=== PATIENT | male | born 1945 | race Caucasian/White ===

== ENCOUNTER 2019-03-11 23:36 | Inpatient (IN) | payer MEDICARE, OTHER ==
[~2019-03-11] VITALS: Ht 172.7 cm; Wt 94.8 kg
[2019-03-12] MEDS ORDERED: VANCOMYCIN 1GM IVPB FOR OMNI 250 ML IV ONE (00:45)
[2019-03-12 00:58] LABS: BASO # 0.1 x10^3/uL (0.0-0.2); BASO % 1 % (0-3); EOS # 0.7 x10^3/uL (0.0-0.7); EOS % 6 % (0-3); HEMATOCRIT 43.2 % (39.0-53.0); HEMOGLOBIN 14.8 g/dL (13.0-17.5); LYMPH # 2.1 x10^3/uL (1.0-4.8); LYMPH % 19 % (24-48); MEAN CORPUSCULAR HEMOGLOBIN 30 pg (25-35); MEAN CORPUSCULAR HGB CONC 34 g/dL (31-37); MEAN CORPUSCULAR VOLUME 88 fL (79-100); MONO # 1.1 x10^3/uL (0.0-1.1); MONO % 11 % (0-9); NEUT # 6.7 x10^3/uL (1.8-7.7); NEUT % 63 % (31-73); PLATELET COUNT 238 x10^3/uL (140-400); RED CELL DISTRIBUTION WIDTH 14.1 % (11.5-14.5); WHITE BLOOD COUNT 10.7 x10^3/uL (4.0-11.0)
[2019-03-12] MEDS ORDERED: VANCOMYCIN 2 GM in IV NORMAL SALINE 500ML BAG 500 ML IV ONE (01:00)
[2019-03-12] MEDS ORDERED: MORPHINE SULFATE 4 MG/ML VIAL. IV ONE (01:00)
[2019-03-12 01:09] LABS: CALCIUM 9.2 mg/dL (8.5-10.1); CREATININE 1.2 mg/dL (0.7-1.3)
[2019-03-12 01:10] LABS: GFR 59.5; PROTHROMBIN TIME PATIENT 13.8 SEC (11.7-14.0)
--- NOTE | 2019-03-12 01:14 | RAD ---
Left lower extremity venous duplex study 03/12/2019 Clinical History: Left leg pain and redness. Technique: Using a combination of real time ultrasound imaging and color-flow and pulse Doppler imaging techniques along with graded compression and augmentation, duplex evaluation of the deep venous system of the left lower extremity was performed. Multiple images were obtained. Findings: There is no sonographic evidence of deep venous thrombosis involving the visualized deep venous structures of the left lower extremity. Impression: Negative study. Electronically signed by: Barrie Marshall MD (03/12/2019 1:11 AM) [facility]
[2019-03-12 01:15] LABS: ALBUMIN 3.3 g/dL (3.4-5.0); ALBUMIN/GLOBULIN RATIO 0.8 (1.0-1.7); TOTAL BILIRUBIN 0.7 mg/dL (0.2-1.0); TOTAL PROTEIN 7.6 g/dL (6.4-8.2)
--- NOTE | 2019-03-12 01:20 | PHYS DOC ---
Past Medical History Past Medical History: CAD, High Cholesterol, Hypertension, Hyperthyroid, [place] Additional Past Medical Histor: PTSD Past Surgical History: Appendectomy Additional Information: VAPES Alcohol Use: None Drug Use: None Social History Narrative: PT STATES HE DID SPEED FOR 50 YEARS, IS NOW SOBER Adult General Chief Complaint Chief Complaint: CELLULITIS HPI HPI Patient is a 73 year old male who presented to ER today for evaluation of left leg swelling and pain, rash for about 5 months. He had been evaluated and treated [place] the [place], had been taking antibiotics and applied antibiotic ointment to his leg but he did not get any better. Patient said the pain is getting worse so he came here for evaluation. Patient denies any fever. Patient denies any chest pain, no trouble breathing. Review of Systems Review of Systems Constitutional: Denies fever or chills [] Eyes: Denies change in visual acuity, redness, or eye pain [] HENT: Denies nasal congestion or sore throat [] Respiratory: Denies cough or shortness of breath [] Cardiovascular: No additional information not addressed in HPI [] GI: Denies abdominal pain, nausea, vomiting, bloody stools or diarrhea [] : Denies dysuria or hematuria [] Musculoskeletal: Denies back pain, left leg pain and swelling. Integument: rash on legs. Neurologic: Denies headache, focal weakness or sensory changes [] Endocrine: Denies polyuria or polydipsia [] All other systems were reviewed and found to be within normal limits, except as documented in this note. Current Medications Current Medications Current Medications Medications (Trade) Dose Ordered Sig/Marcio Start Time Stop Time Status Last Admin Dose Admin Morphine Sulfate (Morphine Sulfate) 4 mg 1X ONCE 03/12/19 01:00 03/12/19 01:01 DC 03/12/19 00:58 4 MG Vancomycin HCl (Vanco Per Pharmacy) 1 each PRN DAILY PRN 03/12/19 00:45 03/12/19 04:31 1 EACH Vancomycin HCl 2 gm/Sodium Chloride 500 ml @ 250 mls/hr 1X ONCE 03/12/19 01:00 03/12/19 02:59 DC 03/12/19 01:00 250 MLS/HR Allergies Allergies Allergies Coded Allergies Type Severity Reaction Last Updated Verified No Known Drug Allergies 03/12/19 No Physical Exam Physical Exam Constitutional: Well developed, well nourished, no acute distress, non-toxic appearance. [] HENT: Normocephalic, atraumatic, bilateral external ears normal, oropharynx moist, no oral exudates, nose normal. [] Eyes: PERRLA, EOMI, conjunctiva normal, no discharge. [] Neck: Normal range of motion, no tenderness, supple, no stridor. [] Cardiovascular:Heart rate regular rhythm, no murmur [] Lungs & Thorax: Bilateral breath sounds clear to auscultation [] Abdomen: Bowel sounds normal, soft, no tenderness, no masses, no pulsatile masses. [] Skin: Warm, dry, venous stasis appearance on both legs, worse on left leg, erythema, crusted lesions, with clear fluid oozing from the wound. Back: No tenderness, no CVA tenderness. [] Extremities: left leg is erythematous, swollen, tender to palpation. Neurologic: Alert and oriented X 3, normal motor function, normal sensory function, no focal deficits noted. [] Psychologic: Affect normal, judgement normal, mood normal. [] Current Patient Data Vital Signs Vital Signs Date Time Temp Pulse Resp B/P (MAP) Pulse Ox O2 Delivery O2 Flow Rate FiO2 03/12/19 00:58 18 03/12/19 00:20 100.2 71 174/81 (112) 93 Room Air 100.2 Lab Values Laboratory Tests Test 03/12/19 00:26 White Blood Count 10.7 x10^3/uL (4.0-11.0) Red Blood Count 4.90 x10^6/uL (4.30-5.70) Hemoglobin 14.8 g/dL (13.0-17.5) Hematocrit 43.2 % (39.0-53.0) Mean Corpuscular Volume 88 fL (79-100) Mean Corpuscular Hemoglobin 30 pg (25-35) Mean Corpuscular Hemoglobin Concent 34 g/dL (31-37) Red Cell Distribution Width 14.1 % (11.5-14.5) Platelet Count 238 x10^3/uL (140-400) Neutrophils (%) (Auto) 63 % (31-73) Lymphocytes (%) (Auto) 19 % (24-48) L Monocytes (%) (Auto) 11 % (0-9) H Eosinophils (%) (Auto) 6 % (0-3) H Basophils (%) (Auto) 1 % (0-3) Neutrophils # (Auto) 6.7 x10^3/uL (1.8-7.7) Lymphocytes # (Auto) 2.1 x10^3/uL (1.0-4.8) Monocytes # (Auto) 1.1 x10^3/uL (0.0-1.1) Eosinophils # (Auto) 0.7 x10^3/uL (0.0-0.7) Basophils # (Auto) 0.1 x10^3/uL (0.0-0.2) Prothrombin Time 13.8 SEC (11.7-14.0) Prothrombin Time INR 1.1 (0.8-1.1) PTT 27 SEC (24-38) Sodium Level 140 mmol/L (136-145) Potassium Level 3.0 mmol/L (3.5-5.1) L Chloride Level 102 mmol/L (98-107) Carbon Dioxide Level 28 mmol/L (21-32) Anion Gap 10 (6-14) Blood Urea Nitrogen 16 mg/dL (8-26) Creatinine 1.2 mg/dL (0.7-1.3) Estimated GFR (Cockcroft-Gault) 59.5 BUN/Creatinine Ratio 13 (6-20) Glucose Level 140 mg/dL (70-99) H Calcium Level 9.2 mg/dL (8.5-10.1) Total Bilirubin 0.7 mg/dL (0.2-1.0) Aspartate Amino Transferase (AST) 15 U/L (15-37) Alanine Aminotransferase (ALT) 23 U/L (16-63) Alkaline Phosphatase 160 U/L (46-116) H YG-Syk-W-Type Natriuretic Peptide 208 pg/mL (0-124) H Total Protein 7.6 g/dL (6.4-8.2) Albumin 3.3 g/dL (3.4-5.0) L Albumin/Globulin Ratio 0.8 (1.0-1.7) L Laboratory Tests 03/12/19 00:26 Laboratory Tests 03/12/19 00:26 EKG EKG [] Radiology/Procedures Radiology/Procedures [][facility] [address] [place] [address] IMAGING REPORT Signed PATIENT: PRESTON HAMILTON ACCOUNT: [id number] : 1945 LOCATION: ER AGE: 73 SEX: M EXAM STATUS: REG ER ORD. PHYSICIAN: KATIE MENDOZA DO REASON: LEFT LEG PAIN AND SWELLING PROCEDURE: VENOUS LOWER EXTREMITY LEFT Left lower extremity venous duplex study 03/12/2019 Clinical History: Left leg pain and redness. Technique: Using a combination of real time ultrasound imaging and color-flow and pulse Doppler imaging techniques along with graded compression and augmentation, duplex evaluation of the deep venous system of the left lower extremity was performed. Multiple images were obtained. Findings: There is no sonographic evidence of deep venous thrombosis involving the visualized deep venous structures of the left lower extremity. Impression: Negative study. Electronically signed by: Barrie Orlando MD (03/12/2019 1:11 AM) [facility] DICTATED and SIGNED BY: BARRIE ORLANDO MD DATE: 03/12/19 011 Course & Med Decision Making Course & Med Decision Making Pertinent Labs and Imaging studies reviewed. (See chart for details) [] Dragon Disclaimer Dragon Disclaimer This electronic medical record was generated, in whole or in part, using a voice recognition dictation system. Departure Departure Impression: Primary Impression: Cellulitis of left lower extremity Disposition: ADMITTED INPATIENT Admitting Physician: YUNIOR Condition: STABLE Referrals: NO PCP (PCP) KATIE MENDOZA DO Mar 12, 2019 01:20
[2019-03-12] MEDS ORDERED: ONDANSETRON PF 4 MG/2 ML VIAL. IV PRN (01:30)
[2019-03-12] MEDS ORDERED: POTASSIUM CHLORIDE 20 MEQ TABLET.ER. PO ONE ×2 (02:00→14:15)
[2019-03-12 02:15] VITALS: BP 183/95
[2019-03-12] MEDS ORDERED: METO50TA6 PO (03:35)
[2019-03-12] MEDS: VANCOMYCIN PER PHARMACY MC PRN ×2 (04:31→12:26)
--- NOTE | 2019-03-12 04:31 | NUR ---
Pharmacy Vancomycin Dosing Note S:Consulted to monitor and dose vancomycin started 03/12/19. O:PRESTON HAMILTON is a 73 year old M with Cellulitis . Height: 5 feet, 8 inches Weight: 94.593965 kg Carter Body Weight: 68.40 Adjusted Body Weight: 78.96 Dosing Weight: Actual Other Antibiotics: LABS: Last BUN: 16 Last Creatinine: 1.2 Creatinine Clearance: 62 mL/min Last WBC: 10.7 Last Procalcitonin: Tmax (past 24 hours): Microbiology: I/O: Drug Levels: Last level: on at Last dose given 03/12/19 at 0100 Vancomycin Dosing: Loading Dose: 2000 mg x1 Dosing Weight: Actual Target Trough: 10-20 A: Based on: WT AND CRCL P: 1. Vancomycin 1250 mg IV q12h 2. Follow up Trough level on 03/13/19 at 1230 3. Pharmacy will continue to monitor, follow and adjust therapy as needed. CHARU MONCADA RPH, 03/12/19 0431 Signed: 03/12/19 at 0432 by CHARU MONCADA RPH PHA
[2019-03-12] MEDS: MORPHINE SULFATE 4 MG/ML VIAL. IV PRN ×3 (06:50→22:21)
[2019-03-12 07:00] VITALS: BP 135/75
--- NOTE | 2019-03-12 10:45 | NUR ---
wound care patient seen per wound care consult. see wound assessment. patient has a large stasis ulcer with a moderate amount of yellow creamy drainage to the left lower leg, the wound was cleaned, measured and redressed with Aquacel Ag with a non adherent foam with Kerlix and tape. patient need lotion applied to bilateral lower leg with Xeroform gauze over the dry scaly areas. dressings applied at this time. patient assessed from head to toe an no other wounds noted at this time. wound care will continue to f/u.
[2019-03-12 11:00] VITALS: BP 151/85
[2019-03-12] MEDS: HYDROcodone/APAP 5/325MG 1 TAB TABLET PO PRN ×2 (12:06→20:21)
--- NOTE | 2019-03-12 12:13 | PDOC1 ---
History and Physical Date of Admission Date of Admission DATE: 03/12/19 TIME: 12:12 Identification/Chief Complaint Chief Complaint SEEN IN er , 73 year old male who presented to ER today for evaluation of left leg swelling and pain, rash for about 5 months. He had been evaluated and treated at the [place], had been taking antibiotics and applied antibiotic ointment to his leg but he did not get any better. Patient said the pain is getting worse so he came here for evaluation. Patient denies any fever Past Medical History Past Medical History Past Medical History Past Medical History: CAD, High Cholesterol, Hypertension, Hyperthyroid, [place] Additional Past Medical Histor: PTSD Past Surgical History: Appendectomy Additional Information: VAPES Alcohol Use: None Drug Use: None Social History Narrative: PT STATES HE DID SPEED FOR 50 YEARS, IS NOW SOBER family hx obesity Family History Family History: High Cholestrol Social History Smoke: No ALCOHOL: none Drugs: None Current Medications Current Medications Current Medications Vancomycin HCl 250 ml @ 250 mls/hr 1X ONCE IV ; Start 03/12/19 at 00:45; Stop 03/12/19 at 01:44; Status UNV Morphine Sulfate (Morphine Sulfate) 4 mg 1X ONCE IV Last administered on 03/12at 00:58; Start 03/12/19 at 01:00; Stop 03/12/19 at 01:01; Status DC Vancomycin HCl (Vanco Per Pharmacy) 1 each PRN DAILY PRN MC SEE COMMENTS Last administered on 03/12/19at 04:31; Start 03/12/19 at 00:45 Vancomycin HCl 2 gm/Sodium Chloride 500 ml @ 250 mls/hr 1X ONCE IV Last administered on 03/12/19at 01:00; Start 03/12/19 at 01:00; Stop 03/12/19 at 02:59; Status DC Ondansetron HCl (Zofran) 4 mg PRN Q8HRS PRN IV NAUSEA/VOMITING 1ST CHOICE; Start 03/12/19 at 01:30; Stop 03/13/19 at 01:29 Morphine Sulfate (Morphine Sulfate) 4 mg PRN Q6HRS PRN IV SEVERE PAIN 7-10 Last administered on 03/12/19at 06:50; Start 03/12/19 at 01:30 Potassium Chloride (Klor-Con) 40 meq 1X ONCE PO Last administered on 03/12/19at 03:06; Start 03/12/19 at 02:00; Stop 03/12/19 at 02:01; Status DC Vancomycin HCl 1.25 gm/Sodium Chloride 250 ml @ 167 mls/hr Q12H IV ; Start 03/12/19 at 13:00 Vancomycin HCl (Vancomycin Trough Level) 1 each 1X ONCE MC ; Start 03/13/19 at 12:30; Stop 03/13/19 at 12:31 Acetaminophen/ Hydrocodone Bitart (Lortab 5/325) 1 tab PRN Q4HRS PRN PO PAIN Last administered on 03/12/19at 12:06; Start 03/12/19 at 12:00 Active Scripts Active Reported Metoprolol Tartrate 50 Mg Tablet 1 Tab PO BID Allergies Allergies: Coded Allergies: No Known Drug Allergies (Unverified , 03/12/19) ROS Review of System Review of Systems Review of Systems Constitutional: Denies fever or chills [] Eyes: Denies change in visual acuity, redness, or eye pain [] HENT: Denies nasal congestion or sore throat [] Respiratory: Denies cough or shortness of breath [] Cardiovascular: No additional information not addressed in HPI [] GI: Denies abdominal pain, nausea, vomiting, bloody stools or diarrhea [] : Denies dysuria or hematuria [] Musculoskeletal: Denies back pain, left leg pain and swelling. Integument: rash on legs. Neurologic: Denies headache, focal weakness or sensory changes [] Endocrine: Denies polyuria or polydipsia [] 14 pt systems were reviewed and found to be within normal limits, except as documented . Physical Exam Physical Exam Physical Exam Physical Exam Constitutional: Well developed, well nourished, no acute distress, non-toxic appearance. [] HENT: Normocephalic, atraumatic, bilateral external ears normal, oropharynx moist, no oral exudates, nose normal. [] Eyes: PERRLA, EOMI, conjunctiva normal, no discharge. [] Neck: Normal range of motion, no tenderness, supple, no stridor. [] Cardiovascular:Heart rate regular rhythm, no murmur [] Lungs & Thorax: Bilateral breath sounds clear to auscultation [] Abdomen: Bowel sounds normal, soft, no tenderness, no masses, no pulsatile masses. [] Skin: Warm, dry, venous stasis appearance on both legs, worse on left leg, erythema, crusted lesions, with clear fluid oozing from the wound. Back: No tenderness, no CVA tenderness. [] Extremities: left leg is erythematous, swollen, tender to palpation. Neurologic: Alert and oriented X 3, normal motor function, normal sensory function, no focal deficits noted. [] Psychologic: Affect normal, judgement normal, mood normal. [] General: Alert, Oriented X3, Cooperative HEENT: EOMI, Mucous membr. moist/pink Rectal Exam: not examined PELVIC: Examination not indicated Extremities: No cyanosis Neuro: Normal speech, Cranial nerves 3-12 NL Psych/Mental Status: Mental status NL, Mood NL Vitals Vitals Vital Signs Date Time Temp Pulse Resp B/P (MAP) Pulse Ox O2 Delivery O2 Flow Rate FiO2 03/12/19 12:06 Room Air 03/12/19 11:00 99.2 106 17 151/85 (107) 92 99.2 Labs Labs Laboratory Tests Test 03/12/19 00:26 White Blood Count 10.7 x10^3/uL (4.0-11.0) Red Blood Count 4.90 x10^6/uL (4.30-5.70) Hemoglobin 14.8 g/dL (13.0-17.5) Hematocrit 43.2 % (39.0-53.0) Mean Corpuscular Volume 88 fL (79-100) Mean Corpuscular Hemoglobin 30 pg (25-35) Mean Corpuscular Hemoglobin Concent 34 g/dL (31-37) Red Cell Distribution Width 14.1 % (11.5-14.5) Platelet Count 238 x10^3/uL (140-400) Neutrophils (%) (Auto) 63 % (31-73) Lymphocytes (%) (Auto) 19 % (24-48) Monocytes (%) (Auto) 11 % (0-9) Eosinophils (%) (Auto) 6 % (0-3) Basophils (%) (Auto) 1 % (0-3) Neutrophils # (Auto) 6.7 x10^3/uL (1.8-7.7) Lymphocytes # (Auto) 2.1 x10^3/uL (1.0-4.8) Monocytes # (Auto) 1.1 x10^3/uL (0.0-1.1) Eosinophils # (Auto) 0.7 x10^3/uL (0.0-0.7) Basophils # (Auto) 0.1 x10^3/uL (0.0-0.2) Prothrombin Time 13.8 SEC (11.7-14.0) Prothromb Time International Ratio 1.1 (0.8-1.1) Activated Partial Thromboplast Time 27 SEC (24-38) Sodium Level 140 mmol/L (136-145) Potassium Level 3.0 mmol/L (3.5-5.1) Chloride Level 102 mmol/L (98-107) Carbon Dioxide Level 28 mmol/L (21-32) Anion Gap 10 (6-14) Blood Urea Nitrogen 16 mg/dL (8-26) Creatinine 1.2 mg/dL (0.7-1.3) Estimated GFR (Cockcroft-Gault) 59.5 BUN/Creatinine Ratio 13 (6-20) Glucose Level 140 mg/dL (70-99) Calcium Level 9.2 mg/dL (8.5-10.1) Total Bilirubin 0.7 mg/dL (0.2-1.0) Aspartate Amino Transf (AST/SGOT) 15 U/L (15-37) Alanine Aminotransferase (ALT/SGPT) 23 U/L (16-63) Alkaline Phosphatase 160 U/L (46-116) XA-Eqi-V-Type Natriuretic Peptide 208 pg/mL (0-124) Total Protein 7.6 g/dL (6.4-8.2) Albumin 3.3 g/dL (3.4-5.0) Albumin/Globulin Ratio 0.8 (1.0-1.7) Laboratory Tests Test 03/12/19 00:26 White Blood Count 10.7 x10^3/uL (4.0-11.0) Red Blood Count 4.90 x10^6/uL (4.30-5.70) Hemoglobin 14.8 g/dL (13.0-17.5) Hematocrit 43.2 % (39.0-53.0) Mean Corpuscular Volume 88 fL (79-100) Mean Corpuscular Hemoglobin 30 pg (25-35) Mean Corpuscular Hemoglobin Concent 34 g/dL (31-37) Red Cell Distribution Width 14.1 % (11.5-14.5) Platelet Count 238 x10^3/uL (140-400) Neutrophils (%) (Auto) 63 % (31-73) Lymphocytes (%) (Auto) 19 % (24-48) Monocytes (%) (Auto) 11 % (0-9) Eosinophils (%) (Auto) 6 % (0-3) Basophils (%) (Auto) 1 % (0-3) Neutrophils # (Auto) 6.7 x10^3/uL (1.8-7.7) Lymphocytes # (Auto) 2.1 x10^3/uL (1.0-4.8) Monocytes # (Auto) 1.1 x10^3/uL (0.0-1.1) Eosinophils # (Auto) 0.7 x10^3/uL (0.0-0.7) Basophils # (Auto) 0.1 x10^3/uL (0.0-0.2) Prothrombin Time 13.8 SEC (11.7-14.0) Prothromb Time International Ratio 1.1 (0.8-1.1) Activated Partial Thromboplast Time 27 SEC (24-38) Sodium Level 140 mmol/L (136-145) Potassium Level 3.0 mmol/L (3.5-5.1) Chloride Level 102 mmol/L (98-107) Carbon Dioxide Level 28 mmol/L (21-32) Anion Gap 10 (6-14) Blood Urea Nitrogen 16 mg/dL (8-26) Creatinine 1.2 mg/dL (0.7-1.3) Estimated GFR (Cockcroft-Gault) 59.5 BUN/Creatinine Ratio 13 (6-20) Glucose Level 140 mg/dL (70-99) Calcium Level 9.2 mg/dL (8.5-10.1) Total Bilirubin 0.7 mg/dL (0.2-1.0) Aspartate Amino Transf (AST/SGOT) 15 U/L (15-37) Alanine Aminotransferase (ALT/SGPT) 23 U/L (16-63) Alkaline Phosphatase 160 U/L (46-116) TU-Cxc-M-Type Natriuretic Peptide 208 pg/mL (0-124) Total Protein 7.6 g/dL (6.4-8.2) Albumin 3.3 g/dL (3.4-5.0) Albumin/Globulin Ratio 0.8 (1.0-1.7) Images Images Left lower extremity venous duplex study 03/12/2019 Clinical History: Left leg pain and redness. Technique: Using a combination of real time ultrasound imaging and color-flow and pulse Doppler imaging techniques along with graded compression and augmentation, duplex evaluation of the deep venous system of the left lower extremity was performed. Multiple images were obtained. Findings: There is no sonographic evidence of deep venous thrombosis involving the visualized deep venous structures of the left lower extremity. Impression: Negative study. VTE Prophylaxis Ordered VTE Prophylaxis Devices: Contraindicated VTE Pharmacological Prophylaxi: Yes Assessment/Plan Assessment/Plan Impression: Cellulitis of left lower extremity obesity hypokalemia pain at site of cellulitis hypertension plan ADMITTED /// INPATIENT emperic iv antibiotics, vanc replace k po am labs dvt prophylaxis, sq lovenox iv pain control 63 min pt exam, chart review, > 50% of time spent with exam, chart review, pt care coordination LAUREL GLASS MD Mar 12, 2019 12:13
[2019-03-12] MEDS: VANCOMYCIN 1.25 GM in IV NORMAL SALINE 250ML 250 ML IV SCH (12:59)
--- NOTE | 2019-03-12 13:24 | NUR ---
SS following for discharge planning. SS reviewed pt chart. Pt is from home and is currently on room air. PT/OT ordered. SS will await PT/OT evaluations and recommendations and will proceed accordingly with discharge planning.
[2019-03-12] MEDS: METOPROLOL TART IMMED RELEASE 50 MG TABLET. PO SCH ×2 (14:40→20:22)
[2019-03-12 15:00] VITALS: BP 161/80
[2019-03-12] MEDS: ENOXAPARIN 40 MG/0.4 ML SYRINGE. SQ SCH (17:22)
[2019-03-12] MEDS: ASCORBIC ACID 500 MG TABLET PO SCH (17:22)
[2019-03-12] MEDS: MULTIVITAMIN with MINERAL TABLET. PO SCH (17:22)
[2019-03-12 19:35] VITALS: BP 100/67
[2019-03-12] MEDS ORDERED: NICOTINE POLACRILEX 2MG GUM PACKAGE of 12. BC PRN (19:45)
[2019-03-12] MEDS ORDERED: POLYETHYLENE GLYCOL 3350 17 GM PACKET. PO PRN (19:45)
[2019-03-12] MEDS ORDERED: CALCIUM CARBONATE 500 MG TAB.CHEW PO PRN (19:45)
[2019-03-12] MEDS ORDERED: MAGNESIUM HYDROXIDE 2,400 MG/30 ML ORAL.SUSP. PO PRN (19:45)
[2019-03-12] MEDS: NICOTINE 21MG PATCH. TD PRN (20:21)
[2019-03-12] MEDS: LACTOBACILLUS RHAMNOSUS GG 1 CAPSULE. PO SCH (20:21)
[2019-03-12] MEDS: TEMAZEPAM 7.5 MG CAPSULE PO PRN (20:21)
[2019-03-12 23:35] VITALS: BP 137/76
[2019-03-13] MEDS: VANCOMYCIN 1.25 GM in IV NORMAL SALINE 250ML 250 ML IV SCH ×2 (00:19→15:02)
[2019-03-13 03:35] VITALS: BP 119/61
[2019-03-13 05:52] LABS: BASO # 0.2 x10^3/uL (0.0-0.2); BASO % 2 % (0-3); EOS # 0.7 x10^3/uL (0.0-0.7); EOS % 7 % (0-3); HEMATOCRIT 40.1 % (39.0-53.0); HEMOGLOBIN 13.8 g/dL (13.0-17.5); LYMPH # 1.7 x10^3/uL (1.0-4.8); LYMPH % 17 % (24-48); MEAN CORPUSCULAR HEMOGLOBIN 31 pg (25-35); MEAN CORPUSCULAR HGB CONC 35 g/dL (31-37); MEAN CORPUSCULAR VOLUME 89 fL (79-100); MONO % 10 % (0-9); NEUT # 6.3 x10^3/uL (1.8-7.7); NEUT % 64 % (31-73); PLATELET COUNT 226 x10^3/uL (140-400); RED BLOOD COUNT 4.53 x10^6/uL (4.30-5.70); RED CELL DISTRIBUTION WIDTH 14.5 % (11.5-14.5); WHITE BLOOD COUNT 9.9 x10^3/uL (4.0-11.0)
[2019-03-13 06:10] LABS: ALBUMIN/GLOBULIN RATIO 0.8 (1.0-1.7); CALCIUM 8.8 mg/dL (8.5-10.1); CREATININE 1.1 mg/dL (0.7-1.3); GFR 65.8; POTASSIUM 3.6 mmol/L (3.5-5.1); TOTAL BILIRUBIN 0.7 mg/dL (0.2-1.0); TOTAL PROTEIN 6.7 g/dL (6.4-8.2)
[2019-03-13 07:00] VITALS: BP 143/75
[2019-03-13] MEDS ORDERED: OXYC1TAB15 PO (07:51)
[2019-03-13] MEDS ORDERED: oxyCODONE/APAP 5/325 1 TAB TABLET PO PRN (08:00)
[2019-03-13] MEDS: oxyCODONE/APAP 5/325 1 TAB TABLET PO PRN ×2 (08:40→19:10)
[2019-03-13] MEDS: METOPROLOL TART IMMED RELEASE 50 MG TABLET. PO SCH ×2 (08:40→21:10)
[2019-03-13] MEDS: MULTIVITAMIN with MINERAL TABLET. PO SCH (08:40)
[2019-03-13] MEDS: ASCORBIC ACID 500 MG TABLET PO SCH (08:40)
[2019-03-13] MEDS: LACTOBACILLUS RHAMNOSUS GG 1 CAPSULE. PO SCH ×2 (08:40→21:10)
[2019-03-13] MEDS: POTASSIUM CHLORIDE 20 MEQ TABLET.ER. PO SCH (08:40)
[2019-03-13] MEDS: diphenhydrAMINE HCL 25 MG CAPSULE PO PRN (08:41)
--- NOTE | 2019-03-13 10:29 | PDOC ---
PROGRESS NOTES History of Present Illness History of Present Illness Clinical History: Left leg pain and redness. Technique: Using a combination of real time ultrasound imaging and color-flow and pulse Doppler imaging techniques along with graded compression and augmentation, duplex evaluation of the deep venous system of the left lower extremity was performed. Multiple images were obtained. Findings: There is no sonographic evidence of deep venous thrombosis involving the visualized deep venous structures of the left lower extremity. Impression: Negative study. VTE Prophylaxis Ordered VTE Prophylaxis Devices: Contraindicated VTE Pharmacological Prophylaxi: Yes Assessment/Plan Assessment/Plan Impression: Cellulitis of left lower extremity obesity hypokalemia pain at site of cellulitis hypertension plan ADMITTED /// INPATIENT emperic iv antibiotics, vanc replace k po am labs dvt prophylaxis, sq lovenox iv pain control ID consult 26 min pt exam, chart review, > 50% of time spent with exam, chart review, pt care coordination Vitals Vitals Vital Signs Date Time Temp Pulse Resp B/P (MAP) Pulse Ox O2 Delivery O2 Flow Rate FiO2 03/13/19 08:40 Room Air 03/13/19 08:40 85 143/75 03/13/19 07:00 99.0 18 90 99.0 Physical Exam General: Alert, Oriented X3, Cooperative, No acute distress Heart: Regular rate Lungs: Clear Abdomen: Normal bowel sounds, Soft, No tenderness Extremities: No clubbing, No cyanosis Labs LABS Laboratory Tests Test 03/13/19 04:15 White Blood Count 9.9 x10^3/uL (4.0-11.0) Red Blood Count 4.53 x10^6/uL (4.30-5.70) Hemoglobin 13.8 g/dL (13.0-17.5) Hematocrit 40.1 % (39.0-53.0) Mean Corpuscular Volume 89 fL (79-100) Mean Corpuscular Hemoglobin 31 pg (25-35) Mean Corpuscular Hemoglobin Concent 35 g/dL (31-37) Red Cell Distribution Width 14.5 % (11.5-14.5) Platelet Count 226 x10^3/uL (140-400) Neutrophils (%) (Auto) 64 % (31-73) Lymphocytes (%) (Auto) 17 % (24-48) Monocytes (%) (Auto) 10 % (0-9) Eosinophils (%) (Auto) 7 % (0-3) Basophils (%) (Auto) 2 % (0-3) Neutrophils # (Auto) 6.3 x10^3/uL (1.8-7.7) Lymphocytes # (Auto) 1.7 x10^3/uL (1.0-4.8) Monocytes # (Auto) 1.0 x10^3/uL (0.0-1.1) Eosinophils # (Auto) 0.7 x10^3/uL (0.0-0.7) Basophils # (Auto) 0.2 x10^3/uL (0.0-0.2) Sodium Level 139 mmol/L (136-145) Potassium Level 3.6 mmol/L (3.5-5.1) Chloride Level 104 mmol/L (98-107) Carbon Dioxide Level 27 mmol/L (21-32) Anion Gap 8 (6-14) Blood Urea Nitrogen 18 mg/dL (8-26) Creatinine 1.1 mg/dL (0.7-1.3) Estimated GFR (Cockcroft-Gault) 65.8 BUN/Creatinine Ratio 16 (6-20) Glucose Level 111 mg/dL (70-99) Calcium Level 8.8 mg/dL (8.5-10.1) Total Bilirubin 0.7 mg/dL (0.2-1.0) Aspartate Amino Transf (AST/SGOT) 16 U/L (15-37) Alanine Aminotransferase (ALT/SGPT) 21 U/L (16-63) Alkaline Phosphatase 137 U/L (46-116) Total Protein 6.7 g/dL (6.4-8.2) Albumin 3.0 g/dL (3.4-5.0) Albumin/Globulin Ratio 0.8 (1.0-1.7) Comment Review of Relevant I have reviewed the following items ben (where applicable) has been applied. Labs Laboratory Tests Test 03/12/19 00:26 03/13/19 04:15 White Blood Count 10.7 x10^3/uL (4.0-11.0) 9.9 x10^3/uL (4.0-11.0) Red Blood Count 4.90 x10^6/uL (4.30-5.70) 4.53 x10^6/uL (4.30-5.70) Hemoglobin 14.8 g/dL (13.0-17.5) 13.8 g/dL (13.0-17.5) Hematocrit 43.2 % (39.0-53.0) 40.1 % (39.0-53.0) Mean Corpuscular Volume 88 fL (79-100) 89 fL (79-100) Mean Corpuscular Hemoglobin 30 pg (25-35) 31 pg (25-35) Mean Corpuscular Hemoglobin Concent 34 g/dL (31-37) 35 g/dL (31-37) Red Cell Distribution Width 14.1 % (11.5-14.5) 14.5 % (11.5-14.5) Platelet Count 238 x10^3/uL (140-400) 226 x10^3/uL (140-400) Neutrophils (%) (Auto) 63 % (31-73) 64 % (31-73) Lymphocytes (%) (Auto) 19 % (24-48) 17 % (24-48) Monocytes (%) (Auto) 11 % (0-9) 10 % (0-9) Eosinophils (%) (Auto) 6 % (0-3) 7 % (0-3) Basophils (%) (Auto) 1 % (0-3) 2 % (0-3) Neutrophils # (Auto) 6.7 x10^3/uL (1.8-7.7) 6.3 x10^3/uL (1.8-7.7) Lymphocytes # (Auto) 2.1 x10^3/uL (1.0-4.8) 1.7 x10^3/uL (1.0-4.8) Monocytes # (Auto) 1.1 x10^3/uL (0.0-1.1) 1.0 x10^3/uL (0.0-1.1) Eosinophils # (Auto) 0.7 x10^3/uL (0.0-0.7) 0.7 x10^3/uL (0.0-0.7) Basophils # (Auto) 0.1 x10^3/uL (0.0-0.2) 0.2 x10^3/uL (0.0-0.2) Prothrombin Time 13.8 SEC (11.7-14.0) Prothromb Time International Ratio 1.1 (0.8-1.1) Activated Partial Thromboplast Time 27 SEC (24-38) Sodium Level 140 mmol/L (136-145) 139 mmol/L (136-145) Potassium Level 3.0 mmol/L (3.5-5.1) 3.6 mmol/L (3.5-5.1) Chloride Level 102 mmol/L (98-107) 104 mmol/L (98-107) Carbon Dioxide Level 28 mmol/L (21-32) 27 mmol/L (21-32) Anion Gap 10 (6-14) 8 (6-14) Blood Urea Nitrogen 16 mg/dL (8-26) 18 mg/dL (8-26) Creatinine 1.2 mg/dL (0.7-1.3) 1.1 mg/dL (0.7-1.3) Estimated GFR (Cockcroft-Gault) 59.5 65.8 BUN/Creatinine Ratio 13 (6-20) 16 (6-20) Glucose Level 140 mg/dL (70-99) 111 mg/dL (70-99) Calcium Level 9.2 mg/dL (8.5-10.1) 8.8 mg/dL (8.5-10.1) Total Bilirubin 0.7 mg/dL (0.2-1.0) 0.7 mg/dL (0.2-1.0) Aspartate Amino Transf (AST/SGOT) 15 U/L (15-37) 16 U/L (15-37) Alanine Aminotransferase (ALT/SGPT) 23 U/L (16-63) 21 U/L (16-63) Alkaline Phosphatase 160 U/L (46-116) 137 U/L (46-116) DA-Ezo-R-Type Natriuretic Peptide 208 pg/mL (0-124) Total Protein 7.6 g/dL (6.4-8.2) 6.7 g/dL (6.4-8.2) Albumin 3.3 g/dL (3.4-5.0) 3.0 g/dL (3.4-5.0) Albumin/Globulin Ratio 0.8 (1.0-1.7) 0.8 (1.0-1.7) Laboratory Tests Test 03/13/19 04:15 White Blood Count 9.9 x10^3/uL (4.0-11.0) Red Blood Count 4.53 x10^6/uL (4.30-5.70) Hemoglobin 13.8 g/dL (13.0-17.5) Hematocrit 40.1 % (39.0-53.0) Mean Corpuscular Volume 89 fL (79-100) Mean Corpuscular Hemoglobin 31 pg (25-35) Mean Corpuscular Hemoglobin Concent 35 g/dL (31-37) Red Cell Distribution Width 14.5 % (11.5-14.5) Platelet Count 226 x10^3/uL (140-400) Neutrophils (%) (Auto) 64 % (31-73) Lymphocytes (%) (Auto) 17 % (24-48) Monocytes (%) (Auto) 10 % (0-9) Eosinophils (%) (Auto) 7 % (0-3) Basophils (%) (Auto) 2 % (0-3) Neutrophils # (Auto) 6.3 x10^3/uL (1.8-7.7) Lymphocytes # (Auto) 1.7 x10^3/uL (1.0-4.8) Monocytes # (Auto) 1.0 x10^3/uL (0.0-1.1) Eosinophils # (Auto) 0.7 x10^3/uL (0.0-0.7) Basophils # (Auto) 0.2 x10^3/uL (0.0-0.2) Sodium Level 139 mmol/L (136-145) Potassium Level 3.6 mmol/L (3.5-5.1) Chloride Level 104 mmol/L (98-107) Carbon Dioxide Level 27 mmol/L (21-32) Anion Gap 8 (6-14) Blood Urea Nitrogen 18 mg/dL (8-26) Creatinine 1.1 mg/dL (0.7-1.3) Estimated GFR (Cockcroft-Gault) 65.8 BUN/Creatinine Ratio 16 (6-20) Glucose Level 111 mg/dL (70-99) Calcium Level 8.8 mg/dL (8.5-10.1) Total Bilirubin 0.7 mg/dL (0.2-1.0) Aspartate Amino Transf (AST/SGOT) 16 U/L (15-37) Alanine Aminotransferase (ALT/SGPT) 21 U/L (16-63) Alkaline Phosphatase 137 U/L (46-116) Total Protein 6.7 g/dL (6.4-8.2) Albumin 3.0 g/dL (3.4-5.0) Albumin/Globulin Ratio 0.8 (1.0-1.7) Medications Current Medications Vancomycin HCl 250 ml @ 250 mls/hr 1X ONCE IV ; Start 03/12/19 at 00:45; Stop 03/12/19 at 01:44; Status UNV Morphine Sulfate (Morphine Sulfate) 4 mg 1X ONCE IV Last administered on 03/12/19at 00:58; Start 03/12/19 at 01:00; Stop 03/12/19 at 01:01; Status DC Vancomycin HCl (Vanco Per Pharmacy) 1 each PRN DAILY PRN MC SEE COMMENTS Last administered on 03/12/19at 12:26; Start 03/12/19 at 00:45 Vancomycin HCl 2 gm/Sodium Chloride 500 ml @ 250 mls/hr 1X ONCE IV Last administered on 03/12/19at 01:00; Start 03/12/19 at 01:00; Stop 03/12/19 at 02:59; Status DC Ondansetron HCl (Zofran) 4 mg PRN Q8HRS PRN IV NAUSEA/VOMITING 1ST CHOICE; Start 03/12/19 at 01:30; Stop 03/13/19 at 01:29; Status DC Morphine Sulfate (Morphine Sulfate) 4 mg PRN Q6HRS PRN IV SEVERE PAIN 7-10 Last administered on 03/12/19at 22:21; Start 03/12/19 at 01:30 Potassium Chloride (Klor-Con) 40 meq 1X ONCE PO Last administered on 03/12/19at 03:06; Start 03/12/19 at 02:00; Stop 03/12/19 at 02:01; Status DC Vancomycin HCl 1.25 gm/Sodium Chloride 250 ml @ 167 mls/hr Q12H IV Last administered on 03/13/19at 00:19; Start 03/12/19 at 13:00 Vancomycin HCl (Vancomycin Trough Level) 1 each 1X ONCE MC ; Start 03/13/19 at 12:30; Stop 03/13/19 at 12:31 Acetaminophen/ Hydrocodone Bitart (Lortab 5/325) 1 tab PRN Q4HRS PRN PO PAIN MILD TO MOD Last administered on 03/12/19 20:21; Start 03/12/19 at 12:00 Lactobacillus Rhamnosus (Culturelle) 1 cap BID PO Last administered on 03/13/19 08:40; Start 03/12/19 at 21:00 Ascorbic Acid (Vitamin C) 500 mg DAILY PO Last administered on 03/13/19 08:40; Start 03/12/19 at 17:00 Multivitamins (Thera M Plus) 1 tab DAILY PO Last administered on 03/13/19 08:40; Start 03/12/19 at 17:00 Potassium Chloride (Klor-Con) 40 meq 1X ONCE PO Last administered on 03/12/19 14:41; Start 03/12/19 at 14:15; Stop 03/12/19 at 14:16; Status DC Potassium Chloride (Klor-Con) 20 meq DAILYWBKFT PO Last administered on 03/13/19 08:40; Start 03/13/19 at 08:00 Enoxaparin Sodium (Lovenox 40mg Syringe) 40 mg Q24H SQ Last administered on 03/12/19 17:22; Start 03/12/19 at 18:00 Metoprolol Tartrate (Lopressor) 50 mg BID PO Last administered on 03/13/19 08:40; Start 03/12/19 at 14:30 Temazepam (Restoril) 7.5 mg PRN QHS PRN PO INSOMNIA Last administered on 03/12/19 20:21; Start 03/12/19 at 19:45 Nicotine Polacrilex (Nicorette Gum) 1 each PRN Q1HR PRN BC SMOKING CESSATION Last administered on 03/12/19 20:34; Start 03/12/19 at 19:45 Nicotine (Nicoderm Cq 21mg) 1 patch PRN DAILY PRN TD SMOKING CESSATION Last administered on 03/12/19 20:21; Start 03/12/19 at 19:45 Calcium Carbonate/ Glycine (Tums) 500 mg PRN AFTMEALHC PRN PO INDIGESTION; Start 03/12/19 at 19:45 Magnesium Hydroxide (Milk Of Magnesia) 2,400 mg PRN DAILY PRN PO CONSTIPATION, 2ND CHOICE; Start 03/12/19 at 19:45 Polyethylene Glycol (miraLAX PACKET) 17 gm PRN DAILY PRN PO CONSTIPATION, 1ST CHOICE; Start 03/12/19 at 19:45 Oxycodone/ Acetaminophen (Percocet 5/325) 1 tab PRN Q6HRS PRN PO PAIN SEVERE; Start 03/13/19 at 08:00; Stop 03/13/19 at 08:00; Status DC Diphenhydramine HCl (Benadryl) 25 mg PRN Q12HR PRN PO ITCHING Last administered on 03/13/19at 08:41; Start 03/13/19 at 08:00 Oxycodone/ Acetaminophen (Percocet 5/325) 1 tab PRN Q4HRS PRN PO PAIN SEVERE Last administered on 03/13/19at 08:40; Start 03/13/19 at 08:00 Active Scripts Active Reported Percocet 5-325 Mg Tablet (Oxycodone/Acetaminophen) 1 Each Tablet 1 Tab PO PRN Q6HRS PRN Metoprolol Tartrate 50 Mg Tablet 1 Tab PO BID Vitals/I & O Vital Sign - Last 24 Hours 03/12/19 03/12/19 03/12/19 03/12/19 11:00 12:06 14:40 14:40 Temp 99.2 99.2 Pulse 106 101 Resp 17 B/P (MAP) 151/85 (107) 161/80 Pulse Ox 92 O2 Delivery Room Air Room Air Room Air 03/12/19 03/12/19 03/12/19 03/12/19 15:00 15:29 19:35 20:00 Temp 98.1 98.9 98.1 98.9 Pulse 101 90 Resp 17 16 B/P (MAP) 161/80 (107) 100/67 (78) Pulse Ox 91 93 O2 Delivery Room Air Room Air Room Air Room Air 03/12/19 03/12/19 03/12/19 03/12/19 20:21 20:22 21:21 22:21 Pulse 101 Resp 20 20 20 B/P (MAP) 161/80 Pulse Ox 91 91 94 O2 Delivery Room Air Room Air Room Air 03/12/19 03/13/19 03/13/19 03/13/19 23:35 03:35 07:00 08:40 Temp 99.0 99.0 99.0 99.0 99.0 99.0 Pulse 85 79 85 85 Resp 18 18 18 B/P (MAP) 137/76 (96) 119/61 (80) 143/75 (97) 143/75 Pulse Ox 91 91 90 O2 Delivery Room Air Room Air Room Air 03/13/19 08:40 O2 Delivery Room Air Intake and Output 03/12/19 03/12/19 03/13/19 14:59 22:59 06:59 Intake Total 400 ml 340 ml Output Total 300 ml Balance 100 ml 340 ml LAUREL GLASS MD Mar 13, 2019 10:29
[2019-03-13 11:00] VITALS: BP 136/83
[2019-03-13 14:04] LABS: VANC TR 15.6 mcg/mL (10.0-20.0)
[2019-03-13 15:00] VITALS: BP 131/54
[2019-03-13] MEDS: VANCOMYCIN PER PHARMACY MC PRN (15:29)
--- NOTE | 2019-03-13 15:29 | NUR ---
Pharmacy Vancomycin Dosing Note S: Consulted to monitor and dose vancomycin started 03/12/19. O: PRESTON HAMILTON is a 73 year old M with Cellulitis. LABS: Last BUN: 18 Last Creatinine: 1.1 Creatinine Clearance: 62 mL/min Last WBC: 9.9 Last Procalcitonin: Tmax (past 24 hours): 99.0 Last Trough level: 15.6 on 03/13/19 at 1330 (late - see comment below) Last dose given 03/13/19 at 1500 Vancomycin Dosing: Dosing Weight: Actual Target Trough: 10-20 A: Based on: today's trough level drawn 1 hour late so corrected trough = 18.1 P: 1. Continue Vancomycin 1250 mg IV q12h 2. Follow up Trough level on 03/13/19 at 1230 3. Pharmacy will continue to monitor, follow and adjust therapy as needed. MONTSERRAT KHAN, [facility], 03/13/19 [id number]
[2019-03-13] MEDS ORDERED: BUDE10.22 IH (16:35)
[2019-03-13] MEDS: ENOXAPARIN 40 MG/0.4 ML SYRINGE. SQ SCH (17:20)
[2019-03-13] MEDS: ALBUTEROL SULFATE 2.5 MG/3 ML NEBU. NEB PRN ×2 (17:25→21:48)
[2019-03-13 19:00] VITALS: BP 170/79
[2019-03-13] MEDS ORDERED: ALBUTEROL SULFATE 2.5 MG/3 ML NEBU. NEB SCH (20:00)
[2019-03-13] MEDS: BUDESONIDE 0.5 MG/2 ML NEBU. NEB SCH (20:00)
[2019-03-13 23:00] VITALS: BP 142/85
[2019-03-14] MEDS: oxyCODONE/APAP 5/325 1 TAB TABLET PO PRN ×4 (01:51→21:47)
[2019-03-14 03:00] VITALS: BP 138/68
[2019-03-14 05:31] LABS: BASO # 0.1 x10^3/uL (0.0-0.2); BASO % 1 % (0-3); EOS # 0.8 x10^3/uL (0.0-0.7); EOS % 7 % (0-3); HEMATOCRIT 38.8 % (39.0-53.0); HEMOGLOBIN 13.2 g/dL (13.0-17.5); LYMPH # 2.1 x10^3/uL (1.0-4.8); LYMPH % 18 % (24-48); MEAN CORPUSCULAR HEMOGLOBIN 30 pg (25-35); MEAN CORPUSCULAR HGB CONC 34 g/dL (31-37); MEAN CORPUSCULAR VOLUME 89 fL (79-100); MONO # 1.1 x10^3/uL (0.0-1.1); MONO % 10 % (0-9); NEUT # 7.4 x10^3/uL (1.8-7.7); NEUT % 64 % (31-73); PLATELET COUNT 231 x10^3/uL (140-400); RED BLOOD COUNT 4.38 x10^6/uL (4.30-5.70); RED CELL DISTRIBUTION WIDTH 14.4 % (11.5-14.5); WHITE BLOOD COUNT 11.5 x10^3/uL (4.0-11.0)
[2019-03-14 05:44] LABS: CALCIUM 8.6 mg/dL (8.5-10.1); CREATININE 1.1 mg/dL (0.7-1.3); GFR 65.8; POTASSIUM 3.8 mmol/L (3.5-5.1)
[2019-03-14 07:00] VITALS: BP 153/72
[2019-03-14] MEDS: BUDESONIDE 0.5 MG/2 ML NEBU. NEB SCH ×2 (07:54→20:19)
[2019-03-14] MEDS: METOPROLOL TART IMMED RELEASE 50 MG TABLET. PO SCH ×2 (08:30→21:38)
[2019-03-14] MEDS: VANCOMYCIN 1.25 GM in IV NORMAL SALINE 250ML 250 ML IV SCH ×2 (08:30→21:42)
[2019-03-14] MEDS: MULTIVITAMIN with MINERAL TABLET. PO SCH (08:30)
[2019-03-14] MEDS: ASCORBIC ACID 500 MG TABLET PO SCH (08:30)
[2019-03-14] MEDS: LACTOBACILLUS RHAMNOSUS GG 1 CAPSULE. PO SCH ×2 (08:30→21:37)
[2019-03-14] MEDS: NICOTINE 21MG PATCH. TD PRN (08:31)
[2019-03-14] MEDS: POTASSIUM CHLORIDE 20 MEQ TABLET.ER. PO SCH (08:31)
--- NOTE | 2019-03-14 10:57 | PDOC ---
PROGRESS NOTES History of Present Illness History of Present Illness Clinical History: Left leg pain and redness. Technique: Using a combination of real time ultrasound imaging and color-flow and pulse Doppler imaging techniques along with graded compression and augmentation, duplex evaluation of the deep venous system of the left lower extremity was performed. Multiple images were obtained. Findings: There is no sonographic evidence of deep venous thrombosis involving the visualized deep venous structures of the left lower extremity. Impression: Negative study. VTE Prophylaxis Ordered VTE Prophylaxis Devices: Contraindicated VTE Pharmacological Prophylaxi: Yes Assessment/Plan Assessment/Plan Impression: Cellulitis of left lower extremity obesity hypokalemia pain at site of cellulitis hypertension plan ADMITTED /// INPATIENT emperic iv antibiotics, vanc , add Zosyn for gram neg and anaerobic coverage replace k po am labs dvt prophylaxis, sq lovenox iv pain control ID following wound cultured 28 min pt exam, chart review, > 50% of time spent with exam, chart review, pt care coordination Vitals Vitals Vital Signs Date Time Temp Pulse Resp B/P (MAP) Pulse Ox O2 Delivery O2 Flow Rate FiO2 03/14/19 08:31 22 Room Air 03/14/19 08:30 105 153/72 03/14/19 07:00 99.8 93 99.8 Physical Exam General: Alert, Oriented X3, Cooperative, No acute distress Heart: Regular rate, Normal S1 Lungs: Clear Abdomen: Normal bowel sounds, Soft, No tenderness Extremities: No clubbing, No cyanosis Skin: Other (see wound pictures) Labs LABS Laboratory Tests Test 03/13/19 13:30 03/14/19 04:50 Vancomycin Level Trough 15.6 mcg/mL (10.0-20.0) Vancomycin Last Dose Date 03/13/19 Vancomycin Last Dose Time 0100 White Blood Count 11.5 x10^3/uL (4.0-11.0) Red Blood Count 4.38 x10^6/uL (4.30-5.70) Hemoglobin 13.2 g/dL (13.0-17.5) Hematocrit 38.8 % (39.0-53.0) Mean Corpuscular Volume 89 fL (79-100) Mean Corpuscular Hemoglobin 30 pg (25-35) Mean Corpuscular Hemoglobin Concent 34 g/dL (31-37) Red Cell Distribution Width 14.4 % (11.5-14.5) Platelet Count 231 x10^3/uL (140-400) Neutrophils (%) (Auto) 64 % (31-73) Lymphocytes (%) (Auto) 18 % (24-48) Monocytes (%) (Auto) 10 % (0-9) Eosinophils (%) (Auto) 7 % (0-3) Basophils (%) (Auto) 1 % (0-3) Neutrophils # (Auto) 7.4 x10^3/uL (1.8-7.7) Lymphocytes # (Auto) 2.1 x10^3/uL (1.0-4.8) Monocytes # (Auto) 1.1 x10^3/uL (0.0-1.1) Eosinophils # (Auto) 0.8 x10^3/uL (0.0-0.7) Basophils # (Auto) 0.1 x10^3/uL (0.0-0.2) Sodium Level 139 mmol/L (136-145) Potassium Level 3.8 mmol/L (3.5-5.1) Chloride Level 103 mmol/L (98-107) Carbon Dioxide Level 26 mmol/L (21-32) Anion Gap 10 (6-14) Blood Urea Nitrogen 15 mg/dL (8-26) Creatinine 1.1 mg/dL (0.7-1.3) Estimated GFR (Cockcroft-Gault) 65.8 Glucose Level 115 mg/dL (70-99) Calcium Level 8.6 mg/dL (8.5-10.1) Comment Review of Relevant I have reviewed the following items ben (where applicable) has been applied. Labs Laboratory Tests Test 03/13/19 04:15 03/13/19 13:30 03/14/19 04:50 White Blood Count 9.9 x10^3/uL (4.0-11.0) 11.5 x10^3/uL (4.0-11.0) Red Blood Count 4.53 x10^6/uL (4.30-5.70) 4.38 x10^6/uL (4.30-5.70) Hemoglobin 13.8 g/dL (13.0-17.5) 13.2 g/dL (13.0-17.5) Hematocrit 40.1 % (39.0-53.0) 38.8 % (39.0-53.0) Mean Corpuscular Volume 89 fL (79-100) 89 fL (79-100) Mean Corpuscular Hemoglobin 31 pg (25-35) 30 pg (25-35) Mean Corpuscular Hemoglobin Concent 35 g/dL (31-37) 34 g/dL (31-37) Red Cell Distribution Width 14.5 % (11.5-14.5) 14.4 % (11.5-14.5) Platelet Count 226 x10^3/uL (140-400) 231 x10^3/uL (140-400) Neutrophils (%) (Auto) 64 % (31-73) 64 % (31-73) Lymphocytes (%) (Auto) 17 % (24-48) 18 % (24-48) Monocytes (%) (Auto) 10 % (0-9) 10 % (0-9) Eosinophils (%) (Auto) 7 % (0-3) 7 % (0-3) Basophils (%) (Auto) 2 % (0-3) 1 % (0-3) Neutrophils # (Auto) 6.3 x10^3/uL (1.8-7.7) 7.4 x10^3/uL (1.8-7.7) Lymphocytes # (Auto) 1.7 x10^3/uL (1.0-4.8) 2.1 x10^3/uL (1.0-4.8) Monocytes # (Auto) 1.0 x10^3/uL (0.0-1.1) 1.1 x10^3/uL (0.0-1.1) Eosinophils # (Auto) 0.7 x10^3/uL (0.0-0.7) 0.8 x10^3/uL (0.0-0.7) Basophils # (Auto) 0.2 x10^3/uL (0.0-0.2) 0.1 x10^3/uL (0.0-0.2) Sodium Level 139 mmol/L (136-145) 139 mmol/L (136-145) Potassium Level 3.6 mmol/L (3.5-5.1) 3.8 mmol/L (3.5-5.1) Chloride Level 104 mmol/L (98-107) 103 mmol/L (98-107) Carbon Dioxide Level 27 mmol/L (21-32) 26 mmol/L (21-32) Anion Gap 8 (6-14) 10 (6-14) Blood Urea Nitrogen 18 mg/dL (8-26) 15 mg/dL (8-26) Creatinine 1.1 mg/dL (0.7-1.3) 1.1 mg/dL (0.7-1.3) Estimated GFR (Cockcroft-Gault) 65.8 65.8 BUN/Creatinine Ratio 16 (6-20) Glucose Level 111 mg/dL (70-99) 115 mg/dL (70-99) Calcium Level 8.8 mg/dL (8.5-10.1) 8.6 mg/dL (8.5-10.1) Total Bilirubin 0.7 mg/dL (0.2-1.0) Aspartate Amino Transf (AST/SGOT) 16 U/L (15-37) Alanine Aminotransferase (ALT/SGPT) 21 U/L (16-63) Alkaline Phosphatase 137 U/L (46-116) Total Protein 6.7 g/dL (6.4-8.2) Albumin 3.0 g/dL (3.4-5.0) Albumin/Globulin Ratio 0.8 (1.0-1.7) Vancomycin Level Trough 15.6 mcg/mL (10.0-20.0) Vancomycin Last Dose Date 03/13/19 Vancomycin Last Dose Time 99 Laboratory Tests Test 03/13/19 13:30 03/14/19 04:50 Vancomycin Level Trough 15.6 mcg/mL (10.0-20.0) Vancomycin Last Dose Date 03/13/19 Vancomycin Last Dose Time 0100 White Blood Count 11.5 x10^3/uL (4.0-11.0) Red Blood Count 4.38 x10^6/uL (4.30-5.70) Hemoglobin 13.2 g/dL (13.0-17.5) Hematocrit 38.8 % (39.0-53.0) Mean Corpuscular Volume 89 fL (79-100) Mean Corpuscular Hemoglobin 30 pg (25-35) Mean Corpuscular Hemoglobin Concent 34 g/dL (31-37) Red Cell Distribution Width 14.4 % (11.5-14.5) Platelet Count 231 x10^3/uL (140-400) Neutrophils (%) (Auto) 64 % (31-73) Lymphocytes (%) (Auto) 18 % (24-48) Monocytes (%) (Auto) 10 % (0-9) Eosinophils (%) (Auto) 7 % (0-3) Basophils (%) (Auto) 1 % (0-3) Neutrophils # (Auto) 7.4 x10^3/uL (1.8-7.7) Lymphocytes # (Auto) 2.1 x10^3/uL (1.0-4.8) Monocytes # (Auto) 1.1 x10^3/uL (0.0-1.1) Eosinophils # (Auto) 0.8 x10^3/uL (0.0-0.7) Basophils # (Auto) 0.1 x10^3/uL (0.0-0.2) Sodium Level 139 mmol/L (136-145) Potassium Level 3.8 mmol/L (3.5-5.1) Chloride Level 103 mmol/L (98-107) Carbon Dioxide Level 26 mmol/L (21-32) Anion Gap 10 (6-14) Blood Urea Nitrogen 15 mg/dL (8-26) Creatinine 1.1 mg/dL (0.7-1.3) Estimated GFR (Cockcroft-Gault) 65.8 Glucose Level 115 mg/dL (70-99) Calcium Level 8.6 mg/dL (8.5-10.1) Medications Current Medications Vancomycin HCl 250 ml @ 250 mls/hr 1X ONCE IV ; Start 03/12/19 at 00:45; Stop 03/12/19 at 01:44; Status UNV Morphine Sulfate (Morphine Sulfate) 4 mg 1X ONCE IV Last administered on at 00:58; Start 03/12/19 at 01:00; Stop 03/12/19 at 01:01; Status DC Vancomycin HCl (Vanco Per Pharmacy) 1 each PRN DAILY PRN MC SEE COMMENTS Last administered on 03/13/19at 15:29; Start 03/12/19 at 00:45 Vancomycin HCl 2 gm/Sodium Chloride 500 ml @ 250 mls/hr 1X ONCE IV Last administered on 03/12/19at 01:00; Start 03/12/19 at 01:00; Stop 03/12/19 at 02:59; Status DC Ondansetron HCl (Zofran) 4 mg PRN Q8HRS PRN IV NAUSEA/VOMITING 1ST CHOICE; Start 03/12/19 at 01:30; Stop 03/13/19 at 01:29; Status DC Morphine Sulfate (Morphine Sulfate) 4 mg PRN Q6HRS PRN IV SEVERE PAIN 7-10 Last administered on 03/12/19 22:21; Start 03/12/19 at 01:30 Potassium Chloride (Klor-Con) 40 meq 1X ONCE PO Last administered on 03/12/19 03:06; Start 03/12/19 at 02:00; Stop 03/12/19 at 02:01; Status DC Vancomycin HCl 1.25 gm/Sodium Chloride 250 ml @ 167 mls/hr Q12H IV Last administered on 03/14/19 08:30; Start 03/12/19 at 13:00 Vancomycin HCl (Vancomycin Trough Level) 1 each 1X ONCE MC Last administered on 03/13/19 13:38; Start 03/13/19 at 12:30; Stop 03/13/19 at 12:31; Status DC Acetaminophen/ Hydrocodone Bitart (Lortab 5/325) 1 tab PRN Q4HRS PRN PO PAIN MILD TO MOD Last administered on 03/12/19 20:21; Start 03/12/19 at 12:00 Lactobacillus Rhamnosus (Culturelle) 1 cap BID PO Last administered on 03/14/19 08:30; Start 03/12/19 at 21:00 Ascorbic Acid (Vitamin C) 500 mg DAILY PO Last administered on 03/14/19 08:30; Start 03/12/19 at 17:00 Multivitamins (Thera M Plus) 1 tab DAILY PO Last administered on 03/14/19 08:30; Start 03/12/19 at 17:00 Potassium Chloride (Klor-Con) 40 meq 1X ONCE PO Last administered on 03/12/19 14:41; Start 03/12/19 at 14:15; Stop 03/12/19 at 14:16; Status DC Potassium Chloride (Klor-Con) 20 meq DAILYWBKFT PO Last administered on 02/23 08:31; Start 03/13/19 at 08:00 Enoxaparin Sodium (Lovenox 40mg Syringe) 40 mg Q24H SQ Last administered on 03/13/19 17:20; Start 03/12/19 at 18:00 Metoprolol Tartrate (Lopressor) 50 mg BID PO Last administered on 03/14/19 08:30; Start 03/12/19 at 14:30 Temazepam (Restoril) 7.5 mg PRN QHS PRN PO INSOMNIA Last administered on 03/12/19 20:21; Start 03/12/19 at 19:45 Nicotine Polacrilex (Nicorette Gum) 1 each PRN Q1HR PRN BC SMOKING CESSATION Last administered on 03/12/19 20:34; Start 03/12/19 at 19:45 Nicotine (Nicoderm Cq 21mg) 1 patch PRN DAILY PRN TD SMOKING CESSATION Last administered on 03/14/19 08:31; Start 03/12/19 at 19:45 Calcium Carbonate/ Glycine (Tums) 500 mg PRN AFTMEALHC PRN PO INDIGESTION; Start 03/12/19 at 19:45 Magnesium Hydroxide (Milk Of Magnesia) 2,400 mg PRN DAILY PRN PO CONSTIPATION, 2ND CHOICE; Start 03/12/19 at 19:45 Polyethylene Glycol (miraLAX PACKET) 17 gm PRN DAILY PRN PO CONSTIPATION, 1ST CHOICE; Start 03/12/19 at 19:45 Oxycodone/ Acetaminophen (Percocet 5/325) 1 tab PRN Q6HRS PRN PO PAIN SEVERE; Start 03/13/19 at 08:00; Stop 03/13/19 at 08:00; Status DC Diphenhydramine HCl (Benadryl) 25 mg PRN Q12HR PRN PO ITCHING Last administered on 03/13/19 08:41; Start 03/13/19 at 08:00 Oxycodone/ Acetaminophen (Percocet 5/325) 1 tab PRN Q4HRS PRN PO PAIN SEVERE Last administered on 03/14/19 08:31; Start 03/13/19 at 08:00 Albuterol Sulfate (Ventolin Neb Soln) 2.5 mg PRN Q4HRS PRN NEB SHORTNESS OF BREATH Last administered on 7/20/19at 21:48; Start 03/13/19 at 16:45 Budesonide (Pulmicort) 0.5 mg RTBID NEB Last administered on 03/14/19at 07:54; Start 03/13/19 at 20:00 Albuterol Sulfate (Ventolin Neb Soln) 2.5 mg RTQID NEB ; Start 03/13/19 at 20:00; Stop 03/13/19 at 20:00; Status DC Active Scripts Active Reported Symbicort 80-4.5 Mcg Inhaler (Budesonide/Formoterol Fumarate) 10.2 Gm Hfa.aer.ad 2 Puff IH BID Percocet 5-325 Mg Tablet (Oxycodone/Acetaminophen) 1 Each Tablet 1 Tab PO PRN Q6HRS PRN Metoprolol Tartrate 50 Mg Tablet 1 Tab PO BID Vitals/I & O Vital Sign - Last 24 Hours 03/13/19 03/13/19 03/13/19 03/13/19 11:00 13:00 15:00 17:26 Temp 98.8 98.6 98.8 98.6 Pulse 84 83 Resp 16 18 B/P (MAP) 136/83 (100) 131/54 (79) Pulse Ox 90 94 96 O2 Delivery Room Air Room Air Room Air Room Air 03/13/19 03/13/19 03/13/19 03/13/19 19:00 19:10 19:35 21:10 Temp 99.5 99.5 Pulse 95 95 Resp 18 20 B/P (MAP) 170/79 (109) 170/79 Pulse Ox 94 O2 Delivery Room Air Room Air Room Air 03/13/19 03/13/19 03/14/19 03/14/19 21:52 23:00 01:51 02:51 Temp 98.6 98.6 Pulse 94 Resp 18 20 20 B/P (MAP) 142/85 (104) Pulse Ox 92 92 O2 Delivery Room Air Room Air Room Air Room Air 03/14/19 03/14/19 03/14/19 03/14/19 03:00 07:00 07:55 08:30 Temp 98.2 99.8 98.2 99.8 Pulse 45 105 105 Resp 18 22 B/P (MAP) 138/68 (91) 153/72 (99) 153/72 Pulse Ox 98 93 O2 Delivery Room Air Room Air Room Air 03/14/19 03/14/19 08:30 08:31 Resp 22 O2 Delivery Room Air Room Air Intake and Output 03/13/19 03/13/19 03/14/19 15:00 23:00 07:00 Intake Total 550 ml 360 ml Output Total 300 ml 200 ml Balance 550 ml 60 ml -200 ml LAUREL GLASS MD Mar 14, 2019 10:56
[2019-03-14 11:00] VITALS: BP_SYST 145; BP_SYST 56; BP_DIAS 72
--- NOTE | 2019-03-14 11:54 | PDOC ---
Infectious Disease Note Vital Sign Vital Signs Vital Signs Date Time Temp Pulse Resp B/P (MAP) Pulse Ox O2 Delivery O2 Flow Rate FiO2 03/14/19 08:31 22 Room Air 03/14/19 08:30 105 153/72 03/14/19 07:00 99.8 93 99.8 Labs Lab Laboratory Tests Test 03/13/19 13:30 03/14/19 04:50 Vancomycin Level Trough 15.6 mcg/mL (10.0-20.0) Vancomycin Last Dose Date 03/13/19 Vancomycin Last Dose Time 0100 White Blood Count 11.5 x10^3/uL (4.0-11.0) Red Blood Count 4.38 x10^6/uL (4.30-5.70) Hemoglobin 13.2 g/dL (13.0-17.5) Hematocrit 38.8 % (39.0-53.0) Mean Corpuscular Volume 89 fL (79-100) Mean Corpuscular Hemoglobin 30 pg (25-35) Mean Corpuscular Hemoglobin Concent 34 g/dL (31-37) Red Cell Distribution Width 14.4 % (11.5-14.5) Platelet Count 231 x10^3/uL (140-400) Neutrophils (%) (Auto) 64 % (31-73) Lymphocytes (%) (Auto) 18 % (24-48) Monocytes (%) (Auto) 10 % (0-9) Eosinophils (%) (Auto) 7 % (0-3) Basophils (%) (Auto) 1 % (0-3) Neutrophils # (Auto) 7.4 x10^3/uL (1.8-7.7) Lymphocytes # (Auto) 2.1 x10^3/uL (1.0-4.8) Monocytes # (Auto) 1.1 x10^3/uL (0.0-1.1) Eosinophils # (Auto) 0.8 x10^3/uL (0.0-0.7) Basophils # (Auto) 0.1 x10^3/uL (0.0-0.2) Sodium Level 139 mmol/L (136-145) Potassium Level 3.8 mmol/L (3.5-5.1) Chloride Level 103 mmol/L (98-107) Carbon Dioxide Level 26 mmol/L (21-32) Anion Gap 10 (6-14) Blood Urea Nitrogen 15 mg/dL (8-26) Creatinine 1.1 mg/dL (0.7-1.3) Estimated GFR (Cockcroft-Gault) 65.8 Glucose Level 115 mg/dL (70-99) Calcium Level 8.6 mg/dL (8.5-10.1) Objective Assessment Chronic ulceration with secondary infection of posterior left lower leg Leukocytosis Chills OA HTN CAD Plan Plan of Care Obtain an culture of the drainage from the wound. Continue vancomycin and add Zosyn for gram neg and anaerobic coverage BC Monitor WBC count and renal function closely Local wound care Pain management per primary D/w nursing Thank you [id number] Pt seen and examined chart reviewed case discussed agree with above A/P LYLE GAO APRN Mar 14, 2019 11:54 SIMBA BURNHAM MD Mar 14, 2019 15:17
[2019-03-14] MEDS: PIPERACILLIN/TAZOBACTAM 3.375 GM in IV NORMAL SALINE 50ML 50 ML IV SCH ×2 (12:01→17:38)
--- NOTE | 2019-03-14 12:39 | CONS ---
DATE OF CONSULTATION: 03/14/2019 Vladimir Ordoñez, nurse practitioner dictating for Dr. Regine Burnham, Infectious Disease. REFERRING PHYSICIAN: Dr. Morales. REASON FOR CONSULTATION: Leg cellulitis. HISTORY OF PRESENT ILLNESS: This patient is a 73-year-old male, who says he developed some skin breakdown from scratching himself on the posterior aspect of his left lower leg about 5 months ago. The area has failed to heal and has increased in size. He complains of persistent burning type pain, drainage and swelling. He was evaluated at the [place]. He was treated with oral antibiotics once. The patient says he did not see any improvement. He has now been admitted and is currently on vancomycin. A venous ultrasound showed no evidence of DVT. He says he has been having some chills off and on. Denies fevers or body aches. PAST MEDICAL HISTORY: Hypertension, osteoarthritis, myocardial infarction, PTSD, coronary artery disease, hyperlipidemia, hypothyroidism. PAST SURGICAL HISTORY: Coronary stent, tonsillectomy, appendectomy. SOCIAL HISTORY: The patient lives at home alone. He is an [employer] . He spent time in [place] and was exposed to Agent Goeh[place]. He vapes. FAMILY HISTORY: Obesity, hyperlipidemia. ALLERGIES: No known drug allergies. MEDICATIONS: Vancomycin. Other medications are available and have been reviewed on the [facility]. REVIEW OF SYSTEMS: Per HPI, otherwise all other review of systems are negative. PHYSICAL EXAMINATION: VITAL SIGNS: Temperature 99.8, blood pressure 153/72, heart rate 105, respiratory rate 22, pulse oximetry is 93% on room air. BMI 31. GENERAL: The patient is lying in bed, alert, no apparent distress. HEENT: Pupils equally round and reactive. Oropharynx pink and moist. Edentulous. NECK: Supple. LUNGS: Clear to auscultation. HEART: S1, S2. ABDOMEN: Obese, soft, nontender with bowel sounds present. EXTREMITIES: 1+ edema, left lower extremity with a fairly large area of ulceration, drainage on the posterior aspect. He has multiple dry scabs on both legs. SKIN: Warm to touch. NEUROLOGIC: Alert and oriented x 3. LABORATORY DATA: Today's WBC 11.5 from 9.9, hemoglobin 13.2, platelets 231,000. Electrolytes are unremarkable. Creatinine 1.1, BUN 15, glucose 150, total bilirubin 0.7, AST 16, ALT 21, albumin 3.0. Vancomycin trough 15.6. Venous Doppler ultrasound showed no evidence of DVT. IMPRESSION: 1. Chronic ulceration with secondary infection of posterior left lower leg. 2. Leukocytosis. 3. Chills. 4. Osteoarthritis. 5. Hypertension. 6. Coronary artery disease. PLAN: Obtain a culture of the drainage from the wound. Continue vancomycin and add Zosyn for gram-negative and anaerobic coverage. Monitor WBC count and renal function closely. Local wound care, pain management per primary. Also, we will obtain a set of blood cultures. Discussed with Nursing. Thank you, Dr. Morales for asking us to participate in this patient's care. Should you have further questions or concerns, please call. REGINE BURNHAM MD DR: BRETT/cornell JOB#: [id number] / [id number] CONRAD
[2019-03-14] MEDS: MORPHINE SULFATE 4 MG/ML VIAL. IV PRN (12:54)
[2019-03-14] MEDS: VANCOMYCIN PER PHARMACY MC PRN (13:56)
[2019-03-14 15:00] VITALS: BP 124/52
[2019-03-14] MEDS: ENOXAPARIN 40 MG/0.4 ML SYRINGE. SQ SCH (17:38)
[2019-03-14 19:00] VITALS: BP 137/52
[2019-03-14 23:00] VITALS: BP 146/60
[2019-03-15] MEDS: PIPERACILLIN/TAZOBACTAM 3.375 GM in IV NORMAL SALINE 50ML 50 ML IV SCH ×5 (00:01→23:41)
[2019-03-15 03:00] VITALS: BP 148/75
[2019-03-15 07:00] VITALS: BP 143/83
[2019-03-15 07:08] LABS: BASO # 0.1 x10^3/uL (0.0-0.2); BASO % 1 % (0-3); EOS # 0.9 x10^3/uL (0.0-0.7); EOS % 9 % (0-3); HEMOGLOBIN 13.3 g/dL (13.0-17.5); LYMPH # 1.4 x10^3/uL (1.0-4.8); LYMPH % 13 % (24-48); MEAN CORPUSCULAR HEMOGLOBIN 30 pg (25-35); MEAN CORPUSCULAR HGB CONC 34 g/dL (31-37); MEAN CORPUSCULAR VOLUME 88 fL (79-100); MONO % 9 % (0-9); NEUT # 6.9 x10^3/uL (1.8-7.7); NEUT % 67 % (31-73); PLATELET COUNT 241 x10^3/uL (140-400); RED BLOOD COUNT 4.42 x10^6/uL (4.30-5.70); RED CELL DISTRIBUTION WIDTH 14.2 % (11.5-14.5); WHITE BLOOD COUNT 10.3 x10^3/uL (4.0-11.0)
[2019-03-15 07:17] LABS: CALCIUM 8.4 mg/dL (8.5-10.1); CREATININE 1.1 mg/dL (0.7-1.3); GFR 65.8; POTASSIUM 3.5 mmol/L (3.5-5.1)
[2019-03-15] MEDS: BUDESONIDE 0.5 MG/2 ML NEBU. NEB SCH ×2 (07:46→20:00)
[2019-03-15] MEDS: VANCOMYCIN 1.25 GM in IV NORMAL SALINE 250ML 250 ML IV SCH ×2 (08:13→20:12)
[2019-03-15] MEDS: LACTOBACILLUS RHAMNOSUS GG 1 CAPSULE. PO SCH ×2 (08:23→20:04)
[2019-03-15] MEDS: ASCORBIC ACID 500 MG TABLET PO SCH (08:23)
[2019-03-15] MEDS: MULTIVITAMIN with MINERAL TABLET. PO SCH (08:23)
[2019-03-15] MEDS: POTASSIUM CHLORIDE 20 MEQ TABLET.ER. PO SCH (08:23)
[2019-03-15] MEDS: METOPROLOL TART IMMED RELEASE 50 MG TABLET. PO SCH ×2 (08:23→20:05)
[2019-03-15] MEDS: oxyCODONE/APAP 5/325 1 TAB TABLET PO PRN ×3 (08:25→22:31)
--- NOTE | 2019-03-15 08:28 | PDOC ---
PROGRESS NOTES Chief Complaint Chief Complaint Assessment/Plan Cellulitis of left lower extremity obesity hypokalemia hypertension History of Present Illness History of Present Illness Admitted with LLE cellulitis and ulcer on posterior leg pt says has some nausea tolerating po intake well Leg pain continues but improving slowly He is asking when his left hip can be replaced. He is amenable to rehab. Culture still pending. replace k po am labs dvt prophylaxis, sq lovenox iv pain control ID following wound cultured 28 min pt exam, chart review, > 50% of time spent with exam, chart review, pt care coordination Vitals Vitals Vital Signs Date Time Temp Pulse Resp B/P (MAP) Pulse Ox O2 Delivery O2 Flow Rate FiO2 03/15/19 07:00 98.8 84 22 143/83 (103) 98 Room Air 98.8 Physical Exam General: Alert, Oriented X3, Cooperative, No acute distress Heart: Regular rate, Normal S1 Lungs: Clear Abdomen: Normal bowel sounds, Soft, No tenderness Extremities: No clubbing, No cyanosis Skin: Other (see wound pictures) Labs LABS Laboratory Tests Test 03/15/19 06:10 White Blood Count 10.3 x10^3/uL (4.0-11.0) Red Blood Count 4.42 x10^6/uL (4.30-5.70) Hemoglobin 13.3 g/dL (13.0-17.5) Hematocrit 39.0 % (39.0-53.0) Mean Corpuscular Volume 88 fL (79-100) Mean Corpuscular Hemoglobin 30 pg (25-35) Mean Corpuscular Hemoglobin Concent 34 g/dL (31-37) Red Cell Distribution Width 14.2 % (11.5-14.5) Platelet Count 241 x10^3/uL (140-400) Neutrophils (%) (Auto) 67 % (31-73) Lymphocytes (%) (Auto) 13 % (24-48) Monocytes (%) (Auto) 9 % (0-9) Eosinophils (%) (Auto) 9 % (0-3) Basophils (%) (Auto) 1 % (0-3) Neutrophils # (Auto) 6.9 x10^3/uL (1.8-7.7) Lymphocytes # (Auto) 1.4 x10^3/uL (1.0-4.8) Monocytes # (Auto) 1.0 x10^3/uL (0.0-1.1) Eosinophils # (Auto) 0.9 x10^3/uL (0.0-0.7) Basophils # (Auto) 0.1 x10^3/uL (0.0-0.2) Sodium Level 139 mmol/L (136-145) Potassium Level 3.5 mmol/L (3.5-5.1) Chloride Level 104 mmol/L (98-107) Carbon Dioxide Level 26 mmol/L (21-32) Anion Gap 9 (6-14) Blood Urea Nitrogen 13 mg/dL (8-26) Creatinine 1.1 mg/dL (0.7-1.3) Estimated GFR (Cockcroft-Gault) 65.8 Glucose Level 116 mg/dL (70-99) Calcium Level 8.4 mg/dL (8.5-10.1) Comment Review of Relevant I have reviewed the following items ben (where applicable) has been applied. Labs Laboratory Tests Test 03/13/19 13:30 03/14/19 04:50 03/15/19 06:10 Vancomycin Level Trough 15.6 mcg/mL (10.0-20.0) Vancomycin Last Dose Date 03/13/19 Vancomycin Last Dose Time 0100 White Blood Count 11.5 x10^3/uL (4.0-11.0) 10.3 x10^3/uL (4.0-11.0) Red Blood Count 4.38 x10^6/uL (4.30-5.70) 4.42 x10^6/uL (4.30-5.70) Hemoglobin 13.2 g/dL (13.0-17.5) 13.3 g/dL (13.0-17.5) Hematocrit 38.8 % (39.0-53.0) 39.0 % (39.0-53.0) Mean Corpuscular Volume 89 fL (79-100) 88 fL (79-100) Mean Corpuscular Hemoglobin 30 pg (25-35) 30 pg (25-35) Mean Corpuscular Hemoglobin Concent 34 g/dL (31-37) 34 g/dL (31-37) Red Cell Distribution Width 14.4 % (11.5-14.5) 14.2 % (11.5-14.5) Platelet Count 231 x10^3/uL (140-400) 241 x10^3/uL (140-400) Neutrophils (%) (Auto) 64 % (31-73) 67 % (31-73) Lymphocytes (%) (Auto) 18 % (24-48) 13 % (24-48) Monocytes (%) (Auto) 10 % (0-9) 9 % (0-9) Eosinophils (%) (Auto) 7 % (0-3) 9 % (0-3) Basophils (%) (Auto) 1 % (0-3) 1 % (0-3) Neutrophils # (Auto) 7.4 x10^3/uL (1.8-7.7) 6.9 x10^3/uL (1.8-7.7) Lymphocytes # (Auto) 2.1 x10^3/uL (1.0-4.8) 1.4 x10^3/uL (1.0-4.8) Monocytes # (Auto) 1.1 x10^3/uL (0.0-1.1) 1.0 x10^3/uL (0.0-1.1) Eosinophils # (Auto) 0.8 x10^3/uL (0.0-0.7) 0.9 x10^3/uL (0.0-0.7) Basophils # (Auto) 0.1 x10^3/uL (0.0-0.2) 0.1 x10^3/uL (0.0-0.2) Sodium Level 139 mmol/L (136-145) 139 mmol/L (136-145) Potassium Level 3.8 mmol/L (3.5-5.1) 3.5 mmol/L (3.5-5.1) Chloride Level 103 mmol/L (98-107) 104 mmol/L (98-107) Carbon Dioxide Level 26 mmol/L (21-32) 26 mmol/L (21-32) Anion Gap 10 (6-14) 9 (6-14) Blood Urea Nitrogen 15 mg/dL (8-26) 13 mg/dL (8-26) Creatinine 1.1 mg/dL (0.7-1.3) 1.1 mg/dL (0.7-1.3) Estimated GFR (Cockcroft-Gault) 65.8 65.8 Glucose Level 115 mg/dL (70-99) 116 mg/dL (70-99) Calcium Level 8.6 mg/dL (8.5-10.1) 8.4 mg/dL (8.5-10.1) Laboratory Tests Test 03/15/19 06:10 White Blood Count 10.3 x10^3/uL (4.0-11.0) Red Blood Count 4.42 x10^6/uL (4.30-5.70) Hemoglobin 13.3 g/dL (13.0-17.5) Hematocrit 39.0 % (39.0-53.0) Mean Corpuscular Volume 88 fL (79-100) Mean Corpuscular Hemoglobin 30 pg (25-35) Mean Corpuscular Hemoglobin Concent 34 g/dL (31-37) Red Cell Distribution Width 14.2 % (11.5-14.5) Platelet Count 241 x10^3/uL (140-400) Neutrophils (%) (Auto) 67 % (31-73) Lymphocytes (%) (Auto) 13 % (24-48) Monocytes (%) (Auto) 9 % (0-9) Eosinophils (%) (Auto) 9 % (0-3) Basophils (%) (Auto) 1 % (0-3) Neutrophils # (Auto) 6.9 x10^3/uL (1.8-7.7) Lymphocytes # (Auto) 1.4 x10^3/uL (1.0-4.8) Monocytes # (Auto) 1.0 x10^3/uL (0.0-1.1) Eosinophils # (Auto) 0.9 x10^3/uL (0.0-0.7) Basophils # (Auto) 0.1 x10^3/uL (0.0-0.2) Sodium Level 139 mmol/L (136-145) Potassium Level 3.5 mmol/L (3.5-5.1) Chloride Level 104 mmol/L (98-107) Carbon Dioxide Level 26 mmol/L (21-32) Anion Gap 9 (6-14) Blood Urea Nitrogen 13 mg/dL (8-26) Creatinine 1.1 mg/dL (0.7-1.3) Estimated GFR (Cockcroft-Gault) 65.8 Glucose Level 116 mg/dL (70-99) Calcium Level 8.4 mg/dL (8.5-10.1) Medications Current Medications Vancomycin HCl 250 ml @ 250 mls/hr 1X ONCE IV ; Start 03/12/19 at 00:45; Stop 03/12/19 at 01:44; Status UNV Morphine Sulfate (Morphine Sulfate) 4 mg 1X ONCE IV Last administered on 03/12/19at 00:58; Start 03/12/19 at 01:00; Stop 03/12/19 at 01:01; Status DC Vancomycin HCl (Vanco Per Pharmacy) 1 each PRN DAILY PRN MC SEE COMMENTS Last administered on 03/14/19 13:56; Start 03/12/19 at 00:45 Vancomycin HCl 2 gm/Sodium Chloride 500 ml @ 250 mls/hr 1X ONCE IV Last administered on 03/12/19 01:00; Start 03/12/19 at 01:00; Stop 03/12/19 at 02:59; Status DC Ondansetron HCl (Zofran) 4 mg PRN Q8HRS PRN IV NAUSEA/VOMITING 1ST CHOICE; Start 03/12/19 at 01:30; Stop 03/13/19 at 01:29; Status DC Morphine Sulfate (Morphine Sulfate) 4 mg PRN Q6HRS PRN IV SEVERE PAIN 7-10 Last administered on 03/14/19at 12:54; Start 03/12/19 at 01:30 Potassium Chloride (Klor-Con) 40 meq 1X ONCE PO Last administered on 03/12/19at 03:06; Start 03/12/19 at 02:00; Stop 03/12/19 at 02:01; Status DC Vancomycin HCl 1.25 gm/Sodium Chloride 250 ml @ 167 mls/hr Q12H IV Last administered on 03/15/19 08:13; Start 03/12/19 at 13:00 Vancomycin HCl (Vancomycin Trough Level) 1 each 1X ONCE MC Last administered on 03/13/19at 13:38; Start 03/13/19 at 12:30; Stop 03/13/19 at 12:31; Status DC Acetaminophen/ Hydrocodone Bitart (Lortab 5/325) 1 tab PRN Q4HRS PRN PO PAIN MILD TO MOD Last administered on 03/12/19 20:21; Start 03/12/19 at 12:00 Lactobacillus Rhamnosus (Culturelle) 1 cap BID PO Last administered on 03/14/19 21:37; Start 03/12/19 at 21:00 Ascorbic Acid (Vitamin C) 500 mg DAILY PO Last administered on 03/14/19 08:30; Start 03/12/19 at 17:00 Multivitamins (Thera M Plus) 1 tab DAILY PO Last administered on 03/14/19 08:30; Start 03/12/19 at 17:00 Potassium Chloride (Klor-Con) 40 meq 1X ONCE PO Last administered on 03/12/19 14:41; Start 03/12/19 at 14:15; Stop 03/12/19 at 14:16; Status DC Potassium Chloride (Klor-Con) 20 meq [id number] PO Last administered on 03/14/19 08:31; Start 03/13/19 at 08:00 Enoxaparin Sodium (Lovenox 40mg Syringe) 40 mg Q24H SQ Last administered on 03/14/19 17:38; Start 03/12/19 at 18:00 Metoprolol Tartrate (Lopressor) 50 mg BID PO Last administered on 03/14/19 21:38; Start 03/12/19 at 14:30 Temazepam (Restoril) 7.5 mg PRN QHS PRN PO INSOMNIA Last administered on 03/12/19 20:21; Start 03/12/19 at 19:45 Nicotine Polacrilex (Nicorette Gum) 1 each PRN Q1HR PRN BC SMOKING CESSATION Last administered on 03/12/19 20:34; Start 03/12/19 at 19:45 Nicotine (Nicoderm Cq 21mg) 1 patch PRN DAILY PRN TD SMOKING CESSATION Last administered on 03/14/19 08:31; Start 03/12/19 at 19:45 Calcium Carbonate/ Glycine (Tums) 500 mg PRN AFTMEALHC PRN PO INDIGESTION; Start 03/12/19 at 19:45 Magnesium Hydroxide (Milk Of Magnesia) 2,400 mg PRN DAILY PRN PO CONSTIPATION, 2ND CHOICE; Start 03/12/19 at 19:45 Polyethylene Glycol (miraLAX PACKET) 17 gm PRN DAILY PRN PO CONSTIPATION, 1ST CHOICE; Start 03/12/19 at 19:45 Oxycodone/ Acetaminophen (Percocet 5/325) 1 tab PRN Q6HRS PRN PO PAIN SEVERE; Start 03/13/19 at 08:00; Stop 03/13/19 at 08:00; Status DC Diphenhydramine HCl (Benadryl) 25 mg PRN Q12HR PRN PO ITCHING Last administered on 03/13/19at 08:41; Start 03/13/19 at 08:00 Oxycodone/ Acetaminophen (Percocet 5/325) 1 tab PRN Q4HRS PRN PO PAIN SEVERE Last administered on 03/14/19at 21:47; Start 03/13/19 at 08:00 Albuterol Sulfate (Ventolin Neb Soln) 2.5 mg PRN Q4HRS PRN NEB SHORTNESS OF BREATH Last administered on 03/13/19at 21:48; Start 03/13/19 at 16:45 Budesonide (Pulmicort) 0.5 mg RTBID NEB Last administered on 03/14/19at 20:19; Start 03/13/19 at 20:00 Albuterol Sulfate (Ventolin Neb Soln) 2.5 mg RTQID NEB ; Start 03/13/19 at 20:00; Stop 03/13/19 at 20:00; Status DC Piperacillin Sod/ Tazobactam Sod 3.375 gm/Sodium Chloride 50 ml @ 100 mls/hr Q6HRS IV Last administered on 03/15/19at 05:59; Start 03/14/19 at 12:00 Active Scripts Active Reported Symbicort 80-4.5 Mcg Inhaler (Budesonide/Formoterol Fumarate) 10.2 Gm Hfa.aer.ad 2 Puff IH BID Percocet 5-325 Mg Tablet (Oxycodone/Acetaminophen) 1 Each Tablet 1 Tab PO PRN Q6HRS PRN Metoprolol Tartrate 50 Mg Tablet 1 Tab PO BID Vitals/I & O Vital Sign - Last 24 Hours 03/14/19 03/14/19 03/14/19 03/14/19 08:30 08:30 08:31 11:00 Temp 98.4 98.4 Pulse 105 90 Resp 22 22 B/P (MAP) 153/72 145/72 (96) Pulse Ox 95 O2 Delivery Room Air Room Air Room Air 03/14/19 03/14/19 03/14/19 03/14/19 12:54 15:00 17:38 19:00 Temp 99.2 98.5 99.2 98.5 Pulse 85 62 Resp 20 22 22 B/P (MAP) 124/52 (76) 137/52 (80) Pulse Ox 94 94 O2 Delivery Room Air Room Air Room Air Room Air 03/14/19 03/14/19 03/14/19 03/14/19 20:00 20:20 21:38 21:47 Pulse 62 Resp 20 B/P (MAP) 137/52 Pulse Ox 93 O2 Delivery Room Air Room Air Room Air 03/14/19 03/14/19 03/15/19 03/15/19 22:47 23:00 03:00 07:00 Temp 98.4 98.3 98.8 98.4 98.3 98.8 Pulse 85 84 84 Resp B/P (MAP) 146/60 (88) 148/75 (99) 143/83 (103) Pulse Ox 91 96 98 O2 Delivery Room Air Room Air Room Air Room Air Intake and Output 03/14/19 03/14/19 03/15/19 15:00 23:00 07:00 Intake Total 320 ml 120 ml Output Total 400 ml 600 ml 200 ml Balance -80 ml -480 ml -200 ml SHANI HALE MD Mar 15, 2019 08:28
[2019-03-15] MEDS ORDERED: POTASSIUM CHLORIDE 20 MEQ TABLET.ER. PO ONE (08:30)
[2019-03-15] MEDS: VANCOMYCIN PER PHARMACY MC PRN (10:25)
[2019-03-15 11:00] VITALS: BP 113/52
--- NOTE | 2019-03-15 11:04 | NUR ---
SS following up with discharge planning. PT/OT recommending longterm unit at discharge. SS met with pt to discuss longterm unit and discharge planning. Pt agreeable to longterm unit and requested referral be phoned and faxed to [facility], ; fax [phone]. paraplanner, Ana Rosa Gray, phoning and faxing referral to [facility]. SS will await acceptance decision and will proceed accordingly.
--- NOTE | 2019-03-15 11:44 | PDOC ---
Infectious Disease Note Subjective: Subjective pt says has some nausea tolerating po intake well eating lunch Leg pain continues but improving slowly ROS: ROS Negative except for above. Vital Signs: Vital Signs Vital Signs Date Time Temp Pulse Resp B/P (MAP) Pulse Ox O2 Delivery O2 Flow Rate FiO2 03/15/19 11:00 97.7 71 22 113/52 (72) 97 Room Air 97.7 Physical Exam: PHYSICAL EXAM GENERAL: Pt is aox3 , lying in bed, alert, no apparent distress. HEENT: Pupils equally round and reactive. Oropharynx pink and moist. Edentulous. NECK: Supple. LUNGS: Clear to auscultation. HEART: S1, S2. ABDOMEN: Obese, soft, nontender with bowel sounds present. EXTREMITIES: 1+ edema, left lower extremity with a fairly large area of ulceration, drainage on the posterior aspect. He has multiple dry scabs on both legs. SKIN: Warm to touch. NEUROLOGIC: Alert and oriented x 3. Medications: Inpatient Meds: Current Medications Medications (Trade) Dose Ordered Sig/Marcio Start Time Stop Time Status Last Admin Dose Admin Acetaminophen/ Hydrocodone Bitart (Lortab 5/325) 1 tab PRN Q4HRS PRN 03/12/19 12:00 03/12/19 20:21 1 TAB Albuterol Sulfate (Ventolin Neb Soln) 2.5 mg RTQID 03/13/19 20:00 03/13/19 20:00 DC Ascorbic Acid (Vitamin C) 500 mg DAILY 03/12/19 17:00 03/15/19 08:23 500 MG Budesonide (Pulmicort) 0.5 mg RTBID 03/13/19 20:00 03/14/19 20:19 0.5 MG Calcium Carbonate/ Glycine (Tums) 500 mg PRN AFTMEALHC PRN 03/12/19 19:45 Diphenhydramine HCl (Benadryl) 25 mg PRN Q12HR PRN 03/13/19 08:00 03/13/19 08:41 25 MG Enoxaparin Sodium (Lovenox 40mg Syringe) 40 mg Q24H 03/12/19 18:00 03/14/19 17:38 40 MG Lactobacillus Rhamnosus (Culturelle) 1 cap BID 03/12/19 21:00 03/15/19 08:23 1 CAP Magnesium Hydroxide (Milk Of Magnesia) 2,400 mg PRN DAILY PRN 03/12/19 19:45 Metoprolol Tartrate (Lopressor) 50 mg BID 03/12/19 14:30 03/15/19 08:23 50 MG Morphine Sulfate (Morphine Sulfate) 4 mg PRN Q6HRS PRN 03/12/19 01:30 03/14/19 12:54 4 MG Multivitamins (Thera M Plus) 1 tab DAILY 03/12/19 17:00 03/15/19 08:23 1 TAB Nicotine (Nicoderm Cq 21mg) 1 patch PRN DAILY PRN 03/12/19 19:45 03/14/19 08:31 1 PATCH Nicotine Polacrilex (Nicorette Gum) 1 each PRN Q1HR PRN 03/12/19 19:45 03/12/19 20:34 1 EACH Ondansetron HCl (Zofran) 4 mg PRN Q8HRS PRN 03/12/19 01:30 03/13/19 01:29 DC Oxycodone/ Acetaminophen (Percocet 5/325) 1 tab PRN Q4HRS PRN 03/13/19 08:00 03/15/19 08:25 1 TAB Piperacillin Sod/ Tazobactam Sod 3.375 gm/Sodium Chloride 50 ml @ 100 mls/hr Q6HRS 03/14/19 12:00 03/15/19 11:38 100 MLS/HR Polyethylene Glycol (miraLAX PACKET) 17 gm PRN DAILY PRN 03/12/19 19:45 Potassium Chloride (Klor-Con) 20 meq 1X ONCE 03/15/19 08:30 03/15/19 08:31 DC 03/15/19 08:46 20 MEQ Temazepam (Restoril) 7.5 mg PRN QHS PRN 03/12/19 19:45 03/12/19 20:21 7.5 MG Vancomycin HCl (Vanco Per Pharmacy) 1 each PRN DAILY PRN 03/12/19 00:45 03/15/19 10:25 1 EACH Vancomycin HCl (Vancomycin Trough Level) 1 each 1X ONCE 03/13/19 12:30 03/13/19 12:31 DC 03/13/19 13:38 1 EACH Vancomycin HCl 1.25 gm/Sodium Chloride 250 ml @ 167 mls/hr Q12H 03/12/19 13:00 03/15/19 08:13 167 MLS/HR Vancomycin HCl 2 gm/Sodium Chloride 500 ml @ 250 mls/hr 1X ONCE 03/12/19 01:00 03/12/19 02:59 DC 03/12/19 01:00 250 MLS/HR Labs: Lab Laboratory Tests Test 03/15/19 06:10 White Blood Count 10.3 x10^3/uL (4.0-11.0) Red Blood Count 4.42 x10^6/uL (4.30-5.70) Hemoglobin 13.3 g/dL (13.0-17.5) Hematocrit 39.0 % (39.0-53.0) Mean Corpuscular Volume 88 fL (79-100) Mean Corpuscular Hemoglobin 30 pg (25-35) Mean Corpuscular Hemoglobin Concent 34 g/dL (31-37) Red Cell Distribution Width 14.2 % (11.5-14.5) Platelet Count 241 x10^3/uL (140-400) Neutrophils (%) (Auto) 67 % (31-73) Lymphocytes (%) (Auto) 13 % (24-48) Monocytes (%) (Auto) 9 % (0-9) Eosinophils (%) (Auto) 9 % (0-3) Basophils (%) (Auto) 1 % (0-3) Neutrophils # (Auto) 6.9 x10^3/uL (1.8-7.7) Lymphocytes # (Auto) 1.4 x10^3/uL (1.0-4.8) Monocytes # (Auto) 1.0 x10^3/uL (0.0-1.1) Eosinophils # (Auto) 0.9 x10^3/uL (0.0-0.7) Basophils # (Auto) 0.1 x10^3/uL (0.0-0.2) Sodium Level 139 mmol/L (136-145) Potassium Level 3.5 mmol/L (3.5-5.1) Chloride Level 104 mmol/L (98-107) Carbon Dioxide Level 26 mmol/L (21-32) Anion Gap 9 (6-14) Blood Urea Nitrogen 13 mg/dL (8-26) Creatinine 1.1 mg/dL (0.7-1.3) Estimated GFR (Cockcroft-Gault) 65.8 Glucose Level 116 mg/dL (70-99) Calcium Level 8.4 mg/dL (8.5-10.1) Objective: Assessment: 1. Chronic ulceration with secondary infection of posterior left lower leg. 2. Leukocytosis. 3. Chills. 4. Osteoarthritis. 5. Hypertension. 6. Coronary artery disease. Plan: Plan of Care Continue vancomycin and Zosyn monitor renal functions closely f/u cults and lab values, cults pending Local wound care Pain management per primary D/w nursing SIMBA BURNHAM MD Mar 15, 2019 11:44
[2019-03-15 15:00] VITALS: BP 147/68
[2019-03-15] MEDS: ENOXAPARIN 40 MG/0.4 ML SYRINGE. SQ SCH (17:02)
[2019-03-15] MEDS: MORPHINE SULFATE 4 MG/ML VIAL. IV PRN (18:26)
[2019-03-15 19:15] VITALS: BP 137/64
[2019-03-15] MEDS: diphenhydrAMINE HCL 25 MG CAPSULE PO PRN (20:04)
[2019-03-15] MEDS: HYDROcodone/APAP 5/325MG 1 TAB TABLET PO PRN (20:04)
[2019-03-15] MEDS ORDERED: DIPHENHYDRAMINE/ZINC ACETATE 2%/0.1% TOPICAL CREAM 28GM TUBE. TP PRN (22:00)
[2019-03-15 23:43] VITALS: BP 12/58
[2019-03-16 03:35] VITALS: BP 130/68
[2019-03-16] MEDS: PIPERACILLIN/TAZOBACTAM 3.375 GM in IV NORMAL SALINE 50ML 50 ML IV SCH (05:34)
[2019-03-16 07:00] VITALS: BP 132/67
[2019-03-16] MEDS: BUDESONIDE 0.5 MG/2 ML NEBU. NEB SCH (07:33)
--- NOTE | 2019-03-16 07:56 | PDOC ---
PROGRESS NOTES Chief Complaint Chief Complaint Assessment/Plan Cellulitis of left lower extremity obesity hypokalemia hypertension History of Present Illness History of Present Illness Admitted with LLE cellulitis and ulcer on posterior leg pt says has some nausea tolerating po intake well Leg pain continues but improving slowly He is asking when his left hip can be replaced. He is amenable to rehab. Culture negative thus far. He wishes to smoke at his SNF, advised he cannot go to [facility]. He is ready for discharge, on oral antibiotics. replace k po am labs dvt prophylaxis, sq lovenox iv pain control ID following wound cultured 28 min pt exam, chart review, > 50% of time spent with exam, chart review, pt care coordination Vitals Vitals Vital Signs Date Time Temp Pulse Resp B/P (MAP) Pulse Ox O2 Delivery O2 Flow Rate FiO2 03/16/19 03:35 98.2 79 20 130/68 (88) 97 Room Air 98.2 Physical Exam Physical Exam GENERAL: Pt is aox3 , lying in bed, alert, no apparent distress. HEENT: Pupils equally round and reactive. Oropharynx pink and moist. Edentulous. NECK: Supple. LUNGS: Clear to auscultation. HEART: S1, S2. ABDOMEN: Obese, soft, nontender with bowel sounds present. EXTREMITIES: 1+ edema, left lower extremity with a fairly large area of ulceration, drainage on the posterior aspect. He has multiple dry scabs on both legs. SKIN: Warm to touch. NEUROLOGIC: Alert and oriented x 3. General: Alert, Oriented X3, Cooperative, No acute distress Heart: Regular rate, Normal S1 Lungs: Clear Abdomen: Normal bowel sounds, Soft, No tenderness Extremities: No clubbing, No cyanosis Skin: Other (see wound pictures) Comment Review of Relevant I have reviewed the following items ben (where applicable) has been applied. Labs Laboratory Tests Test 03/15/19 06:10 White Blood Count 10.3 x10^3/uL (4.0-11.0) Red Blood Count 4.42 x10^6/uL (4.30-5.70) Hemoglobin 13.3 g/dL (13.0-17.5) Hematocrit 39.0 % (39.0-53.0) Mean Corpuscular Volume 88 fL (79-100) Mean Corpuscular Hemoglobin 30 pg (25-35) Mean Corpuscular Hemoglobin Concent 34 g/dL (31-37) Red Cell Distribution Width 14.2 % (11.5-14.5) Platelet Count 241 x10^3/uL (140-400) Neutrophils (%) (Auto) 67 % (31-73) Lymphocytes (%) (Auto) 13 % (24-48) Monocytes (%) (Auto) 9 % (0-9) Eosinophils (%) (Auto) 9 % (0-3) Basophils (%) (Auto) 1 % (0-3) Neutrophils # (Auto) 6.9 x10^3/uL (1.8-7.7) Lymphocytes # (Auto) 1.4 x10^3/uL (1.0-4.8) Monocytes # (Auto) 1.0 x10^3/uL (0.0-1.1) Eosinophils # (Auto) 0.9 x10^3/uL (0.0-0.7) Basophils # (Auto) 0.1 x10^3/uL (0.0-0.2) Sodium Level 139 mmol/L (136-145) Potassium Level 3.5 mmol/L (3.5-5.1) Chloride Level 104 mmol/L (98-107) Carbon Dioxide Level 26 mmol/L (21-32) Anion Gap 9 (6-14) Blood Urea Nitrogen 13 mg/dL (8-26) Creatinine 1.1 mg/dL (0.7-1.3) Estimated GFR (Cockcroft-Gault) 65.8 Glucose Level 116 mg/dL (70-99) Calcium Level 8.4 mg/dL (8.5-10.1) Microbiology 03/14/19 Blood Culture - Preliminary, Resulted NO GROWTH AFTER 1 DAY Medications Current Medications Vancomycin HCl 250 ml @ 250 mls/hr 1X ONCE IV ; Start 03/12/19 at 00:45; Stop 03/12/19 at 01:44; Status UNV Morphine Sulfate (Morphine Sulfate) 4 mg 1X ONCE IV Last administered on 03/12/19at 00:58; Start 03/12/19 at 01:00; Stop 03/12/19 at 01:01; Status DC Vancomycin HCl (Vanco Per Pharmacy) 1 each PRN DAILY PRN MC SEE COMMENTS Last administered on 03/15/19at 10:25; Start 03/12/19 at 00:45 Vancomycin HCl 2 gm/Sodium Chloride 500 ml @ 250 mls/hr 1X ONCE IV Last administered on 03/12/19at 01:00; Start 03/12/19 at 01:00; Stop 03/12/19 at 02:59; Status DC Ondansetron HCl (Zofran) 4 mg PRN Q8HRS PRN IV NAUSEA/VOMITING 1ST CHOICE; Start 03/12/19 at 01:30; Stop 03/13/19 at 01:29; Status DC Morphine Sulfate (Morphine Sulfate) 4 mg PRN Q6HRS PRN IV SEVERE PAIN 7-10 Last administered on 03/15/19 18:26; Start 03/12/19 at 01:30 Potassium Chloride (Klor-Con) 40 meq 1X ONCE PO Last administered on 03/12/19 03:06; Start 03/12/19 at 02:00; Stop 03/12/19 at 02:01; Status DC Vancomycin HCl 1.25 gm/Sodium Chloride 250 ml @ 167 mls/hr Q12H IV Last administered on 03/15/19at 20:12; Start 03/12/19 at 13:00 Vancomycin HCl (Vancomycin Trough Level) 1 each 1X ONCE MC Last administered on 03/13/19 13:38; Start 03/13/19 at 12:30; Stop 03/13/19 at 12:31; Status DC Acetaminophen/ Hydrocodone Bitart (Lortab 5/325) 1 tab PRN Q4HRS PRN PO PAIN MILD TO MOD Last administered on 03/12/19 20:21; Start 03/12/19 at 12:00 Lactobacillus Rhamnosus (Culturelle) 1 cap BID PO Last administered on 03/15/19at 20:04; Start 03/12/19 at 21:00 Ascorbic Acid (Vitamin C) 500 mg DAILY PO Last administered on 03/15/19 08:23; Start 03/12/19 at 17:00 Multivitamins (Thera M Plus) 1 tab DAILY PO Last administered on 03/15/19at 08:23; Start 03/12/19 at 17:00 Potassium Chloride (Klor-Con) 40 meq 1X ONCE PO Last administered on 03/12/19at 14:41; Start 03/12/19 at 14:15; Stop 03/12/19 at 14:16; Status DC Potassium Chloride (Klor-Con) 20 meq DAILYWBKFT PO Last administered on 03/15/19 08:23; Start 03/13/19 at 08:00 Enoxaparin Sodium (Lovenox 40mg Syringe) 40 mg Q24H SQ Last administered on 03/15/19 17:02; Start 03/12/19 at 18:00 Metoprolol Tartrate (Lopressor) 50 mg BID PO Last administered on 03/15/19 20:05; Start 03/12/19 at 14:30 Temazepam (Restoril) 7.5 mg PRN QHS PRN PO INSOMNIA Last administered on 03/12/19 20:21; Start 03/12/19 at 19:45 Nicotine Polacrilex (Nicorette Gum) 1 each PRN Q1HR PRN BC SMOKING CESSATION Last administered on 03/12/19 20:34; Start 03/12/19 at 19:45 Nicotine (Nicoderm Cq 21mg) 1 patch PRN DAILY PRN TD SMOKING CESSATION Last administered on 03/14/19 08:31; Start 03/12/19 at 19:45 Calcium Carbonate/ Glycine (Tums) 500 mg PRN AFTMEALHC PRN PO INDIGESTION; Start 03/12/19 at 19:45 Magnesium Hydroxide (Milk Of Magnesia) 2,400 mg PRN DAILY PRN PO CONSTIPATION, 2ND CHOICE; Start 03/12/19 at 19:45 Polyethylene Glycol (miraLAX PACKET) 17 gm PRN DAILY PRN PO CONSTIPATION, 1ST CHOICE; Start 03/12/19 at 19:45 Oxycodone/ Acetaminophen (Percocet 5/325) 1 tab PRN Q6HRS PRN PO PAIN SEVERE; Start 03/13/19 at 08:00; Stop 03/13/19 at 08:00; Status DC Diphenhydramine HCl (Benadryl) 25 mg PRN Q12HR PRN PO ITCHING Last administered on 03/15/19 20:04; Start 03/13/19 at 08:00 Oxycodone/ Acetaminophen (Percocet 5/325) 1 tab PRN Q4HRS PRN PO PAIN SEVERE Last administered on 03/15/19at 22:31; Start 03/13/19 at 08:00 Albuterol Sulfate (Ventolin Neb Soln) 2.5 mg PRN Q4HRS PRN NEB SHORTNESS OF BREATH Last administered on 03/13/19at 21:48; Start 03/13/19 at 16:45 Budesonide (Pulmicort) 0.5 mg RTBID NEB Last administered on 03/14/19at 20:19; Start 03/13/19 at 20:00 Albuterol Sulfate (Ventolin Neb Soln) 2.5 mg RTQID NEB ; Start 03/13/19 at 20:00; Stop 03/13/19 at 20:00; Status DC Piperacillin Sod/ Tazobactam Sod 3.375 gm/Sodium Chloride 50 ml @ 100 mls/hr Q6HRS IV Last administered on 03/16/19at 05:34; Start 03/14/19 at 12:00 Potassium Chloride (Klor-Con) 20 meq 1X ONCE PO Last administered on 03/15/19at 08:46; Start 03/15/19 at 08:30; Stop 03/15/19 at 08:31; Status DC Zinc Acetate/ Diphenhydramine (Benadryl Topical) 1 nino PRN BID PRN TP ITCHING Last administered on 03/15/19at 22:31; Start 03/15/19 at 22:00 Active Scripts Active Reported Symbicort 80-4.5 Mcg Inhaler (Budesonide/Formoterol Fumarate) 10.2 Gm Hfa.aer.ad 2 Puff IH BID Percocet 5-325 Mg Tablet (Oxycodone/Acetaminophen) 1 Each Tablet 1 Tab PO PRN Q6HRS PRN Metoprolol Tartrate 50 Mg Tablet 1 Tab PO BID Vitals/I & O Vital Sign - Last 24 Hours 03/15/19 03/15/19 03/15/19 03/15/19 08:23 08:25 09:00 11:00 Temp 97.7 97.7 Pulse 84 71 Resp 16 22 B/P (MAP) 143/83 113/52 (72) Pulse Ox 97 O2 Delivery Room Air Room Air Room Air 03/15/19 03/15/19 03/15/19 03/15/19 15:00 17:02 18:26 18:56 Temp 98.5 98.5 Pulse 83 Resp 22 B/P (MAP) 147/68 (94) Pulse Ox 93 O2 Delivery Room Air Room Air Room Air Room Air 03/15/19 03/15/19 03/15/19 03/15/19 19:15 20:00 20:05 22:31 Temp 98.9 98.9 Pulse 88 83 Resp 22 20 B/P (MAP) 137/64 (88) 147/68 Pulse Ox 95 95 O2 Delivery Room Air Room Air Room Air 03/15/19 03/15/19 03/16/19 23:31 23:43 03:35 Temp 98.3 98.2 98.3 98.2 Pulse 83 79 Resp 20 20 20 B/P (MAP) 12/58 (43) 130/68 (88) Pulse Ox 95 95 97 O2 Delivery Room Air Room Air Room Air Intake and Output 03/15/19 03/15/19 03/16/19 14:59 22:59 06:59 Intake Total 600 ml Output Total 650 ml 700 ml 400 ml Balance -650 ml -700 ml 200 ml SHANI HALE MD Mar 16, 2019 07:56
[2019-03-16] MEDS: POTASSIUM CHLORIDE 20 MEQ TABLET.ER. PO SCH (08:00)
--- NOTE | 2019-03-16 08:00 | NUR ---
Wound Care Pt seen for wound care follow up, and consultation by Dr. Heredia. Pt has a lower extremity ulcer with associated cellulitis, partial thickness, with slough present. EDUIN obtained via Quantaflo, WNL, palpable pedal pulse. Wound redressed with Medihoney alginate to assist with cleaning of the wound bed and its antibacterial effects, covered with Xeroform gauze, ABD and kerlix, recommend changing every 3 days. Medihoney dressing left in pt room for next dressing changes. Spoke with pt re: f/u in the outpt wound clinic, pt agreeable, will have Director obtain authorization from the [place]. Fercho, Director to talk with pt.
[2019-03-16] MEDS: LACTOBACILLUS RHAMNOSUS GG 1 CAPSULE. PO SCH ×2 (08:36→21:17)
[2019-03-16] MEDS: ASCORBIC ACID 500 MG TABLET PO SCH (08:36)
[2019-03-16] MEDS: MULTIVITAMIN with MINERAL TABLET. PO SCH (08:36)
[2019-03-16] MEDS: MORPHINE SULFATE 4 MG/ML VIAL. IV PRN (08:40)
[2019-03-16] MEDS: METOPROLOL TART IMMED RELEASE 50 MG TABLET. PO SCH ×2 (08:43→21:17)
[2019-03-16] MEDS: VANCOMYCIN 1.25 GM in IV NORMAL SALINE 250ML 250 ML IV SCH (08:48)
--- NOTE | 2019-03-16 09:38 | PDOC ---
Infectious Disease Note Subjective Subjective Leg dressing changed earlier Some pain No F/C/N/V/D Vital Sign Vital Signs Vital Signs Date Time Temp Pulse Resp B/P (MAP) Pulse Ox O2 Delivery O2 Flow Rate FiO2 03/16/19 08:43 94 129/59 03/16/19 08:40 Room Air 03/16/19 07:00 98.1 22 93 98.1 Physical Exam PHYSICAL EXAM GENERAL: Lying down, awake, NAD HEENT: Oropharynx pink and moist. Edentulous. NECK: Supple. LUNGS: Clear to auscultation. HEART: S1, S2. ABDOMEN: Obese, soft, nontender with bowel sounds present. EXTREMITIES: 1+ edema, LLE bandaged SKIN: Warm to touch. NEUROLOGIC: Alert and oriented x 3. PIV Labs Micro Microbiology 03/14/19 Blood Culture - Preliminary, Resulted NO GROWTH AFTER 1 DAY Objective Assessment Chronic ulceration with secondary infection of posterior left lower leg Leukocytosis Chills OA HTN CAD Plan Plan of Care Continue vancomycin and Zosyn Trough 15.6 monitor renal functions closely f/u wound cults pending Local wound care Pain management per primary D/w nursing Attending Co-Sign The patient was seen and interviewed as well as examined at the bedside. The chart was reviewed. The case was discussed. Agree with the plan of care. change antibiotics to po augmentin ok to d/c to SNF LYLE GAO APRN Mar 16, 2019 09:38 VIVEK BURNHAM MD Mar 16, 2019 11:13
--- NOTE | 2019-03-16 09:41 | PDOC2 ---
CONSULT Date of Consult Date of Consult DATE: 03/16/19 TIME: 09:31 Reason for Consult Reason for Consult: Left calf wounds Referring Physician Referring Physician: Dr. Morales Identification/Chief Complaint Chief Complaint Left lower leg cellulitis with associated left calf wounds Source Source: Chart review, Patient History of Present Illness Reason for Visit: This is a 73-year-old patient recently admitted for skin breakdown, wounding and left lower leg cellulitis. He is currently on IV antibiotics. Patient states pain is improved. He states he is not aware of significant history of wounding or ulceration. He is aware the site being tender, itching and he may have scratched the area as well. He is alert he had an ultrasound without evidence of DVT. He is not aware of chills or fever in the past 24 hours. Past Medical History Past Medical History Past medical history pertinent for coronary artery disease, hypertension, hyperlipidemia and hypothyroidism Past Surgical History Past Surgical History Surgical history includes appendectomy, coronary stenting and tonsillectomy Family History Family History: High Cholestrol, Obesity Social History No ALCOHOL: none Drugs: None Current Medications Current Medications Current Medications Vancomycin HCl 250 ml @ 250 mls/hr 1X ONCE IV ; Start 03/12/19 at 00:45; Stop 03/12/19 at 01:44; Status UNV Morphine Sulfate (Morphine Sulfate) 4 mg 1X ONCE IV Last administered on 03/12/19at 00:58; Start 03/12/19 at 01:00; Stop 03/12/19 at 01:01; Status DC Vancomycin HCl (Vanco Per Pharmacy) 1 each PRN DAILY PRN MC SEE COMMENTS Last administered on 03/15/19at 10:25; Start 03/12/19 at 00:45 Vancomycin HCl 2 gm/Sodium Chloride 500 ml @ 250 mls/hr 1X ONCE IV Last administered on 03/12/19at 01:00; Start 03/12/19 at 01:00; Stop 03/12/19 at 02:59; Status DC Ondansetron HCl (Zofran) 4 mg PRN Q8HRS PRN IV NAUSEA/VOMITING 1ST CHOICE; Start 03/12/19 at 01:30; Stop 03/13/19 at 01:29; Status DC Morphine Sulfate (Morphine Sulfate) 4 mg PRN Q6HRS PRN IV SEVERE PAIN 7-10 Last administered on 03/16/19at 08:40; Start 03/12/19 at 01:30 Potassium Chloride (Klor-Con) 40 meq 1X ONCE PO Last administered on 03/12/19 03:06; Start 03/12/19 at 02:00; Stop 03/12/19 at 02:01; Status DC Vancomycin HCl 1.25 gm/Sodium Chloride 250 ml @ 167 mls/hr Q12H IV Last administered on 03/16/19 08:48; Start 03/12/19 at 13:00 Vancomycin HCl (Vancomycin Trough Level) 1 each 1X ONCE MC Last administered on 03/13/19 13:38; Start 03/13/19 at 12:30; Stop 03/13/19 at 12:31; Status DC Acetaminophen/ Hydrocodone Bitart (Lortab 5/325) 1 tab PRN Q4HRS PRN PO PAIN MILD TO MOD Last administered on 03/12/19 20:21; Start 03/12/19 at 12:00 Lactobacillus Rhamnosus (Culturelle) 1 cap BID PO Last administered on 08:36; Start 03/12/19 at 21:00 Ascorbic Acid (Vitamin C) 500 mg DAILY PO Last administered on 03/16/19 08:36; Start 03/12/19 at 17:00 Multivitamins (Thera M Plus) 1 tab DAILY PO Last administered on 03/16/19 08:36; Start 03/12/19 at 17:00 Potassium Chloride (Klor-Con) 40 meq 1X ONCE PO Last administered on 03/12/19 14:41; Start 03/12/19 at 14:15; Stop 03/12/19 at 14:16; Status DC Potassium Chloride (Klor-Con) 20 meq DAILYWBKFT PO Last administered on 03/15/19 08:23; Start 03/13/19 at 08:00 Enoxaparin Sodium (Lovenox 40mg Syringe) 40 mg Q24H SQ Last administered on 03/15/19 17:02; Start 03/12/19 at 18:00 Metoprolol Tartrate (Lopressor) 50 mg BID PO Last administered on 03/16/19 08:43; Start 03/12/19 at 14:30 Temazepam (Restoril) 7.5 mg PRN QHS PRN PO INSOMNIA Last administered on 7/19/19at 20:21; Start 03/12/19 at 19:45 Nicotine Polacrilex (Nicorette Gum) 1 each PRN Q1HR PRN BC SMOKING CESSATION Last administered on 03/12/19at 20:34; Start 03/12/19 at 19:45 Nicotine (Nicoderm Cq 21mg) 1 patch PRN DAILY PRN TD SMOKING CESSATION Last administered on 03/14/19at 08:31; Start 03/12/19 at 19:45 Calcium Carbonate/ Glycine (Tums) 500 mg PRN AFTMEALHC PRN PO INDIGESTION; Start 03/12/19 at 19:45 Magnesium Hydroxide (Milk Of Magnesia) 2,400 mg PRN DAILY PRN PO CONSTIPATION, 2ND CHOICE; Start 03/12/19 at 19:45 Polyethylene Glycol (miraLAX PACKET) 17 gm PRN DAILY PRN PO CONSTIPATION, 1ST CHOICE; Start 03/12/19 at 19:45 Oxycodone/ Acetaminophen (Percocet 5/325) 1 tab PRN Q6HRS PRN PO PAIN SEVERE; Start 03/13/19 at 08:00; Stop 03/13/19 at 08:00; Status DC Diphenhydramine HCl (Benadryl) 25 mg PRN Q12HR PRN PO ITCHING Last administered on 03/15/19at 20:04; Start 03/13/19 at 08:00 Oxycodone/ Acetaminophen (Percocet 5/325) 1 tab PRN Q4HRS PRN PO PAIN SEVERE Last administered on 03/15/19at 22:31; Start 03/13/19 at 08:00 Albuterol Sulfate (Ventolin Neb Soln) 2.5 mg PRN Q4HRS PRN NEB SHORTNESS OF BREATH Last administered on 03/13/19at 21:48; Start 03/13/19 at 16:45 Budesonide (Pulmicort) 0.5 mg RTBID NEB Last administered on 03/14/19at 20:19; Start 03/13/19 at 20:00 Albuterol Sulfate (Ventolin Neb Soln) 2.5 mg RTQID NEB ; Start 03/13/19 at 20:00; Stop 03/13/19 at 20:00; Status DC Piperacillin Sod/ Tazobactam Sod 3.375 gm/Sodium Chloride 50 ml @ 100 mls/hr Q 6HRS IV Last administered on 03/16/19at 05:34; Start 03/14/19 at 12:00 Potassium Chloride (Klor-Con) 20 meq 1X ONCE PO Last administered on 03/15/19at 08:46; Start 03/15/19 at 08:30; Stop 03/15/19 at 08:31; Status DC Zinc Acetate/ Diphenhydramine (Benadryl Topical) 1 nino PRN BID PRN TP ITCHING Last administered on 03/15/19at 22:31; Start 03/15/19 at 22:00 Active Scripts Active Reported Symbicort 80-4.5 Mcg Inhaler (Budesonide/Formoterol Fumarate) 10.2 Gm Hfa.aer.ad 2 Puff IH BID Percocet 5-325 Mg Tablet (Oxycodone/Acetaminophen) 1 Each Tablet 1 Tab PO PRN Q6HRS PRN Metoprolol Tartrate 50 Mg Tablet 1 Tab PO BID Allergies Allergies: Coded Allergies: No Known Drug Allergies (Unverified , 03/12/19) ROS Review of System Negative except as reported below General: YES: Fatigue PSYCHOLOGICAL ROS: YES: Other (PTSD) Cardiovascular: yes Other (he is aware of mild lower extremity edema at times) Musculoskeletal: Yes Other (he describes scattered large joint arthralgias) Physical Exam General: Alert, Oriented X3, Cooperative, No acute distress HEENT: Atraumatic, PERRLA, EOMI Lungs: Clear to auscultation, Normal air movement Heart: Regular rate, Normal S1 Abdomen: Soft, No tenderness Extremities: No clubbing, No cyanosis, No edema, Other (quanta flow is 1.15) Skin: Other (area covering roughly a 8 cm x 10 cm area of the left posterior lower leg with relatively superficial ulcerations. Moderate slough identified and easily removed.) Neuro: Normal speech, Sensation intact Psych/Mental Status: Mental status NL, Mood NL MUSCULOSKELETAL: Not examined Vitals VITALS Vital Signs Date Time Temp Pulse Resp B/P (MAP) Pulse Ox O2 Delivery O2 Flow Rate FiO2 03/16/19 08:43 94 129/59 03/16/19 08:40 Room Air 03/16/19 07:00 98.1 22 93 98.1 Labs Labs Laboratory Tests Test 7/22/19 06:10 White Blood Count 10.3 x10^3/uL (4.0-11.0) Red Blood Count 4.42 x10^6/uL (4.30-5.70) Hemoglobin 13.3 g/dL (13.0-17.5) Hematocrit 39.0 % (39.0-53.0) Mean Corpuscular Volume 88 fL (79-100) Mean Corpuscular Hemoglobin 30 pg (25-35) Mean Corpuscular Hemoglobin Concent 34 g/dL (31-37) Red Cell Distribution Width 14.2 % (11.5-14.5) Platelet Count 241 x10^3/uL (140-400) Neutrophils (%) (Auto) 67 % (31-73) Lymphocytes (%) (Auto) 13 % (24-48) Monocytes (%) (Auto) 9 % (0-9) Eosinophils (%) (Auto) 9 % (0-3) Basophils (%) (Auto) 1 % (0-3) Neutrophils # (Auto) 6.9 x10^3/uL (1.8-7.7) Lymphocytes # (Auto) 1.4 x10^3/uL (1.0-4.8) Monocytes # (Auto) 1.0 x10^3/uL (0.0-1.1) Eosinophils # (Auto) 0.9 x10^3/uL (0.0-0.7) Basophils # (Auto) 0.1 x10^3/uL (0.0-0.2) Sodium Level 139 mmol/L (136-145) Potassium Level 3.5 mmol/L (3.5-5.1) Chloride Level 104 mmol/L (98-107) Carbon Dioxide Level 26 mmol/L (21-32) Anion Gap 9 (6-14) Blood Urea Nitrogen 13 mg/dL (8-26) Creatinine 1.1 mg/dL (0.7-1.3) Estimated GFR (Cockcroft-Gault) 65.8 Glucose Level 116 mg/dL (70-99) Calcium Level 8.4 mg/dL (8.5-10.1) Assessment/Plan Assessment/Plan Left lower extremity cellulitis with associated wounding. Patient would like to follow-up in the wound care center. We will provide for this. Orders written for appropriate dressings. Quant of flow wnl. VARUN VALENTE DO Mar 16, 2019 09:41
[2019-03-16] MEDS: oxyCODONE/APAP 5/325 1 TAB TABLET PO PRN ×2 (10:48→17:46)
[2019-03-16 11:00] VITALS: BP 150/76
[2019-03-16] MEDS: AMOXICILLIN/K CLAV 875/125MG TABLET. PO SCH ×2 (11:59→21:17)
[2019-03-16] MEDS ORDERED: LACT1CAP19 PO (13:01)
[2019-03-16] MEDS ORDERED: AMOX1TAB11 PO (13:01)
[2019-03-16] MEDS ORDERED: POTA20TA4 PO (13:01)
[2019-03-16] MEDS ORDERED: TEMA7.5C2 PO (13:01)
[2019-03-16] MEDS ORDERED: OXYC1TAB15 PO (13:01)
--- NOTE | 2019-03-16 13:03 | SNU/HH DC ---
DISCHARGE ORDERS DISCHARGE INFORMATION: DISCHARGE DATE: Mar 16, 2019 FINAL DIAGNOSIS LLE cellulitis CONDITION ON DISCHARGE: Stable CODE STATUS: Code Status: Full [facility]: SNF STAY <30 DAYS: Yes POST DISCHARGE ORDERS: ACTIVITY ORDERS: Resume previous activity WEIGHT BEARING STATUS: Full weight bearing DIET AFTER DISCHARGE: Regular WOUND/INCISION CARE: Keep wound elevated, Change dressing CHECKS AFTER DISCHARGE: CHECKS AFTER DISCHARGE: Check blood press - daily TREATMENT/EQUIPMENT ORDERS: ADAPTIVE EQUIPMENT NEEDED: None Physical Therapy For: Evalulation/Treatment Occupational Therapy For: Evaluation/Treatment DISCHARGE MEDICATIONS: Home Meds Active Scripts Lactobacillus Rhamnosus Gg (CULTURELLE) 1 Each Cap.sprink, 1 CAP PO BID for Diar kit for 10 Days, #20 CAP Prov:SHANI HALE MD 03/16/19 Potassium Chloride (KLOR-CON M20) 20 Meq Tab.er.prt, 20 MEQ PO DAILYWBKFT for Hypokalemia for 30 Days, #30 TAB.SR Prov:SHANI HALE MD 03/16/19 Temazepam (RESTORIL) 7.5 Mg Capsule, 7.5 MG PO PRN QHS PRN for INSOMNIA for 15 Days, #10 CAP Prov:SHANI HALE MD 03/16/19 Amoxicillin/Potassium Clav (AMOX TR-K CLV 875-125 MG TAB) 1 Each Tablet, 1 TAB PO BID for Cellulitis for 10 Days, #20 TAB Prov:SHANI HALE MD 03/16/19 Oxycodone/Apap 5-325 (PERCOCET 5-325 MG TABLET ) 1 Each Tablet, 1 TAB PO PRN Q6HRS PRN for PAIN for 6 Days, #15 TAB 0 Refills Prov:SHANI HALE MD 03/16/19 Reported Medications Budesonide/Formoterol Fumarate (SYMBICORT 80-4.5 MCG INHALER) 10.2 Gm Hfa.aer.ad, 2 PUFF IH BID for COPD, #10.2 GM 5 Refills 03/13/19 Metoprolol Tartrate (METOPROLOL TARTRATE) 50 Mg Tablet, 1 TAB PO BID for hypertension, #60 TAB 5 Refills 03/12/19 SHANI HALE MD Mar 16, 2019 13:02
--- NOTE | 2019-03-16 13:03 | PDOC3 ---
Discharge Summary Visit Information Date of Admission: Mar 12, 2019 Date of Discharge: Mar 17, 2019 Admitting Diagnosis: LLE cellulitis Final Diagnosis LLE cellulitis Brief Hospital Course Allergies Allergies Coded Allergies Type Severity Reaction Last Updated Verified No Known Drug Allergies 03/12/19 No Vital Signs Vital Signs Date Time Temp Pulse Resp B/P (MAP) Pulse Ox O2 Delivery O2 Flow Rate FiO2 03/16/19 12:00 Room Air 03/16/19 11:00 98.3 82 22 150/76 (100) 95 98.3 Lab Results Laboratory Tests Test 03/15/19 06:10 White Blood Count 10.3 x10^3/uL (4.0-11.0) Red Blood Count 4.42 x10^6/uL (4.30-5.70) Hemoglobin 13.3 g/dL (13.0-17.5) Hematocrit 39.0 % (39.0-53.0) Mean Corpuscular Volume 88 fL (79-100) Mean Corpuscular Hemoglobin 30 pg (25-35) Mean Corpuscular Hemoglobin Concent 34 g/dL (31-37) Red Cell Distribution Width 14.2 % (11.5-14.5) Platelet Count 241 x10^3/uL (140-400) Neutrophils (%) (Auto) 67 % (31-73) Lymphocytes (%) (Auto) 13 % (24-48) Monocytes (%) (Auto) 9 % (0-9) Eosinophils (%) (Auto) 9 % (0-3) Basophils (%) (Auto) 1 % (0-3) Neutrophils # (Auto) 6.9 x10^3/uL (1.8-7.7) Lymphocytes # (Auto) 1.4 x10^3/uL (1.0-4.8) Monocytes # (Auto) 1.0 x10^3/uL (0.0-1.1) Eosinophils # (Auto) 0.9 x10^3/uL (0.0-0.7) Basophils # (Auto) 0.1 x10^3/uL (0.0-0.2) Sodium Level 139 mmol/L (136-145) Potassium Level 3.5 mmol/L (3.5-5.1) Chloride Level 104 mmol/L (98-107) Carbon Dioxide Level 26 mmol/L (21-32) Anion Gap 9 (6-14) Blood Urea Nitrogen 13 mg/dL (8-26) Creatinine 1.1 mg/dL (0.7-1.3) Estimated GFR (Cockcroft-Gault) 65.8 Glucose Level 116 mg/dL (70-99) Calcium Level 8.4 mg/dL (8.5-10.1) Brief Hospital Course Mr. Kruger is a 73 year old [employer] w/ PMHx Hypertension, osteoarthritis, myocardial infarction, PTSD, coronary artery disease, hyperlipidemia, hypothyroidism who says he developed some skin breakdown from scratching himself on the posterior aspect of his left lower leg about 5 months ago. The area has failed to heal and has increased in size. He complains of persistent burning type pain, drainage and swelling. He was evaluated at the [facility]. He was treated with oral antibiotics once. The patient says he did not see any improvement. He has now been admitted and was on vancomycin. A venous ultrasound showed no evidence of DVT. Seen by ID, able to transition to augmentin. Initially planned on d/c to SNF, however many SNF are too close to schools and as a convicted sex offender he was not able to d/c to SNF, instead home with home health and f/u in wound care clinic and at the [facility]. Cellulitis of left lower extremity obesity hypokalemia hypertension Greater than 30 minutes spent on discharge Discharge Information Condition at Discharge: Improved Follow Up: Weeks (2) Disposition/Orders: D/C to Home w/ HH Scheduled Amoxicillin/Potassium Clav (Amox Tr-K Clv 875-125 Mg Tab) 1 Each Tablet, 1 TAB PO BID for Cellulitis for 10 Days, #20 Prescribed by: SHANI HALE MD on 03/16/19 1301 Budesonide/Formoterol Fumarate (Symbicort 80-4.5 Mcg Inhaler) 10.2 Gm Hfa.aer.ad, 2 PUFF IH BID for COPD, #10.2 Ref 5 (Reported) Entered as Reported by: CHAPIS ROY RN on 03/13/191634 Last Action: Converted on 03/13/191634 by CHAPIS ROY RN Lactobacillus Rhamnosus Gg (Culturelle) 1 Each Cap.sprink, 1 CAP PO BID for Diarrhea for 10 Days, #20 Prescribed by: SHANI HALE MD on 03/16/19 1301 Metoprolol Tartrate (Metoprolol Tartrate) 50 Mg Tablet, 1 TAB PO BID for hypertension, #60 Ref 5 (Reported) Entered as Reported by: ELIZA CHENG on 03/12/19 0335 Last Taken: Unknown Dose on Unknown Date & Time Last Action: Continued on 03/12/19 1406 by LAUREL GLASS MD Potassium Chloride (Klor-Con M20) 20 Meq Tab.er.prt, 20 MEQ PO DAILYWBKFT for Hypokalemia for 30 Days, #30 Prescribed by: SHANI HALE MD on 03/16/19 1301 Scheduled PRN Oxycodone/Apap 5-325 (Percocet 5-325 Mg Tablet ) 1 Each Tablet, 1 TAB PO PRN Q6HRS PRN for PAIN for 6 Days, #15 Ref 0 Prescribed by: SHANI HALE MD on 03/16/19 1301 Temazepam (Restoril) 7.5 Mg Capsule, 7.5 MG PO PRN QHS PRN for INSOMNIA for 15 Days, #10 Prescribed by: SHANI HALE MD on 03/16/19 1301 SHANI HALE MD Mar 16, 2019 13:03
[2019-03-16 15:00] VITALS: BP 138/68
--- NOTE | 2019-03-16 17:28 | NUR ---
Report called to Lanny WOODY at [facility].
[2019-03-16] MEDS ORDERED: BUDESONIDE 0.5 MG/2 ML NEBU. NEB PRN (17:30)
[2019-03-16] MEDS: ENOXAPARIN 40 MG/0.4 ML SYRINGE. SQ SCH (17:46)
--- NOTE | 2019-03-16 17:56 | NUR ---
Lanny WOODY from [facility], called and stated could not accept this patient because they are located near a school zone. Notified education dean.
[2019-03-16 19:00] VITALS: BP 131/71
[2019-03-16] MEDS: TEMAZEPAM 7.5 MG CAPSULE PO PRN (21:17)
[2019-03-16] MEDS: diphenhydrAMINE HCL 25 MG CAPSULE PO PRN (22:21)
[2019-03-16] MEDS: HYDROcodone/APAP 5/325MG 1 TAB TABLET PO PRN (22:23)
[2019-03-16 23:00] VITALS: BP 146/60
[2019-03-17 02:48] VITALS: BP 148/76
[2019-03-17] MEDS: HYDROcodone/APAP 5/325MG 1 TAB TABLET PO PRN (05:27)
[2019-03-17 07:00] VITALS: BP 166/80
--- NOTE | 2019-03-17 07:47 | PDOC ---
PROGRESS NOTES Chief Complaint Chief Complaint Assessment/Plan Cellulitis of left lower extremity obesity hypokalemia hypertension History of Present Illness History of Present Illness Admitted with LLE cellulitis and ulcer on posterior leg Pt says has some nausea tolerating po intake well Leg pain continues but improving slowly He is asking when his left hip can be replaced. He is amenable to rehab. Culture negative thus far. He wishes to smoke at his SNF, advised he cannot go to [facility]. He is ready for discharge, on oral antibiotics. Vitals Vitals Vital Signs Date Time Temp Pulse Resp B/P (MAP) Pulse Ox O2 Delivery O2 Flow Rate FiO2 03/17/19 07:04 96 Room Air 03/17/19 05:27 22 03/17/19 02:48 98.8 79 148/76 (100) 98.8 Physical Exam Physical Exam GENERAL: Lying down, awake, NAD HEENT: Oropharynx pink and moist. Edentulous. NECK: Supple. LUNGS: Clear to auscultation. HEART: S1, S2. ABDOMEN: Obese, soft, nontender with bowel sounds present. EXTREMITIES: 1+ edema, LLE bandaged SKIN: Warm to touch. NEUROLOGIC: Alert and oriented x 3. PIV General: Alert, Oriented X3, Cooperative, No acute distress Heart: Regular rate, Normal S1 Lungs: Clear Abdomen: Soft, No tenderness Extremities: No clubbing, No cyanosis, No edema, Other (quanta flow is 1.15) Skin: Other (area covering roughly a 8 cm x 10 cm area of the left posterior lower leg with relatively superficial ulcerations. Moderate slough identified and easily removed.) Comment Review of Relevant I have reviewed the following items ben (where applicable) has been applied. Labs Microbiology 03/14/19 Blood Culture - Preliminary, Resulted NO GROWTH AFTER 2 DAYS Medications Current Medications Vancomycin HCl 250 ml @ 250 mls/hr 1X ONCE IV ; Start 03/12/19 at 00:45; Stop 03/12/19 at 01:44; Status UNV Morphine Sulfate (Morphine Sulfate) 4 mg 1X ONCE IV Last administered on 03/12/19at 00:58; Start 03/12/19 at 01:00; Stop 03/12/19 at 01:01; Status DC Vancomycin HCl (Vanco Per Pharmacy) 1 each PRN DAILY PRN MC SEE COMMENTS Last administered on 03/15/19at 10:25; Start 03/12/19 at 00:45; Stop 03/16/19 at 11:13; Status DC Vancomycin HCl 2 gm/Sodium Chloride 500 ml @ 250 mls/hr 1X ONCE IV Last administered on 03/12/19at 01:00; Start 03/12/19 at 01:00; Stop 03/12/19 at 02:59; Status DC Ondansetron HCl (Zofran) 4 mg PRN Q8HRS PRN IV NAUSEA/VOMITING 1ST CHOICE; Start 03/12/19 at 01:30; Stop 03/13/19 at 01:29; Status DC Morphine Sulfate (Morphine Sulfate) 4 mg PRN Q6HRS PRN IV SEVERE PAIN 7-10 Last administered on 03/16/19 08:40; Start 03/12/19 at 01:30 Potassium Chloride (Klor-Con) 40 meq 1X ONCE PO Last administered on 03/12/19 03:06; Start 03/12/19 at 02:00; Stop 03/12/19 at 02:01; Status DC Vancomycin HCl 1.25 gm/Sodium Chloride 250 ml @ 167 mls/hr Q12H IV Last administered on 03/16/19 08:48; Start 03/12/19 at 13:00; Stop 03/16/19 at 11:13; Status DC Vancomycin HCl (Vancomycin Trough Level) 1 each 1X ONCE MC Last administered on 03/13/19at 13:38; Start 03/13/19 at 12:30; Stop 03/13/19 at 12:31; Status DC Acetaminophen/ Hydrocodone Bitart (Lortab 5/325) 1 tab PRN Q4HRS PRN PO PAIN MILD TO MOD Last administered on 03/17/19at 05:27; Start 03/12/19 at 12:00 Lactobacillus Rhamnosus (Culturelle) 1 cap BID PO Last administered on 03/16/19at 21:17; Start 03/12/19 at 21:00 Ascorbic Acid (Vitamin C) 500 mg DAILY PO Last administered on 03/16/19 08:36; Start 03/12/19 at 17:00 Multivitamins (Thera M Plus) 1 tab DAILY PO Last administered on 03/16/19 08:36; Start 03/12/19 at 17:00 Potassium Chloride (Klor-Con) 40 meq 1X ONCE PO Last administered on 03/12/19at 14:41; Start 03/12/19 at 14:15; Stop 03/12/19 at 14:16; Status DC Potassium Chloride (Klor-Con) 20 meq DAILYWBKFT PO Last administered on 03/15/19at 08:23; Start 03/13/19 at 08:00 Enoxaparin Sodium (Lovenox 40mg Syringe) 40 mg Q24H SQ Last administered on 03/16/19at 17:46; Start 03/12/19 at 18:00 Metoprolol Tartrate (Lopressor) 50 mg BID PO Last administered on 03/16/19 21:17; Start 03/12/19 at 14:30 Temazepam (Restoril) 7.5 mg PRN QHS PRN PO INSOMNIA Last administered on 03/16/19at 21:17; Start 03/12/19 at 19:45 Nicotine Polacrilex (Nicorette Gum) 1 each PRN Q1HR PRN BC SMOKING CESSATION Last administered on 03/12/19at 20:34; Start 03/12/19 at 19:45 Nicotine (Nicoderm Cq 21mg) 1 patch PRN DAILY PRN TD SMOKING CESSATION Last administered on 03/14/19at 08:31; Start 03/12/19 at 19:45 Calcium Carbonate/ Glycine (Tums) 500 mg PRN AFTMEALHC PRN PO INDIGESTION; Start 03/12/19 at 19:45 Magnesium Hydroxide (Milk Of Magnesia) 2,400 mg PRN DAILY PRN PO CONSTIPATION, 2ND CHOICE; Start 03/12/19 at 19:45 Polyethylene Glycol (miraLAX PACKET) 17 gm PRN DAILY PRN PO CONSTIPATION, 1ST CHOICE; Start 03/12/19 at 19:45 Oxycodone/ Acetaminophen (Percocet 5/325) 1 tab PRN Q6HRS PRN PO PAIN SEVERE; Start 03/13/19 at 08:00; Stop 03/13/19 at 08:00; Status DC Diphenhydramine HCl (Benadryl) 25 mg PRN Q12HR PRN PO ITCHING Last administered on 03/16/19 22:21; Start 03/13/19 at 08:00 Oxycodone/ Acetaminophen (Percocet 5/325) 1 tab PRN Q4HRS PRN PO PAIN SEVERE Last administered on 03/16/19at 17:46; Start 03/13/19 at 08:00 Albuterol Sulfate (Ventolin Neb Soln) 2.5 mg PRN Q4HRS PRN NEB SHORTNESS OF BREATH Last administered on 03/13/19at 21:48; Start 03/13/19 at 16:45 Budesonide (Pulmicort) 0.5 mg RTBID NEB Last administered on 03/14/19at 20:19; Start 03/13/19 at 20:00; Stop 03/16/19 at 17:21; Status DC Albuterol Sulfate (Ventolin Neb Soln) 2.5 mg RTQID NEB ; Start 03/13/19 at 20:00; Stop 03/13/19 at 20:00; Status DC Piperacillin Sod/ Tazobactam Sod 3.375 gm/Sodium Chloride 50 ml @ 100 mls/hr Q6HRS IV Last administered on 03/16/19at 05:34; Start 03/14/19 at 12:00; Stop at 11:13; Status DC Potassium Chloride (Klor-Con) 20 meq 1X ONCE PO Last administered on 03/15/19at 08:46; Start 03/15/19 at 08:30; Stop 03/15/19 at 08:31; Status DC Zinc Acetate/ Diphenhydramine (Benadryl Topical) 1 nino PRN BID PRN TP ITCHING L ast administered on 03/15/19at 22:31; Start 03/15/19 at 22:00 Amoxicillin/ Clavulanate Potassium (Augmentin 875/ 125mg) 1 tab BID PO Last administered on 03/16/19at 21:17; Start 03/16/19 at 12:00 Budesonide (Pulmicort) 0.5 mg PRN BID PRN NEB SHORTNESS OF BREATH; Start 03/16/19 at 17:30 Active Scripts Active Culturelle (Lactobacillus Rhamnosus Gg) 1 Each Cap.sprink 1 Cap PO BID 10 Days Klor-Con M20 (Potassium Chloride) 20 Meq Tab.er.prt 20 Meq PO DAILYWBKFT 30 Days Restoril (Temazepam) 7.5 Mg Capsule 7.5 Mg PO PRN QHS PRN 15 Days Amox Tr-K Clv 875-125 Mg Tab (Amoxicillin/Potassium Clav) 1 Each Tablet 1 Tab PO BID 10 Days Percocet 5-325 Mg Tablet (Oxycodone/Acetaminophen) 1 Each Tablet 1 Tab PO PRN Q6HRS PRN 6 Days Reported Symbicort 80-4.5 Mcg Inhaler (Budesonide/Formoterol Fumarate) 10.2 Gm Hfa.aer.ad 2 Puff IH BID Metoprolol Tartrate 50 Mg Tablet 1 Tab PO BID Vitals/I & O Vital Sign - Last 24 Hours 03/16/19 03/16/19 03/16/19 03/16/19 08:28 08:40 08:43 09:10 Pulse 94 B/P (MAP) 129/59 O2 Delivery Room Air Room Air Room Air 03/16/19 03/16/19 03/16/19 03/16/19 10:48 11:00 15:00 17:46 Temp 98.3 98.2 98.3 98.2 Pulse 82 80 Resp B/P (MAP) 150/76 (100) 138/68 (91) Pulse Ox 95 93 O2 Delivery Room Air Room Air Room Air Room Air 03/16/19 03/16/19 03/16/19 03/16/19 18:46 19:00 20:00 21:17 Temp 98.3 98.3 Pulse 82 82 Resp 22 B/P (MAP) 131/71 (91) 131/71 Pulse Ox 94 O2 Delivery Room Air Room Air Room Air 03/16/19 03/16/19 03/16/19 03/17/19 22:23 23:00 23:23 02:48 Temp 98.0 98.8 98.0 98.8 Pulse 94 79 Resp 22 22 20 18 B/P (MAP) 146/60 (88) 148/76 (100) Pulse Ox 95 96 O2 Delivery Room Air Room Air Room Air 03/17/19 03/17/19 05:27 07:04 Resp 22 Pulse Ox 96 O2 Delivery Room Air Room Air SHANI HALE MD Mar 17, 2019 07:47
[2019-03-17] MEDS: POTASSIUM CHLORIDE 20 MEQ TABLET.ER. PO SCH ×2 (08:00→08:34)
[2019-03-17] MEDS: ASCORBIC ACID 500 MG TABLET PO SCH (08:34)
[2019-03-17] MEDS: METOPROLOL TART IMMED RELEASE 50 MG TABLET. PO SCH (08:34)
[2019-03-17] MEDS: oxyCODONE/APAP 5/325 1 TAB TABLET PO PRN (08:34)
[2019-03-17] MEDS: LACTOBACILLUS RHAMNOSUS GG 1 CAPSULE. PO SCH (08:34)
[2019-03-17] MEDS: AMOXICILLIN/K CLAV 875/125MG TABLET. PO SCH (08:34)
[2019-03-17] MEDS: MULTIVITAMIN with MINERAL TABLET. PO SCH (08:34)
--- NOTE | 2019-03-17 09:20 | PDOC ---
Infectious Disease Note Subjective Subjective Leg dressing changed earlier Some pain No F/C/N/V/D Vital Sign Vital Signs Vital Signs Date Time Temp Pulse Resp B/P (MAP) Pulse Ox O2 Delivery O2 Flow Rate FiO2 03/17/19 08:34 96 Room Air 03/17/19 08:34 96 166/80 03/17/19 07:00 97.9 18 97.9 Physical Exam PHYSICAL EXAM GENERAL: Lying down, awake, NAD HEENT: Oropharynx pink and moist. Edentulous. NECK: Supple. LUNGS: Clear to auscultation. HEART: S1, S2. ABDOMEN: Obese, soft, nontender with bowel sounds present. EXTREMITIES: 1+ edema, LLE bandaged SKIN: Warm to touch. NEUROLOGIC: Alert and oriented x 3. PIV Labs Micro Microbiology 03/14/19 Blood Culture - Preliminary, Resulted NO GROWTH AFTER 2 DAYS Objective Assessment Chronic ulceration with secondary infection of posterior left lower leg Leukocytosis Chills OA HTN CAD Plan Plan of Care augmentin monitor renal functions closely f/u wound cults pending Local wound care Pain management per primary D/w nursing VIVEK BURNHAM MD Mar 17, 2019 09:20
[2019-03-17 11:00] VITALS: BP 157/78
--- NOTE | 2019-03-17 11:03 | NUR ---
SS following up with discharge planning. SS met with pt to discuss discharge planning. Pt no longer wanting to [facility] to [facility]. Pt reported that he will discharge to home with home healthcare. Pt agreeable to [facility], ; fax [phone]. Pt's RN notified.
[2019-03-17] MEDS: ENOXAPARIN 40 MG/0.4 ML SYRINGE. SQ SCH (13:36)
--- NOTE | 2019-03-17 13:58 | SNU/HH DC ---
DISCHARGE WITH HOME HEALTH DISCHARGE INFORMATION: Discharge Date: Mar 17, 2019 Condition on Discharge: Stable CODE STATUS: Code Status: Full HOME HEALTH: Face to Face: I certify this patient is under my care and that I, or a nurse practitioner or moo cormier's political science research assistant working with me, had a face to face encounter that meets the physician face to face encounter requirements with this patient on 03/17/19. Medical Complications: HTN, Other (Cellulitis) Assisted For: Assess/Skilled Observatio, Medication Management, stumper feller For Eval/Treatment: Yes Physical Therapy For: Evalulation/Treatment Occupational Therapy For: Evaluation/Treatment Home Health Aide For: Self-care DESKTOP SPECIALIST For: Community Resources Pt Meets Homebound Status: Extreme weakness w/ amb. POST DISCHARGE ORDERS: Activity Instructions for Disc: Resume previous activity Weight Bearing Status after Di: Full weight bearing DIET AFTER DISCHARGE: Regular Wound/Incision Care: Keep wound elevated, Change dressing CHECKS AFTER DISCHARGE: Checks after discharge: Check blood press - daily TREATMENT/EQUIPMENT ORDERS: Adaptive Equipment Issued: None CERTIFICATION STATEMENT: Certification Statement: Certification Statement: Based on the above finding, I certify that this patient is confined to the home and needs intermittent snf care, physical therapy and/or speech therapy, or continues to need occupational therapy.~ This patient is under my care, and I have initiated the establishment of the plan of care.~ This patient will be followed by myself or a community physician who will periodically review the plan of care. Home Meds Active Scripts Lactobacillus Rhamnosus Gg (CULTURELLE) 1 Each Cap.sprink, 1 CAP PO BID for Diarrhea for 10 Days, #20 CAP Prov:SHANI HALE MD 03/16/19 Potassium Chloride (KLOR-CON M20) 20 Meq Tab.er.prt, 20 MEQ PO DAILYWBKFT for Hypokalemia for 30 Days, #30 TAB.SR Prov:SHANI HALE MD 03/16/19 Temazepam (RESTORIL) 7.5 Mg Capsule, 7.5 MG PO PRN QHS PRN for INSOMNIA for 15 Days, #10 CAP Prov:SHANI HALE MD 03/16/19 Amoxicillin/Potassium Clav (AMOX TR-K CLV 875-125 MG TAB) 1 Each Tablet, 1 TAB PO BID for Cellulitis for 10 Days, #20 TAB Prov:RIFFEL,CHRISTOPHER S MD 03/16/19 Oxycodone/Apap 5-325 (PERCOCET 5-325 MG TABLET ) 1 Each Tablet, 1 TAB PO PRN Q6HRS PRN for PAIN for 6 Days, #15 TAB 0 Refills Prov:SHANI HALE MD 03/16/19 Reported Medications Budesonide/Formoterol Fumarate (SYMBICORT 80-4.5 MCG INHALER) 10.2 Gm Hfa.aer.ad, 2 PUFF IH BID for COPD, #10.2 GM 5 Refills 03/13/19 Metoprolol Tartrate (METOPROLOL TARTRATE) 50 Mg Tablet, 1 TAB PO BID for hypertension, #60 TAB 5 Refills 03/12/19 SHANI HALE MD Mar 17, 2019 13:58
--- NOTE | 2019-03-17 14:30 | NUR ---
Discharge Note: LEISA HAMILTON OLDEN Discharge instructions and discharge home medications reviewed with Patient and a copy given. All questions have been answered and understanding verbalized. The following instructions and handouts were given: information about cellulitis and follow up appointments, medications. Discontinued lines and drains: no IV line present. Patient discharged to home with home health with brother, patient ambulated to discharge vehicle with rolling walker.
== END 2019-03-17 14:30 | disposition home health service (06) | DRG 872 ==
LOC: ER 23:36 → 4 NORTH 03-12 01:28
PROVIDERS: ADMIT Internal Medicine; ATTEND Internal Medicine
DX: A41.9 Sepsis, unspecified organism (principal); L03.116 Cellulitis of left lower limb; L97.229 Non-pressure chronic ulcer of left calf with unspecified severity; E87.6 Hypokalemia; I25.10 Atherosclerotic heart disease of native coronary artery without angina pectoris; I10 Essential (primary) hypertension; E78.00 Pure hypercholesterolemia, unspecified; E05.90 Thyrotoxicosis, unspecified without thyrotoxic crisis or storm; F43.10 Post-traumatic stress disorder, unspecified; E66.9 Obesity, unspecified; M19.90 Unspecified osteoarthritis, unspecified site; E78.5 Hyperlipidemia, unspecified; Z95.5 Presence of coronary angioplasty implant and graft; Z90.49 Acquired absence of other specified parts of digestive tract; I25.2 Old myocardial infarction; Z68.31 Body mass index [BMI] 31.0-31.9, adult
CPT/HCPCS: 36415; 80048; 80053; 80202; 83880; 85025; 85610; 85730; 87040; 87071; 87075; 93971; 94640; 94760; 96365; 96375; J1650; J2270; J2543; J3370; J7040; J7050; J7613; J7626; Q0163; 97110; 97116; 99285-25; J7030

== ENCOUNTER 2020-05-10 17:36 | Inpatient (IN) | payer MEDICARE ==
[~2020-05-10] VITALS: Ht 172.7 cm; Wt 76.9 kg
[~2020-05-10 17:36] MED LIST: ACET500T68 PO; AMOX1TAB11 PO; APIX5TAB PO; ASCO500T4 PO; ASPI-886 PO; BISA5TAB4 PO; BUDE10.22 IH; CIPR250T30 PO; DIGO125T3 PO; FURO-68 PO; IPRA3AMP29 NEB; LACT1CAP19 PO; METO50TA6 PO; MULT1TAB90 PO; OXYC1TAB15 PO; PANT40TA77 PO; POLY17PO28 PO; POTA20TA4 PO; TEMA7.5C2 PO; VANC500V PO
[2020-05-10] MEDS ORDERED: IV NORMAL SALINE 1000ML BAG 1,000 ML IV SCH (18:16)
--- NOTE | 2020-05-10 18:24 | PHYS DOC ---
Past Medical History Past Medical History: CAD, CHF, High Cholesterol, Hypertension, Hyperthyroid, MT Additional Past Medical Histor: PTSD Past Surgical History: Appendectomy, Tonsillectomy, Other Additional Past Surgical Histo: Exp. Lap Smoking Status: Current Every Day Smoker Additional Information: 1 PK/DAY Alcohol Use: None Drug Use: None General Adult EDM: Chief Complaint: ABDOMINAL PAIN HPI: HPI: Patient is a 74 year old male who presents with a chief complaint of 2 days of abdominal pain. Patient states the pain began Friday gradually is gotten worse. Pain is worse with palpation and movement. Patient thinks is felt may be blocked because he is having "snot" coming out of his bowels. Patient had an episode yesterday where he felt hot but did not take his temperature. Patient has any chills cough or shortness of breath. Pain is moderate in severity and worse with palpation or movement. Patient had some nausea vomiting yesterday as well. Review of Systems: Review of Systems: Constitutional: Denies measurable fever or chills. [] Eyes: Denies change in visual acuity. [] HENT: Denies nasal congestion or sore throat. [] Respiratory: Denies cough or shortness of breath. [] Cardiovascular: Denies chest pain or edema. [] GI: Complains abdominal pain nausea vomiting : Denies dysuria. [] Musculoskeletal: Denies back pain or joint pain. [] Integument: Denies rash. [] Neurologic: Denies headache, focal weakness or sensory changes. [] Endocrine: Denies polyuria or polydipsia. [] Lymphatic: Denies swollen glands. [] Psychiatric: Denies depression or anxiety. [] Heart Score: Risk Factors: Risk Factors: DM, Current or recent (<one month) smoker, HTN, HLP, family history of CAD, obesity. Risk Scores: Score 0 - 3: 2.5% MACE over next 6 weeks - Discharge Home Score 4 - 6: 20.3% MACE over next 6 weeks - Admit for Clinical Observation Score 7 - 10: 72.7% MACE over next 6 weeks - Early Invasive Strategies Current Medications: Current Medications Medications (Trade) Dose Ordered Sig/Marcio Start Time Stop Time Status Last Admin Dose Admin Morphine Sulfate (Morphine Sulfate) 2 mg PRN Q15MIN PRN 05/10/20 18:30 05/11/20 18:29 Ondansetron HCl (Zofran) 4 mg 1X ONCE 05/10/20 18:30 05/10/20 18:31 Sodium Chloride 1,000 ml @ 1,000 mls/hr Q1H 05/10/20 18:16 05/10/20 19:15 Allergies: Allergies: Allergies Coded Allergies Type Severity Reaction Last Updated Verified No Known Drug Allergies 03/12/19 No Physical Exam: PE: Constitutional: Well developed, well nourished, no acute distress, non-toxic appearance. [] HENT: Normocephalic, atraumatic, bilateral external ears normal, no trismus nose normal. [] Eyes: PERRLA, EOMI, conjunctiva normal, no discharge. [] Neck: Normal range of motion, no tenderness, supple, no stridor. [] Cardiovascular: Mildly tachycardic with a IRregular pulse peripheral pulses intact Lungs & Thorax: Bilateral breath sounds clear, no respiratory distress Abdomen: Mildly distended with diffuse tenderness without guarding or rebound no pulsatile masses, hypoactive bowel sounds Skin: Warm, dry, no erythema, no rash. [] Back: No tenderness, no CVA tenderness. [] Extremities: No tenderness, no cyanosis, no clubbing, ROM intact, no edema. [] Neurologic: Alert and oriented X 3, normal motor function, normal sensory function, no focal deficits noted. [] Psychologic: Affect normal, judgement normal, mood normal. [] Current Patient Data: Labs: Laboratory Tests Test 05/10/20 18:41 White Blood Count 14.3 x10^3/uL Red Blood Count 5.30 x10^6/uL Hemoglobin 16.4 g/dL Hematocrit 47.1 % Mean Corpuscular Volume 89 fL Mean Corpuscular Hemoglobin 31 pg Mean Corpuscular Hemoglobin Concent 35 g/dL Red Cell Distribution Width 15.9 % Platelet Count 217 x10^3/uL Neutrophils (%) (Auto) 81 % Lymphocytes (%) (Auto) 9 % Monocytes (%) (Auto) 9 % Eosinophils (%) (Auto) 1 % Basophils (%) (Auto) 1 % Neutrophils # (Auto) 11.5 x10^3/uL Lymphocytes # (Auto) 1.3 x10^3/uL Monocytes # (Auto) 1.3 x10^3/uL Eosinophils # (Auto) 0.1 x10^3/uL Basophils # (Auto) 0.1 x10^3/uL Prothrombin Time 13.4 SEC Prothromb Time International Ratio 1.1 Activated Partial Thromboplast Time 30 SEC Sodium Level 139 mmol/L Potassium Level 2.4 mmol/L Chloride Level 100 mmol/L Carbon Dioxide Level 32 mmol/L Anion Gap 7 Blood Urea Nitrogen 17 mg/dL Creatinine 1.3 mg/dL Estimated GFR (Cockcroft-Gault) 54.1 BUN/Creatinine Ratio 13 Glucose Level 123 mg/dL Lactic Acid Level 1.6 mmol/L Calcium Level 9.1 mg/dL Magnesium Level 2.1 mg/dL Total Bilirubin 1.1 mg/dL Aspartate Amino Transf (AST/SGOT) 14 U/L Alanine Aminotransferase (ALT/SGPT) 13 U/L Alkaline Phosphatase 119 U/L Total Protein 7.4 g/dL Albumin 3.6 g/dL Albumin/Globulin Ratio 0.9 Lipase 40 U/L Current Medications Medications (Trade) Dose Ordered Sig/Marcio Route PRN Reason Start Time Stop Time Status Last Admin Dose Admin Morphine Sulfate (Morphine Sulfate) 2 mg PRN Q15MIN PRN IV/SQ PAIN GREATER THAN 3/10 05/10/20 18:30 05/11/20 18:29 05/10/20 18:55 Sodium Chloride 1,000 ml @ 1,000 mls/hr Q1H IV 05/10/20 18:16 05/10/20 19:15 DC 05/10/20 18:54 Ondansetron HCl (Zofran) 4 mg 1X ONCE IVP 05/10/20 18:30 05/10/20 18:31 DC 05/10/20 18:54 Iohexol (Omnipaque 300 Mg/ml) 60 ml 1X ONCE IV 05/10/20 20:00 05/10/20 20:01 DC 05/10/20 19:46 Info (CONTRAST GIVEN -- Rx MONITORING) 1 each PRN DAILY PRN MC SEE COMMENTS 05/10/20 19:45 05/12/20 19:44 Magnesium Sulfate 50 ml @ 25 mls/hr 1X ONCE IV 05/10/20 20:00 05/10/20 21:59 Potassium Chloride/Water 100 ml @ 50 mls/hr 1X ONCE IV 05/10/20 20:00 05/10/20 21:59 Potassium Chloride (Klor-Con) 40 meq 1X ONCE PO 05/10/20 20:00 05/10/20 20:01 DC Vital Signs: Vital Signs Date Time Temp Pulse Resp B/P (MAP) Pulse Ox O2 Delivery O2 Flow Rate FiO2 05/10/20 17:48 98.5 79 20 134/83 (100) 95 Room Air 98.5 EKG: EKG: [] EKG interpreted by me multifocal atrial tachycardia with a rate of 110 normal axis PACs nonspecific ST changes Radiology/Procedures: Radiology/Procedures: [][facility] [address] [place] [address] IMAGING REPORT Signed PATIENT: PRESTON HAMILTON ACCOUNT: [id number] : 1945 LOCATION: ER AGE: 74 SEX: M EXAM STATUS: REG ER ORD. PHYSICIAN: SHELIA CHOU MD REASON: abd pain, constipation PROCEDURE: CT ABD PELV W/ IV CONTRST ONLY EXAM: CT ABDOMEN/PELVIS WITH CONTRAST. HISTORY: Abdominal pain and constipation. TECHNIQUE: Computed tomography of the abdomen and pelvis was performed after the intravenous administration of iodinated contrast. One or more of the following individualized dose reduction techniques were utilized for this examination: 1. Automated exposure control. 2. Adjustment of the mA and/or kV according to patient size. 3. Use of iterative reconstruction technique. COMPARISON: 03/30/2019. FINDINGS: Lung windows through the visualized portions of the bases reveal mild atelectasis. There is a trace left pleural effusion. There are atherosclerotic calcifications of the coronary arteries. Bone windows reveal no suspicious lesions. There is severe osteoarthritis of the left hip with volume loss of the left femoral head. The spleen is mildly enlarged at 13.8 cm. A 5 mm hypoattenuating focus in hepatic segment 6 is stable and likely reflects a benign cyst or hemangioma. The pancreas, adrenal glands, gallbladder and kidneys are unremarkable. Prominent left external iliac lymph nodes measure up to 19 x 13 mm. No clearly pathologically enlarged mesenteric or retroperitoneal nodes are seen. There is volvulus of the sigmoid colon. The volvulized portion is mildly distended. There is edema within the associated mesentery consistent with venous compression. The upstream colon is not clearly dilated. The rectum demonstrates wall thickening. The stomach and small bowel are moderately dilated with a transition point at the volvulized mesentery. The distal small bowel is decompressed. There is a small amount of ascites. There is no drainable collection. IMPRESSION: 1. Sigmoid volvulus. The volvulized mesentery also results in small bowel obstruction. 2. Wall thickening of the rectum and sigmoid colon is consistent with a component of colitis. 3. Mild splenomegaly. 4. Prominent external iliac lymph nodes are nonspecific. Correlate for lower extremity inflammation. These findings were called to Dr. Chou by Noé Lopez on 05/10/2020 at 8:56 PM. FOR INTERNAL CODING PURPOSES RESULT CODE: (C) Electronically signed by: Melisa Lopez MD (05/10/2020 8:56 PM) [facility] DICTATED and SIGNED BY: JOHN LOPEZ MD DATE: 05/10/202055 Course & Med Decision Making: Course & Med Decision Making Pertinent Labs and Imaging studies reviewed. (See chart for details) [] 71-year-old male presents with abdominal pain and nausea vomiting. CT shows a sigmoid volvulus with small bowel obstruction. An NG tube is been ordered. I discussed the case with Dr. Canales who suggested following GI and he will follow in the hospital as well as bowel decompression. Patient will be admitted by Dr. Hanna. Patient's hypokalemia has been addressed. Patient has elevated white count and given a dose of antibiotics. Dragon Disclaimer: Devang Disclaimer: This electronic medical record was generated, in whole or in part, using a voice recognition dictation system. Departure Departure Impression: Primary Impression: Sigmoid volvulus Additional Impressions: Small bowel obstruction Abdominal pain Hypokalemia Disposition: ADMITTED INPATIENT Admitting Physician: YUNIOR NORMAN) Condition: STABLE Referrals: UNKNOWN PCP NAME (PCP) Justicifation of Admission Dx: Justifications for Admission: Justification of Admission Dx: Yes (SBO, VOLVULUS, HYPOKALEMIA) SHELIA CHOU MD May 10, 2020 18:24
[2020-05-10] MEDS ORDERED: MORPHINE SULFATE 2 MG/ML VIAL. IV/SQ PRN (18:30)
[2020-05-10] MEDS ORDERED: ONDANSETRON PF 4 MG/2 ML VIAL. IVP ONE (18:30)
[2020-05-10 18:50] LABS: BASO # 0.1 x10^3/uL (0.0-0.2); BASO % 1 % (0-3); EOS # 0.1 x10^3/uL (0.0-0.7); EOS % 1 % (0-3); HEMATOCRIT 47.1 % (39.0-53.0); HEMOGLOBIN 16.4 g/dL (13.0-17.5); LYMPH # 1.3 x10^3/uL (1.0-4.8); LYMPH % 9 % (24-48); MEAN CORPUSCULAR HEMOGLOBIN 31 pg (25-35); MEAN CORPUSCULAR HGB CONC 35 g/dL (31-37); MEAN CORPUSCULAR VOLUME 89 fL (79-100); MONO # 1.3 x10^3/uL (0.0-1.1); MONO % 9 % (0-9); NEUT # 11.5 x10^3/uL (1.8-7.7); NEUT % 81 % (31-73); PLATELET COUNT 217 x10^3/uL (140-400); RED CELL DISTRIBUTION WIDTH 15.9 % (11.5-14.5); WHITE BLOOD COUNT 14.3 x10^3/uL (4.0-11.0)
[2020-05-10 19:03] LABS: PROTHROMBIN TIME PATIENT 13.4 SEC (11.7-14.0)
[2020-05-10 19:13] LABS: ALBUMIN 3.6 g/dL (3.4-5.0); ALBUMIN/GLOBULIN RATIO 0.9 (1.0-1.7); CALCIUM 9.1 mg/dL (8.5-10.1); CREATININE 1.3 mg/dL (0.7-1.3); GFR 54.1; TOTAL BILIRUBIN 1.1 mg/dL (0.2-1.0); TOTAL PROTEIN 7.4 g/dL (6.4-8.2)
[2020-05-10 19:16] LABS: POTASSIUM 2.4 mmol/L (3.5-5.1)
[2020-05-10] MEDS ORDERED: CONTRAST GIVEN. MC PRN (19:45)
[2020-05-10] MEDS ORDERED: POTASSIUM CHLORIDE 20MEQ 100 ML IV ONE (20:00)
[2020-05-10] MEDS ORDERED: MAGNESIUM SULFATE 2GM 50 ML IV ONE (20:00)
[2020-05-10] MEDS ORDERED: POTASSIUM CHLORIDE 20 MEQ TABLET.ER. PO ONE (20:00)
[2020-05-10] MEDS ORDERED: IOHEXOL 300 MG/ML 100ML VIAL. IV ONE (20:00)
--- NOTE | 2020-05-10 20:59 | RAD ---
EXAM: CT ABDOMEN/PELVIS WITH CONTRAST. HISTORY: Abdominal pain and constipation. TECHNIQUE: Computed tomography of the abdomen and pelvis was performed after the intravenous administration of iodinated contrast. One or more of the following individualized dose reduction techniques were utilized for this examination: 1. Automated exposure control. 2. Adjustment of the mA and/or kV according to patient size. 3. Use of iterative reconstruction technique. COMPARISON: 03/30/2019. FINDINGS: Lung windows through the visualized portions of the bases reveal mild atelectasis. There is a trace left pleural effusion. There are atherosclerotic calcifications of the coronary arteries. Bone windows reveal no suspicious lesions. There is severe osteoarthritis of the left hip with volume loss of the left femoral head. The spleen is mildly enlarged at 13.8 cm. A 5 mm hypoattenuating focus in hepatic segment 6 is stable and likely reflects a benign cyst or hemangioma. The pancreas, adrenal glands, gallbladder and kidneys are unremarkable. Prominent left external iliac lymph nodes measure up to 19 x 13 mm. No clearly pathologically enlarged mesenteric or retroperitoneal nodes are seen. There is volvulus of the sigmoid colon. The volvulized portion is mildly distended. There is edema within the associated mesentery consistent with venous compression. The upstream colon is not clearly dilated. The rectum demonstrates wall thickening. The stomach and small bowel are moderately dilated with a transition point at the volvulized mesentery. The distal small bowel is decompressed. There is a small amount of ascites. There is no drainable collection. IMPRESSION: 1. Sigmoid volvulus. The volvulized mesentery also results in small bowel obstruction. 2. Wall thickening of the rectum and sigmoid colon is consistent with a component of colitis. 3. Mild splenomegaly. 4. Prominent external iliac lymph nodes are nonspecific. Correlate for lower extremity inflammation. These findings were called to Dr. Jacobson by Noé Lopez on 05/10/2020 at 8:56 PM. FOR INTERNAL CODING PURPOSES RESULT CODE: (C) Electronically signed by: Melisa Lopez MD (05/10/2020 8:56 PM) [facility]
[2020-05-10] MEDS ORDERED: PIPERACILLIN/TAZOBACTAM 3.375 GM in IV NORMAL SALINE 50ML 50 ML IV ONE (21:00)
[2020-05-10] MEDS ORDERED: ONDANSETRON PF 4 MG/2 ML VIAL. IV PRN (21:00)
[2020-05-10] MEDS ORDERED: POTASSIUM CL 40MEQ D5-0.45NACL 1,000 ML IV ONE (21:30)
--- NOTE | 2020-05-10 22:46 | RAD ---
EXAM: CHEST ONE VIEW. HISTORY: Nasogastric tube placement. COMPARISON: 08/26/2019. FINDINGS: A frontal view of the chest is obtained. A nasogastric tube has its tip below the inferior margin of the view. Mild basilar predominant interstitial infiltrates are less severe than on the prior study. There is no pneumothorax or clear pleural effusion. The heart is not enlarged. IMPRESSION: 1. Mild interstitial infiltrates. Correlate for mild pulmonary edema. Electronically signed by: Melisa Lopez MD (05/10/2020 10:43 PM) [facility]
--- NOTE | 2020-05-10 22:52 | EKG ---
[facility] [address] [place] [address] Test Date: 2020-05-10 Test Time: 18:31:33 Pat Name: PRESTON HAMILTON Department: Room: Gender: M Lead Radiation Therapist: : 1945 Requested By: SHELIA CHOU Order Number: [id number] Reading MD: Measurements Intervals [place] Rate: 110 P: IA: QRS: 53 QRSD: 92 T: 24 QT: 370 QTc: 507 Interpretive Statements IRREGULAR RHYTHM, NO P-WAVE FOUND OTHERWISE NORMAL ECG RI6.02 No previous ECG available for comparison
[2020-05-10] MEDS ORDERED: HYDROmorphone 2 MG/ML VIAL IV PRN ×2 (23:00)
[2020-05-10] MEDS: IV NORMAL SALINE 1000ML BAG 1,000 ML IV SCH (23:15)
[2020-05-10 23:41] LABS: BILIRUBIN,URINE NEGATIVE (NEG); CLARITY,URINE CLEAR; COLOR,URINE YELLOW; NITRITE,URINE NEGATIVE (NEG); PROTEIN,URINE NEGATIVE (NEG-TRACE); UROBILINOGEN,URINE 0.2 mg/dL (0.2 mg/dL)
[2020-05-10 23:46] LABS: SQUAMOUS EPITHELIAL CELL,UR FEW /LPF
[2020-05-10 23:47] LABS: BACTERIA,URINE 0 /HPF (0-FEW)
[2020-05-10 23:49] LABS: WBC,URINE RARE /HPF (0-4)
[2020-05-10 23:50] LABS: HYALINE CASTS, URINE OCCASIONAL /HPF
[2020-05-11 01:01] VITALS: BP 141/69
[2020-05-11 03:28] VITALS: BP 158/75
[2020-05-11] MEDS: PIPERACILLIN/TAZOBACTAM 3.375 GM in IV NORMAL SALINE 50ML 50 ML IV SCH ×3 (05:16→17:25)
--- NOTE | 2020-05-11 05:30 | NUR ---
Walked into pt room and pt had pulled out NG tube. New [address] Parra had just placed an order for a KUB so it was changed to stat for NG tube placement.
[2020-05-11 06:19] LABS: BASO # 0.2 x10^3/uL (0.0-0.2); BASO % 1 % (0-3); EOS # 0.5 x10^3/uL (0.0-0.7); EOS % 4 % (0-3); HEMATOCRIT 43.4 % (39.0-53.0); LYMPH # 1.7 x10^3/uL (1.0-4.8); LYMPH % 14 % (24-48); MEAN CORPUSCULAR HEMOGLOBIN 31 pg (25-35); MEAN CORPUSCULAR HGB CONC 35 g/dL (31-37); MEAN CORPUSCULAR VOLUME 90 fL (79-100); MONO # 1.3 x10^3/uL (0.0-1.1); MONO % 10 % (0-9); NEUT % 71 % (31-73); PLATELET COUNT 191 x10^3/uL (140-400); RED BLOOD COUNT 4.83 x10^6/uL (4.30-5.70); RED CELL DISTRIBUTION WIDTH 15.8 % (11.5-14.5); WHITE BLOOD COUNT 12.6 x10^3/uL (4.0-11.0)
[2020-05-11 06:44] LABS: CALCIUM 8.5 mg/dL (8.5-10.1); CREATININE 1.2 mg/dL (0.7-1.3); GFR 59.3
[2020-05-11 06:47] LABS: POTASSIUM 2.4 mmol/L (3.5-5.1)
[2020-05-11 07:00] VITALS: BP 156/98
--- NOTE | 2020-05-11 07:00 | NUR ---
Notified of K+ 2.4. Will notify doctor.
[2020-05-11] MEDS: IV NORMAL SALINE 1000ML BAG 1,000 ML IV SCH (07:14)
[2020-05-11] MEDS ORDERED: POTASSIUM CL 40MEQ D5-0.45NACL 1,000 ML IV PRN (08:15)
--- NOTE | 2020-05-11 08:23 | PDOC1 ---
History and Physical Date of Admission Date of Admission DATE: 05/11/20 TIME: 08:23 Identification/Chief Complaint Chief Complaint Abdominal pain Source Source: Patient History of Present Illness History of Present Illness Patient is a 74-year-old male who presents with worsening abdominal pain for the past 2 days. He describes aching abdominal pain, 10/10 aggravated by movement. He admits to some associated subjective fevers, nausea, and vomiting x 1. He did have some relief in his symptoms with vomiting. He also admits to some associated decreased bowel movements. CT abdomen pelvis on admission showed sigmoid volvulus. He denies any bloody vomit or bloody stools. Past Medical History Cardiovascular: CAD, HTN, Hyperlipidemia Pulmonary: COPD CENTRAL NERVOUS SYSTEM: Other GI: Other Heme/Onc: No pertinent hx Hepatobiliary: No pertinent hx Psych: Anxiety, Other Musculoskeletal: Osteoarthritis Rheumatologic: No pertinent hx Infectious disease: No pertinent hx, Other Renal/: No pertinent hx Endocrine: No pertinent hx Past Surgical History Past Surgical History: Appendectomy, Tonsillectomy, Other Family History Family History: High Cholestrol, Obesity Social History Smoke: 1 pack per day ALCOHOL: none Drugs: None, Other Current Problem List Problem List Problems Medical Problems: (1) Abdominal pain Status: Acute (2) Sigmoid volvulus Status: Acute (3) Small bowel obstruction Status: Acute Current Medications Current Medications Current Medications Morphine Sulfate (Morphine Sulfate) 2 mg PRN Q15MIN PRN IV/SQ PAIN GREATER THAN 3/10 Last administered on 05/10/20at 18:55; Start 05/10/20 at 18:30; Stop 05/11/20 at 18:29 Sodium Chloride 1,000 ml @ 1,000 mls/hr Q1H IV Last administered on 05/10/20at 18:54; Start 05/10/20 at 18:16; Stop 05/10/20 at 19:15; Status DC Ondansetron HCl (Zofran) 4 mg 1X ONCE IVP Last administered on 05/10/20at 18:54; Start 05/10/20 at 18:30; Stop 05/10/20 at 18:31; Status DC Iohexol (Omnipaque 300 Mg/ml) 60 ml 1X ONCE IV Last administered on 05/10/20at 19:46; Start 05/10/20 at 20:00; Stop 05/10/20 at 20:01; Status DC Info (CONTRAST GIVEN -- Rx MONITORING) 1 each PRN DAILY PRN MC SEE COMMENTS; Start 05/10/20 at 19:45; Stop 05/12/20 at 19:44 Magnesium Sulfate 50 ml @ 25 mls/hr 1X ONCE IV Last administered on 05/10/20at 20:00; Start 05/10/20 at 20:00; Stop 05/10/20 at 21:59; Status DC Potassium Chloride/Water 100 ml @ 50 mls/hr 1X ONCE IV Last administered on 05/10/20at 21:21; Start 05/10/20 at 20:00; Stop 05/10/20 at 21:59; Status DC Potassium Chloride (Klor-Con) 40 meq 1X ONCE PO ; Start 05/10/20 at 20:00; Stop 05/10/20 at 20:01; Status DC Piperacillin Sod/ Tazobactam Sod 3.375 gm/Sodium Chloride 50 ml @ 100 mls/hr 1X ONCE IV Last administered on 05/10/20at 21:21; Start 05/10/20 at 21:00; Stop 05/10/20 at 21:29; Status DC Ondansetron HCl (Zofran) 4 mg PRN Q8HRS PRN IV NAUSEA/VOMITING; Start 05/10/20 at 21:00; Stop 05/11/20 at 20:59 Potassium Chloride/Dextrose/ Sod Cl 1,000 ml @ 125 mls/hr 1X ONCE IV Last administered on 05/10/20at 22:01; Start 05/10/20 at 21:30; Stop 05/11/20 at 05:29; Status DC Lorazepam (Ativan Inj) 1 mg 1X ONCE IVP Last administered on 05/10/20at 22:02; Start 05/10/20 at 22:00; Stop 05/10/20 at 22:01; Status DC Piperacillin Sod/ Tazobactam Sod 3.375 gm/Sodium Chloride 50 ml @ 100 mls/hr Q6HRS IV Last administered on 05/11/20at 05:16; Start 05/11/20 at 06:00 Ondansetron HCl (Zofran) 4 mg PRN Q6HRS PRN IVP NAUSEA/VOMITING; Start 05/10/20 at 23:00 Morphine Sulfate (Morphine Sulfate) 2 mg PRN Q1HR PRN IV PAIN; Start 05/10/20 at 23:00 Hydromorphone HCl (Dilaudid) 0.2 mg PRN Q1HR PRN IV PAIN; Start 05/10/20 at 23:00 Hydromorphone HCl (Dilaudid) 0.4 mg PRN Q1HR PRN IV PAIN; Start 05/10/20 at 23:00 Heparin Sodium (Porcine) (Heparin Sodium) 5,000 unit Q12HR SQ ; Start 05/11/20 at 09:00 Sodium Chloride 1,000 ml @ 100 mls/hr Q10H IV Last administered on 05/11/20at 07:14; Start 05/10/20 at 23:15 Influenza Virus Vaccine Quadrival (Fluzone Quad Syringe) 0.5 ml ONCE ONCE VAX IM ; Start 05/11/20 at 09:00; Stop 05/11/20 at 09:01 Potassium Chloride/Dextrose/ Sod Cl 1,000 ml @ 75 mls/hr [id number] PRN IV .; Start 05/11/20 at 08:15 Active Scripts Active Polyethylene Glycol 3350 17 Gm Powd.pack 17 Gm PO PRN DAILY PRN 28 Days Bisacodyl 5 Mg Tablet. 5 Mg PO PRN DAILY PRN 14 Days Acetaminophen 500 Mg Tablet 500 Mg PO PRN Q6HRS PRN 30 Days Aspirin Ec (Aspirin) 81 Mg Tablet. 81 Mg PO DAILYWBKFT 30 Days Digoxin 125 Mcg Tablet 125 Mcg PO DAILY 30 Days Eliquis (Apixaban) 5 Mg Tablet 5 Mg PO BID 30 Days Duoneb 0.5-3(2.5) Mg/3 Ml (Albuterol/Ipratropium) 3 Ml Ampul.neb 3 Ml NEB RTQID 30 Days Vitamin C (Ascorbic Acid) 500 Mg Tablet 500 Mg PO DAILY 30 Days Thera-M Tablet (Multivits,Ca,Minerals/Iron/Fa) 1 Each Tablet 1 Tab PO DAILY 30 Days Pantoprazole Sodium (Pantoprazole Sodium) 40 Mg Tablet. 40 Mg PO DAILYAC 30 Days Klor-Con M20 (Potassium Chloride) 20 Meq Tab.er.prt 20 Meq PO DAILYWBKFT 30 Days Percocet 5-325 Mg Tablet (Oxycodone/Acetaminophen) 1 Each Tablet 1 Tab PO PRN Q6HRS PRN 6 Days Reported Symbicort 80-4.5 Mcg Inhaler (Budesonide/Formoterol Fumarate) 10.2 Gm Hfa.aer.ad 2 Puff IH BID Metoprolol Tartrate 50 Mg Tablet 1 Tab PO BID Allergies Allergies: Coded Allergies: No Known Drug Allergies (Unverified , 05/11/20) ROS Review of System GENERAL: Fever. No history of weight change, weakness. SKIN: No bruising, hair changes or rashes. EYES: No blurred, double or loss of vision. NOSE AND THROAT: No history of nosebleeds, hoarseness or sore throat. HEART: Denies chest pain, denies palpitations. LUNGS: Denies cough, hemoptysis, wheezing or shortness of breath. GASTROINTESTINAL: Abdominal pain, nausea, vomiting. GENITOURINARY: Denies dysuria, frequency, urgency, hematuria. NEUROLOGIC: Denies history of numbness, tingling, tremor or weakness. PSYCHIATRIC: Denies anxiety, denies depression. ENDOCRINE: No history of heat or cold intolerance, polyuria or polydipsia. EXTREMITIES: Denies muscle weakness, joint pain, pain on walking or stiffness. Physical Exam Physical Exam General: Alert, Oriented X3, Cooperative, No acute distress HEENT: NG tube in place draining dark bilious fluid. PERRLA, EOMI Lungs: Clear to auscultation, Normal air movement Heart: RRR, no murmurs Cardiovascular: S1, S2 Abdomen: Abdomen tense, distended, decreased bowel sounds Extremities: No clubbing, No cyanosis Skin: No rashes, No significant lesion Neuro: Normal speech, Normal tone, Sensation intact Psych/Mental Status: Mental status NL, Mood NL Vitals Vitals Vital Signs Date Time Temp Pulse Resp B/P (MAP) Pulse Ox O2 Delivery O2 Flow Rate FiO2 05/11/20 03:28 98.4 105 22 158/75 (102) 94 Room Air 98.4 05/11/20 00:48 2.0 Labs Labs Laboratory Tests Test 05/10/20 18:41 05/10/20 22:14 05/10/20 23:35 05/11/20 04:45 White Blood Count 14.3 x10^3/uL (4.0-11.0) 12.6 x10^3/uL (4.0-11.0) Red Blood Count 5.30 x10^6/uL (4.30-5.70) 4.83 x10^6/uL (4.30-5.70) Hemoglobin 16.4 g/dL (13.0-17.5) 15.0 g/dL (13.0-17.5) Hematocrit 47.1 % (39.0-53.0) 43.4 % (39.0-53.0) Mean Corpuscular Volume 89 fL (79-100) 90 fL (79-100) Mean Corpuscular Hemoglobin 31 pg (25-35) 31 pg (25-35) Mean Corpuscular Hemoglobin Concent 35 g/dL (31-37) 35 g/dL (31-37) Red Cell Distribution Width 15.9 % (11.5-14.5) 15.8 % (11.5-14.5) Platelet Count 217 x10^3/uL (140-400) 191 x10^3/uL (140-400) Neutrophils (%) (Auto) 81 % (31-73) 71 % (31-73) Lymphocytes (%) (Auto) 9 % (24-48) 14 % (24-48) Monocytes (%) (Auto) 9 % (0-9) 10 % (0-9) Eosinophils (%) (Auto) 1 % (0-3) 4 % (0-3) Basophils (%) (Auto) 1 % (0-3) 1 % (0-3) Neutrophils # (Auto) 11.5 x10^3/uL (1.8-7.7) 9.0 x10^3/uL (1.8-7.7) Lymphocytes # (Auto) 1.3 x10^3/uL (1.0-4.8) 1.7 x10^3/uL (1.0-4.8) Monocytes # (Auto) 1.3 x10^3/uL (0.0-1.1) 1.3 x10^3/uL (0.0-1.1) Eosinophils # (Auto) 0.1 x10^3/uL (0.0-0.7) 0.5 x10^3/uL (0.0-0.7) Basophils # (Auto) 0.1 x10^3/uL (0.0-0.2) 0.2 x10^3/uL (0.0-0.2) Prothrombin Time 13.4 SEC (11.7-14.0) Prothromb Time International Ratio 1.1 (0.8-1.1) Activated Partial Thromboplast Time 30 SEC (24-38) Sodium Level 139 mmol/L (136-145) 142 mmol/L (136-145) Potassium Level 2.4 mmol/L (3.5-5.1) 2.4 mmol/L (3.5-5.1) Chloride Level 100 mmol/L (98-107) 103 mmol/L (98-107) Carbon Dioxide Level 32 mmol/L (21-32) 30 mmol/L (21-32) Anion Gap 7 (6-14) 9 (6-14) Blood Urea Nitrogen 17 mg/dL (8-26) 15 mg/dL (8-26) Creatinine 1.3 mg/dL (0.7-1.3) 1.2 mg/dL (0.7-1.3) Estimated GFR (Cockcroft-Gault) 54.1 59.3 BUN/Creatinine Ratio 13 (6-20) Glucose Level 123 mg/dL (70-99) 113 mg/dL (70-99) Lactic Acid Level 1.6 mmol/L (0.4-2.0) Calcium Level 9.1 mg/dL (8.5-10.1) 8.5 mg/dL (8.5-10.1) Magnesium Level 2.1 mg/dL (1.8-2.4) Total Bilirubin 1.1 mg/dL (0.2-1.0) Aspartate Amino Transf (AST/SGOT) 14 U/L (15-37) Alanine Aminotransferase (ALT/SGPT) 13 U/L (16-63) Alkaline Phosphatase 119 U/L (46-116) Total Protein 7.4 g/dL (6.4-8.2) Albumin 3.6 g/dL (3.4-5.0) Albumin/Globulin Ratio 0.9 (1.0-1.7) Lipase 40 U/L (73-393) SARS-CoV-2 Antigen (Rapid) Negative (NEGATIVE) Urine Collection Type Unknown Urine Color Yellow Urine Clarity Clear Urine pH 6.0 (<5.0-8.0) Urine Specific [place] >=1.030 (1.000-1.030) Urine Protein Negative mg/dL (NEG-TRACE) Urine Glucose (UA) Negative mg/dL (NEG) Urine Ketones (Stick) Negative mg/dL (NEG) Urine Blood Negative (NEG) Urine Nitrite Negative (NEG) Urine Bilirubin Negative (NEG) Urine Urobilinogen Dipstick 0.2 mg/dL (0.2 mg/dL) Urine Leukocyte Esterase Negative (NEG) Urine RBC 1-2 /HPF (0-2) Urine WBC Rare /HPF (0-4) Urine Squamous Epithelial Cells Few /LPF Urine Bacteria 0 /HPF (0-FEW) Urine Hyaline Casts Occasional /HPF Urine Mucus Slight /LPF Laboratory Tests Test 05/10/20 18:41 05/10/20 22:14 05/10/20 23:35 05/11/20 04:45 White Blood Count 14.3 x10^3/uL (4.0-11.0) 12.6 x10^3/uL (4.0-11.0) Red Blood Count 5.30 x10^6/uL (4.30-5.70) 4.83 x10^6/uL (4.30-5.70) Hemoglobin 16.4 g/dL (13.0-17.5) 15.0 g/dL (13.0-17.5) Hematocrit 47.1 % (39.0-53.0) 43.4 % (39.0-53.0) Mean Corpuscular Volume 89 fL (79-100) 90 fL (79-100) Mean Corpuscular Hemoglobin 31 pg (25-35) 31 pg (25-35) Mean Corpuscular Hemoglobin Concent 35 g/dL (31-37) 35 g/dL (31-37) Red Cell Distribution Width 15.9 % (11.5-14.5) 15.8 % (11.5-14.5) Platelet Count 217 x10^3/uL (140-400) 191 x10^3/uL (140-400) Neutrophils (%) (Auto) 81 % (31-73) 71 % (31-73) Lymphocytes (%) (Auto) 9 % (24-48) 14 % (24-48) Monocytes (%) (Auto) 9 % (0-9) 10 % (0-9) Eosinophils (%) (Auto) 1 % (0-3) 4 % (0-3) Basophils (%) (Auto) 1 % (0-3) 1 % (0-3) Neutrophils # (Auto) 11.5 x10^3/uL (1.8-7.7) 9.0 x10^3/uL (1.8-7.7) Lymphocytes # (Auto) 1.3 x10^3/uL (1.0-4.8) 1.7 x10^3/uL (1.0-4.8) Monocytes # (Auto) 1.3 x10^3/uL (0.0-1.1) 1.3 x10^3/uL (0.0-1.1) Eosinophils # (Auto) 0.1 x10^3/uL (0.0-0.7) 0.5 x10^3/uL (0.0-0.7) Basophils # (Auto) 0.1 x10^3/uL (0.0-0.2) 0.2 x10^3/uL (0.0-0.2) Prothrombin Time 13.4 SEC (11.7-14.0) Prothromb Time International Ratio 1.1 (0.8-1.1) Activated Partial Thromboplast Time 30 SEC (24-38) Sodium Level 139 mmol/L (136-145) 142 mmol/L (136-145) Potassium Level 2.4 mmol/L (3.5-5.1) 2.4 mmol/L (3.5-5.1) Chloride Level 100 mmol/L (98-107) 103 mmol/L (98-107) Carbon Dioxide Level 32 mmol/L (21-32) 30 mmol/L (21-32) Anion Gap 7 (6-14) 9 (6-14) Blood Urea Nitrogen 17 mg/dL (8-26) 15 mg/dL (8-26) Creatinine 1.3 mg/dL (0.7-1.3) 1.2 mg/dL (0.7-1.3) Estimated GFR (Cockcroft-Gault) 54.1 59.3 BUN/Creatinine Ratio 13 (6-20) Glucose Level 123 mg/dL (70-99) 113 mg/dL (70-99) Lactic Acid Level 1.6 mmol/L (0.4-2.0) Calcium Level 9.1 mg/dL (8.5-10.1) 8.5 mg/dL (8.5-10.1) Magnesium Level 2.1 mg/dL (1.8-2.4) Total Bilirubin 1.1 mg/dL (0.2-1.0) Aspartate Amino Transf (AST/SGOT) 14 U/L (15-37) Alanine Aminotransferase (ALT/SGPT) 13 U/L (16-63) Alkaline Phosphatase 119 U/L (46-116) Total Protein 7.4 g/dL (6.4-8.2) Albumin 3.6 g/dL (3.4-5.0) Albumin/Globulin Ratio 0.9 (1.0-1.7) Lipase 40 U/L (73-393) SARS-CoV-2 Antigen (Rapid) Negative (NEGATIVE) Urine Collection Type Unknown Urine Color Yellow Urine Clarity Clear Urine pH 6.0 (<5.0-8.0) Urine Specific [place] >=1.030 (1.000-1.030) Urine Protein Negative mg/dL (NEG-TRACE) Urine Glucose (UA) Negative mg/dL (NEG) Urine Ketones (Stick) Negative mg/dL (NEG) Urine Blood Negative (NEG) Urine Nitrite Negative (NEG) Urine Bilirubin Negative (NEG) Urine Urobilinogen Dipstick 0.2 mg/dL (0.2 mg/dL) Urine Leukocyte Esterase Negative (NEG) Urine RBC 1-2 /HPF (0-2) Urine WBC Rare /HPF (0-4) Urine Squamous Epithelial Cells Few /LPF Urine Bacteria 0 /HPF (0-FEW) Urine Hyaline Casts Occasional /HPF Urine Mucus Slight /LPF Images Images EXAM: CT ABDOMEN/PELVIS WITH CONTRAST. HISTORY: Abdominal pain and constipation. TECHNIQUE: Computed tomography of the abdomen and pelvis was performed after the intravenous administration of iodinated contrast. One or more of the following individualized dose reduction techniques were utilized for this examination: 1. Automated exposure control. 2. Adjustment of the mA and/or kV according to patient size. 3. Use of iterative reconstruction technique. COMPARISON: 03/30/2019. FINDINGS: Lung windows through the visualized portions of the bases reveal mild atelectasis. There is a trace left pleural effusion. There are atherosclerotic calcifications of the coronary arteries. Bone windows reveal no suspicious lesions. There is severe osteoarthritis of the left hip with volume loss of the left femoral head. The spleen is mildly enlarged at 13.8 cm. A 5 mm hypoattenuating focus in hepatic segment 6 is stable and likely reflects a benign cyst or hemangioma. The pancreas, adrenal glands, gallbladder and kidneys are unremarkable. Prominent left external iliac lymph nodes measure up to 19 x 13 mm. No clearly pathologically enlarged mesenteric or retroperitoneal nodes are seen. There is volvulus of the sigmoid colon. The volvulized portion is mildly distended. There is edema within the associated mesentery consistent with venous compression. The upstream colon is not clearly dilated. The rectum demonstrates wall thickening. The stomach and small bowel are moderately dilated with a transition point at the volvulized mesentery. The distal small bowel is decompressed. There is a small amount of ascites. There is no drainable collection. IMPRESSION: 1. Sigmoid volvulus. The volvulized mesentery also results in small bowel obstruction. 2. Wall thickening of the rectum and sigmoid colon is consistent with a component of colitis. 3. Mild splenomegaly. 4. Prominent external iliac lymph nodes are nonspecific. Correlate for lower extremity inflammation. VTE Prophylaxis Ordered VTE Prophylaxis Devices: No VTE Pharmacological Prophylaxi: Yes Assessment/Plan Assessment/Plan Sigmoid volvulus SBO Hypokalemia Plan: Consult GI Consult general surgery NG tube decompression Plan for flexible sigmoidoscopy today, possible sigmoid resection Serial imaging IV KCl + half-normal saline N.p.o. Pain management VTE prophylaxis Full code, patient and his brother surrogate decision maker Justifications for Admission Other Justification JOSE A BURGOS MD May 11, 2020 08:23
[2020-05-11] MEDS ORDERED: SODIUM PHOSPHATES 19/7GM 133 ML ENEMA. PR ONE (08:45)
[2020-05-11] MEDS ORDERED: FLU VACC QS 2020-21(6MOS+)/PF 0.5 ML SYRINGE. VAX IM ONE (09:00)
--- NOTE | 2020-05-11 09:08 | PDOC2 ---
KAYLI HOWARD CARD SORTER 05/11/20 0908: CONSULT Date of Consult Date of Consult DATE: 05/11/20 TIME: 08:58 Reason for Consult Reason for Consult: sigmoid volvulus Referring Physician Referring Physician: ER Identification/Chief Complaint Chief Complaint abdominal pain Source Source: Chart review, Patient History of Present Illness Reason for Visit: Worsening abdominal pain since friday. nausea, emesis and bloating. No improvement. Does have hx of xlap, appendectomy, cdiff last year asking what plan is Past Medical History Cardiovascular: CAD, HTN, Hyperlipidemia Pulmonary: COPD CENTRAL NERVOUS SYSTEM: Other GI: Other Heme/Onc: No pertinent hx Hepatobiliary: No pertinent hx Psych: Anxiety, Other Musculoskeletal: Osteoarthritis Rheumatologic: No pertinent hx Infectious disease: No pertinent hx, Other Renal/: No pertinent hx Endocrine: No pertinent hx Past Surgical History Past Surgical History: Appendectomy, Tonsillectomy, Other (xlap) Family History Family History: High Cholestrol, Obesity Social History ALCOHOL: none Drugs: Other Current Problem List Problem List Problems Medical Problems: (1) Abdominal pain Status: Acute (2) Sigmoid volvulus Status: Acute (3) Small bowel obstruction Status: Acute Current Medications Current Medications Current Medications Morphine Sulfate (Morphine Sulfate) 2 mg PRN Q15MIN PRN IV/SQ PAIN GREATER THAN 3/10 Last administered on 05/10/20at 18:55; Start 05/10/20 at 18:30; Stop at 18:29 Sodium Chloride 1,000 ml @ 1,000 mls/hr Q1H IV Last administered on 05/10/20at 18:54; Start 05/10/20 at 18:16; Stop 05/10/20 at 19:15; Status DC Ondansetron HCl (Zofran) 4 mg 1X ONCE IVP Last administered on 05/10/20at 18:54; Start 05/10/20 at 18:30; Stop 05/10/20 at 18:31; Status DC Iohexol (Omnipaque 300 Mg/ml) 60 ml 1X ONCE IV Last administered on 05/10/20at 19:46; Start 05/10/20 at 20:00; Stop 05/10/20 at 20:01; Status DC Info (CONTRAST GIVEN -- Rx MONITORING) 1 each PRN DAILY PRN MC SEE COMMENTS; Start 05/10/20 at 19:45; Stop 05/12/20 at 19:44 Magnesium Sulfate 50 ml @ 25 mls/hr 1X ONCE IV Last administered on 05/10/20at 20:00; Start 05/10/20 at 20:00; Stop 05/10/20 at 21:59; Status DC Potassium Chloride/Water 100 ml @ 50 mls/hr 1X ONCE IV Last administered on 05/10/20at 21:21; Start 05/10/20 at 20:00; Stop 05/10/20 at 21:59; Status DC Potassium Chloride (Klor-Con) 40 meq 1X ONCE PO ; Start 05/10/20 at 20:00; Stop 05/10/20 at 20:01; Status DC Piperacillin Sod/ Tazobactam Sod 3.375 gm/Sodium Chloride 50 ml @ 100 mls/hr 1X ONCE IV Last administered on 05/10/20at 21:21; Start 05/10/20 at 21:00; Stop 05/10/20 at 21:29; Status DC Ondansetron HCl (Zofran) 4 mg PRN Q8HRS PRN IV NAUSEA/VOMITING; Start 05/10/20 at 21:00; Stop 05/11/20 at 20:59 Potassium Chloride/Dextrose/ Sod Cl 1,000 ml @ 125 mls/hr 1X ONCE IV Last administered on 05/10/20at 22:01; Start 05/10/20 at 21:30; Stop 05/11/20 at 05:29; Status DC Lorazepam (Ativan Inj) 1 mg 1X ONCE IVP Last administered on 05/10/20at 22:02; Start 05/10/20 at 22:00; Stop 05/10/20 at 22:01; Status DC Piperacillin Sod/ Tazobactam Sod 3.375 gm/Sodium Chloride 50 ml @ 100 mls/hr Q6HRS IV Last administered on 05/11/20at 05:16; Start 05/11/20 at 06:00 Ondansetron HCl (Zofran) 4 mg PRN Q6HRS PRN IVP NAUSEA/VOMITING; Start 05/10/20 at 23:00 Morphine Sulfate (Morphine Sulfate) 2 mg PRN Q1HR PRN IV PAIN; Start 05/10/20 at 23:00 Hydromorphone HCl (Dilaudid) 0.2 mg PRN Q1HR PRN IV PAIN; Start 05/10/20 at 23:00 Hydromorphone HCl (Dilaudid) 0.4 mg PRN Q1HR PRN IV PAIN; Start 05/10/20 at 23:00 Heparin Sodium (Porcine) (Heparin Sodium) 5,000 unit Q12HR SQ ; Start 05/11/20 at 09:00 Sodium Chloride 1,000 ml @ 100 mls/hr Q10H IV Last administered on 05/11/20at 07:14; Start 05/10/20 at 23:15 Influenza Virus Vaccine Quadrival (Fluzone Quad Syringe) 0.5 ml ONCE ONCE VAX IM ; Start 05/11/20 at 09:00; Stop 05/11/20 at 09:01 Potassium Chloride/Dextrose/ Sod Cl 1,000 ml @ 75 mls/hr [id number] PRN IV .; Start 05/11/20 at 08:15 Sodium Monofluorophosphate (Fleet Adult) 133 ml 1X ONCE SC ; Start 05/11/20 at 08:45; Stop 05/11/20 at 08:46; Status DC Active Scripts Active Polyethylene Glycol 3350 17 Gm Powd.pack 17 Gm PO PRN DAILY PRN 28 Days Bisacodyl 5 Mg Tablet. 5 Mg PO PRN DAILY PRN 14 Days Acetaminophen 500 Mg Tablet 500 Mg PO PRN Q6HRS PRN 30 Days Aspirin Ec (Aspirin) 81 Mg Tablet. 81 Mg PO DAILYWBKFT 30 Days Digoxin 125 Mcg Tablet 125 Mcg PO DAILY 30 Days Eliquis (Apixaban) 5 Mg Tablet 5 Mg PO BID 30 Days Duoneb 0.5-3(2.5) Mg/3 Ml (Albuterol/Ipratropium) 3 Ml Ampul.neb 3 Ml NEB RTQID 30 Days Vitamin C (Ascorbic Acid) 500 Mg Tablet 500 Mg PO DAILY 30 Days Thera-M Tablet (Multivits,Ca,Minerals/Iron/Fa) 1 Each Tablet 1 Tab PO DAILY 30 Days Pantoprazole Sodium (Pantoprazole Sodium) 40 Mg Tablet. 40 Mg PO DAILYAC 30 Days Klor-Con M20 (Potassium Chloride) 20 Meq Tab.er.prt 20 Meq PO DAILYWBKFT 30 Days Percocet 5-325 Mg Tablet (Oxycodone/Acetaminophen) 1 Each Tablet 1 Tab PO PRN Q6HRS PRN 6 Days Reported Symbicort 80-4.5 Mcg Inhaler (Budesonide/Formoterol Fumarate) 10.2 Gm Hfa.aer.ad 2 Puff IH BID Metoprolol Tartrate 50 Mg Tablet 1 Tab PO BID Allergies Allergies: Coded Allergies: No Known Drug Allergies (Unverified , 05/11/20) ROS General: YES: Fatigue; No: Chills PSYCHOLOGICAL ROS: No: Anxiety, Depression Eyes: No Blurry vision, No Double vision HEENT: No: Heacaches, Sore Throat Hematological and Lymphatic: YES: Bleeding Problems; No: Blood Clots Respiratory: No: Cough, Shortness of breath Cardiovascular: No Chest Pain, No Palpitations Gastrointestinal: Yes Other (see hpi) Genitourinary: No Dysuria, No Hematuria Musculoskeletal: No Joint Pain, No Muscular Weakness Neurological: No Impaired Coord/balance, No Numbness/Tingling Skin: No Pruritus, No Rash Physical Exam General: Cooperative, No acute distress HEENT: Other (NG in place) Lungs: Clear to auscultation, Normal air movement Heart: Other (tachy) Abdomen: Other (distended, nontender, midline scar ) Extremities: No clubbing, No cyanosis Skin: No rashes, No breakdown Neuro: Normal speech, Sensation intact Psych/Mental Status: Mental status NL, Mood NL MUSCULOSKELETAL: No deformity, No swelling Vitals VITALS Vital Signs Date Time Temp Pulse Resp B/P (MAP) Pulse Ox O2 Delivery O2 Flow Rate FiO2 05/11/20 07:00 98.8 105 18 156/98 (117) 98 98.8 05/11/20 03:28 Room Air 05/11/20 00:48 2.0 Labs Labs Laboratory Tests Test 05/10/20 18:41 05/10/20 22:14 05/10/20 23:35 05/11/20 04:45 White Blood Count 14.3 x10^3/uL (4.0-11.0) 12.6 x10^3/uL (4.0-11.0) Red Blood Count 5.30 x10^6/uL (4.30-5.70) 4.83 x10^6/uL (4.30-5.70) Hemoglobin 16.4 g/dL (13.0-17.5) 15.0 g/dL (13.0-17.5) Hematocrit 47.1 % (39.0-53.0) 43.4 % (39.0-53.0) Mean Corpuscular Volume 89 fL (79-100) 90 fL (79-100) Mean Corpuscular Hemoglobin 31 pg (25-35) 31 pg (25-35) Mean Corpuscular Hemoglobin Concent 35 g/dL (31-37) 35 g/dL (31-37) Red Cell Distribution Width 15.9 % (11.5-14.5) 15.8 % (11.5-14.5) Platelet Count 217 x10^3/uL (140-400) 191 x10^3/uL (140-400) Neutrophils (%) (Auto) 81 % (31-73) 71 % (31-73) Lymphocytes (%) (Auto) 9 % (24-48) 14 % (24-48) Monocytes (%) (Auto) 9 % (0-9) 10 % (0-9) Eosinophils (%) (Auto) 1 % (0-3) 4 % (0-3) Basophils (%) (Auto) 1 % (0-3) 1 % (0-3) Neutrophils # (Auto) 11.5 x10^3/uL (1.8-7.7) 9.0 x10^3/uL (1.8-7.7) Lymphocytes # (Auto) 1.3 x10^3/uL (1.0-4.8) 1.7 x10^3/uL (1.0-4.8) Monocytes # (Auto) 1.3 x10^3/uL (0.0-1.1) 1.3 x10^3/uL (0.0-1.1) Eosinophils # (Auto) 0.1 x10^3/uL (0.0-0.7) 0.5 x10^3/uL (0.0-0.7) Basophils # (Auto) 0.1 x10^3/uL (0.0-0.2) 0.2 x10^3/uL (0.0-0.2) Prothrombin Time 13.4 SEC (11.7-14.0) Prothromb Time International Ratio 1.1 (0.8-1.1) Activated Partial Thromboplast Time 30 SEC (24-38) Sodium Level 139 mmol/L (136-145) 142 mmol/L (136-145) Potassium Level 2.4 mmol/L (3.5-5.1) 2.4 mmol/L (3.5-5.1) Chloride Level 100 mmol/L (98-107) 103 mmol/L (98-107) Carbon Dioxide Level 32 mmol/L (21-32) 30 mmol/L (21-32) Anion Gap 7 (6-14) 9 (6-14) Blood Urea Nitrogen 17 mg/dL (8-26) 15 mg/dL (8-26) Creatinine 1.3 mg/dL (0.7-1.3) 1.2 mg/dL (0.7-1.3) Estimated GFR (Cockcroft-Gault) 54.1 59.3 BUN/Creatinine Ratio 13 (6-20) Glucose Level 123 mg/dL (70-99) 113 mg/dL (70-99) Lactic Acid Level 1.6 mmol/L (0.4-2.0) Calcium Level 9.1 mg/dL (8.5-10.1) 8.5 mg/dL (8.5-10.1) Magnesium Level 2.1 mg/dL (1.8-2.4) Total Bilirubin 1.1 mg/dL (0.2-1.0) Aspartate Amino Transf (AST/SGOT) 14 U/L (15-37) Alanine Aminotransferase (ALT/SGPT) 13 U/L (16-63) Alkaline Phosphatase 119 U/L (46-116) Total Protein 7.4 g/dL (6.4-8.2) Albumin 3.6 g/dL (3.4-5.0) Albumin/Globulin Ratio 0.9 (1.0-1.7) Lipase 40 U/L (73-393) SARS-CoV-2 Antigen (Rapid) Negative (NEGATIVE) Urine Collection Type Unknown Urine Color Yellow Urine Clarity Clear Urine pH 6.0 (<5.0-8.0) Urine Specific [place] >=1.030 (1.000-1.030) Urine Protein Negative mg/dL (NEG-TRACE) Urine Glucose (UA) Negative mg/dL (NEG) Urine Ketones (Stick) Negative mg/dL (NEG) Urine Blood Negative (NEG) Urine Nitrite Negative (NEG) Urine Bilirubin Negative (NEG) Urine Urobilinogen Dipstick 0.2 mg/dL (0.2 mg/dL) Urine Leukocyte Esterase Negative (NEG) Urine RBC 1-2 /HPF (0-2) Urine WBC Rare /HPF (0-4) Urine Squamous Epithelial Cells Few /LPF Urine Bacteria 0 /HPF (0-FEW) Urine Hyaline Casts Occasional /HPF Urine Mucus Slight /LPF Laboratory Tests Test 05/10/20 18:41 05/10/20 22:14 05/10/20 23:35 05/11/20 04:45 White Blood Count 14.3 x10^3/uL (4.0-11.0) 12.6 x10^3/uL (4.0-11.0) Red Blood Count 5.30 x10^6/uL (4.30-5.70) 4.83 x10^6/uL (4.30-5.70) Hemoglobin 16.4 g/dL (13.0-17.5) 15.0 g/dL (13.0-17.5) Hematocrit 47.1 % (39.0-53.0) 43.4 % (39.0-53.0) Mean Corpuscular Volume 89 fL (79-100) 90 fL (79-100) Mean Corpuscular Hemoglobin 31 pg (25-35) 31 pg (25-35) Mean Corpuscular Hemoglobin Concent 35 g/dL (31-37) 35 g/dL (31-37) Red Cell Distribution Width 15.9 % (11.5-14.5) 15.8 % (11.5-14.5) Platelet Count 217 x10^3/uL (140-400) 191 x10^3/uL (140-400) Neutrophils (%) (Auto) 81 % (31-73) 71 % (31-73) Lymphocytes (%) (Auto) 9 % (24-48) 14 % (24-48) Monocytes (%) (Auto) 9 % (0-9) 10 % (0-9) Eosinophils (%) (Auto) 1 % (0-3) 4 % (0-3) Basophils (%) (Auto) 1 % (0-3) 1 % (0-3) Neutrophils # (Auto) 11.5 x10^3/uL (1.8-7.7) 9.0 x10^3/uL (1.8-7.7) Lymphocytes # (Auto) 1.3 x10^3/uL (1.0-4.8) 1.7 x10^3/uL (1.0-4.8) Monocytes # (Auto) 1.3 x10^3/uL (0.0-1.1) 1.3 x10^3/uL (0.0-1.1) Eosinophils # (Auto) 0.1 x10^3/uL (0.0-0.7) 0.5 x10^3/uL (0.0-0.7) Basophils # (Auto) 0.1 x10^3/uL (0.0-0.2) 0.2 x10^3/uL (0.0-0.2) Prothrombin Time 13.4 SEC (11.7-14.0) Prothromb Time International Ratio 1.1 (0.8-1.1) Activated Partial Thromboplast Time 30 SEC (24-38) Sodium Level 139 mmol/L (136-145) 142 mmol/L (136-145) Potassium Level 2.4 mmol/L (3.5-5.1) 2.4 mmol/L (3.5-5.1) Chloride Level 100 mmol/L (98-107) 103 mmol/L (98-107) Carbon Dioxide Level 32 mmol/L (21-32) 30 mmol/L (21-32) Anion Gap 7 (6-14) 9 (6-14) Blood Urea Nitrogen 17 mg/dL (8-26) 15 mg/dL (8-26) Creatinine 1.3 mg/dL (0.7-1.3) 1.2 mg/dL (0.7-1.3) Estimated GFR (Cockcroft-Gault) 54.1 59.3 BUN/Creatinine Ratio 13 (6-20) Glucose Level 123 mg/dL (70-99) 113 mg/dL (70-99) Lactic Acid Level 1.6 mmol/L (0.4-2.0) Calcium Level 9.1 mg/dL (8.5-10.1) 8.5 mg/dL (8.5-10.1) Magnesium Level 2.1 mg/dL (1.8-2.4) Total Bilirubin 1.1 mg/dL (0.2-1.0) Aspartate Amino Transf (AST/SGOT) 14 U/L (15-37) Alanine Aminotransferase (ALT/SGPT) 13 U/L (16-63) Alkaline Phosphatase 119 U/L (46-116) Total Protein 7.4 g/dL (6.4-8.2) Albumin 3.6 g/dL (3.4-5.0) Albumin/Globulin Ratio 0.9 (1.0-1.7) Lipase 40 U/L (73-393) SARS-CoV-2 Antigen (Rapid) Negative (NEGATIVE) Urine Collection Type Unknown Urine Color Yellow Urine Clarity Clear Urine pH 6.0 (<5.0-8.0) Urine Specific [place] >=1.030 (1.000-1.030) Urine Protein Negative mg/dL (NEG-TRACE) Urine Glucose (UA) Negative mg/dL (NEG) Urine Ketones (Stick) Negative mg/dL (NEG) Urine Blood Negative (NEG) Urine Nitrite Negative (NEG) Urine Bilirubin Negative (NEG) Urine Urobilinogen Dipstick 0.2 mg/dL (0.2 mg/dL) Urine Leukocyte Esterase Negative (NEG) Urine RBC 1-2 /HPF (0-2) Urine WBC Rare /HPF (0-4) Urine Squamous Epithelial Cells Few /LPF Urine Bacteria 0 /HPF (0-FEW) Urine Hyaline Casts Occasional /HPF Urine Mucus Slight /LPF Assessment/Plan Assessment/Plan sigmoid volvulus significant cardiac hx, on eliquis d/w nurse, plans for flex sig today will review with SHELIA Braga MD 05/11/20 1650: CONSULT Assessment/Plan Assessment/Plan Pt seen and examined by myself; reported to hospital with abdominal pain, CT showing volvulus; colonoscopy done, able to scope past sigmoid indicating no complete obstruction; exam: alert, NG in place with bilious output, abdomen mod distended, some tenderness with palpation; Recommend operative interven tion, suspect will require sigmoid colectomy, release of SBO. Discussed with the patient and he is agreeable. KAYLI HOWARD CARD SORTER May 11, 2020 09:08 SHELIA CASTILLO MD May 11, 2020 16:50
--- NOTE | 2020-05-11 09:18 | RAD ---
Single view abdomen INDICATION: Follow-up sigmoid volvulus. New NG tube placement. COMPARISON: Abdomen and pelvis CT with IV contrast of 05/10/2020 FINDINGS: Single view abdomen shows placement of an enteric tube just below the diaphragms. There is blurr artifact that degrades detail. No free air is identified. Bowel gas pattern is nonspecific. IMPRESSION: Enteric decompression tube projecting over the upper abdomen below the diaphragms. Electronically signed by: Catherine Thayer MD (05/11/2020 9:16 AM) [id number]
[2020-05-11] MEDS ORDERED: IV RINGERS,LACTATED 1000ML 1,000 ML IV ONE (10:00)
--- NOTE | 2020-05-11 10:32 | PDOC2 ---
GI CONSULT Date of Service: DATE: 05/11/20 TIME: 10:23 Reason For Consult: Sigmoid volvulus HPI: HPI: 74 y/o male we have seen before. Abdominal pain since Friday, not much stool ("snot"). Imaging here read as sigmoid volvulus with associated SBO. NG with abnormal output. Did have N, V before. Has had prior abdominal surgery. No typical reflux symptoms. No dysphagia. Denies PUD, GB, liver or pancreatic history. Seen by us for abnormal LFT's; attributed to right heart failure. H/o polyps at colonoscopy 4-5 years ago. Has had C.diff in the past. On Eliquis and ASA. PMH: PMH: ASHD/PCI, HTN, PAD, HLD. S/p tonsillectomy, appy, ex. lap. 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) ROS: GEN: Denies fevers, chills, sweats HEENT: Denies blurred vision, sore throat CV: Denies chest pain RESP: Denies shortness of air, cough GI: Per HPI : Denies hematuria, dysuria ENDO: Denies weight changes NEURO: Denies confusion, dizziness MSK: Denies weakness, joint pain/swelling SKIN: Denies jaundice, pruritus Vitals: Vitals: Vital Signs Date Time Temp Pulse Resp B/P (MAP) Pulse Ox O2 Delivery O2 Flow Rate FiO2 05/11/20 09:50 Nasal Cannula 2.0 05/11/20 09:49 99.5 84 20 95 99.5 05/11/20 07:00 156/98 (117) Labs: Labs: Laboratory Tests Test 05/10/20 18:41 05/10/20 22:14 05/10/20 23:35 05/11/20 04:45 White Blood Count 14.3 x10^3/uL (4.0-11.0) 12.6 x10^3/uL (4.0-11.0) Red Blood Count 5.30 x10^6/uL (4.30-5.70) 4.83 x10^6/uL (4.30-5.70) Hemoglobin 16.4 g/dL (13.0-17.5) 15.0 g/dL (13.0-17.5) Hematocrit 47.1 % (39.0-53.0) 43.4 % (39.0-53.0) Mean Corpuscular Volume 89 fL (79-100) 90 fL (79-100) Mean Corpuscular Hemoglobin 31 pg (25-35) 31 pg (25-35) Mean Corpuscular Hemoglobin Concent 35 g/dL (31-37) 35 g/dL (31-37) Red Cell Distribution Width 15.9 % (11.5-14.5) 15.8 % (11.5-14.5) Platelet Count 217 x10^3/uL (140-400) 191 x10^3/uL (140-400) Neutrophils (%) (Auto) 81 % (31-73) 71 % (31-73) Lymphocytes (%) (Auto) 9 % (24-48) 14 % (24-48) Monocytes (%) (Auto) 9 % (0-9) 10 % (0-9) Eosinophils (%) (Auto) 1 % (0-3) 4 % (0-3) Basophils (%) (Auto) 1 % (0-3) 1 % (0-3) Neutrophils # (Auto) 11.5 x10^3/uL (1.8-7.7) 9.0 x10^3/uL (1.8-7.7) Lymphocytes # (Auto) 1.3 x10^3/uL (1.0-4.8) 1.7 x10^3/uL (1.0-4.8) Monocytes # (Auto) 1.3 x10^3/uL (0.0-1.1) 1.3 x10^3/uL (0.0-1.1) Eosinophils # (Auto) 0.1 x10^3/uL (0.0-0.7) 0.5 x10^3/uL (0.0-0.7) Basophils # (Auto) 0.1 x10^3/uL (0.0-0.2) 0.2 x10^3/uL (0.0-0.2) Prothrombin Time 13.4 SEC (11.7-14.0) Prothromb Time International Ratio 1.1 (0.8-1.1) Activated Partial Thromboplast Time 30 SEC (24-38) Sodium Level 139 mmol/L (136-145) 142 mmol/L (136-145) Potassium Level 2.4 mmol/L (3.5-5.1) 2.4 mmol/L (3.5-5.1) Chloride Level 100 mmol/L (98-107) 103 mmol/L (98-107) Carbon Dioxide Level 32 mmol/L (21-32) 30 mmol/L (21-32) Anion Gap 7 (6-14) 9 (6-14) Blood Urea Nitrogen 17 mg/dL (8-26) 15 mg/dL (8-26) Creatinine 1.3 mg/dL (0.7-1.3) 1.2 mg/dL (0.7-1.3) Estimated GFR (Cockcroft-Gault) 54.1 59.3 BUN/Creatinine Ratio 13 (6-20) Glucose Level 123 mg/dL (70-99) 113 mg/dL (70-99) Lactic Acid Level 1.6 mmol/L (0.4-2.0) Calcium Level 9.1 mg/dL (8.5-10.1) 8.5 mg/dL (8.5-10.1) Magnesium Level 2.1 mg/dL (1.8-2.4) Total Bilirubin 1.1 mg/dL (0.2-1.0) Aspartate Amino Transf (AST/SGOT) 14 U/L (15-37) Alanine Aminotransferase (ALT/SGPT) 13 U/L (16-63) Alkaline Phosphatase 119 U/L (46-116) Total Protein 7.4 g/dL (6.4-8.2) Albumin 3.6 g/dL (3.4-5.0) Albumin/Globulin Ratio 0.9 (1.0-1.7) Lipase 40 U/L (73-393) SARS-CoV-2 Antigen (Rapid) Negative (NEGATIVE) Urine Collection Type Unknown Urine Color Yellow Urine Clarity Clear Urine pH 6.0 (<5.0-8.0) Urine Specific [place] >=1.030 (1.000-1.030) Urine Protein Negative mg/dL (NEG-TRACE) Urine Glucose (UA) Negative mg/dL (NEG) Urine Ketones (Stick) Negative mg/dL (NEG) Urine Blood Negative (NEG) Urine Nitrite Negative (NEG) Urine Bilirubin Negative (NEG) Urine Urobilinogen Dipstick 0.2 mg/dL (0.2 mg/dL) Urine Leukocyte Esterase Negative (NEG) Urine RBC 1-2 /HPF (0-2) Urine WBC Rare /HPF (0-4) Urine Squamous Epithelial Cells Few /LPF Urine Bacteria 0 /HPF (0-FEW) Urine Hyaline Casts Occasional /HPF Urine Mucus Slight /LPF Allergies: Coded Allergies: No Known Drug Allergies (Unverified , 05/11/20) Medications: Current Medications Medications (Trade) Dose Ordered Sig/Marcio Route PRN Reason Start Time Stop Time Status Last Admin Dose Admin Morphine Sulfate (Morphine Sulfate) 2 mg PRN Q15MIN PRN IV/SQ PAIN GREATER THAN 3/10 05/10/20 18:30 05/11/20 18:29 05/10/20 18:55 Sodium Chloride 1,000 ml @ 1,000 mls/hr Q1H IV 05/10/20 18:16 05/10/20 19:15 DC 05/10/20 18:54 Ondansetron HCl (Zofran) 4 mg 1X ONCE IVP 05/10/20 18:30 05/10/20 18:31 DC 05/10/20 18:54 Iohexol (Omnipaque 300 Mg/ml) 60 ml 1X ONCE IV 05/10/20 20:00 05/10/20 20:01 DC 05/10/20 19:46 Magnesium Sulfate 50 ml @ 25 mls/hr 1X ONCE IV 05/10/20 20:00 05/10/20 21:59 DC 05/10/20 20:00 Potassium Chloride/Water 100 ml @ 50 mls/hr 1X ONCE IV 05/10/20 20:00 05/10/20 21:59 DC 05/10/20 21:21 Piperacillin Sod/ Tazobactam Sod 3.375 gm/Sodium Chloride 50 ml @ 100 mls/hr 1X ONCE IV 05/10/20 21:00 05/10/20 21:29 DC 05/10/20 21:21 Potassium Chloride/Dextrose/ Sod Cl 1,000 ml @ 125 mls/hr 1X ONCE IV 05/10/20 21:30 05/11/20 05:29 DC 05/10/20 22:01 Lorazepam (Ativan Inj) 1 mg 1X ONCE IVP 05/10/20 22:00 05/10/20 22:01 DC 05/10/20 22:02 Piperacillin Sod/ Tazobactam Sod 3.375 gm/Sodium Chloride 50 ml @ 100 mls/hr Q6HRS IV 05/11/20 06:00 05/11/20 05:16 Sodium Chloride 1,000 ml @ 100 mls/hr Q10H IV 05/10/20 23:15 05/11/20 07:14 Potassium Chloride/Dextrose/ Sod Cl 1,000 ml @ 75 mls/hr [id number] PRN IV . 05/11/20 08:15 05/11/20 09:07 Sodium Monofluorophosphate (Fleet Adult) 133 ml 1X ONCE UT 05/11/20 08:45 05/11/20 08:46 DC 05/11/20 08:45 Ringer's Solution 1,000 ml @ 75 mls/hr 1X ONCE IV 05/11/20 10:00 05/11/20 23:19 05/11/20 09:56 Imaging: Imaging: As mentioned above. PE: GEN: NAD HEENT: Atraumatic, PERRLA LUNGS: CTAB HEART: RRR, no murmurs ABD: Obstructive BS, distended/generallized tenderness, no masses EXTREMITY: No edema SKIN: No rashes, no jaundice NEURO/PSYCH: A & O 3 A/P: A/P: IMP: Sigmoid volvulus. SBO, related? History of colon polyps. REC: Sigmoidoscopy with attempt at volvulus reduction. Continue NG Other pending. BUBBA CAMP MD May 11, 2020 10:32
[2020-05-11] MEDS ORDERED: PROPOFOL 10 MG/ML (20ML) VIAL. IV ONE (10:33)
--- NOTE | 2020-05-11 11:02 | PDOC4 ---
PROCEDURE Procedure Flexible sigmoidoscopy/decompress volvulus Ind: Sigmoid Volvulus on CT Meds: per anesthesia Findings: BONIFACIO normal. 'Scope advanced to 80-90 cm. At about 30cm, apparent "twist", mucosa normal to this level. Able to pass. Above this, colon "dusky", but appears viable to me. Able to get above this area and mucosa normal. Suctioned as much air as possible. Little stool present. No retroflex, but narrow rectum and lowermost rectum well-seen. Harvey. well. IMP: Sigmoid volvulus, decompressed, unclearly untorsed. REC: Continue NG/NPO. Serial imaging/follow clinically. Sigmoid resection? BUBBA CAMP MD May 11, 2020 11:02
[2020-05-11] MEDS: PANTOPRAZOLE IV PUSH 40 MG VIAL. IVP SCH ×2 (11:55→17:25)
[2020-05-11] MEDS: HEPARIN for SUB-Q USE 5,000 UNIT/ML VIAL. SQ SCH ×2 (12:07→19:54)
--- NOTE | 2020-05-11 13:09 | RAD ---
EXAM: Supine AP view of the abdomen DATE: 05/11/2020 11:45 AM INDICATION: Reason: check NG placement post advancement / Spl. Instructions: / History: COMPARISON: 05/11/2020 FINDINGS/ IMPRESSION: NG tube tip projects over the antrum/pyloric region of the stomach. Dilated loops of small bowel are partially profiled. Lung base opacities and left pleural effusion are also seen. Electronically signed by: Sukhwinder Woodruff MD (05/11/2020 1:06 PM) [place]
[2020-05-11 15:00] VITALS: BP 204/114
[2020-05-11] MEDS: MORPHINE SULFATE 2 MG/ML VIAL. IV PRN ×2 (15:11→20:01)
--- NOTE | 2020-05-11 17:02 | NUR ---
SW following. Spoke with RN and reviewed chart. Pt from home. Pt currently on 2l 02, IV Zosyn. Pt's RAPID COVID test came back negative. Pt to have surgery today. SW to follow for discharge planning.
[2020-05-11] MEDS: POTASSIUM CHLORIDE 10MEQ 100 ML IV SCH ×2 (17:36→18:45)
[2020-05-11 19:00] VITALS: BP 144/88
[2020-05-11 23:00] VITALS: BP 185/86
[2020-05-12] VITALS (12 sets, daily range): BP systolic 121–155; BP diastolic 64–81
[2020-05-12] MEDS: PIPERACILLIN/TAZOBACTAM 3.375 GM in IV NORMAL SALINE 50ML 50 ML IV SCH ×4 (00:42→20:51)
[2020-05-12] MEDS: POTASSIUM CHLORIDE 10MEQ 100 ML IV SCH ×8 (00:43→23:18)
[2020-05-12] MEDS: IV NORMAL SALINE 1000ML BAG 1,000 ML IV SCH ×2 (00:45→12:08)
[2020-05-12] MEDS ORDERED: LIDOCAINE 1% PF 2 ML VIAL. ID PRN ×2 (07:00→13:00)
[2020-05-12] MEDS ORDERED: PROCHLORPERAZINE 10 MG/2 ML VIAL. IV PRN ×2 (07:00→13:00)
[2020-05-12] MEDS ORDERED: IV RINGERS,LACTATED 1000ML 1,000 ML IV SCH ×2 (07:00→12:54)
[2020-05-12 07:05] LABS: BASO # 0.1 x10^3/uL (0.0-0.2); BASO % 2 % (0-3); EOS # 0.1 x10^3/uL (0.0-0.7); EOS % 2 % (0-3); HEMOGLOBIN 14.7 g/dL (13.0-17.5); LYMPH # 0.9 x10^3/uL (1.0-4.8); LYMPH % 14 % (24-48); MEAN CORPUSCULAR HEMOGLOBIN 31 pg (25-35); MEAN CORPUSCULAR HGB CONC 34 g/dL (31-37); MEAN CORPUSCULAR VOLUME 91 fL (79-100); MONO # 0.9 x10^3/uL (0.0-1.1); MONO % 13 % (0-9); NEUT # 4.7 x10^3/uL (1.8-7.7); NEUT % 69 % (31-73); PLATELET COUNT 181 x10^3/uL (140-400); RED BLOOD COUNT 4.74 x10^6/uL (4.30-5.70); RED CELL DISTRIBUTION WIDTH 15.8 % (11.5-14.5); WHITE BLOOD COUNT 6.7 x10^3/uL (4.0-11.0)
[2020-05-12 07:10] LABS: CALCIUM 8.4 mg/dL (8.5-10.1); CREATININE 1.2 mg/dL (0.7-1.3); GFR 59.3; POTASSIUM 3.1 mmol/L (3.5-5.1)
[2020-05-12] MEDS: PANTOPRAZOLE IV PUSH 40 MG VIAL. IVP SCH ×2 (07:30→17:53)
[2020-05-12] MEDS ORDERED: KETAMINE HCL IN NACL, ISO-OSM 50 MG/5 ML SYRINGE ONE (08:39)
[2020-05-12] MEDS ORDERED: fentaNYL PF VIAL 100 MCG/2 ML VIAL ONE ×2 (08:39→09:00)
[2020-05-12] MEDS ORDERED: ROCURONIUM 100 MG/10 ML VIAL. ONE (08:39)
[2020-05-12] MEDS ORDERED: DESFLURANE 61 TO 120 MINUTES IH ONE (08:40)
[2020-05-12] MEDS ORDERED: DEXAMETHASONE SOD PHOS 4 MG/ML VIAL ONE (08:40)
[2020-05-12] MEDS ORDERED: PROPOFOL 10 MG/ML (20ML) VIAL. IV ONE (08:40)
[2020-05-12] MEDS ORDERED: LIDOCAINE 2% PF 5 ML VIAL. ONE (08:41)
[2020-05-12] MEDS ORDERED: ONDANSETRON PF 4 MG/2 ML VIAL. ONE (08:41)
[2020-05-12] MEDS ORDERED: FAMOTIDINE 20 MG/2 ML VIAL ONE (08:41)
[2020-05-12] MEDS ORDERED: PHENYLEPHRINE 10 MG/ML VIAL. ONE (08:41)
[2020-05-12] MEDS: HEPARIN for SUB-Q USE 5,000 UNIT/ML VIAL. SQ SCH ×2 (09:00→20:40)
[2020-05-12] MEDS ORDERED: fentaNYL PF VIAL 100 MCG/2 ML VIAL IVP ONE (09:15)
[2020-05-12] MEDS ORDERED: SUCCINYLCHOLINE 200 MG/10 ML VIAL. ONE (09:41)
[2020-05-12] MEDS ORDERED: REMIFENTANIL 1 MG VIAL. IV ONE (10:14)
[2020-05-12] MEDS ORDERED: SUGAMMADEX SODIUM 200 MG/2 ML VIAL. IVP ONE (10:15)
[2020-05-12] MEDS ORDERED: ROPIVacaine 0.5% PF 20 ML VIAL. ONE (11:38)
--- NOTE | 2020-05-12 12:08 | PDOC4 ---
Operative Note Operative Note Operative Note: Preoperative Diagnosis: Sigmoid colon volvulus Postoperative Diagnosis: Same Procedure: Exploratory laparotomy, sigmoid colon resection Surgeon: Parker Shelter Director: George ISLAS Anesthesia: General EBL: 75 mL Specimen: Sigmoid colon stitch at distal margin to pathology Drains: Olvin drain to subcutaneous tissue Complications: None Indication: The patient is a 74-year-old male presented with abdominal pain. His evaluation is suggestive of a sigmoid colon volvulus with secondary small bowel obstruction. We recommend proceeding to the operating room for surgical treatment. The risks of surgery were discussed which include bleeding, infection, anastomotic leak, pain, visceral injury, anesthetic risk, potential need for additional surgery procedure. He understands and would like to proceed. Description: The patient was taken to the operating room and placed supine on the operating table. General anesthesia was performed. The abdomen was prepped with ChloraPrep and draped in a standard surgical manner. A vertical midline incision was made in the skin with a scalpel. Cautery dissection was carried down to the fascia and peritoneum. Both were opened for the length of the incision. There were some adhesions of omentum to the anterior abdominal wall which were freed up with cautery. The Omni retractor was used for the remainder of the case to facilitate exposure. The sigmoid colon was readily identified an d appeared long and mobile causing it to loop into the right abdomen. The sigmoid colon showed changes of reversible ischemia. Further inspection identified a fixed point causing obstruction due to an apparent adhesion to the mesentery. In this location there was also a secondary obstructive point of the loop of small bowel. We were able to lyse the adhesions without difficulty relieving the obstruction. We elected for resection of the very redundant and elongated loop of sigmoid colon. The bowel was divided proximal and distal to the involved segment with a [id number] stapling device. The mesentery of the sigmoid colon was dissected. Blood vessels were ligated with 2-0 Vicryl and divided. The LigaSure device assisted with mesenteric dissection. The sigmoid colon was then fully excised and a stitch was used to ben the distal margin. The specimen was sent to pathology. A 2 layer handsewn end to end anastomosis was then constructed. The posterior seromuscular layer was developed first with interrupted 3-0 Vicryl. The staple lines were excised the next layer constructed with 3-0 PDS. The anterior seromuscular was then completed with 3-0 Vicryl. The abdominal cavity was then irrigated with sterile saline. Hemostasis was good and no other abnormalities were identified. The fascia was reapproximated with 1 PDS. A Olvin drain was left in the subcutaneous space which exited inferiorly and was secured to the skin with 3-0 Vicryl. The subcutaneous tissue was closed with 3-0 Vicryl and skin approximated with 4-0 Monocryl. A sterile dressing was then applied. The patient tolerated the procedure well and was sent to the recovery room in stable condition. At the end of the case all counts were correct. SHELIA CASTILLO MD May 12, 2020 12:08
[2020-05-12] MEDS ORDERED: NALOXONE 0.4 MG/ML VIAL. IV PRN (12:15)
[2020-05-12] MEDS ORDERED: fentaNYL PF VIAL 100 MCG/2 ML VIAL IV PRN ×2 (13:00)
[2020-05-12] MEDS ORDERED: MORPHINE SULFATE 2 MG/ML VIAL. IV PRN (13:00)
[2020-05-12] MEDS ORDERED: ONDANSETRON PF 4 MG/2 ML VIAL. IV PRN (13:00)
[2020-05-12] MEDS ORDERED: HYDROmorphone 2 MG/ML VIAL IV PRN (13:00)
[2020-05-12] MEDS: HYDROmorphone 12mg/30ml PCA 30 ML IV PRN (13:10)
--- NOTE | 2020-05-12 13:38 | PDOC ---
G I PROGRESS NOTE Subjective Not in room; suspect still in PACU. Objective OP note reviewed; discussed with Dr. Canales. Physical Exam No PE. Review of Relevant I have reviewed the following items ben (where applicable) has been applied. Labs Laboratory Tests Test 05/10/20 18:41 05/10/20 21:30 05/10/20 22:14 05/10/20 23:35 White Blood Count 14.3 x10^3/uL (4.0-11.0) Red Blood Count 5.30 x10^6/uL (4.30-5.70) Hemoglobin 16.4 g/dL (13.0-17.5) Hematocrit 47.1 % (39.0-53.0) Mean Corpuscular Volume 89 fL (79-100) Mean Corpuscular Hemoglobin 31 pg (25-35) Mean Corpuscular Hemoglobin Concent 35 g/dL (31-37) Red Cell Distribution Width 15.9 % (11.5-14.5) Platelet Count 217 x10^3/uL (140-400) Neutrophils (%) (Auto) 81 % (31-73) Lymphocytes (%) (Auto) 9 % (24-48) Monocytes (%) (Auto) 9 % (0-9) Eosinophils (%) (Auto) 1 % (0-3) Basophils (%) (Auto) 1 % (0-3) Neutrophils # (Auto) 11.5 x10^3/uL (1.8-7.7) Lymphocytes # (Auto) 1.3 x10^3/uL (1.0-4.8) Monocytes # (Auto) 1.3 x10^3/uL (0.0-1.1) Eosinophils # (Auto) 0.1 x10^3/uL (0.0-0.7) Basophils # (Auto) 0.1 x10^3/uL (0.0-0.2) Prothrombin Time 13.4 SEC (11.7-14.0) Prothromb Time International Ratio 1.1 (0.8-1.1) Activated Partial Thromboplast Time 30 SEC (24-38) Sodium Level 139 mmol/L (136-145) Potassium Level 2.4 mmol/L (3.5-5.1) Chloride Level 100 mmol/L (98-107) Carbon Dioxide Level 32 mmol/L (21-32) Anion Gap 7 (6-14) Blood Urea Nitrogen 17 mg/dL (8-26) Creatinine 1.3 mg/dL (0.7-1.3) Estimated GFR (Cockcroft-Gault) 54.1 BUN/Creatinine Ratio 13 (6-20) Glucose Level 123 mg/dL (70-99) Lactic Acid Level 1.6 mmol/L (0.4-2.0) Calcium Level 9.1 mg/dL (8.5-10.1) Magnesium Level 2.1 mg/dL (1.8-2.4) Total Bilirubin 1.1 mg/dL (0.2-1.0) Aspartate Amino Transf (AST/SGOT) 14 U/L (15-37) Alanine Aminotransferase (ALT/SGPT) 13 U/L (16-63) Alkaline Phosphatase 119 U/L (46-116) Total Protein 7.4 g/dL (6.4-8.2) Albumin 3.6 g/dL (3.4-5.0) Albumin/Globulin Ratio 0.9 (1.0-1.7) Lipase 40 U/L (73-393) Coronavirus (PCR) Not detected (Not Detected) SARS-CoV-2 Antigen (Rapid) Negative (NEGATIVE) Urine Collection Type Unknown Urine Color Yellow Urine Clarity Clear Urine pH 6.0 (<5.0-8.0) Urine Specific [place] >=1.030 (1.000-1.030) Urine Protein Negative mg/dL (NEG-TRACE) Urine Glucose (UA) Negative mg/dL (NEG) Urine Ketones (Stick) Negative mg/dL (NEG) Urine Blood Negative (NEG) Urine Nitrite Negative (NEG) Urine Bilirubin Negative (NEG) Urine Urobilinogen Dipstick 0.2 mg/dL (0.2 mg/dL) Urine Leukocyte Esterase Negative (NEG) Urine RBC 1-2 /HPF (0-2) Urine WBC Rare /HPF (0-4) Urine Squamous Epithelial Cells Few /LPF Urine Bacteria 0 /HPF (0-FEW) Urine Hyaline Casts Occasional /HPF Urine Mucus Slight /LPF Test 05/11/20 04:45 05/11/20 20:55 05/12/20 06:30 White Blood Count 12.6 x10^3/uL (4.0-11.0) 6.7 x10^3/uL (4.0-11.0) Red Blood Count 4.83 x10^6/uL (4.30-5.70) 4.74 x10^6/uL (4.30-5.70) Hemoglobin 15.0 g/dL (13.0-17.5) 14.7 g/dL (13.0-17.5) Hematocrit 43.4 % (39.0-53.0) 43.0 % (39.0-53.0) Mean Corpuscular Volume 90 fL (79-100) 91 fL (79-100) Mean Corpuscular Hemoglobin 31 pg (25-35) 31 pg (25-35) Mean Corpuscular Hemoglobin Concent 35 g/dL (31-37) 34 g/dL (31-37) Red Cell Distribution Width 15.8 % (11.5-14.5) 15.8 % (11.5-14.5) Platelet Count 191 x10^3/uL (140-400) 181 x10^3/uL (140-400) Neutrophils (%) (Auto) 71 % (31-73) 69 % (31-73) Lymphocytes (%) (Auto) 14 % (24-48) 14 % (24-48) Monocytes (%) (Auto) 10 % (0-9) 13 % (0-9) Eosinophils (%) (Auto) 4 % (0-3) 2 % (0-3) Basophils (%) (Auto) 1 % (0-3) 2 % (0-3) Neutrophils # (Auto) 9.0 x10^3/uL (1.8-7.7) 4.7 x10^3/uL (1.8-7.7) Lymphocytes # (Auto) 1.7 x10^3/uL (1.0-4.8) 0.9 x10^3/uL (1.0-4.8) Monocytes # (Auto) 1.3 x10^3/uL (0.0-1.1) 0.9 x10^3/uL (0.0-1.1) Eosinophils # (Auto) 0.5 x10^3/uL (0.0-0.7) 0.1 x10^3/uL (0.0-0.7) Basophils # (Auto) 0.2 x10^3/uL (0.0-0.2) 0.1 x10^3/uL (0.0-0.2) Sodium Level 142 mmol/L (136-145) 142 mmol/L (136-145) 143 mmol/L (136-145) Potassium Level 2.4 mmol/L (3.5-5.1) 3.0 mmol/L (3.5-5.1) 3.1 mmol/L (3.5-5.1) Chloride Level 103 mmol/L (98-107) 105 mmol/L (98-107) 104 mmol/L (98-107) Carbon Dioxide Level 30 mmol/L (21-32) 32 mmol/L (21-32) 30 mmol/L (21-32) Anion Gap 9 (6-14) 5 (6-14) 9 (6-14) Blood Urea Nitrogen 15 mg/dL (8-26) 15 mg/dL (8-26) Creatinine 1.2 mg/dL (0.7-1.3) 1.2 mg/dL (0.7-1.3) Estimated GFR (Cockcroft-Gault) 59.3 59.3 Glucose Level 113 mg/dL (70-99) 114 mg/dL (70-99) Calcium Level 8.5 mg/dL (8.5-10.1) 8.4 mg/dL (8.5-10.1) Laboratory Tests Test 05/11/20 20:55 05/12/20 06:30 Sodium Level 142 mmol/L (136-145) 143 mmol/L (136-145) Potassium Level 3.0 mmol/L (3.5-5.1) 3.1 mmol/L (3.5-5.1) Chloride Level 105 mmol/L (98-107) 104 mmol/L (98-107) Carbon Dioxide Level 32 mmol/L (21-32) 30 mmol/L (21-32) Anion Gap 5 (6-14) 9 (6-14) White Blood Count 6.7 x10^3/uL (4.0-11.0) Red Blood Count 4.74 x10^6/uL (4.30-5.70) Hemoglobin 14.7 g/dL (13.0-17.5) Hematocrit 43.0 % (39.0-53.0) Mean Corpuscular Volume 91 fL (79-100) Mean Corpuscular Hemoglobin 31 pg (25-35) Mean Corpuscular Hemoglobin Concent 34 g/dL (31-37) Red Cell Distribution Width 15.8 % (11.5-14.5) Platelet Count 181 x10^3/uL (140-400) Neutrophils (%) (Auto) 69 % (31-73) Lymphocytes (%) (Auto) 14 % (24-48) Monocytes (%) (Auto) 13 % (0-9) Eosinophils (%) (Auto) 2 % (0-3) Basophils (%) (Auto) 2 % (0-3) Neutrophils # (Auto) 4.7 x10^3/uL (1.8-7.7) Lymphocytes # (Auto) 0.9 x10^3/uL (1.0-4.8) Monocytes # (Auto) 0.9 x10^3/uL (0.0-1.1) Eosinophils # (Auto) 0.1 x10^3/uL (0.0-0.7) Basophils # (Auto) 0.1 x10^3/uL (0.0-0.2) Blood Urea Nitrogen 15 mg/dL (8-26) Creatinine 1.2 mg/dL (0.7-1.3) Estimated GFR (Cockcroft-Gault) 59.3 Glucose Level 114 mg/dL (70-99) Calcium Level 8.4 mg/dL (8.5-10.1) Vitals/I & O Vital Sign - Last 24 Hours 05/11/20 05/11/20 05/11/20 05/11/20 15:00 15:11 15:42 19:00 Temp 99.0 99.8 99.0 99.8 Pulse 105 114 Resp 18 22 B/P (MAP) 204/114 (144) 144/88 (106) Pulse Ox 97 94 94 96 O2 Delivery Nasal Cannula Nasal Cannula Room Air O2 Flow Rate 2.0 2.0 05/11/20 05/11/20 05/11/20 05/12/20 20:00 20:01 23:00 03:00 Temp 98.7 98.6 98.7 98.6 Pulse 110 111 Resp 20 B/P (MAP) 185/86 (119) 155/81 (105) Pulse Ox 94 95 93 O2 Delivery Nasal Cannula Nasal Cannula Room Air Room Air O2 Flow Rate 2.0 2.0 05/12/20 05/12/20 05/12/20 05/12/20 07:00 08:05 09:00 09:12 Temp 98.1 98.1 98.1 98.1 Pulse 92 92 Resp 18 15 15 B/P (MAP) 140/70 (93) 138/68 Pulse Ox 97 97 O2 Delivery Nasal Cannula Nasal Cannula Nasal Cannula O2 Flow Rate 2.0 2.0 2.0 05/12/20 05/12/20 05/12/20 05/12/20 12:19 12:19 12:30 12:45 Temp 98.8 98.8 Pulse 100 100 96 Resp 18 18 18 B/P (MAP) 165/86 155/86 141/77 Pulse Ox 100 100 96 O2 Delivery Simple Mask Mask Simple Mask Simple Mask O2 Flow Rate 8 8 8 4 05/12/20 05/12/20 05/12/20 05/12/20 12:59 13:00 13:10 13:15 Temp 98.4 98.4 Pulse 92 100 Resp 18 18 18 18 B/P (MAP) 132/73 138/73 Pulse Ox 96 96 96 96 O2 Delivery Simple Mask Simple Mask Simple Mask Nasal Cannula O2 Flow Rate 4.0 4 4.0 4 05/12/20 05/12/20 13:27 13:30 Pulse 96 Resp 18 B/P (MAP) 131/68 Pulse Ox 96 O2 Delivery Nasal Cannula Simple Mask O2 Flow Rate 4 4 Intake and Output 05/11/20 05/11/20 05/12/20 15:00 23:00 07:00 Intake Total 250 ml 350 ml 0 ml Output Total 500 ml 650 ml 1400 ml Balance -250 ml -300 ml -1400 ml Problem List Problems Medical Problems: (1) Abdominal pain Status: Acute (2) Sigmoid volvulus Status: Acute (3) Small bowel obstruction Status: Acute Assessment Sigmoid volvulus; unusual variant, more of a "flop" than a twist on mesenteric/omental adhesions. Now post-resection of redundant sigmoid. Plan of Care Note Post-op care/diet per surgical service. Off the weekend. Coverage available if needed. Justicition of Admission Dx: Justifications for Admission: Justification of Admission Dx: Yes (SBO, VOLVULUS, HYPOKALEMIA) BUBBA CAMP MD May 12, 2020 13:38
--- NOTE | 2020-05-12 17:21 | NUR ---
SW following. Spoke with RN and reviewed chart. SW asked about PT/OT orders for this patient. SW following.
--- NOTE | 2020-05-12 18:02 | PDOC ---
[facility] [facility] PROGRESS NOTE Date of Service DOS: DATE: 05/12/20 TIME: 18:00 Chief Complaint Chief Complaint Sigmoid volvulus, status post exploratory laparotomy and sigmoid colon resection Consult GI Consult general surgery NG tube decompression Pain management History of Present Illness History of Present Illness Patient status post exploratory laparotomy and sigmoid colon resection, 05/12. He states his pain is well controlled. NG tube in place. Denies any fevers. Discussed with RN. Vitals/I&O Vitals/I&O: Vital Signs Date Time Temp Pulse Resp B/P (MAP) Pulse Ox O2 Delivery O2 Flow Rate FiO2 05/12/20 14:07 101.8 88 22 131/72 (91) 94 101.8 05/12/20 13:30 Simple Mask 4 I & O 05/11/20 05/11/20 05/12/20 15:00 23:00 07:00 Intake Total 250 ml 350 ml 0 ml Output Total 500 ml 650 ml 1400 ml Balance -250 ml -300 ml -1400 ml Physical Exam General: Alert, Cooperative, No acute distress Heart: Regular rate, Other (tachy) Lungs: Clear Abdomen: Other (distended, nontender, midline scar ) Extremities: No clubbing, No cyanosis Skin: No rashes, No breakdown Labs Labs: Laboratory Tests Test 05/11/20 20:55 05/12/20 06:30 Sodium Level 142 mmol/L (136-145) 143 mmol/L (136-145) Potassium Level 3.0 mmol/L (3.5-5.1) 3.1 mmol/L (3.5-5.1) Chloride Level 105 mmol/L (98-107) 104 mmol/L (98-107) Carbon Dioxide Level 32 mmol/L (21-32) 30 mmol/L (21-32) Anion Gap 5 (6-14) 9 (6-14) White Blood Count 6.7 x10^3/uL (4.0-11.0) Red Blood Count 4.74 x10^6/uL (4.30-5.70) Hemoglobin 14.7 g/dL (13.0-17.5) Hematocrit 43.0 % (39.0-53.0) Mean Corpuscular Volume 91 fL (79-100) Mean Corpuscular Hemoglobin 31 pg (25-35) Mean Corpuscular Hemoglobin Concent 34 g/dL (31-37) Red Cell Distribution Width 15.8 % (11.5-14.5) Platelet Count 181 x10^3/uL (140-400) Neutrophils (%) (Auto) 69 % (31-73) Lymphocytes (%) (Auto) 14 % (24-48) Monocytes (%) (Auto) 13 % (0-9) Eosinophils (%) (Auto) 2 % (0-3) Basophils (%) (Auto) 2 % (0-3) Neutrophils # (Auto) 4.7 x10^3/uL (1.8-7.7) Lymphocytes # (Auto) 0.9 x10^3/uL (1.0-4.8) Monocytes # (Auto) 0.9 x10^3/uL (0.0-1.1) Eosinophils # (Auto) 0.1 x10^3/uL (0.0-0.7) Basophils # (Auto) 0.1 x10^3/uL (0.0-0.2) Blood Urea Nitrogen 15 mg/dL (8-26) Creatinine 1.2 mg/dL (0.7-1.3) Estimated GFR (Cockcroft-Gault) 59.3 Glucose Level 114 mg/dL (70-99) Calcium Level 8.4 mg/dL (8.5-10.1) Review of Systems Review of Systems: Aminal pain well controlled. Denies fever, denies shortness of breath, denies chest pain Assessment and Plan Assessmemt and Plan Problems Medical Problems: (1) Abdominal pain Status: Acute (2) Sigmoid volvulus Status: Acute (3) Small bowel obstruction Status: Acute Comment Review of Relevant I have reviewed the following items ben (where applicable) has been applied. Medications: Current Medications Medications (Trade) Dose Ordered Sig/Marcio Route PRN Reason Start Time Stop Time Status Last Admin Dose Admin Ringer's Solution 1,000 ml @ 30 mls/hr Q24H IV 05/12/20 07:00 05/12/20 18:59 05/12/20 09:09 Potassium Chloride/Water 100 ml @ 100 mls/hr Q1H IV 05/11/20 23:30 05/12/20 03:29 DC 05/12/20 06:17 Potassium Chloride/Water 100 ml @ 100 mls/hr Q1H IV 05/12/20 09:00 05/12/20 13:02 DC 05/12/20 17:51 Fentanyl Citrate (Fentanyl 2ml Vial) 100 mcg 1X ONCE IVP 05/12/20 09:15 05/12/20 09:16 DC 05/12/20 09:12 Hydromorphone HCl 30 ml @ 0 mls/hr CONT PRN PRN IV PER PROTOCOL 05/12/20 12:15 05/12/20 13:10 Fentanyl Citrate (Fentanyl 2ml Vial) 50 mcg PRN Q5MIN PRN IV MODERATE TO SEVERE PAIN 05/12/20 13:00 05/13/20 12:59 05/12/20 12:59 Justifications for Admission Other Justification JOSE A BURGOS MD May 12, 2020 18:02
--- NOTE | 2020-05-12 21:00 | RAD ---
EXAM: Supine AP view of the abdomen DATE: 05/12/2020 7:52 PM INDICATION: NGT placement COMPARISON: No Prior FINDINGS/ IMPRESSION: NG tube tip terminates over the antrum/pyloric region of the stomach, stable. Bilateral lung base airspace opacities and pleural effusions are again seen. Degree of bowel dilatation has decreased compared to prior radiograph 05/11/2020 and only partially visualized given the limited [id number]. Evaluation for free intraperitoneal gas is limited on this supine exam. Electronically signed by: Sukhwinder Woodruff MD (05/12/2020 8:57 PM) [place]
[2020-05-13] MEDS: IV NORMAL SALINE 1000ML BAG 1,000 ML IV SCH ×5 (00:36→17:48)
[2020-05-13] MEDS: PIPERACILLIN/TAZOBACTAM 3.375 GM in IV NORMAL SALINE 50ML 50 ML IV SCH ×4 (00:54→17:49)
[2020-05-13 03:00] VITALS: BP 111/60
[2020-05-13 04:27] LABS: BASO % 1 % (0-3); EOS # 0.1 x10^3/uL (0.0-0.7); EOS % 1 % (0-3); HEMATOCRIT 40.1 % (39.0-53.0); HEMOGLOBIN 13.7 g/dL (13.0-17.5); LYMPH % 13 % (24-48); MEAN CORPUSCULAR HEMOGLOBIN 31 pg (25-35); MEAN CORPUSCULAR HGB CONC 34 g/dL (31-37); MEAN CORPUSCULAR VOLUME 92 fL (79-100); MONO % 12 % (0-9); NEUT # 6.2 x10^3/uL (1.8-7.7); NEUT % 75 % (31-73); PLATELET COUNT 174 x10^3/uL (140-400); RED BLOOD COUNT 4.38 x10^6/uL (4.30-5.70); RED CELL DISTRIBUTION WIDTH 15.9 % (11.5-14.5); WHITE BLOOD COUNT 8.4 x10^3/uL (4.0-11.0)
[2020-05-13 04:43] LABS: CALCIUM 8.3 mg/dL (8.5-10.1); CREATININE 1.3 mg/dL (0.7-1.3); GFR 54.1; POTASSIUM 3.9 mmol/L (3.5-5.1)
[2020-05-13 07:00] VITALS: BP 130/88
[2020-05-13] MEDS: PANTOPRAZOLE IV PUSH 40 MG VIAL. IVP SCH ×2 (07:16→17:48)
--- NOTE | 2020-05-13 09:16 | PDOC ---
[facility] [facility] PROGRESS NOTE Date of Service DOS: DATE: 05/13/20 TIME: 09:15 Chief Complaint Chief Complaint Sigmoid volvulus, status post exploratory laparotomy and sigmoid colon resection Consult GI Consult general surgery NG tube decompression Pain management Continue IV antibiotics and supportive care History of Present Illness History of Present Illness 05/12 Patient status post exploratory laparotomy and sigmoid colon resection, 05/12. He states his pain is well controlled. NG tube in place. Denies any fevers. Discussed with RN. 05/13 Patient post ex lap and sigmoid colon resection. Pain well controlled with pain pump. NG tube in place. He tolerated a popsicle today. Denies any fevers. Vitals/I&O Vitals/I&O: Vital Signs Date Time Temp Pulse Resp B/P (MAP) Pulse Ox O2 Delivery O2 Flow Rate FiO2 05/13/20 07:00 98.8 79 130/88 (102) 99 Room Air 98.8 05/13/20 03:00 20 05/12/20 20:00 2.0 I & O 05/12/20 05/12/20 05/13/20 15:00 23:00 07:00 Intake Total 650 ml 0 ml 0 ml Output Total 1680 ml 725 ml Balance -1030 ml 0 ml -725 ml Physical Exam General: Alert, Cooperative, No acute distress Heart: Regular rate, Other (tachy) Lungs: Clear Abdomen: Other (distended, nontender, midline scar ) Extremities: No clubbing, No cyanosis Skin: No rashes, No breakdown Labs Labs: Laboratory Tests Test 05/13/20 03:45 05/13/20 07:36 White Blood Count 8.4 x10^3/uL (4.0-11.0) Red Blood Count 4.38 x10^6/uL (4.30-5.70) Hemoglobin 13.7 g/dL (13.0-17.5) Hematocrit 40.1 % (39.0-53.0) Mean Corpuscular Volume 92 fL (79-100) Mean Corpuscular Hemoglobin 31 pg (25-35) Mean Corpuscular Hemoglobin Concent 34 g/dL (31-37) Red Cell Distribution Width 15.9 % (11.5-14.5) Platelet Count 174 x10^3/uL (140-400) Neutrophils (%) (Auto) 75 % (31-73) Lymphocytes (%) (Auto) 13 % (24-48) Monocytes (%) (Auto) 12 % (0-9) Eosinophils (%) (Auto) 1 % (0-3) Basophils (%) (Auto) 1 % (0-3) Neutrophils # (Auto) 6.2 x10^3/uL (1.8-7.7) Lymphocytes # (Auto) 1.0 x10^3/uL (1.0-4.8) Monocytes # (Auto) 1.0 x10^3/uL (0.0-1.1) Eosinophils # (Auto) 0.1 x10^3/uL (0.0-0.7) Basophils # (Auto) 0.0 x10^3/uL (0.0-0.2) Sodium Level 145 mmol/L (136-145) Potassium Level 3.9 mmol/L (3.5-5.1) Chloride Level 109 mmol/L (98-107) Carbon Dioxide Level 31 mmol/L (21-32) Anion Gap 5 (6-14) Blood Urea Nitrogen 21 mg/dL (8-26) Creatinine 1.3 mg/dL (0.7-1.3) Estimated GFR (Cockcroft-Gault) 54.1 Glucose Level 102 mg/dL (70-99) Calcium Level 8.3 mg/dL (8.5-10.1) Glucose (Fingerstick) 95 mg/dL (70-99) Review of Systems Review of Systems: Abdominal pain, well controlled. Denies shortness of breath, denies fever, denies chest pain. Assessment and Plan Assessmemt and Plan Problems Medical Problems: (1) Abdominal pain Status: Acute (2) Sigmoid volvulus Status: Acute (3) Small bowel obstruction Status: Acute Comment Review of Relevant I have reviewed the following items ben (where applicable) has been applied. Medications: Current Medications Medications (Trade) Dose Ordered Sig/Marcio Route PRN Reason Start Time Stop Time Status Last Admin Dose Admin Sodium Chloride 1,000 ml @ 25 mls/hr Q24H IV 05/12/20 12:08 05/13/20 00:36 Hydromorphone HCl 30 ml @ 0 mls/hr CONT PRN PRN IV PER PROTOCOL 05/12/20 12:15 05/12/20 13:10 Fentanyl Citrate (Fentanyl 2ml Vial) 50 mcg PRN Q5MIN PRN IV MODERATE TO SEVERE PAIN 05/12/20 13:00 05/13/20 08:00 DC 05/12/20 12:59 Justifications for Admission Other Justification JOSE A BURGOS MD May 13, 2020 09:16
[2020-05-13] MEDS: HEPARIN for SUB-Q USE 5,000 UNIT/ML VIAL. SQ SCH ×2 (09:28→21:40)
[2020-05-13 11:00] VITALS: BP 109/70
[2020-05-13 15:00] VITALS: BP 131/65
[2020-05-13 19:00] VITALS: BP 165/94
[2020-05-13 23:00] VITALS: BP 146/78
[2020-05-14] VITALS (7 sets, daily range): BP systolic 108–166; BP diastolic 76–94
[2020-05-14] MEDS: PIPERACILLIN/TAZOBACTAM 3.375 GM in IV NORMAL SALINE 50ML 50 ML IV SCH ×5 (00:13→23:29)
[2020-05-14] MEDS: IV NORMAL SALINE 1000ML BAG 1,000 ML IV SCH ×2 (05:49→12:07)
[2020-05-14 06:43] LABS: BASO # 0.1 x10^3/uL (0.0-0.2); BASO % 1 % (0-3); EOS # 0.7 x10^3/uL (0.0-0.7); EOS % 8 % (0-3); HEMATOCRIT 38.4 % (39.0-53.0); HEMOGLOBIN 13.2 g/dL (13.0-17.5); LYMPH # 1.1 x10^3/uL (1.0-4.8); LYMPH % 12 % (24-48); MEAN CORPUSCULAR HEMOGLOBIN 31 pg (25-35); MEAN CORPUSCULAR HGB CONC 34 g/dL (31-37); MEAN CORPUSCULAR VOLUME 92 fL (79-100); MONO # 0.8 x10^3/uL (0.0-1.1); MONO % 9 % (0-9); NEUT # 6.4 x10^3/uL (1.8-7.7); NEUT % 70 % (31-73); PLATELET COUNT 169 x10^3/uL (140-400); RED BLOOD COUNT 4.19 x10^6/uL (4.30-5.70); RED CELL DISTRIBUTION WIDTH 15.6 % (11.5-14.5); WHITE BLOOD COUNT 9.2 x10^3/uL (4.0-11.0)
[2020-05-14 06:55] LABS: CREATININE 1.2 mg/dL (0.7-1.3); GFR 59.3; POTASSIUM 3.5 mmol/L (3.5-5.1)
[2020-05-14] MEDS: PANTOPRAZOLE IV PUSH 40 MG VIAL. IVP SCH ×2 (06:55→16:00)
[2020-05-14] MEDS: POTASSIUM CL 40MEQ D5-0.45NACL 1,000 ML IV SCH ×2 (08:16→21:41)
[2020-05-14] MEDS: HEPARIN for SUB-Q USE 5,000 UNIT/ML VIAL. SQ SCH ×2 (08:25→21:13)
--- NOTE | 2020-05-14 08:41 | PDOC ---
[facility] [facility] PROGRESS NOTE Date of Service DOS: DATE: 05/14/20 TIME: 08:38 Chief Complaint Chief Complaint Sigmoid volvulus, status post exploratory laparotomy and sigmoid colon resection Consult GI Consult general surgery NG tube decompression Pain management Continue IV antibiotics and supportive care History of Present Illness History of Present Illness 05/12 Patient status post exploratory laparotomy and sigmoid colon resection, 05/12. He states his pain is well controlled. NG tube in place. Denies any fevers. Discussed with RN. 05/13 Patient post ex lap and sigmoid colon resection. Pain well controlled with pain pump. NG tube in place. He tolerated a popsicle today. Denies any fevers. 05/14 Pain remains well controlled. Tolerating popsicle and ice chips. NG tube in place, will removed today. Advance diet slowly. Vitals/I&O Vitals/I&O: Vital Signs Date Time Temp Pulse Resp B/P (MAP) Pulse Ox O2 Delivery O2 Flow Rate FiO2 05/14/20 03:00 98.8 97 18 166/88 (114) 95 Nasal Cannula 2.0 98.8 I & O 05/13/20 05/13/20 05/14/20 15:00 23:00 07:00 Intake Total 0 ml 50 ml Output Total 200 ml 250 ml 950 ml Balance -200 ml -250 ml -900 ml Physical Exam General: Alert, Cooperative, No acute distress Heart: Regular rate, Other (tachy) Lungs: Clear Abdomen: Other (distended, nontender, midline scar ) Extremities: No clubbing, No cyanosis Skin: No rashes, No breakdown Labs Labs: Laboratory Tests Test 05/13/20 11:53 05/13/20 16:40 05/13/20 20:27 05/14/20 06:35 Glucose (Fingerstick) 113 mg/dL (70-99) 86 mg/dL (70-99) 85 mg/dL (70-99) White Blood Count 9.2 x10^3/uL (4.0-11.0) Red Blood Count 4.19 x10^6/uL (4.30-5.70) Hemoglobin 13.2 g/dL (13.0-17.5) Hematocrit 38.4 % (39.0-53.0) Mean Corpuscular Volume 92 fL (79-100) Mean Corpuscular Hemoglobin 31 pg (25-35) Mean Corpuscular Hemoglobin Concent 34 g/dL (31-37) Red Cell Distribution Width 15.6 % (11.5-14.5) Platelet Count 169 x10^3/uL (140-400) Neutrophils (%) (Auto) 70 % (31-73) Lymphocytes (%) (Auto) 12 % (24-48) Monocytes (%) (Auto) 9 % (0-9) Eosinophils (%) (Auto) 8 % (0-3) Basophils (%) (Auto) 1 % (0-3) Neutrophils # (Auto) 6.4 x10^3/uL (1.8-7.7) Lymphocytes # (Auto) 1.1 x10^3/uL (1.0-4.8) Monocytes # (Auto) 0.8 x10^3/uL (0.0-1.1) Eosinophils # (Auto) 0.7 x10^3/uL (0.0-0.7) Basophils # (Auto) 0.1 x10^3/uL (0.0-0.2) Sodium Level 149 mmol/L (136-145) Potassium Level 3.5 mmol/L (3.5-5.1) Chloride Level 113 mmol/L (98-107) Carbon Dioxide Level 28 mmol/L (21-32) Anion Gap 8 (6-14) Blood Urea Nitrogen 20 mg/dL (8-26) Creatinine 1.2 mg/dL (0.7-1.3) Estimated GFR (Cockcroft-Gault) 59.3 Glucose Level 86 mg/dL (70-99) Calcium Level 8.0 mg/dL (8.5-10.1) Test 05/14/20 07:34 Glucose (Fingerstick) 84 mg/dL (70-99) Review of Systems Review of Systems: Pain controlled. Denies fever. All other systems negative. Assessment and Plan Assessmemt and Plan Problems Medical Problems: (1) Abdominal pain Status: Acute (2) Sigmoid volvulus Status: Acute (3) Small bowel obstruction Status: Acute Comment Review of Relevant I have reviewed the following items ben (where applicable) has been applied. Medications: Current Medications Medications (Trade) Dose Ordered Sig/Marcio Route PRN Reason Start Time Stop Time Status Last Admin Dose Admin Potassium Chloride/Dextrose/ Sod Cl 1,000 ml @ 75 mls/hr [id number] IV 05/14/20 08:00 05/14/20 08:16 Justifications for Admission Other Justification JOSE A BURGOS MD May 14, 2020 08:41
[2020-05-14] MEDS: HYDROmorphone 12mg/30ml PCA 30 ML IV PRN (08:45)
--- NOTE | 2020-05-14 12:08 | PDOC ---
PROGRESS NOTES Date of Service DATE: 05/14/20 TIME: 12:08 Subjective Subjective improving Objective Objective Vital Signs Date Time Temp Pulse Resp B/P (MAP) Pulse Ox O2 Delivery O2 Flow Rate FiO2 05/14/20 11:52 97.7 92 18 159/76 (103) 93 Nasal Cannula 2.0 97.7 Intake and Output 05/14/20 07:00 Intake Total 50 ml Output Total 1400 ml Balance -1350 ml Intake Oral 0 ml IV Total 50 ml Output Urine Total 1050 ml Gastric Drainage Total 350 ml Physical Exam Abdomen: Soft Assessment Assessment Problems Medical Problems: (1) Abdominal pain Status: Acute (2) Sigmoid volvulus Status: Acute (3) Small bowel obstruction Status: Acute Plan Plan of Care KEENA ARROYO, KEENA ramos, await return of bowel function Comment Review of Relevant I have reviewed the following items ben (where applicable) has been applied. Labs Laboratory Tests Test 05/13/20 03:45 05/13/20 07:36 05/13/20 11:53 05/13/20 16:40 White Blood Count 8.4 x10^3/uL (4.0-11.0) Red Blood Count 4.38 x10^6/uL (4.30-5.70) Hemoglobin 13.7 g/dL (13.0-17.5) Hematocrit 40.1 % (39.0-53.0) Mean Corpuscular Volume 92 fL (79-100) Mean Corpuscular Hemoglobin 31 pg (25-35) Mean Corpuscular Hemoglobin Concent 34 g/dL (31-37) Red Cell Distribution Width 15.9 % (11.5-14.5) Platelet Count 174 x10^3/uL (140-400) Neutrophils (%) (Auto) 75 % (31-73) Lymphocytes (%) (Auto) 13 % (24-48) Monocytes (%) (Auto) 12 % (0-9) Eosinophils (%) (Auto) 1 % (0-3) Basophils (%) (Auto) 1 % (0-3) Neutrophils # (Auto) 6.2 x10^3/uL (1.8-7.7) Lymphocytes # (Auto) 1.0 x10^3/uL (1.0-4.8) Monocytes # (Auto) 1.0 x10^3/uL (0.0-1.1) Eosinophils # (Auto) 0.1 x10^3/uL (0.0-0.7) Basophils # (Auto) 0.0 x10^3/uL (0.0-0.2) Sodium Level 145 mmol/L (136-145) Potassium Level 3.9 mmol/L (3.5-5.1) Chloride Level 109 mmol/L (98-107) Carbon Dioxide Level 31 mmol/L (21-32) Anion Gap 5 (6-14) Blood Urea Nitrogen 21 mg/dL (8-26) Creatinine 1.3 mg/dL (0.7-1.3) Estimated GFR (Cockcroft-Gault) 54.1 Glucose Level 102 mg/dL (70-99) Calcium Level 8.3 mg/dL (8.5-10.1) Glucose (Fingerstick) 95 mg/dL (70-99) 113 mg/dL (70-99) 86 mg/dL (70-99) Test 05/13/20 20:27 05/14/20 06:35 05/14/20 07:34 05/14/20 11:35 Glucose (Fingerstick) 85 mg/dL (70-99) 84 mg/dL (70-99) 109 mg/dL (70-99) White Blood Count 9.2 x10^3/uL (4.0-11.0) Red Blood Count 4.19 x10^6/uL (4.30-5.70) Hemoglobin 13.2 g/dL (13.0-17.5) Hematocrit 38.4 % (39.0-53.0) Mean Corpuscular Volume 92 fL (79-100) Mean Corpuscular Hemoglobin 31 pg (25-35) Mean Corpuscular Hemoglobin Concent 34 g/dL (31-37) Red Cell Distribution Width 15.6 % (11.5-14.5) Platelet Count 169 x10^3/uL (140-400) Neutrophils (%) (Auto) 70 % (31-73) Lymphocytes (%) (Auto) 12 % (24-48) Monocytes (%) (Auto) 9 % (0-9) Eosinophils (%) (Auto) 8 % (0-3) Basophils (%) (Auto) 1 % (0-3) Neutrophils # (Auto) 6.4 x10^3/uL (1.8-7.7) Lymphocytes # (Auto) 1.1 x10^3/uL (1.0-4.8) Monocytes # (Auto) 0.8 x10^3/uL (0.0-1.1) Eosinophils # (Auto) 0.7 x10^3/uL (0.0-0.7) Basophils # (Auto) 0.1 x10^3/uL (0.0-0.2) Sodium Level 149 mmol/L (136-145) Potassium Level 3.5 mmol/L (3.5-5.1) Chloride Level 113 mmol/L (98-107) Carbon Dioxide Level 28 mmol/L (21-32) Anion Gap 8 (6-14) Blood Urea Nitrogen 20 mg/dL (8-26) Creatinine 1.2 mg/dL (0.7-1.3) Estimated GFR (Cockcroft-Gault) 59.3 Glucose Level 86 mg/dL (70-99) Calcium Level 8.0 mg/dL (8.5-10.1) Laboratory Tests Test 05/13/20 16:40 05/13/20 20:27 05/14/20 06:35 05/14/20 07:34 Glucose (Fingerstick) 86 mg/dL (70-99) 85 mg/dL (70-99) 84 mg/dL (70-99) White Blood Count 9.2 x10^3/uL (4.0-11.0) Red Blood Count 4.19 x10^6/uL (4.30-5.70) Hemoglobin 13.2 g/dL (13.0-17.5) Hematocrit 38.4 % (39.0-53.0) Mean Corpuscular Volume 92 fL (79-100) Mean Corpuscular Hemoglobin 31 pg (25-35) Mean Corpuscular Hemoglobin Concent 34 g/dL (31-37) Red Cell Distribution Width 15.6 % (11.5-14.5) Platelet Count 169 x10^3/uL (140-400) Neutrophils (%) (Auto) 70 % (31-73) Lymphocytes (%) (Auto) 12 % (24-48) Monocytes (%) (Auto) 9 % (0-9) Eosinophils (%) (Auto) 8 % (0-3) Basophils (%) (Auto) 1 % (0-3) Neutrophils # (Auto) 6.4 x10^3/uL (1.8-7.7) Lymphocytes # (Auto) 1.1 x10^3/uL (1.0-4.8) Monocytes # (Auto) 0.8 x10^3/uL (0.0-1.1) Eosinophils # (Auto) 0.7 x10^3/uL (0.0-0.7) Basophils # (Auto) 0.1 x10^3/uL (0.0-0.2) Sodium Level 149 mmol/L (136-145) Potassium Level 3.5 mmol/L (3.5-5.1) Chloride Level 113 mmol/L (98-107) Carbon Dioxide Level 28 mmol/L (21-32) Anion Gap 8 (6-14) Blood Urea Nitrogen 20 mg/dL (8-26) Creatinine 1.2 mg/dL (0.7-1.3) Estimated GFR (Cockcroft-Gault) 59.3 Glucose Level 86 mg/dL (70-99) Calcium Level 8.0 mg/dL (8.5-10.1) Test 05/14/20 11:35 Glucose (Fingerstick) 109 mg/dL (70-99) Medications Current Medications Morphine Sulfate (Morphine Sulfate) 2 mg PRN Q15MIN PRN IV/SQ PAIN GREATER THAN 3/10 Last administered on 05/10/20at 18:55; Start 05/10/20 at 18:30; Stop 05/11/20 at 18:29; Status DC Sodium Chloride 1,000 ml @ 1,000 mls/hr Q1H IV Last administered on 05/10/20at 18:54; Start 05/10/20 at 18:16; Stop 05/10/20 at 19:15; Status DC Ondansetron HCl (Zofran) 4 mg 1X ONCE IVP Last administered on 05/10/20at 18:54; Start 05/10/20 at 18:30; Stop 05/10/20 at 18:31; Status DC Iohexol (Omnipaque 300 Mg/ml) 60 ml 1X ONCE IV Last administered on 05/10/20at 19:46; Start 05/10/20 at 20:00; Stop 05/10/20 at 20:01; Status DC Info (CONTRAST GIVEN -- Rx MONITORING) 1 each PRN DAILY PRN MC SEE COMMENTS; Start 05/10/20 at 19:45; Stop 05/12/20 at 19:44; Status DC Magnesium Sulfate 50 ml @ 25 mls/hr 1X ONCE IV Last administered on 05/10/20at 20:00; Start 05/10/20 at 20:00; Stop 05/10/20 at 21:59; Status DC Potassium Chloride/Water 100 ml @ 50 mls/hr 1X ONCE IV Last administered on 05/10/20at 21:21; Start 05/10/20 at 20:00; Stop 05/10/20 at 21:59; Status DC Potassium Chloride (Klor-Con) 40 meq 1X ONCE PO ; Start 05/10/20 at 20:00; Stop 05/10/20 at 20:01; Status DC Piperacillin Sod/ Tazobactam Sod 3.375 gm/Sodium Chloride 50 ml @ 100 mls/hr 1X ONCE IV Last administered on 05/10/20at 21:21; Start 05/10/20 at 21:00; Stop 05/10/20 at 21:29; Status DC Ondansetron HCl (Zofran) 4 mg PRN Q8HRS PRN IV NAUSEA/VOMITING; Start 05/10/20 at 21:00; Stop 05/11/20 at 16:01; Status DC Potassium Chloride/Dextrose/ Sod Cl 1,000 ml @ 125 mls/hr 1X ONCE IV Last administered on 05/10/20at 22:01; Start 05/10/20 at 21:30; Stop 05/11/20 at 05:29; Status DC Lorazepam (Ativan Inj) 1 mg 1X ONCE IVP Last administered on 05/10/20at 22:02; Start 05/10/20 at 22:00; Stop 05/10/20 at 22:01; Status DC Piperacillin Sod/ Tazobactam Sod 3.375 gm/Sodium Chloride 50 ml @ 100 mls/hr Q6HRS IV Last administered on 05/14/20at 12:05; Start 05/11/20 at 06:00 Ondansetron HCl (Zofran) 4 mg PRN Q6HRS PRN IVP NAUSEA/VOMITING; Start 05/10/20 at 23:00 Morphine Sulfate (Morphine Sulfate) 2 mg PRN Q1HR PRN IV MODERATE-SEVERE PAIN (1ST) Last administered on 05/11/20at 20:01; Start 05/10/20 at 23:00; Stop 05/13/20 at 08:00; Status DC Hydromorphone HCl (Dilaudid) 0.2 mg PRN Q1HR PRN IV MODERATE PAIN; Start 05/10/20 at 23:00; Stop 05/12/20 at 12:12; Status DC Hydromorphone HCl (Dilaudid) 0.4 mg PRN Q1HR PRN IV SEVERE PAIN; Start 05/10/20 at 23:00; Stop 05/12/20 at 12:12; Status DC Heparin Sodium (Porcine) (Heparin Sodium) 5,000 unit Q12HR SQ Last administered on 05/14/20at 08:25; Start 05/11/20 at 09:00 Sodium Chloride 1,000 ml @ 100 mls/hr Q10H IV Last administered on 05/14/20at 05:49; Start 05/10/20 at 23:15; Stop 05/14/20 at 07:47; Status DC Influenza Virus Vaccine Quadrival (Fluzone Quad Syringe) 0.5 ml ONCE ONCE VAX IM Last administered on 05/11/20at 11:58; Start 05/11/20 at 09:00; Stop 05/11/20 at 09:01; Status DC Potassium Chloride/Dextrose/ Sod Cl 1,000 ml @ 75 mls/hr [id number] PRN IV . Last administered on 05/11/20at 09:07; Start 05/11/20 at 08:15; Stop 05/14/20 at 07:46; Status DC Sodium Monofluorophosphate (Fleet Adult) 133 ml 1X ONCE PA Last administered on 05/11/20at 08:45; Start 05/11/20 at 08:45; Stop 05/11/20 at 08:46; Status DC Ringer's Solution 1,000 ml @ 75 mls/hr 1X ONCE IV Last administered on 05/11/20at 09:56; Start 05/11/20 at 10:00; Stop 05/11/20 at 23:19; Status DC Propofol (Diprivan) 200 mg STK-MED ONCE IV ; Start 05/11/20 at 10:33; Stop 05/11/20 at 10:33; Status DC Pantoprazole Sodium (PROTONIX VIAL for IV PUSH) 40 mg BIDAC IVP Last administered on 05/14/20at 06:55; Start 05/11/20 at 11:00 Ringer's Solution 1,000 ml @ 30 mls/hr Q24H IV Last administered on 05/12/20at 09:09; Start 05/12/20 at 07:00; Stop 05/12/20 at 18:59; Status DC Lidocaine HCl (Xylocaine-Mpf 1% 2ml Vial) 2 ml PRN 1X PRN ID PRIOR TO IV START; Start 05/12/20 at 07:00; Stop 05/13/20 at 06:59; Status DC Prochlorperazine Edisylate (Compazine) 5 mg PACU PRN PRN IV NAUSEA, MRX1; Start 05/12/20 at 07:00; Stop 05/13/20 at 06:59; Status DC Potassium Chloride/Water 100 ml @ 100 mls/hr Q1H IV Last administered on 05/11/20at 18:45; Start 05/11/20 at 17:15; Stop 05/11/20 at 19:14; Status DC Potassium Chloride/Water 100 ml @ 100 mls/hr Q1H IV Last administered on 05/12/20at 06:17; Start 05/11/20 at 23:30; Stop 05/12/20 at 03:29; Status DC Potassium Chloride/Water 100 ml @ 100 mls/hr Q1H IV Last administered on 05/12/20at 23:18; Start 05/12/20 at 09:00; Stop 05/12/20 at 13:02; Status DC Ketamine HCl (Ketamine) 50 mg STK-MED ONCE .ROUTE ; Start 05/12/20 at 08:39; S top 05/12/20 at 08:39; Status DC Rocuronium [place] (Zemuron) 100 mg STK-MED ONCE .ROUTE ; Start 05/12/20 at 08:39; Stop 05/12/20 at 08:39; Status DC Fentanyl Citrate (Fentanyl 2ml Vial) 100 mcg STK-MED ONCE .ROUTE ; Start 05/12/20 at 08:39; Stop 05/12/20 at 08:39; Status DC Desflurane (Suprane) 60 ml STK-MED ONCE IH ; Start 05/12/20 at 08:40; Stop 05/12/20 at 08:40; Status DC Propofol (Diprivan) 200 mg STK-MED ONCE IV ; Start 05/12/20 at 08:40; Stop 05/12/20 at 08:40; Status DC Dexamethasone Sodium Phosphate (Decadron) 4 mg STK-MED ONCE .ROUTE ; Start 05/12/20 at 08:40; Stop 05/12/20 at 08:41; Status DC Phenylephrine HCl (Layo-Synephrine Inj) 10 mg STK-MED ONCE .ROUTE ; Start 05/12/20 at 08:41; Stop 05/12/20 at 08:41; Status DC Lidocaine HCl (Lidocaine Pf 2% Vial) 5 ml STK-MED ONCE .ROUTE ; Start 05/12/20 at 08:41; Stop 05/12/20 at 08:41; Status DC Ondansetron HCl (Zofran) 4 mg STK-MED ONCE .ROUTE ; Start 05/12/20 at 08:41; Stop 05/12/20 at 08:41; Status DC Famotidine (Pepcid Vial) 20 mg STK-MED ONCE .ROUTE ; Start 05/12/20 at 08:41; Stop 05/12/20 at 08:41; Status DC Fentanyl Citrate (Fentanyl 2ml Vial) 100 mcg STK-MED ONCE .ROUTE ; Start 05/12/20 at 09:00; Stop 05/12/20 at 09:00; Status DC Fentanyl Citrate (Fentanyl 2ml Vial) 100 mcg 1X ONCE IVP Last administered on 05/12/20at 09:12; Start 05/12/20 at 09:15; Stop 05/12/20 at 09:16; Status DC Succinylcholine Chloride (Anectine) 200 mg STK-MED ONCE .ROUTE ; Start 05/12/20 at 09:41; Stop 05/12/20 at 09:42; Status DC Sugammadex Sodium (Bridion) 200 mg 1X ONCE IVP ; Start 05/12/20 at 10:15; Stop 05/12/20 at 10:16; Status DC Remifentanil HCl (Ultiva) 1 mg STK-MED ONCE IV ; Start 05/12/20 at 10:14; Stop 05/12/20 at 10:15; Status DC Ropivacaine (Naropin 0.5%) 20 ml STK-MED ONCE .ROUTE ; Start 05/12/20 at 11:38; Stop 05/12/20 at 11:38; Status DC Naloxone HCl (Narcan) 0.4 mg PRN Q2MIN PRN IV SEE INSTRUCTIONS; Start 05/12/20 at 12:15 Sodium Chloride 1,000 ml @ 25 mls/hr Q24H IV Last administered on 05/14/20at 12:07; Start 05/12/20 at 12:08 Hydromorphone HCl 30 ml @ 0 mls/hr CONT PRN PRN IV PER PROTOCOL Last administered on 05/14/20at 08:45; Start 05/12/20 at 12:15 Ondansetron HCl (Zofran) 4 mg PRN Q6HRS PRN IV NAUSEA/VOMITING; Start 05/12/20 at 13:00; Stop 05/13/20 at 08:00; Status DC Fentanyl Citrate (Fentanyl 2ml Vial) 25 mcg PRN Q5MIN PRN IV MILD PAIN 1-3; Start 05/12/20 at 13:00; Stop 05/13/20 at 08:00; Status DC Fentanyl Citrate (Fentanyl 2ml Vial) 50 mcg PRN Q5MIN PRN IV MODERATE TO SEVERE PAIN Last administered on 05/12/20at 12:59; Start 05/12/20 at 13:00; Stop 05/13/20 at 08:00; Status DC Morphine Sulfate (Morphine Sulfate) 1 mg PRN Q10MIN PRN IV SEVERE PAIN 7-10; Start 05/12/20 at 13:00; Stop 05/13/20 at 08:00; Status DC Ringer's Solution 1,000 ml @ 30 mls/hr Q24H IV ; Start 05/12/20 at 12:54; Stop 05/13/20 at 00:53; Status DC Lidocaine HCl (Xylocaine-Mpf 1% 2ml Vial) 2 ml PRN 1X PRN ID PRIOR TO IV START; Start 05/12/20 at 13:00; Stop 05/13/20 at 12:59; Status DC Hydromorphone HCl (Dilaudid) 0.5 mg PRN Q10MIN PRN IV SEV PAIN, Second choice; Start 05/12/20 at 13:00; Stop 05/13/20 at 08:00; Status DC Prochlorperazine Edisylate (Compazine) 5 mg PACU PRN PRN IV NAUSEA, MRX1; Start 05/12/20 at 13:00; Stop 05/13/20 at 08:00; Status DC Potassium Chloride/Dextrose/ Sod Cl 1,000 ml @ 75 mls/hr [id number] IV Last administered on 05/14/20at 08:16; Start 05/14/20 at 08:00 Active Scripts Active Polyethylene Glycol 3350 17 Gm Powd.pack 17 Gm PO PRN DAILY PRN 28 Days Bisacodyl 5 Mg Tablet. 5 Mg PO PRN DAILY PRN 14 Days Acetaminophen 500 Mg Tablet 500 Mg PO PRN Q6HRS PRN 30 Days Aspirin Ec (Aspirin) 81 Mg Tablet. 81 Mg PO DAILYWBKFT 30 Days Digoxin 125 Mcg Tablet 125 Mcg PO DAILY 30 Days Eliquis (Apixaban) 5 Mg Tablet 5 Mg PO BID 30 Days Duoneb 0.5-3(2.5) Mg/3 Ml (Albuterol/Ipratropium) 3 Ml Ampul.neb 3 Ml NEB RTQID 30 Days Vitamin C (Ascorbic Acid) 500 Mg Tablet 500 Mg PO DAILY 30 Days Thera-M Tablet (Multivits,Ca,Minerals/Iron/Fa) 1 Each Tablet 1 Tab PO DAILY 30 Days Pantoprazole Sodium (Pantoprazole Sodium) 40 Mg Tablet. 40 Mg PO DAILYAC 30 Days Klor-Con M20 (Potassium Chloride) 20 Meq Tab.er.prt 20 Meq PO DAILYWBKFT 30 Days Percocet 5-325 Mg Tablet (Oxycodone/Acetaminophen) 1 Each Tablet 1 Tab PO PRN Q6HRS PRN 6 Days Reported Symbicort 80-4.5 Mcg Inhaler (Budesonide/Formoterol Fumarate) 10.2 Gm Hfa.aer.ad 2 Puff IH BID Metoprolol Tartrate 50 Mg Tablet 1 Tab PO BID Vitals/I & O Vital Sign - Last 24 Hours 05/13/20 05/13/20 05/13/20 05/13/20 15:00 19:00 20:00 23:00 Temp 97.9 99.2 99.6 97.9 99.2 99.6 Pulse 90 94 98 Resp 20 18 17 B/P (MAP) 131/65 (87) 165/94 (117) 146/78 (100) Pulse Ox 97 95 98 O2 Delivery Nasal Cannula Nasal Cannula Nasal Cannula Nasal Cannula O2 Flow Rate 2.0 2.0 2.0 2.0 05/14/20 05/14/20 05/14/20 05/14/20 03:00 07:59 08:15 08:45 Temp 98.8 98.9 98.8 98.9 Pulse 97 95 Resp 18 18 B/P (MAP) 166/88 (114) 151/77 (101) Pulse Ox 95 96 O2 Delivery Nasal Cannula Room Air Nasal Cannula Nasal Cannula O2 Flow Rate 2.0 2.0 2.0 05/14/20 05/14/20 09:27 11:52 Temp 97.7 97.7 Pulse 92 Resp 18 B/P (MAP) 159/76 (103) Pulse Ox 96 93 O2 Delivery Nasal Cannula Nasal Cannula O2 Flow Rate 2.0 2.0 Intake and Output 05/13/20 05/13/20 05/14/20 15:00 23:00 07:00 Intake Total 0 ml 50 ml Output Total 200 ml 250 ml 950 ml Balance -200 ml -250 ml -900 ml Justifications for Admission Other Justification SHELIA CASTILLO MD May 14, 2020 12:08
[2020-05-15] VITALS (7 sets, daily range): BP systolic 109–145; BP diastolic 63–79
[2020-05-15] MEDS: ONDANSETRON PF 4 MG/2 ML VIAL. IVP PRN (03:07)
--- NOTE | 2020-05-15 05:00 | NUR ---
NURSING NOTE Pts heart rate has increased from low 100's to 140's-170's. Pt denies any chest pain, palpitations or feeling of heart racing. BP is 136/84 at this time. Oxygen level is 95% on 3L/NC, RR is 28-32/min. Pt denies any SOA. Pt does have moist cough, but unable to produce any sputum. Pt had a small amount of emesis around 0300, but currently denies nausea. Dr. Treviño paged.
--- NOTE | 2020-05-15 05:00 | EKG ---
[facility] [address] [place] [address] Test Date: 2020-05-15 Test Time: 04:59:32 Pat Name: PRESTON HAMILTON Department: Room: 532 1 Gender: M Correspondence Dictator: JUAN : 1945 Requested By: JOSE A BURGOS Order Number: [id number] Reading MD: Measurements Intervals [place] Rate: 128 P: VA: QRS: 34 QRSD: 86 T: 8 QT: 330 QTc: 485 Interpretive Statements IRREGULAR RHYTHM, NO P-WAVE FOUND NO SPECIFIC ECG ABNORMALITIES RI6.01 Compared to ECG 05/10/2020 18:31:33 No significant changes
[2020-05-15 05:11] LABS: BASO # 0.1 x10^3/uL (0.0-0.2); BASO % 1 % (0-3); EOS # 0.4 x10^3/uL (0.0-0.7); EOS % 5 % (0-3); HEMATOCRIT 41.3 % (39.0-53.0); LYMPH # 1.1 x10^3/uL (1.0-4.8); LYMPH % 12 % (24-48); MEAN CORPUSCULAR HEMOGLOBIN 31 pg (25-35); MEAN CORPUSCULAR HGB CONC 34 g/dL (31-37); MEAN CORPUSCULAR VOLUME 91 fL (79-100); MONO % 11 % (0-9); NEUT # 6.6 x10^3/uL (1.8-7.7); NEUT % 72 % (31-73); PLATELET COUNT 186 x10^3/uL (140-400); RED BLOOD COUNT 4.53 x10^6/uL (4.30-5.70); RED CELL DISTRIBUTION WIDTH 15.6 % (11.5-14.5); WHITE BLOOD COUNT 9.2 x10^3/uL (4.0-11.0)
[2020-05-15 05:42] LABS: CALCIUM 8.4 mg/dL (8.5-10.1); GFR 73.2; POTASSIUM 3.6 mmol/L (3.5-5.1)
[2020-05-15] MEDS ORDERED: DIGOXIN IV 500 MCG/2 ML AMPUL. IV ONE ×2 (06:00→11:30)
[2020-05-15] MEDS ORDERED: METOPROLOL TARTRATE 5 MG/5 ML VIAL. IVP ONE (06:00)
[2020-05-15] MEDS ORDERED: DIGOXIN 125 MCG TABLET. PO ONE (06:00)
[2020-05-15] MEDS ORDERED: METOPROLOL TART IMMED RELEASE 50 MG TABLET. PO ONE (06:00)
[2020-05-15] MEDS: PIPERACILLIN/TAZOBACTAM 3.375 GM in IV NORMAL SALINE 50ML 50 ML IV SCH ×4 (06:09→23:00)
--- NOTE | 2020-05-15 08:47 | PDOC ---
PROGRESS NOTES Date of Service: DATE: 05/15/20 TIME: 08:47 Chief Complaint Chief Complaint IMPRESSION Sigmoid volvulus, status post exploratory laparotomy and sigmoid colon resection Wall thickening of the rectum and sigmoid colon is consistent with a component of colitis. NPO--await bowel function now in Afib, cardiac consulted 05/15 move to cvc Consult GI Consult general surgery NG tube decompression Pain management Continue IV antibiotics and supportive care 37 MIN PT EXAM, CHART REVIEW, > 50% of time spent with exam, chart review, pt care coordination History of Present Illness History of Present Illness 05/12 Patient status post exploratory laparotomy and sigmoid colon resection, 05/12. He states his pain is well controlled. NG tube in place. Denies any fevers. Discussed with RN. 05/13 Patient post ex lap and sigmoid colon resection. Pain well controlled with pain pump. NG tube in place. He tolerated a popsicle today. Denies any fevers. 05/15 Pain remains well controlled. Tolerating popsicle and ice chips. NG tube in place, will removed today. Advance diet slowly. Vitals Vitals Vital Signs Date Time Temp Pulse Resp B/P (MAP) Pulse Ox O2 Delivery O2 Flow Rate FiO2 05/15/20 07:20 98.7 100 18 110/67 (81) 96 Nasal Cannula 3.0 98.7 Physical Exam General: Alert, Oriented X3, Cooperative, No acute distress Heart: Regular rate, Other (tachy) Lungs: Clear Abdomen: Soft Extremities: No clubbing, No cyanosis Skin: No rashes, No breakdown Labs LABS EXAM: Supine AP view of the abdomen DATE: 05/12/2020 7:52 PM INDICATION: NGT placement COMPARISON: No Prior FINDINGS/ IMPRESSION: NG tube tip terminates over the antrum/pyloric region of the stomach, stable. Bilateral lung base airspace opacities and pleural effusions are again seen. Degree of bowel dilatation has decreased compared to prior radiograph 05/11/2020 and only partially visualized given the limited [id number]. Evaluation for free intraperitoneal gas is limited on this supine exam. Electronically signed by: Sukhwinder Rosado MD (05/12/2020 8:57 PM) [facility] DI[facility]ATED and SIGNED BY: SUKHWINDER ROSADO MD DATE: 05/12/202056 EXAM: CT ABDOMEN/PELVIS WITH CONTRAST. HISTORY: Abdominal pain and constipation. TECHNIQUE: Computed tomography of the abdomen and pelvis was performed after the intravenous administration of iodinated contrast. One or more of the following individualized dose reduction techniques were utilized for this examination: 1. Automated exposure control. 2. Adjustment of the mA and/or kV according to patient size. 3. Use of iterative reconstruction technique. COMPARISON: 03/30/2019. FINDINGS: Lung windows through the visualized portions of the bases reveal mild atelectasis. There is a trace left pleural effusion. There are atherosclerotic calcifications of the coronary arteries. Bone windows reveal no suspicious lesions. There is severe osteoarthritis of the left hip with volume loss of the left femoral head. The spleen is mildly enlarged at 13.8 cm. A 5 mm hypoattenuating focus in hepatic segment 6 is stable and likely reflects a benign cyst or hemangioma. The pancreas, adrenal glands, gallbladder and kidneys are unremarkable. Prominent left external iliac lymph nodes measure up to 19 x 13 mm. No clearly pathologically enlarged mesenteric or retroperitoneal nodes are seen. There is volvulus of the sigmoid colon. The volvulized portion is mildly distended. There is edema within the associated mesentery consistent with venous compression. The upstream colon is not clearly dilated. The rectum demonstrates wall thickening. The stomach and small bowel are moderately dilated with a transition point at the volvulized mesentery. The distal small bowel is decompressed. There is a small amount of ascites. There is no drainable collection. IMPRESSION: 1. Sigmoid volvulus. The volvulized mesentery also results in small bowel obstruction. 2. Wall thickening of the rectum and sigmoid colon is consistent with a component of colitis. 3. Mild splenomegaly. 4. Prominent external iliac lymph nodes are nonspecific. Correlate for lower extremity inflammation. These findings were called to Dr. Jacobson by Noé Lopez on 05/10/2020 at 8:56 PM. FOR INTERNAL CODING PURPOSES RESULT CODE: (C) Electronically signed by: Melisa Lopez MD (05/10/2020 8:56 PM) [facility] DICTATED and SIGNED BY: JOHN LOPEZ MD DATE: 05/10/202055 Laboratory Tests Test 05/14/20 11:35 05/14/20 17:22 05/14/20 20:04 05/15/20 04:35 Glucose (Fingerstick) 109 mg/dL (70-99) 123 mg/dL (70-99) 104 mg/dL (70-99) White Blood Count 9.2 x10^3/uL (4.0-11.0) Red Blood Count 4.53 x10^6/uL (4.30-5.70) Hemoglobin 14.0 g/dL (13.0-17.5) Hematocrit 41.3 % (39.0-53.0) Mean Corpuscular Volume 91 fL (79-100) Mean Corpuscular Hemoglobin 31 pg (25-35) Mean Corpuscular Hemoglobin Concent 34 g/dL (31-37) Red Cell Distribution Width 15.6 % (11.5-14.5) Platelet Count 186 x10^3/uL (140-400) Neutrophils (%) (Auto) 72 % (31-73) Lymphocytes (%) (Auto) 12 % (24-48) Monocytes (%) (Auto) 11 % (0-9) Eosinophils (%) (Auto) 5 % (0-3) Basophils (%) (Auto) 1 % (0-3) Neutrophils # (Auto) 6.6 x10^3/uL (1.8-7.7) Lymphocytes # (Auto) 1.1 x10^3/uL (1.0-4.8) Monocytes # (Auto) 1.0 x10^3/uL (0.0-1.1) Eosinophils # (Auto) 0.4 x10^3/uL (0.0-0.7) Basophils # (Auto) 0.1 x10^3/uL (0.0-0.2) Sodium Level 146 mmol/L (136-145) Potassium Level 3.6 mmol/L (3.5-5.1) Chloride Level 110 mmol/L (98-107) Carbon Dioxide Level 29 mmol/L (21-32) Anion Gap 7 (6-14) Blood Urea Nitrogen 12 mg/dL (8-26) Creatinine 1.0 mg/dL (0.7-1.3) Estimated GFR (Cockcroft-Gault) 73.2 Glucose Level 137 mg/dL (70-99) Calcium Level 8.4 mg/dL (8.5-10.1) Test 05/15/20 08:00 Glucose (Fingerstick) 122 mg/dL (70-99) Assessment and Plan Assessmemt and Plan Problems Medical Problems: (1) Abdominal pain Status: Acute (2) Sigmoid volvulus Status: Acute (3) Small bowel obstruction Status: Acute DPOA REVIEW 17 MIN What Is a Power of Document Review Attorney? A power of securities attorney (POA) is a legal document giving one person (the agent or ksukhoci-wr-kqcv) the power to act for another person (the principal). The agent can have broad legal authority or limited authority to make legal decisions about the principal's property, finances or medical care. The power of securities attorney is frequently used in the event of a principal's illness or disability, or when the principal can't be present to sign necessary legal documents for financial transactions. A power of securities attorney can end for a number of reasons, such as when the principal dies, the principal revokes it, a court invalidates it, the principal divorces their spouse, who happens to be the agent, or the agent can no longer carry out the outlined responsibilities. Conventional POAs lapse when the creator becomes incapacitated, but a durable POA remains in force to enable the agent to manage the creators affairs, and a springing POA comes into effect only if and when the creator of the POA becomes incapacitated. A medical or healthcare POA enables an agent to make medical decisions on behalf of an incapacitated person. [employer] A power of securities attorney (POA) is a legal document giving one person, the agent or fchhignb-ap-taby the power to act for another person, the principal. The agent can have broad legal authority or limited authority to make decisions about the principal's property, finances or medical care. The power of securities attorney is often used when a principal becomes ill or disabled, or when they can't be present to sign necessary legal documents for financial transactions. Understanding Power of Document Review Attorney A power of securities attorney should be considered when planning for long-term care. There are different types of POAs that fall under either a general power of securities attorney or limited power of securities attorney. A general power of securities attorney acts on behalf of the principal in any and all matters, as allowed by the state. The agent under a general POA agreement may be authorized to take care of issues such as handling bank accounts, signing checks, selling property and assets like stocks, f A limited power of securities attorney gives the agent the power to act on behalf of the principal in specific matters or events. For example, the limited POA may explicitly state that the agent is only allowed to manage the principal's residential accounts. A limited POA may also be limited to a specific period of time (e.g., if the principal will be out of the country for, say, two years). Most [place] of securities attorney documents allow an agent to represent the principal in all property and financial matters as long as the principals mental state of mind is good. If a situation occurs where the principal becomes incapable of making decisions for him or herself, the POA agreement would automatically end. However, someone who wants the POA to remain in effect after the persons health deteriorates would need to sign a durable power of securities attorney (DPOA). What is an advance directive? An advance directive is a legal document that says how you want to be cared for if you are unable to make decisions. You can include what medical treatments you would want and who you would trust to make decisions for you. An advance directive can also include other legal documents. A living will is a list of treatment preferences. It can be used to indicate whether you would want cardiopulmonary resuscitation (CPR), tube feedings, a breathing machine, or certain medicines, like antibiotics. The durable power of securities attorney for health care document identifies the person you would want to make medical decisions for you. This person is also called a proxy. Your proxy should be familiar with your values and wishes. How do I get started? You can get advance directive documents for your state from your doctor's office or from [email or web address].org. Review the forms, and ask your doctor if you have any questions. Pick a person to be your proxy, and talk it over with that person. Comment Review of Relevant I have reviewed the following items ben (where applicable) has been applied. Labs Laboratory Tests Test 05/13/20 11:53 05/13/20 16:40 05/13/20 20:27 05/14/20 06:35 Glucose (Fingerstick) 113 mg/dL (70-99) 86 mg/dL (70-99) 85 mg/dL (70-99) White Blood Count 9.2 x10^3/uL (4.0-11.0) Red Blood Count 4.19 x10^6/uL (4.30-5.70) Hemoglobin 13.2 g/dL (13.0-17.5) Hematocrit 38.4 % (39.0-53.0) Mean Corpuscular Volume 92 fL (79-100) Mean Corpuscular Hemoglobin 31 pg (25-35) Mean Corpuscular Hemoglobin Concent 34 g/dL (31-37) Red Cell Distribution Width 15.6 % (11.5-14.5) Platelet Count 169 x10^3/uL (140-400) Neutrophils (%) (Auto) 70 % (31-73) Lymphocytes (%) (Auto) 12 % (24-48) Monocytes (%) (Auto) 9 % (0-9) Eosinophils (%) (Auto) 8 % (0-3) Basophils (%) (Auto) 1 % (0-3) Neutrophils # (Auto) 6.4 x10^3/uL (1.8-7.7) Lymphocytes # (Auto) 1.1 x10^3/uL (1.0-4.8) Monocytes # (Auto) 0.8 x10^3/uL (0.0-1.1) Eosinophils # (Auto) 0.7 x10^3/uL (0.0-0.7) Basophils # (Auto) 0.1 x10^3/uL (0.0-0.2) Sodium Level 149 mmol/L (136-145) Potassium Level 3.5 mmol/L (3.5-5.1) Chloride Level 113 mmol/L (98-107) Carbon Dioxide Level 28 mmol/L (21-32) Anion Gap 8 (6-14) Blood Urea Nitrogen 20 mg/dL (8-26) Creatinine 1.2 mg/dL (0.7-1.3) Estimated GFR (Cockcroft-Gault) 59.3 Glucose Level 86 mg/dL (70-99) Calcium Level 8.0 mg/dL (8.5-10.1) Test 05/14/20 07:34 05/14/20 11:35 05/14/20 17:22 05/14/20 20:04 Glucose (Fingerstick) 84 mg/dL (70-99) 109 mg/dL (70-99) 123 mg/dL (70-99) 104 mg/dL (70-99) Test 05/15/20 04:35 05/15/20 08:00 White Blood Count 9.2 x10^3/uL (4.0-11.0) Red Blood Count 4.53 x10^6/uL (4.30-5.70) Hemoglobin 14.0 g/dL (13.0-17.5) Hematocrit 41.3 % (39.0-53.0) Mean Corpuscular Volume 91 fL (79-100) Mean Corpuscular Hemoglobin 31 pg (25-35) Mean Corpuscular Hemoglobin Concent 34 g/dL (31-37) Red Cell Distribution Width 15.6 % (11.5-14.5) Platelet Count 186 x10^3/uL (140-400) Neutrophils (%) (Auto) 72 % (31-73) Lymphocytes (%) (Auto) 12 % (24-48) Monocytes (%) (Auto) 11 % (0-9) Eosinophils (%) (Auto) 5 % (0-3) Basophils (%) (Auto) 1 % (0-3) Neutrophils # (Auto) 6.6 x10^3/uL (1.8-7.7) Lymphocytes # (Auto) 1.1 x10^3/uL (1.0-4.8) Monocytes # (Auto) 1.0 x10^3/uL (0.0-1.1) Eosinophils # (Auto) 0.4 x10^3/uL (0.0-0.7) Basophils # (Auto) 0.1 x10^3/uL (0.0-0.2) Sodium Level 146 mmol/L (136-145) Potassium Level 3.6 mmol/L (3.5-5.1) Chloride Level 110 mmol/L (98-107) Carbon Dioxide Level 29 mmol/L (21-32) Anion Gap 7 (6-14) Blood Urea Nitrogen 12 mg/dL (8-26) Creatinine 1.0 mg/dL (0.7-1.3) Estimated GFR (Cockcroft-Gault) 73.2 Glucose Level 137 mg/dL (70-99) Calcium Level 8.4 mg/dL (8.5-10.1) Glucose (Fingerstick) 122 mg/dL (70-99) Laboratory Tests Test 05/14/20 11:35 05/14/20 17:22 05/14/20 20:04 05/15/20 04:35 Glucose (Fingerstick) 109 mg/dL (70-99) 123 mg/dL (70-99) 104 mg/dL (70-99) White Blood Count 9.2 x10^3/uL (4.0-11.0) Red Blood Count 4.53 x10^6/uL (4.30-5.70) Hemoglobin 14.0 g/dL (13.0-17.5) Hematocrit 41.3 % (39.0-53.0) Mean Corpuscular Volume 91 fL (79-100) Mean Corpuscular Hemoglobin 31 pg (25-35) Mean Corpuscular Hemoglobin Concent 34 g/dL (31-37) Red Cell Distribution Width 15.6 % (11.5-14.5) Platelet Count 186 x10^3/uL (140-400) Neutrophils (%) (Auto) 72 % (31-73) Lymphocytes (%) (Auto) 12 % (24-48) Monocytes (%) (Auto) 11 % (0-9) Eosinophils (%) (Auto) 5 % (0-3) Basophils (%) (Auto) 1 % (0-3) Neutrophils # (Auto) 6.6 x10^3/uL (1.8-7.7) Lymphocytes # (Auto) 1.1 x10^3/uL (1.0-4.8) Monocytes # (Auto) 1.0 x10^3/uL (0.0-1.1) Eosinophils # (Auto) 0.4 x10^3/uL (0.0-0.7) Basophils # (Auto) 0.1 x10^3/uL (0.0-0.2) Sodium Level 146 mmol/L (136-145) Potassium Level 3.6 mmol/L (3.5-5.1) Chloride Level 110 mmol/L (98-107) Carbon Dioxide Level 29 mmol/L (21-32) Anion Gap 7 (6-14) Blood Urea Nitrogen 12 mg/dL (8-26) Creatinine 1.0 mg/dL (0.7-1.3) Estimated GFR (Cockcroft-Gault) 73.2 Glucose Level 137 mg/dL (70-99) Calcium Level 8.4 mg/dL (8.5-10.1) Test 05/15/20 08:00 Glucose (Fingerstick) 122 mg/dL (70-99) Medications Current Medications Morphine Sulfate (Morphine Sulfate) 2 mg PRN Q15MIN PRN IV/SQ PAIN GREATER THAN 3/10 Last administered on 05/10/20at 18:55; Start 05/10/20 at 18:30; Stop 05/11/20 at 18:29; Status DC Sodium Chloride 1,000 ml @ 1,000 mls/hr Q1H IV Last administered on 05/10/20at 18:54; Start 05/10/20 at 18:16; Stop 05/10/20 at 19:15; Status DC Ondansetron HCl (Zofran) 4 mg 1X ONCE IVP Last administered on 05/10/20at 18:54; Start 05/10/20 at 18:30; Stop 05/10/20 at 18:31; Status DC Iohexol (Omnipaque 300 Mg/ml) 60 ml 1X ONCE IV Last administered on 05/10/20at 19:46; Start 05/10/20 at 20:00; Stop 05/10/20 at 20:01; Status DC Info (CONTRAST GIVEN -- Rx MONITORING) 1 each PRN DAILY PRN MC SEE COMMENTS; Start 05/10/20 at 19:45; Stop 05/12/20 at 19:44; Status DC Magnesium Sulfate 50 ml @ 25 mls/hr 1X ONCE IV Last administered on 05/10/20at 20:00; Start 05/10/20 at 20:00; Stop 05/10/20 at 21:59; Status DC Potassium Chloride/Water 100 ml @ 50 mls/hr 1X ONCE IV Last administered on 05/10/20at 21:21; Start 05/10/20 at 20:00; Stop 05/10/20 at 21:59; Status DC Potassium Chloride (Klor-Con) 40 meq 1X ONCE PO ; Start 05/10/20 at 20:00; Stop 05/10/20 at 20:01; Status DC Piperacillin Sod/ Tazobactam Sod 3.375 gm/Sodium Chloride 50 ml @ 100 mls/hr 1X ONCE IV Last administered on 05/10/20at 21:21; Start 05/10/20 at 21:00; Stop 05/10/20 at 21:29; Status DC Ondansetron HCl (Zofran) 4 mg PRN Q8HRS PRN IV NAUSEA/VOMITING; Start 05/10/20 at 21:00; Stop 05/11/20 at 16:01; Status DC Potassium Chloride/Dextrose/ Sod Cl 1,000 ml @ 125 mls/hr 1X ONCE IV Last administered on 05/10/20at 22:01; Start 05/10/20 at 21:30; Stop 05/11/20 at 05:29; Status DC Lorazepam (Ativan Inj) 1 mg 1X ONCE IVP Last administered on 05/10/20at 22:02; Start 05/10/20 at 22:00; Stop 05/10/20 at 22:01; Status DC Piperacillin Sod/ Tazobactam Sod 3.375 gm/Sodium Chloride 50 ml @ 100 mls/hr Q6HRS IV Last administered on 05/15/20at 06:09; Start 05/11/20 at 06:00 Ondansetron HCl (Zofran) 4 mg PRN Q6HRS PRN IVP NAUSEA/VOMITING Last administered on 05/15/20at 03:07; Start 05/10/20 at 23:00 Morphine Sulfate (Morphine Sulfate) 2 mg PRN Q1HR PRN IV MODERATE-SEVERE PAIN (1ST) Last administered on 05/11/20at 20:01; Start 05/10/20 at 23:00; Stop 05/13/20 at 08:00; Status DC Hydromorphone HCl (Dilaudid) 0.2 mg PRN Q1HR PRN IV MODERATE PAIN; Start 05/10/20 at 23:00; Stop 05/12/20 at 12:12; Status DC Hydromorphone HCl (Dilaudid) 0.4 mg PRN Q1HR PRN IV SEVERE PAIN; Start 05/10/20 at 23:00; Stop 05/12/20 at 12:12; Status DC Heparin Sodium (Porcine) (Heparin Sodium) 5,000 unit Q12HR SQ Last administered on 05/14/20at 21:13; Start 05/11/20 at 09:00 Sodium Chloride 1,000 ml @ 100 mls/hr Q10H IV Last administered on 05/14/20at 05:49; Start 05/10/20 at 23:15; Stop 05/14/20 at 07:47; Status DC Influenza Virus Vaccine Quadrival (Fluzone Quad Syringe) 0.5 ml ONCE ONCE VAX IM Last administered on 05/11/20at 11:58; Start 05/11/20 at 09:00; Stop 05/11/20 at 09:01; Status DC Potassium Chloride/Dextrose/ Sod Cl 1,000 ml @ 75 mls/hr [id number] PRN IV . Last administered on 05/11/20at 09:07; Start 05/11/20 at 08:15; Stop 05/14/20 at 07:46; Status DC Sodium Monofluorophosphate (Fleet Adult) 133 ml 1X ONCE OK Last administered on 05/11/20at 08:45; Start 05/11/20 at 08:45; Stop 05/11/20 at 08:46; Status DC Ringer's Solution 1,000 ml @ 75 mls/hr 1X ONCE IV Last administered on 05/11/20at 09:56; Start 05/11/20 at 10:00; Stop 05/11/20 at 23:19; Status DC Propofol (Diprivan) 200 mg STK-MED ONCE IV ; Start 05/11/20 at 10:33; Stop at 10:33; Status DC Pantoprazole Sodium (PROTONIX VIAL for IV PUSH) 40 mg BIDAC IVP Last administered on 05/14/20at 16:00; Start 05/11/20 at 11:00 Ringer's Solution 1,000 ml @ 30 mls/hr Q24H IV Last administered on 05/12/20at 09:09; Start 05/12/20 at 07:00; Stop 05/12/20 at 18:59; Status DC Lidocaine HCl (Xylocaine-Mpf 1% 2ml Vial) 2 ml PRN 1X PRN ID PRIOR TO IV START; Start 05/12/20 at 07:00; Stop 05/13/20 at 06:59; Status DC Prochlorperazine Edisylate (Compazine) 5 mg PACU PRN PRN IV NAUSEA, MRX1; Start 05/12/20 at 07:00; Stop 05/13/20 at 06:59; Status DC Potassium Chloride/Water 100 ml @ 100 mls/hr Q1H IV Last administered on 05/11/20at 18:45; Start 05/11/20 at 17:15; Stop 05/11/20 at 19:14; Status DC Potassium Chloride/Water 100 ml @ 100 mls/hr Q1H IV Last administered on 05/12/20at 06:17; Start 05/11/20 at 23:30; Stop 05/12/20 at 03:29; Status DC Potassium Chloride/Water 100 ml @ 100 mls/hr Q1H IV Last administered on 05/12/20at 23:18; Start 05/12/20 at 09:00; Stop 05/12/20 at 13:02; Status DC Ketamine HCl (Ketamine) 50 mg STK-MED ONCE .ROUTE ; Start 05/12/20 at 08:39; Stop 05/12/20 at 08:39; Status DC Rocuronium [place] (Zemuron) 100 mg STK-MED ONCE .ROUTE ; Start 05/12/20 at 08:39; Stop 05/12/20 at 08:39; Status DC Fentanyl Citrate (Fentanyl 2ml Vial) 100 mcg STK-MED ONCE .ROUTE ; Start 05/12/20 at 08:39; Stop 05/12/20 at 08:39; Status DC Desflurane (Suprane) 60 ml STK-MED ONCE IH ; Start 05/12/20 at 08:40; Stop 05/12/20 at 08:40; Status DC Propofol (Diprivan) 200 mg STK-MED ONCE IV ; Start 05/12/20 at 08:40; Stop 05/12/20 at 08:40; Status DC Dexamethasone Sodium Phosphate (Decadron) 4 mg STK-MED ONCE .ROUTE ; Start 05/12/20 at 08:40; Stop 05/12/20 at 08:41; Status DC Phenylephrine HCl (Layo-Synephrine Inj) 10 mg STK-MED ONCE .ROUTE ; Start 05/12/20 at 08:41; Stop 05/12/20 at 08:41; Status DC Lidocaine HCl (Lidocaine Pf 2% Vial) 5 ml STK-MED ONCE .ROUTE ; Start 05/12/20 at 08:41; Stop 05/12/20 at 08:41; Status DC Ondansetron HCl (Zofran) 4 mg STK-MED ONCE .ROUTE ; Start 05/12/20 at 08:41; Stop 05/12/20 at 08:41; Status DC Famotidine (Pepcid Vial) 20 mg STK-MED ONCE .ROUTE ; Start 05/12/20 at 08:41; Stop 05/12/20 at 08:41; Status DC Fentanyl Citrate (Fentanyl 2ml Vial) 100 mcg STK-MED ONCE .ROUTE ; Start 05/12/20 at 09:00; Stop 05/12/20 at 09:00; Status DC Fentanyl Citrate (Fentanyl 2ml Vial) 100 mcg 1X ONCE IVP Last administered on 05/12/20at 09:12; Start 05/12/20 at 09:15; Stop 05/12/20 at 09:16; Status DC Succinylcholine Chloride (Anectine) 200 mg STK-MED ONCE .ROUTE ; Start 05/12/20 at 09:41; Stop 05/12/20 at 09:42; Status DC Sugammadex Sodium (Bridion) 200 mg 1X ONCE IVP ; Start 05/12/20 at 10:15; Stop 05/12/20 at 10:16; Status DC Remifentanil HCl (Ultiva) 1 mg STK-MED ONCE IV ; Start 05/12/20 at 10:14; Stop 05/12/20 at 10:15; Status DC Ropivacaine (Naropin 0.5%) 20 ml STK-MED ONCE .ROUTE ; Start 05/12/20 at 11:38; Stop 05/12/20 at 11:38; Status DC Naloxone HCl (Narcan) 0.4 mg PRN Q2MIN PRN IV SEE INSTRUCTIONS; Start 05/12/20 at 12:15 Sodium Chloride 1,000 ml @ 25 mls/hr Q24H IV Last administered on 05/14/20at 12:07; Start 05/12/20 at 12:08 Hydromorphone HCl 30 ml @ 0 mls/hr CONT PRN PRN IV PER PROTOCOL Last administered on 05/14/20at 08:45; Start 05/12/20 at 12:15 Ondansetron HCl (Zofran) 4 mg PRN Q6HRS PRN IV NAUSEA/VOMITING; Start 05/12/20 at 13:00; Stop 05/13/20 at 08:00; Status DC Fentanyl Citrate (Fentanyl 2ml Vial) 25 mcg PRN Q5MIN PRN IV MILD PAIN 1-3; Start 05/12/20 at 13:00; Stop 05/13/20 at 08:00; Status DC Fentanyl Citrate (Fentanyl 2ml Vial) 50 mcg PRN Q5MIN PRN IV MODERATE TO SEVERE PAIN Last administered on 05/12/20at 12:59; Start 05/12/20 at 13:00; Stop 05/13/20 at 08:00; Status DC Morphine Sulfate (Morphine Sulfate) 1 mg PRN Q10MIN PRN IV SEVERE PAIN 7-10; Start 05/12/20 at 13:00; Stop 05/13/20 at 08:00; Status DC Ringer's Solution 1,000 ml @ 30 mls/hr Q24H IV ; Start 05/12/20 at 12:54; Stop 05/13/20 at 00:53; Status DC Lidocaine HCl (Xylocaine-Mpf 1% 2ml Vial) 2 ml PRN 1X PRN ID PRIOR TO IV START; Start 05/12/20 at 13:00; Stop 05/13/20 at 12:59; Status DC Hydromorphone HCl (Dilaudid) 0.5 mg PRN Q10MIN PRN IV SEV PAIN, Second choice; Start 05/12/20 at 13:00; Stop 05/13/20 at 08:00; Status DC Prochlorperazine Edisylate (Compazine) 5 mg PACU PRN PRN IV NAUSEA, MRX1; Start 05/12/20 at 13:00; Stop 05/13/20 at 08:00; Status DC Potassium Chloride/Dextrose/ Sod Cl 1,000 ml @ 75 mls/hr [id number] IV Last administered on 05/14/20at 21:41; Start 05/14/20 at 08:00 Digoxin (Lanoxin) 125 mcg DAILY PO ; Start 05/16/20 at 09:00 Metoprolol Tartrate (Lopressor) 50 mg BID PO ; Start 05/15/20 at 21:00 Metoprolol Tartrate (Lopressor Vial) 5 mg 1X ONCE IVP Last administered on 05/15/20at 06:07; Start 05/15/20 at 06:00; Stop 05/15/20 at 06:01; Status DC Digoxin (Lanoxin) 125 mcg 1X ONCE IV Last administered on 05/15/20at 06:27; Start 05/15/20 at 06:00; Stop 05/15/20 at 06:01; Status DC Digoxin (Lanoxin) 125 mcg 1X ONCE PO ; Start 05/15/20 at 06:00; Stop 05/15/20 at 06:01; Status DC Metoprolol Tartrate (Lopressor) 50 mg 1X ONCE PO Last administered on 05/15/20at 06:08; Start 05/15/20 at 06:00; Stop 05/15/20 at 06:01; Status DC Active Scripts Active Polyethylene Glycol 3350 17 Gm Powd.pack 17 Gm PO PRN DAILY PRN 28 Days Bisacodyl 5 Mg Tablet. 5 Mg PO PRN DAILY PRN 14 Days Acetaminophen 500 Mg Tablet 500 Mg PO PRN Q6HRS PRN 30 Days Aspirin Ec (Aspirin) 81 Mg Tablet. 81 Mg PO [id number] 30 Days Digoxin 125 Mcg Tablet 125 Mcg PO DAILY 30 Days Eliquis (Apixaban) 5 Mg Tablet 5 Mg PO BID 30 Days Duoneb 0.5-3(2.5) Mg/3 Ml (Albuterol/Ipratropium) 3 Ml Ampul.neb 3 Ml NEB RTQID 30 Days Vitamin C (Ascorbic Acid) 500 Mg Tablet 500 Mg PO DAILY 30 Days Thera-M Tablet (Multivits,Ca,Minerals/Iron/Fa) 1 Each Tablet 1 Tab PO DAILY 30 Days Pantoprazole Sodium (Pantoprazole Sodium) 40 Mg Tablet. 40 Mg PO DAILYAC 30 Days Klor-Con M20 (Potassium Chloride) 20 Meq Tab.er.prt 20 Meq PO DAILYWBKFT 30 Days Percocet 5-325 Mg Tablet (Oxycodone/Acetaminophen) 1 Each Tablet 1 Tab PO PRN Q6HRS PRN 6 Days Reported Symbicort 80-4.5 Mcg Inhaler (Budesonide/Formoterol Fumarate) 10.2 Gm Hfa.aer.ad 2 Puff IH BID Metoprolol Tartrate 50 Mg Tablet 1 Tab PO BID Vitals/I & O Vital Sign - Last 24 Hours 05/14/20 05/14/20 05/14/20 05/14/20 09:27 11:52 15:47 19:00 Temp 97.7 98.9 99.0 97.7 98.9 99.0 Pulse 92 96 110 Resp 18 18 18 B/P (MAP) 159/76 (103) 143/77 (99) 157/94 (115) Pulse Ox 96 93 92 96 O2 Delivery Nasal Cannula Nasal Cannula Nasal Cannula Nasal Cannula O2 Flow Rate 2.0 2.0 2.0 2.0 05/14/20 05/14/20 05/14/20 05/15/20 21:10 21:10 23:00 00:00 Temp 100.8 100.8 Pulse 107 Resp 25 18 30 B/P (MAP) 108/84 (92) Pulse Ox 94 O2 Delivery Nasal Cannula Nasal Cannula Nasal Cannula Nasal Cannula O2 Flow Rate 2.0 2.0 2.0 2.0 05/15/20 05/15/20 05/15/20 05/15/20 03:00 04:30 06:07 06:08 Temp 98.8 98.8 Pulse 104 135 135 Resp 18 29 B/P (MAP) 145/79 (101) 139/72 139/72 Pulse Ox 97 O2 Delivery Nasal Cannula Nasal Cannula O2 Flow Rate 2.0 2.0 05/15/20 05/15/20 05/15/20 06:27 06:38 07:20 Temp 98.7 98.7 Pulse 128 112 100 Resp 23 18 B/P (MAP) 107/62 124/76 (92) 110/67 (81) Pulse Ox 96 O2 Delivery Nasal Cannula Nasal Cannula O2 Flow Rate 3.0 3.0 Intake and Output 05/14/20 05/14/20 05/15/20 15:00 23:00 07:00 Intake Total 450 ml 1050 ml 400 ml Output Total 250 ml 960 ml 300 ml Balance 200 ml 90 ml 100 ml Justicifation of Admission Dx: Justifications for Admission: Justification of Admission Dx: Yes (SBO, VOLVULUS, HYPOKALEMIA) LAUREL GLASS MD May 15, 2020 08:47
--- NOTE | 2020-05-15 09:03 | PDOC ---
KAYLI HOWARD MEDICAL PLANNER 05/15/20 0903: SURGICAL PROGRESS NOTE DATE: 05/15/20 TIME: 09:02 Subjective had emesis overnight--had some clears ordered Vital Signs Vital Signs Date Time Temp Pulse Resp B/P (MAP) Pulse Ox O2 Delivery O2 Flow Rate FiO2 05/15/20 07:20 98.7 100 18 110/67 (81) 96 Nasal Cannula 3.0 98.7 I&O Intake and Output 05/15/20 07:00 Intake Total 1900 ml Output Total 1510 ml Balance 390 ml Intake Oral 400 ml IV Total 1500 ml Output Urine Total 1060 ml Gastric Drainage Total 250 ml Emesis 200 ml # Voids 2 General: Cooperative Abdomen: Soft, Other (dressing intact, mildly distended ) Labs Laboratory Tests Test 05/13/20 11:53 05/13/20 16:40 05/13/20 20:27 05/14/20 06:35 Glucose (Fingerstick) 113 mg/dL (70-99) 86 mg/dL (70-99) 85 mg/dL (70-99) White Blood Count 9.2 x10^3/uL (4.0-11.0) Red Blood Count 4.19 x10^6/uL (4.30-5.70) Hemoglobin 13.2 g/dL (13.0-17.5) Hematocrit 38.4 % (39.0-53.0) Mean Corpuscular Volume 92 fL (79-100) Mean Corpuscular Hemoglobin 31 pg (25-35) Mean Corpuscular Hemoglobin Concent 34 g/dL (31-37) Red Cell Distribution Width 15.6 % (11.5-14.5) Platelet Count 169 x10^3/uL (140-400) Neutrophils (%) (Auto) 70 % (31-73) Lymphocytes (%) (Auto) 12 % (24-48) Monocytes (%) (Auto) 9 % (0-9) Eosinophils (%) (Auto) 8 % (0-3) Basophils (%) (Auto) 1 % (0-3) Neutrophils # (Auto) 6.4 x10^3/uL (1.8-7.7) Lymphocytes # (Auto) 1.1 x10^3/uL (1.0-4.8) Monocytes # (Auto) 0.8 x10^3/uL (0.0-1.1) Eosinophils # (Auto) 0.7 x10^3/uL (0.0-0.7) Basophils # (Auto) 0.1 x10^3/uL (0.0-0.2) Sodium Level 149 mmol/L (136-145) Potassium Level 3.5 mmol/L (3.5-5.1) Chloride Level 113 mmol/L (98-107) Carbon Dioxide Level 28 mmol/L (21-32) Anion Gap 8 (6-14) Blood Urea Nitrogen 20 mg/dL (8-26) Creatinine 1.2 mg/dL (0.7-1.3) Estimated GFR (Cockcroft-Gault) 59.3 Glucose Level 86 mg/dL (70-99) Calcium Level 8.0 mg/dL (8.5-10.1) Test 05/14/20 07:34 05/14/20 11:35 05/14/20 17:22 05/14/20 20:04 Glucose (Fingerstick) 84 mg/dL (70-99) 109 mg/dL (70-99) 123 mg/dL (70-99) 104 mg/dL (70-99) Test 05/15/20 04:35 05/15/20 08:00 White Blood Count 9.2 x10^3/uL (4.0-11.0) Red Blood Count 4.53 x10^6/uL (4.30-5.70) Hemoglobin 14.0 g/dL (13.0-17.5) Hematocrit 41.3 % (39.0-53.0) Mean Corpuscular Volume 91 fL (79-100) Mean Corpuscular Hemoglobin 31 pg (25-35) Mean Corpuscular Hemoglobin Concent 34 g/dL (31-37) Red Cell Distribution Width 15.6 % (11.5-14.5) Platelet Count 186 x10^3/uL (140-400) Neutrophils (%) (Auto) 72 % (31-73) Lymphocytes (%) (Auto) 12 % (24-48) Monocytes (%) (Auto) 11 % (0-9) Eosinophils (%) (Auto) 5 % (0-3) Basophils (%) (Auto) 1 % (0-3) Neutrophils # (Auto) 6.6 x10^3/uL (1.8-7.7) Lymphocytes # (Auto) 1.1 x10^3/uL (1.0-4.8) Monocytes # (Auto) 1.0 x10^3/uL (0.0-1.1) Eosinophils # (Auto) 0.4 x10^3/uL (0.0-0.7) Basophils # (Auto) 0.1 x10^3/uL (0.0-0.2) Sodium Level 146 mmol/L (136-145) Potassium Level 3.6 mmol/L (3.5-5.1) Chloride Level 110 mmol/L (98-107) Carbon Dioxide Level 29 mmol/L (21-32) Anion Gap 7 (6-14) Blood Urea Nitrogen 12 mg/dL (8-26) Creatinine 1.0 mg/dL (0.7-1.3) Estimated GFR (Cockcroft-Gault) 73.2 Glucose Level 137 mg/dL (70-99) Calcium Level 8.4 mg/dL (8.5-10.1) Glucose (Fingerstick) 122 mg/dL (70-99) Laboratory Tests Test 05/14/20 11:35 05/14/20 17:22 05/14/20 20:04 05/15/20 04:35 Glucose (Fingerstick) 109 mg/dL (70-99) 123 mg/dL (70-99) 104 mg/dL (70-99) White Blood Count 9.2 x10^3/uL (4.0-11.0) Red Blood Count 4.53 x10^6/uL (4.30-5.70) Hemoglobin 14.0 g/dL (13.0-17.5) Hematocrit 41.3 % (39.0-53.0) Mean Corpuscular Volume 91 fL (79-100) Mean Corpuscular Hemoglobin 31 pg (25-35) Mean Corpuscular Hemoglobin Concent 34 g/dL (31-37) Red Cell Distribution Width 15.6 % (11.5-14.5) Platelet Count 186 x10^3/uL (140-400) Neutrophils (%) (Auto) 72 % (31-73) Lymphocytes (%) (Auto) 12 % (24-48) Monocytes (%) (Auto) 11 % (0-9) Eosinophils (%) (Auto) 5 % (0-3) Basophils (%) (Auto) 1 % (0-3) Neutrophils # (Auto) 6.6 x10^3/uL (1.8-7.7) Lymphocytes # (Auto) 1.1 x10^3/uL (1.0-4.8) Monocytes # (Auto) 1.0 x10^3/uL (0.0-1.1) Eosinophils # (Auto) 0.4 x10^3/uL (0.0-0.7) Basophils # (Auto) 0.1 x10^3/uL (0.0-0.2) Sodium Level 146 mmol/L (136-145) Potassium Level 3.6 mmol/L (3.5-5.1) Chloride Level 110 mmol/L (98-107) Carbon Dioxide Level 29 mmol/L (21-32) Anion Gap 7 (6-14) Blood Urea Nitrogen 12 mg/dL (8-26) Creatinine 1.0 mg/dL (0.7-1.3) Estimated GFR (Cockcroft-Gault) 73.2 Glucose Level 137 mg/dL (70-99) Calcium Level 8.4 mg/dL (8.5-10.1) Test 05/15/20 08:00 Glucose (Fingerstick) 122 mg/dL (70-99) Problem List Problems Medical Problems: (1) Abdominal pain Status: Acute (2) Sigmoid volvulus Status: Acute (3) Small bowel obstruction Status: Acute Assessment/Plan NPO--await bowel function now in Afib, cardiac consulted Justicifation of Admission Dx: Justifications for Admission: Justification of Admission Dx: Yes (SBO, VOLVULUS, HYPOKALEMIA) SHELIA CASTILLO MD 05/15/20 1253: SURGICAL PROGRESS NOTE Assessment/Plan Above noted; I did NOT order clear liquids on this patient. The orders show clear liquids under my name at 2:10 pm. Suspect the nurse placed this order erroneously as we did not want to start po until the return of bowel function. I discussed this with his nurse this AM and she is going to investigate what happened. KAYLI HOWARD APRN May 15, 2020 09:03 SHELIA CASTILLO MD May 15, 2020 12:53
[2020-05-15] MEDS: PANTOPRAZOLE IV PUSH 40 MG VIAL. IVP SCH ×2 (09:32→17:41)
--- NOTE | 2020-05-15 11:27 | PDOC2 ---
RAMIRO LAGUERRE GUN PERFORATOR LOADER 05/15/20 1127: CARDIAC CONSULT DATE OF CONSULT Date of Consult DATE: 05/15/20 TIME: 11:10 REASON FOR CONSULT Reason for Consult: AFIB with RVR REFERRING PHYSICIAN Referring Physician: Dr. Morales SOURCE Source: Chart review, Patient HISTORY OF PRESENT ILLNESS HISTORY OF PRESENT ILLNESS This is a 74 yo male who initially presented secondary to abdominal pain. CT noted with sigmoid volvulus. Required sigmoid colon resection. Was noted in AFIB with RVR, which prompted this consult. Patient has a history of PAD. Underwent NEUROSURGICAL NURSE of LSFA earlier this year. Was to have outpatient NEUROSURGICAL NURSE to right SFA, but was lost in followup. He denies any chest pain, palpitations, dizziness, diaphoresis, or SOA. Patient has a history of AFIB and is on Dig and metoprolol. Has not received these as he has been NPO. PAST MEDICAL HISTORY Past Medical History Cardiovascular: CAD, HTN, Hyperlipidemia, AFIB, PAD Pulmonary: COPD CENTRAL NERVOUS SYSTEM: Other (No pertinent history) GI: Other (small hiatal hernia) Heme/Onc: No pertinent hx Hepatobiliary: No pertinent hx Psych: Anxiety, Other (PTSD) Musculoskeletal: Osteoarthritis Rheumatologic: No pertinent hx Infectious disease: No pertinent hx, Other (C-diff) ENT: No pertinent hx Renal/: No pertinent hx Endocrine: No pertinent hx Dermatology: Other (venous dermatitis) PAST SURGICAL HISTORY Past Surgical History Appendectomy, Tonsillectomy, Other (PCI/stent) FAMILY HISTORY Family History: Heart Disease SOCIAL HISTORY Smoke: 1 pack per day ALCOHOL: none Drugs: None Lives: Alone CURRENT MEDICATIONS CURRENT MEDICATIONS Current Medications Medications (Trade) Dose Ordered Sig/Marcio Route PRN Reason Start Time Stop Time Status Last Admin Dose Admin Metoprolol Tartrate (Lopressor Vial) 5 mg 1X ONCE IVP 05/15/20 06:00 05/15/20 06:01 DC 05/15/20 06:07 Digoxin (Lanoxin) 125 mcg 1X ONCE IV 05/15/20 06:00 05/15/20 06:01 DC 05/15/20 06:27 Metoprolol Tartrate (Lopressor) 50 mg 1X ONCE PO 05/15/20 06:00 05/15/20 06:01 DC 05/15/20 06:08 ALLERGIES ALLERGIES: Coded Allergies: No Known Drug Allergies (Unverified , 05/11/20) ROS Review of System 14 point ROS conducted with pertinent positives noted above in hPi PHYSICAL EXAM PHYSICAL EXAM General: Alert, Oriented X3, Cooperative, No acute distress HEENT: Atraumatic, Mucous membr. moist/pink Lungs: Diminished bases Heart: Other (AFIB with RVR) Abdomen: Soft, No tenderness Extremities: No cyanosis, No edema. Ext warm to touch. 2+ left DP pulse. No opens wounds Neuro: Normal speech, Sensation intact Psych/Mental Status: Mental status NL, Mood NL MUSCULOSKELETAL: Osteoarthritic changes both hands VITALS/I&O VITALS/I&O: Vital Signs Date Time Temp Pulse Resp B/P (MAP) Pulse Ox O2 Delivery O2 Flow Rate FiO2 05/15/20 10:54 98.9 120 22 109/68 (82) 98 Nasal Cannula 3.0 98.9 I & O 05/14/20 05/14/20 05/15/20 15:00 23:00 07:00 Intake Total 450 ml 1050 ml 400 ml Output Total 250 ml 960 ml 300 ml Balance 200 ml 90 ml 100 ml LABS Lab: Laboratory Tests Test 05/14/20 11:35 05/14/20 17:22 05/14/20 20:04 05/15/20 04:35 Glucose (Fingerstick) 109 mg/dL (70-99) H 123 mg/dL (70-99) H 104 mg/dL (70-99) H White Blood Count 9.2 x10^3/uL (4.0-11.0) Red Blood Count 4.53 x10^6/uL (4.30-5.70) Hemoglobin 14.0 g/dL (13.0-17.5) Hematocrit 41.3 % (39.0-53.0) Mean Corpuscular Volume 91 fL (79-100) Mean Corpuscular Hemoglobin 31 pg (25-35) Mean Corpuscular Hemoglobin Concent 34 g/dL (31-37) Red Cell Distribution Width 15.6 % (11.5-14.5) H Platelet Count 186 x10^3/uL (140-400) Neutrophils (%) (Auto) 72 % (31-73) Lymphocytes (%) (Auto) 12 % (24-48) L Monocytes (%) (Auto) 11 % (0-9) H Eosinophils (%) (Auto) 5 % (0-3) H Basophils (%) (Auto) 1 % (0-3) Neutrophils # (Auto) 6.6 x10^3/uL (1.8-7.7) Lymphocytes # (Auto) 1.1 x10^3/uL (1.0-4.8) Monocytes # (Auto) 1.0 x10^3/uL (0.0-1.1) Eosinophils # (Auto) 0.4 x10^3/uL (0.0-0.7) Basophils # (Auto) 0.1 x10^3/uL (0.0-0.2) Sodium Level 146 mmol/L (136-145) H Potassium Level 3.6 mmol/L (3.5-5.1) Chloride Level 110 mmol/L (98-107) H Carbon Dioxide Level 29 mmol/L (21-32) Anion Gap 7 (6-14) Blood Urea Nitrogen 12 mg/dL (8-26) Creatinine 1.0 mg/dL (0.7-1.3) Estimated GFR (Cockcroft-Gault) 73.2 Glucose Level 137 mg/dL (70-99) H Calcium Level 8.4 mg/dL (8.5-10.1) L Test 05/15/20 08:00 Glucose (Fingerstick) 122 mg/dL (70-99) H Laboratory Tests 05/15/20 04:35 Laboratory Tests 05/15/20 04:35 ECHOCARDIOGRAM ECHOCARDIOGRAM <Conclusion> Technically difficult study. The left ventricle is normal size. The systolic function is moderately impaired. The Ejection Fraction is estimated at 30-35%. There is global hypokinesis of the left ventricle. There is borderline to mild concentric left ventricular hypertrophy. Doppler and Color Flow revealed no significant aortic regurgitation. There is no significant aortic valvular stenosis. Doppler and Color-flow revealed trace mitral regurgitation. Doppler and Color Flow revealed trace tricuspid regurgitation with an estimated PAP of 36 mmHg. DATE: 08/26/19 172 HEART CATH HEART CATH Conclusion 1. Severe biventricular failure. 2. Severe secondary pulmonary HTN 3. Low cardiac output. 4. Two vessel CAD (no critical lesions for intervention) 5. Severe PAD. RSFA occlusion and LSFA with 70% stenosis 6. Successful NEUROSURGICAL NURSE of the LSFA with a 5.0/40 DCB with excellent 3 vessel run-off to the foot. Recommendations Consider staged PVI of the right leg in 2 weeks depending on wound healing Start milrinone gtt and aggressive diuresis. DATE: 08/27/19 1343 ASSESSMENT/PLAN ASSESSMENT/PLAN 1. Abdominal pain. CT with sigmoid volvulus. S/p sigmoid colon resection 05/12 2. PAFIB with RVR; due to missed metoprolol, digoxin 3. 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 Appears compensated 4. CAD; recent cath with 2-vessel disease. No lesions needing intervention noted 5. PAD; s/p recent NEUROSURGICAL NURSE of the LSFA. Has FREIGHT REPRESENTATIVE of the right SFA. No critical limb ischemia Recommendations Resume Digoxin and metoprolol for rate control Will give dose of IV dig and rate is elevate Resume Eliquis for stroke prophylaxis when okay with surgical team Secondary prevention; ASA. Add statin Add ACEi if BP remains consistently adequate Outpatient f/u of PAD with consideration of NEUROSURGICAL NURSE of the right SFA FREIGHT REPRESENTATIVE Repeat echo on an outpatient basis to re-assess LV systolic function, assess nee d for AICD Postop management as per GS team. GRACY BRADSHAW MD 05/15/20 1642: CARDIAC CONSULT ASSESSMENT/PLAN ASSESSMENT/PLAN The patient was seen and interviewed as well as examined at the bedside. The chart was reviewed. The case was discussed. Agree with the plan of care. RAMIRO LAGUERRE APRN May 15, 2020 11:27 GRACY BRADSHAW MD May 15, 2020 16:42
[2020-05-15] MEDS: POTASSIUM CL 40MEQ D5-0.45NACL 1,000 ML IV SCH ×2 (11:41→23:00)
[2020-05-15] MEDS: HEPARIN for SUB-Q USE 5,000 UNIT/ML VIAL. SQ SCH ×2 (11:47→20:12)
[2020-05-15] MEDS: IV NORMAL SALINE 1000ML BAG 1,000 ML IV SCH (12:08)
--- NOTE | 2020-05-15 13:35 | PDOC ---
G I PROGRESS NOTE Subjective Got clears last night-->emesis. Hasn't vomited recently. No stool, flatus. Physical Exam Lungs clear. IRRR Abdomen distended. Hear occasional bowel sounds. Review of Relevant I have reviewed the following items ben (where applicable) has been applied. Labs Laboratory Tests Test 05/13/20 16:40 05/13/20 20:27 05/14/20 06:35 05/14/20 07:34 Glucose (Fingerstick) 86 mg/dL (70-99) 85 mg/dL (70-99) 84 mg/dL (70-99) White Blood Count 9.2 x10^3/uL (4.0-11.0) Red Blood Count 4.19 x10^6/uL (4.30-5.70) Hemoglobin 13.2 g/dL (13.0-17.5) Hematocrit 38.4 % (39.0-53.0) Mean Corpuscular Volume 92 fL (79-100) Mean Corpuscular Hemoglobin 31 pg (25-35) Mean Corpuscular Hemoglobin Concent 34 g/dL (31-37) Red Cell Distribution Width 15.6 % (11.5-14.5) Platelet Count 169 x10^3/uL (140-400) Neutrophils (%) (Auto) 70 % (31-73) Lymphocytes (%) (Auto) 12 % (24-48) Monocytes (%) (Auto) 9 % (0-9) Eosinophils (%) (Auto) 8 % (0-3) Basophils (%) (Auto) 1 % (0-3) Neutrophils # (Auto) 6.4 x10^3/uL (1.8-7.7) Lymphocytes # (Auto) 1.1 x10^3/uL (1.0-4.8) Monocytes # (Auto) 0.8 x10^3/uL (0.0-1.1) Eosinophils # (Auto) 0.7 x10^3/uL (0.0-0.7) Basophils # (Auto) 0.1 x10^3/uL (0.0-0.2) Sodium Level 149 mmol/L (136-145) Potassium Level 3.5 mmol/L (3.5-5.1) Chloride Level 113 mmol/L (98-107) Carbon Dioxide Level 28 mmol/L (21-32) Anion Gap 8 (6-14) Blood Urea Nitrogen 20 mg/dL (8-26) Creatinine 1.2 mg/dL (0.7-1.3) Estimated GFR (Cockcroft-Gault) 59.3 Glucose Level 86 mg/dL (70-99) Calcium Level 8.0 mg/dL (8.5-10.1) Test 05/14/20 11:35 05/14/20 17:22 05/14/20 20:04 05/15/20 04:35 Glucose (Fingerstick) 109 mg/dL (70-99) 123 mg/dL (70-99) 104 mg/dL (70-99) White Blood Count 9.2 x10^3/uL (4.0-11.0) Red Blood Count 4.53 x10^6/uL (4.30-5.70) Hemoglobin 14.0 g/dL (13.0-17.5) Hematocrit 41.3 % (39.0-53.0) Mean Corpuscular Volume 91 fL (79-100) Mean Corpuscular Hemoglobin 31 pg (25-35) Mean Corpuscular Hemoglobin Concent 34 g/dL (31-37) Red Cell Distribution Width 15.6 % (11.5-14.5) Platelet Count 186 x10^3/uL (140-400) Neutrophils (%) (Auto) 72 % (31-73) Lymphocytes (%) (Auto) 12 % (24-48) Monocytes (%) (Auto) 11 % (0-9) Eosinophils (%) (Auto) 5 % (0-3) Basophils (%) (Auto) 1 % (0-3) Neutrophils # (Auto) 6.6 x10^3/uL (1.8-7.7) Lymphocytes # (Auto) 1.1 x10^3/uL (1.0-4.8) Monocytes # (Auto) 1.0 x10^3/uL (0.0-1.1) Eosinophils # (Auto) 0.4 x10^3/uL (0.0-0.7) Basophils # (Auto) 0.1 x10^3/uL (0.0-0.2) Sodium Level 146 mmol/L (136-145) Potassium Level 3.6 mmol/L (3.5-5.1) Chloride Level 110 mmol/L (98-107) Carbon Dioxide Level 29 mmol/L (21-32) Anion Gap 7 (6-14) Blood Urea Nitrogen 12 mg/dL (8-26) Creatinine 1.0 mg/dL (0.7-1.3) Estimated GFR (Cockcroft-Gault) 73.2 Glucose Level 137 mg/dL (70-99) Calcium Level 8.4 mg/dL (8.5-10.1) Free Thyroxine 1.57 ng/dL (0.76-1.46) Test 05/15/20 08:00 05/15/20 11:23 Glucose (Fingerstick) 122 mg/dL (70-99) 114 mg/dL (70-99) Laboratory Tests Test 05/14/20 17:22 05/14/20 20:04 05/15/20 04:35 05/15/20 08:00 Glucose (Fingerstick) 123 mg/dL (70-99) 104 mg/dL (70-99) 122 mg/dL (70-99) White Blood Count 9.2 x10^3/uL (4.0-11.0) Red Blood Count 4.53 x10^6/uL (4.30-5.70) Hemoglobin 14.0 g/dL (13.0-17.5) Hematocrit 41.3 % (39.0-53.0) Mean Corpuscular Volume 91 fL (79-100) Mean Corpuscular Hemoglobin 31 pg (25-35) Mean Corpuscular Hemoglobin Concent 34 g/dL (31-37) Red Cell Distribution Width 15.6 % (11.5-14.5) Platelet Count 186 x10^3/uL (140-400) Neutrophils (%) (Auto) 72 % (31-73) Lymphocytes (%) (Auto) 12 % (24-48) Monocytes (%) (Auto) 11 % (0-9) Eosinophils (%) (Auto) 5 % (0-3) Basophils (%) (Auto) 1 % (0-3) Neutrophils # (Auto) 6.6 x10^3/uL (1.8-7.7) Lymphocytes # (Auto) 1.1 x10^3/uL (1.0-4.8) Monocytes # (Auto) 1.0 x10^3/uL (0.0-1.1) Eosinophils # (Auto) 0.4 x10^3/uL (0.0-0.7) Basophils # (Auto) 0.1 x10^3/uL (0.0-0.2) Sodium Level 146 mmol/L (136-145) Potassium Level 3.6 mmol/L (3.5-5.1) Chloride Level 110 mmol/L (98-107) Carbon Dioxide Level 29 mmol/L (21-32) Anion Gap 7 (6-14) Blood Urea Nitrogen 12 mg/dL (8-26) Creatinine 1.0 mg/dL (0.7-1.3) Estimated GFR (Cockcroft-Gault) 73.2 Glucose Level 137 mg/dL (70-99) Calcium Level 8.4 mg/dL (8.5-10.1) Free Thyroxine 1.57 ng/dL (0.76-1.46) Test 05/15/20 11:23 Glucose (Fingerstick) 114 mg/dL (70-99) Vitals/I & O Vital Sign - Last 24 Hours 05/14/20 05/14/20 05/14/20 05/14/20 15:47 19:00 21:10 21:10 Temp 98.9 99.0 98.9 99.0 Pulse 96 110 Resp 18 18 25 B/P (MAP) 143/77 (99) 157/94 (115) Pulse Ox 92 96 O2 Delivery Nasal Cannula Nasal Cannula Nasal Cannula Nasal Cannula O2 Flow Rate 2.0 2.0 2.0 2.0 05/14/20 05/15/20 05/15/20 05/15/20 23:00 00:00 03:00 04:30 Temp 100.8 98.8 100.8 98.8 Pulse 107 104 Resp 18 30 18 29 B/P (MAP) 108/84 (92) 145/79 (101) Pulse Ox 94 97 O2 Delivery Nasal Cannula Nasal Cannula Nasal Cannula Nasal Cannula O2 Flow Rate 2.0 2.0 2.0 2.0 05/15/20 05/15/20 05/15/20 05/15/20 06:07 06:08 06:27 06:38 Pulse 135 135 128 112 Resp 23 B/P (MAP) 139/72 139/72 107/62 124/76 (92) O2 Delivery Nasal Cannula O2 Flow Rate 3.0 05/15/20 05/15/20 05/15/20 05/15/20 07:20 08:00 08:00 10:54 Temp 98.7 98.9 98.7 98.9 Pulse 100 120 Resp 18 22 B/P (MAP) 110/67 (81) 109/68 (82) Pulse Ox 96 98 O2 Delivery Nasal Cannula Nasal Cannula Nasal Cannula Nasal Cannula O2 Flow Rate 3.0 2.0 2.0 3.0 05/15/20 11:40 Pulse 120 B/P (MAP) 109/68 Intake and Output 05/14/20 05/14/20 05/15/20 15:00 23:00 07:00 Intake Total 450 ml 1050 ml 400 ml Output Total 250 ml 960 ml 300 ml Balance 200 ml 90 ml 100 ml Problem List Problems Medical Problems: (1) Abdominal pain Status: Acute (2) Sigmoid volvulus Status: Acute (3) Small bowel obstruction Status: Acute Assessment Sigmoid volvulus, post-sigmoid resection, still with some ileus though some bowel sounds. Plan of Care Note NPO pending flatus/stool. Justicifation of Admission Dx: Justifications for Admission: Justification of Admission Dx: Yes (SBO, VOLVULUS, HYPOKALEMIA) BUBBA CAMP MD May 15, 2020 13:34
--- NOTE | 2020-05-15 16:28 | NUR ---
SW following. Spoke with RN and reviewed chart. Pt remains on IV Zosyn and is NPO. Pt increased from 2l 02 to 3l 02. Pt COVID negative. PT to evaluate. SW consulted per pt having barriers to getting around. SW awaiting PT/OT recommendations. SW did speak with pt who adamantly refused SNU or HH on discharge. Pt stated "Hell no, I don't need those things." Pt stated, "I have a home and I'm going home." Pt transferred to [facility] to follow.
[2020-05-15] MEDS: ATORVASTATIN CALCIUM 40 MG TABLET. PO SCH (20:12)
[2020-05-15] MEDS: METOPROLOL TART IMMED RELEASE 50 MG TABLET. PO SCH (20:12)
[2020-05-16 03:15] VITALS: BP 126/80
[2020-05-16] MEDS: PIPERACILLIN/TAZOBACTAM 3.375 GM in IV NORMAL SALINE 50ML 50 ML IV SCH ×4 (05:05→23:55)
[2020-05-16 05:40] LABS: BASO # 0.1 x10^3/uL (0.0-0.2); BASO % 1 % (0-3); EOS % 10 % (0-3); HEMATOCRIT 38.6 % (39.0-53.0); LYMPH # 1.5 x10^3/uL (1.0-4.8); LYMPH % 15 % (24-48); MEAN CORPUSCULAR HEMOGLOBIN 31 pg (25-35); MEAN CORPUSCULAR HGB CONC 34 g/dL (31-37); MEAN CORPUSCULAR VOLUME 92 fL (79-100); MONO # 0.7 x10^3/uL (0.0-1.1); MONO % 8 % (0-9); NEUT # 6.4 x10^3/uL (1.8-7.7); NEUT % 66 % (31-73); PLATELET COUNT 168 x10^3/uL (140-400); RED CELL DISTRIBUTION WIDTH 15.6 % (11.5-14.5); WHITE BLOOD COUNT 9.7 x10^3/uL (4.0-11.0)
[2020-05-16 05:55] LABS: ALBUMIN/GLOBULIN RATIO 0.6 (1.0-1.7); CREATININE 0.9 mg/dL (0.7-1.3); GFR 82.7; TOTAL BILIRUBIN 1.5 mg/dL (0.2-1.0); TOTAL PROTEIN 5.3 g/dL (6.4-8.2)
[2020-05-16 07:00] VITALS: BP 146/84
[2020-05-16] MEDS: PANTOPRAZOLE IV PUSH 40 MG VIAL. IVP SCH ×2 (08:27→15:48)
[2020-05-16] MEDS: ASPIRIN ENTERIC COATED 81 MG TABLET.DR. PO SCH (08:27)
[2020-05-16] MEDS: METOPROLOL TART IMMED RELEASE 50 MG TABLET. PO SCH ×2 (08:28→21:02)
[2020-05-16] MEDS: DIGOXIN 125 MCG TABLET. PO SCH (08:28)
[2020-05-16] MEDS: HEPARIN for SUB-Q USE 5,000 UNIT/ML VIAL. SQ SCH ×2 (08:33→21:05)
--- NOTE | 2020-05-16 09:23 | PDOC ---
KAYLI HOWARD LINEN CHECKER 05/16/20 0922: SURGICAL PROGRESS NOTE DATE: 05/16/20 TIME: 09:21 Subjective thought he needed to have BM maybe some flatus no emesis Vital Signs Vital Signs Date Time Temp Pulse Resp B/P (MAP) Pulse Ox O2 Delivery O2 Flow Rate FiO2 05/16/20 08:28 94 146/84 05/16/20 07:00 97.6 18 96 Nasal Cannula 3.0 97.6 I&O Intake and Output 05/16/20 07:00 Intake Total 950 ml Output Total 1300 ml Balance -350 ml Intake Oral 0 ml IV Total 950 ml Output Urine Total 1300 ml # Voids 2 General: Cooperative, No acute distress Abdomen: Soft, Other (distended, incision c/d/i) Labs Laboratory Tests Test 05/14/20 11:35 05/14/20 17:22 05/14/20 20:04 05/15/20 04:35 Glucose (Fingerstick) 109 mg/dL (70-99) 123 mg/dL (70-99) 104 mg/dL (70-99) White Blood Count 9.2 x10^3/uL (4.0-11.0) Red Blood Count 4.53 x10^6/uL (4.30-5.70) Hemoglobin 14.0 g/dL (13.0-17.5) Hematocrit 41.3 % (39.0-53.0) Mean Corpuscular Volume 91 fL (79-100) Mean Corpuscular Hemoglobin 31 pg (25-35) Mean Corpuscular Hemoglobin Concent 34 g/dL (31-37) Red Cell Distribution Width 15.6 % (11.5-14.5) Platelet Count 186 x10^3/uL (140-400) Neutrophils (%) (Auto) 72 % (31-73) Lymphocytes (%) (Auto) 12 % (24-48) Monocytes (%) (Auto) 11 % (0-9) Eosinophils (%) (Auto) 5 % (0-3) Basophils (%) (Auto) 1 % (0-3) Neutrophils # (Auto) 6.6 x10^3/uL (1.8-7.7) Lymphocytes # (Auto) 1.1 x10^3/uL (1.0-4.8) Monocytes # (Auto) 1.0 x10^3/uL (0.0-1.1) Eosinophils # (Auto) 0.4 x10^3/uL (0.0-0.7) Basophils # (Auto) 0.1 x10^3/uL (0.0-0.2) Sodium Level 146 mmol/L (136-145) Potassium Level 3.6 mmol/L (3.5-5.1) Chloride Level 110 mmol/L (98-107) Carbon Dioxide Level 29 mmol/L (21-32) Anion Gap 7 (6-14) Blood Urea Nitrogen 12 mg/dL (8-26) Creatinine 1.0 mg/dL (0.7-1.3) Estimated GFR (Cockcroft-Gault) 73.2 Glucose Level 137 mg/dL (70-99) Calcium Level 8.4 mg/dL (8.5-10.1) Free Thyroxine 1.57 ng/dL (0.76-1.46) Test 05/15/20 08:00 05/15/20 11:23 05/15/20 16:29 05/15/20 20:37 Glucose (Fingerstick) 122 mg/dL (70-99) 114 mg/dL (70-99) 105 mg/dL (70-99) 101 mg/dL (70-99) Test 05/16/20 04:50 05/16/20 07:35 White Blood Count 9.7 x10^3/uL (4.0-11.0) Red Blood Count 4.20 x10^6/uL (4.30-5.70) Hemoglobin 13.0 g/dL (13.0-17.5) Hematocrit 38.6 % (39.0-53.0) Mean Corpuscular Volume 92 fL (79-100) Mean Corpuscular Hemoglobin 31 pg (25-35) Mean Corpuscular Hemoglobin Concent 34 g/dL (31-37) Red Cell Distribution Width 15.6 % (11.5-14.5) Platelet Count 168 x10^3/uL (140-400) Neutrophils (%) (Auto) 66 % (31-73) Lymphocytes (%) (Auto) 15 % (24-48) Monocytes (%) (Auto) 8 % (0-9) Eosinophils (%) (Auto) 10 % (0-3) Basophils (%) (Auto) 1 % (0-3) Neutrophils # (Auto) 6.4 x10^3/uL (1.8-7.7) Lymphocytes # (Auto) 1.5 x10^3/uL (1.0-4.8) Monocytes # (Auto) 0.7 x10^3/uL (0.0-1.1) Eosinophils # (Auto) 1.0 x10^3/uL (0.0-0.7) Basophils # (Auto) 0.1 x10^3/uL (0.0-0.2) Sodium Level 144 mmol/L (136-145) Potassium Level 4.0 mmol/L (3.5-5.1) Chloride Level 112 mmol/L (98-107) Carbon Dioxide Level 26 mmol/L (21-32) Anion Gap 6 (6-14) Blood Urea Nitrogen 11 mg/dL (8-26) Creatinine 0.9 mg/dL (0.7-1.3) Estimated GFR (Cockcroft-Gault) 82.7 BUN/Creatinine Ratio 12 (6-20) Glucose Level 100 mg/dL (70-99) Calcium Level 8.0 mg/dL (8.5-10.1) Total Bilirubin 1.5 mg/dL (0.2-1.0) Aspartate Amino Transf (AST/SGOT) 31 U/L (15-37) Alanine Aminotransferase (ALT/SGPT) 11 U/L (16-63) Alkaline Phosphatase 78 U/L (46-116) Total Protein 5.3 g/dL (6.4-8.2) Albumin 2.0 g/dL (3.4-5.0) Albumin/Globulin Ratio 0.6 (1.0-1.7) Glucose (Fingerstick) 110 mg/dL (70-99) Laboratory Tests Test 05/15/20 11:23 05/15/20 16:29 05/15/20 20:37 05/16/20 04:50 Glucose (Fingerstick) 114 mg/dL (70-99) 105 mg/dL (70-99) 101 mg/dL (70-99) White Blood Count 9.7 x10^3/uL (4.0-11.0) Red Blood Count 4.20 x10^6/uL (4.30-5.70) Hemoglobin 13.0 g/dL (13.0-17.5) Hematocrit 38.6 % (39.0-53.0) Mean Corpuscular Volume 92 fL (79-100) Mean Corpuscular Hemoglobin 31 pg (25-35) Mean Corpuscular Hemoglobin Concent 34 g/dL (31-37) Red Cell Distribution Width 15.6 % (11.5-14.5) Platelet Count 168 x10^3/uL (140-400) Neutrophils (%) (Auto) 66 % (31-73) Lymphocytes (%) (Auto) 15 % (24-48) Monocytes (%) (Auto) 8 % (0-9) Eosinophils (%) (Auto) 10 % (0-3) Basophils (%) (Auto) 1 % (0-3) Neutrophils # (Auto) 6.4 x10^3/uL (1.8-7.7) Lymphocytes # (Auto) 1.5 x10^3/uL (1.0-4.8) Monocytes # (Auto) 0.7 x10^3/uL (0.0-1.1) Eosinophils # (Auto) 1.0 x10^3/uL (0.0-0.7) Basophils # (Auto) 0.1 x10^3/uL (0.0-0.2) Sodium Level 144 mmol/L (136-145) Potassium Level 4.0 mmol/L (3.5-5.1) Chloride Level 112 mmol/L (98-107) Carbon Dioxide Level 26 mmol/L (21-32) Anion Gap 6 (6-14) Blood Urea Nitrogen 11 mg/dL (8-26) Creatinine 0.9 mg/dL (0.7-1.3) Estimated GFR (Cockcroft-Gault) 82.7 BUN/Creatinine Ratio 12 (6-20) Glucose Level 100 mg/dL (70-99) Calcium Level 8.0 mg/dL (8.5-10.1) Total Bilirubin 1.5 mg/dL (0.2-1.0) Aspartate Amino Transf (AST/SGOT) 31 U/L (15-37) Alanine Aminotransferase (ALT/SGPT) 11 U/L (16-63) Alkaline Phosphatase 78 U/L (46-116) Total Protein 5.3 g/dL (6.4-8.2) Albumin 2.0 g/dL (3.4-5.0) Albumin/Globulin Ratio 0.6 (1.0-1.7) Test 05/16/20 07:35 Glucose (Fingerstick) 110 mg/dL (70-99) Problem List Problems Medical Problems: (1) Abdominal pain Status: Acute (2) Sigmoid volvulus Status: Acute (3) Small bowel obstruction Status: Acute Assessment/Plan burping and distended abdomen--will continue NPO until improved bowel function Justicifation of Admission Dx: Justifications for Admission: Justification of Admission Dx: Yes (SBO, VOLVULUS, HYPOKALEMIA) SHELIA CASTILLO MD 05/17/20 1139: SURGICAL PROGRESS NOTE Assessment/Plan Agree with above KAYLI HOWARD APRN May 16, 2020 09:22 SHELIA CASTILLO MD May 17, 2020 11:39
--- NOTE | 2020-05-16 09:35 | PDOC ---
RAMIRO LAGUERRE MANAGER GRANT 05/16/20 0935: CARDIO Progress Notes Date and Time Date of Service 05/16/20 Time of Evaluation 0920 Subjective Subjective: No Chest Pain, No shortness of breath Vitals Vitals Vital Signs Date Time Temp Pulse Resp B/P (MAP) Pulse Ox O2 Delivery O2 Flow Rate FiO2 05/16/20 08:28 94 146/84 05/16/20 07:00 97.6 18 96 Nasal Cannula 3.0 97.6 Weight Weight [ ] Input and Output Intake and Output Intake and Output 05/16/20 07:00 Intake Total 950 ml Output Total 1300 ml Balance -350 ml Intake Oral 0 ml IV Total 950 ml Output Urine Total 1300 ml # Voids 2 Laboratory Labs Laboratory Tests Test 05/15/20 11:23 05/15/20 16:29 05/15/20 20:37 05/16/20 04:50 Glucose (Fingerstick) 114 mg/dL (70-99) 105 mg/dL (70-99) 101 mg/dL (70-99) White Blood Count 9.7 x10^3/uL (4.0-11.0) Red Blood Count 4.20 x10^6/uL (4.30-5.70) Hemoglobin 13.0 g/dL (13.0-17.5) Hematocrit 38.6 % (39.0-53.0) Mean Corpuscular Volume 92 fL (79-100) Mean Corpuscular Hemoglobin 31 pg (25-35) Mean Corpuscular Hemoglobin Concent 34 g/dL (31-37) Red Cell Distribution Width 15.6 % (11.5-14.5) Platelet Count 168 x10^3/uL (140-400) Neutrophils (%) (Auto) 66 % (31-73) Lymphocytes (%) (Auto) 15 % (24-48) Monocytes (%) (Auto) 8 % (0-9) Eosinophils (%) (Auto) 10 % (0-3) Basophils (%) (Auto) 1 % (0-3) Neutrophils # (Auto) 6.4 x10^3/uL (1.8-7.7) Lymphocytes # (Auto) 1.5 x10^3/uL (1.0-4.8) Monocytes # (Auto) 0.7 x10^3/uL (0.0-1.1) Eosinophils # (Auto) 1.0 x10^3/uL (0.0-0.7) Basophils # (Auto) 0.1 x10^3/uL (0.0-0.2) Sodium Level 144 mmol/L (136-145) Potassium Level 4.0 mmol/L (3.5-5.1) Chloride Level 112 mmol/L (98-107) Carbon Dioxide Level 26 mmol/L (21-32) Anion Gap 6 (6-14) Blood Urea Nitrogen 11 mg/dL (8-26) Creatinine 0.9 mg/dL (0.7-1.3) Estimated GFR (Cockcroft-Gault) 82.7 BUN/Creatinine Ratio 12 (6-20) Glucose Level 100 mg/dL (70-99) Calcium Level 8.0 mg/dL (8.5-10.1) Total Bilirubin 1.5 mg/dL (0.2-1.0) Aspartate Amino Transf (AST/SGOT) 31 U/L (15-37) Alanine Aminotransferase (ALT/SGPT) 11 U/L (16-63) Alkaline Phosphatase 78 U/L (46-116) Total Protein 5.3 g/dL (6.4-8.2) Albumin 2.0 g/dL (3.4-5.0) Albumin/Globulin Ratio 0.6 (1.0-1.7) Test 05/16/20 07:35 Glucose (Fingerstick) 110 mg/dL (70-99) Physical Exam HEENT: Neck Supple W Full Motion Chest: Symmetric LUNGS: Clear to Auscultation, Other (diminished bases ) Heart: irregularly irregular (AFIB-rate controlled ) Abdomen: Other (post-op drsg c/d/i ) Extremities: No Edema, Other (now wounds. Extremities warm to touch) Neurology: alert, oriented, follow commands Assessment Assessment 1. Abdominal pain. CT with sigmoid volvulus. S/p sigmoid colon resection 05/12 2. PAFIB with RVR; remains in AFIB. rate now controlled with resumption of Digoxin and metoprolol 3. 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 Appears compensated 4. CAD; recent cath with 2-vessel disease. No lesions needing intervention noted 5. PAD; s/p recent INSERTING PRESS OPERATOR of the LSFA. Has RIVET TESTER of the right SFA. No critical limb ischemia Recommendations Continue Digoxin and metoprolol for rate control Resume Eliquis for stroke prophylaxis when okay with surgical team Secondary prevention; ASA, statin, BB therapy Add lose dose ACEi and convert metoprolol to long-acting for HF optimization Outpatient f/u of PAD with consideration of INSERTING PRESS OPERATOR of the right SFA RIVET TESTER Repeat echo on an outpatient basis to re-assess LV systolic function, assess need for AICD Supportive care Follow up in our office with Dr. Olmos as scheduled. Justicifation of Admission Dx: Justifications for Admission: Justification of Admission Dx: Yes (SBO, VOLVULUS, HYPOKALEMIA) GRACY OLMOS MD 05/16/20 1209: CARDIO Progress Notes Plan Plan The patient was seen and interviewed as well as examined at the bedside. The chart was reviewed. The case was discussed. Agree with the plan of care. RAMIRO LAGUERRE APRN May 16, 2020 09:35 GRACY OLMOS MD May 16, 2020 12:09
[2020-05-16 10:55] VITALS: BP 122/84
--- NOTE | 2020-05-16 11:56 | PDOC ---
G I PROGRESS NOTE Subjective Thought he might have a stool earlier, but didn't. Physical Exam Lungs clear. RRR Abdomen soft. Review of Relevant I have reviewed the following items ben (where applicable) has been applied. Labs Laboratory Tests Test 05/14/20 17:22 05/14/20 20:04 05/15/20 04:35 05/15/20 08:00 Glucose (Fingerstick) 123 mg/dL (70-99) 104 mg/dL (70-99) 122 mg/dL (70-99) White Blood Count 9.2 x10^3/uL (4.0-11.0) Red Blood Count 4.53 x10^6/uL (4.30-5.70) Hemoglobin 14.0 g/dL (13.0-17.5) Hematocrit 41.3 % (39.0-53.0) Mean Corpuscular Volume 91 fL (79-100) Mean Corpuscular Hemoglobin 31 pg (25-35) Mean Corpuscular Hemoglobin Concent 34 g/dL (31-37) Red Cell Distribution Width 15.6 % (11.5-14.5) Platelet Count 186 x10^3/uL (140-400) Neutrophils (%) (Auto) 72 % (31-73) Lymphocytes (%) (Auto) 12 % (24-48) Monocytes (%) (Auto) 11 % (0-9) Eosinophils (%) (Auto) 5 % (0-3) Basophils (%) (Auto) 1 % (0-3) Neutrophils # (Auto) 6.6 x10^3/uL (1.8-7.7) Lymphocytes # (Auto) 1.1 x10^3/uL (1.0-4.8) Monocytes # (Auto) 1.0 x10^3/uL (0.0-1.1) Eosinophils # (Auto) 0.4 x10^3/uL (0.0-0.7) Basophils # (Auto) 0.1 x10^3/uL (0.0-0.2) Sodium Level 146 mmol/L (136-145) Potassium Level 3.6 mmol/L (3.5-5.1) Chloride Level 110 mmol/L (98-107) Carbon Dioxide Level 29 mmol/L (21-32) Anion Gap 7 (6-14) Blood Urea Nitrogen 12 mg/dL (8-26) Creatinine 1.0 mg/dL (0.7-1.3) Estimated GFR (Cockcroft-Gault) 73.2 Glucose Level 137 mg/dL (70-99) Calcium Level 8.4 mg/dL (8.5-10.1) Free Thyroxine 1.57 ng/dL (0.76-1.46) Test 05/15/20 11:23 05/15/20 16:29 05/15/20 20:37 05/16/20 04:50 Glucose (Fingerstick) 114 mg/dL (70-99) 105 mg/dL (70-99) 101 mg/dL (70-99) White Blood Count 9.7 x10^3/uL (4.0-11.0) Red Blood Count 4.20 x10^6/uL (4.30-5.70) Hemoglobin 13.0 g/dL (13.0-17.5) Hematocrit 38.6 % (39.0-53.0) Mean Corpuscular Volume 92 fL (79-100) Mean Corpuscular Hemoglobin 31 pg (25-35) Mean Corpuscular Hemoglobin Concent 34 g/dL (31-37) Red Cell Distribution Width 15.6 % (11.5-14.5) Platelet Count 168 x10^3/uL (140-400) Neutrophils (%) (Auto) 66 % (31-73) Lymphocytes (%) (Auto) 15 % (24-48) Monocytes (%) (Auto) 8 % (0-9) Eosinophils (%) (Auto) 10 % (0-3) Basophils (%) (Auto) 1 % (0-3) Neutrophils # (Auto) 6.4 x10^3/uL (1.8-7.7) Lymphocytes # (Auto) 1.5 x10^3/uL (1.0-4.8) Monocytes # (Auto) 0.7 x10^3/uL (0.0-1.1) Eosinophils # (Auto) 1.0 x10^3/uL (0.0-0.7) Basophils # (Auto) 0.1 x10^3/uL (0.0-0.2) Sodium Level 144 mmol/L (136-145) Potassium Level 4.0 mmol/L (3.5-5.1) Chloride Level 112 mmol/L (98-107) Carbon Dioxide Level 26 mmol/L (21-32) Anion Gap 6 (6-14) Blood Urea Nitrogen 11 mg/dL (8-26) Creatinine 0.9 mg/dL (0.7-1.3) Estimated GFR (Cockcroft-Gault) 82.7 BUN/Creatinine Ratio 12 (6-20) Glucose Level 100 mg/dL (70-99) Calcium Level 8.0 mg/dL (8.5-10.1) Total Bilirubin 1.5 mg/dL (0.2-1.0) Aspartate Amino Transf (AST/SGOT) 31 U/L (15-37) Alanine Aminotransferase (ALT/SGPT) 11 U/L (16-63) Alkaline Phosphatase 78 U/L (46-116) Total Protein 5.3 g/dL (6.4-8.2) Albumin 2.0 g/dL (3.4-5.0) Albumin/Globulin Ratio 0.6 (1.0-1.7) Test 05/16/20 07:35 05/16/20 11:18 Glucose (Fingerstick) 110 mg/dL (70-99) 111 mg/dL (70-99) Laboratory Tests Test 05/15/20 16:29 05/15/20 20:37 05/16/20 04:50 05/16/20 07:35 Glucose (Fingerstick) 105 mg/dL (70-99) 101 mg/dL (70-99) 110 mg/dL (70-99) White Blood Count 9.7 x10^3/uL (4.0-11.0) Red Blood Count 4.20 x10^6/uL (4.30-5.70) Hemoglobin 13.0 g/dL (13.0-17.5) Hematocrit 38.6 % (39.0-53.0) Mean Corpuscular Volume 92 fL (79-100) Mean Corpuscular Hemoglobin 31 pg (25-35) Mean Corpuscular Hemoglobin Concent 34 g/dL (31-37) Red Cell Distribution Width 15.6 % (11.5-14.5) Platelet Count 168 x10^3/uL (140-400) Neutrophils (%) (Auto) 66 % (31-73) Lymphocytes (%) (Auto) 15 % (24-48) Monocytes (%) (Auto) 8 % (0-9) Eosinophils (%) (Auto) 10 % (0-3) Basophils (%) (Auto) 1 % (0-3) Neutrophils # (Auto) 6.4 x10^3/uL (1.8-7.7) Lymphocytes # (Auto) 1.5 x10^3/uL (1.0-4.8) Monocytes # (Auto) 0.7 x10^3/uL (0.0-1.1) Eosinophils # (Auto) 1.0 x10^3/uL (0.0-0.7) Basophils # (Auto) 0.1 x10^3/uL (0.0-0.2) Sodium Level 144 mmol/L (136-145) Potassium Level 4.0 mmol/L (3.5-5.1) Chloride Level 112 mmol/L (98-107) Carbon Dioxide Level 26 mmol/L (21-32) Anion Gap 6 (6-14) Blood Urea Nitrogen 11 mg/dL (8-26) Creatinine 0.9 mg/dL (0.7-1.3) Estimated GFR (Cockcroft-Gault) 82.7 BUN/Creatinine Ratio 12 (6-20) Glucose Level 100 mg/dL (70-99) Calcium Level 8.0 mg/dL (8.5-10.1) Total Bilirubin 1.5 mg/dL (0.2-1.0) Aspartate Amino Transf (AST/SGOT) 31 U/L (15-37) Alanine Aminotransferase (ALT/SGPT) 11 U/L (16-63) Alkaline Phosphatase 78 U/L (46-116) Total Protein 5.3 g/dL (6.4-8.2) Albumin 2.0 g/dL (3.4-5.0) Albumin/Globulin Ratio 0.6 (1.0-1.7) Test 05/16/20 11:18 Glucose (Fingerstick) 111 mg/dL (70-99) Vitals/I & O Vital Sign - Last 24 Hours 05/15/20 05/15/20 05/15/20 05/15/20 15:04 19:00 19:53 20:12 Temp 97.6 98.1 97.6 98.1 Pulse 90 81 81 Resp 20 18 B/P (MAP) 133/72 (92) 135/64 (87) 135/64 Pulse Ox 97 93 O2 Delivery Nasal Cannula Nasal Cannula Nasal Cannula O2 Flow Rate 3.0 3.0 2.0 05/15/20 05/16/20 05/16/20 05/16/20 23:28 03:15 07:00 08:00 Temp 98.0 98.0 97.6 98.0 98.0 97.6 Pulse 81 79 94 Resp 19 18 18 B/P (MAP) 118/63 (81) 126/80 (95) 146/84 (104) Pulse Ox 95 96 96 O2 Delivery Nasal Cannula Nasal Cannula Nasal Cannula Nasal Cannula O2 Flow Rate 3.0 3.0 3.0 3.0 05/16/20 05/16/20 05/16/20 08:28 08:28 10:55 Temp 98.6 98.6 Pulse 94 94 86 Resp 18 B/P (MAP) 146/84 146/84 122/84 (97) Pulse Ox 95 O2 Delivery Nasal Cannula O2 Flow Rate 3.0 Intake and Output 05/15/20 05/15/20 05/16/20 15:00 23:00 07:00 Intake Total 0 ml 0 ml 950 ml Output Total 600 ml 700 ml Balance 0 ml -600 ml 250 ml Problem List Problems Medical Problems: (1) Abdominal pain Status: Acute (2) Sigmoid volvulus Status: Acute (3) Small bowel obstruction Status: Acute Assessment Ileus persists. Plan of Care Note CPM Await return of bowel function. Justicifation of Admission Dx: Justifications for Admission: Justification of Admission Dx: Yes (SBO, VOLVULUS, HYPOKALEMIA) BUBBA CAMP MD May 16, 2020 11:56
[2020-05-16] MEDS: LISINOPRIL 5 MG TABLET. PO SCH (12:23)
[2020-05-16] MEDS: IV NORMAL SALINE 1000ML BAG 1,000 ML IV SCH (12:24)
--- NOTE | 2020-05-16 12:56 | NUR ---
SS following up with discharge planning. SS reviewed pt chart and discussed with pt RN. Pt is from home and is currently requiring oxygen. COVID19 negative. PT/OT recommended [facility]. Pt adamantly declining [facility] unit and home healthcare. Pt reported that he has help at home. SS will continue to follow for discharge planning.
[2020-05-16 14:55] VITALS: BP 141/72
--- NOTE | 2020-05-16 14:57 | PDOC ---
PROGRESS NOTES Date of Service: DATE: 05/16/20 TIME: 14:56 Chief Complaint Chief Complaint IMPRESSION Sigmoid volvulus, status post exploratory laparotomy and sigmoid colon resection Wall thickening of the rectum and sigmoid colon is consistent with a component of colitis. NPO--await bowel function now in Afib, cardiac consulted 05/15 move to c Follow GI and general plastic surgery manager recommendations Remain n.p.o. as per sales consultant insurance Maintenance fluids Pain management Continue IV antibiotics and supportive care 37 MIN PT EXAM, CHART REVIEW, > 50% of time spent with exam, chart review, pt care coordination History of Present Illness History of Present Illness 05/12 Patient status post exploratory laparotomy and sigmoid colon resection, 05/12. He states his pain is well controlled. NG tube in place. Denies any fevers. Discussed with RN. 05/13 Patient post ex lap and sigmoid colon resection. Pain well controlled with pain pump. NG tube in place. He tolerated a popsicle today. Denies any fevers. 05/15 Pain remains well controlled. Tolerating popsicle and ice chips. NG tube in place, will removed today. Advance diet slowly. 05/16 No acute events reported overnight, case discussed with nursing staff patient in no acute distress no complaints during my visit. N.p.o. as per attending Vitals Vitals Vital Signs Date Time Temp Pulse Resp B/P (MAP) Pulse Ox O2 Delivery O2 Flow Rate FiO2 05/16/20 12:23 86 122/84 05/16/20 10:55 98.6 18 95 Nasal Cannula 3.0 98.6 Physical Exam General: Cooperative, No acute distress Heart: Regular rate, Other (tachy) Lungs: Clear Abdomen: Soft, Other (distended, incision c/d/i) Extremities: No clubbing, No cyanosis Skin: No rashes, No breakdown Labs LABS Laboratory Tests Test 05/15/20 16:29 05/15/20 20:37 05/16/20 04:50 05/16/20 07:35 Glucose (Fingerstick) 105 mg/dL (70-99) 101 mg/dL (70-99) 110 mg/dL (70-99) White Blood Count 9.7 x10^3/uL (4.0-11.0) Red Blood Count 4.20 x10^6/uL (4.30-5.70) Hemoglobin 13.0 g/dL (13.0-17.5) Hematocrit 38.6 % (39.0-53.0) Mean Corpuscular Volume 92 fL (79-100) Mean Corpuscular Hemoglobin 31 pg (25-35) Mean Corpuscular Hemoglobin Concent 34 g/dL (31-37) Red Cell Distribution Width 15.6 % (11.5-14.5) Platelet Count 168 x10^3/uL (140-400) Neutrophils (%) (Auto) 66 % (31-73) Lymphocytes (%) (Auto) 15 % (24-48) Monocytes (%) (Auto) 8 % (0-9) Eosinophils (%) (Auto) 10 % (0-3) Basophils (%) (Auto) 1 % (0-3) Neutrophils # (Auto) 6.4 x10^3/uL (1.8-7.7) Lymphocytes # (Auto) 1.5 x10^3/uL (1.0-4.8) Monocytes # (Auto) 0.7 x10^3/uL (0.0-1.1) Eosinophils # (Auto) 1.0 x10^3/uL (0.0-0.7) Basophils # (Auto) 0.1 x10^3/uL (0.0-0.2) Sodium Level 144 mmol/L (136-145) Potassium Level 4.0 mmol/L (3.5-5.1) Chloride Level 112 mmol/L (98-107) Carbon Dioxide Level 26 mmol/L (21-32) Anion Gap 6 (6-14) Blood Urea Nitrogen 11 mg/dL (8-26) Creatinine 0.9 mg/dL (0.7-1.3) Estimated GFR (Cockcroft-Gault) 82.7 BUN/Creatinine Ratio 12 (6-20) Glucose Level 100 mg/dL (70-99) Calcium Level 8.0 mg/dL (8.5-10.1) Total Bilirubin 1.5 mg/dL (0.2-1.0) Aspartate Amino Transf (AST/SGOT) 31 U/L (15-37) Alanine Aminotransferase (ALT/SGPT) 11 U/L (16-63) Alkaline Phosphatase 78 U/L (46-116) Total Protein 5.3 g/dL (6.4-8.2) Albumin 2.0 g/dL (3.4-5.0) Albumin/Globulin Ratio 0.6 (1.0-1.7) Test 05/16/20 11:18 Glucose (Fingerstick) 111 mg/dL (70-99) Assessment and Plan Assessmemt and Plan Problems Medical Problems: (1) Abdominal pain Status: Acute (2) Sigmoid volvulus Status: Acute (3) Small bowel obstruction Status: Acute Comment Review of Relevant I have reviewed the following items ben (where applicable) has been applied. Labs Laboratory Tests Test 05/14/20 17:22 05/14/20 20:04 05/15/20 04:35 05/15/20 08:00 Glucose (Fingerstick) 123 mg/dL (70-99) 104 mg/dL (70-99) 122 mg/dL (70-99) White Blood Count 9.2 x10^3/uL (4.0-11.0) Red Blood Count 4.53 x10^6/uL (4.30-5.70) Hemoglobin 14.0 g/dL (13.0-17.5) Hematocrit 41.3 % (39.0-53.0) Mean Corpuscular Volume 91 fL (79-100) Mean Corpuscular Hemoglobin 31 pg (25-35) Mean Corpuscular Hemoglobin Concent 34 g/dL (31-37) Red Cell Distribution Width 15.6 % (11.5-14.5) Platelet Count 186 x10^3/uL (140-400) Neutrophils (%) (Auto) 72 % (31-73) Lymphocytes (%) (Auto) 12 % (24-48) Monocytes (%) (Auto) 11 % (0-9) Eosinophils (%) (Auto) 5 % (0-3) Basophils (%) (Auto) 1 % (0-3) Neutrophils # (Auto) 6.6 x10^3/uL (1.8-7.7) Lymphocytes # (Auto) 1.1 x10^3/uL (1.0-4.8) Monocytes # (Auto) 1.0 x10^3/uL (0.0-1.1) Eosinophils # (Auto) 0.4 x10^3/uL (0.0-0.7) Basophils # (Auto) 0.1 x10^3/uL (0.0-0.2) Sodium Level 146 mmol/L (136-145) Potassium Level 3.6 mmol/L (3.5-5.1) Chloride Level 110 mmol/L (98-107) Carbon Dioxide Level 29 mmol/L (21-32) Anion Gap 7 (6-14) Blood Urea Nitrogen 12 mg/dL (8-26) Creatinine 1.0 mg/dL (0.7-1.3) Estimated GFR (Cockcroft-Gault) 73.2 Glucose Level 137 mg/dL (70-99) Calcium Level 8.4 mg/dL (8.5-10.1) Free Thyroxine 1.57 ng/dL (0.76-1.46) Test 05/15/20 11:23 05/15/20 16:29 05/15/20 20:37 05/16/20 04:50 Glucose (Fingerstick) 114 mg/dL (70-99) 105 mg/dL (70-99) 101 mg/dL (70-99) White Blood Count 9.7 x10^3/uL (4.0-11.0) Red Blood Count 4.20 x10^6/uL (4.30-5.70) Hemoglobin 13.0 g/dL (13.0-17.5) Hematocrit 38.6 % (39.0-53.0) Mean Corpuscular Volume 92 fL (79-100) Mean Corpuscular Hemoglobin 31 pg (25-35) Mean Corpuscular Hemoglobin Concent 34 g/dL (31-37) Red Cell Distribution Width 15.6 % (11.5-14.5) Platelet Count 168 x10^3/uL (140-400) Neutrophils (%) (Auto) 66 % (31-73) Lymphocytes (%) (Auto) 15 % (24-48) Monocytes (%) (Auto) 8 % (0-9) Eosinophils (%) (Auto) 10 % (0-3) Basophils (%) (Auto) 1 % (0-3) Neutrophils # (Auto) 6.4 x10^3/uL (1.8-7.7) Lymphocytes # (Auto) 1.5 x10^3/uL (1.0-4.8) Monocytes # (Auto) 0.7 x10^3/uL (0.0-1.1) Eosinophils # (Auto) 1.0 x10^3/uL (0.0-0.7) Basophils # (Auto) 0.1 x10^3/uL (0.0-0.2) Sodium Level 144 mmol/L (136-145) Potassium Level 4.0 mmol/L (3.5-5.1) Chloride Level 112 mmol/L (98-107) Carbon Dioxide Level 26 mmol/L (21-32) Anion Gap 6 (6-14) Blood Urea Nitrogen 11 mg/dL (8-26) Creatinine 0.9 mg/dL (0.7-1.3) Estimated GFR (Cockcroft-Gault) 82.7 BUN/Creatinine Ratio 12 (6-20) Glucose Level 100 mg/dL (70-99) Calcium Level 8.0 mg/dL (8.5-10.1) Total Bilirubin 1.5 mg/dL (0.2-1.0) Aspartate Amino Transf (AST/SGOT) 31 U/L (15-37) Alanine Aminotransferase (ALT/SGPT) 11 U/L (16-63) Alkaline Phosphatase 78 U/L (46-116) Total Protein 5.3 g/dL (6.4-8.2) Albumin 2.0 g/dL (3.4-5.0) Albumin/Globulin Ratio 0.6 (1.0-1.7) Test 05/16/20 07:35 05/16/20 11:18 Glucose (Fingerstick) 110 mg/dL (70-99) 111 mg/dL (70-99) Laboratory Tests Test 05/15/20 16:29 05/15/20 20:37 05/16/20 04:50 05/16/20 07:35 Glucose (Fingerstick) 105 mg/dL (70-99) 101 mg/dL (70-99) 110 mg/dL (70-99) White Blood Count 9.7 x10^3/uL (4.0-11.0) Red Blood Count 4.20 x10^6/uL (4.30-5.70) Hemoglobin 13.0 g/dL (13.0-17.5) Hematocrit 38.6 % (39.0-53.0) Mean Corpuscular Volume 92 fL (79-100) Mean Corpuscular Hemoglobin 31 pg (25-35) Mean Corpuscular Hemoglobin Concent 34 g/dL (31-37) Red Cell Distribution Width 15.6 % (11.5-14.5) Platelet Count 168 x10^3/uL (140-400) Neutrophils (%) (Auto) 66 % (31-73) Lymphocytes (%) (Auto) 15 % (24-48) Monocytes (%) (Auto) 8 % (0-9) Eosinophils (%) (Auto) 10 % (0-3) Basophils (%) (Auto) 1 % (0-3) Neutrophils # (Auto) 6.4 x10^3/uL (1.8-7.7) Lymphocytes # (Auto) 1.5 x10^3/uL (1.0-4.8) Monocytes # (Auto) 0.7 x10^3/uL (0.0-1.1) Eosinophils # (Auto) 1.0 x10^3/uL (0.0-0.7) Basophils # (Auto) 0.1 x10^3/uL (0.0-0.2) Sodium Level 144 mmol/L (136-145) Potassium Level 4.0 mmol/L (3.5-5.1) Chloride Level 112 mmol/L (98-107) Carbon Dioxide Level 26 mmol/L (21-32) Anion Gap 6 (6-14) Blood Urea Nitrogen 11 mg/dL (8-26) Creatinine 0.9 mg/dL (0.7-1.3) Estimated GFR (Cockcroft-Gault) 82.7 BUN/Creatinine Ratio 12 (6-20) Glucose Level 100 mg/dL (70-99) Calcium Level 8.0 mg/dL (8.5-10.1) Total Bilirubin 1.5 mg/dL (0.2-1.0) Aspartate Amino Transf (AST/SGOT) 31 U/L (15-37) Alanine Aminotransferase (ALT/SGPT) 11 U/L (16-63) Alkaline Phosphatase 78 U/L (46-116) Total Protein 5.3 g/dL (6.4-8.2) Albumin 2.0 g/dL (3.4-5.0) Albumin/Globulin Ratio 0.6 (1.0-1.7) Test 9/22/20 11:18 Glucose (Fingerstick) 111 mg/dL (70-99) Medications Current Medications Morphine Sulfate (Morphine Sulfate) 2 mg PRN Q15MIN PRN IV/SQ PAIN GREATER THAN 3/10 Last administered on 05/10/20at 18:55; Start 05/10/20 at 18:30; Stop 05/11/20 at 18:29; Status DC Sodium Chloride 1,000 ml @ 1,000 mls/hr Q1H IV Last administered on 05/10/20at 18:54; Start 05/10/20 at 18:16; Stop 05/10/20 at 19:15; Status DC Ondansetron HCl (Zofran) 4 mg 1X ONCE IVP Last administered on 05/10/20at 18:54; Start 05/10/20 at 18:30; Stop 05/10/20 at 18:31; Status DC Iohexol (Omnipaque 300 Mg/ml) 60 ml 1X ONCE IV Last administered on 05/10/20at 19:46; Start 05/10/20 at 20:00; Stop 05/10/20 at 20:01; Status DC Info (CONTRAST GIVEN -- Rx MONITORING) 1 each PRN DAILY PRN MC SEE COMMENTS; Start 05/10/20 at 19:45; Stop 05/12/20 at 19:44; Status DC Magnesium Sulfate 50 ml @ 25 mls/hr 1X ONCE IV Last administered on 05/10/20at 20:00; Start 05/10/20 at 20:00; Stop 05/10/20 at 21:59; Status DC Potassium Chloride/Water 100 ml @ 50 mls/hr 1X ONCE IV Last administered on at 21:21; Start 05/10/20 at 20:00; Stop 05/10/20 at 21:59; Status DC Potassium Chloride (Klor-Con) 40 meq 1X ONCE PO ; Start 05/10/20 at 20:00; Stop 05/10/20 at 20:01; Status DC Piperacillin Sod/ Tazobactam Sod 3.375 gm/Sodium Chloride 50 ml @ 100 mls/hr 1X ONCE IV Last administered on 05/10/20at 21:21; Start 05/10/20 at 21:00; Stop 05/10/20 at 21:29; Status DC Ondansetron HCl (Zofran) 4 mg PRN Q8HRS PRN IV NAUSEA/VOMITING; Start 05/10/20 at 21:00; Stop 05/11/20 at 16:01; Status DC Potassium Chloride/Dextrose/ Sod Cl 1,000 ml @ 125 mls/hr 1X ONCE IV Last administered on 05/10/20at 22:01; Start 05/10/20 at 21:30; Stop 05/11/20 at 05:29; Status DC Lorazepam (Ativan Inj) 1 mg 1X ONCE IVP Last administered on 05/10/20at 22:02; Start 05/10/20 at 22:00; Stop 05/10/20 at 22:01; Status DC Piperacillin Sod/ Tazobactam Sod 3.375 gm/Sodium Chloride 50 ml @ 100 mls/hr Q6HRS IV Last administered on 05/16/20at 12:23; Start 05/11/20 at 06:00 Ondansetron HCl (Zofran) 4 mg PRN Q6HRS PRN IVP NAUSEA/VOMITING Last administered on 05/15/20at 03:07; Start 05/10/20 at 23:00 Morphine Sulfate (Morphine Sulfate) 2 mg PRN Q1HR PRN IV MODERATE-SEVERE PAIN (1ST) Last administered on 05/11/20at 20:01; Start 05/10/20 at 23:00; Stop 05/13/20 at 08:00; Status DC Hydromorphone HCl (Dilaudid) 0.2 mg PRN Q1HR PRN IV MODERATE PAIN; Start 05/10/20 at 23:00; Stop 05/12/20 at 12:12; Status DC Hydromorphone HCl (Dilaudid) 0.4 mg PRN Q1HR PRN IV SEVERE PAIN; Start 05/10/20 at 23:00; Stop 05/12/20 at 12:12; Status DC Heparin Sodium (Porcine) (Heparin Sodium) 5,000 unit Q12HR SQ Last administered on 05/16/20at 08:33; Start 05/11/20 at 09:00 Sodium Chloride 1,000 ml @ 100 mls/hr Q10H IV Last administered on 05/14/20at 05:49; Start 05/10/20 at 23:15; Stop 05/14/20 at 07:47; Status DC Influenza Virus Vaccine Quadrival (Fluzone Quad Syringe) 0.5 ml ONCE ONCE VAX IM Last administered on 05/11/20at 11:58; Start 05/11/20 at 09:00; Stop 05/11/20 at 09:01; Status DC Potassium Chloride/Dextrose/ Sod Cl 1,000 ml @ 75 mls/hr [id number] PRN IV . Last administered on 05/11/20at 09:07; Start 05/11/20 at 08:15; Stop 05/14/20 at 07:46; Status DC Sodium Monofluorophosphate (Fleet Adult) 133 ml 1X ONCE [place] Last administered on 05/11/20at 08:45; Start 05/11/20 at 08:45; Stop 05/11/20 at 08:46; Status DC Ringer's Solution 1,000 ml @ 75 mls/hr 1X ONCE IV Last administered on 05/11/20at 09:56; Start 05/11/20 at 10:00; Stop 05/11/20 at 23:19; Status DC Propofol (Diprivan) 200 mg STK-MED ONCE IV ; Start 05/11/20 at 10:33; Stop 05/11/20 at 10:33; Status DC Pantoprazole Sodium (PROTONIX VIAL for IV PUSH) 40 mg BIDAC IVP Last administered on 05/16/20at 08:27; Start 05/11/20 at 11:00 Ringer's Solution 1,000 ml @ 30 mls/hr Q24H IV Last administered on 05/12/20at 09:09; Start 05/12/20 at 07:00; Stop 05/12/20 at 18:59; Status DC Lidocaine HCl (Xylocaine-Mpf 1% 2ml Vial) 2 ml PRN 1X PRN ID PRIOR TO IV START; Start 05/12/20 at 07:00; Stop 05/13/20 at 06:59; Status DC Prochlorperazine Edisylate (Compazine) 5 mg PACU PRN PRN IV NAUSEA, MRX1; Start 05/12/20 at 07:00; Stop 05/13/20 at 06:59; Status DC Potassium Chloride/Water 100 ml @ 100 mls/hr Q1H IV Last administered on 9 /17/20at 18:45; Start 05/11/20 at 17:15; Stop 05/11/20 at 19:14; Status DC Potassium Chloride/Water 100 ml @ 100 mls/hr Q1H IV Last administered on 05/12/20at 06:17; Start 05/11/20 at 23:30; Stop 05/12/20 at 03:29; Status DC Potassium Chloride/Water 100 ml @ 100 mls/hr Q1H IV Last administered on 05/12/20at 23:18; Start 05/12/20 at 09:00; Stop 05/12/20 at 13:02; Status DC Ketamine HCl (Ketamine) 50 mg STK-MED ONCE .ROUTE ; Start 05/12/20 at 08:39; Stop 05/12/20 at 08:39; Status DC Rocuronium [place] (Zemuron) 100 mg STK-MED ONCE .ROUTE ; Start 05/12/20 at 08:39; Stop 05/12/20 at 08:39; Status DC Fentanyl Citrate (Fentanyl 2ml Vial) 100 mcg STK-MED ONCE .ROUTE ; Start 05/12/20 at 08:39; Stop 05/12/20 at 08:39; Status DC Desflurane (Suprane) 60 ml STK-MED ONCE IH ; Start 05/12/20 at 08:40; Stop 05/12/20 at 08:40; Status DC Propofol (Diprivan) 200 mg STK-MED ONCE IV ; Start 05/12/20 at 08:40; Stop 05/12/20 at 08:40; Status DC Dexamethasone Sodium Phosphate (Decadron) 4 mg STK-MED ONCE .ROUTE ; Start at 08:40; Stop 05/12/20 at 08:41; Status DC Phenylephrine HCl (Layo-Synephrine Inj) 10 mg STK-MED ONCE .ROUTE ; Start at 08:41; Stop 05/12/20 at 08:41; Status DC Lidocaine HCl (Lidocaine Pf 2% Vial) 5 ml STK-MED ONCE .ROUTE ; Start 05/12/20 at 08:41; Stop 05/12/20 at 08:41; Status DC Ondansetron HCl (Zofran) 4 mg STK-MED ONCE .ROUTE ; Start 05/12/20 at 08:41; Stop 05/12/20 at 08:41; Status DC Famotidine (Pepcid Vial) 20 mg STK-MED ONCE .ROUTE ; Start 05/12/20 at 08:41; Stop 05/12/20 at 08:41; Status DC Fentanyl Citrate (Fentanyl 2ml Vial) 100 mcg STK-MED ONCE .ROUTE ; Start 05/12/20 at 09:00; Stop 05/12/20 at 09:00; Status DC Fentanyl Citrate (Fentanyl 2ml Vial) 100 mcg 1X ONCE IVP Last administered on 05/12/20at 09:12; Start 05/12/20 at 09:15; Stop 05/12/20 at 09:16; Status DC Succinylcholine Chloride (Anectine) 200 mg STK-MED ONCE .ROUTE ; Start 05/12/20 at 09:41; Stop 05/12/20 at 09:42; Status DC Sugammadex Sodium (Bridion) 200 mg 1X ONCE IVP ; Start 05/12/20 at 10:15; Stop 05/12/20 at 10:16; Status DC Remifentanil HCl (Ultiva) 1 mg STK-MED ONCE IV ; Start 05/12/20 at 10:14; Stop 05/12/20 at 10:15; Status DC Ropivacaine (Naropin 0.5%) 20 ml STK-MED ONCE .ROUTE ; Start 05/12/20 at 11:38; Stop 05/12/20 at 11:38; Status DC Naloxone HCl (Narcan) 0.4 mg PRN Q2MIN PRN IV SEE INSTRUCTIONS; Start 05/12/20 at 12:15 Sodium Chloride 1,000 ml @ 25 mls/hr Q24H IV Last administered on 05/16/20at 12:24; Start 05/12/20 at 12:08 Hydromorphone HCl 30 ml @ 0 mls/hr CONT PRN PRN IV PER PROTOCOL Last administered on 05/14/20at 08:45; Start 05/12/20 at 12:15 Ondansetron HCl (Zofran) 4 mg PRN Q6HRS PRN IV NAUSEA/VOMITING; Start 05/12/20 at 13:00; Stop 05/13/20 at 08:00; Status DC Fentanyl Citrate (Fentanyl 2ml Vial) 25 mcg PRN Q5MIN PRN IV MILD PAIN 1-3; Start 05/12/20 at 13:00; Stop 05/13/20 at 08:00; Status DC Fentanyl Citrate (Fentanyl 2ml Vial) 50 mcg PRN Q5MIN PRN IV MODERATE TO SEVERE PAIN Last administered on 05/12/20at 12:59; Start 05/12/20 at 13:00; Stop 05/13/20 at 08:00; Status DC Morphine Sulfate (Morphine Sulfate) 1 mg PRN Q10MIN PRN IV SEVERE PAIN 7-10; Start 05/12/20 at 13:00; Stop 05/13/20 at 08:00; Status DC Ringer's Solution 1,000 ml @ 30 mls/hr Q24H IV ; Start 05/12/20 at 12:54; Stop 05/13/20 at 00:53; Status DC Lidocaine HCl (Xylocaine-Mpf 1% 2ml Vial) 2 ml PRN 1X PRN ID PRIOR TO IV START; Start 05/12/20 at 13:00; Stop 05/13/20 at 12:59; Status DC Hydromorphone HCl (Dilaudid) 0.5 mg PRN Q10MIN PRN IV SEV PAIN, Second choice; Start 05/12/20 at 13:00; Stop 05/13/20 at 08:00; Status DC Prochlorperazine Edisylate (Compazine) 5 mg PACU PRN PRN IV NAUSEA, MRX1; Start 05/12/20 at 13:00; Stop 05/13/20 at 08:00; Status DC Potassium Chloride/Dextrose/ Sod Cl 1,000 ml @ 75 mls/hr [id number] IV Last administered on 05/15/20at 23:00; Start 05/14/20 at 08:00 Digoxin (Lanoxin) 125 mcg DAILY PO Last administered on 05/16/20at 08:28; Start 05/16/20 at 09:00 Metoprolol Tartrate (Lopressor) 50 mg BID PO Last administered on 05/16/20at 08:28; Start 05/15/20 at 21:00; Stop 05/16/20 at 22:00 Metoprolol Tartrate (Lopressor Vial) 5 mg 1X ONCE IVP Last administered on 05/15/20at 06:07; Start 05/15/20 at 06:00; Stop 05/15/20 at 06:01; Status DC Digoxin (Lanoxin) 125 mcg 1X ONCE IV Last administered on 05/15/20at 06:27; Start 05/15/20 at 06:00; Stop 05/15/20 at 06:01; Status DC Digoxin (Lanoxin) 125 mcg 1X ONCE PO ; Start 05/15/20 at 06:00; Stop 05/15/20 at 06:01; Status DC Metoprolol Tartrate (Lopressor) 50 mg 1X ONCE PO Last administered on 05/15/20at 06:08; Start 05/15/20 at 06:00; Stop 05/15/20 at 06:01; Status DC Digoxin (Lanoxin) 250 mcg 1X ONCE IV Last administered on 05/15/20at 11:40; Start 05/15/20 at 11:30; Stop 05/15/20 at 11:31; Status DC Aspirin (Ecotrin) 81 mg DAILYWBKFT PO Last administered on 05/16/20at 08:27; Start 05/16/20 at 08:00 Atorvastatin Calcium (Lipitor) 40 mg QHS PO Last administered on 05/15/20at 20:12; Start 05/15/20 at 21:00 Metoprolol Succinate (Toprol Xl) 100 mg DAILY PO ; Start 05/17/20 at 09:00 Lisinopril (Prinivil) 5 mg DAILY PO Last administered on 05/16/20at 12:23; Start 05/16/20 at 09:30 Active Scripts Active Polyethylene Glycol 3350 17 Gm Powd.pack 17 Gm PO PRN DAILY PRN 28 Days Bisacodyl 5 Mg Tablet. 5 Mg PO PRN DAILY PRN 14 Days Acetaminophen 500 Mg Tablet 500 Mg PO PRN Q6HRS PRN 30 Days Aspirin Ec (Aspirin) 81 Mg Tablet. 81 Mg PO DAILYWBKFT 30 Days Digoxin 125 Mcg Tablet 125 Mcg PO DAILY 30 Days Eliquis (Apixaban) 5 Mg Tablet 5 Mg PO BID 30 Days Duoneb 0.5-3(2.5) Mg/3 Ml (Albuterol/Ipratropium) 3 Ml Ampul.neb 3 Ml NEB RTQID 30 Days Vitamin C (Ascorbic Acid) 500 Mg Tablet 500 Mg PO DAILY 30 Days Thera-M Tablet (Multivits,Ca,Minerals/Iron/Fa) 1 Each Tablet 1 Tab PO DAILY 30 Days Pantoprazole Sodium (Pantoprazole Sodium) 40 Mg Tablet.dr 40 Mg PO DAILYAC 30 Days Klor-Con M20 (Potassium Chloride) 20 Meq Tab.er.prt 20 Meq PO DAILYWBKFT 30 Days Percocet 5-325 Mg Tablet (Oxycodone/Acetaminophen) 1 Each Tablet 1 Tab PO PRN Q6HRS PRN 6 Days Reported Symbicort 80-4.5 Mcg Inhaler (Budesonide/Formoterol Fumarate) 10.2 Gm Hfa.aer.ad 2 Puff IH BID Metoprolol Tartrate 50 Mg Tablet 1 Tab PO BID Vitals/I & O Vital Sign - Last 24 Hours 05/15/20 05/15/20 05/15/20 05/15/20 15:04 19:00 19:53 20:12 Temp 97.6 98.1 97.6 98.1 Pulse 90 81 81 Resp 20 18 B/P (MAP) 133/72 (92) 135/64 (87) 135/64 Pulse Ox 97 93 O2 Delivery Nasal Cannula Nasal Cannula Nasal Cannula O2 Flow Rate 3.0 3.0 2.0 05/15/20 05/16/20 05/16/20 05/16/20 23:28 03:15 07:00 08:00 Temp 98.0 98.0 97.6 98.0 98.0 97.6 Pulse 81 79 94 Resp 19 18 18 B/P (MAP) 118/63 (81) 126/80 (95) 146/84 (104) Pulse Ox 95 96 96 O2 Delivery Nasal Cannula Nasal Cannula Nasal Cannula Nasal Cannula O2 Flow Rate 3.0 3.0 3.0 3.0 05/16/20 05/16/20 05/16/20 05/16/20 08:28 08:28 10:55 12:23 Temp 98.6 98.6 Pulse 94 94 86 86 Resp 18 B/P (MAP) 146/84 146/84 122/84 (97) 122/84 Pulse Ox 95 O2 Delivery Nasal Cannula O2 Flow Rate 3.0 Intake and Output 05/15/20 05/15/20 05/16/20 15:00 23:00 07:00 Intake Total 0 ml 0 ml 950 ml Output Total 600 ml 700 ml Balance 0 ml -600 ml 250 ml Nutrition Consultation Dietary Evaluation: Recommendations by RD: Dietary education by RD, Increase Calorie Intake, Protein supplementation Comments: REC advance diet as able within next 24 - 48 hrs, goal diet cardiac w/strawberry Ensure at lunch per pt request REC Ensure clear (apple) w/lunch once pt advanced to clear liquids If unable to advance diet within 24 - 48 hrs, recommend consideration of PPN for short-term nutrition support needs Expected Outcomes/Goals: diet advancement Malnutrition Findings: Food and Nutrition Intake (Sev: <50% est energy req 5days Weight Status: Appropriate Justicifation of Admission Dx: Justifications for Admission: Justification of Admission Dx: Yes (SBO, VOLVULUS, HYPOKALEMIA) ASHLYE GARDNER MD May 16, 2020 14:57
[2020-05-16] MEDS: POTASSIUM CL 40MEQ D5-0.45NACL 1,000 ML IV SCH (15:48)
--- NOTE | 2020-05-16 19:07 | PATHOLOGY ---
[facility] Accession Number: [id number] . 01 Material submitted: . sigmoid colon - SIGMOID COLON HISTORY OF VOLVULUS STITCH AT DISTAL MARGIN . 01 Clinical history: . SIGMOID COLON RESECTION SIGMOID VOLVULUS, SBO, HYPO . 02 Diagnosis: Segment of colon and attached mesocolon, sigmoid colon resection: - Serosal fibrosis and adhesions, with clinical volvulus. - Congestion of colon with focal recent hemorrhage and mild acute inflammation of mesocolon consistent with ischemia. - Mesocolic lymph nodes showing congestion and focal reactive changes. (JPM:sylvie; 05/16/2020) [facility] 05/16/2020 1613 Local . 02 Comment: Salt Cutter sections of the sigmoid colon show congestion with serosal fibrosis and adhesions. The mucosa and fibromuscular wall appear viable. There is focal recent hemorrhage and mild acute inflammation within the attached mesocolon consistent with ischemic change. There are no polyps. There is no evidence of malignancy. (JPM:sylvie; 05/16/2020) . 02 Electronically signed: . Benitez Cuba MD, Pathologist NPI- [id number] . 01 Gross description: . The specimen is received in formalin, labeled "Julián Kruger, sigmoid colon, stitch at distal margin". Received is an oriented segment of colon measuring 21.8 cm in length and ranges in diameter from 2.5 to 5.1 cm. Both margins are stapled closed and a suture is present at one margin to designating this as the distal aspect. The serosal surface is dusky pink-ramirez in appearance. The attached pericolic fat measures up to 5.5 cm in thickness. The specimen is opened along the antimesenteric line to reveal dusky ramirez-brown mucosa with moderate architectural folds. No distinct nodules or lesions are noted grossly. Sectioning through the attached pericolic fat reveals four readily identifiable lymph nodes ranging in size from 0.2 to 0.4 cm in maximum dimensions. The specimen is submitted representatively as follows: . A1 proximal margin A2 distal margin A3-A4 escrow representative cross-sections of mucosa A5 intact lymph nodes. (CAA; 05/15/2020) QA/[facility] 05/15/2020 1145 Local . 02 Pathologist provided ICD-10: K56.2, K92.2, K52.9 . 02 CPT . 868857 Specimen Comment: A courtesy copy of this report has been sent to [phone], [phone] Specimen Comment: [id number] Specimen Comment: Report sent to / DR BURGOS Performed at: 01 [facility] [address] [address], [place] [id number] MD Martínez Rodriguez MD Phone: [phone] Performed at: 02 [facility] [address] [place], [place] [id number] MD Benitez Cuba MD Phone: [phone]
[2020-05-16 19:19] VITALS: BP 154/76
--- NOTE | 2020-05-16 19:40 | NUR ---
Assessment completed vss poc explained pt denied pain but c/o not being able to eat will resume are and continue to monitor pt.call light in reach.
[2020-05-16] MEDS: ATORVASTATIN CALCIUM 40 MG TABLET. PO SCH (21:01)
--- NOTE | 2020-05-16 21:30 | NUR ---
Pt refractory bricklayer pump malfunctioning reading attach cord and not allowing pt to receive medication, new refractory bricklayer pump hooked up will monitor pt.
[2020-05-16 22:41] VITALS: BP 157/82
[2020-05-17] VITALS (7 sets, daily range): BP systolic 135–153; BP diastolic 74–91
[2020-05-17] MEDS: POTASSIUM CL 40MEQ D5-0.45NACL 1,000 ML IV SCH ×2 (03:35→21:19)
[2020-05-17] MEDS: PIPERACILLIN/TAZOBACTAM 3.375 GM in IV NORMAL SALINE 50ML 50 ML IV SCH ×4 (05:33→23:28)
[2020-05-17] MEDS: PANTOPRAZOLE IV PUSH 40 MG VIAL. IVP SCH ×2 (05:33→17:36)
[2020-05-17] MEDS: ASPIRIN ENTERIC COATED 81 MG TABLET.DR. PO SCH (08:30)
[2020-05-17] MEDS: METOPROLOL SUCC 24HR ER 100 MG TAB.ER.24H. PO SCH (08:33)
[2020-05-17] MEDS: LISINOPRIL 5 MG TABLET. PO SCH (08:33)
[2020-05-17] MEDS: DIGOXIN 125 MCG TABLET. PO SCH (08:34)
[2020-05-17] MEDS: HEPARIN for SUB-Q USE 5,000 UNIT/ML VIAL. SQ SCH (08:39)
--- NOTE | 2020-05-17 10:00 | PDOC ---
Date of Service: DATE: 05/17/20 TIME: 09:56 Subjective: Subjective: "A little" stool, has pain. Objective: Objective: Stools charted. Vital Signs: Vital Signs Date Time Temp Pulse Resp B/P (MAP) Pulse Ox O2 Delivery O2 Flow Rate FiO2 05/17/20 08:39 91 144/91 (108) 05/17/20 07:21 97.5 22 96 Room Air 97.5 05/17/20 02:38 2.0 Labs: Laboratory Tests Test 05/16/20 11:18 Glucose (Fingerstick) 111 mg/dL Material submitted: . sigmoid colon - SIGMOID COLON HISTORY OF VOLVULUS STITCH AT DISTAL MARGIN Clinical history: . SIGMOID COLON RESECTION Diagnosis: Segment of colon and attached mesocolon, sigmoid colon resection: - Serosal fibrosis and adhesions, with clinical volvulus. - Congestion of colon with focal recent hemorrhage and mild acute inflammation of mesocolon consistent with ischemia. - Mesocolic lymph nodes showing congestion and focal reactive changes. Comment: Public Policy Coordinator sections of the sigmoid colon show congestion with serosal fibrosis and adhesions. The mucosa and fibromuscular wall appear viable. There is focal recent hemorrhage and mild acute inflammation within the attached mesocolon consistent with ischemic change. There are no polyps. There is no evidence of malignancy. 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 Continue per surgery. Justicifation of Admission Dx: Justifications for Admission: Justification of Admission Dx: Yes (SBO, VOLVULUS, HYPOKALEMIA) SABINA LOOMIS May 17, 2020 10:00
--- NOTE | 2020-05-17 10:38 | PDOC ---
KAYLI HOWARD DUST COLLECTOR OPERATOR 05/17/20 1038: SURGICAL PROGRESS NOTE DATE: 05/17/20 TIME: 10:36 Subjective + stool no n/v wants soda Vital Signs Vital Signs Date Time Temp Pulse Resp B/P (MAP) Pulse Ox O2 Delivery O2 Flow Rate FiO2 05/17/20 10:21 97.7 84 22 139/76 (97) 97 Room Air 97.7 05/17/20 02:38 2.0 I&O Intake and Output 05/17/20 07:00 Intake Total 0 ml Output Total 1300 ml Balance -1300 ml Intake Oral 0 ml Output Urine Total 1300 ml # Voids 1 # Bowel Movements 2 General: Alert, Oriented X3, Cooperative Abdomen: Soft, Other (dressing dry) Labs Laboratory Tests Test 05/15/20 11:23 05/15/20 16:29 05/15/20 20:37 05/16/20 04:50 Glucose (Fingerstick) 114 mg/dL (70-99) 105 mg/dL (70-99) 101 mg/dL (70-99) White Blood Count 9.7 x10^3/uL (4.0-11.0) Red Blood Count 4.20 x10^6/uL (4.30-5.70) Hemoglobin 13.0 g/dL (13.0-17.5) Hematocrit 38.6 % (39.0-53.0) Mean Corpuscular Volume 92 fL (79-100) Mean Corpuscular Hemoglobin 31 pg (25-35) Mean Corpuscular Hemoglobin Concent 34 g/dL (31-37) Red Cell Distribution Width 15.6 % (11.5-14.5) Platelet Count 168 x10^3/uL (140-400) Neutrophils (%) (Auto) 66 % (31-73) Lymphocytes (%) (Auto) 15 % (24-48) Monocytes (%) (Auto) 8 % (0-9) Eosinophils (%) (Auto) 10 % (0-3) Basophils (%) (Auto) 1 % (0-3) Neutrophils # (Auto) 6.4 x10^3/uL (1.8-7.7) Lymphocytes # (Auto) 1.5 x10^3/uL (1.0-4.8) Monocytes # (Auto) 0.7 x10^3/uL (0.0-1.1) Eosinophils # (Auto) 1.0 x10^3/uL (0.0-0.7) Basophils # (Auto) 0.1 x10^3/uL (0.0-0.2) Sodium Level 144 mmol/L (136-145) Potassium Level 4.0 mmol/L (3.5-5.1) Chloride Level 112 mmol/L (98-107) Carbon Dioxide Level 26 mmol/L (21-32) Anion Gap 6 (6-14) Blood Urea Nitrogen 11 mg/dL (8-26) Creatinine 0.9 mg/dL (0.7-1.3) Estimated GFR (Cockcroft-Gault) 82.7 BUN/Creatinine Ratio 12 (6-20) Glucose Level 100 mg/dL (70-99) Calcium Level 8.0 mg/dL (8.5-10.1) Total Bilirubin 1.5 mg/dL (0.2-1.0) Aspartate Amino Transf (AST/SGOT) 31 U/L (15-37) Alanine Aminotransferase (ALT/SGPT) 11 U/L (16-63) Alkaline Phosphatase 78 U/L (46-116) Total Protein 5.3 g/dL (6.4-8.2) Albumin 2.0 g/dL (3.4-5.0) Albumin/Globulin Ratio 0.6 (1.0-1.7) Test 05/16/20 07:35 05/16/20 11:18 Glucose (Fingerstick) 110 mg/dL (70-99) 111 mg/dL (70-99) Laboratory Tests Test 05/16/20 11:18 Glucose (Fingerstick) 111 mg/dL (70-99) Problem List Problems Medical Problems: (1) Abdominal pain Status: Acute (2) Sigmoid volvulus Status: Acute (3) Small bowel obstruction Status: Acute Assessment/Plan bowel function returning will start clears ok to resume eliquis Justicifation of Admission Dx: Justifications for Admission: Justification of Admission Dx: Yes (SBO, VOLVULUS, HYPOKALEMIA) SHELIA CASTILLO MD 05/17/20 1139: SURGICAL PROGRESS NOTE Assessment/Plan Agree with above KAYLI HOWARD APRN May 17, 2020 10:38 SHELIA CASTILLO MD May 17, 2020 11:39
--- NOTE | 2020-05-17 11:08 | NUR ---
SS following up with discharge planning. SS reviewed pt chart and discussed with pt RN. Pt is currently on room air. COVID19 negative. 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 Pt declining snf unit and home healthcare at this time. SS will continue to follow for discharge planning.
[2020-05-17] MEDS: IV NORMAL SALINE 1000ML BAG 1,000 ML IV SCH (12:08)
--- NOTE | 2020-05-17 12:16 | PDOC ---
PROGRESS NOTES Date of Service: DATE: 05/17/20 TIME: 12:15 Chief Complaint Chief Complaint IMPRESSION Sigmoid volvulus, status post exploratory laparotomy and sigmoid colon resection Wall thickening of the rectum and sigmoid colon is consistent with a component of colitis. NPO--await bowel function now in Afib, cardiac consulted 05/15 move to c Follow GI and general oracle identity management consultant recommendations Remain n.p.o. as per case consultant Maintenance fluids Pain management Continue IV antibiotics and supportive care History of Present Illness History of Present Illness 05/12 Patient status post exploratory laparotomy and sigmoid colon resection, 05/12. He states his pain is well controlled. NG tube in place. Denies any fevers. Discussed with RN. 05/13 Patient post ex lap and sigmoid colon resection. Pain well controlled with pain pump. NG tube in place. He tolerated a popsicle today. Denies any fevers. 05/15 Pain remains well controlled. Tolerating popsicle and ice chips. NG tube in place, will removed today. Advance diet slowly. 05/16 No acute events reported overnight, case discussed with nursing staff patient in no acute distress no complaints during my visit. N.p.o. as per attending 05/17 Patient laying in bed in no acute distress. No acute events reported overnight, the patient had 2 bowel movements as per nursing staff. We are waiting for assembler surgical garment to start diet, patient is wanting to have liquids and is feeling hungry. He is passing gases as well reassurance has been provided Vitals Vitals Vital Signs Date Time Temp Pulse Resp B/P (MAP) Pulse Ox O2 Delivery O2 Flow Rate FiO2 05/17/20 10:21 97.7 84 22 139/76 (97) 97 Room Air 97.7 05/17/20 02:38 2.0 Physical Exam General: Alert, Oriented X3, Cooperative Heart: Regular rate, Other (tachy) Lungs: Clear Abdomen: Soft, Other (dressing dry) Extremities: No clubbing, No cyanosis Skin: No rashes, No breakdown Assessment and Plan Assessmemt and Plan Problems Medical Problems: (1) Abdominal pain Status: Acute (2) Sigmoid volvulus Status: Acute (3) Small bowel obstruction Status: Acute Comment Review of Relevant I have reviewed the following items ben (where applicable) has been applied. Labs Laboratory Tests Test 05/15/20 16:29 9/21/20 20:37 05/16/20 04:50 05/16/20 07:35 Glucose (Fingerstick) 105 mg/dL (70-99) 101 mg/dL (70-99) 110 mg/dL (70-99) White Blood Count 9.7 x10^3/uL (4.0-11.0) Red Blood Count 4.20 x10^6/uL (4.30-5.70) Hemoglobin 13.0 g/dL (13.0-17.5) Hematocrit 38.6 % (39.0-53.0) Mean Corpuscular Volume 92 fL (79-100) Mean Corpuscular Hemoglobin 31 pg (25-35) Mean Corpuscular Hemoglobin Concent 34 g/dL (31-37) Red Cell Distribution Width 15.6 % (11.5-14.5) Platelet Count 168 x10^3/uL (140-400) Neutrophils (%) (Auto) 66 % (31-73) Lymphocytes (%) (Auto) 15 % (24-48) Monocytes (%) (Auto) 8 % (0-9) Eosinophils (%) (Auto) 10 % (0-3) Basophils (%) (Auto) 1 % (0-3) Neutrophils # (Auto) 6.4 x10^3/uL (1.8-7.7) Lymphocytes # (Auto) 1.5 x10^3/uL (1.0-4.8) Monocytes # (Auto) 0.7 x10^3/uL (0.0-1.1) Eosinophils # (Auto) 1.0 x10^3/uL (0.0-0.7) Basophils # (Auto) 0.1 x10^3/uL (0.0-0.2) Sodium Level 144 mmol/L (136-145) Potassium Level 4.0 mmol/L (3.5-5.1) Chloride Level 112 mmol/L (98-107) Carbon Dioxide Level 26 mmol/L (21-32) Anion Gap 6 (6-14) Blood Urea Nitrogen 11 mg/dL (8-26) Creatinine 0.9 mg/dL (0.7-1.3) Estimated GFR (Cockcroft-Gault) 82.7 BUN/Creatinine Ratio 12 (6-20) Glucose Level 100 mg/dL (70-99) Calcium Level 8.0 mg/dL (8.5-10.1) Total Bilirubin 1.5 mg/dL (0.2-1.0) Aspartate Amino Transf (AST/SGOT) 31 U/L (15-37) Alanine Aminotransferase (ALT/SGPT) 11 U/L (16-63) Alkaline Phosphatase 78 U/L (46-116) Total Protein 5.3 g/dL (6.4-8.2) Albumin 2.0 g/dL (3.4-5.0) Albumin/Globulin Ratio 0.6 (1.0-1.7) Test 05/16/20 11:18 Glucose (Fingerstick) 111 mg/dL (70-99) Medications Current Medications Morphine Sulfate (Morphine Sulfate) 2 mg PRN Q15MIN PRN IV/SQ PAIN GREATER THAN 3/10 Last administered on 05/10/20at 18:55; Start 05/10/20 at 18:30; Stop 05/11/20 at 18:29; Status DC Sodium Chloride 1,000 ml @ 1,000 mls/hr Q1H IV Last administered on 05/10/20at 18:54; Start 05/10/20 at 18:16; Stop 05/10/20 at 19:15; Status DC Ondansetron HCl (Zofran) 4 mg 1X ONCE IVP Last administered on 05/10/20at 18:54; Start 05/10/20 at 18:30; Stop 05/10/20 at 18:31; Status DC Iohexol (Omnipaque 300 Mg/ml) 60 ml 1X ONCE IV Last administered on 05/10/20at 19:46; Start 05/10/20 at 20:00; Stop 05/10/20 at 20:01; Status DC Info (CONTRAST GIVEN -- Rx MONITORING) 1 each PRN DAILY PRN MC SEE COMMENTS; Start 05/10/20 at 19:45; Stop 05/12/20 at 19:44; Status DC Magnesium Sulfate 50 ml @ 25 mls/hr 1X ONCE IV Last administered on 05/10/20at 20:00; Start 05/10/20 at 20:00; Stop 05/10/20 at 21:59; Status DC Potassium Chloride/Water 100 ml @ 50 mls/hr 1X ONCE IV Last administered on 9/16/20at 21:21; Start 05/10/20 at 20:00; Stop 05/10/20 at 21:59; Status DC Potassium Chloride (Klor-Con) 40 meq 1X ONCE PO ; Start 05/10/20 at 20:00; Stop 05/10/20 at 20:01; Status DC Piperacillin Sod/ Tazobactam Sod 3.375 gm/Sodium Chloride 50 ml @ 100 mls/hr 1X ONCE IV Last administered on 05/10/20at 21:21; Start 05/10/20 at 21:00; Stop 05/10/20 at 21:29; Status DC Ondansetron HCl (Zofran) 4 mg PRN Q8HRS PRN IV NAUSEA/VOMITING; Start 05/10/20 at 21:00; Stop 05/11/20 at 16:01; Status DC Potassium Chloride/Dextrose/ Sod Cl 1,000 ml @ 125 mls/hr 1X ONCE IV Last administered on 05/10/20at 22:01; Start 05/10/20 at 21:30; Stop 05/11/20 at 05:29; Status DC Lorazepam (Ativan Inj) 1 mg 1X ONCE IVP Last administered on 05/10/20at 22:02; Start 05/10/20 at 22:00; Stop 05/10/20 at 22:01; Status DC Piperacillin Sod/ Tazobactam Sod 3.375 gm/Sodium Chloride 50 ml @ 100 mls/hr Q6 HRS IV Last administered on 05/17/20at 05:33; Start 05/11/20 at 06:00 Ondansetron HCl (Zofran) 4 mg PRN Q6HRS PRN IVP NAUSEA/VOMITING Last administered on 05/15/20at 03:07; Start 05/10/20 at 23:00 Morphine Sulfate (Morphine Sulfate) 2 mg PRN Q1HR PRN IV MODERATE-SEVERE PAIN (1ST) Last administered on 05/11/20at 20:01; Start 05/10/20 at 23:00; Stop 05/13/20 at 08:00; Status DC Hydromorphone HCl (Dilaudid) 0.2 mg PRN Q1HR PRN IV MODERATE PAIN; Start 05/10/20 at 23:00; Stop 05/12/20 at 12:12; Status DC Hydromorphone HCl (Dilaudid) 0.4 mg PRN Q1HR PRN IV SEVERE PAIN; Start 05/10/20 at 23:00; Stop 05/12/20 at 12:12; Status DC Heparin Sodium (Porcine) (Heparin Sodium) 5,000 unit Q12HR SQ Last administered on 05/17/20at 08:39; Start 05/11/20 at 09:00 Sodium Chloride 1,000 ml @ 100 mls/hr Q10H IV Last administered on 05/14/20at 05:49; Start 05/10/20 at 23:15; Stop 05/14/20 at 07:47; Status DC Influenza Virus Vaccine Quadrival (Fluzone Quad Syringe) 0.5 ml ONCE ONCE VAX IM Last administered on 05/11/20at 11:58; Start 05/11/20 at 09:00; Stop 05/11/20 at 09:01; Status DC Potassium Chloride/Dextrose/ Sod Cl 1,000 ml @ 75 mls/hr [id number] PRN IV . Last administered on 05/11/20at 09:07; Start 05/11/20 at 08:15; Stop 05/14/20 at 07:46; Status DC Sodium Monofluorophosphate (Fleet Adult) 133 ml 1X ONCE MN Last administered on 05/11/20at 08:45; Start 05/11/20 at 08:45; Stop 05/11/20 at 08:46; Status DC Ringer's Solution 1,000 ml @ 75 mls/hr 1X ONCE IV Last administered on 05/11/20at 09:56; Start 05/11/20 at 10:00; Stop 05/11/20 at 23:19; Status DC Propofol (Diprivan) 200 mg STK-MED ONCE IV ; Start 05/11/20 at 10:33; Stop 05/11/20 at 10:33; Status DC Pantoprazole Sodium (PROTONIX VIAL for IV PUSH) 40 mg BIDAC IVP Last administered on 05/17/20at 05:33; Start 05/11/20 at 11:00 Ringer's Solution 1,000 ml @ 30 mls/hr Q24H IV Last administered on 05/12/20at 09:09; Start 05/12/20 at 07:00; Stop 05/12/20 at 18:59; Status DC Lidocaine HCl (Xylocaine-Mpf 1% 2ml Vial) 2 ml PRN 1X PRN ID PRIOR TO IV START; Start 05/12/20 at 07:00; Stop 05/13/20 at 06:59; Status DC Prochlorperazine Edisylate (Compazine) 5 mg PACU PRN PRN IV NAUSEA, MRX1; St art 05/12/20 at 07:00; Stop 05/13/20 at 06:59; Status DC Potassium Chloride/Water 100 ml @ 100 mls/hr Q1H IV Last administered on 05/11/20at 18:45; Start 05/11/20 at 17:15; Stop 05/11/20 at 19:14; Status DC Potassium Chloride/Water 100 ml @ 100 mls/hr Q1H IV Last administered on 05/12/20at 06:17; Start 05/11/20 at 23:30; Stop 05/12/20 at 03:29; Status DC Potassium Chloride/Water 100 ml @ 100 mls/hr Q1H IV Last administered on 05/12/20at 23:18; Start 05/12/20 at 09:00; Stop 05/12/20 at 13:02; Status DC Ketamine HCl (Ketamine) 50 mg STK-MED ONCE .ROUTE ; Start 05/12/20 at 08:39; Stop 05/12/20 at 08:39; Status DC Rocuronium [place] (Zemuron) 100 mg STK-MED ONCE .ROUTE ; Start 05/12/20 at 08:39; Stop 05/12/20 at 08:39; Status DC Fentanyl Citrate (Fentanyl 2ml Vial) 100 mcg STK-MED ONCE .ROUTE ; Start 05/12/20 at 08:39; Stop 05/12/20 at 08:39; Status DC Desflurane (Suprane) 60 ml STK-MED ONCE IH ; Start 05/12/20 at 08:40; Stop 05/12/20 at 08:40; Status DC Propofol (Diprivan) 200 mg STK-MED ONCE IV ; Start 05/12/20 at 08:40; Stop 05/12/20 at 08:40; Status DC Dexamethasone Sodium Phosphate (Decadron) 4 mg STK-MED ONCE .ROUTE ; Start 05/12/20 at 08:40; Stop 05/12/20 at 08:41; Status DC Phenylephrine HCl (Layo-Synephrine Inj) 10 mg STK-MED ONCE .ROUTE ; Start 05/12/20 at 08:41; Stop 05/12/20 at 08:41; Status DC Lidocaine HCl (Lidocaine Pf 2% Vial) 5 ml STK-MED ONCE .ROUTE ; Start 05/12/20 at 08:41; Stop 05/12/20 at 08:41; Status DC Ondansetron HCl (Zofran) 4 mg STK-MED ONCE .ROUTE ; Start 05/12/20 at 08:41; Stop 05/12/20 at 08:41; Status DC Famotidine (Pepcid Vial) 20 mg STK-MED ONCE .ROUTE ; Start 05/12/20 at 08:41; Stop 05/12/20 at 08:41; Status DC Fentanyl Citrate (Fentanyl 2ml Vial) 100 mcg STK-MED ONCE .ROUTE ; Start 05/12/20 at 09:00; Stop 05/12/20 at 09:00; Status DC Fentanyl Citrate (Fentanyl 2ml Vial) 100 mcg 1X ONCE IVP Last administered on 05/12/20at 09:12; Start 05/12/20 at 09:15; Stop 05/12/20 at 09:16; Status DC Succinylcholine Chloride (Anectine) 200 mg STK-MED ONCE .ROUTE ; Start 05/12/20 at 09:41; Stop 05/12/20 at 09:42; Status DC Sugammadex Sodium (Bridion) 200 mg 1X ONCE IVP ; Start 05/12/20 at 10:15; Stop 05/12/20 at 10:16; Status DC Remifentanil HCl (Ultiva) 1 mg STK-MED ONCE IV ; Start 05/12/20 at 10:14; Stop 05/12/20 at 10:15; Status DC Ropivacaine (Naropin 0.5%) 20 ml STK-MED ONCE .ROUTE ; Start 05/12/20 at 11:38; Stop 05/12/20 at 11:38; Status DC Naloxone HCl (Narcan) 0.4 mg PRN Q2MIN PRN IV SEE INSTRUCTIONS; Start 05/12/20 at 12:15 Sodium Chloride 1,000 ml @ 25 mls/hr Q24H IV Last administered on 05/16/20at 12:24; Start 05/12/20 at 12:08 Hydromorphone HCl 30 ml @ 0 mls/hr CONT PRN PRN IV PER PROTOCOL Last administered on 05/14/20at 08:45; Start 05/12/20 at 12:15 Ondansetron HCl (Zofran) 4 mg PRN Q6HRS PRN IV NAUSEA/VOMITING; Start 05/12/20 at 13:00; Stop 05/13/20 at 08:00; Status DC Fentanyl Citrate (Fentanyl 2ml Vial) 25 mcg PRN Q5MIN PRN IV MILD PAIN 1-3; Start 05/12/20 at 13:00; Stop 05/13/20 at 08:00; Status DC Fentanyl Citrate (Fentanyl 2ml Vial) 50 mcg PRN Q5MIN PRN IV MODERATE TO SEVERE PAIN Last administered on 05/12/20at 12:59; Start 05/12/20 at 13:00; Stop 05/13/20 at 08:00; Status DC Morphine Sulfate (Morphine Sulfate) 1 mg PRN Q10MIN PRN IV SEVERE PAIN 7-10; Start 05/12/20 at 13:00; Stop 05/13/20 at 08:00; Status DC Ringer's Solution 1,000 ml @ 30 mls/hr Q24H IV ; Start 05/12/20 at 12:54; Stop 05/13/20 at 00:53; Status DC Lidocaine HCl (Xylocaine-Mpf 1% 2ml Vial) 2 ml PRN 1X PRN ID PRIOR TO IV START; Start 05/12/20 at 13:00; Stop 05/13/20 at 12:59; Status DC Hydromorphone HCl (Dilaudid) 0.5 mg PRN Q10MIN PRN IV SEV PAIN, Second choice; Start 05/12/20 at 13:00; Stop 05/13/20 at 08:00; Status DC Prochlorperazine Edisylate (Compazine) 5 mg PACU PRN PRN IV NAUSEA, MRX1; Start 05/12/20 at 13:00; Stop 05/13/20 at 08:00; Status DC Potassium Chloride/Dextrose/ Sod Cl 1,000 ml @ 75 mls/hr [id number] IV Last administered on 05/17/20at 03:35; Start 05/14/20 at 08:00 Digoxin (Lanoxin) 125 mcg DAILY PO Last administered on 05/17/20at 08:34; Start 05/16/20 at 09:00 Metoprolol Tartrate (Lopressor) 50 mg BID PO Last administered on 05/16/20at 21:02; Start 05/15/20 at 21:00; Stop 05/16/20 at 22:00; Status DC Metoprolol Tartrate (Lopressor Vial) 5 mg 1X ONCE IVP Last administered on 05/15/20at 06:07; Start 05/15/20 at 06:00; Stop 05/15/20 at 06:01; Status DC Digoxin (Lanoxin) 125 mcg 1X ONCE IV Last administered on 05/15/20at 06:27; Start 05/15/20 at 06:00; Stop 05/15/20 at 06:01; Status DC Digoxin (Lanoxin) 125 mcg 1X ONCE PO ; Start 05/15/20 at 06:00; Stop 05/15/20 a t 06:01; Status DC Metoprolol Tartrate (Lopressor) 50 mg 1X ONCE PO Last administered on 05/15/20at 06:08; Start 05/15/20 at 06:00; Stop 05/15/20 at 06:01; Status DC Digoxin (Lanoxin) 250 mcg 1X ONCE IV Last administered on 05/15/20at 11:40; Start 05/15/20 at 11:30; Stop 05/15/20 at 11:31; Status DC Aspirin (Ecotrin) 81 mg [id number] PO Last administered on 05/17/20at 08:30; Start 05/16/20 at 08:00 Atorvastatin Calcium (Lipitor) 40 mg QHS PO Last administered on 05/16/20at 21:01; Start 05/15/20 at 21:00 Metoprolol Succinate (Toprol Xl) 100 mg DAILY PO Last administered on 05/17/20at 08:33; Start 05/17/20 at 09:00 Lisinopril (Prinivil) 5 mg DAILY PO Last administered on 05/17/20at 08:33; Start 05/16/20 at 09:30 Active Scripts Active Polyethylene Glycol 3350 17 Gm Powd.pack 17 Gm PO PRN DAILY PRN 28 Days Bisacodyl 5 Mg Tablet.dr 5 Mg PO PRN DAILY PRN 14 Days Acetaminophen 500 Mg Tablet 500 Mg PO PRN Q6HRS PRN 30 Days Aspirin Ec (Aspirin) 81 Mg Tablet. 81 Mg PO DAILYWBKFT 30 Days Digoxin 125 Mcg Tablet 125 Mcg PO DAILY 30 Days Eliquis (Apixaban) 5 Mg Tablet 5 Mg PO BID 30 Days Duoneb 0.5-3(2.5) Mg/3 Ml (Albuterol/Ipratropium) 3 Ml Ampul.neb 3 Ml NEB RTQID 30 Days Vitamin C (Ascorbic Acid) 500 Mg Tablet 500 Mg PO DAILY 30 Days Thera-M Tablet (Multivits,Ca,Minerals/Iron/Fa) 1 Each Tablet 1 Tab PO DAILY 30 Days Pantoprazole Sodium (Pantoprazole Sodium) 40 Mg Tablet. 40 Mg PO DAILYAC 30 Days Klor-Con M20 (Potassium Chloride) 20 Meq Tab.er.prt 20 Meq PO DAILYWBKFT 30 Days Percocet 5-325 Mg Tablet (Oxycodone/Acetaminophen) 1 Each Tablet 1 Tab PO PRN Q6HRS PRN 6 Days Reported Symbicort 80-4.5 Mcg Inhaler (Budesonide/Formoterol Fumarate) 10.2 Gm Hfa.aer.ad 2 Puff IH BID Metoprolol Tartrate 50 Mg Tablet 1 Tab PO BID Vitals/I & O Vital Sign - Last 24 Hours 05/16/20 05/16/20 05/16/20 05/16/20 12:23 14:55 19:19 19:40 Temp 98.8 99.6 98.8 99.6 Pulse 86 103 88 Resp B/P (MAP) 122/84 141/72 (95) 154/76 (102) Pulse Ox 92 96 O2 Delivery Room Air Nasal Cannula Room Air O2 Flow Rate 1.0 05/16/20 05/16/20 05/17/20 05/17/20 21:02 22:41 02:38 07:21 Temp 98.9 98.1 97.5 98.9 98.1 97.5 Pulse 101 90 96 88 Resp 22 B/P (MAP) 154/76 157/82 (107) 153/80 (104) 136/83 (100) Pulse Ox 94 93 96 O2 Delivery Room Air Nasal Cannula Room Air O2 Flow Rate 2.0 9/2305/17/20 05/17/20 05/17/20 08:00 08:33 08:33 08:34 Pulse 91 91 91 B/P (MAP) 144/91 144/91 144/91 O2 Delivery Room Air 05/17/20 05/17/20 08:39 10:21 Temp 97.7 97.7 Pulse 91 84 Resp 22 B/P (MAP) 144/91 (108) 139/76 (97) Pulse Ox 97 O2 Delivery Room Air Intake and Output 05/16/20 05/16/20 05/17/20 15:00 23:00 07:00 Intake Total 0 ml Output Total 400 ml 600 ml 300 ml Balance -400 ml -600 ml -300 ml Nutrition Consultation Dietary Evaluation: Recommendations by RD: Dietary education by RD, Increase Calorie Intake, Protein supplementation Comments: REC advance diet as able within next 24 - 48 hrs, goal diet cardiac w/strawberry Ensure at lunch per pt request REC Ensure clear (apple) w/lunch once pt advanced to clear liquids If unable to advance diet within 24 - 48 hrs, recommend consideration of PPN for short-term nutrition support needs Expected Outcomes/Goals: diet advancement Malnutrition Findings: Food and Nutrition Intake (Sev: <50% est energy req 5days Weight Status: Appropriate Justicifation of Admission Dx: Justifications for Admission: Justification of Admission Dx: Yes (SBO, VOLVULUS, HYPOKALEMIA) ASHLEY GARDNER MD May 17, 2020 12:16
[2020-05-17] MEDS: HYDROmorphone 12mg/30ml PCA 30 ML IV PRN (13:13)
--- NOTE | 2020-05-17 14:11 | PDOC ---
RAMIRO LAGUERRE BUCKET WASH OPERATOR 05/17/20 1411: CARDIO Progress Notes Date and Time Date of Service 05/17/20 Time of Evaluation 1210 Subjective Subjective: No Chest Pain, No shortness of breath Vitals Vitals Vital Signs Date Time Temp Pulse Resp B/P (MAP) Pulse Ox O2 Delivery O2 Flow Rate FiO2 05/17/20 13:13 97 Room Air 2.0 05/17/20 10:21 97.7 84 22 139/76 (97) 97.7 Weight Weight [ ] Input and Output Intake and Output Intake and Output 05/17/20 07:00 Intake Total 0 ml Output Total 1300 ml Balance -1300 ml Intake Oral 0 ml Output Urine Total 1300 ml # Voids 1 # Bowel Movements 2 Physical Exam HEENT: Neck Supple W Full Motion Chest: Symmetric LUNGS: Clear to Auscultation, Other (diminished bases ) Heart: irregularly irregular (AFIB-rate controlled ) Abdomen: Other (post-op drsg c/d/i ) Extremities: No Edema, Other (now wounds. Extremities warm to touch) Neurology: alert, oriented, follow commands Assessment Assessment 1. Abdominal pain. CT with sigmoid volvulus. S/p sigmoid colon resection 05/12 2. PAFIB with RVR; remains in AFIB. rate now controlled with resumption of Digoxin and metoprolol 3. 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 Appears compensated 4. CAD; recent cath with 2-vessel disease. No lesions needing intervention noted 5. PAD; s/p recent MACHINE PACKAGER of the LSFA. Has OUTER DIAMETER TECHNICIAN of the right SFA. 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 Olmos as scheduled. Justicifation of Admission Dx: Justifications for Admission: Justification of Admission Dx: Yes (SBO, VOLVULUS, HYPOKALEMIA) GRACY OLMOS MD 05/17/20 1500: CARDIO Progress Notes Plan Plan The patient was seen and interviewed as well as examined at the bedside. The chart was reviewed. The case was discussed. Agree with the plan of care. RAMIRO LAGUERRE APRN May 17, 2020 14:11 GRACY OLMOS MD May 17, 2020 15:00
[2020-05-17] MEDS: ANTI-COAG MONITOR BY PHARMACY. MC PRN (14:53)
[2020-05-17] MEDS ORDERED: ONDANSETRON PF 4 MG/2 ML VIAL. IVP PRN (16:45)
[2020-05-17] MEDS: ONDANSETRON PF 4 MG/2 ML VIAL. IVP PRN (17:36)
--- NOTE | 2020-05-17 18:50 | NUR ---
Pt notes to have a copious amount of vomit at this time. He was advanced to a clear liquid diet, however he has since been refusing eating or drinking anything for the rest of the day. Pt stated this has happened post surgery prior to this episode. PRN zofran given. Pt resting in bed with eyes closed. Will continue to monitor.
--- NOTE | 2020-05-17 20:00 | NUR ---
Pt in bed assessment completed vss poc explained pt with some pain and was reeducated on use of the mamma logist, call light in reach will resume care and continue to monitor pt.
[2020-05-17] MEDS: APIXABAN 5 MG TABLET. PO SCH (21:18)
[2020-05-17] MEDS: ATORVASTATIN CALCIUM 40 MG TABLET. PO SCH (21:18)
[2020-05-18] VITALS (7 sets, daily range): BP systolic 102–148; BP diastolic 40–84
[2020-05-18] MEDS: PIPERACILLIN/TAZOBACTAM 3.375 GM in IV NORMAL SALINE 50ML 50 ML IV SCH ×4 (05:37→23:37)
[2020-05-18] MEDS: PANTOPRAZOLE IV PUSH 40 MG VIAL. IVP SCH ×2 (05:38→17:25)
[2020-05-18] MEDS: APIXABAN 5 MG TABLET. PO SCH ×2 (09:12→20:40)
[2020-05-18] MEDS: METOPROLOL SUCC 24HR ER 100 MG TAB.ER.24H. PO SCH (09:12)
[2020-05-18] MEDS: ASPIRIN ENTERIC COATED 81 MG TABLET.DR. PO SCH (09:12)
[2020-05-18] MEDS: DIGOXIN 125 MCG TABLET. PO SCH (09:13)
[2020-05-18] MEDS: LISINOPRIL 5 MG TABLET. PO SCH (09:13)
[2020-05-18 09:27] LABS: CALCIUM 8.3 mg/dL (8.5-10.1); CREATININE 1.2 mg/dL (0.7-1.3); GFR 59.3; POTASSIUM 4.2 mmol/L (3.5-5.1)
--- NOTE | 2020-05-18 09:41 | PDOC ---
SURGICAL PROGRESS NOTE DATE: 05/18/20 TIME: 09:40 Subjective emesis x 1 yesterday--now tolerating clears having stools Vital Signs Vital Signs Date Time Temp Pulse Resp B/P (MAP) Pulse Ox O2 Delivery O2 Flow Rate FiO2 05/18/20 09:13 78 148/77 05/18/20 06:10 97.9 18 94 Nasal Cannula 4.0 97.9 I&O Intake and Output 05/18/20 07:00 Intake Total 480 ml Output Total 1200 ml Balance -720 ml Intake Oral 480 ml Output Urine Total 1100 ml Emesis 100 ml # Voids 1 # Bowel Movements 1 General: Cooperative, No acute distress Abdomen: Soft, Other (ND, incision c/d/i) Labs Laboratory Tests Test 05/16/20 11:18 05/18/20 09:10 Glucose (Fingerstick) 111 mg/dL (70-99) Sodium Level 143 mmol/L (136-145) Potassium Level 4.2 mmol/L (3.5-5.1) Chloride Level 109 mmol/L (98-107) Carbon Dioxide Level 28 mmol/L (21-32) Anion Gap 6 (6-14) Blood Urea Nitrogen 12 mg/dL (8-26) Creatinine 1.2 mg/dL (0.7-1.3) Estimated GFR (Cockcroft-Gault) 59.3 Glucose Level 107 mg/dL (70-99) Calcium Level 8.3 mg/dL (8.5-10.1) Laboratory Tests Test 05/18/20 09:10 Sodium Level 143 mmol/L (136-145) Potassium Level 4.2 mmol/L (3.5-5.1) Chloride Level 109 mmol/L (98-107) Carbon Dioxide Level 28 mmol/L (21-32) Anion Gap 6 (6-14) Blood Urea Nitrogen 12 mg/dL (8-26) Creatinine 1.2 mg/dL (0.7-1.3) Estimated GFR (Cockcroft-Gault) 59.3 Glucose Level 107 mg/dL (70-99) Calcium Level 8.3 mg/dL (8.5-10.1) Problem List Problems Medical Problems: (1) Abdominal pain Status: Acute (2) Sigmoid volvulus Status: Acute (3) Small bowel obstruction Status: Acute Assessment/Plan clears can advance to fulls for dinner if no further emesis 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
--- NOTE | 2020-05-18 09:58 | PDOC ---
Date of Service: DATE: 05/18/20 TIME: 09:55 Subjective: Subjective: "I'm tired of pooping my pants!" Either not hungry or doesn't want to eat because of stooling issue - has had some sips of clears. Denies nausea. Currently without abd pain. Objective: Vital Signs: Vital Signs Date Time Temp Pulse Resp B/P (MAP) Pulse Ox O2 Delivery O2 Flow Rate FiO2 05/18/20 09:13 78 148/77 05/18/20 06:10 97.9 18 94 Nasal Cannula 4.0 97.9 Labs: Laboratory Tests Test 05/18/20 09:10 Sodium Level 143 mmol/L Potassium Level 4.2 mmol/L Chloride Level 109 mmol/L Carbon Dioxide Level 28 mmol/L Anion Gap 6 Blood Urea Nitrogen 12 mg/dL Creatinine 1.2 mg/dL Estimated GFR (Cockcroft-Gault) 59.3 Glucose Level 107 mg/dL Calcium Level 8.3 mg/dL PE: GEN: NAD LUNGS: diminished anteriorly, NC HEART: RRR ABD: soft NEURO/PSYCH: A & O 3, grumpy A/P: Sigmoid volvulus s/p sigmoid resection A Fib, CAD, PVD -- Stooling and taking some liquids. Continue per surgery. Justicifation of Admission Dx: Justifications for Admission: Justification of Admission Dx: Yes (SBO, VOLVULUS, HYPOKALEMIA) SABINA LOOMIS May 18, 2020 09:58
[2020-05-18] MEDS: ANTI-COAG MONITOR BY PHARMACY. MC PRN (10:15)
--- NOTE | 2020-05-18 10:56 | NUR ---
SS following up with discharge planning. SS reviewed pt chart and discussed with pt RN. Pt is currently on room air. COVID19 negative. SS met with pt and rediscussed discharge planning. Pt continuing to decline fdc unit and home healthcare reporting that he "bear not need it." Per RN, FREIGHT BREAKER being discontinued. Pt on clear liquid diet. SS will continue to follow for discharge planning.
--- NOTE | 2020-05-18 14:02 | PDOC ---
PROGRESS NOTES Date of Service: DATE: 05/18/20 TIME: 13:57 Chief Complaint Chief Complaint IMPRESSION Sigmoid volvulus, status post exploratory laparotomy and sigmoid colon resection Wall thickening of the rectum and sigmoid colon is consistent with a component of colitis. Clear liquid diet PAFIB with RVR; remains in AFIB. 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 Appears compensated CAD; recent cath with 2-vessel disease. No lesions needing intervention noted PAD; s/p recent MANAGER MSW of the LSFA. Has CORPORATE SAFETY DIRECTOR of the right SFA. No critical limb ischemia Recommendations from cardiology as follows: Continue Digoxin and metoprolol for rate control Resume Eliquis for stroke prophylaxis; okay per surgical team Secondary prevention; ASA, statin, BB therapy HF optimization with BB, ACEi Outpatient f/u of PAD with consideration of MANAGER MSW of the right SFA CORPORATE SAFETY DIRECTOR Repeat echo on an outpatient basis to re-assess LV systolic function, assess need for AICD Supportive care Follow up in our office with Dr. Olmos as scheduled. Follow GI and general media consultant outside sales recommendations Diet as per media consultant Maintenance fluids Pain management Continue IV antibiotics and supportive care History of Present Illness History of Present Illness 05/12 Patient status post exploratory laparotomy and sigmoid colon resection, 05/12. He states his pain is well controlled. NG tube in place. Denies any fevers. Discussed with RN. 05/13 Patient post ex lap and sigmoid colon resection. Pain well controlled with pain pump. NG tube in place. He tolerated a popsicle today. Denies any fevers. 05/15 Pain remains well controlled. Tolerating popsicle and ice chips. NG tube in place, will removed today. Advance diet slowly. 05/16 No acute events reported overnight, case discussed with nursing staff patient in no acute distress no complaints during my visit. N.p.o. as per attending 05/17 Patient laying in bed in no acute distress. No acute events reported overnight, the patient had 2 bowel movements as per nursing staff. We are waiting for corporate consultant to start diet, patient is wanting to have liquids and is feeling hungry. He is passing gases as well reassurance has been provided 05/18 No acute events reported overnight, case discussed with nursing staff patient in no acute distress no complaints during my visit unable to advance diet does not feel like eating but has been able to tolerate liquids Vitals Vitals Vital Signs Date Time Temp Pulse Resp B/P (MAP) Pulse Ox O2 Delivery O2 Flow Rate FiO2 05/18/20 11:00 98.4 76 16 143/84 (103) 96 Nasal Cannula 2.0 98.4 Physical Exam General: Cooperative, No acute distress Heart: Regular rate, Other (tachy) Lungs: Clear Abdomen: Soft, Other (ND, incision c/d/i) Extremities: No clubbing, No cyanosis Skin: No rashes, No breakdown Labs LABS Laboratory Tests Test 05/18/20 09:10 Sodium Level 143 mmol/L (136-145) Potassium Level 4.2 mmol/L (3.5-5.1) Chloride Level 109 mmol/L (98-107) Carbon Dioxide Level 28 mmol/L (21-32) Anion Gap 6 (6-14) Blood Urea Nitrogen 12 mg/dL (8-26) Creatinine 1.2 mg/dL (0.7-1.3) Estimated GFR (Cockcroft-Gault) 59.3 Glucose Level 107 mg/dL (70-99) Calcium Level 8.3 mg/dL (8.5-10.1) Assessment and Plan Assessmemt and Plan Problems Medical Problems: (1) Abdominal pain Status: Acute (2) Sigmoid volvulus Status: Acute (3) Small bowel obstruction Status: Acute Comment Review of Relevant I have reviewed the following items ben (where applicable) has been applied. Labs Laboratory Tests Test 05/18/20 09:10 Sodium Level 143 mmol/L (136-145) Potassium Level 4.2 mmol/L (3.5-5.1) Chloride Level 109 mmol/L (98-107) Carbon Dioxide Level 28 mmol/L (21-32) Anion Gap 6 (6-14) Blood Urea Nitrogen 12 mg/dL (8-26) Creatinine 1.2 mg/dL (0.7-1.3) Estimated GFR (Cockcroft-Gault) 59.3 Glucose Level 107 mg/dL (70-99) Calcium Level 8.3 mg/dL (8.5-10.1) Laboratory Tests Test 05/18/20 09:10 Sodium Level 143 mmol/L (136-145) Potassium Level 4.2 mmol/L (3.5-5.1) Chloride Level 109 mmol/L (98-107) Carbon Dioxide Level 28 mmol/L (21-32) Anion Gap 6 (6-14) Blood Urea Nitrogen 12 mg/dL (8-26) Creatinine 1.2 mg/dL (0.7-1.3) Estimated GFR (Cockcroft-Gault) 59.3 Glucose Level 107 mg/dL (70-99) Calcium Level 8.3 mg/dL (8.5-10.1) Medications Current Medications Morphine Sulfate (Morphine Sulfate) 2 mg PRN Q15MIN PRN IV/SQ PAIN GREATER THAN 3/10 Last administered on 05/10/20at 18:55; Start 05/10/20 at 18:30; Stop 05/11/20 at 18:29; Status DC Sodium Chloride 1,000 ml @ 1,000 mls/hr Q1H IV Last administered on 05/10/20at 18:54; Start 05/10/20 at 18:16; Stop 05/10/20 at 19:15; Status DC Ondansetron HCl (Zofran) 4 mg 1X ONCE IVP Last administered on 05/10/20at 18:54; Start 05/10/20 at 18:30; Stop 05/10/20 at 18:31; Status DC Iohexol (Omnipaque 300 Mg/ml) 60 ml 1X ONCE IV Last administered on 05/10/20at 19:46; Start 05/10/20 at 20:00; Stop 05/10/20 at 20:01; Status DC Info (CONTRAST GIVEN -- Rx MONITORING) 1 each PRN DAILY PRN MC SEE COMMENTS; Start 05/10/20 at 19:45; Stop 05/12/20 at 19:44; Status DC Magnesium Sulfate 50 ml @ 25 mls/hr 1X ONCE IV Last administered on 05/10/20at 20:00; Start 05/10/20 at 20:00; Stop 05/10/20 at 21:59; Status DC Potassium Chloride/Water 100 ml @ 50 mls/hr 1X ONCE IV Last administered on 05/10/20at 21:21; Start 05/10/20 at 20:00; Stop 05/10/20 at 21:59; Status DC Potassium Chloride (Klor-Con) 40 meq 1X ONCE PO ; Start 05/10/20 at 20:00; Stop 05/10/20 at 20:01; Status DC Piperacillin Sod/ Tazobactam Sod 3.375 gm/Sodium Chloride 50 ml @ 100 mls/hr 1X ONCE IV Last administered on 05/10/20at 21:21; Start 05/10/20 at 21:00; Stop 05/10/20 at 21:29; Status DC Ondansetron HCl (Zofran) 4 mg PRN Q8HRS PRN IV NAUSEA/VOMITING; Start 05/10/20 at 21:00; Stop 05/11/20 at 16:01; Status DC Potassium Chloride/Dextrose/ Sod Cl 1,000 ml @ 125 mls/hr 1X ONCE IV Last administered on 05/10/20at 22:01; Start 05/10/20 at 21:30; Stop 05/11/20 at 05:29; Status DC Lorazepam (Ativan Inj) 1 mg 1X ONCE IVP Last administered on 05/10/20at 22:02; Start 05/10/20 at 22:00; Stop 05/10/20 at 22:01; Status DC Piperacillin Sod/ Tazobactam Sod 3.375 gm/Sodium Chloride 50 ml @ 100 mls/hr Q6HRS IV Last administered on 05/18/20at 12:20; Start 05/11/20 at 06:00 Ondansetron HCl (Zofran) 4 mg PRN Q6HRS PRN IVP NAUSEA/VOMITING Last administered on 05/17/20at 17:36; Start 05/10/20 at 23:00 Morphine Sulfate (Morphine Sulfate) 2 mg PRN Q1HR PRN IV MODERATE-SEVERE PAIN (1ST) Last administered on 05/11/20at 20:01; Start 05/10/20 at 23:00; Stop 05/13/20 at 08:00; Status DC Hydromorphone HCl (Dilaudid) 0.2 mg PRN Q1HR PRN IV MODERATE PAIN; Start 05/10/20 at 23:00; Stop 05/12/20 at 12:12; Status DC Hydromorphone HCl (Dilaudid) 0.4 mg PRN Q1HR PRN IV SEVERE PAIN; Start 05/10/20 at 23:00; Stop 05/12/20 at 12:12; Status DC Heparin Sodium (Porcine) (Heparin Sodium) 5,000 unit Q12HR SQ Last administered on 05/17/20at 08:39; Start 05/11/20 at 09:00; Stop 05/17/20 at 14:11; Status DC Sodium Chloride 1,000 ml @ 100 mls/hr Q10H IV Last administered on 05/14/20at 05:49; Start 05/10/20 at 23:15; Stop 05/14/20 at 07:47; Status DC Influenza Virus Vaccine Quadrival (Fluzone Quad Syringe) 0.5 ml ONCE ONCE VAX IM Last administered on 05/11/20at 11:58; Start 05/11/20 at 09:00; Stop 05/11/20 at 09:01; Status DC Potassium Chloride/Dextrose/ Sod Cl 1,000 ml @ 75 mls/hr [id number] PRN IV . Last administered on 05/11/20at 09:07; Start 05/11/20 at 08:15; Stop 05/14/20 at 07:46; Status DC Sodium Monofluorophosphate (Fleet Adult) 133 ml 1X ONCE TX Last administered on 05/11/20at 08:45; Start 05/11/20 at 08:45; Stop 05/11/20 at 08:46; Status DC Ringer's Solution 1,000 ml @ 75 mls/hr 1X ONCE IV Last administered on 05/11/20at 09:56; Start 05/11/20 at 10:00; Stop 05/11/20 at 23:19; Status DC Propofol (Diprivan) 200 mg STK-MED ONCE IV ; Start 05/11/20 at 10:33; Stop 05/11/20 at 10:33; Status DC Pantoprazole Sodium (PROTONIX VIAL for IV PUSH) 40 mg BIDAC IVP Last administered on 05/18/20at 05:38; Start 05/11/20 at 11:00 Ringer's Solution 1,000 ml @ 30 mls/hr Q24H IV Last administered on 05/12/20at 09:09; Start 05/12/20 at 07:00; Stop 05/12/20 at 18:59; Status DC Lidocaine HCl (Xylocaine-Mpf 1% 2ml Vial) 2 ml PRN 1X PRN ID PRIOR TO IV START; Start 05/12/20 at 07:00; Stop 05/13/20 at 06:59; Status DC Prochlorperazine Edisylate (Compazine) 5 mg PACU PRN PRN IV NAUSEA, MRX1; Start 05/12/20 at 07:00; Stop 05/13/20 at 06:59; Status DC Potassium Chloride/Water 100 ml @ 100 mls/hr Q1H IV Last administered on 05/11/20at 18:45; Start 05/11/20 at 17:15; Stop 05/11/20 at 19:14; Status DC Potassium Chloride/Water 100 ml @ 100 mls/hr Q1H IV Last administered on 05/12/20at 06:17; Start 05/11/20 at 23:30; Stop 05/12/20 at 03:29; Status DC Potassium Chloride/Water 100 ml @ 100 mls/hr Q1H IV Last administered on 05/12/20at 23:18; Start 05/12/20 at 09:00; Stop 05/12/20 at 13:02; Status DC Ketamine HCl (Ketamine) 50 mg STK-MED ONCE .ROUTE ; Start 05/12/20 at 08:39; Stop 05/12/20 at 08:39; Status DC Rocuronium Joes (Zemuron) 100 mg STK-MED ONCE .ROUTE ; Start 05/12/20 at 08:39; Stop 05/12/20 at 08:39; Status DC Fentanyl Citrate (Fentanyl 2ml Vial) 100 mcg STK-MED ONCE .ROUTE ; Start 05/12/20 at 08:39; Stop 05/12/20 at 08:39; Status DC Desflurane (Suprane) 60 ml STK-MED ONCE IH ; Start 05/12/20 at 08:40; Stop 05/12/20 at 08:40; Status DC Propofol (Diprivan) 200 mg STK-MED ONCE IV ; Start 05/12/20 at 08:40; Stop 05/12/20 at 08:40; Status DC Dexamethasone Sodium Phosphate (Decadron) 4 mg STK-MED ONCE .ROUTE ; Start 05/12/20 at 08:40; Stop 05/12/20 at 08:41; Status DC Phenylephrine HCl (Layo-Synephrine Inj) 10 mg STK-MED ONCE .ROUTE ; Start 05/12/20 at 08:41; Stop 05/12/20 at 08:41; Status DC Lidocaine HCl (Lidocaine Pf 2% Vial) 5 ml STK-MED ONCE .ROUTE ; Start 05/12/20 at 08:41; Stop 05/12/20 at 08:41; Status DC Ondansetron HCl (Zofran) 4 mg STK-MED ONCE .ROUTE ; Start 05/12/20 at 08:41; Stop 05/12/20 at 08:41; Status DC Famotidine (Pepcid Vial) 20 mg STK-MED ONCE .ROUTE ; Start 05/12/20 at 08:41; Stop 05/12/20 at 08:41; Status DC Fentanyl Citrate (Fentanyl 2ml Vial) 100 mcg STK-MED ONCE .ROUTE ; Start 05/12/20 at 09:00; Stop 05/12/20 at 09:00; Status DC Fentanyl Citrate (Fentanyl 2ml Vial) 100 mcg 1X ONCE IVP Last administered on 05/12/20at 09:12; Start 05/12/20 at 09:15; Stop 05/12/20 at 09:16; Status DC Succinylcholine Chloride (Anectine) 200 mg STK-MED ONCE .ROUTE ; Start 05/12/20 at 09:41; Stop 05/12/20 at 09:42; Status DC Sugammadex Sodium (Bridion) 200 mg 1X ONCE IVP ; Start 05/12/20 at 10:15; Stop 05/12/20 at 10:16; Status DC Remifentanil HCl (Ultiva) 1 mg STK-MED ONCE IV ; Start 05/12/20 at 10:14; Stop 05/12/20 at 10:15; Status DC Ropivacaine (Naropin 0.5%) 20 ml STK-MED ONCE .ROUTE ; Start 05/12/20 at 11:38; Stop 05/12/20 at 11:38; Status DC Naloxone HCl (Narcan) 0.4 mg PRN Q2MIN PRN IV SEE INSTRUCTIONS; Start 05/12/20 at 12:15 Sodium Chloride 1,000 ml @ 25 mls/hr Q24H IV Last administered on 05/16/20at 12:24; Start 05/12/20 at 12:08; Stop 05/18/20 at 12:11; Status DC Hydromorphone HCl 30 ml @ 0 mls/hr CONT PRN PRN IV PER PROTOCOL Last administered on 05/17/20at 13:13; Start 05/12/20 at 12:15; Stop 05/18/20 at 09:40; Status DC Ondansetron HCl (Zofran) 4 mg PRN Q6HRS PRN IV NAUSEA/VOMITING; Start 05/12/20 at 13:00; Stop 05/13/20 at 08:00; Status DC Fentanyl Citrate (Fentanyl 2ml Vial) 25 mcg PRN Q5MIN PRN IV MILD PAIN 1-3; Start 05/12/20 at 13:00; Stop 05/13/20 at 08:00; Status DC Fentanyl Citrate (Fentanyl 2ml Vial) 50 mcg PRN Q5MIN PRN IV MODERATE TO SEVERE PAIN Last administered on 05/12/20at 12:59; Start 05/12/20 at 13:00; Stop 05/13/20 at 08:00; Status DC Morphine Sulfate (Morphine Sulfate) 1 mg PRN Q10MIN PRN IV SEVERE PAIN 7-10; Start 05/12/20 at 13:00; Stop 05/13/20 at 08:00; Status DC Ringer's Solution 1,000 ml @ 30 mls/hr Q24H IV ; Start 05/12/20 at 12:54; Stop 05/13/20 at 00:53; Status DC Lidocaine HCl (Xylocaine-Mpf 1% 2ml Vial) 2 ml PRN 1X PRN ID PRIOR TO IV START; Start 05/12/20 at 13:00; Stop 05/13/20 at 12:59; Status DC Hydromorphone HCl (Dilaudid) 0.5 mg PRN Q10MIN PRN IV SEV PAIN, Second choice; Start 05/12/20 at 13:00; Stop 05/13/20 at 08:00; Status DC Prochlorperazine Edisylate (Compazine) 5 mg PACU PRN PRN IV NAUSEA, MRX1; Start 05/12/20 at 13:00; Stop 05/13/20 at 08:00; Status DC Potassium Chloride/Dextrose/ Sod Cl 1,000 ml @ 75 mls/hr [id number] IV Last administered on 05/17/20at 21:19; Start 05/14/20 at 08:00 Digoxin (Lanoxin) 125 mcg DAILY PO Last administered on 05/18/20at 09:13; Start 05/16/20 at 09:00 Metoprolol Tartrate (Lopressor) 50 mg BID PO Last administered on 05/16/20at 21:02; Start 05/15/20 at 21:00; Stop 05/16/20 at 22:00; Status DC Metoprolol Tartrate (Lopressor Vial) 5 mg 1X ONCE IVP Last administered on 05/15/20at 06:07; Start 05/15/20 at 06:00; Stop 05/15/20 at 06:01; Status DC Digoxin (Lanoxin) 125 mcg 1X ONCE IV Last administered on 05/15/20at 06:27; Start 05/15/20 at 06:00; Stop 05/15/20 at 06:01; Status DC Digoxin (Lanoxin) 125 mcg 1X ONCE PO ; Start 05/15/20 at 06:00; Stop 05/15/20 at 06:01; Status DC Metoprolol Tartrate (Lopressor) 50 mg 1X ONCE PO Last administered on 05/15/20at 06:08; Start 05/15/20 at 06:00; Stop 05/15/20 at 06:01; Status DC Digoxin (Lanoxin) 250 mcg 1X ONCE IV Last administered on 05/15/20at 11:40; Start 05/15/20 at 11:30; Stop 05/15/20 at 11:31; Status DC Aspirin (Ecotrin) 81 mg DAILYWBKFT PO Last administered on 05/18/20at 09:12; Start 05/16/20 at 08:00 Atorvastatin Calcium (Lipitor) 40 mg QHS PO Last administered on 05/17/20at 21:18; Start 05/15/20 at 21:00 Metoprolol Succinate (Toprol Xl) 100 mg DAILY PO Last administered on 05/18/20at 09:12; Start 05/17/20 at 09:00 Lisinopril (Prinivil) 5 mg DAILY PO Last administered on 05/18/20at 09:13; Start 05/16/20 at 09:30 Apixaban (Eliquis) 5 mg BID PO Last administered on 05/18/20at 09:12; Start 05/17/20 at 21:00 Info (Anti-Coagulation Monitoring By Pharmacy) 1 each PRN DAILY PRN MC SEE COMMENTS Last administered on 9/24/20at 10:15; Start 05/17/20 at 15:00 Ondansetron HCl (Zofran) 4 mg PRN Q6HRS PRN IVP NAUSEA/VOMITING; Start 05/17/20 at 16:45; Stop 05/18/20 at 10:12; Status DC Acetaminophen/ Hydrocodone Bitart (Lortab 5/325) 1 tab PRN Q4HRS PRN PO PAIN; Start 05/18/20 at 09:45 Active Scripts Active Polyethylene Glycol 3350 17 Gm Powd.pack 17 Gm PO PRN DAILY PRN 28 Days Bisacodyl 5 Mg Tablet. 5 Mg PO PRN DAILY PRN 14 Days Acetaminophen 500 Mg Tablet 500 Mg PO PRN Q6HRS PRN 30 Days Aspirin Ec (Aspirin) 81 Mg Tablet. 81 Mg PO DAILYWBKFT 30 Days Digoxin 125 Mcg Tablet 125 Mcg PO DAILY 30 Days Eliquis (Apixaban) 5 Mg Tablet 5 Mg PO BID 30 Days Duoneb 0.5-3(2.5) Mg/3 Ml (Albuterol/Ipratropium) 3 Ml Ampul.neb 3 Ml NEB RTQID 30 Days Vitamin C (Ascorbic Acid) 500 Mg Tablet 500 Mg PO DAILY 30 Days Thera-M Tablet (Multivits,Ca,Minerals/Iron/Fa) 1 Each Tablet 1 Tab PO DAILY 30 Days Pantoprazole Sodium (Pantoprazole Sodium) 40 Mg Tablet. 40 Mg PO DAILYAC 30 Days Klor-Con M20 (Potassium Chloride) 20 Meq Tab.er.prt 20 Meq PO DAILYWBKFT 30 Days Percocet 5-325 Mg Tablet (Oxycodone/Acetaminophen) 1 Each Tablet 1 Tab PO PRN Q6HRS PRN 6 Days Reported Symbicort 80-4.5 Mcg Inhaler (Budesonide/Formoterol Fumarate) 10.2 Gm Hfa.aer.ad 2 Puff IH BID Metoprolol Tartrate 50 Mg Tablet 1 Tab PO BID Vitals/I & O Vital Sign - Last 24 Hours 05/17/20 05/17/20 05/17/20 05/17/20 14:11 14:22 19:37 20:00 Temp 97.5 97.9 97.5 97.9 Pulse 96 95 Resp 22 20 B/P (MAP) 143/74 (97) 150/82 (104) Pulse Ox 99 99 95 O2 Delivery Room Air Room Air Room Air Room Air O2 Flow Rate 2.0 05/17/20 05/18/20 05/18/20 05/18/20 22:57 02:16 06:10 08:00 Temp 98.4 98.1 97.9 98.4 98.1 97.9 Pulse 91 76 68 Resp 18 18 18 B/P (MAP) 135/84 (101) 122/56 (78) 132/67 (88) Pulse Ox 95 93 94 O2 Delivery Room Air Room Air Nasal Cannula Nasal Cannula O2 Flow Rate 4.0 2.0 05/18/20 05/18/20 05/18/20 05/18/20 09:11 09:12 09:13 09:13 Pulse 78 78 78 78 B/P (MAP) 148/77 (100) 148/77 148/77 148/77 05/18/20 11:00 Temp 98.4 98.4 Pulse 76 Resp 16 B/P (MAP) 143/84 (103) Pulse Ox 96 O2 Delivery Nasal Cannula O2 Flow Rate 2.0 Intake and Output 05/17/20 05/17/20 05/18/20 15:00 23:00 07:00 Intake Total 480 ml 0 ml Output Total 400 ml 400 ml 400 ml Balance 80 ml -400 ml -400 ml Nutrition Consultation Dietary Evaluation: Recommendations by RD: Dietary education by RD, Increase Calorie Intake, Protein supplementation Comments: REC advance diet as able within next 24 - 48 hrs, goal diet cardiac w/strawberry Ensure at lunch per pt request REC Ensure clear (apple) w/lunch once pt advanced to clear liquids If unable to advance diet within 24 - 48 hrs, recommend consideration of PPN for short-term nutrition support needs Expected Outcomes/Goals: diet advancement Malnutrition Findings: Food and Nutrition Intake (Sev: <50% est energy req 5days Weight Status: Appropriate Justicifation of Admission Dx: Justifications for Admission: Justification of Admission Dx: Yes (SBO, VOLVULUS, HYPOKALEMIA) ASHLEY GARDNER MD May 18, 2020 14:01
--- NOTE | 2020-05-18 16:30 | NUR ---
Have reviewed and agree with documentation completed by policy intern and have made changes as needed
[2020-05-18] MEDS: POTASSIUM CL 40MEQ D5-0.45NACL 1,000 ML IV SCH (17:25)
--- NOTE | 2020-05-18 19:40 | NUR ---
Pt up in chair assessment completed vss poc explained pt denied pain but c/o iv site ,iv site without redness, and flush ok will resume care and continue to monitor pt. Call light in reach chair alarm set.
[2020-05-18] MEDS: ATORVASTATIN CALCIUM 40 MG TABLET. PO SCH (20:40)
[2020-05-18] MEDS: HYDROcodone/APAP 5/325MG 1 TAB TABLET PO PRN (20:41)
[2020-05-19 03:03] VITALS: BP 141/81
[2020-05-19] MEDS: PIPERACILLIN/TAZOBACTAM 3.375 GM in IV NORMAL SALINE 50ML 50 ML IV SCH ×4 (06:12→23:49)
[2020-05-19] MEDS: PANTOPRAZOLE IV PUSH 40 MG VIAL. IVP SCH ×2 (06:12→17:29)
[2020-05-19] MEDS: HYDROcodone/APAP 5/325MG 1 TAB TABLET PO PRN ×3 (06:12→21:29)
[2020-05-19 07:00] VITALS: BP 147/75
[2020-05-19] MEDS: METOPROLOL SUCC 24HR ER 100 MG TAB.ER.24H. PO SCH (08:31)
[2020-05-19] MEDS: APIXABAN 5 MG TABLET. PO SCH ×2 (08:31→20:45)
[2020-05-19] MEDS: ASPIRIN ENTERIC COATED 81 MG TABLET.DR. PO SCH (08:32)
[2020-05-19] MEDS: DIGOXIN 125 MCG TABLET. PO SCH (08:32)
[2020-05-19] MEDS: LISINOPRIL 5 MG TABLET. PO SCH (08:32)
[2020-05-19 10:00] VITALS: BP 132/72
--- NOTE | 2020-05-19 10:55 | PDOC ---
KAYLI HOWARD GENERAL HOUSE WORKER 05/19/20 1054: SURGICAL PROGRESS NOTE DATE: 05/19/20 TIME: 10:53 Subjective still having stools no n/v--did have Full liquids for breakfast--but was a little hard on stomach Vital Signs Vital Signs Date Time Temp Pulse Resp B/P (MAP) Pulse Ox O2 Delivery O2 Flow Rate FiO2 05/19/20 08:32 67 147/75 05/19/20 07:47 Nasal Cannula 2.0 05/19/20 07:12 18 05/19/20 07:00 97.7 95 97.7 I&O Intake and Output 05/19/20 07:00 Intake Total 700 ml Output Total 1300 ml Balance -600 ml Intake Oral 700 ml Output Urine Total 1300 ml # Bowel Movements 5 General: Alert, Cooperative Abdomen: Soft, Other (mildly distended, incision c/d/i, no erythema ) Labs Laboratory Tests Test 05/18/20 09:10 Sodium Level 143 mmol/L (136-145) Potassium Level 4.2 mmol/L (3.5-5.1) Chloride Level 109 mmol/L (98-107) Carbon Dioxide Level 28 mmol/L (21-32) Anion Gap 6 (6-14) Blood Urea Nitrogen 12 mg/dL (8-26) Creatinine 1.2 mg/dL (0.7-1.3) Estimated GFR (Cockcroft-Gault) 59.3 Glucose Level 107 mg/dL (70-99) Calcium Level 8.3 mg/dL (8.5-10.1) Problem List Problems Medical Problems: (1) Abdominal pain Status: Acute (2) Sigmoid volvulus Status: Acute (3) Small bowel obstruction Status: Acute Assessment/Plan await improved bowel function--slow on diet Justicifation of Admission Dx: Justifications for Admission: Justification of Admission Dx: Yes (SBO, VOLVULUS, HYPOKALEMIA) SHELIA CASTILLO MD 05/19/20 1129: SURGICAL PROGRESS NOTE Assessment/Plan Agree with above KAYLI HOWARD APRN May 19, 2020 10:54 SHELIA CASTILLO MD May 19, 2020 11:29
--- NOTE | 2020-05-19 12:04 | PDOC ---
Date of Service: DATE: 05/19/20 TIME: 12:02 Subjective: Subjective: Hears water running in his abdomen. No pain. Doesn't think has stooled today. Objective: Objective: Other notes say stooling - back down to clears from full liquids. Vital Signs: Vital Signs Date Time Temp Pulse Resp B/P (MAP) Pulse Ox O2 Delivery O2 Flow Rate FiO2 05/19/20 10:00 97.6 66 20 132/72 (92) 98 Nasal Cannula 2.0 97.6 PE: GEN: NAD LUNGS: diminished anteriorly HEART: RRR ABD: soft, quiet BS NEURO/PSYCH: A & O 3, flat A/P: Sigmoid volvulus s/p sigmoid resection -- Continue per surgery. Justicifation of Admission Dx: Justifications for Admission: Justification of Admission Dx: Yes (SBO, VOLVULUS, HYPOKALEMIA) SABINA LOOMIS May 19, 2020 12:04
[2020-05-19] MEDS: POTASSIUM CL 40MEQ D5-0.45NACL 1,000 ML IV SCH ×3 (12:05→23:49)
--- NOTE | 2020-05-19 12:32 | NUR ---
SS following up with discharge planning. SS reviewed pt chart and discussed with pt RN. Pt is currently requiring oxygen. Pt on IV Zosyn. Clear liquid diet. Pt continuing to declined assisted unit and home healthcare. SS will continue to follow for discharge planning.
--- NOTE | 2020-05-19 13:43 | PDOC ---
PROGRESS NOTES Date of Service: DATE: 05/19/20 TIME: 13:40 Chief Complaint Chief Complaint IMPRESSION Sigmoid volvulus, status post exploratory laparotomy and sigmoid colon resection Wall thickening of the rectum and sigmoid colon is consistent with a component of colitis. Clear liquid diet PAFIB with RVR; remains in AFIB. 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 Appears compensated CAD; recent cath with 2-vessel disease. 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 Has TELEPHONE QUOTATION CLERK of the right SFA. No critical limb ischemia Recommendations from cardiology as follows: Continue Digoxin and metoprolol for rate control Resume Eliquis for stroke prophylaxis; okay per surgical team Secondary prevention; ASA, statin, BB therapy HF optimization with BB, ACEi Outpatient f/u of PAD with consideration of MINERALOGY TEACHER of the right SFA TELEPHONE QUOTATION CLERK Repeat echo on an outpatient basis to re-assess LV systolic function, assess need for AICD Supportive care Follow up in our office with Dr. Olmos as scheduled. Follow GI and general human resources consultant recommendations, awaiting for better bowel function from the surgical consultation standpoint of view. Hopefully discharge soon Diet as per human resources consultant Maintenance fluids Pain management Continue IV antibiotics and supportive care History of Present Illness History of Present Illness 05/12 Patient status post exploratory laparotomy and sigmoid colon resection, 05/12. He states his pain is well controlled. NG tube in place. Denies any fevers. Discussed with RN. 05/13 Patient post ex lap and sigmoid colon resection. Pain well controlled with pain pump. NG tube in place. He tolerated a popsicle today. Denies any fevers. 05/15 Pain remains well controlled. Tolerating popsicle and ice chips. NG tube in place, will removed today. Advance diet slowly. 05/16 No acute events reported overnight, case discussed with nursing staff patient in no acute distress no complaints during my visit. N.p.o. as per attending 05/17 Patient laying in bed in no acute distress. No acute events reported overnight, the patient had 2 bowel movements as per nursing staff. We are waiting for regional vice president surgical sales to start diet, patient is wanting to have liquids and is feeling hungry. He is passing gases as well reassurance has been provided 05/18 No acute events reported overnight, case discussed with nursing staff patient in no acute distress no complaints during my visit unable to advance diet does not feel like eating but has been able to tolerate liquids 05/19 Patient has been tolerating liquids but he relates that it hard time today he feels like he is getting quite full very quickly. No acute events reported overnight reassurance has been provided Vitals Vitals Vital Signs Date Time Temp Pulse Resp B/P (MAP) Pulse Ox O2 Delivery O2 Flow Rate FiO2 05/19/20 10:00 97.6 66 20 132/72 (92) 98 Nasal Cannula 2.0 97.6 Physical Exam General: Alert, Cooperative Heart: Regular rate, Other (tachy) Lungs: Clear Abdomen: Soft, Other (mildly distended, incision c/d/i, no erythema ) Extremities: No clubbing, No cyanosis Skin: No rashes, No breakdown Assessment and Plan Assessmemt and Plan Problems Medical Problems: (1) Abdominal pain Status: Acute (2) Sigmoid volvulus Status: Acute (3) Small bowel obstruction Status: Acute Comment Review of Relevant I have reviewed the following items ben (where applicable) has been applied. Labs Laboratory Tests Test 05/18/20 09:10 Sodium Level 143 mmol/L (136-145) Potassium Level 4.2 mmol/L (3.5-5.1) Chloride Level 109 mmol/L (98-107) Carbon Dioxide Level 28 mmol/L (21-32) Anion Gap 6 (6-14) Blood Urea Nitrogen 12 mg/dL (8-26) Creatinine 1.2 mg/dL (0.7-1.3) Estimated GFR (Cockcroft-Gault) 59.3 Glucose Level 107 mg/dL (70-99) Calcium Level 8.3 mg/dL (8.5-10.1) Medications Current Medications Morphine Sulfate (Morphine Sulfate) 2 mg PRN Q15MIN PRN IV/SQ PAIN GREATER THAN 3/10 Last administered on 05/10/20at 18:55; Start 05/10/20 at 18:30; Stop 05/11/20 at 18:29; Status DC Sodium Chloride 1,000 ml @ 1,000 mls/hr Q1H IV Last administered on 05/10/20at 18:54; Start 05/10/20 at 18:16; Stop 05/10/20 at 19:15; Status DC Ondansetron HCl (Zofran) 4 mg 1X ONCE IVP Last administered on 05/10/20at 18:54; Start 05/10/20 at 18:30; Stop 05/10/20 at 18:31; Status DC Iohexol (Omnipaque 300 Mg/ml) 60 ml 1X ONCE IV Last administered on 05/10/20at 19:46; Start 05/10/20 at 20:00; Stop 05/10/20 at 20:01; Status DC Info (CONTRAST GIVEN -- Rx MONITORING) 1 each PRN DAILY PRN MC SEE COMMENTS; Start 05/10/20 at 19:45; Stop 05/12/20 at 19:44; Status DC Magnesium Sulfate 50 ml @ 25 mls/hr 1X ONCE IV Last administered on 05/10/20at 20:00; Start 05/10/20 at 20:00; Stop 05/10/20 at 21:59; Status DC Potassium Chloride/Water 100 ml @ 50 mls/hr 1X ONCE IV Last administered on 05/10/20at 21:21; Start 05/10/20 at 20:00; Stop 05/10/20 at 21:59; Status DC Potassium Chloride (Klor-Con) 40 meq 1X ONCE PO ; Start 05/10/20 at 20:00; Stop 05/10/20 at 20:01; Status DC Piperacillin Sod/ Tazobactam Sod 3.375 gm/Sodium Chloride 50 ml @ 100 mls/hr 1X ONCE IV Last administered on 05/10/20at 21:21; Start 05/10/20 at 21:00; Stop 05/10/20 at 21:29; Status DC Ondansetron HCl (Zofran) 4 mg PRN Q8HRS PRN IV NAUSEA/VOMITING; Start 05/10/20 at 21:00; Stop 05/11/20 at 16:01; Status DC Potassium Chloride/Dextrose/ Sod Cl 1,000 ml @ 125 mls/hr 1X ONCE IV Last administered on 05/10/20at 22:01; Start 05/10/20 at 21:30; Stop 05/11/20 at 05:29; Status DC Lorazepam (Ativan Inj) 1 mg 1X ONCE IVP Last administered on 05/10/20at 22:02; Start 05/10/20 at 22:00; Stop 05/10/20 at 22:01; Status DC Piperacillin Sod/ Tazobactam Sod 3.375 gm/Sodium Chloride 50 ml @ 100 mls/hr Q6HRS IV Last administered on 05/19/20at 12:05; Start 05/11/20 at 06:00 Ondansetron HCl (Zofran) 4 mg PRN Q6HRS PRN IVP NAUSEA/VOMITING Last administered on 05/17/20at 17:36; Start 05/10/20 at 23:00 Morphine Sulfate (Morphine Sulfate) 2 mg PRN Q1HR PRN IV MODERATE-SEVERE PAIN (1ST) Last administered on 05/11/20at 20:01; Start 05/10/20 at 23:00; Stop 05/13/20 at 08:00; Status DC Hydromorphone HCl (Dilaudid) 0.2 mg PRN Q1HR PRN IV MODERATE PAIN; Start 05/10/20 at 23:00; Stop 05/12/20 at 12:12; Status DC Hydromorphone HCl (Dilaudid) 0.4 mg PRN Q1HR PRN IV SEVERE PAIN; Start 05/10/20 at 23:00; Stop 05/12/20 at 12:12; Status DC Heparin Sodium (Porcine) (Heparin Sodium) 5,000 unit Q12HR SQ Last administered on 05/17/20at 08:39; Start 05/11/20 at 09:00; Stop 05/17/20 at 14:11; Status DC Sodium Chloride 1,000 ml @ 100 mls/hr Q10H IV Last administered on 05/14/20at 05:49; Start 05/10/20 at 23:15; Stop 05/14/20 at 07:47; Status DC Influenza Virus Vaccine Quadrival (Fluzone Quad Syringe) 0.5 ml ONCE ONCE VAX IM Last administered on 05/11/20at 11:58; Start 05/11/20 at 09:00; Stop 05/11/20 at 09:01; Status DC Potassium Chloride/Dextrose/ Sod Cl 1,000 ml @ 75 mls/hr [id number] PRN IV . Last administered on 05/11/20at 09:07; Start 05/11/20 at 08:15; Stop 05/14/20 at 07:46; Status DC Sodium Monofluorophosphate (Fleet Adult) 133 ml 1X ONCE OK Last administered on 05/11/20at 08:45; Start 05/11/20 at 08:45; Stop 05/11/20 at 08:46; Status DC Ringer's Solution 1,000 ml @ 75 mls/hr 1X ONCE IV Last administered on 05/11/20at 09:56; Start 05/11/20 at 10:00; Stop 05/11/20 at 23:19; Status DC Propofol (Diprivan) 200 mg STK-MED ONCE IV ; Start 05/11/20 at 10:33; Stop 05/11/20 at 10:33; Status DC Pantoprazole Sodium (PROTONIX VIAL for IV PUSH) 40 mg BIDAC IVP Last administered on 05/19/20at 06:12; Start 05/11/20 at 11:00 Ringer's Solution 1,000 ml @ 30 mls/hr Q24H IV Last administered on 05/12/20at 09:09; Start 05/12/20 at 07:00; Stop 05/12/20 at 18:59; Status DC Lidocaine HCl (Xylocaine-Mpf 1% 2ml Vial) 2 ml PRN 1X PRN ID PRIOR TO IV START; Start 05/12/20 at 07:00; Stop 05/13/20 at 06:59; Status DC Prochlorperazine Edisylate (Compazine) 5 mg PACU PRN PRN IV NAUSEA, MRX1; Start 05/12/20 at 07:00; Stop 05/13/20 at 06:59; Status DC Potassium Chloride/Water 100 ml @ 100 mls/hr Q1H IV Last administered on 05/11/20at 18:45; Start 05/11/20 at 17:15; Stop 05/11/20 at 19:14; Status DC Potassium Chloride/Water 100 ml @ 100 mls/hr Q1H IV Last administered on 05/12/20at 06:17; Start 05/11/20 at 23:30; Stop 05/12/20 at 03:29; Status DC Potassium Chloride/Water 100 ml @ 100 mls/hr Q1H IV Last administered on 05/12/20at 23:18; Start 05/12/20 at 09:00; Stop 05/12/20 at 13:02; Status DC Ketamine HCl (Ketamine) 50 mg STK-MED ONCE .ROUTE ; Start 05/12/20 at 08:39; Stop 05/12/20 at 08:39; Status DC Rocuronium [place] (Zemuron) 100 mg STK-MED ONCE .ROUTE ; Start 05/12/20 at 08:39; Stop 05/12/20 at 08:39; Status DC Fentanyl Citrate (Fentanyl 2ml Vial) 100 mcg STK-MED ONCE .ROUTE ; Start 05/12/20 at 08:39; Stop 05/12/20 at 08:39; Status DC Desflurane (Suprane) 60 ml STK-MED ONCE IH ; Start 05/12/20 at 08:40; Stop 05/12/20 at 08:40; Status DC Propofol (Diprivan) 200 mg STK-MED ONCE IV ; Start 05/12/20 at 08:40; Stop 05/12/20 at 08:40; Status DC Dexamethasone Sodium Phosphate (Decadron) 4 mg STK-MED ONCE .ROUTE ; Start 05/12/20 at 08:40; Stop 05/12/20 at 08:41; Status DC Phenylephrine HCl (Layo-Synephrine Inj) 10 mg STK-MED ONCE .ROUTE ; Start 05/12/20 at 08:41; Stop 05/12/20 at 08:41; Status DC Lidocaine HCl (Lidocaine Pf 2% Vial) 5 ml STK-MED ONCE .ROUTE ; Start 05/12/20 at 08:41; Stop 05/12/20 at 08:41; Status DC Ondansetron HCl (Zofran) 4 mg STK-MED ONCE .ROUTE ; Start 05/12/20 at 08:41; Stop 05/12/20 at 08:41; Status DC Famotidine (Pepcid Vial) 20 mg STK-MED ONCE .ROUTE ; Start 05/12/20 at 08:41; Stop 05/12/20 at 08:41; Status DC Fentanyl Citrate (Fentanyl 2ml Vial) 100 mcg STK-MED ONCE .ROUTE ; Start 05/12/20 at 09:00; Stop 05/12/20 at 09:00; Status DC Fentanyl Citrate (Fentanyl 2ml Vial) 100 mcg 1X ONCE IVP Last administered on 05/12/20at 09:12; Start 05/12/20 at 09:15; Stop 05/12/20 at 09:16; Status DC Succinylcholine Chloride (Anectine) 200 mg STK-MED ONCE .ROUTE ; Start 05/12/20 at 09:41; Stop 05/12/20 at 09:42; Status DC Sugammadex Sodium (Bridion) 200 mg 1X ONCE IVP ; Start 05/12/20 at 10:15; Stop 05/12/20 at 10:16; Status DC Remifentanil HCl (Ultiva) 1 mg STK-MED ONCE IV ; Start 05/12/20 at 10:14; Stop 05/12/20 at 10:15; Status DC Ropivacaine (Naropin 0.5%) 20 ml STK-MED ONCE .ROUTE ; Start 05/12/20 at 11:38; Stop 05/12/20 at 11:38; Status DC Naloxone HCl (Narcan) 0.4 mg PRN Q2MIN PRN IV SEE INSTRUCTIONS; Start 05/12/20 at 12:15 Sodium Chloride 1,000 ml @ 25 mls/hr Q24H IV Last administered on 05/16/20at 12:24; Start 05/12/20 at 12:08; Stop 05/18/20 at 12:11; Status DC Hydromorphone HCl 30 ml @ 0 mls/hr CONT PRN PRN IV PER PROTOCOL Last administered on 05/17/20at 13:13; Start 05/12/20 at 12:15; Stop 05/18/20 at 09:40; Status DC Ondansetron HCl (Zofran) 4 mg PRN Q6HRS PRN IV NAUSEA/VOMITING; Start 05/12/20 at 13:00; Stop 05/13/20 at 08:00; Status DC Fentanyl Citrate (Fentanyl 2ml Vial) 25 mcg PRN Q5MIN PRN IV MILD PAIN 1-3; Start 05/12/20 at 13:00; Stop 05/13/20 at 08:00; Status DC Fentanyl Citrate (Fentanyl 2ml Vial) 50 mcg PRN Q5MIN PRN IV MODERATE TO SEVERE PAIN Last administered on 05/12/20at 12:59; Start 05/12/20 at 13:00; Stop 05/13/20 at 08:00; Status DC Morphine Sulfate (Morphine Sulfate) 1 mg PRN Q10MIN PRN IV SEVERE PAIN 7-10; Start 05/12/20 at 13:00; Stop 05/13/20 at 08:00; Status DC Ringer's Solution 1,000 ml @ 30 mls/hr Q24H IV ; Start 05/12/20 at 12:54; Stop 05/13/20 at 00:53; Status DC Lidocaine HCl (Xylocaine-Mpf 1% 2ml Vial) 2 ml PRN 1X PRN ID PRIOR TO IV START; Start 05/12/20 at 13:00; Stop 05/13/20 at 12:59; Status DC Hydromorphone HCl (Dilaudid) 0.5 mg PRN Q10MIN PRN IV SEV PAIN, Second choice; Start 05/12/20 at 13:00; Stop 05/13/20 at 08:00; Status DC Prochlorperazine Edisylate (Compazine) 5 mg PACU PRN PRN IV NAUSEA, MRX1; Start 05/12/20 at 13:00; Stop 05/13/20 at 08:00; Status DC Potassium Chloride/Dextrose/ Sod Cl 1,000 ml @ 75 mls/hr [id number] IV Last administered on 05/19/20at 12:10; Start 05/14/20 at 08:00 Digoxin (Lanoxin) 125 mcg DAILY PO Last administered on 05/19/20at 08:32; Start 05/16/20 at 09:00 Metoprolol Tartrate (Lopressor) 50 mg BID PO Last administered on 05/16/20at 21:02; Start 05/15/20 at 21:00; Stop 05/16/20 at 22:00; Status DC Metoprolol Tartrate (Lopressor Vial) 5 mg 1X ONCE IVP Last administered on 05/15/20at 06:07; Start 05/15/20 at 06:00; Stop 05/15/20 at 06:01; Status DC Digoxin (Lanoxin) 125 mcg 1X ONCE IV Last administered on 05/15/20at 06:27; Start 05/15/20 at 06:00; Stop 05/15/20 at 06:01; Status DC Digoxin (Lanoxin) 125 mcg 1X ONCE PO ; Start 05/15/20 at 06:00; Stop 05/15/20 at 06:01; Status DC Metoprolol Tartrate (Lopressor) 50 mg 1X ONCE PO Last administered on 05/15/20at 06:08; Start 05/15/20 at 06:00; Stop 05/15/20 at 06:01; Status DC Digoxin (Lanoxin) 250 mcg 1X ONCE IV Last administered on 05/15/20at 11:40; Start 05/15/20 at 11:30; Stop 05/15/20 at 11:31; Status DC Aspirin (Ecotrin) 81 mg [id number] PO Last administered on 05/19/20 08:32; Start 05/16/20 at 08:00 Atorvastatin Calcium (Lipitor) 40 mg QHS PO Last administered on 05/18/20at 20:40; Start 05/15/20 at 21:00 Metoprolol Succinate (Toprol Xl) 100 mg DAILY PO Last administered on 05/19/20 08:31; Start 05/17/20 at 09:00 Lisinopril (Prinivil) 5 mg DAILY PO Last administered on 05/19/20 08:32; Start 05/16/20 at 09:30 Apixaban (Eliquis) 5 mg BID PO Last administered on 05/19/20at 08:31; Start 05/17/20 at 21:00 Info (Anti-Coagulation Monitoring By Pharmacy) 1 each PRN DAILY PRN MC SEE COMMENTS Last administered on 05/18/20at 10:15; Start 05/17/20 at 15:00 Ondansetron HCl (Zofran) 4 mg PRN Q6HRS PRN IVP NAUSEA/VOMITING; Start 05/17/20 at 16:45; Stop 05/18/20 at 10:12; Status DC Acetaminophen/ Hydrocodone Bitart (Lortab 5/325) 1 tab PRN Q4HRS PRN PO PAIN Last administered on 05/19/20at 06:12; Start 05/18/20 at 09:45 Active Scripts Active Polyethylene Glycol 3350 17 Gm Powd.pack 17 Gm PO PRN DAILY PRN 28 Days Bisacodyl 5 Mg Tablet. 5 Mg PO PRN DAILY PRN 14 Days Acetaminophen 500 Mg Tablet 500 Mg PO PRN Q6HRS PRN 30 Days Aspirin Ec (Aspirin) 81 Mg Tablet. 81 Mg PO DAILYWBKFT 30 Days Digoxin 125 Mcg Tablet 125 Mcg PO DAILY 30 Days Eliquis (Apixaban) 5 Mg Tablet 5 Mg PO BID 30 Days Duoneb 0.5-3(2.5) Mg/3 Ml (Albuterol/Ipratropium) 3 Ml Ampul.neb 3 Ml NEB RTQID 30 Days Vitamin C (Ascorbic Acid) 500 Mg Tablet 500 Mg PO DAILY 30 Days Thera-M Tablet (Multivits,Ca,Minerals/Iron/Fa) 1 Each Tablet 1 Tab PO DAILY 30 Days Pantoprazole Sodium (Pantoprazole Sodium) 40 Mg Tablet.dr 40 Mg PO DAILYAC 30 Days Klor-Con M20 (Potassium Chloride) 20 Meq Tab.er.prt 20 Meq PO DAILYWBKFT 30 Days Percocet 5-325 Mg Tablet (Oxycodone/Acetaminophen) 1 Each Tablet 1 Tab PO PRN Q6HRS PRN 6 Days Reported Symbicort 80-4.5 Mcg Inhaler (Budesonide/Formoterol Fumarate) 10.2 Gm Hfa.aer.ad 2 Puff IH BID Metoprolol Tartrate 50 Mg Tablet 1 Tab PO BID Vitals/I & O Vital Sign - Last 24 Hours 05/18/20 05/18/20 05/18/20 05/18/20 15:00 19:23 19:33 20:41 Temp 97.9 97.7 97.9 97.7 Pulse 69 Resp 14 20 18 B/P (MAP) 141/76 (97) 102/40 (60) Pulse Ox 97 98 96 O2 Delivery Room Air Nasal Cannula Nasal Cannula Nasal Cannula O2 Flow Rate 2.0 2.0 2.0 05/18/20 05/18/20 05/19/20 05/19/20 21:41 22:11 03:03 06:12 Temp 98.1 97.6 98.1 97.6 Pulse 67 90 Resp 18 18 18 18 B/P (MAP) 127/69 (88) 141/81 (101) Pulse Ox 95 95 97 97 O2 Delivery Nasal Cannula Nasal Cannula Nasal Cannula Nasal Cannula O2 Flow Rate 2.0 2.0 2.0 05/19/20 05/19/20 05/19/20 05/19/20 07:00 07:12 07:47 08:31 Temp 97.7 97.7 Pulse 66 67 Resp 20 18 B/P (MAP) 147/75 (99) 147/75 Pulse Ox 95 O2 Delivery Room Air Nasal Cannula Nasal Cannula O2 Flow Rate 2.0 2.0 2.0 05/19/20 05/19/20 05/19/20 08:32 08:32 10:00 Temp 97.6 97.6 Pulse 67 67 66 Resp 20 B/P (MAP) 147/75 147/75 132/72 (92) Pulse Ox 98 O2 Delivery Nasal Cannula O2 Flow Rate 2.0 Intake and Output 05/18/20 05/18/20 05/19/20 15:00 23:00 07:00 Intake Total 100 ml 500 ml 100 ml Output Total 300 ml 400 ml 600 ml Balance -200 ml 100 ml -500 ml Nutrition Consultation Dietary Evaluation: Recommendations by RD: Dietary education by RD, Increase Calorie Intake, Protein supplementation Comments: REC advance diet as able within next 24 - 48 hrs, goal diet cardiac w/strawberry Ensure at lunch per pt request REC Ensure clear (apple) w/lunch once pt advanced to clear liquids and tolerating diet If unable to advance diet within 24 - 48 hrs, recommend consideration of PPN for short-term nutrition support needs Expected Outcomes/Goals: diet advancement - not met, goal ongoing Malnutrition Findings: Food and Nutrition Intake (Sev: <50% est energy req 5days Weight Status: Appropriate Justicifation of Admission Dx: Justifications for Admission: Justification of Admission Dx: Yes (SBO, VOLVULUS, HYPOKALEMIA) ASHLEY GARDNER MD May 19, 2020 13:43
[2020-05-19 15:00] VITALS: BP 138/69
[2020-05-19 19:00] VITALS: BP 151/77
[2020-05-19] MEDS: ATORVASTATIN CALCIUM 40 MG TABLET. PO SCH (20:45)
--- NOTE | 2020-05-19 21:34 | NUR ---
EDUCATION Pt education done about pressure ulcer prevention and the importance of changing body position every 2 hours to preserve skin integrity. Pt is refusing at this time to do turns, he states he is refusing for the remainder of this shift. He has been in the same position since the start of my shift. Per day shift RN he was refusing for their shift as well. We will continue to assess pt willingness to change position. He verbalized understanding and is alert and oriented x4.
[2020-05-19 22:45] VITALS: BP 133/65
[2020-05-20 02:50] VITALS: BP 156/69
[2020-05-20 04:43] LABS: BASO # 0.1 x10^3/uL (0.0-0.2); BASO % 1 % (0-3); EOS # 0.7 x10^3/uL (0.0-0.7); EOS % 7 % (0-3); HEMATOCRIT 35.9 % (39.0-53.0); HEMOGLOBIN 12.2 g/dL (13.0-17.5); LYMPH # 2.3 x10^3/uL (1.0-4.8); LYMPH % 24 % (24-48); MEAN CORPUSCULAR HEMOGLOBIN 31 pg (25-35); MEAN CORPUSCULAR HGB CONC 34 g/dL (31-37); MEAN CORPUSCULAR VOLUME 90 fL (79-100); MONO # 0.7 x10^3/uL (0.0-1.1); MONO % 7 % (0-9); NEUT # 5.8 x10^3/uL (1.8-7.7); NEUT % 61 % (31-73); PLATELET COUNT 172 x10^3/uL (140-400); RED BLOOD COUNT 3.97 x10^6/uL (4.30-5.70); WHITE BLOOD COUNT 9.5 x10^3/uL (4.0-11.0)
[2020-05-20 04:57] LABS: CALCIUM 7.9 mg/dL (8.5-10.1); GFR 73.2; POTASSIUM 3.7 mmol/L (3.5-5.1)
[2020-05-20] MEDS: PIPERACILLIN/TAZOBACTAM 3.375 GM in IV NORMAL SALINE 50ML 50 ML IV SCH ×3 (05:49→17:52)
[2020-05-20 07:00] VITALS: BP 159/80
--- NOTE | 2020-05-20 08:50 | NUR ---
Pt refusing to allow staff to turn in bed. Pt also refusing to offload heels. Pt states he will be going home and that staff should stop asking if he would like to go to rehab or have home health. Pt stated that "[facility] tried to send me to a home and I told them I would call 911 and tell them they were kidnapping me". Pt states he will go home when it's time to DC. Pt educated on the importance of turning and offloading pressure to prevent skin breakdown. Pt verbalized understanding. Pt stated that the patient could turn himself if needed. Will continue to monitor.
[2020-05-20] MEDS: DIGOXIN 125 MCG TABLET. PO SCH (08:55)
[2020-05-20] MEDS: ASPIRIN ENTERIC COATED 81 MG TABLET.DR. PO SCH (08:55)
[2020-05-20] MEDS: LISINOPRIL 5 MG TABLET. PO SCH (08:55)
[2020-05-20] MEDS: APIXABAN 5 MG TABLET. PO SCH ×2 (08:55→21:27)
[2020-05-20] MEDS: HYDROcodone/APAP 5/325MG 1 TAB TABLET PO PRN ×2 (08:56→17:51)
[2020-05-20] MEDS: METOPROLOL SUCC 24HR ER 100 MG TAB.ER.24H. PO SCH (08:56)
[2020-05-20] MEDS: PANTOPRAZOLE IV PUSH 40 MG VIAL. IVP SCH ×2 (08:56→17:51)
--- NOTE | 2020-05-20 09:08 | PDOC ---
SURGICAL PROGRESS NOTE DATE: 05/20/20 TIME: 09:07 Subjective Patient doing quite well denies any nausea minimal pain passing stool tolerating clear liquids Vital Signs Vital Signs Date Time Temp Pulse Resp B/P (MAP) Pulse Ox O2 Delivery O2 Flow Rate FiO2 05/20/20 08:56 96 Nasal Cannula 2.0 05/20/20 08:56 65 156/69 05/20/20 07:00 97.7 20 97.7 I&O Intake and Output 05/20/20 07:00 Intake Total 1240 ml Output Total 1250 ml Balance -10 ml Intake Oral 1240 ml Output Urine Total 1250 ml # Bowel Movements 1 PATIENT HAS A PRATHER: No General: Alert, Oriented X3, Cooperative, mild distress Abdomen: Normal bowel sounds, Soft, Other (Mild incisional tenderness wound clean dry and intact) Labs Laboratory Tests Test 05/18/20 09:10 05/20/20 04:30 Sodium Level 143 mmol/L (136-145) 140 mmol/L (136-145) Potassium Level 4.2 mmol/L (3.5-5.1) 3.7 mmol/L (3.5-5.1) Chloride Level 109 mmol/L (98-107) 106 mmol/L (98-107) Carbon Dioxide Level 28 mmol/L (21-32) 28 mmol/L (21-32) Anion Gap 6 (6-14) 6 (6-14) Blood Urea Nitrogen 12 mg/dL (8-26) 7 mg/dL (8-26) Creatinine 1.2 mg/dL (0.7-1.3) 1.0 mg/dL (0.7-1.3) Estimated GFR (Cockcroft-Gault) 59.3 73.2 Glucose Level 107 mg/dL (70-99) 95 mg/dL (70-99) Calcium Level 8.3 mg/dL (8.5-10.1) 7.9 mg/dL (8.5-10.1) White Blood Count 9.5 x10^3/uL (4.0-11.0) Red Blood Count 3.97 x10^6/uL (4.30-5.70) Hemoglobin 12.2 g/dL (13.0-17.5) Hematocrit 35.9 % (39.0-53.0) Mean Corpuscular Volume 90 fL (79-100) Mean Corpuscular Hemoglobin 31 pg (25-35) Mean Corpuscular Hemoglobin Concent 34 g/dL (31-37) Red Cell Distribution Width 15.0 % (11.5-14.5) Platelet Count 172 x10^3/uL (140-400) Neutrophils (%) (Auto) 61 % (31-73) Lymphocytes (%) (Auto) 24 % (24-48) Monocytes (%) (Auto) 7 % (0-9) Eosinophils (%) (Auto) 7 % (0-3) Basophils (%) (Auto) 1 % (0-3) Neutrophils # (Auto) 5.8 x10^3/uL (1.8-7.7) Lymphocytes # (Auto) 2.3 x10^3/uL (1.0-4.8) Monocytes # (Auto) 0.7 x10^3/uL (0.0-1.1) Eosinophils # (Auto) 0.7 x10^3/uL (0.0-0.7) Basophils # (Auto) 0.1 x10^3/uL (0.0-0.2) Laboratory Tests Test 05/20/20 04:30 White Blood Count 9.5 x10^3/uL (4.0-11.0) Red Blood Count 3.97 x10^6/uL (4.30-5.70) Hemoglobin 12.2 g/dL (13.0-17.5) Hematocrit 35.9 % (39.0-53.0) Mean Corpuscular Volume 90 fL (79-100) Mean Corpuscular Hemoglobin 31 pg (25-35) Mean Corpuscular Hemoglobin Concent 34 g/dL (31-37) Red Cell Distribution Width 15.0 % (11.5-14.5) Platelet Count 172 x10^3/uL (140-400) Neutrophils (%) (Auto) 61 % (31-73) Lymphocytes (%) (Auto) 24 % (24-48) Monocytes (%) (Auto) 7 % (0-9) Eosinophils (%) (Auto) 7 % (0-3) Basophils (%) (Auto) 1 % (0-3) Neutrophils # (Auto) 5.8 x10^3/uL (1.8-7.7) Lymphocytes # (Auto) 2.3 x10^3/uL (1.0-4.8) Monocytes # (Auto) 0.7 x10^3/uL (0.0-1.1) Eosinophils # (Auto) 0.7 x10^3/uL (0.0-0.7) Basophils # (Auto) 0.1 x10^3/uL (0.0-0.2) Sodium Level 140 mmol/L (136-145) Potassium Level 3.7 mmol/L (3.5-5.1) Chloride Level 106 mmol/L (98-107) Carbon Dioxide Level 28 mmol/L (21-32) Anion Gap 6 (6-14) Blood Urea Nitrogen 7 mg/dL (8-26) Creatinine 1.0 mg/dL (0.7-1.3) Estimated GFR (Cockcroft-Gault) 73.2 Glucose Level 95 mg/dL (70-99) Calcium Level 7.9 mg/dL (8.5-10.1) Problem List Problems Medical Problems: (1) Abdominal pain Status: Acute (2) Sigmoid volvulus Status: Acute (3) Small bowel obstruction Status: Acute Assessment/Plan Status post sigmoid colon resection tolerating diet passing stool advance diet to regular Justicifation of Admission Dx: Justifications for Admission: Justification of Admission Dx: Yes (SBO, VOLVULUS, HYPOKALEMIA) LAUREL CLEMONS MD May 20, 2020 09:08
[2020-05-20] MEDS: POTASSIUM CL 40MEQ D5-0.45NACL 1,000 ML IV SCH ×2 (10:40→19:48)
[2020-05-20 11:00] VITALS: BP 123/59
--- NOTE | 2020-05-20 14:25 | PDOC ---
PROGRESS NOTES Date of Service: DATE: 05/20/20 TIME: 14:24 Chief Complaint Chief Complaint IMPRESSION Sigmoid volvulus, status post exploratory laparotomy and sigmoid colon resection Wall thickening of the rectum and sigmoid colon is consistent with a component of colitis. Clear liquid diet PAFIB with RVR; remains in AFIB. 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 Appears compensated CAD; recent cath with 2-vessel disease. No lesions needing intervention noted PAD; s/p recent REINFORCEMENT MAKER of the LSFA. Has BAR STEWARD of the right SFA. No critical limb ischemia Recommendations from cardiology as follows: Continue Digoxin and metoprolol for rate control Resume Eliquis for stroke prophylaxis; okay per surgical team Secondary prevention; ASA, statin, BB therapy HF optimization with BB, ACEi Outpatient f/u of PAD with consideration of REINFORCEMENT MAKER of the right SFA BAR STEWARD Repeat echo on an outpatient basis to re-assess LV systolic function, assess need for AICD Supportive care Follow up in our office with Dr. Olmos as scheduled. Follow GI and general dairy feed sales consultant recommendations, awaiting for better bowel function from the surgical consultation standpoint of view. Hopefully discharge soon Diet as per customer service consultant Maintenance fluids Pain management Continue IV antibiotics and supportive care History of Present Illness History of Present Illness 05/12 Patient status post exploratory laparotomy and sigmoid colon resection, 05/12. He states his pain is well controlled. NG tube in place. Denies any fevers. Discussed with RN. 05/13 Patient post ex lap and sigmoid colon resection. Pain well controlled with pain pump. NG tube in place. He tolerated a popsicle today. Denies any fevers. 05/15 Pain remains well controlled. Tolerating popsicle and ice chips. NG tube in place, will removed today. Advance diet slowly. 05/16 No acute events reported overnight, case discussed with nursing staff patient in no acute distress no complaints during my visit. N.p.o. as per attending 05/17 Patient laying in bed in no acute distress. No acute events reported overnight, the patient had 2 bowel movements as per nursing staff. We are waiting for surgical resident to start diet, patient is wanting to have liquids and is feeling hungry. He is passing gases as well reassurance has been provided 05/18 No acute events reported overnight, case discussed with nursing staff patient in no acute distress no complaints during my visit unable to advance diet does not feel like eating but has been able to tolerate liquids 05/19 Patient has been tolerating liquids but he relates that it hard time today he feels like he is getting quite full very quickly. No acute events reported overnight reassurance has been provided 05/20 Patient now on a full diet. He seems to be tolerating quite well and seems like his bowel function has returned almost to normal. We will continue to follow recommendations from our surgical resident hopefully discharge within the next 48 hours Vitals Vitals Vital Signs Date Time Temp Pulse Resp B/P (MAP) Pulse Ox O2 Delivery O2 Flow Rate FiO2 05/20/20 11:00 97.5 60 20 123/59 (80) 99 Nasal Cannula 2.0 97.5 Physical Exam General: Alert, Oriented X3, Cooperative, mild distress Heart: Regular rate, Other (tachy) Lungs: Clear Abdomen: Normal bowel sounds, Soft, Other (Mild incisional tenderness wound clean dry and intact) Extremities: No clubbing, No cyanosis Skin: No rashes, No breakdown Labs LABS Laboratory Tests Test 05/20/20 04:30 White Blood Count 9.5 x10^3/uL (4.0-11.0) Red Blood Count 3.97 x10^6/uL (4.30-5.70) Hemoglobin 12.2 g/dL (13.0-17.5) Hematocrit 35.9 % (39.0-53.0) Mean Corpuscular Volume 90 fL (79-100) Mean Corpuscular Hemoglobin 31 pg (25-35) Mean Corpuscular Hemoglobin Concent 34 g/dL (31-37) Red Cell Distribution Width 15.0 % (11.5-14.5) Platelet Count 172 x10^3/uL (140-400) Neutrophils (%) (Auto) 61 % (31-73) Lymphocytes (%) (Auto) 24 % (24-48) Monocytes (%) (Auto) 7 % (0-9) Eosinophils (%) (Auto) 7 % (0-3) Basophils (%) (Auto) 1 % (0-3) Neutrophils # (Auto) 5.8 x10^3/uL (1.8-7.7) Lymphocytes # (Auto) 2.3 x10^3/uL (1.0-4.8) Monocytes # (Auto) 0.7 x10^3/uL (0.0-1.1) Eosinophils # (Auto) 0.7 x10^3/uL (0.0-0.7) Basophils # (Auto) 0.1 x10^3/uL (0.0-0.2) Sodium Level 140 mmol/L (136-145) Potassium Level 3.7 mmol/L (3.5-5.1) Chloride Level 106 mmol/L (98-107) Carbon Dioxide Level 28 mmol/L (21-32) Anion Gap 6 (6-14) Blood Urea Nitrogen 7 mg/dL (8-26) Creatinine 1.0 mg/dL (0.7-1.3) Estimated GFR (Cockcroft-Gault) 73.2 Glucose Level 95 mg/dL (70-99) Calcium Level 7.9 mg/dL (8.5-10.1) Assessment and Plan Assessmemt and Plan Problems Medical Problems: (1) Abdominal pain Status: Acute (2) Sigmoid volvulus Status: Acute (3) Small bowel obstruction Status: Acute Comment Review of Relevant I have reviewed the following items ben (where applicable) has been applied. Labs Laboratory Tests Test 05/20/20 04:30 White Blood Count 9.5 x10^3/uL (4.0-11.0) Red Blood Count 3.97 x10^6/uL (4.30-5.70) Hemoglobin 12.2 g/dL (13.0-17.5) Hematocrit 35.9 % (39.0-53.0) Mean Corpuscular Volume 90 fL (79-100) Mean Corpuscular Hemoglobin 31 pg (25-35) Mean Corpuscular Hemoglobin Concent 34 g/dL (31-37) Red Cell Distribution Width 15.0 % (11.5-14.5) Platelet Count 172 x10^3/uL (140-400) Neutrophils (%) (Auto) 61 % (31-73) Lymphocytes (%) (Auto) 24 % (24-48) Monocytes (%) (Auto) 7 % (0-9) Eosinophils (%) (Auto) 7 % (0-3) Basophils (%) (Auto) 1 % (0-3) Neutrophils # (Auto) 5.8 x10^3/uL (1.8-7.7) Lymphocytes # (Auto) 2.3 x10^3/uL (1.0-4.8) Monocytes # (Auto) 0.7 x10^3/uL (0.0-1.1) Eosinophils # (Auto) 0.7 x10^3/uL (0.0-0.7) Basophils # (Auto) 0.1 x10^3/uL (0.0-0.2) Sodium Level 140 mmol/L (136-145) Potassium Level 3.7 mmol/L (3.5-5.1) Chloride Level 106 mmol/L (98-107) Carbon Dioxide Level 28 mmol/L (21-32) Anion Gap 6 (6-14) Blood Urea Nitrogen 7 mg/dL (8-26) Creatinine 1.0 mg/dL (0.7-1.3) Estimated GFR (Cockcroft-Gault) 73.2 Glucose Level 95 mg/dL (70-99) Calcium Level 7.9 mg/dL (8.5-10.1) Laboratory Tests Test 05/20/20 04:30 White Blood Count 9.5 x10^3/uL (4.0-11.0) Red Blood Count 3.97 x10^6/uL (4.30-5.70) Hemoglobin 12.2 g/dL (13.0-17.5) Hematocrit 35.9 % (39.0-53.0) Mean Corpuscular Volume 90 fL (79-100) Mean Corpuscular Hemoglobin 31 pg (25-35) Mean Corpuscular Hemoglobin Concent 34 g/dL (31-37) Red Cell Distribution Width 15.0 % (11.5-14.5) Platelet Count 172 x10^3/uL (140-400) Neutrophils (%) (Auto) 61 % (31-73) Lymphocytes (%) (Auto) 24 % (24-48) Monocytes (%) (Auto) 7 % (0-9) Eosinophils (%) (Auto) 7 % (0-3) Basophils (%) (Auto) 1 % (0-3) Neutrophils # (Auto) 5.8 x10^3/uL (1.8-7.7) Lymphocytes # (Auto) 2.3 x10^3/uL (1.0-4.8) Monocytes # (Auto) 0.7 x10^3/uL (0.0-1.1) Eosinophils # (Auto) 0.7 x10^3/uL (0.0-0.7) Basophils # (Auto) 0.1 x10^3/uL (0.0-0.2) Sodium Level 140 mmol/L (136-145) Potassium Level 3.7 mmol/L (3.5-5.1) Chloride Level 106 mmol/L (98-107) Carbon Dioxide Level 28 mmol/L (21-32) Anion Gap 6 (6-14) Blood Urea Nitrogen 7 mg/dL (8-26) Creatinine 1.0 mg/dL (0.7-1.3) Estimated GFR (Cockcroft-Gault) 73.2 Glucose Level 95 mg/dL (70-99) Calcium Level 7.9 mg/dL (8.5-10.1) Medications Current Medications Morphine Sulfate (Morphine Sulfate) 2 mg PRN Q15MIN PRN IV/SQ PAIN GREATER THAN 3/10 Last administered on 05/10/20at 18:55; Start 05/10/20 at 18:30; Stop 05/11/20 at 18:29; Status DC Sodium Chloride 1,000 ml @ 1,000 mls/hr Q1H IV Last administered on 05/10/20at 18:54; Start 05/10/20 at 18:16; Stop 05/10/20 at 19:15; Status DC Ondansetron HCl (Zofran) 4 mg 1X ONCE IVP Last administered on 05/10/20at 18:54; Start 05/10/20 at 18:30; Stop 05/10/20 at 18:31; Status DC Iohexol (Omnipaque 300 Mg/ml) 60 ml 1X ONCE IV Last administered on 05/10/20at 19:46; Start 05/10/20 at 20:00; Stop 05/10/20 at 20:01; Status DC Info (CONTRAST GIVEN -- Rx MONITORING) 1 each PRN DAILY PRN MC SEE COMMENTS; Start 05/10/20 at 19:45; Stop 05/12/20 at 19:44; Status DC Magnesium Sulfate 50 ml @ 25 mls/hr 1X ONCE IV Last administered on 05/10/20at 20:00; Start 05/10/20 at 20:00; Stop 05/10/20 at 21:59; Status DC Potassium Chloride/Water 100 ml @ 50 mls/hr 1X ONCE IV Last administered on 05/10/20at 21:21; Start 05/10/20 at 20:00; Stop 05/10/20 at 21:59; Status DC Potassium Chloride (Klor-Con) 40 meq 1X ONCE PO ; Start 05/10/20 at 20:00; Stop 05/10/20 at 20:01; Status DC Piperacillin Sod/ Tazobactam Sod 3.375 gm/Sodium Chloride 50 ml @ 100 mls/hr 1X ONCE IV Last administered on 05/10/20at 21:21; Start 05/10/20 at 21:00; Stop 05/10/20 at 21:29; Status DC Ondansetron HCl (Zofran) 4 mg PRN Q8HRS PRN IV NAUSEA/VOMITING; Start 05/10/20 at 21:00; Stop 05/11/20 at 16:01; Status DC Potassium Chloride/Dextrose/ Sod Cl 1,000 ml @ 125 mls/hr 1X ONCE IV Last administered on 05/10/20at 22:01; Start 05/10/20 at 21:30; Stop 05/11/20 at 05:29; Status DC Lorazepam (Ativan Inj) 1 mg 1X ONCE IVP Last administered on 05/10/20at 22:02; Start 05/10/20 at 22:00; Stop 05/10/20 at 22:01; Status DC Piperacillin Sod/ Tazobactam Sod 3.375 gm/Sodium Chloride 50 ml @ 100 mls/hr Q6HRS IV Last administered on 05/20/20at 13:04; Start 05/11/20 at 06:00 Ondansetron HCl (Zofran) 4 mg PRN Q6HRS PRN IVP NAUSEA/VOMITING Last administered on 05/17/20at 17:36; Start 05/10/20 at 23:00 Morphine Sulfate (Morphine Sulfate) 2 mg PRN Q1HR PRN IV MODERATE-SEVERE PAIN (1ST) Last administered on 05/11/20at 20:01; Start 05/10/20 at 23:00; Stop 05/13/20 at 08:00; Status DC Hydromorphone HCl (Dilaudid) 0.2 mg PRN Q1HR PRN IV MODERATE PAIN; Start 05/10/20 at 23:00; Stop 05/12/20 at 12:12; Status DC Hydromorphone HCl (Dilaudid) 0.4 mg PRN Q1HR PRN IV SEVERE PAIN; Start 05/10/20 at 23:00; Stop 05/12/20 at 12:12; Status DC Heparin Sodium (Porcine) (Heparin Sodium) 5,000 unit Q12HR SQ Last administered on 05/17/20at 08:39; Start 05/11/20 at 09:00; Stop 05/17/20 at 14:11; Status DC Sodium Chloride 1,000 ml @ 100 mls/hr Q10H IV Last administered on 05/14/20at 05:49; Start 05/10/20 at 23:15; Stop 05/14/20 at 07:47; Status DC Influenza Virus Vaccine Quadrival (Fluzone Quad [id number] Syringe) 0.5 ml ONCE ONCE VAX IM Last administered on 05/11/20at 11:58; Start 05/11/20 at 09:00; Stop 05/11/20 at 09:01; Status DC Potassium Chloride/Dextrose/ Sod Cl 1,000 ml @ 75 mls/hr [id number] PRN IV . Last administered on 05/11/20at 09:07; Start 05/11/20 at 08:15; Stop 05/14/20 at 07:46; Status DC Sodium Monofluorophosphate (Fleet Adult) 133 ml 1X ONCE UT Last administered on 05/11/20at 08:45; Start 05/11/20 at 08:45; Stop 05/11/20 at 08:46; Status DC Ringer's Solution 1,000 ml @ 75 mls/hr 1X ONCE IV Last administered on 05/11/20at 09:56; Start 05/11/20 at 10:00; Stop 05/11/20 at 23:19; Status DC Propofol (Diprivan) 200 mg STK-MED ONCE IV ; Start 05/11/20 at 10:33; Stop 05/11/20 at 10:33; Status DC Pantoprazole Sodium (PROTONIX VIAL for IV PUSH) 40 mg BIDAC IVP Last administered on 05/20/20at 08:56; Start 05/11/20 at 11:00 Ringer's Solution 1,000 ml @ 30 mls/hr Q24H IV Last administered on 05/12/20at 09:09; Start 05/12/20 at 07:00; Stop 05/12/20 at 18:59; Status DC Lidocaine HCl (Xylocaine-Mpf 1% 2ml Vial) 2 ml PRN 1X PRN ID PRIOR TO IV START; Start 05/12/20 at 07:00; Stop 05/13/20 at 06:59; Status DC Prochlorperazine Edisylate (Compazine) 5 mg PACU PRN PRN IV NAUSEA, MRX1; Start 05/12/20 at 07:00; Stop 05/13/20 at 06:59; Status DC Potassium Chloride/Water 100 ml @ 100 mls/hr Q1H IV Last administered on 05/11/20at 18:45; Start 05/11/20 at 17:15; Stop 05/11/20 at 19:14; Status DC Potassium Chloride/Water 100 ml @ 100 mls/hr Q1H IV Last administered on 05/12/20at 06:17; Start 05/11/20 at 23:30; Stop 05/12/20 at 03:29; Status DC Potassium Chloride/Water 100 ml @ 100 mls/hr Q1H IV Last administered on 05/12/20at 23:18; Start 05/12/20 at 09:00; Stop 05/12/20 at 13:02; Status DC Ketamine HCl (Ketamine) 50 mg STK-MED ONCE .ROUTE ; Start 05/12/20 at 08:39; Stop 05/12/20 at 08:39; Status DC Rocuronium [place] (Zemuron) 100 mg STK-MED ONCE .ROUTE ; Start 05/12/20 at 08:39; Stop 05/12/20 at 08:39; Status DC Fentanyl Citrate (Fentanyl 2ml Vial) 100 mcg STK-MED ONCE .ROUTE ; Start 05/12/20 at 08:39; Stop 05/12/20 at 08:39; Status DC Desflurane (Suprane) 60 ml STK-MED ONCE IH ; Start 05/12/20 at 08:40; Stop 05/12/20 at 08:40; Status DC Propofol (Diprivan) 200 mg STK-MED ONCE IV ; Start 05/12/20 at 08:40; Stop 05/12/20 at 08:40; Status DC Dexamethasone Sodium Phosphate (Decadron) 4 mg STK-MED ONCE .ROUTE ; Start 05/12/20 at 08:40; Stop 05/12/20 at 08:41; Status DC Phenylephrine HCl (Layo-Synephrine Inj) 10 mg STK-MED ONCE .ROUTE ; Start 05/12/20 at 08:41; Stop 05/12/20 at 08:41; Status DC Lidocaine HCl (Lidocaine Pf 2% Vial) 5 ml STK-MED ONCE .ROUTE ; Start 05/12/20 at 08:41; Stop 05/12/20 at 08:41; Status DC Ondansetron HCl (Zofran) 4 mg STK-MED ONCE .ROUTE ; Start 05/12/20 at 08:41; Stop 05/12/20 at 08:41; Status DC Famotidine (Pepcid Vial) 20 mg STK-MED ONCE .ROUTE ; Start 05/12/20 at 08:41; Stop 05/12/20 at 08:41; Status DC Fentanyl Citrate (Fentanyl 2ml Vial) 100 mcg STK-MED ONCE .ROUTE ; Start 05/12/20 at 09:00; Stop 05/12/20 at 09:00; Status DC Fentanyl Citrate (Fentanyl 2ml Vial) 100 mcg 1X ONCE IVP Last administered on 05/12/20at 09:12; Start 05/12/20 at 09:15; Stop 05/12/20 at 09:16; Status DC Succinylcholine Chloride (Anectine) 200 mg STK-MED ONCE .ROUTE ; Start 05/12/20 at 09:41; Stop 05/12/20 at 09:42; Status DC Sugammadex Sodium (Bridion) 200 mg 1X ONCE IVP ; Start 05/12/20 at 10:15; Stop 05/12/20 at 10:16; Status DC Remifentanil HCl (Ultiva) 1 mg STK-MED ONCE IV ; Start 05/12/20 at 10:14; Stop 05/12/20 at 10:15; Status DC Ropivacaine (Naropin 0.5%) 20 ml STK-MED ONCE .ROUTE ; Start 05/12/20 at 11:38; Stop 05/12/20 at 11:38; Status DC Naloxone HCl (Narcan) 0.4 mg PRN Q2MIN PRN IV SEE INSTRUCTIONS; Start 05/12/20 at 12:15 Sodium Chloride 1,000 ml @ 25 mls/hr Q24H IV Last administered on 05/16/20at 12:24; Start 05/12/20 at 12:08; Stop 05/18/20 at 12:11; Status DC Hydromorphone HCl 30 ml @ 0 mls/hr CONT PRN PRN IV PER PROTOCOL Last administered on 05/17/20at 13:13; Start 05/12/20 at 12:15; Stop 05/18/20 at 09:40; Status DC Ondansetron HCl (Zofran) 4 mg PRN Q6HRS PRN IV NAUSEA/VOMITING; Start 05/12/20 at 13:00; Stop 05/13/20 at 08:00; Status DC Fentanyl Citrate (Fentanyl 2ml Vial) 25 mcg PRN Q5MIN PRN IV MILD PAIN 1-3; S tart 05/12/20 at 13:00; Stop 05/13/20 at 08:00; Status DC Fentanyl Citrate (Fentanyl 2ml Vial) 50 mcg PRN Q5MIN PRN IV MODERATE TO SEVERE PAIN Last administered on 05/12/20at 12:59; Start 05/12/20 at 13:00; Stop 05/13/20 at 08:00; Status DC Morphine Sulfate (Morphine Sulfate) 1 mg PRN Q10MIN PRN IV SEVERE PAIN 7-10; Start 05/12/20 at 13:00; Stop 05/13/20 at 08:00; Status DC Ringer's Solution 1,000 ml @ 30 mls/hr Q24H IV ; Start 05/12/20 at 12:54; Stop 05/13/20 at 00:53; Status DC Lidocaine HCl (Xylocaine-Mpf 1% 2ml Vial) 2 ml PRN 1X PRN ID PRIOR TO IV START; Start 05/12/20 at 13:00; Stop 05/13/20 at 12:59; Status DC Hydromorphone HCl (Dilaudid) 0.5 mg PRN Q10MIN PRN IV SEV PAIN, Second choice; Start 05/12/20 at 13:00; Stop 05/13/20 at 08:00; Status DC Prochlorperazine Edisylate (Compazine) 5 mg PACU PRN PRN IV NAUSEA, MRX1; Start 05/12/20 at 13:00; Stop 05/13/20 at 08:00; Status DC Potassium Chloride/Dextrose/ Sod Cl 1,000 ml @ 75 mls/hr [id number] IV Last administered on 05/19/20at 23:49; Start 05/14/20 at 08:00 Digoxin (Lanoxin) 125 mcg DAILY PO Last administered on 05/20/20at 08:55; Start 05/16/20 at 09:00 Metoprolol Tartrate (Lopressor) 50 mg BID PO Last administered on 05/16/20at 21:02; Start 05/15/20 at 21:00; Stop 05/16/20 at 22:00; Status DC Metoprolol Tartrate (Lopressor Vial) 5 mg 1X ONCE IVP Last administered on 05/15/20at 06:07; Start 05/15/20 at 06:00; Stop 05/15/20 at 06:01; Status DC Digoxin (Lanoxin) 125 mcg 1X ONCE IV Last administered on 05/15/20at 06:27; Start 05/15/20 at 06:00; Stop 05/15/20 at 06:01; Status DC Digoxin (Lanoxin) 125 mcg 1X ONCE PO ; Start 05/15/20 at 06:00; Stop 05/15/20 at 06:01; Status DC Metoprolol Tartrate (Lopressor) 50 mg 1X ONCE PO Last administered on 05/15/20at 06:08; Start 05/15/20 at 06:00; Stop 05/15/20 at 06:01; Status DC Digoxin (Lanoxin) 250 mcg 1X ONCE IV Last administered on 05/15/20at 11:40; Start 05/15/20 at 11:30; Stop 05/15/20 at 11:31; Status DC Aspirin (Ecotrin) 81 mg DAILYWBKFT PO Last administered on 05/20/20at 08:55; Start 05/16/20 at 08:00 Atorvastatin Calcium (Lipitor) 40 mg QHS PO Last administered on 05/19/20at 20:45; Start 05/15/20 at 21:00 Metoprolol Succinate (Toprol Xl) 100 mg DAILY PO Last administered on 05/20/20at 08:56; Start 05/17/20 at 09:00 Lisinopril (Prinivil) 5 mg DAILY PO Last administered on 05/20/20at 08:55; Start 05/16/20 at 09:30 Apixaban (Eliquis) 5 mg BID PO Last administered on 05/20/20at 08:55; Start 05/17/20 at 21:00 Info (Anti-Coagulation Monitoring By Pharmacy) 1 each PRN DAILY PRN MC SEE COMMENTS Last administered on 05/18/20at 10:15; Start 05/17/20 at 15:00 Ondansetron HCl (Zofran) 4 mg PRN Q6HRS PRN IVP NAUSEA/VOMITING; Start 05/17/20 at 16:45; Stop 05/18/20 at 10:12; Status DC Acetaminophen/ Hydrocodone Bitart (Lortab 5/325) 1 tab PRN Q4HRS PRN PO PAIN Last administered on 05/20/20at 08:56; Start 05/18/20 at 09:45 Lactobacillus Rhamnosus (Culturelle) 1 cap BID PO ; Start 05/20/20 at 21:00 Active Scripts Active Polyethylene Glycol 3350 17 Gm Powd.pack 17 Gm PO PRN DAILY PRN 28 Days Bisacodyl 5 Mg Tablet. 5 Mg PO PRN DAILY PRN 14 Days Acetaminophen 500 Mg Tablet 500 Mg PO PRN Q6HRS PRN 30 Days Aspirin Ec (Aspirin) 81 Mg Tablet. 81 Mg PO DAILYWBKFT 30 Days Digoxin 125 Mcg Tablet 125 Mcg PO DAILY 30 Days Eliquis (Apixaban) 5 Mg Tablet 5 Mg PO BID 30 Days Duoneb 0.5-3(2.5) Mg/3 Ml (Albuterol/Ipratropium) 3 Ml Ampul.neb 3 Ml NEB RTQID 30 Days Vitamin C (Ascorbic Acid) 500 Mg Tablet 500 Mg PO DAILY 30 Days Thera-M Tablet (Multivits,Ca,Minerals/Iron/Fa) 1 Each Tablet 1 Tab PO DAILY 30 Days Pantoprazole Sodium (Pantoprazole Sodium) 40 Mg Tablet. 40 Mg PO DAILYAC 30 Days Klor-Con M20 (Potassium Chloride) 20 Meq Tab.er.prt 20 Meq PO DAILYWBKFT 30 Days Percocet 5-325 Mg Tablet (Oxycodone/Acetaminophen) 1 Each Tablet 1 Tab PO PRN Q6HRS PRN 6 Days Reported Symbicort 80-4.5 Mcg Inhaler (Budesonide/Formoterol Fumarate) 10.2 Gm Hfa.aer.ad 2 Puff IH BID Metoprolol Tartrate 50 Mg Tablet 1 Tab PO BID Vitals/I & O Vital Sign - Last 24 Hours 05/19/20 05/19/20 05/19/20 05/19/20 15:00 17:36 18:36 19:00 Temp 98.0 98.1 98.0 98.1 Pulse 64 71 Resp 20 18 18 23 B/P (MAP) 138/69 (92) 151/77 (101) Pulse Ox 99 97 O2 Delivery Nasal Cannula Nasal Cannula Nasal Cannula Nasal Cannula O2 Flow Rate 2.0 2.0 2.0 2.0 05/19/20 05/19/20 05/19/20 05/19/20 19:45 21:29 22:29 22:45 Temp 98.0 98.0 Pulse 63 Resp 20 18 22 B/P (MAP) 133/65 (87) Pulse Ox 97 O2 Delivery Nasal Cannula Nasal Cannula Nasal Cannula Nasal Cannula O2 Flow Rate 2.0 2.0 2.0 2.0 05/20/20 05/20/20 05/20/20 05/20/20 02:50 07:00 08:00 08:55 Temp 97.5 97.7 97.5 97.7 Pulse 65 64 65 Resp 21 20 B/P (MAP) 156/69 (98) 159/80 (106) 156/69 Pulse Ox 96 98 O2 Delivery Nasal Cannula Nasal Cannula Nasal Cannula O2 Flow Rate 2.0 2.0 2.0 05/20/20 05/20/20 05/20/20 05/20/20 08:55 08:56 08:56 10:40 Pulse 65 65 B/P (MAP) 156/69 156/69 Pulse Ox 96 96 O2 Delivery Nasal Cannula Nasal Cannula O2 Flow Rate 2.0 2.0 05/20/20 11:00 Temp 97.5 97.5 Pulse 60 Resp 20 B/P (MAP) 123/59 (80) Pulse Ox 99 O2 Delivery Nasal Cannula O2 Flow Rate 2.0 Intake and Output 05/19/20 05/19/20 05/20/20 15:00 23:00 07:00 Intake Total 240 ml 200 ml 800 ml Output Total 400 ml 700 ml 150 ml Balance -160 ml -500 ml 650 ml Nutrition Consultation Dietary Evaluation: Recommendations by RD: Dietary education by RD, Increase Calorie Intake, Protein supplementation Comments: REC advance diet as able within next 24 - 48 hrs, goal diet cardiac w/strawberry Ensure at lunch per pt request REC Ensure clear (apple) w/lunch once pt advanced to clear liquids and tolerating diet If unable to advance diet within 24 - 48 hrs, recommend consideration of PPN for short-term nutrition support needs Expected Outcomes/Goals: diet advancement - not met, goal ongoing Malnutrition Findings: Food and Nutrition Intake (Sev: <50% est energy req 5days Weight Status: Appropriate Justicifation of Admission Dx: Justifications for Admission: Justification of Admission Dx: Yes (SBO, VOLVULUS, HYPOKALEMIA) ASHLEY GARDNER MD May 20, 2020 14:25
[2020-05-20 15:00] VITALS: BP 146/69
[2020-05-20 19:05] VITALS: BP 118/67
[2020-05-20] MEDS: ATORVASTATIN CALCIUM 40 MG TABLET. PO SCH (21:27)
[2020-05-20] MEDS: LACTOBACILLUS RHAMNOSUS GG 1 CAPSULE. PO SCH (21:27)
[2020-05-20 23:15] VITALS: BP 156/67
[2020-05-21] MEDS: PIPERACILLIN/TAZOBACTAM 3.375 GM in IV NORMAL SALINE 50ML 50 ML IV SCH ×4 (00:02→18:22)
[2020-05-21 03:45] VITALS: BP 145/66
[2020-05-21] MEDS: HYDROcodone/APAP 5/325MG 1 TAB TABLET PO PRN ×3 (05:33→22:00)
[2020-05-21 07:00] VITALS: BP 136/63
[2020-05-21] MEDS: APIXABAN 5 MG TABLET. PO SCH ×2 (08:47→22:00)
[2020-05-21] MEDS: ASPIRIN ENTERIC COATED 81 MG TABLET.DR. PO SCH (08:47)
[2020-05-21] MEDS: LACTOBACILLUS RHAMNOSUS GG 1 CAPSULE. PO SCH ×2 (08:47→22:00)
[2020-05-21] MEDS: LISINOPRIL 5 MG TABLET. PO SCH (08:47)
[2020-05-21] MEDS: PANTOPRAZOLE IV PUSH 40 MG VIAL. IVP SCH (08:49)
[2020-05-21] MEDS: METOPROLOL SUCC 24HR ER 100 MG TAB.ER.24H. PO SCH (09:00)
[2020-05-21] MEDS: DIGOXIN 125 MCG TABLET. PO SCH (09:00)
--- NOTE | 2020-05-21 09:07 | PDOC ---
SURGICAL PROGRESS NOTE DATE: 05/21/20 TIME: 09:06 Subjective Patient doing quite well having bowel movements tolerating regular diet Vital Signs Vital Signs Date Time Temp Pulse Resp B/P (MAP) Pulse Ox O2 Delivery O2 Flow Rate FiO2 05/21/20 08:47 58 145/66 05/21/20 06:33 Room Air 05/21/20 03:45 97.7 20 98 2.0 97.7 I&O Intake and Output 05/21/20 07:00 Intake Total 1910 ml Output Total 1050 ml Balance 860 ml Intake Oral 910 ml IV Total 1000 ml Output Urine Total 1050 ml # Voids 1 # Bowel Movements 1 PATIENT HAS A PRATHER: No General: Alert, Oriented X3, Cooperative, mild distress Abdomen: Normal bowel sounds, Soft, Other (Wounds clean dry and intact mild incisional tenderness) Labs Laboratory Tests Test 05/20/20 04:30 White Blood Count 9.5 x10^3/uL (4.0-11.0) Red Blood Count 3.97 x10^6/uL (4.30-5.70) Hemoglobin 12.2 g/dL (13.0-17.5) Hematocrit 35.9 % (39.0-53.0) Mean Corpuscular Volume 90 fL (79-100) Mean Corpuscular Hemoglobin 31 pg (25-35) Mean Corpuscular Hemoglobin Concent 34 g/dL (31-37) Red Cell Distribution Width 15.0 % (11.5-14.5) Platelet Count 172 x10^3/uL (140-400) Neutrophils (%) (Auto) 61 % (31-73) Lymphocytes (%) (Auto) 24 % (24-48) Monocytes (%) (Auto) 7 % (0-9) Eosinophils (%) (Auto) 7 % (0-3) Basophils (%) (Auto) 1 % (0-3) Neutrophils # (Auto) 5.8 x10^3/uL (1.8-7.7) Lymphocytes # (Auto) 2.3 x10^3/uL (1.0-4.8) Monocytes # (Auto) 0.7 x10^3/uL (0.0-1.1) Eosinophils # (Auto) 0.7 x10^3/uL (0.0-0.7) Basophils # (Auto) 0.1 x10^3/uL (0.0-0.2) Sodium Level 140 mmol/L (136-145) Potassium Level 3.7 mmol/L (3.5-5.1) Chloride Level 106 mmol/L (98-107) Carbon Dioxide Level 28 mmol/L (21-32) Anion Gap 6 (6-14) Blood Urea Nitrogen 7 mg/dL (8-26) Creatinine 1.0 mg/dL (0.7-1.3) Estimated GFR (Cockcroft-Gault) 73.2 Glucose Level 95 mg/dL (70-99) Calcium Level 7.9 mg/dL (8.5-10.1) Problem List Problems Medical Problems: (1) Abdominal pain Status: Acute (2) Sigmoid volvulus Status: Acute (3) Small bowel obstruction Status: Acute Assessment/Plan Status post colon resection surgically stable Justicifation of Admission Dx: Justifications for Admission: Justification of Admission Dx: Yes (SBO, VOLVULUS, HYPOKALEMIA) LAUREL CLEMONS MD May 21, 2020 09:07
[2020-05-21 11:00] VITALS: BP 142/58
--- NOTE | 2020-05-21 11:11 | PDOC ---
PROGRESS NOTES Date of Service: DATE: 05/21/20 TIME: 11:10 Chief Complaint Chief Complaint IMPRESSION Sigmoid volvulus, status post exploratory laparotomy and sigmoid colon resection Wall thickening of the rectum and sigmoid colon is consistent with a component of colitis. Ileus resolved PAFIB with RVR; remains in AFIB. 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 Appears compensated CAD; recent cath with 2-vessel disease. No lesions needing intervention noted PAD; s/p recent DIPPER AND BAKER of the LSFA. Has STATUS CONTROLLER of the right SFA. No critical limb ischemia Recommendations from cardiology as follows: Continue Digoxin and metoprolol for rate control Resume Eliquis for stroke prophylaxis; okay per surgical team Secondary prevention; ASA, statin, BB therapy HF optimization with BB, ACEi Outpatient f/u of PAD with consideration of DIPPER AND BAKER of the right SFA STATUS CONTROLLER Repeat echo on an outpatient basis to re-assess LV systolic function, assess need for AICD Supportive care Follow up in our office with Dr. Olmos as scheduled. Follow GI and general dairy nutrition consultant recommendations, awaiting for better bowel function from the surgical consultation standpoint of view. Hopefully discharge soon Diet as per bi consultant Maintenance fluids will be discontinued in light of his good oral intake Pain management Continue IV antibiotics and supportive care History of Present Illness History of Present Illness 05/12 Patient status post exploratory laparotomy and sigmoid colon resection, 05/12. He states his pain is well controlled. NG tube in place. Denies any fevers. Discussed with RN. 05/13 Patient post ex lap and sigmoid colon resection. Pain well controlled with pain pump. NG tube in place. He tolerated a popsicle today. Denies any fevers. 05/15 Pain remains well controlled. Tolerating popsicle and ice chips. NG tube in place, will removed today. Advance diet slowly. 05/16 No acute events reported overnight, case discussed with nursing staff patient in no acute distress no complaints during my visit. N.p.o. as per attending 05/17 Patient laying in bed in no acute distress. No acute events reported overnight, the patient had 2 bowel movements as per nursing staff. We are waiting for assistant professor surgical technology to start diet, patient is wanting to have liquids and is feeling hungry. He is passing gases as well reassurance has been provided 05/18 No acute events reported overnight, case discussed with nursing staff patient in no acute distress no complaints during my visit unable to advance diet does not feel like eating but has been able to tolerate liquids 05/19 Patient has been tolerating liquids but he relates that it hard time today he feels like he is getting quite full very quickly. No acute events reported overnight reassurance has been provided 05/20 Patient now on a full diet. He seems to be tolerating quite well and seems like his bowel function has returned almost to normal. We will continue to follow recommendations from our assistant professor surgical technology hopefully discharge within the next 48 hours 05/21 Patient tolerating diet well. As per assistant professor surgical technology will observe 1 more day and if he continues to do well he may be discharged in the a.m. No complaints during my visit in no acute events reported overnight Vitals Vitals Vital Signs Date Time Temp Pulse Resp B/P (MAP) Pulse Ox O2 Delivery O2 Flow Rate FiO2 05/21/20 08:47 58 145/66 05/21/20 07:00 97.9 20 96 Nasal Cannula 2.0 97.9 Physical Exam General: Alert, Oriented X3, Cooperative, mild distress Heart: Regular rate, Other (tachy) Lungs: Clear Abdomen: Normal bowel sounds, Soft, Other (Wounds clean dry and intact mild incisional tenderness) Extremities: No clubbing, No cyanosis Skin: No rashes, No breakdown Assessment and Plan Assessmemt and Plan Problems Medical Problems: (1) Abdominal pain Status: Acute (2) Sigmoid volvulus Status: Acute (3) Small bowel obstruction Status: Acute Comment Review of Relevant I have reviewed the following items ben (where applicable) has been applied. Labs Laboratory Tests Test 05/20/20 04:30 White Blood Count 9.5 x10^3/uL (4.0-11.0) Red Blood Count 3.97 x10^6/uL (4.30-5.70) Hemoglobin 12.2 g/dL (13.0-17.5) Hematocrit 35.9 % (39.0-53.0) Mean Corpuscular Volume 90 fL (79-100) Mean Corpuscular Hemoglobin 31 pg (25-35) Mean Corpuscular Hemoglobin Concent 34 g/dL (31-37) Red Cell Distribution Width 15.0 % (11.5-14.5) Platelet Count 172 x10^3/uL (140-400) Neutrophils (%) (Auto) 61 % (31-73) Lymphocytes (%) (Auto) 24 % (24-48) Monocytes (%) (Auto) 7 % (0-9) Eosinophils (%) (Auto) 7 % (0-3) Basophils (%) (Auto) 1 % (0-3) Neutrophils # (Auto) 5.8 x10^3/uL (1.8-7.7) Lymphocytes # (Auto) 2.3 x10^3/uL (1.0-4.8) Monocytes # (Auto) 0.7 x10^3/uL (0.0-1.1) Eosinophils # (Auto) 0.7 x10^3/uL (0.0-0.7) Basophils # (Auto) 0.1 x10^3/uL (0.0-0.2) Sodium Level 140 mmol/L (136-145) Potassium Level 3.7 mmol/L (3.5-5.1) Chloride Level 106 mmol/L (98-107) Carbon Dioxide Level 28 mmol/L (21-32) Anion Gap 6 (6-14) Blood Urea Nitrogen 7 mg/dL (8-26) Creatinine 1.0 mg/dL (0.7-1.3) Estimated GFR (Cockcroft-Gault) 73.2 Glucose Level 95 mg/dL (70-99) Calcium Level 7.9 mg/dL (8.5-10.1) Medications Current Medications Morphine Sulfate (Morphine Sulfate) 2 mg PRN Q15MIN PRN IV/SQ PAIN GREATER THAN 3/10 Last administered on 05/10/20at 18:55; Start 05/10/20 at 18:30; Stop 05/11/20 at 18:29; Status DC Sodium Chloride 1,000 ml @ 1,000 mls/hr Q1H IV Last administered on 05/10/20at 18:54; Start 05/10/20 at 18:16; Stop 05/10/20 at 19:15; Status DC Ondansetron HCl (Zofran) 4 mg 1X ONCE IVP Last administered on 05/10/20at 18:54; Start 05/10/20 at 18:30; Stop 05/10/20 at 18:31; Status DC Iohexol (Omnipaque 300 Mg/ml) 60 ml 1X ONCE IV Last administered on 05/10/20at 19:46; Start 05/10/20 at 20:00; Stop 05/10/20 at 20:01; Status DC Info (CONTRAST GIVEN -- Rx MONITORING) 1 each PRN DAILY PRN MC SEE COMMENTS; Start 05/10/20 at 19:45; Stop 05/12/20 at 19:44; Status DC Magnesium Sulfate 50 ml @ 25 mls/hr 1X ONCE IV Last administered on 05/10/20at 20:00; Start 05/10/20 at 20:00; Stop 05/10/20 at 21:59; Status DC Potassium Chloride/Water 100 ml @ 50 mls/hr 1X ONCE IV Last administered on 05/10/20at 21:21; Start 05/10/20 at 20:00; Stop 05/10/20 at 21:59; Status DC Potassium Chloride (Klor-Con) 40 meq 1X ONCE PO ; Start 05/10/20 at 20:00; Stop 05/10/20 at 20:01; Status DC Piperacillin Sod/ Tazobactam Sod 3.375 gm/Sodium Chloride 50 ml @ 100 mls/hr 1X ONCE IV Last administered on 05/10/20at 21:21; Start 05/10/20 at 21:00; Stop 05/10/20 at 21:29; Status DC Ondansetron HCl (Zofran) 4 mg PRN Q8HRS PRN IV NAUSEA/VOMITING; Start 05/10/20 at 21:00; Stop 05/11/20 at 16:01; Status DC Potassium Chloride/Dextrose/ Sod Cl 1,000 ml @ 125 mls/hr 1X ONCE IV Last administered on 05/10/20at 22:01; Start 05/10/20 at 21:30; Stop 05/11/20 at 05:29; Status DC Lorazepam (Ativan Inj) 1 mg 1X ONCE IVP Last administered on 05/10/20at 22:02; Start 05/10/20 at 22:00; Stop 05/10/20 at 22:01; Status DC Piperacillin Sod/ Tazobactam Sod 3.375 gm/Sodium Chloride 50 ml @ 100 mls/hr Q6HRS IV Last administered on 05/21/20at 05:33; Start 05/11/20 at 06:00 Ondansetron HCl (Zofran) 4 mg PRN Q6HRS PRN IVP NAUSEA/VOMITING Last administered on 05/17/20at 17:36; Start 05/10/20 at 23:00 Morphine Sulfate (Morphine Sulfate) 2 mg PRN Q1HR PRN IV MODERATE-SEVERE PAIN (1ST) Last administered on 05/11/20at 20:01; Start 05/10/20 at 23:00; Stop 05/13/20 at 08:00; Status DC Hydromorphone HCl (Dilaudid) 0.2 mg PRN Q1HR PRN IV MODERATE PAIN; Start 05/10/20 at 23:00; Stop 05/12/20 at 12:12; Status DC Hydromorphone HCl (Dilaudid) 0.4 mg PRN Q1HR PRN IV SEVERE PAIN; Start 05/10/20 at 23:00; Stop 05/12/20 at 12:12; Status DC Heparin Sodium (Porcine) (Heparin Sodium) 5,000 unit Q12HR SQ Last administered on 05/17/20at 08:39; Start 05/11/20 at 09:00; Stop 05/17/20 at 14:11; Status DC Sodium Chloride 1,000 ml @ 100 mls/hr Q10H IV Last administered on 05/14/20at 05:49; Start 05/10/20 at 23:15; Stop 05/14/20 at 07:47; Status DC Influenza Virus Vaccine Quadrival (Fluzone Quad 3566-6559 Syringe) 0.5 ml ONCE ONCE VAX IM Last administered on 05/11/20at 11:58; Start 05/11/20 at 09:00; Stop 05/11/20 at 09:01; Status DC Potassium Chloride/Dextrose/ Sod Cl 1,000 ml @ 75 mls/hr [id number] PRN IV . Last administered on 05/11/20at 09:07; Start 05/11/20 at 08:15; Stop 05/14/20 at 07:46; Status DC Sodium Monofluorophosphate (Fleet Adult) 133 ml 1X ONCE WV Last administered on 05/11/20at 08:45; Start 05/11/20 at 08:45; Stop 05/11/20 at 08:46; Status DC Ringer's Solution 1,000 ml @ 75 mls/hr 1X ONCE IV Last administered on 05/11/20at 09:56; Start 05/11/20 at 10:00; Stop 05/11/20 at 23:19; Status DC Propofol (Diprivan) 200 mg STK-MED ONCE IV ; Start 05/11/20 at 10:33; Stop 05/11/20 at 10:33; Status DC Pantoprazole Sodium (PROTONIX VIAL for IV PUSH) 40 mg BIDAC IVP Last administered on 05/21/20at 08:49; Start 05/11/20 at 11:00 Ringer's Solution 1,000 ml @ 30 mls/hr Q24H IV Last administered on 05/12/20at 09:09; Start 05/12/20 at 07:00; Stop 05/12/20 at 18:59; Status DC Lidocaine HCl (Xylocaine-Mpf 1% 2ml Vial) 2 ml PRN 1X PRN ID PRIOR TO IV START; Start 05/12/20 at 07:00; Stop 05/13/20 at 06:59; Status DC Prochlorperazine Edisylate (Compazine) 5 mg PACU PRN PRN IV NAUSEA, MRX1; Start 05/12/20 at 07:00; Stop 05/13/20 at 06:59; Status DC Potassium Chloride/Water 100 ml @ 100 mls/hr Q1H IV Last administered on 05/11/20at 18:45; Start 05/11/20 at 17:15; Stop 05/11/20 at 19:14; Status DC Potassium Chloride/Water 100 ml @ 100 mls/hr Q1H IV Last administered on 05/12/20at 06:17; Start 05/11/20 at 23:30; Stop 05/12/20 at 03:29; Status DC Potassium Chloride/Water 100 ml @ 100 mls/hr Q1H IV Last administered on 05/12/20at 23:18; Start 05/12/20 at 09:00; Stop 05/12/20 at 13:02; Status DC Ketamine HCl (Ketamine) 50 mg STK-MED ONCE .ROUTE ; Start 05/12/20 at 08:39; Stop 05/12/20 at 08:39; Status DC Rocuronium Hamilton (Zemuron) 100 mg STK-MED ONCE .ROUTE ; Start 05/12/20 at 08:39; Stop 05/12/20 at 08:39; Status DC Fentanyl Citrate (Fentanyl 2ml Vial) 100 mcg STK-MED ONCE .ROUTE ; Start 05/12/20 at 08:39; Stop 05/12/20 at 08:39; Status DC Desflurane (Suprane) 60 ml STK-MED ONCE IH ; Start 05/12/20 at 08:40; Stop 05/12/20 at 08:40; Status DC Propofol (Diprivan) 200 mg STK-MED ONCE IV ; Start 05/12/20 at 08:40; Stop 05/12/20 at 08:40; Status DC Dexamethasone Sodium Phosphate (Decadron) 4 mg STK-MED ONCE .ROUTE ; Start 05/12/20 at 08:40; Stop 05/12/20 at 08:41; Status DC Phenylephrine HCl (Layo-Synephrine Inj) 10 mg STK-MED ONCE .ROUTE ; Start 05/12/20 at 08:41; Stop 05/12/20 at 08:41; Status DC Lidocaine HCl (Lidocaine Pf 2% Vial) 5 ml STK-MED ONCE .ROUTE ; Start 05/12/20 at 08:41; Stop 05/12/20 at 08:41; Status DC Ondansetron HCl (Zofran) 4 mg STK-MED ONCE .ROUTE ; Start 05/12/20 at 08:41; Stop 05/12/20 at 08:41; Status DC Famotidine (Pepcid Vial) 20 mg STK-MED ONCE .ROUTE ; Start 05/12/20 at 08:41; Stop 05/12/20 at 08:41; Status DC Fentanyl Citrate (Fentanyl 2ml Vial) 100 mcg STK-MED ONCE .ROUTE ; Start 05/12/20 at 09:00; Stop 05/12/20 at 09:00; Status DC Fentanyl Citrate (Fentanyl 2ml Vial) 100 mcg 1X ONCE IVP Last administered on 05/12/20at 09:12; Start 05/12/20 at 09:15; Stop 05/12/20 at 09:16; Status DC Succinylcholine Chloride (Anectine) 200 mg STK-MED ONCE .ROUTE ; Start 05/12/20 at 09:41; Stop 05/12/20 at 09:42; Status DC Sugammadex Sodium (Bridion) 200 mg 1X ONCE IVP ; Start 05/12/20 at 10:15; Stop 05/12/20 at 10:16; Status DC Remifentanil HCl (Ultiva) 1 mg STK-MED ONCE IV ; Start 05/12/20 at 10:14; Stop 05/12/20 at 10:15; Status DC Ropivacaine (Naropin 0.5%) 20 ml STK-MED ONCE .ROUTE ; Start 05/12/20 at 11:38; Stop 05/12/20 at 11:38; Status DC Naloxone HCl (Narcan) 0.4 mg PRN Q2MIN PRN IV SEE INSTRUCTIONS; Start 05/12/20 at 12:15 Sodium Chloride 1,000 ml @ 25 mls/hr Q24H IV Last administered on 05/16/20at 12:24; Start 05/12/20 at 12:08; Stop 05/18/20 at 12:11; Status DC Hydromorphone HCl 30 ml @ 0 mls/hr CONT PRN PRN IV PER PROTOCOL Last administered on 05/17/20at 13:13; Start 05/12/20 at 12:15; Stop 05/18/20 at 09:40; Status DC Ondansetron HCl (Zofran) 4 mg PRN Q6HRS PRN IV NAUSEA/VOMITING; Start 05/12/20 at 13:00; Stop 05/13/20 at 08:00; Status DC Fentanyl Citrate (Fentanyl 2ml Vial) 25 mcg PRN Q5MIN PRN IV MILD PAIN 1-3; Start 05/12/20 at 13:00; Stop 05/13/20 at 08:00; Status DC Fentanyl Citrate (Fentanyl 2ml Vial) 50 mcg PRN Q5MIN PRN IV MODERATE TO SEVERE PAIN Last administered on 05/12/20at 12:59; Start 05/12/20 at 13:00; Stop 05/13/20 at 08:00; Status DC Morphine Sulfate (Morphine Sulfate) 1 mg PRN Q10MIN PRN IV SEVERE PAIN 7-10; Start 05/12/20 at 13:00; Stop 05/13/20 at 08:00; Status DC Ringer's Solution 1,000 ml @ 30 mls/hr Q24H IV ; Start 05/12/20 at 12:54; Stop 05/13/20 at 00:53; Status DC Lidocaine HCl (Xylocaine-Mpf 1% 2ml Vial) 2 ml PRN 1X PRN ID PRIOR TO IV START; Start 05/12/20 at 13:00; Stop 05/13/20 at 12:59; Status DC Hydromorphone HCl (Dilaudid) 0.5 mg PRN Q10MIN PRN IV SEV PAIN, Second choice; Start 05/12/20 at 13:00; Stop 05/13/20 at 08:00; Status DC Prochlorperazine Edisylate (Compazine) 5 mg PACU PRN PRN IV NAUSEA, MRX1; Start 05/12/20 at 13:00; Stop 05/13/20 at 08:00; Status DC Potassium Chloride/Dextrose/ Sod Cl 1,000 ml @ 75 mls/hr [id number] IV Last administered on 05/20/20at 19:48; Start 05/14/20 at 08:00 Digoxin (Lanoxin) 125 mcg DAILY PO Last administered on 05/20/20at 08:55; Start 05/16/20 at 09:00 Metoprolol Tartrate (Lopressor) 50 mg BID PO Last administered on 05/16/20at 21:02; Start 05/15/20 at 21:00; Stop 05/16/20 at 22:00; Status DC Metoprolol Tartrate (Lopressor Vial) 5 mg 1X ONCE IVP Last administered on 05/15/20at 06:07; Start 05/15/20 at 06:00; Stop 05/15/20 at 06:01; Status DC Digoxin (Lanoxin) 125 mcg 1X ONCE IV Last administered on 05/15/20at 06:27; Start 05/15/20 at 06:00; Stop 05/15/20 at 06:01; Status DC Digoxin (Lanoxin) 125 mcg 1X ONCE PO ; Start 05/15/20 at 06:00; Stop 05/15/20 at 06:01; Status DC Metoprolol Tartrate (Lopressor) 50 mg 1X ONCE PO Last administered on 05/15/20at 06:08; Start 05/15/20 at 06:00; Stop 05/15/20 at 06:01; Status DC Digoxin (Lanoxin) 250 mcg 1X ONCE IV Last administered on 05/15/20at 11:40; Start 05/15/20 at 11:30; Stop 05/15/20 at 11:31; Status DC Aspirin (Ecotrin) 81 mg DAILYWBKFT PO Last administered on 05/21/20at 08:47; Start 05/16/20 at 08:00 Atorvastatin Calcium (Lipitor) 40 mg QHS PO Last administered on 05/20/20at 21:27; Start 05/15/20 at 21:00 Metoprolol Succinate (Toprol Xl) 100 mg DAILY PO Last administered on 05/20/20at 08:56; Start 05/17/20 at 09:00 Lisinopril (Prinivil) 5 mg DAILY PO Last administered on 05/21/20 08:47; Start 05/16/20 at 09:30 Apixaban (Eliquis) 5 mg BID PO Last administered on 05/21/20at 08:47; Start 05/17/20 at 21:00 Info (Anti-Coagulation Monitoring By Pharmacy) 1 each PRN DAILY PRN MC SEE COMMENTS Last administered on 05/18/20at 10:15; Start 05/17/20 at 15:00 Ondansetron HCl (Zofran) 4 mg PRN Q6HRS PRN IVP NAUSEA/VOMITING; Start 05/17/20 at 16:45; Stop 05/18/20 at 10:12; Status DC Acetaminophen/ Hydrocodone Bitart (Lortab 5/325) 1 tab PRN Q4HRS PRN PO PAIN Last administered on 05/21/20at 05:33; Start 05/18/20 at 09:45 Lactobacillus Rhamnosus (Culturelle) 1 cap BID PO Last administered on 05/21/20at 08:47; Start 05/20/20 at 21:00 Active Scripts Active Polyethylene Glycol 3350 17 Gm Powd.pack 17 Gm PO PRN DAILY PRN 28 Days Bisacodyl 5 Mg Tablet. 5 Mg PO PRN DAILY PRN 14 Days Acetaminophen 500 Mg Tablet 500 Mg PO PRN Q6HRS PRN 30 Days Aspirin Ec (Aspirin) 81 Mg Tablet.dr 81 Mg PO DAILYWBKFT 30 Days Digoxin 125 Mcg Tablet 125 Mcg PO DAILY 30 Days Eliquis (Apixaban) 5 Mg Tablet 5 Mg PO BID 30 Days Duoneb 0.5-3(2.5) Mg/3 Ml (Albuterol/Ipratropium) 3 Ml Ampul.neb 3 Ml NEB RTQID 30 Days Vitamin C (Ascorbic Acid) 500 Mg Tablet 500 Mg PO DAILY 30 Days Thera-M Tablet (Multivits,Ca,Minerals/Iron/Fa) 1 Each Tablet 1 Tab PO DAILY 30 Days Pantoprazole Sodium (Pantoprazole Sodium) 40 Mg Tablet.dr 40 Mg PO DAILYAC 30 Days Klor-Con M20 (Potassium Chloride) 20 Meq Tab.er.prt 20 Meq PO DAILYWBKFT 30 Days Percocet 5-325 Mg Tablet (Oxycodone/Acetaminophen) 1 Each Tablet 1 Tab PO PRN Q6HRS PRN 6 Days Reported Symbicort 80-4.5 Mcg Inhaler (Budesonide/Formoterol Fumarate) 10.2 Gm Hfa.aer.ad 2 Puff IH BID Metoprolol Tartrate 50 Mg Tablet 1 Tab PO BID Vitals/I & O Vital Sign - Last 24 Hours 05/20/20 05/20/20 05/20/20 05/20/20 15:00 17:51 19:00 19:05 Temp 98.1 97.9 98.1 97.9 Pulse 61 62 Resp 20 21 B/P (MAP) 146/69 (94) 118/67 (84) Pulse Ox 98 98 99 O2 Delivery Nasal Cannula Nasal Cannula Nasal Cannula Nasal Cannula O2 Flow Rate 2.0 2.0 2.0 05/20/20 05/20/20 05/21/20 05/21/20 20:00 23:15 03:00 03:45 Temp 97.9 97.7 97.9 97.7 Pulse 61 58 Resp 22 20 B/P (MAP) 156/67 (96) 145/66 (92) Pulse Ox 97 98 O2 Delivery Nasal Cannula Nasal Cannula Nasal Cannula Nasal Cannula O2 Flow Rate 2.0 2.0 2.0 05/21/20 05/21/20 05/21/20 06:33 07:00 08:47 Temp 97.9 97.9 Pulse 60 58 Resp 20 B/P (MAP) 136/63 (87) 145/66 Pulse Ox 96 O2 Delivery Room Air Nasal Cannula O2 Flow Rate 2.0 Intake and Output 05/20/20 05/20/20 05/21/20 15:00 23:00 07:00 Intake Total 550 ml 1360 ml Output Total 700 ml 350 ml Balance 550 ml -700 ml 1010 ml Nutrition Consultation Dietary Evaluation: Recommendations by RD: Dietary education by RD, Increase Calorie Intake, Protein supplementation Comments: REC advance diet as able within next 24 - 48 hrs, goal diet cardiac w/strawberry Ensure at lunch per pt request REC Ensure clear (apple) w/lunch once pt advanced to clear liquids and tolerating diet If unable to advance diet within 24 - 48 hrs, recommend consideration of PPN for short-term nutrition support needs Expected Outcomes/Goals: diet advancement - not met, goal ongoing Malnutrition Findings: Food and Nutrition Intake (Sev: <50% est energy req 5days Weight Status: Appropriate Justicifation of Admission Dx: Justifications for Admission: Justification of Admission Dx: Yes (SBO, VOLVULUS, HYPOKALEMIA) ASHLEY GARDNER MD May 21, 2020 11:11
[2020-05-21 15:00] VITALS: BP 153/76
[2020-05-21] MEDS: PANTOPRAZOLE 40 MG TABLET.DR. PO SCH (18:21)
[2020-05-21 19:00] VITALS: BP 147/69
[2020-05-21] MEDS: ATORVASTATIN CALCIUM 40 MG TABLET. PO SCH (22:00)
[2020-05-21 23:00] VITALS: BP 145/62
[2020-05-22 03:05] VITALS: BP 150/67
[2020-05-22] MEDS: PIPERACILLIN/TAZOBACTAM 3.375 GM in IV NORMAL SALINE 50ML 50 ML IV SCH ×5 (06:40→23:06)
[2020-05-22 07:00] VITALS: BP 141/74
[2020-05-22] MEDS: DIGOXIN 125 MCG TABLET. PO SCH (09:17)
[2020-05-22] MEDS: PANTOPRAZOLE 40 MG TABLET.DR. PO SCH ×2 (09:18→17:16)
[2020-05-22] MEDS: METOPROLOL SUCC 24HR ER 100 MG TAB.ER.24H. PO SCH (09:18)
[2020-05-22] MEDS: APIXABAN 5 MG TABLET. PO SCH ×2 (09:18→20:45)
[2020-05-22] MEDS: LISINOPRIL 5 MG TABLET. PO SCH (09:18)
[2020-05-22] MEDS: ASPIRIN ENTERIC COATED 81 MG TABLET.DR. PO SCH (09:18)
[2020-05-22] MEDS: LACTOBACILLUS RHAMNOSUS GG 1 CAPSULE. PO SCH ×2 (09:18→20:45)
[2020-05-22] MEDS: HYDROcodone/APAP 5/325MG 1 TAB TABLET PO PRN ×3 (09:19→22:33)
--- NOTE | 2020-05-22 09:41 | PDOC ---
KAYLI HOWARD APRN 05/22/20 0941: SURGICAL PROGRESS NOTE DATE: 05/22/20 TIME: 09:40 Subjective tolerating diet having stools no n/v Vital Signs Vital Signs Date Time Temp Pulse Resp B/P (MAP) Pulse Ox O2 Delivery O2 Flow Rate FiO2 05/22/20 09:19 3.0 05/22/20 09:18 68 141/74 05/22/20 07:31 Nasal Cannula 05/22/20 07:00 97.6 22 95 97.6 I&O Intake and Output 05/22/20 07:00 Intake Total 1240 ml Output Total 905 ml Balance 335 ml Intake Oral 1240 ml Output Urine Total 905 ml # Voids 2 General: Alert, Oriented X3, Cooperative Abdomen: Soft, Other (ND, lisha drain in place) Problem List Problems Medical Problems: (1) Abdominal pain Status: Acute (2) Sigmoid volvulus Status: Acute (3) Small bowel obstruction Status: Acute Assessment/Plan stable surgically remove lisha drain Justicifation of Admission Dx: Justifications for Admission: Justification of Admission Dx: Yes (SBO, VOLVULUS, HYPOKALEMIA) SHELIA CASTILLO MD 05/22/20 1158: SURGICAL PROGRESS NOTE Assessment/Plan Agree with above KAYLI HOWARD APRN May 22, 2020 09:41 SHELIA CASTILLO MD May 22, 2020 11:58
[2020-05-22 10:36] VITALS: BP 131/54
--- NOTE | 2020-05-22 10:57 | PDOC ---
CARDIOLOGY PROGRESS NOTE SUBJECTIVE: No new CV issues. Maintaining SR Denies any chest pain. No dyspnea. OBJECTIVE: Vital Signs/I&O: Vital Signs Date Time Temp Pulse Resp B/P (MAP) Pulse Ox O2 Delivery O2 Flow Rate FiO2 05/22/20 10:36 98.1 63 22 131/54 (79) 100 Nasal Cannula 3.0 98.1 l I & O 05/21/20 05/21/20 05/22/20 15:00 23:00 07:00 Intake Total 580 ml 260 ml 400 ml Output Total 505 ml 400 ml Balance 580 ml -245 ml 0 ml Objective: a/o x 3. NAD Abd now soft regular rhythm, no murmurs Diminished pedal pulses CURRENT MEDICATIONS: Current Medications Medications (Trade) Dose Ordered Sig/Marcio Route PRN Reason Start Time Stop Time Status Last Admin Dose Admin Pantoprazole Sodium (Protonix) 40 mg BIDAC PO 05/21/20 16:30 05/22/20 09:18 DIAGNOSTIC TESTING: labs reviewed ASSESSMENT: 1. 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 postoperative afib in the setting of sigmoid volvulus, now in SR. 3. HTN 4. 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 At this time, continue Toprol XL, Lisinopril for his CMP 2. Continue asa, statin for PAD and CAD hx 3. Continue eliquis for anticoagulation given recent afib. 4. Will plan for repeat echo and LE doppler on an outpt basis after resolution of acute issues and then decide about medical titration and further PAD intervention. 5. Stop Digoxin for now. Thanks. Ok to DC from CV standpoint. Justicifation of Admission Dx: Justifications for Admission: Justification of Admission Dx: Yes (SBO, VOLVULUS, HYPOKALEMIA) GRACY BRADSHAW MD May 22, 2020 10:57
--- NOTE | 2020-05-22 11:00 | NUR ---
Wound Care Wound Type/Assessment: R heel resolving DTI, intact, dry, deflated blood blister, no fluctuance noted. Coccyx is a scabbed area that appears to have been an abrasion or result of friction or sheering, no open area noted. Treatment Recommendations/Plan: Foam dressing to heels, Calazime cream to coccyx Education provided: to RN re: POC Offloading surface/device: wedge and pillows, Heelmedix boots to feet to float heels. Recommended Referrals/Tests: n/a Discharge Recommendations for dressings: see treatment plan above.
[2020-05-22] MEDS: ANTI-COAG MONITOR BY PHARMACY. MC PRN (11:03)
--- NOTE | 2020-05-22 12:14 | NUR ---
SS following up with discharge planning. SS reviewed pt chart and discussed with pt RN. Pt is currently requiring oxygen and is on IV Zosyn. COVId19 negative. SS met with pt to discuss discharge planning. Pt continues to decline fpc unit and home healthcare. SS discussed possible hospice services with pt and pt declined. Pt reported that he "has a power chair and walker at home and if he needs something he has money and will pay for it." Pt reported that he "does not want anyone in his home." Pt agreeable to six minute walk and oxygen if needed. Physician and pt's RN notified. SS will continue to follow for discharge planning.
[2020-05-22 14:39] VITALS: BP 145/64
--- NOTE | 2020-05-22 15:49 | NUR ---
Have reviewed and agree with documentation by internship coordinator; have made changes as needed
--- NOTE | 2020-05-22 16:55 | PDOC ---
[facility] PROGRESS NOTE Date of Service DOS: DATE: 05/22/20 TIME: 16:53 Chief Complaint Chief Complaint IMPRESSION Sigmoid volvulus, status post exploratory laparotomy and sigmoid colon resection Wall thickening of the rectum and sigmoid colon is consistent with a component of colitis. Ileus resolved PAFIB with RVR; remains in AFIB. 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 Appears compensated CAD; recent cath with 2-vessel disease. No lesions needing intervention noted PAD; s/p recent DRUM TESTER of the LSFA. Has SUPERVISOR GELATIN PLANT of the right SFA. No critical limb ischemia Recommendations from cardiology as follows: Continue Digoxin and metoprolol for rate control Resume Eliquis for stroke prophylaxis; okay per surgical team Secondary prevention; ASA, statin, BB therapy HF optimization with BB, ACEi Outpatient f/u of PAD with consideration of DRUM TESTER of the right SFA SUPERVIS[employer] Repeat echo on an outpatient basis to re-assess LV systolic function, assess need for AICD Supportive care Follow up in our office with Dr. Olmos as scheduled. Follow GI and general management consultant recommendations, awaiting for better b owel function from the surgical consultation standpoint of view. Hopefully discharge soon Diet as per commercial sales consultant Maintenance fluids will be discontinued in light of his good oral intake Pain management Continue IV antibiotics and supportive care History of Present Illness History of Present Illness 05/12 Patient status post exploratory laparotomy and sigmoid colon resection, 05/12. He states his pain is well controlled. NG tube in place. Denies any fevers. Discussed with RN. 05/13 Patient post ex lap and sigmoid colon resection. Pain well controlled with pain pump. NG tube in place. He tolerated a popsicle today. Denies any fevers. 05/15 Pain remains well controlled. Tolerating popsicle and ice chips. NG tube in place, will removed today. Advance diet slowly. 05/16 No acute events reported overnight, case discussed with nursing staff patient in no acute distress no complaints during my visit. N.p.o. as per attending 05/17 Patient laying in bed in no acute distress. No acute events reported overnight, the patient had 2 bowel movements as per nursing staff. We are waiting for surgical supply assistant to start diet, patient is wanting to have liquids and is feeling hungry. He is passing gases as well reassurance has been provided 05/18 No acute events reported overnight, case discussed with nursing staff patient in no acute distress no complaints during my visit unable to advance diet does not feel like eating but has been able to tolerate liquids 05/19 Patient has been tolerating liquids but he relates that it hard time today he feels like he is getting quite full very quickly. No acute events reported overnight reassurance has been provided 05/20 Patient now on a full diet. He seems to be tolerating quite well and seems like his bowel function has returned almost to normal. We will continue to follow recommendations from our surgical supply assistant hopefully discharge within the next 48 hours 05/21 Patient tolerating diet well. As per surgical supply assistant will observe 1 more day and if he continues to do well he may be discharged in the a.m. No complaints during my visit in no acute events reported overnight 05/22 Patient evaluated bedside. He denies nausea or vomiting. He is having bowel movements. Patient is refusing nursing. He is currently breathing well on room air. Patient continues to improve may discharge home tomorrow. Vitals/I&O Vitals/I&O: Vital Signs Date Time Temp Pulse Resp B/P (MAP) Pulse Ox O2 Delivery O2 Flow Rate FiO2 05/22/20 14:39 97.6 69 22 145/64 (91) 96 Nasal Cannula 3.0 97.6 I & O 05/21/20 05/21/20 05/22/20 15:00 23:00 07:00 Intake Total 580 ml 260 ml 400 ml Output Total 505 ml 400 ml Balance 580 ml -245 ml 0 ml Physical Exam General: Alert, Oriented X3, Cooperative Heart: Regular rate, Other (tachy) Lungs: Clear Abdomen: Soft, Other (ND, lisha drain in place) Extremities: No clubbing, No cyanosis Skin: No rashes, No breakdown Review of Systems Review of Systems: Denies abdominal pain, denies nausea, denies vomiting, denies fever. Assessment and Plan Assessmemt and Plan Problems Medical Problems: (1) Abdominal pain Status: Acute (2) Sigmoid volvulus Status: Acute (3) Small bowel obstruction Status: Acute Comment Review of Relevant I have reviewed the following items ben (where applicable) has been applied. Justifications for Admission Other Justification JOSE A BURGOS MD May 22, 2020 16:55
[2020-05-22] MEDS: MULTIVITAMIN with MINERAL TABLET. PO SCH (17:16)
[2020-05-22] MEDS: ASCORBIC ACID 500 MG TABLET PO SCH (17:16)
[2020-05-22 19:31] VITALS: BP 146/70
[2020-05-22] MEDS: ATORVASTATIN CALCIUM 40 MG TABLET. PO SCH (20:45)
[2020-05-22 23:14] VITALS: BP 136/54
[2020-05-23 02:56] VITALS: BP 140/69
[2020-05-23] MEDS: PIPERACILLIN/TAZOBACTAM 3.375 GM in IV NORMAL SALINE 50ML 50 ML IV SCH ×2 (06:15→12:00)
[2020-05-23 07:00] VITALS: BP 127/57
[2020-05-23] MEDS: PANTOPRAZOLE 40 MG TABLET.DR. PO SCH (07:34)
[2020-05-23] MEDS: ASPIRIN ENTERIC COATED 81 MG TABLET.DR. PO SCH (08:51)
[2020-05-23] MEDS: METOPROLOL SUCC 24HR ER 100 MG TAB.ER.24H. PO SCH (09:00)
--- NOTE | 2020-05-23 09:11 | PDOC ---
Date of Service: DATE: 05/23/20 TIME: 09:09 Subjective: Subjective: Says eating and stooling, waiting for discharge. Objective: Vital Signs: Vital Signs Date Time Temp Pulse Resp B/P (MAP) Pulse Ox O2 Delivery O2 Flow Rate FiO2 05/23/20 07:41 Nasal Cannula 3.0 05/23/20 02:56 98.5 56 18 140/69 (92) 97 98.5 PE: GEN: NAD LUNGS: diminished, NC 3L HEART: RRR ABD: non-tender NEURO/PSYCH: A & O 3, flat A/P: Sigmoid volvulus s/p sigmoid resection -- Stable GI-gray. Discharge plans unclear. Justicifation of Admission Dx: Justifications for Admission: Justification of Admission Dx: Yes (SBO, VOLVULUS, HYPOKALEMIA) SABINA LOOMIS May 23, 2020 09:11
--- NOTE | 2020-05-23 09:39 | PDOC ---
SURGICAL PROGRESS NOTE DATE: 05/23/20 TIME: 09:38 Subjective doing well tolerating diet having stools Vital Signs Vital Signs Date Time Temp Pulse Resp B/P (MAP) Pulse Ox O2 Delivery O2 Flow Rate FiO2 05/23/20 07:41 Nasal Cannula 3.0 05/23/20 07:00 97.8 59 20 127/57 (80) 97 97.8 I&O Intake and Output 05/23/20 07:00 Intake Total 2100 ml Output Total 1275 ml Balance 825 ml Intake Oral 2100 ml Output Urine Total 1275 ml # Voids 2 # Bowel Movements 3 General: Alert, Oriented X3, Cooperative Abdomen: Soft, Other (incision c/d/i) Problem List Problems Medical Problems: (1) Abdominal pain Status: Acute (2) Sigmoid volvulus Status: Acute (3) Small bowel obstruction Status: Acute Assessment/Plan stable surgically Justicifation of Admission Dx: Justifications for Admission: Justification of Admission Dx: Yes (SBO, VOLVULUS, HYPOKALEMIA) KAYLI HOWARD APRN May 23, 2020 09:39
[2020-05-23] MEDS: LISINOPRIL 5 MG TABLET. PO SCH (09:43)
[2020-05-23] MEDS: MULTIVITAMIN with MINERAL TABLET. PO SCH (09:43)
[2020-05-23] MEDS: ASCORBIC ACID 500 MG TABLET PO SCH (09:43)
[2020-05-23] MEDS: APIXABAN 5 MG TABLET. PO SCH (09:43)
[2020-05-23] MEDS: LACTOBACILLUS RHAMNOSUS GG 1 CAPSULE. PO SCH (09:43)
--- NOTE | 2020-05-23 10:56 | NUR ---
VER[facility] following. Chart reviewed, discussed with RN. Per Masha (SS) note and RN, pt is declining all services upon discharge. Pt does not need oxygen as sats were fine when oxygen was removed by Art (RT). VERNON notified Dr. Hanna - he will discharge pt home with self care. Pt is a high risk readmission due to declining recommended services at discharge.
[2020-05-23 11:00] VITALS: BP 142/66
--- NOTE | 2020-05-23 11:15 | PDOC ---
[facility] PROGRESS NOTE Date of Service DOS: DATE: 05/23/20 TIME: 11:13 Chief Complaint Chief Complaint IMPRESSION Sigmoid volvulus, status post exploratory laparotomy and sigmoid colon resection Wall thickening of the rectum and sigmoid colon is consistent with a component of colitis. Ileus resolved PAFIB with RVR; remains in AFIB. 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 Appears compensated CAD; recent cath with 2-vessel disease. No lesions needing intervention noted PAD; s/p recent NEMATOLOGIST of the LSFA. Has MOLDING FITTER of the right SFA. No critical limb ischemia Recommendations from cardiology as follows: Continue Digoxin and metoprolol for rate control Resume Eliquis for stroke prophylaxis; okay per surgical team Secondary prevention; ASA, statin, BB therapy HF optimization with BB, ACEi Outpatient f/u of PAD with consideration of NEMATOLOGIST of the right SFA MOLDING FITTER Repeat echo on an outpatient basis to re-assess LV systolic function, assess need for AICD Supportive care Follow up in our office with Dr. Olmos as scheduled. Follow GI and general search engine optimization consultant recommendations, awaiting for better b owel function from the surgical consultation standpoint of view. Hopefully discharge soon Diet as per engagement quality consultant Maintenance fluids will be discontinued in light of his good oral intake Pain management Continue IV antibiotics and supportive care History of Present Illness History of Present Illness 05/12 Patient status post exploratory laparotomy and sigmoid colon resection, 05/12. He states his pain is well controlled. NG tube in place. Denies any fevers. Discussed with RN. 05/13 Patient post ex lap and sigmoid colon resection. Pain well controlled with pain pump. NG tube in place. He tolerated a popsicle today. Denies any fevers. 05/15 Pain remains well controlled. Tolerating popsicle and ice chips. NG tube in place, will removed today. Advance diet slowly. 05/16 No acute events reported overnight, case discussed with nursing staff patient in no acute distress no complaints during my visit. N.p.o. as per attending 05/17 Patient laying in bed in no acute distress. No acute events reported overnight, the patient had 2 bowel movements as per nursing staff. We are waiting for surgical manager to start diet, patient is wanting to have liquids and is feeling hungry. He is passing gases as well reassurance has been provided 05/18 No acute events reported overnight, case discussed with nursing staff patient in no acute distress no complaints during my visit unable to advance diet does not feel like eating but has been able to tolerate liquids 05/19 Patient has been tolerating liquids but he relates that it hard time today he feels like he is getting quite full very quickly. No acute events reported overnight reassurance has been provided 05/20 Patient now on a full diet. He seems to be tolerating quite well and seems like his bowel function has returned almost to normal. We will continue to follow recommendations from our surgical manager hopefully discharge within the next 48 hours 05/21 Patient tolerating diet well. As per surgical manager will observe 1 more day and if he continues to do well he may be discharged in the a.m. No complaints during my visit in no acute events reported overnight 05/22 Patient evaluated bedside. He denies nausea or vomiting. He is having bowel movements. Patient is refusing nursing. He is currently breathing well on room air. Patient continues to improve may discharge home tomorrow. 05/23 Patient evaluated bedside. He denies any shortness of breath, nausea, vomiting. He is still having bowel movements. He is refusing home health or skilled rehab. He was evaluated with 6-minute walk and does not have oxygen requirement. Discharged home with self-care today. Vitals/I&O Vitals/I&O: Vital Signs Date Time Temp Pulse Resp B/P (MAP) Pulse Ox O2 Delivery O2 Flow Rate FiO2 05/23/20 10:32 96 05/23/20 09:43 59 127/57 05/23/20 07:41 Nasal Cannula 3.0 05/23/20 07:00 97.8 20 97.8 I & O 05/22/20 05/22/20 05/23/20 15:00 23:00 07:00 Intake Total 580 ml 1220 ml 300 ml Output Total 625 ml 225 ml 425 ml Balance -45 ml 995 ml -125 ml Physical Exam General: Alert, Oriented X3, Cooperative Heart: Regular rate, Other (tachy) Lungs: Clear Abdomen: Soft, Other (incision c/d/i) Extremities: No clubbing, No cyanosis Skin: No rashes, No breakdown Review of Systems Review of Systems: Denies abdominal pain, denies fever, denies chest pain, denies shortness of breath. Assessment and Plan Assessmemt and Plan Problems Medical Problems: (1) Abdominal pain Status: Acute (2) Sigmoid volvulus Status: Acute (3) Small bowel obstruction Status: Acute Comment Review of Relevant I have reviewed the following items ben (where applicable) has been applied. Medications: Current Medications Medications (Trade) Dose Ordered Sig/Marcio Route PRN Reason Start Time Stop Time Status Last Admin Dose Admin Ascorbic Acid (Vitamin C) 500 mg DAILY PO 05/22/20 15:30 05/23/20 09:43 Multivitamins (Thera M Plus) 1 tab DAILY PO 05/22/20 15:30 05/23/20 09:43 Justifications for Admission Other Justification JOSE A BURGOS MD May 23, 2020 11:15
--- NOTE | 2020-05-23 12:31 | PDOC3 ---
Discharge Summary Visit Information Date of Admission: May 11, 2020 Date of Discharge: May 23, 2020 Final Diagnosis Problems Medical Problems: (1) Abdominal pain Status: Acute (2) Sigmoid volvulus Status: Acute (3) Small bowel obstruction Status: Acute Brief Hospital Course Allergies Allergies Coded Allergies Type Severity Reaction Last Updated Verified No Known Drug Allergies 05/11/20 No Vital Signs Vital Signs Date Time Temp Pulse Resp B/P (MAP) Pulse Ox O2 Delivery O2 Flow Rate FiO2 05/23/20 10:32 96 05/23/20 09:43 59 127/57 05/23/20 07:41 Nasal Cannula 3.0 05/23/20 07:00 97.8 20 97.8 Brief Hospital Course Mr. Kruger is a 74 old male who presented with sigmoid volvulus. Consultations were placed to general surgery and gastroenterology. He was treated with NG tube decompression. Patient had exploratory laparotomy and sigmoid colon resection on 05/12/2020. The duration of his hospital course was spent advancing his diet slowly and prophylactic IV antibiotics. Patient was recommended [facility] facility for rehab, or at the very least home health, but patient refused these modalities. He was tolerating his diet and having bowel movements without issue. He was stable for discharge home with self-care. Discharge Information Condition at Discharge: Improved Disposition/Orders: D/C to Home Scheduled Apixaban (Eliquis) 5 Mg Tablet, 5 MG PO BID for pvd for 30 Days, #60 Prescribed by: LAUREL GLASS MD on 08/31/19 1052 Last Action: Reviewed on 05/15/20 1209 by EROS DOLL Ascorbic Acid (Vitamin C) 500 Mg Tablet, 500 MG PO DAILY for supplement for 30 Days, #30 Prescribed by: LAUREL GLASS MD on 04/06/19 1627 Aspirin (Aspirin Ec) 81 Mg [facility]t.dr, [facility], #30 Prescribed by: LAUREL GLASS MD on 08/31/19 1052 Last Action: Continued on 05/15/20 1551 by RAMIRO LAGUERRE APRN Budesonide/Formoterol Fumarate (Symbicort 80-4.5 Mcg Inhaler) 10.2 Gm Hfa.aer. ad, 2 PUFF IH BID for COPD, #10.2 Ref 5 (Reported) Entered as Reported by: CHAPIS ROY RN on 03/13/19 1635 Digoxin (Digoxin) 125 Mcg Tablet, 125 MCG PO DAILY for heart for 30 Days, #30 Prescribed by: LAUREL GLASS MD on 08/31/19 1052 Last Action: Continued on 05/15/20 0545 by JANNIE PRINGLE Ipratropium/Albuterol Sulfate (Duoneb 0.5-3(2.5) Mg/3 Ml) 3 Ml Ampul.neb, 3 ML NEB RTQID for copd for 30 Days, #120 Prescribed by: LAUREL GLASS MD on 08/31/19 1052 Metoprolol Tartrate (Metoprolol Tartrate) 50 Mg Tablet, 1 TAB PO BID for hypertension, #60 Ref 5 (Reported) Entered as Reported by: ELIZA CHENG on 03/12/19 0335 Last Action: Continued on 05/15/20 0545 by JANNIE PRINGLE Multivits,Ca,Minerals/Iron/Fa (Thera-M Tablet) 1 Each Tablet, 1 TAB PO DAILY for supplement for 30 Days, #30 Prescribed by: LAUREL GLASS MD on 04/06/19 1627 Pantoprazole Sodium (Pantoprazole Sodium ) 40 Mg Tablet.dr, 40 MG PO DAILYAC for gi supplement for 30 Days, #30 Prescribed by: LAUREL GLASS MD on 04/06/19 1627 Potassium Chloride (Klor-Con M20) 20 Meq Tab.er.prt, 20 MEQ PO DAILYWBKFT for Hypokalemia for 30 Days, #30 Prescribed by: SHANI HALE MD on 03/16/19 1301 Scheduled PRN Acetaminophen (Acetaminophen) 500 Mg Tablet, 500 MG PO PRN Q6HRS PRN for MILD PAIN / TEMP for 30 Days, #60 Prescribed by: LAUREL GLASS MD on 08/31/19 1052 Bisacodyl (Bisacodyl) 5 Mg Tablet.dr, 5 MG PO PRN DAILY PRN for CONSTIPATION for 14 Days, #30 Prescribed by: LAUREL GLASS MD on 08/31/19 1052 Oxycodone/Apap 5-325 (Percocet 5-325 Mg Tablet ) 1 Each Tablet, 1 TAB PO PRN Q6HRS PRN for PAIN for 6 Days, #15 Ref 0 Prescribed by: SHANI HALE MD on 03/16/19 1301 Polyethylene Glycol 3350 (Polyethylene Glycol 3350) 17 Gm Powd.pack, 17 GM PO PRN DAILY PRN for constipation for 28 Days, #30 Prescribed by: LAUREL GLASS MD on 08/31/19 1052 Justicifation of Admission Dx: Justifications for Admission: Justification of Admission Dx: Yes (SBO, VOLVULUS, HYPOKALEMIA) JOSE A BURGOS MD May 23, 2020 12:31
--- NOTE | 2020-05-23 13:40 | NUR ---
Pt left unit by wheelchair via private vehicle with brother. Pt's IV removed without complication. Discharge paperwork and follow-up discussed with pt. Pt verbalizes understanding without further questions.
== END 2020-05-23 13:42 | disposition home or self-care (01) | DRG 329 ==
LOC: ER 17:36 → ED HOLD 20:51 → 5 NORTH 05-11 00:43 → 2 NORTH 05-15 10:44
PROVIDERS: ADMIT Family Medicine; ATTEND Family Medicine
PROC: 0D9N8ZZ Drainage of Sigmoid Colon, Via Natural or Artificial Opening Endoscopic (ICD-10-PCS; 2020-05-11)
PROC: 0D9670Z Drainage of Stomach with Drainage Device, Via Natural or Artificial Opening (ICD-10-PCS; 2020-05-11)
PROC: 0DJ60ZZ Inspection of Stomach, Open Approach (ICD-10-PCS; 2020-05-12)
PROC: 0DBN0ZZ Excision of Sigmoid Colon, Open Approach (ICD-10-PCS; principal; 2020-05-12 09:30)
DX: K56.2 Volvulus (principal); I50.23 Acute on chronic systolic (congestive) heart failure; I42.9 Cardiomyopathy, unspecified; F41.9 Anxiety disorder, unspecified; I25.10 Atherosclerotic heart disease of native coronary artery without angina pectoris; E78.00 Pure hypercholesterolemia, unspecified; I11.0 Hypertensive heart disease with heart failure; E05.90 Thyrotoxicosis, unspecified without thyrotoxic crisis or storm; F43.10 Post-traumatic stress disorder, unspecified; M16.12 Unilateral primary osteoarthritis, left hip; R16.1 Splenomegaly, not elsewhere classified; K52.9 Noninfective gastroenteritis and colitis, unspecified; E78.5 Hyperlipidemia, unspecified; J44.9 Chronic obstructive pulmonary disease, unspecified; I73.9 Peripheral vascular disease, unspecified; F17.210 Nicotine dependence, cigarettes, uncomplicated; D18.00 Hemangioma unspecified site; I25.5 Ischemic cardiomyopathy; E87.6 Hypokalemia; I50.82 Biventricular heart failure; I48.0 Paroxysmal atrial fibrillation; K66.0 Peritoneal adhesions (postprocedural) (postinfection); Z20.828 Contact with and (suspected) exposure to other viral communicable diseases; K56.7 Ileus, unspecified; Z79.01 Long term (current) use of anticoagulants; Z79.51 Long term (current) use of inhaled steroids; Z79.899 Other long term (current) drug therapy
CPT/HCPCS: 36415; 45330; 71045; 74018; 74177; 80048; 80051; 80053; 81001; 82962; 83605; 83690; 83735; 84439; 85025; 85610; 85730; 87426; 88307; 90471; 90686; 93005; 99285; A7015; C9113; J0330; J1100; J1160; J1170; J1644; J2060; J2270; J2370; J2405; J2543; J2704; J2795; J3010; J3475; J3480; J3490; J7030; J7120; Q9967; 97530-GP; G0378; U0003-CS

== ENCOUNTER 2020-08-09 19:42 | Inpatient (IN) | payer MEDICARE ==
[~2020-08-09] VITALS: Ht 172.7 cm; Wt 75.8 kg
--- NOTE | 2020-08-09 19:56 | PHYS DOC ---
Past Medical History Past Medical History: CAD, CHF, High Cholesterol, Hypertension, Hyperthyroid, MD Additional Past Medical Histor: PTSD Past Surgical History: Appendectomy, Tonsillectomy, Other Additional Past Surgical Histo: Exp. Lap Smoking Status: Current Every Day Smoker Alcohol Use: None Drug Use: None General Adult EDM: Chief Complaint: DYSPNEA/RESPIRATOY DISTRESS HPI: HPI: 75-year-old male with history of HTN, AF on eliquis, COPD, who p/w SOA over last 3-4 days. Had a brief transient episode of CP yesterday which resolved within minutes. No current CP. Reports baseline chronic cough as well. Ran out of lasix about a week ago. No fever, chills, abd pain, N/V/D. No aggravating or alleviating factors. Review of Systems: Review of Systems: Gen: No fever, chills. Eyes: No blurred vision, diplopia. ENT: No nasal congestion, sore throat. CV: No CP, palpitations. Resp. Reports SOB, cough. GI: No abd pain, N/V. : No dysuria, hematuria. Neuro: No CHANDLER, dizziness, weakness. MSK: No myalgia, arthralgia, back pain. Skin: No acute rash or lesion. Heart Score: Risk Factors: Risk Factors: DM, Current or recent (<one month) smoker, HTN, HLP, family history of CAD, obesity. Risk Scores: Score 0 - 3: 2.5% MACE over next 6 weeks - Discharge Home Score 4 - 6: 20.3% MACE over next 6 weeks - Admit for Clinical Observation Score 7 - 10: 72.7% MACE over next 6 weeks - Early Invasive Strategies Allergies: Allergies: Allergies Coded Allergies Type Severity Reaction Last Updated Verified No Known Drug Allergies 05/11/20 No Physical Exam: PE: Gen: NAD. Well nourished. Head: NC/AT. Eyes: No scleral icterus. No conjunctival injection. ENT: MMM. Posterior OP clear. Neck: Supple. NT. No JVD. CV: Tachycardic and regular at about 140.. Peripheral pulses intact. Resp: Faint rhonchi. No significant increased work of breathing. Abd: Soft. NT. ND. MSK: No peripheral cyanosis. Trace pedal edema. Bilateral lower extremity stasis dermatitis. Neuro: A&Ox3. Strength & sensation grossly intact throughout. Skin. Warm. Dry. No acute rash. Psych: Appropriate mood & affect. EKG: EKG: EKG at 1947. Suspected atrial flutter with RVR. Heart rate 149. Otherwise normal intervals. Nonspecific STT changes. No STEMI. Interpreted by me. Radiology/Procedures: Radiology/Procedures: XR ABDOMEN COMP ACUTE INDICATION: Reason: SOA, constipation / Spl. Instructions: / History: . COMPARISON STUDY: None. FINDINGS: Lungs: Normal lung volume. Prominent interstitial markings. Pleura: No pleural effusion or pneumothorax. Heart and Mediastinum: Cardiomegaly. Tortuosity of the thoracic aorta. Abdomen: No free air.. Nonobstructive bowel gas pattern. Moderate colonic stool. IMPRESSION: 1. Prominent interstitial markings, which may reflect interstitial edema. 2. Nonobstructive bowel gas pattern. Moderate colonic stool. Electronically signed by: Leonid Sepulveda MD (08/09/2020 9:53 PM) [facility] Course & Med Decision Making: Course & Med Decision Making Pertinent Labs and Imaging studies reviewed. (See chart for details) In summary, 75-year-old male with history of hypertension, atrial fibrillation, COPD who presents with a few days of dyspnea with transient chest pain yesterday, now resolved. Regular tachycardia upon presentation, otherwise stable hemodynamics. EKG shows what appears to be 2:1 atrial flutter with a rate of about 149. He received diltiazem 20 mg IV bolus with improvement, now around [id number], now on a diltiazem drip. Lab work thus far is notable for hypokalemia 2.6, normal magnesium. Trace elevated troponin with elevated BNP. Otherwise remains well-appearing and nontoxic. Given URI symptoms, COVID-19 swab obtained and pending. Will require admission. Dragon Disclaimer: [employer] Disclaimer: This electronic medical record was generated, in whole or in part, using a voice recognition dictation system. Departure Departure Impression: Primary Impression: Atrial fibrillation with rapid ventricular response Additional Impressions: Hypokalemia Elevated troponin Disposition: ADMITTED INPT THIS HOSP Admitting Physician: YUNIOR Condition: STABLE Referrals: UNKNOWN PCP NAME (PCP) VINNY LYON DO Aug 09, 2020 19:56
[2020-08-09] MEDS ORDERED: dilTIAZem IV PUSH 25 MG/5 ML VIAL IVP ONE (20:00)
[2020-08-09] MEDS ORDERED: IV NORMAL SALINE 500ML BAG 500 ML IV ONE (20:00)
[2020-08-09 20:32] LABS: BASO # 0.2 x10^3/uL (0.0-0.2); BASO % 3 % (0-3); EOS # 0.2 x10^3/uL (0.0-0.7); EOS % 2 % (0-3); HEMATOCRIT 37.6 % (39.0-53.0); HEMOGLOBIN 12.6 g/dL (13.0-17.5); LYMPH # 2.2 x10^3/uL (1.0-4.8); LYMPH % 23 % (24-48); MEAN CORPUSCULAR HEMOGLOBIN 29 pg (25-35); MEAN CORPUSCULAR HGB CONC 34 g/dL (31-37); MEAN CORPUSCULAR VOLUME 88 fL (79-100); MONO # 0.9 x10^3/uL (0.0-1.1); MONO % 9 % (0-9); NEUT % 63 % (31-73); PLATELET COUNT 199 x10^3/uL (140-400); RED BLOOD COUNT 4.29 x10^6/uL (4.30-5.70); RED CELL DISTRIBUTION WIDTH 15.6 % (11.5-14.5); WHITE BLOOD COUNT 9.5 x10^3/uL (4.0-11.0)
[2020-08-09 20:54] LABS: ALBUMIN 3.4 g/dL (3.4-5.0); ALBUMIN/GLOBULIN RATIO 0.9 (1.0-1.7); CREATININE 1.6 mg/dL (0.7-1.3); GFR 42.5; MAGNESIUM 2.3 mg/dL (1.8-2.4); TOTAL BILIRUBIN 2.9 mg/dL (0.2-1.0); TOTAL PROTEIN 7.2 g/dL (6.4-8.2)
[2020-08-09 20:59] LABS: POTASSIUM 2.6 mmol/L (3.5-5.1)
[2020-08-09] MEDS ORDERED: DILTIAZEM HCL 125 MG in IV NORMAL SALINE 100ML 100 ML IV PRN (21:00)
[2020-08-09] MEDS ORDERED: POTASSIUM CHLORIDE 20MEQ 100 ML IV ONE (21:30)
[2020-08-09] MEDS ORDERED: POTASSIUM CHLORIDE 20 MEQ TABLET.ER. PO ONE (21:30)
--- NOTE | 2020-08-09 21:55 | RAD ---
XR ABDOMEN COMP ACUTE INDICATION: Reason: SOA, constipation / Spl. Instructions: / History: . COMPARISON STUDY: None. FINDINGS: Lungs: Normal lung volume. Prominent interstitial markings. Pleura: No pleural effusion or pneumothorax. Heart and Mediastinum: Cardiomegaly. Tortuosity of the thoracic aorta. Abdomen: No free air.. Nonobstructive bowel gas pattern. Moderate colonic stool. IMPRESSION: 1. Prominent interstitial markings, which may reflect interstitial edema. 2. Nonobstructive bowel gas pattern. Moderate colonic stool. Electronically signed by: Leonid Sepulveda MD (08/09/2020 9:53 PM) [facility]IVE[facility]atan
[2020-08-09] MEDS: POTASSIUM CHLORIDE 10MEQ 100 ML IV SCH (22:09)
[2020-08-09] MEDS ORDERED: ACETAMINOPHEN 325 MG TABLET. PO PRN (22:15)
[2020-08-09] MEDS ORDERED: ONDANSETRON PF 4 MG/2 ML VIAL. IV PRN (22:15)
[2020-08-09 23:48] VITALS: BP 131/70
[2020-08-10] VITALS (14 sets, daily range): BP systolic 91–137; BP diastolic 48–91
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
[2020-08-10] MEDS: POTASSIUM CHLORIDE 10MEQ 100 ML IV SCH ×5 (00:43→15:24)
[2020-08-10] MEDS ORDERED: MORPHINE SULFATE 4 MG/ML VIAL. IV PRN (04:00)
--- NOTE | 2020-08-10 08:37 | PDOC1 ---
History and Physical Date of Service: DOS: DATE: 08/10/20 TIME: 08:32 Chief Complaint: Chief Complain: SOB History of Present Illness: HPI: 75-year-old male with history of HTN, AF on eliquis, COPD, who p/w SOA over last 3-4 days. Had a brief transient episode of CP yesterday which resolved within minutes. No current CP. Reports baseline chronic cough as well. Ran out of lasix about a week ago. No fever, chills, abd pain, N/V/D. No aggravating or alleviating factors. Past Medical/Surgical History: PMH/PSH: Past Medical History: CAD, CHF, High Cholesterol, Hypertension, Hyperthyroid, DE, PTSD Past Surgical History: Appendectomy, Tonsillectomy, Exp. Lap Allergies: Allergies: Coded Allergies: No Known Drug Allergies (Unverified , 05/11/20) Social History: Social History: Smoking Status: Current Every Day Smoker Alcohol Use: None Drug Use: None Current Medications: Current Medications Current Medications Diltiazem HCl (Cardizem Iv Push) 20 mg 1X ONCE IVP Last administered on 08/09/20at 20:26; Start 08/09/20 at 20:00; Stop 08/09/20 at 20:03; Status DC Sodium Chloride 500 ml @ 500 mls/hr 1X ONCE IV Last administered on 08/09/20at 20:19; Start 08/09/20 at 20:00; Stop 08/09/20 at 20:59; Status DC Diltiazem HCl 125 mg/Sodium Chloride 125 ml @ 5 mls/hr CONT PRN IV SEE I/O RECORD Last administered on 08/09/20at 21:06; Start 08/09/20 at 21:00 Potassium Chloride (Klor-Con) 40 meq 1X ONCE PO ; Start 08/09/20 at 21:30; Stop 08/09/20 at 21:31; Status DC Potassium Chloride/Water 100 ml @ 50 mls/hr 1X ONCE IV ; Start 08/09/20 at 21:30; Stop 08/09/20 at 23:29; Status UNV Potassium Chloride/Water 100 ml @ 100 mls/hr Q1H IV Last administered on 08/10/20at 00:43; Start 08/09/20 at 22:00; Stop 08/09/20 at 23:59; Status DC Ondansetron HCl (Zofran) 4 mg PRN Q8HRS PRN IV NAUSEA/VOMITING 1ST CHOICE; Start 08/09/20 at 22:15; Stop 08/10/20 at 22:14 Acetaminophen (Tylenol) 650 mg PRN Q4HRS PRN PO FEVER > 100.3'F; Start 08/09/20 at 22:15; Stop 08/10/20 at 22:14 Active Scripts Active Polyethylene Glycol 3350 17 Gm Powd.pack 17 Gm PO PRN DAILY PRN 28 Days Bisacodyl 5 Mg Tablet. 5 Mg PO PRN DAILY PRN 14 Days Acetaminophen 500 Mg Tablet 500 Mg PO PRN Q6HRS PRN 30 Days Aspirin Ec (Aspirin) 81 Mg Tablet. 81 Mg PO DAILYWBKFT 30 Days Digoxin 125 Mcg Tablet 125 Mcg PO DAILY 30 Days Eliquis (Apixaban) 5 Mg Tablet 5 Mg PO BID 30 Days Duoneb 0.5-3(2.5) Mg/3 Ml (Albuterol/Ipratropium) 3 Ml Ampul.neb 3 Ml NEB RTQID 30 Days Vitamin C (Ascorbic Acid) 500 Mg Tablet 500 Mg PO DAILY 30 Days Thera-M Tablet (Multivits,Ca,Minerals/Iron/Fa) 1 Each Tablet 1 Tab PO DAILY 30 Days Pantoprazole Sodium (Pantoprazole Sodium) 40 Mg Tablet. 40 Mg PO DAILYAC 30 Days Klor-Con M20 (Potassium Chloride) 20 Meq Tab.er.prt 20 Meq PO DAILYWBKFT 30 Days Percocet 5-325 Mg Tablet (Oxycodone/Acetaminophen) 1 Each Tablet 1 Tab PO PRN Q6HRS PRN 6 Days Reported Symbicort 80-4.5 Mcg Inhaler (Budesonide/Formoterol Fumarate) 10.2 Gm Hfa.aer.ad 2 Puff IH BID Metoprolol Tartrate 50 Mg Tablet 1 Tab PO BID ROS: Review of Systems Review of System REVIEW OF SYSTEMS: GENERAL: Denies weakness SKIN: No bruising, hair changes or rashes. EYES: No blurred, double or loss of vision. NOSE AND THROAT: No history of nosebleeds, hoarseness or sore throat. HEART: No history of palpitations, chest pain or shortness of breath on exertion. LUNGS: Denies cough, hemoptysis, wheezing or shortness of breath. GASTROINTESTINAL: Denies changes in appetite, nausea, vomiting, diarrhea or constipation. GENITOURINARY: No history of frequency, urgency, hesitancy or nocturia. NEUROLOGIC: Denies history of numbness, tingling, or tremor. PSYCHIATRIC: No history of panic, anxiety or depression. ENDOCRINE: No history of heat or cold intolerance, polyuria or polydipsia. EXTREMITIES: Denies joint pain, pain on walking or stiffness. Physical Exam: Vital Signs: Vital Signs Date Time Temp Pulse Resp B/P (MAP) Pulse Ox O2 Delivery O2 Flow Rate FiO2 08/10/20 03:43 150 115/91 (99) 08/10/20 02:01 97.6 20 100 Nasal Cannula 2.0 97.6 Physcial Exam: GEN: No apparent distress. Alert and oriented HEENT: Normal cephalic, atraumatic, external auditory canals are patent EYES: Extraocular muscles are intact, pupil are equally round and reactive to light and accommodation MUSCULOSKELETAL: Well developed , well nourished, good range of motion ENDOCRINE: No thyromegaly was palpated LYMPHATICS: No cervical chain or axillary nodes were noted HEMATOPOIETIC: No bruising NECK: Supple, no JVD, no thyromegaly was noted LUNGS: Clear to auscultation in all lung lorenzo without rhonchi or wheezing HEART: RRR, S!, S2 present. Peripheral pulses intact, no obvious murmurs noted ABDOMEN: Soft, nontender. Positive bowel sounds, no organomegaly, normal bowel sounds EXTREMITIES: Without clubbing, cyanosis, or edema. Pedal pulses intact. Negative Homans sign NEUROLOGIC: Normal speech and tone. A&O x 3, moves all extremities, no obvious focal deficits PSYCHIATRIC: Normal affect, normal mood. Stable SKIN: No ulcerations or rashes, good skin turgor, no jaundice VASCULAR: Good capillary refill, neurovascular bundle appears to be intact Labs: Labs: Laboratory Tests Test 08/09/20 20:15 08/10/20 02:40 White Blood Count 9.5 x10^3/uL (4.0-11.0) Red Blood Count 4.29 x10^6/uL (4.30-5.70) Hemoglobin 12.6 g/dL (13.0-17.5) Hematocrit 37.6 % (39.0-53.0) Mean Corpuscular Volume 88 fL (79-100) Mean Corpuscular Hemoglobin 29 pg (25-35) Mean Corpuscular Hemoglobin Concent 34 g/dL (31-37) Red Cell Distribution Width 15.6 % (11.5-14.5) Platelet Count 199 x10^3/uL (140-400) Neutrophils (%) (Auto) 63 % (31-73) Lymphocytes (%) (Auto) 23 % (24-48) Monocytes (%) (Auto) 9 % (0-9) Eosinophils (%) (Auto) 2 % (0-3) Basophils (%) (Auto) 3 % (0-3) Neutrophils # (Auto) 6.0 x10^3/uL (1.8-7.7) Lymphocytes # (Auto) 2.2 x10^3/uL (1.0-4.8) Monocytes # (Auto) 0.9 x10^3/uL (0.0-1.1) Eosinophils # (Auto) 0.2 x10^3/uL (0.0-0.7) Basophils # (Auto) 0.2 x10^3/uL (0.0-0.2) Sodium Level 140 mmol/L (136-145) Potassium Level 2.6 mmol/L (3.5-5.1) Chloride Level 101 mmol/L (98-107) Carbon Dioxide Level 28 mmol/L (21-32) Anion Gap 11 (6-14) Blood Urea Nitrogen 21 mg/dL (8-26) Creatinine 1.6 mg/dL (0.7-1.3) Estimated GFR (Cockcroft-Gault) 42.5 BUN/Creatinine Ratio 13 (6-20) Glucose Level 122 mg/dL (70-99) Calcium Level 9.0 mg/dL (8.5-10.1) Magnesium Level 2.3 mg/dL (1.8-2.4) Total Bilirubin 2.9 mg/dL (0.2-1.0) Aspartate Amino Transf (AST/SGOT) 157 U/L (15-37) Alanine Aminotransferase (ALT/SGPT) 166 U/L (16-63) Alkaline Phosphatase 336 U/L (46-116) Troponin I Quantitative 0.067 ng/mL (0.000-0.055) 0.064 ng/mL (0.000-0.055) VY-Ezi-D-Type Natriuretic Peptide 6883 pg/mL (0-124) Total Protein 7.2 g/dL (6.4-8.2) Albumin 3.4 g/dL (3.4-5.0) Albumin/Globulin Ratio 0.9 (1.0-1.7) Laboratory Tests Test 08/09/20 20:15 08/10/20 02:40 White Blood Count 9.5 x10^3/uL (4.0-11.0) Red Blood Count 4.29 x10^6/uL (4.30-5.70) Hemoglobin 12.6 g/dL (13.0-17.5) Hematocrit 37.6 % (39.0-53.0) Mean Corpuscular Volume 88 fL (79-100) Mean Corpuscular Hemoglobin 29 pg (25-35) Mean Corpuscular Hemoglobin Concent 34 g/dL (31-37) Red Cell Distribution Width 15.6 % (11.5-14.5) Platelet Count 199 x10^3/uL (140-400) Neutrophils (%) (Auto) 63 % (31-73) Lymphocytes (%) (Auto) 23 % (24-48) Monocytes (%) (Auto) 9 % (0-9) Eosinophils (%) (Auto) 2 % (0-3) Basophils (%) (Auto) 3 % (0-3) Neutrophils # (Auto) 6.0 x10^3/uL (1.8-7.7) Lymphocytes # (Auto) 2.2 x10^3/uL (1.0-4.8) Monocytes # (Auto) 0.9 x10^3/uL (0.0-1.1) Eosinophils # (Auto) 0.2 x10^3/uL (0.0-0.7) Basophils # (Auto) 0.2 x10^3/uL (0.0-0.2) Sodium Level 140 mmol/L (136-145) Potassium Level 2.6 mmol/L (3.5-5.1) Chloride Level 101 mmol/L (98-107) Carbon Dioxide Level 28 mmol/L (21-32) Anion Gap 11 (6-14) Blood Urea Nitrogen 21 mg/dL (8-26) Creatinine 1.6 mg/dL (0.7-1.3) Estimated GFR (Cockcroft-Gault) 42.5 BUN/Creatinine Ratio 13 (6-20) Glucose Level 122 mg/dL (70-99) Calcium Level 9.0 mg/dL (8.5-10.1) Magnesium Level 2.3 mg/dL (1.8-2.4) Total Bilirubin 2.9 mg/dL (0.2-1.0) Aspartate Amino Transf (AST/SGOT) 157 U/L (15-37) Alanine Aminotransferase (ALT/SGPT) 166 U/L (16-63) Alkaline Phosphatase 336 U/L (46-116) Troponin I Quantitative 0.067 ng/mL (0.000-0.055) 0.064 ng/mL (0.000-0.055) SF-Pwy-Y-Type Natriuretic Peptide 6883 pg/mL (0-124) Total Protein 7.2 g/dL (6.4-8.2) Albumin 3.4 g/dL (3.4-5.0) Albumin/Globulin Ratio 0.9 (1.0-1.7) Images: Images KUB IMPRESSION: 1. Prominent interstitial markings, which may reflect interstitial edema. 2. Nonobstructive bowel gas pattern. Moderate colonic stool. Assessment/Plan Assessment/Plan Acute hypoxic respiratory distress due to acute on chronic systolic CHF, LVEF of 30 to 35% Paroxysmal AFIB with RVR Troponinemia likely due to demand ischemia Cardiomyopathy; LVEF 30-35%. CAD; recent cath with 2-vessel disease PAD JOE due to vasomotor nephropathy Hypokalemia Hyperthyroidism, undiagnosed Admit to medicine for further management Cardiology consult Daily diuresis Strict I's and O's Electrolyte replacement IV as needed We will start 10 mg methimazole today. Continue telemetry monitoring Eliquis for DVT prophylaxis Protonix GI prophylaxis Cardiac diet Full code Discussed with RN and SW Disposition inpatient management as above Surrogate decision maker is the Justifications for Admission Other Justification IVET WINN MD Aug 10, 2020 08:37
[2020-08-10] MEDS ORDERED: SENNOSIDES 8.6 MG TABLET PO PRN (08:45)
[2020-08-10] MEDS ORDERED: DOCUSATE SODIUM 100 MG CAPSULE. PO PRN (08:45)
[2020-08-10] MEDS ORDERED: POLYETHYLENE GLYCOL 3350 17 GM PACKET. PO PRN (08:45)
[2020-08-10] MEDS ORDERED: ACETAMINOPHEN 325 MG TABLET. PO PRN (08:45)
[2020-08-10] MEDS ORDERED: DEXTROSE 50% 25 GM / 50ML DISP.SYRIN. IV PRN (08:45)
[2020-08-10] MEDS ORDERED: ONDANSETRON PF 4 MG/2 ML VIAL. IVP PRN (08:45)
[2020-08-10] MEDS: ASPIRIN ENTERIC COATED 81 MG TABLET.DR. PO SCH (09:11)
[2020-08-10] MEDS: ASCORBIC ACID 500 MG TABLET PO SCH (09:11)
[2020-08-10] MEDS: METOPROLOL TART IMMED RELEASE 50 MG TABLET. PO SCH ×2 (09:11→21:19)
[2020-08-10 09:26] LABS: CALCIUM 8.6 mg/dL (8.5-10.1); CREATININE 1.5 mg/dL (0.7-1.3); GFR 45.7; MAGNESIUM 2.2 mg/dL (1.8-2.4)
[2020-08-10] MEDS: DIGOXIN 125 MCG TABLET. PO SCH (09:39)
[2020-08-10] MEDS: APIXABAN 5 MG TABLET. PO SCH ×2 (09:39→21:19)
[2020-08-10 09:41] LABS: BASO # 0.2 x10^3/uL (0.0-0.2); BASO % 2 % (0-3); EOS # 0.1 x10^3/uL (0.0-0.7); EOS % 1 % (0-3); HEMATOCRIT 36.8 % (39.0-53.0); HEMOGLOBIN 12.2 g/dL (13.0-17.5); LYMPH # 2.1 x10^3/uL (1.0-4.8); LYMPH % 19 % (24-48); MEAN CORPUSCULAR HEMOGLOBIN 29 pg (25-35); MEAN CORPUSCULAR HGB CONC 33 g/dL (31-37); MEAN CORPUSCULAR VOLUME 87 fL (79-100); MONO # 1.1 x10^3/uL (0.0-1.1); MONO % 10 % (0-9); NEUT # 7.5 x10^3/uL (1.8-7.7); NEUT % 68 % (31-73); PLATELET COUNT 186 x10^3/uL (140-400); RED BLOOD COUNT 4.22 x10^6/uL (4.30-5.70); RED CELL DISTRIBUTION WIDTH 15.7 % (11.5-14.5)
[2020-08-10 09:42] LABS: CHOLESTEROL/HDL RATIO 8.8; POTASSIUM 2.6 mmol/L (3.5-5.1)
[2020-08-10] MEDS ORDERED: POTASSIUM CHLORIDE 10MEQ 100 ML IV SCH (09:45)
[2020-08-10] MEDS ORDERED: ELECTROLYTE (NON-ICU) PROTOCOL. MC PRN (10:00)
--- NOTE | 2020-08-10 10:28 | PDOC2 ---
CARDIAC CONSULT DATE OF CONSULT Date of Consult DATE: 08/10/20 TIME: 10:12 REASON FOR CONSULT Reason for Consult: AFIB with RVR REFERRING PHYSICIAN Referring Physician: Dr. Peterson SOURCE Source: Chart review, Patient HISTORY OF PRESENT ILLNESS HISTORY OF PRESENT ILLNESS This is a 75 yo male who presented secondary to shortness of breath. Has been increasingly short of breath over the last 4-5 days. Denies any chest pain, palpitations, dizziness, or nausea/vomiting. Has been out of Lasix for the last 4 days. Reports compliance with Digoxin and metoprolol. Noted in AFIB with RVR, which prompted this consult. Unfortunately, has failed to follow up in our outpatient clinic. PAST MEDICAL HISTORY Past Medical History Cardiovascular: CAD, HTN, Hyperlipidemia, AFIB, PAD Pulmonary: COPD CENTRAL NERVOUS SYSTEM: Other (No pertinent history) GI: Other (small hiatal hernia) Heme/Onc: No pertinent hx Hepatobiliary: No pertinent hx Psych: Anxiety, Other (PTSD) Musculoskeletal: Osteoarthritis Rheumatologic: No pertinent hx Infectious disease: No pertinent hx, Other (C-diff) ENT: No pertinent hx Renal/: No pertinent hx Endocrine: No pertinent hx Dermatology: Other (venous dermatitis) PAST SURGICAL HISTORY Past Surgical History Appendectomy, Tonsillectomy, Other (PCI/stent) FAMILY HISTORY Family History: Heart Disease SOCIAL HISTORY Social History Smoke: 1 pack per day ALCOHOL: none Drugs: None Lives: Alone CURRENT MEDICATIONS CURRENT MEDICATIONS Current Medications Medications (Trade) Dose Ordered Sig/Marcio Route PRN Reason Start Time Stop Time Status Last Admin Dose Admin Diltiazem HCl (Cardizem Iv Push) 20 mg 1X ONCE IVP 08/09/20 20:00 08/09/20 20:03 DC 08/09/20 20:26 Sodium Chloride 500 ml @ 500 mls/hr 1X ONCE IV 08/09/20 20:00 08/09/20 20:59 DC 08/09/20 20:19 Diltiazem HCl 125 mg/Sodium Chloride 125 ml @ 5 mls/hr CONT PRN IV SEE I/O RECORD 08/09/20 21:00 08/09/20 21:06 Potassium Chloride/Water 100 ml @ 100 mls/hr Q1H IV 08/09/20 22:00 08/09/20 23:59 DC 08/10/20 00:43 Apixaban (Eliquis) 5 mg BID PO 08/10/20 09:00 08/10/20 09:39 Ascorbic Acid (Vitamin C) 500 mg DAILY PO 08/10/20 09:00 08/10/20 09:11 Aspirin (Ecotrin) 81 mg DAILYWBKFT PO 08/10/20 09:00 08/10/20 09:11 Digoxin (Lanoxin) 125 mcg DAILY PO 08/10/20 09:00 08/10/20 09:39 Metoprolol Tartrate (Lopressor) 50 mg BID PO 08/10/20 09:00 08/10/20 09:11 ALLERGIES ALLERGIES: Coded Allergies: No Known Drug Allergies (Unverified , 05/11/20) ROS Review of System 14 point ROS conducted with pertinent positives noted above in HPI PHYSICAL EXAM PHYSICAL EXAM General: Alert, Oriented X3, Cooperative, No acute distress HEENT: Atraumatic, Mucous membr. moist/pink Lungs: crackles Heart: Other (AFIB with RVR) Abdomen: Soft, No tenderness Extremities: No cyanosis, No edema. Ext warm to touch. 2+ left DP pulse. No opens wounds Neuro: Normal speech, Sensation intact Psych/Mental Status: Mental status NL, Mood NL MUSCULOSKELETAL: Osteoarthritic changes both hands VITALS/I&O VITALS/I&O: Vital Signs Date Time Temp Pulse Resp B/P (MAP) Pulse Ox O2 Delivery O2 Flow Rate FiO2 08/10/20 09:39 129 111/79 08/10/20 07:00 97.4 20 93 Nasal Cannula 2.0 97.4 I & O 08/09/20 08/09/20 08/10/20 15:00 23:00 07:00 Intake Total 500 ml 1035 ml Output Total 500 ml Balance 500 ml 535 ml LABS Lab: Laboratory Tests Test 08/09/20 20:15 08/10/20 02:40 08/10/20 07:40 White Blood Count 9.5 x10^3/uL (4.0-11.0) 11.0 x10^3/uL (4.0-11.0) Red Blood Count 4.29 x10^6/uL (4.30-5.70) L 4.22 x10^6/uL (4.30-5.70) L Hemoglobin 12.6 g/dL (13.0-17.5) L 12.2 g/dL (13.0-17.5) L Hematocrit 37.6 % (39.0-53.0) L 36.8 % (39.0-53.0) L Mean Corpuscular Volume 88 fL (79-100) 87 fL (79-100) Mean Corpuscular Hemoglobin 29 pg (25-35) 29 pg (25-35) Mean Corpuscular Hemoglobin Concent 34 g/dL (31-37) 33 g/dL (31-37) Red Cell Distribution Width 15.6 % (11.5-14.5) H 15.7 % (11.5-14.5) H Platelet Count 199 x10^3/uL (140-400) 186 x10^3/uL (140-400) Neutrophils (%) (Auto) 63 % (31-73) 68 % (31-73) Lymphocytes (%) (Auto) 23 % (24-48) L 19 % (24-48) L Monocytes (%) (Auto) 9 % (0-9) 10 % (0-9) H Eosinophils (%) (Auto) 2 % (0-3) 1 % (0-3) Basophils (%) (Auto) 3 % (0-3) 2 % (0-3) Neutrophils # (Auto) 6.0 x10^3/uL (1.8-7.7) 7.5 x10^3/uL (1.8-7.7) Lymphocytes # (Auto) 2.2 x10^3/uL (1.0-4.8) 2.1 x10^3/uL (1.0-4.8) Monocytes # (Auto) 0.9 x10^3/uL (0.0-1.1) 1.1 x10^3/uL (0.0-1.1) Eosinophils # (Auto) 0.2 x10^3/uL (0.0-0.7) 0.1 x10^3/uL (0.0-0.7) Basophils # (Auto) 0.2 x10^3/uL (0.0-0.2) 0.2 x10^3/uL (0.0-0.2) Sodium Level 140 mmol/L (136-145) 141 mmol/L (136-145) Potassium Level 2.6 mmol/L (3.5-5.1) *L 2.6 mmol/L (3.5-5.1) *L Chloride Level 101 mmol/L (98-107) 102 mmol/L (98-107) Carbon Dioxide Level 28 mmol/L (21-32) 27 mmol/L (21-32) Anion Gap 11 (6-14) 12 (6-14) Blood Urea Nitrogen 21 mg/dL (8-26) 19 mg/dL (8-26) Creatinine 1.6 mg/dL (0.7-1.3) H 1.5 mg/dL (0.7-1.3) H Estimated GFR (Cockcroft-Gault) 42.5 45.7 BUN/Creatinine Ratio 13 (6-20) Glucose Level 122 mg/dL (70-99) H 133 mg/dL (70-99) H Calcium Level 9.0 mg/dL (8.5-10.1) 8.6 mg/dL (8.5-10.1) Magnesium Level 2.3 mg/dL (1.8-2.4) 2.2 mg/dL (1.8-2.4) Total Bilirubin 2.9 mg/dL (0.2-1.0) H Aspartate Amino Transferase (AST) 157 U/L (15-37) H Alanine Aminotransferase (ALT) 166 U/L (16-63) H Alkaline Phosphatase 336 U/L (46-116) H Troponin I Quantitative 0.067 ng/mL (0.000-0.055) 0.064 ng/mL (0.000-0.055) 0.067 ng/mL (0.000-0.055) ZP-[id number]-P-Type Natriuretic Peptide 6883 pg/mL (0-124) H Total Protein 7.2 g/dL (6.4-8.2) Albumin 3.4 g/dL (3.4-5.0) Albumin/Globulin Ratio 0.9 (1.0-1.7) L Triglycerides Level 72 mg/dL (0-150) Cholesterol Level 114 mg/dL (0-200) LDL Cholesterol, Calculated 87 mg/dL (0-100) VLDL Cholesterol, Calculated 14 mg/dL (0-40) Non-HDL Cholesterol Calculated 101 mg/dL (0-129) HDL Cholesterol 13 mg/dL (40-60) L Cholesterol/HDL Ratio 8.8 Thyroid Stimulating Hormone (TSH) 0.010 uIU/mL (0.358-3.74) L Laboratory Tests 08/09/20 20:15 08/10/20 07:40 Laboratory Tests 08/09/20 20:15 08/10/20 07:40 ECHOCARDIOGRAM ECHOCARDIOGRAM <Conclusion> Technically difficult study. The left ventricle is normal size. The systolic function is moderately impaired. The Ejection Fraction is estimated at 30-35%. There is global hypokinesis of the left ventricle. There is borderline to mild concentric left ventricular hypertrophy. Doppler and Color Flow revealed no significant aortic regurgitation. There is no significant aortic valvular stenosis. Doppler and Color-flow revealed trace mitral regurgitation. Doppler and Color Flow revealed trace tricuspid regurgitation with an estimated PAP of 36 mmHg. DATE: 08/26/19 1727 HEART CATH HEART CATH Conclusion 1. Severe biventricular failure. 2. Severe secondary pulmonary HTN 3. Low cardiac output. 4. Two vessel CAD (no critical lesions for intervention) 5. Severe PAD. RSFA occlusion and LSFA with 70% stenosis 6. Successful CHIEF GAUGER of the LSFA with a 5.0/40 DCB with excellent 3 vessel run-off to the foot. Recommendations Consider staged PVI of the right leg in 2 weeks depending on wound healing Start milrinone gtt and aggressive diuresis. DATE: 08/27/19 1343 ASSESSMENT/PLAN ASSESSMENT/PLAN 1. Acute respiratory failure secondary to a/c CHF 2. Acute on chronic systolic CHF; ran out of lasix 3. PAFIB with RVR; On Cardizem gtt. Rate better controlled 4. Mild troponin elevation; peak 0.067 5. Cardiomyopathy; LVEF 30-35%. 6. CAD; recent cath with 2-vessel disease. No lesions needing intervention noted 7. PAD; s/p recent CHIEF GAUGER of the LSFA. Has DIRECTOR QUALITY ASSURANCE of the right SFA. No critical limb ischemia. Has failed outpatient clinic followup 8. JOE 9. Hypokalemia; replaced 10. Transaminitis 11. Hyperthyroidism Recommendations Diuresis with monitoring of labs Given additional potassium. Recheck K this afternoon Resume Digoxin and metoprolol for rate control. Titrate off Cardizem as able Convert metoprolol to succinate Check Dig level Resume Eliquis for stroke prophylaxis Secondary prevention; ASA. add statin Will hold off on ACEi with JOE for now Echo to assess LV systolic function Outpatient f/u of PAD with consideration of CHIEF GAUGER of the right SFA DIRECTOR QUALITY ASSURANCE. Discussed importance of compliance and followup. Supportive care RAMIRO LAGUERRE APRN Aug 10, 2020 10:28
[2020-08-10] MEDS: PANTOPRAZOLE 40 MG TABLET.DR. PO SCH (11:54)
[2020-08-10] MEDS ORDERED: FURO20TA3 PO (12:05)
[2020-08-10] MEDS ORDERED: SPIR25TA5 PO (12:05)
[2020-08-10] MEDS ORDERED: FUROSEMIDE 40 MG/4 ML VIAL. IVP ONE (12:15)
[2020-08-10] MEDS ORDERED: POTASSIUM BICARB 20 MEQ EFFERVESCENT TABLET. PO ONE (12:30)
[2020-08-10] MEDS: methIMAzole 10 MG TABLET PO SCH (15:24)
[2020-08-10] MEDS ORDERED: ANTI-COAG MONITOR BY PHARMACY. MC PRN (17:15)
[2020-08-10 17:33] LABS: DIG < 0.2 ng/mL (0.9-2.0)
[2020-08-10] MEDS ORDERED: ATORVASTATIN CALCIUM 40 MG TABLET. PO SCH (21:00)
[2020-08-11] VITALS (8 sets, daily range): BP systolic 78–115; BP diastolic 41–55
[2020-08-11 08:05] LABS: BASO % 0 % (0-3); EOS % 0 % (0-3); HEMATOCRIT 39.4 % (39.0-53.0); HEMOGLOBIN 12.5 g/dL (13.0-17.5); LYMPH # 1.9 x10^3/uL (1.0-4.8); LYMPH % 9 % (24-48); MEAN CORPUSCULAR HEMOGLOBIN 29 pg (25-35); MEAN CORPUSCULAR HGB CONC 32 g/dL (31-37); MEAN CORPUSCULAR VOLUME 91 fL (79-100); MONO % 5 % (0-9); NEUT # 17.2 x10^3/uL (1.8-7.7); NEUT % 86 % (31-73); PLATELET COUNT 175 x10^3/uL (140-400); RED BLOOD COUNT 4.34 x10^6/uL (4.30-5.70); RED CELL DISTRIBUTION WIDTH 15.8 % (11.5-14.5); WHITE BLOOD COUNT 20.1 x10^3/uL (4.0-11.0)
[2020-08-11] MEDS: ASPIRIN ENTERIC COATED 81 MG TABLET.DR. PO SCH (08:29)
[2020-08-11] MEDS: APIXABAN 5 MG TABLET. PO SCH (08:29)
[2020-08-11] MEDS: methIMAzole 10 MG TABLET PO SCH (08:29)
[2020-08-11] MEDS: PANTOPRAZOLE 40 MG TABLET.DR. PO SCH (08:30)
[2020-08-11] MEDS: DIGOXIN 125 MCG TABLET. PO SCH (08:30)
[2020-08-11] MEDS: ASCORBIC ACID 500 MG TABLET PO SCH (08:30)
[2020-08-11] MEDS ORDERED: PERFLUTREN PROTEIN-A MICROSPHR 0.22 MG/ML 3 ML VIAL. IV ONE ×2 (08:30→09:00)
[2020-08-11 08:58] LABS: CALCIUM 8.5 mg/dL (8.5-10.1); CREATININE 3.1 mg/dL (0.7-1.3); GFR 19.8; MAGNESIUM 2.4 mg/dL (1.8-2.4); PHOSPHORUS 7.1 mg/dL (2.6-4.7)
[2020-08-11] MEDS ORDERED: SPIRONOLACTONE 25 MG TABLET PO SCH (09:00)
[2020-08-11] MEDS ORDERED: METOPROLOL SUCC 24HR ER 100 MG TAB.ER.24H. PO SCH (09:00)
[2020-08-11 09:38] LABS: % BANDS 12 % (0-9); % LYMPHS 7 % (24-48); % METAS 1 % (0-0); % MONOS 3 % (0-10); % SEGS 77 % (35-66)
[2020-08-11 09:39] LABS: ANISOCYTOSIS SLIGHT; PLT ESTIMATE ADEQUATE (ADEQUATE)
--- NOTE | 2020-08-11 10:33 | PDOC ---
PROGRESS NOTES Date of Service: DATE: 08/11/20 TIME: 10:33 Chief Complaint Chief Complaint Images: Images KUB IMPRESSION: 1. Prominent interstitial markings, which may reflect interstitial edema. 2. Nonobstructive bowel gas pattern. Moderate colonic stool. impression Assessment/Plan Acute hypoxic respiratory distress due to acute on chronic systolic CHF, LVEF of 30 to 35% Paroxysmal AFIB with RVR Troponinemia likely due to demand ischemia Cardiomyopathy; LVEF 30-35%. CAD; recent cath with 2-vessel disease PAD JOE due to vasomotor nephropathy Hypokalemia Hyperthyroidism, undiagnosed plan Admit to medicine cvc bed Cardiology consult Daily diuresis Strict I's and O's Electrolyte replacement IV as needed We will start 10 mg methimazole Continue cvc bed Eliquis for DVT prophylaxis Protonix GI prophylaxis Cardiac diet Full code Discussed with RN and SW Disposition inpatient management as above Surrogate decision maker is the stop digoxin and aldactone for now. Restart toprol but will decrease dosing. Stop cardizem. Justifications for Admission Justifications for Admission Other Justification History of Present Illness History of Present Illness History of Present Illness: HPI: 75-year-old male with history of HTN, AF on eliquis, COPD, who p/w SOA over last 3-4 days. Had a brief transient episode of CP yesterday which resolved within minutes. No current CP. Reports baseline chronic cough as well. Ran out of lasix about a week ago. No fever, chills, abd pain, N/V/D. No aggravating or alleviating factors. Past Medical/Surgical History: PMH/PSH: Past Medical History: CAD, CHF, High Cholesterol, Hypertension, Hyperthyroid, [place], PTSD Past Surgical History: Appendectomy, Tonsillectomy, Exp. Lap Allergies: Allergies: Coded Allergies: No Known Drug Allergies (Unverified , 05/11/20) Social History: Social History: Smoking Status: Current Every Day Smoker Alcohol Use: None Drug Use: None Vitals Vitals Vital Signs Date Time Temp Pulse Resp B/P (MAP) Pulse Ox O2 Delivery O2 Flow Rate FiO2 08/11/20 08:30 84 95/55 08/11/20 07:00 97.7 25 97 Nasal Cannula 2.0 97.7 Physical Exam Physical Exam Physcial Exam: GEN: No apparent distress. Alert and oriented, mildly confused HEENT: Normal cephalic, atraumatic, external auditory canals are patent EYES: Extraocular muscles are intact, pupil are equally round and reactive to light and accommodation MUSCULOSKELETAL: Well developed , well nourished, good range of motion ENDOCRINE: No thyromegaly was palpated LYMPHATICS: No cervical chain or axillary nodes were noted HEMATOPOIETIC: No bruising NECK: Supple, no JVD, no thyromegaly was noted LUNGS: Clear to auscultation in all lung lorenzo without rhonchi or wheezing HEART: RRR, S!, S2 present. Peripheral pulses intact, no obvious murmurs noted ABDOMEN: Soft, nontender. Positive bowel sounds, no organomegaly, normal bowel sounds EXTREMITIES: Without clubbing, cyanosis, or edema. Pedal pulses intact. Negative Homans sign NEUROLOGIC: Normal speech and tone. A&O x 3, moves all extremities, no obvious focal deficits PSYCHIATRIC: Normal affect, normal mood. Stable SKIN: No ulcerations or rashes, good skin turgor, no jaundice VASCULAR: Good capillary refill, neurovascular bundle appears to be intact General: Alert, Oriented X3, Cooperative Lungs: Clear Abdomen: Normal bowel sounds, Soft Extremities: No clubbing, No cyanosis Skin: No rashes Labs LABS DPOA REVIEW 17 MIN to patient portal What Is a Power of Ribbon Winder? A power of employment attorney (POA) is a legal document giving one person (the agent or [id number]) the power to act for another person (the principal). The agent can have broad legal authority or limited authority to make legal decisions about the principal's property, finances or medical care. The power of employment attorney is frequently used in the event of a principal's illness or disability, or when the principal can't be present to sign necessary legal documents for financial transactions. A power of employment attorney can end for a number of reasons, such as when the principal dies, the principal revokes it, a court invalidates it, the principal divorces their spouse, who happens to be the agent, or the agent can no longer carry out the outlined responsibilities. Conventional POAs lapse when the creator becomes incapacitated, but a durable POA remains in force to enable the agent to manage the creators affairs, and a springing POA comes into effect only if and when the creator of the POA becomes incapacitated. A medical or healthcare POA enables an agent to make medical decisions on behalf of an incapacitated person. [employer] Takeaways A power of employment attorney (POA) is a legal document giving one person, the agent or [id number] the power to act for another person, the principal. The agent can have broad legal authority or limited authority to make decisions about the principal's property, finances or medical care. The power of employment attorney is often used when a principal becomes ill or disabled, or when they can't be present to sign necessary legal documents for financial transactions. Understanding Power of Ribbon Winder A power of employment attorney should be considered when planning for long-term care. There are different types of POAs that fall under either a general power of employment attorney or limited power of employment attorney. A general power of employment attorney acts on behalf of the principal in any and all matters, as allowed by the state. The agent under a general POA agreement may be authorized to take care of issues such as handling bank accounts, signing checks, selling property and assets like stocks, f A limited power of employment attorney gives the agent the power to act on behalf of the principal in specific matters or events. For example, the limited POA may explicitly state that the agent is only allowed to manage the principal's snf accounts. A limited POA may also be limited to a specific period of time (e.g., if the principal will be out of the country for, say, two years). Most eldridge of employment attorney documents allow an agent to represent the principal in all property and financial matters as long as the principals mental state of mind is good. If a situation occurs where the principal becomes incapable of making decisions for him or herself, the POA agreement would automatically end. However, someone who wants the POA to remain in effect after the persons health deteriorates would need to sign a durable power of employment attorney (DPOA). What is an advance directive? An advance directive is a legal document that says how you want to be cared for if you are unable to make decisions. You can include what medical treatments you would want and who you would trust to make decisions for you. An advance directive can also include other legal documents. A living will is a list of treatment preferences. It can be used to indicate whether you would want cardiopulmonary resuscitation (CPR), tube feedings, a breathing machine, or certain medicines, like antibiotics. The durable power of employment attorney for health care document identifies the person you would want to make medical decisions for you. This person is also called a proxy. Your proxy should be familiar with your values and wishes. How do I get started? You can get advance directive documents for your state from your doctor's office or from [email or web address].org. Review the forms, and ask your doctor if you have any questions. Pick a person to be your proxy, and talk it over with that person. XR ABDOMEN COMP ACUTE INDICATION: Reason: SOA, constipation / Spl. Instructions: / History: . COMPARISON STUDY: None. FINDINGS: Lungs: Normal lung volume. Prominent interstitial markings. Pleura: No pleural effusion or pneumothorax. Heart and Mediastinum: Cardiomegaly. Tortuosity of the thoracic aorta. Abdomen: No free air.. Nonobstructive bowel gas pattern. Moderate colonic stool. IMPRESSION: 1. Prominent interstitial markings, which may reflect interstitial edema. 2. Nonobstructive bowel gas pattern. Moderate colonic stool. Electronically signed by: Malaika Sepulveda MD (08/09/2020 9:53 PM) [facility] DICTATED and SIGNED BY: MALAIKA SEPULVEDA MD Laboratory Tests Test 08/10/20 12:30 08/10/20 17:00 08/11/20 07:15 Troponin I Quantitative 0.068 ng/mL (0.000-0.055) Potassium Level 3.5 mmol/L (3.5-5.1) 4.0 mmol/L (3.5-5.1) Digoxin Level < 0.2 ng/mL (0.9-2.0) Digoxin Last Dose Date Unk Digoxin Last Dose Time Unk White Blood Count 20.1 x10^3/uL (4.0-11.0) Red Blood Count 4.34 x10^6/uL (4.30-5.70) Hemoglobin 12.5 g/dL (13.0-17.5) Hematocrit 39.4 % (39.0-53.0) Mean Corpuscular Volume 91 fL (79-100) Mean Corpuscular Hemoglobin 29 pg (25-35) Mean Corpuscular Hemoglobin Concent 32 g/dL (31-37) Red Cell Distribution Width 15.8 % (11.5-14.5) Platelet Count 175 x10^3/uL (140-400) Neutrophils (%) (Auto) 86 % (31-73) Lymphocytes (%) (Auto) 9 % (24-48) Monocytes (%) (Auto) 5 % (0-9) Eosinophils (%) (Auto) 0 % (0-3) Basophils (%) (Auto) 0 % (0-3) Neutrophils # (Auto) 17.2 x10^3/uL (1.8-7.7) Lymphocytes # (Auto) 1.9 x10^3/uL (1.0-4.8) Monocytes # (Auto) 1.0 x10^3/uL (0.0-1.1) Eosinophils # (Auto) 0.0 x10^3/uL (0.0-0.7) Basophils # (Auto) 0.0 x10^3/uL (0.0-0.2) Segmented Neutrophils % 77 % (35-66) Band Neutrophils % 12 % (0-9) Lymphocytes % 7 % (24-48) Monocytes % 3 % (0-10) Metamyelocytes % 1 % (0-0) Platelet Estimate Adequate (ADEQUATE) Anisocytosis Slight Sodium Level 137 mmol/L (136-145) Chloride Level 97 mmol/L (98-107) Carbon Dioxide Level 19 mmol/L (21-32) Anion Gap 21 (6-14) Blood Urea Nitrogen 37 mg/dL (8-26) Creatinine 3.1 mg/dL (0.7-1.3) Estimated GFR (Cockcroft-Gault) 19.8 Glucose Level 144 mg/dL (70-99) Calcium Level 8.5 mg/dL (8.5-10.1) Phosphorus Level 7.1 mg/dL (2.6-4.7) Magnesium Level 2.4 mg/dL (1.8-2.4) Assessment and Plan Assessmemt and Plan Problems Medical Problems: (1) Atrial fibrillation with rapid ventricular response Status: Acute (2) Elevated troponin Status: Acute PAFIB/flutter with RVR; Rate better controlled Mild troponin elevation; peak 0.067, demand mediated Cardiomyopathy; LVEF 30-35%. Comment Review of Relevant I have reviewed the following items ben (where applicable) has been applied. Labs Laboratory Tests Test 08/09/20 20:15 08/09/20 20:45 08/10/20 02:40 08/10/20 07:40 White Blood Count 9.5 x10^3/uL (4.0-11.0) 11.0 x10^3/uL (4.0-11.0) Red Blood Count 4.29 x10^6/uL (4.30-5.70) 4.22 x10^6/uL (4.30-5.70) Hemoglobin 12.6 g/dL (13.0-17.5) 12.2 g/dL (13.0-17.5) Hematocrit 37.6 % (39.0-53.0) 36.8 % (39.0-53.0) Mean Corpuscular Volume 88 fL (79-100) 87 fL (79-100) Mean Corpuscular Hemoglobin 29 pg (25-35) 29 pg (25-35) Mean Corpuscular Hemoglobin Concent 34 g/dL (31-37) 33 g/dL (31-37) Red Cell Distribution Width 15.6 % (11.5-14.5) 15.7 % (11.5-14.5) Platelet Count 199 x10^3/uL (140-400) 186 x10^3/uL (140-400) Neutrophils (%) (Auto) 63 % (31-73) 68 % (31-73) Lymphocytes (%) (Auto) 23 % (24-48) 19 % (24-48) Monocytes (%) (Auto) 9 % (0-9) 10 % (0-9) Eosinophils (%) (Auto) 2 % (0-3) 1 % (0-3) Basophils (%) (Auto) 3 % (0-3) 2 % (0-3) Neutrophils # (Auto) 6.0 x10^3/uL (1.8-7.7) 7.5 x10^3/uL (1.8-7.7) Lymphocytes # (Auto) 2.2 x10^3/uL (1.0-4.8) 2.1 x10^3/uL (1.0-4.8) Monocytes # (Auto) 0.9 x10^3/uL (0.0-1.1) 1.1 x10^3/uL (0.0-1.1) Eosinophils # (Auto) 0.2 x10^3/uL (0.0-0.7) 0.1 x10^3/uL (0.0-0.7) Basophils # (Auto) 0.2 x10^3/uL (0.0-0.2) 0.2 x10^3/uL (0.0-0.2) Sodium Level 140 mmol/L (136-145) 141 mmol/L (136-145) Potassium Level 2.6 mmol/L (3.5-5.1) 2.6 mmol/L (3.5-5.1) Chloride Level 101 mmol/L (98-107) 102 mmol/L (98-107) Carbon Dioxide Level 28 mmol/L (21-32) 27 mmol/L (21-32) Anion Gap 11 (6-14) 12 (6-14) Blood Urea Nitrogen 21 mg/dL (8-26) 19 mg/dL (8-26) Creatinine 1.6 mg/dL (0.7-1.3) 1.5 mg/dL (0.7-1.3) Estimated GFR (Cockcroft-Gault) 42.5 45.7 BUN/Creatinine Ratio 13 (6-20) Glucose Level 122 mg/dL (70-99) 133 mg/dL (70-99) Calcium Level 9.0 mg/dL (8.5-10.1) 8.6 mg/dL (8.5-10.1) Magnesium Level 2.3 mg/dL (1.8-2.4) 2.2 mg/dL (1.8-2.4) Total Bilirubin 2.9 mg/dL (0.2-1.0) Aspartate Amino Transf (AST/SGOT) 157 U/L (15-37) Alanine Aminotransferase (ALT/SGPT) 166 U/L (16-63) Alkaline Phosphatase 336 U/L (46-116) Troponin I Quantitative 0.067 ng/mL (0.000-0.055) 0.064 ng/mL (0.000-0.055) 0.067 ng/mL (0.000-0.055) IR-Ces-W-Type Natriuretic Peptide 6883 pg/mL (0-124) Total Protein 7.2 g/dL (6.4-8.2) Albumin 3.4 g/dL (3.4-5.0) Albumin/Globulin Ratio 0.9 (1.0-1.7) Coronavirus (PCR) Not detected (Not Detected) Triglycerides Level 72 mg/dL (0-150) Cholesterol Level 114 mg/dL (0-200) LDL Cholesterol, Calculated 87 mg/dL (0-100) VLDL Cholesterol, Calculated 14 mg/dL (0-40) Non-HDL Cholesterol Calculated 101 mg/dL (0-129) HDL Cholesterol 13 mg/dL (40-60) Cholesterol/HDL Ratio 8.8 Thyroid Stimulating Hormone (TSH) 0.010 uIU/mL (0.358-3.74) Free Thyroxine 1.57 ng/dL (0.76-1.46) Test 08/10/20 12:30 08/10/20 17:00 08/11/20 07:15 Troponin I Quantitative 0.068 ng/mL (0.000-0.055) Potassium Level 3.5 mmol/L (3.5-5.1) 4.0 mmol/L (3.5-5.1) Digoxin Level < 0.2 ng/mL (0.9-2.0) Digoxin Last Dose Date Unk Digoxin Last Dose Time Unk White Blood Count 20.1 x10^3/uL (4.0-11.0) Red Blood Count 4.34 x10^6/uL (4.30-5.70) Hemoglobin 12.5 g/dL (13.0-17.5) Hematocrit 39.4 % (39.0-53.0) Mean Corpuscular Volume 91 fL (79-100) Mean Corpuscular Hemoglobin 29 pg (25-35) Mean Corpuscular Hemoglobin Concent 32 g/dL (31-37) Red Cell Distribution Width 15.8 % (11.5-14.5) Platelet Count 175 x10^3/uL (140-400) Neutrophils (%) (Auto) 86 % (31-73) Lymphocytes (%) (Auto) 9 % (24-48) Monocytes (%) (Auto) 5 % (0-9) Eosinophils (%) (Auto) 0 % (0-3) Basophils (%) (Auto) 0 % (0-3) Neutrophils # (Auto) 17.2 x10^3/uL (1.8-7.7) Lymphocytes # (Auto) 1.9 x10^3/uL (1.0-4.8) Monocytes # (Auto) 1.0 x10^3/uL (0.0-1.1) Eosinophils # (Auto) 0.0 x10^3/uL (0.0-0.7) Basophils # (Auto) 0.0 x10^3/uL (0.0-0.2) Segmented Neutrophils % 77 % (35-66) Band Neutrophils % 12 % (0-9) Lymphocytes % 7 % (24-48) Monocytes % 3 % (0-10) Metamyelocytes % 1 % (0-0) Platelet Estimate Adequate (ADEQUATE) Anisocytosis Slight Sodium Level 137 mmol/L (136-145) Chloride Level 97 mmol/L (98-107) Carbon Dioxide Level 19 mmol/L (21-32) Anion Gap 21 (6-14) Blood Urea Nitrogen 37 mg/dL (8-26) Creatinine 3.1 mg/dL (0.7-1.3) Estimated GFR (Cockcroft-Gault) 19.8 Glucose Level 144 mg/dL (70-99) Calcium Level 8.5 mg/dL (8.5-10.1) Phosphorus Level 7.1 mg/dL (2.6-4.7) Magnesium Level 2.4 mg/dL (1.8-2.4) Laboratory Tests Test 08/10/20 12:30 08/10/20 17:00 08/11/20 07:15 Troponin I Quantitative 0.068 ng/mL (0.000-0.055) Potassium Level 3.5 mmol/L (3.5-5.1) 4.0 mmol/L (3.5-5.1) Digoxin Level < 0.2 ng/mL (0.9-2.0) Digoxin Last Dose Date Unk Digoxin Last Dose Time Unk White Blood Count 20.1 x10^3/uL (4.0-11.0) Red Blood Count 4.34 x10^6/uL (4.30-5.70) Hemoglobin 12.5 g/dL (13.0-17.5) Hematocrit 39.4 % (39.0-53.0) Mean Corpuscular Volume 91 fL (79-100) Mean Corpuscular Hemoglobin 29 pg (25-35) Mean Corpuscular Hemoglobin Concent 32 g/dL (31-37) Red Cell Distribution Width 15.8 % (11.5-14.5) Platelet Count 175 x10^3/uL (140-400) Neutrophils (%) (Auto) 86 % (31-73) Lymphocytes (%) (Auto) 9 % (24-48) Monocytes (%) (Auto) 5 % (0-9) Eosinophils (%) (Auto) 0 % (0-3) Basophils (%) (Auto) 0 % (0-3) Neutrophils # (Auto) 17.2 x10^3/uL (1.8-7.7) Lymphocytes # (Auto) 1.9 x10^3/uL (1.0-4.8) Monocytes # (Auto) 1.0 x10^3/uL (0.0-1.1) Eosinophils # (Auto) 0.0 x10^3/uL (0.0-0.7) Basophils # (Auto) 0.0 x10^3/uL (0.0-0.2) Segmented Neutrophils % 77 % (35-66) Band Neutrophils % 12 % (0-9) Lymphocytes % 7 % (24-48) Monocytes % 3 % (0-10) Metamyelocytes % 1 % (0-0) Platelet Estimate Adequate (ADEQUATE) Anisocytosis Slight Sodium Level 137 mmol/L (136-145) Chloride Level 97 mmol/L (98-107) Carbon Dioxide Level 19 mmol/L (21-32) Anion Gap 21 (6-14) Blood Urea Nitrogen 37 mg/dL (8-26) Creatinine 3.1 mg/dL (0.7-1.3) Estimated GFR (Cockcroft-Gault) 19.8 Glucose Level 144 mg/dL (70-99) Calcium Level 8.5 mg/dL (8.5-10.1) Phosphorus Level 7.1 mg/dL (2.6-4.7) Magnesium Level 2.4 mg/dL (1.8-2.4) Medications Current Medications Diltiazem HCl (Cardizem Iv Push) 20 mg 1X ONCE IVP Last administered on 08/09/20at 20:26; Start 08/09/20 at 20:00; Stop 08/09/20 at 20:03; Status DC Sodium Chloride 500 ml @ 500 mls/hr 1X ONCE IV Last administered on 08/09/20at 20:19; Start 08/09/20 at 20:00; Stop 08/09/20 at 20:59; Status DC Diltiazem HCl 125 mg/Sodium Chloride 125 ml @ 5 mls/hr CONT PRN IV SEE I/O RECORD Last administered on 08/09/20at 21:06; Start 08/09/20 at 21:00 Potassium Chloride (Klor-Con) 40 meq 1X ONCE PO ; Start 08/09/20 at 21:30; Stop 08/09/20 at 21:31; Status DC Potassium Chloride/Water 100 ml @ 50 mls/hr 1X ONCE IV ; Start 08/09/20 at 21:30; Stop 08/09/20 at 23:29; Status UNV Potassium Chloride/Water 100 ml @ 100 mls/hr Q1H IV Last administered on 08/10/20at 00:43; Start 08/09/20 at 22:00; Stop 08/09/20 at 23:59; Status DC Ondansetron HCl (Zofran) 4 mg PRN Q8HRS PRN IV NAUSEA/VOMITING 1ST CHOICE; Start 08/09/20 at 22:15; Stop 08/10/20 at 22:14; Status Cancel Acetaminophen (Tylenol) 650 mg PRN Q4HRS PRN PO FEVER > 100.3'F; Start 08/09/20 at 22:15; Stop 08/10/20 at 22:14; Status DC Sennosides (Senna) 17.2 mg PRN BID PRN PO CONSTIPATION; Start 08/10/20 at 08:45 Docusate Sodium (Colace) 100 mg PRN DAILY PRN PO HARD STOOLS; Start 08/10/20 at 08:45 Ondansetron HCl (Zofran) 4 mg PRN Q6HRS PRN IVP NAUSEA/VOMITING; Start 08/10/20 at 08:45 Dextrose (Dextrose 50%-Water Syringe) 12.5 gm PRN Q15MIN PRN IV SEE COMMENTS; Start 08/10/20 at 08:45 Acetaminophen (Tylenol) 650 mg PRN Q4HRS PRN PO TEMP OVER 100.4F OR MILD PAIN; Start 08/10/20 at 08:45 Morphine Sulfate (Morphine Sulfate) 2 mg PRN Q2HR PRN IV SEVERE PAIN 7-10; Start 08/10/20 at 04:00; Stop 08/11/20 at 03:59; Status DC Apixaban (Eliquis) 5 mg BID PO Last administered on 08/11/20at 08:29; Start 08/10/20 at 09:00 Ascorbic Acid (Vitamin C) 500 mg DAILY PO Last administered on 08/11/20at 08:30; Start 08/10/20 at 09:00 Aspirin (Ecotrin) 81 mg DAILYWBKFT PO Last administered on 08/11/20at 08:29; Start 08/10/20 at 09:00 Digoxin (Lanoxin) 125 mcg DAILY PO Last administered on 08/11/20at 08:30; Start 08/10/20 at 09:00 Metoprolol Tartrate (Lopressor) 50 mg BID PO Last administered on 08/10/20at 21:19; Start 08/10/20 at 09:00; Stop 08/10/20 at 22:00; Status DC Pantoprazole Sodium (Protonix) 40 mg DAILYAC PO Last administered on 08/11/20at 08:30; Start 08/10/20 at 11:30 Polyethylene Glycol (miraLAX PACKET) 17 gm PRN DAILY PRN PO constipation; Start 08/10/20 at 08:45 Potassium Chloride/Water 100 ml @ 100 mls/hr Q1H IV ; Start 08/10/20 at 09:45; Stop 08/10/20 at 13:44; Status UNV Info (Non-Icu Electrolyte Protocol) 1 ea CONT PRN PRN MC SEE COMMENTS; Start 08/10/20 at 10:00 Potassium Chloride/Water 100 ml @ 100 mls/hr Q1HR IV Last administered on 08/10/20at 15:24; Start 08/10/20 at 11:00; Stop 08/10/20 at 14:59; Status DC Atorvastatin Calcium (Lipitor) 40 mg QHS PO Last administered on 08/10/20at 21:19; Start 08/10/20 at 21:00 Furosemide (Lasix) 40 mg 1X ONCE IVP Last administered on 08/10/20at 12:39; Start 08/10/20 at 12:15; Stop 08/10/20 at 12:16; Status DC Spironolactone (Aldactone) 25 mg DAILY PO Last administered on 08/11/20at 08:30; Start 08/11/20 at 09:00 Potassium Bicarbonate (Potassium Effervescent Tablet) 40 meq 1X ONCE PO Last administered on 08/10/20at 12:39; Start 08/10/20 at 12:30; Stop 08/10/20 at 12:31; Status DC Methimazole (Tapazole) 10 mg DAILY PO Last administered on 08/11/20at 08:29; Start 08/10/20 at 14:30 Metoprolol Succinate (Toprol Xl) 100 mg DAILY PO ; Start 08/11/20 at 09:00 Info (Anti-Coagulation Monitoring By Pharmacy) 1 each PRN DAILY PRN MC SEE COMMENTS; Start 08/10/20 at 17:15 Perflutren Protein Type A Microsphe (Optison) 0.66 mg 1X ONCE IV Last administered on 08/11/20at 08:57; Start 08/11/20 at 08:30; Stop 08/11/20 at 08:31; Status DC Perflutren Protein Type A Microsphe (Optison) 0.66 mg 1X ONCE IV ; Start 08/11/20 at 09:00; Stop 08/11/20 at 09:01; Status UNV Active Scripts Active Polyethylene Glycol 3350 17 Gm Powd.pack 17 Gm PO PRN DAILY PRN 28 Days Bisacodyl 5 Mg Tablet. 5 Mg PO PRN DAILY PRN 14 Days Acetaminophen 500 Mg Tablet 500 Mg PO PRN Q6HRS PRN 30 Days Aspirin Ec (Aspirin) 81 Mg Tablet. 81 Mg PO DAILYWBKFT 30 Days Digoxin 125 Mcg Tablet 125 Mcg PO DAILY 30 Days Eliquis (Apixaban) 5 Mg Tablet 5 Mg PO BID 30 Days Duoneb 0.5-3(2.5) Mg/3 Ml (Albuterol/Ipratropium) 3 Ml Ampul.neb 3 Ml NEB RTQID 30 Days Vitamin C (Ascorbic Acid) 500 Mg Tablet 500 Mg PO DAILY 30 Days Thera-M Tablet (Multivits,Ca,Minerals/Iron/Fa) 1 Each Tablet 1 Tab PO DAILY 30 Days Pantoprazole Sodium (Pantoprazole Sodium) 40 Mg Tablet.dr 40 Mg PO DAILYAC 30 Days Klor-Con M20 (Potassium Chloride) 20 Meq Tab.er.prt 20 Meq PO DAILYWBKFT 30 Days Percocet 5-325 Mg Tablet (Oxycodone/Acetaminophen) 1 Each Tablet 1 Tab PO PRN Q6HRS PRN 6 Days Reported Spironolactone 25 Mg Tablet 1 Tab PO DAILY Furosemide 20 Mg Tablet 1 Tab PO DAILY Symbicort 80-4.5 Mcg Inhaler (Budesonide/Formoterol Fumarate) 10.2 Gm Hfa.aer.ad 2 Puff IH BID Metoprolol Tartrate 50 Mg Tablet 1 Tab PO BID Vitals/I & O Vital Sign - Last 24 Hours 08/10/20 08/10/20 08/10/20 08/10/20 11:19 12:20 15:04 19:32 Temp 97.6 97.6 97.6 97.6 97.6 97.6 Pulse 107 70 89 87 Resp 22 26 26 B/P (MAP) 137/60 (85) 114/64 (81) 92/57 (69) 101/63 (76) Pulse Ox 94 92 100 O2 Delivery Nasal Cannula Nasal Cannula Nasal Cannula O2 Flow Rate 2.0 2.0 2.0 08/10/20 08/10/20 08/10/20 08/11/20 20:00 21:19 23:00 02:24 Temp 97.6 97.7 97.6 97.7 Pulse 87 83 84 Resp 42 38 B/P (MAP) 101/63 91/48 (62) 95/55 (68) Pulse Ox 95 97 O2 Delivery Nasal Cannula Nasal Cannula Nasal Cannula O2 Flow Rate 2.0 2.0 2.0 08/11/20 08/11/20 08/11/20 07:00 08:29 08:30 Temp 97.7 97.7 Pulse 63 84 84 Resp 25 B/P (MAP) 81/45 (57) 95/55 95/55 Pulse Ox 97 O2 Delivery Nasal Cannula O2 Flow Rate 2.0 Intake and Output 08/10/20 08/10/20 08/11/20 15:00 23:00 07:00 Intake Total 600 ml 240 ml 100 ml Balance 600 ml 240 ml 100 ml Justicifation of Admission Dx: Justifications for Admission: Justification of Admission Dx: Yes LAUREL GLASS MD Aug 11, 2020 10:33
[2020-08-11] MEDS ORDERED: IV NORMAL SALINE 1000ML BAG 1,000 ML IV ONE (12:15)
--- NOTE | 2020-08-11 12:16 | PDOC ---
EARLINE MADISON DRILLING FOREMAN 08/11/20 1216: CARDIO Progress Notes Date and Time Date of Service 08/11/2020 Time of Evaluation 1040 Subjective Subjective: No Chest Pain, No shortness of breath, No Palpitations Vitals Vitals Vital Signs Date Time Temp Pulse Resp B/P (MAP) Pulse Ox O2 Delivery O2 Flow Rate FiO2 08/11/20 11:00 97.9 71 25 86/53 (64) 94 Nasal Cannula 2.0 97.9 Weight Weight [ ] Input and Output Intake and Output Intake and Output 08/11/20 07:00 Intake Total 940 ml Balance 940 ml Intake Oral 940 ml # Voids 2 Laboratory Labs Laboratory Tests Test 08/10/20 12:30 08/10/20 17:00 08/11/20 07:15 Troponin I Quantitative 0.068 ng/mL (0.000-0.055) Potassium Level 3.5 mmol/L (3.5-5.1) 4.0 mmol/L (3.5-5.1) Digoxin Level < 0.2 ng/mL (0.9-2.0) Digoxin Last Dose Date Unk Digoxin Last Dose Time Unk White Blood Count 20.1 x10^3/uL (4.0-11.0) Red Blood Count 4.34 x10^6/uL (4.30-5.70) Hemoglobin 12.5 g/dL (13.0-17.5) Hematocrit 39.4 % (39.0-53.0) Mean Corpuscular Volume 91 fL (79-100) Mean Corpuscular Hemoglobin 29 pg (25-35) Mean Corpuscular Hemoglobin Concent 32 g/dL (31-37) Red Cell Distribution Width 15.8 % (11.5-14.5) Platelet Count 175 x10^3/uL (140-400) Neutrophils (%) (Auto) 86 % (31-73) Lymphocytes (%) (Auto) 9 % (24-48) Monocytes (%) (Auto) 5 % (0-9) Eosinophils (%) (Auto) 0 % (0-3) Basophils (%) (Auto) 0 % (0-3) Neutrophils # (Auto) 17.2 x10^3/uL (1.8-7.7) Lymphocytes # (Auto) 1.9 x10^3/uL (1.0-4.8) Monocytes # (Auto) 1.0 x10^3/uL (0.0-1.1) Eosinophils # (Auto) 0.0 x10^3/uL (0.0-0.7) Basophils # (Auto) 0.0 x10^3/uL (0.0-0.2) Segmented Neutrophils % 77 % (35-66) Band Neutrophils % 12 % (0-9) Lymphocytes % 7 % (24-48) Monocytes % 3 % (0-10) Metamyelocytes % 1 % (0-0) Platelet Estimate Adequate (ADEQUATE) Anisocytosis Slight Sodium Level 137 mmol/L (136-145) Chloride Level 97 mmol/L (98-107) Carbon Dioxide Level 19 mmol/L (21-32) Anion Gap 21 (6-14) Blood Urea Nitrogen 37 mg/dL (8-26) Creatinine 3.1 mg/dL (0.7-1.3) Estimated GFR (Cockcroft-Gault) 19.8 Glucose Level 144 mg/dL (70-99) Calcium Level 8.5 mg/dL (8.5-10.1) Phosphorus Level 7.1 mg/dL (2.6-4.7) Magnesium Level 2.4 mg/dL (1.8-2.4) Physical Exam HEENT: Neck Supple W Full Motion Chest: Symmetric LUNGS: Other (diminished) Heart: irregularly irregular (atrial flutter rate controlled) Extremities: No Calf Tenderness, Other (trace LE edema. warm to touch) Neurology: alert, oriented, follow commands Assessment Assessment 1. Acute respiratory failure secondary to a/c CHF Covid neg 2. Acute on chronic systolic CHF; ran out of lasix at home. appears compensated 3. PAFIB/flutter with RVR; Rate better controlled 4. Mild troponin elevation; peak 0.067, demand mediated 5. Cardiomyopathy; LVEF 30-35%. 6. CAD; recent cath with 2-vessel disease. No lesions needing intervention noted 7. PAD; s/p recent INSULATION WORKER APPRENTICE of the LSFA. Has DISPLAY FABRICATOR of the right SFA. No critical limb ischemia. Has failed outpatient clinic follow up 8. Severe JOE from 1.5 to 3.1. received lasix yesterday 9. Hypokalemia; replaced 10. Transaminitis possibly from congestive hepatopathy: will repeat LFTs 11. Hyperthyroidism: TSH and T4 are not on goal . On methimazole 12. Poor treatment compliance Recommendations 1. TTE today 2. Stop digoxin and aldactone for now. Restart toprol but will decrease dosing. Stop cardizem. Hold any lasix for now reeval tomorrow 3. IVF x 0.5L at slow rate. Will start on Milrinone. Monitor LFTs and will hold statin for now. 4. Stop apixaban for now given his very low CrCl. Continue ASA 5. Outpatient f/u of PAD with consideration of INSULATION WORKER APPRENTICE of the right SFA DISPLAY FABRICATOR. Discussed importance of compliance and followup. 6. Consult nephrology possible nephritis which can be induced by tapazole but may also cause acute hepatitis. Repeat LFTs. May need to hold tapazole. Check UA.and will do liver and renal sono Justicifation of Admission Dx: Justifications for Admission: Justification of Admission Dx: Yes GRACY BRADSHAW MD 08/12/20 1027: CARDIO Progress Notes Plan Plan Late entry for 08/11/2020 Pt. seen and examined. Agree with above ARCGIS DEVELOPER note. Supportive care. EARLINE MADISON APRN Aug 11, 2020 12:16 GRACY BRADSHAW MD Aug 12, 2020 10:27
[2020-08-11 12:47] LABS: ALBUMIN 3.1 g/dL (3.4-5.0); DIRECT BILIRUBIN 3.2 mg/dL (0.0-0.2); TOTAL BILIRUBIN 5.4 mg/dL (0.2-1.0); TOTAL PROTEIN 5.8 g/dL (6.4-8.2)
[2020-08-11] MEDS: METOPROLOL SUCC 24HR ER 100 MG TAB.ER.24H. PO SCH (13:00)
--- NOTE | 2020-08-11 14:55 | CARD ---
MR#: [id number] Date of Study: 08/11/2020 Ordering Physician: RAMIRO LAGUERRE, Referring Physician: RAMIRO LAGUERRE, Tech: Jessica Montemayor [facility] APPROVED REPORT EXAM: Two-dimensional and M-mode echocardiogram with Doppler and color Doppler. Other Information Quality : Technically LimitedHR: 63bpm Rhythm : Atrial FibrillationAtrial FlutterTechnically limited study due to body habitus/SOA INDICATION Congestive Heart Failure Echo Enhancing Agent Indication: Endocardial border delineation Agent/Amount Used: Optison 2mL RISK FACTORS Hypertension Hyperlipidemia 2D DIMENSIONS RVDd4.8 (2.9-3.5cm)Left Atrium(2D)5.4 (1.6-4.0cm) IVSd1.3 (0.7-1.1cm)Aortic Root(2D)3.4 (2.0-3.7cm) LVDd4.8 (3.9-5.9cm)LVOT Diameter2.1 (1.8-2.4cm) PWd1.2 (0.7-1.1cm)LVDs4.3 (2.5-4.0cm) FS (%) 10.2 %SV24.1 ml Aortic Valve AoV Peak Marshall.81.4cm/sAoV VTI17.6cm AO Peak GR.2.7mmHgLVOT Peak Marshall.63.2cm/s AO Mean GR.1mmHgAVA (VMAX)2.79cm2 Mitral Valve MV E Nkidgjwl939.9cm/sMV E Peak Gr.64mmHg MV DECEL [id number] A Idlwzfew96.6cm/s E/A Ratio4.9 Pulmonary Valve PV Peak Ogymayqa89.5cm/s Tricuspid Valve TR P. Jimbjzvz765zn/sTR Peak Gr.19mmHg LEFT VENTRICLE The left ventricle is normal size. There is borderline to mild concentric left ventricular hypertroph y. The ejection fraction is moderately impaired. Estimated ejection fraction is estimated at 30%. Th ere is global hypokinesis of the left ventricle. Transmitral Doppler flow pattern is Grade III-revers ible restrictive diastolic dysfunction. RIGHT VENTRICLE The right ventricle is mildly dilated. There is normal right ventricular wall thickness. Systolic fun ction is borderline reduced. ATRIA The left atrium is mild to moderately dilated. The right atrium is mild to moderately dilated. The in teratrial septum is intact with no evidence for an atrial septal defect or patent foramen ovale as no luis on 2-D or Doppler imaging. AORTIC VALVE The aortic valve is normal in structure and function. Doppler and Color Flow revealed no significant aortic regurgitation. There is no significant aortic valvular stenosis. MITRAL VALVE The mitral valve is normal in structure and function. There is no evidence of mitral valve prolapse. There is no mitral valve stenosis. Doppler and Color-flow revealed moderately severe mitral regurgita tion. TRICUSPID VALVE The tricuspid valve is normal in structure and function. Doppler and Color Flow revealed mild to mode rate tricuspid regurgitation. Estimated PAP 33 mmHg. PULMONIC VALVE The pulmonary valve is normal in structure and function. Doppler and Color Flow revealed trace pulmon ic valvular regurgitation. GREAT VESSELS The aortic root is normal in size. The ascending aorta is normal in size. The pulmonary artery is nor mal. The IVC is dilated and collapses <50% with inspiration. PERICARDIAL EFFUSION There is no evidence of significant pericardial effusion. Critical Notification Critical Value: No <Conclusion> The left ventricle is normal size. The ejection fraction is moderately impaired. Estimated ejection fraction is estimated at 30%. There is global hypokinesis of the left ventricle. There is borderline to mild concentric left ventricular hypertrophy. Doppler and Color Flow revealed no significant aortic regurgitation. There is no significant aortic valvular stenosis. Doppler and Color-flow revealed moderately severe mitral regurgitation. Doppler and Color Flow revealed mild to moderate tricuspid regurgitation. Estimated PAP 33 mmHg. Signed by : Rancho Fowler MD Electronically Approved : 08/11/2020 14:54:36
[2020-08-11] MEDS: MILRINONE 20MG/100ML PREMIX 100 ML IV PRN (16:05)
--- NOTE | 2020-08-11 20:02 | RAD ---
EXAM: Abdomen sonogram; renal sonogram. HISTORY: Renal insufficiency. Abnormal liver function laboratory values. TECHNIQUE: Sonographic imaging of the abdomen and kidneys and bladder was performed. COMPARISON: None. FINDINGS: The liver is normal in size. There is hepatic steatosis. No focal hepatic lesion is seen. T he gallbladder is absent. The common bile duct is normal in caliber. The inferior vena cava is patent . There is a right pleural effusion. There is a small amount of ascites. The kidneys are not well seen due to respiratory motion. The kidneys appear normal in size. No solid or cystic renal lesion is seen. There is no hydronephrosis. The urinary bladder is unremarkable. The ureteral jets are both seen. IMPRESSION: 1. Limited exam due to respiratory motion. 2. Sonographically unremarkable kidneys. 3. Hepatic steatosis. 4. Right pleural effusion and small abdominal ascites. Electronically signed by: Gretchen Smith MD (08/11/2020 8:00 PM) [facility]
--- NOTE | 2020-08-11 22:45 | RAD ---
Study: CR XR CHEST 1V Indication: Effusion. Comparison: 08/09/2020 Findings: The cardiomediastinal silhouette is again seen to be enlarged. More pronounced plethoric central vasc ulature, generalized increased lung markings and increasing bilateral pleural effusions. No pneumotho rax. Impression: Constellation of findings suggesting worsening volume overload/congestive heart failure, as above. Electronically signed by: CAROLYN SEGURA MD (08/11/2020 10:42 PM) [facility]
[2020-08-11 23:17] LABS: BILIRUBIN,URINE SMALL (NEG); CLARITY,URINE CLEAR; NITRITE,URINE NEGATIVE (NEG); PH,URINE 5.5 (<5.0-8.0); PROTEIN,URINE 100 mg/dL (NEG-TRACE)
[2020-08-11 23:24] LABS: COLOR,URINE AMBER; HYALINE CASTS, URINE MODERATE /HPF
[2020-08-11 23:25] LABS: BACTERIA,URINE 0 /HPF (0-FEW); RBC,URINE OCC /HPF (0-2); WBC,URINE 0 /HPF (0-4)
[2020-08-12 03:00] VITALS: BP 100/52
[2020-08-12 07:00] VITALS: BP 110/55
[2020-08-12 08:07] LABS: ALBUMIN 2.8 g/dL (3.4-5.0); CREATININE 2.3 mg/dL (0.7-1.3); GFR 27.9; TOTAL BILIRUBIN 4.2 mg/dL (0.2-1.0); TOTAL PROTEIN 5.5 g/dL (6.4-8.2)
--- NOTE | 2020-08-12 09:31 | RAD ---
EXAM: XR CHEST 1V 08/12/2020 7:11 AM CLINICAL INDICATION: CHF COMPARISON: Chest radiograph 05/10/2020 TECHNIQUE: AP upright view the chest FINDINGS: The cardiomediastinal silhouette is stable. Small bilateral pleural effusions and mild bib asilar opacities are unchanged. No pneumothorax. There is degenerative joint disease at the glenohume ral and acromioclavicular joints. IMPRESSION: Unchanged small pleural effusions and bibasilar opacities. Electronically signed by: Airam Hoffman MD (08/12/2020 9:29 AM) [id number]
[2020-08-12] MEDS: METOPROLOL SUCC 24HR ER 100 MG TAB.ER.24H. PO SCH (09:55)
[2020-08-12] MEDS: ASPIRIN ENTERIC COATED 81 MG TABLET.DR. PO SCH (09:55)
[2020-08-12] MEDS: ASCORBIC ACID 500 MG TABLET PO SCH (09:56)
[2020-08-12] MEDS: PANTOPRAZOLE 40 MG TABLET.DR. PO SCH (09:56)
[2020-08-12 11:00] VITALS: BP 93/55
--- NOTE | 2020-08-12 11:35 | PDOC ---
[employer] PROGRESS NOTE Date of Service DOS: DATE: 08/12/20 TIME: 11:30 Chief Complaint Chief Complaint Assessment/Plan Acute hypoxic respiratory distress due to acute on chronic systolic CHF, LVEF of 30 to 35% Paroxysmal AFIB with RVR Troponinemia likely due to demand ischemia Cardiomyopathy; LVEF 30-35%. CAD; recent cath with 2-vessel disease PAD JOE due to vasomotor nephropathy versus medication related Transaminitis due to CHF versus medication induced Hypokalemia Hyperthyroidism, undiagnosed plan Admit to medicine cvc bed Appreciate cardiology recommendationswe will discontinue milrinone drip and hold off statins at this time due to elevated liver enzymes Daily diuresis Strict I's and O's Electrolyte replacement IV as needed Continue cvc bed Eliquis for DVT prophylaxis Protonix GI prophylaxis Cardiac diet Full code Discussed with RN and SW Disposition inpatient management as above Surrogate decision maker is the stop digoxin and aldactone for now. Restart toprol but will decrease dosing. Stop cardizem. Justifications for Admission Justifications for Admission Other Justification History of Present Illness History of Present Illness 08/12/2020 No acute events overnight. Milrinone drip was started yesterday. Pending nephrology evaluation for elevated creatinine and decreased creatinine clearance. Patient's chart, labs, images were reviewed and discussed with RN History of Present Illness: HPI: 75-year-old male with history of HTN, AF on eliquis, COPD, who p/w SOA over last 3-4 days. Had a brief transient episode of CP yesterday which resolved within minutes. No current CP. Reports baseline chronic cough as well. Ran out of lasix about a week ago. No fever, chills, abd pain, N/V/D. No aggravating or alleviating factors. Past Medical/Surgical History: PMH/PSH: Past Medical History: CAD, CHF, High Cholesterol, Hypertension, Hyperthyroid, [place], PTSD Past Surgical History: Appendectomy, Tonsillectomy, Exp. Lap Allergies: Allergies: Coded Allergies: No Known Drug Allergies (Unverified , 05/11/20) Social History: Social History: Smoking Status: Current Every Day Smoker Alcohol Use: None Drug Use: None Vitals/I&O Vitals/I&O: Vital Signs Date Time Temp Pulse Resp B/P (MAP) Pulse Ox O2 Delivery O2 Flow Rate FiO2 08/12/20 09:55 101 110/55 08/12/20 07:00 96.8 22 92 Nasal Cannula 2.0 96.8 I & O 08/11/20 08/11/20 08/12/20 15:00 23:00 07:00 Intake Total 250 ml 250 ml 1084.8 ml Output Total 1100 ml Balance 250 ml 250 ml -15.2 ml Physical Exam Physical Exam: Physcial Exam: GEN: No apparent distress. Alert and oriented, mildly confused HEENT: Normal cephalic, atraumatic, external auditory canals are patent EYES: Extraocular muscles are intact, pupil are equally round and reactive to light and accommodation MUSCULOSKELETAL: Well developed , well nourished, good range of motion ENDOCRINE: No thyromegaly was palpated LYMPHATICS: No cervical chain or axillary nodes were noted HEMATOPOIETIC: No bruising NECK: Supple, no JVD, no thyromegaly was noted LUNGS: Clear to auscultation in all lung lorenzo without rhonchi or wheezing HEART: RRR, S!, S2 present. Peripheral pulses intact, no obvious murmurs noted ABDOMEN: Soft, nontender. Positive bowel sounds, no organomegaly, normal bowel sounds EXTREMITIES: Without clubbing, cyanosis, or edema. Pedal pulses intact. Negative Homans sign NEUROLOGIC: Normal speech and tone. A&O x 3, moves all extremities, no obvious focal deficits PSYCHIATRIC: Normal affect, normal mood. Stable SKIN: No ulcerations or rashes, good skin turgor, no jaundice VASCULAR: Good capillary refill, neurovascular bundle appears to be intact General: Alert, Oriented X3, Cooperative Lungs: Clear Abdomen: Normal bowel sounds, Soft Extremities: No clubbing, No cyanosis Skin: No rashes Labs Labs: Laboratory Tests Test 08/11/20 21:15 08/12/20 07:20 Urine Collection Type U cath Urine Color Hina Urine Clarity Clear Urine pH 5.5 (<5.0-8.0) Urine Specific [place] 1.015 (1.000-1.030) Urine Protein 100 mg/dL (NEG-TRACE) Urine Glucose (UA) Negative mg/dL (NEG) Urine Ketones (Stick) Trace mg/dL (NEG) Urine Blood Moderate (NEG) Urine Nitrite Negative (NEG) Urine Bilirubin Small (NEG) Urine Urobilinogen Dipstick 2.0 mg/dL (0.2 mg/dL) Urine Leukocyte Esterase Negative (NEG) Urine RBC Occ /HPF (0-2) Urine WBC 0 /HPF (0-4) Urine Renal Epithelial Cells Few /LPF Urine Bacteria 0 /HPF (0-FEW) Urine Hyaline Casts Moderate /HPF Urine Mucus Mod /LPF Sodium Level 137 mmol/L (136-145) Potassium Level 3.0 mmol/L (3.5-5.1) Chloride Level 101 mmol/L (98-107) Carbon Dioxide Level 25 mmol/L (21-32) Anion Gap 11 (6-14) Blood Urea Nitrogen 49 mg/dL (8-26) Creatinine 2.3 mg/dL (0.7-1.3) Estimated GFR (Cockcroft-Gault) 27.9 BUN/Creatinine Ratio 21 (6-20) Glucose Level 101 mg/dL (70-99) Calcium Level 8.0 mg/dL (8.5-10.1) Total Bilirubin 4.2 mg/dL (0.2-1.0) Aspartate Amino Transf (AST/SGOT) 3575 U/L (15-37) Alanine Aminotransferase (ALT/SGPT) 1988 U/L (16-63) Alkaline Phosphatase 267 U/L (46-116) Total Protein 5.5 g/dL (6.4-8.2) Albumin 2.8 g/dL (3.4-5.0) Albumin/Globulin Ratio 1.0 (1.0-1.7) Assessment and Plan Assessmemt and Plan Problems Medical Problems: (1) Atrial fibrillation with rapid ventricular response Status: Acute (2) Elevated troponin Status: Acute Comment Review of Relevant I have reviewed the following items ben (where applicable) has been applied. Medications: Current Medications Medications (Trade) Dose Ordered Sig/Marcio Route PRN Reason Start Time Stop Time Status Last Admin Dose Admin Sodium Chloride 1,000 ml @ 75 mls/hr 1X ONCE IV 08/11/20 12:15 08/12/20 01:34 DC 08/11/20 12:15 Milrinone Lactate/ Dextrose 100 ml @ 2.925 mls/ hr CONT PRN IV SEE I/O RECORD 08/11/20 12:15 08/11/20 16:05 Metoprolol Succinate (Toprol Xl) 50 mg DAILY PO 08/11/20 13:00 08/12/20 09:55 Justifications for Admission Other Justification Afib RVR IVET WINN MD Aug 12, 2020 11:35
--- NOTE | 2020-08-12 14:11 | CONS ---
DATE OF CONSULTATION: REQUESTING PHYSICIAN: Hospitalist. REASON FOR CONSULTATION: Renal failure. HISTORY OF PRESENT ILLNESS: This is a 75-year-old gentleman with history of hypertension, congestive cardiomyopathy and COPD. The patient's baseline left ventricular ejection fraction is stated to be 30 to 35%. He also has history of paroxysmal atrial fibrillation with rapid ventricular response. At this time, he is admitted and has worsening renal function and in this setting, Nephrology evaluation is requested. Review of laboratories reveals on 08/09/2020; GFR 42.5, which declined by 08/11/2020 to 19.8 and now is at 27.9. No difficulty with urination, nephrolithiasis, or gross hematuria. PAST MEDICAL HISTORY: Hypertension, coronary artery disease, congestive cardiomyopathy with left ventricular ejection fraction of 30-35%, COPD, hyperlipidemia, hypothyroidism, posttraumatic stress disorder, exploratory laparotomy, appendectomy, tonsillectomy. ALLERGIES: None. MEDICATIONS: Reviewed per medication list. FAMILY HISTORY: Noncontributory. SOCIAL HISTORY: The patient resides with assistance. He is an everyday smoker prior to admission. REVIEW OF SYSTEMS: No headache, sinus problem, nasal drainage, epistaxis, change in vision or hearing. No difficulty swallowing. No fever, chills, cough, sputum production, or hemoptysis.. No chest pain. No shortness of breath at this time. No abdominal pain. No nausea, vomiting, diarrhea. No seizures or malignancies. PHYSICAL EXAMINATION: GENERAL APPEARANCE: The patient is awake. HEENT: Sallow complexion, otherwise clear. NECK: No increased JVD. No thyromegaly, mass or adenopathy. LUNGS: Decreased breath sound at bases. CARDIAC: Without S3 or rub. ABDOMEN: Soft, nontender, no bruits. EXTREMITIES: Without edema. NEUROPSYCHIATRIC: Follows appropriately. LABORATORY DATA: As above. IMPRESSION: 1. Chronic kidney disease stage 3 with acute exacerbation due to cardiorenal syndrome. 2. Congestive cardiomyopathy -- decompensated on presentation. RECOMMENDATIONS: 1. Continue fluid balance per cardiopulmonary demands. 2. Follow fluid and electrolyte balance with you. Ultrasound of the abdomen has been obtained and reads "kidneys appear normal in size." as well "there is no hydronephrosis and ""urinary bladder is unremarkable." BUBBA ELY MD DR: SHANNON/cornell JOB#: [id number] / [id number]
[2020-08-12] MEDS: MILRINONE 20MG/100ML PREMIX 100 ML IV PRN (14:22)
--- NOTE | 2020-08-12 14:31 | PDOC ---
CARDIOLOGY PROGRESS NOTE SUBJECTIVE: No new events. OBJECTIVE: Vital Signs/I&O: Vital Signs Date Time Temp Pulse Resp B/P (MAP) Pulse Ox O2 Delivery O2 Flow Rate FiO2 08/12/20 11:00 97.2 95 20 93/55 (68) 90 Nasal Cannula 3.0 97.2 I & O 08/11/20 08/11/20 08/12/20 14:55 22:55 06:55 Intake Total 250 ml 250 ml 1084.8 ml Output Total 1100 ml Balance 250 ml 250 ml -15.2 ml Objective: No new changes. Normal heart tones. No edema. DIAGNOSTIC TESTING: labs reviewed. Labs: Laboratory Tests 08/12/20 07:20 Laboratory Tests Test 08/11/20 21:15 08/12/20 07:20 Urine Collection Type U cath Urine Color Hina Urine Clarity Clear Urine pH 5.5 (<5.0-8.0) Urine Specific [place] 1.015 (1.000-1.030) Urine Protein 100 mg/dL (NEG-TRACE) Urine Glucose (UA) Negative mg/dL (NEG) Urine Ketones (Stick) Trace mg/dL (NEG) Urine Blood Moderate (NEG) Urine Nitrite Negative (NEG) Urine Bilirubin Small (NEG) Urine Urobilinogen Dipstick 2.0 mg/dL (0.2 mg/dL) Urine Leukocyte Esterase Negative (NEG) Urine RBC Occ /HPF (0-2) Urine WBC 0 /HPF (0-4) Urine Renal Epithelial Cells Few /LPF Urine Bacteria 0 /HPF (0-FEW) Urine Hyaline Casts Moderate /HPF Urine Mucus Mod /LPF Sodium Level 137 mmol/L (136-145) Potassium Level 3.0 mmol/L (3.5-5.1) L Chloride Level 101 mmol/L (98-107) Carbon Dioxide Level 25 mmol/L (21-32) Anion Gap 11 (6-14) Blood Urea Nitrogen 49 mg/dL (8-26) H Creatinine 2.3 mg/dL (0.7-1.3) H Estimated GFR (Cockcroft-Gault) 27.9 BUN/Creatinine Ratio 21 (6-20) H Glucose Level 101 mg/dL (70-99) H Calcium Level 8.0 mg/dL (8.5-10.1) L Total Bilirubin 4.2 mg/dL (0.2-1.0) H Aspartate Amino Transf (AST/SGOT) 3575 U/L (15-37) H Alkaline Phosphatase 267 U/L (46-116) H Total Protein 5.5 g/dL (6.4-8.2) L Albumin 2.8 g/dL (3.4-5.0) L Albumin/Globulin Ratio 1.0 (1.0-1.7) ASSESSMENT: 1. Acute respiratory failure secondary to a/c CHF Covid neg 2. Acute on chronic systolic CHF; ran out of lasix at home. appears compensated 3. PAFIB/flutter with RVR; Rate better controlled 4. Mild troponin elevation; peak 0.067, demand mediated 5. Cardiomyopathy; LVEF 30-35%. 6. CAD; recent cath with 2-vessel disease. No lesions needing intervention noted 7. PAD; s/p recent HISTORICAL MANUSCRIPTS CURATOR of the LSFA. Has PATIENT PARTNER of the right SFA. No critical limb ischemia. Has failed outpatient clinic follow up 8. Severe JOE from 1.5 to 3.1. received lasix yesterday 9. Hypokalemia; replaced 10. Transaminitis possibly from congestive hepatopathy: will repeat LFTs 11. Hyperthyroidism: TSH and T4 are not on goal . On methimazole 12. Poor treatment compliance PLAN: 1. Plan for a RHC on friday and evaluate for cardiogenic shock state. 2. consider GI consult. Defer to primary. Justicifation of Admission Dx: Justifications for Admission: Justification of Admission Dx: Yes GRACY BRADSHAW MD Aug 12, 2020 14:31
[2020-08-12 15:00] VITALS: BP 99/52
[2020-08-12] MEDS ORDERED: POTASSIUM CHLORIDE 20 MEQ TABLET.ER. PO ONE (15:00)
[2020-08-12] MEDS ORDERED: POTASSIUM BICARB 20 MEQ EFFERVESCENT TABLET. PO SCH (15:00)
[2020-08-12 19:15] VITALS: BP 118/61
[2020-08-12 23:37] VITALS: BP 111/54
[2020-08-13] VITALS (9 sets, daily range): BP systolic 97–136; BP diastolic 47–78
[2020-08-13 07:15] LABS: BASO # 0.1 x10^3/uL (0.0-0.2); BASO % 1 % (0-3); EOS # 0.2 x10^3/uL (0.0-0.7); EOS % 2 % (0-3); HEMATOCRIT 34.9 % (39.0-53.0); HEMOGLOBIN 11.7 g/dL (13.0-17.5); LYMPH # 1.8 x10^3/uL (1.0-4.8); LYMPH % 15 % (24-48); MEAN CORPUSCULAR HEMOGLOBIN 29 pg (25-35); MEAN CORPUSCULAR HGB CONC 34 g/dL (31-37); MEAN CORPUSCULAR VOLUME 87 fL (79-100); MONO # 0.9 x10^3/uL (0.0-1.1); MONO % 8 % (0-9); NEUT # 9.4 x10^3/uL (1.8-7.7); NEUT % 75 % (31-73); PLATELET COUNT 144 x10^3/uL (140-400); RED BLOOD COUNT 4.03 x10^6/uL (4.30-5.70); RED CELL DISTRIBUTION WIDTH 16.3 % (11.5-14.5); WHITE BLOOD COUNT 12.5 x10^3/uL (4.0-11.0)
[2020-08-13 07:27] LABS: CALCIUM 7.8 mg/dL (8.5-10.1); CREATININE 1.7 mg/dL (0.7-1.3); GFR 39.6; MAGNESIUM 2.1 mg/dL (1.8-2.4); PHOSPHORUS 1.8 mg/dL (2.6-4.7); POTASSIUM 3.2 mmol/L (3.5-5.1)
[2020-08-13] MEDS ORDERED: POTASSIUM BICARB 20 MEQ EFFERVESCENT TABLET. PO ONE (08:30)
[2020-08-13] MEDS: METOPROLOL SUCC 24HR ER 100 MG TAB.ER.24H. PO SCH (08:36)
[2020-08-13] MEDS: ASPIRIN ENTERIC COATED 81 MG TABLET.DR. PO SCH (08:36)
[2020-08-13] MEDS: PANTOPRAZOLE 40 MG TABLET.DR. PO SCH (08:36)
[2020-08-13] MEDS: ASCORBIC ACID 500 MG TABLET PO SCH (08:37)
[2020-08-13 08:56] LABS: ALBUMIN 2.6 g/dL (3.4-5.0); TOTAL BILIRUBIN 3.5 mg/dL (0.2-1.0); TOTAL PROTEIN 5.4 g/dL (6.4-8.2)
--- NOTE | 2020-08-13 11:47 | PDOC ---
[employer] PROGRESS NOTE Date of Service DOS: DATE: 08/13/20 TIME: 11:45 Chief Complaint Chief Complaint Assessment/Plan Acute hypoxic respiratory distress due to acute on chronic systolic CHF, LVEF of 30 to 35% Paroxysmal AFIB with RVR Troponinemia likely due to demand ischemia Cardiomyopathy; LVEF 30-35%. CAD; recent cath with 2-vessel disease PAD JOE due to cardiorenal syndrome Transaminitis due to CHF exacerbation leading to shock liver Hypokalemia Hyperthyroidism, undiagnosed plan Continue CBC telemetry management Appreciate cardiology recommendationspending right heart cath possibly tomorrow. Strict I's and O's Electrolyte replacement IV as needed Continue cvc bed Eliquis for DVT prophylaxis Protonix GI prophylaxis Cardiac diet Full code Discussed with RN and SW Disposition inpatient management as above Surrogate decision maker is the stop digoxin and aldactone for now. Restart toprol but will decrease dosing. Stop cardizem. History of Present Illness History of Present Illness 08/13/2020 No acute events tonight. Patient is -1.5 L output. No complaints voiced at this time. Patient's chart, labs, images were reviewed and discussed with RN. Downtrending liver enzymes and creatinine. 08/12/2020 No acute events overnight. Milrinone drip was started yesterday. Pending nephrology evaluation for elevated creatinine and decreased creatinine clearance. Patient's chart, labs, images were reviewed and discussed with RN History of Present Illness: HPI: 75-year-old male with history of HTN, AF on eliquis, COPD, who p/w SOA over last 3-4 days. Had a brief transient episode of CP yesterday which resolved within minutes. No current CP. Reports baseline chronic cough as well. Ran out of lasix about a week ago. No fever, chills, abd pain, N/V/D. No aggravating or alleviating factors. Past Medical/Surgical History: PMH/PSH: Past Medical History: CAD, CHF, High Cholesterol, Hypertension, Hyperthyroid, M I, PTSD Past Surgical History: Appendectomy, Tonsillectomy, Exp. Lap Allergies: Allergies: Coded Allergies: No Known Drug Allergies (Unverified , 05/11/20) Social History: Social History: Smoking Status: Current Every Day Smoker Alcohol Use: None Drug Use: None Vitals/I&O Vitals/I&O: Vital Signs Date Time Temp Pulse Resp B/P (MAP) Pulse Ox O2 Delivery O2 Flow Rate FiO2 08/13/20 11:00 97.7 107 22 131/66 (87) 96 Nasal Cannula 3.0 97.7 I & O 08/12/20 08/12/20 08/13/20 15:00 23:00 07:00 Intake Total 220 ml 300 ml 420 ml Output Total 1300 ml 1200 ml Balance 220 ml -1000 ml -780 ml Physical Exam Physical Exam: Physcial Exam: GEN: No apparent distress. Alert and oriented, mildly confused HEENT: Normal cephalic, atraumatic, external auditory canals are patent EYES: Extraocular muscles are intact, pupil are equally round and reactive to light and accommodation MUSCULOSKELETAL: Well developed , well nourished, good range of motion ENDOCRINE: No thyromegaly was palpated LYMPHATICS: No cervical chain or axillary nodes were noted HEMATOPOIETIC: No bruising NECK: Supple, no JVD, no thyromegaly was noted LUNGS: Clear to auscultation in all lung lorenzo without rhonchi or wheezing HEART: RRR, S!, S2 present. Peripheral pulses intact, no obvious murmurs noted ABDOMEN: Soft, nontender. Positive bowel sounds, no organomegaly, normal bowel sounds EXTREMITIES: Without clubbing, cyanosis, or edema. Pedal pulses intact. Negative Homans sign NEUROLOGIC: Normal speech and tone. A&O x 3, moves all extremities, no obvious focal deficits PSYCHIATRIC: Normal affect, normal mood. Stable SKIN: No ulcerations or rashes, good skin turgor, no jaundice VASCULAR: Good capillary refill, neurovascular bundle appears to be intact General: Alert, Oriented X3, Cooperative Lungs: Clear Abdomen: Normal bowel sounds, Soft Extremities: No clubbing, No cyanosis Skin: No rashes Labs Labs: Laboratory Tests Test 08/13/20 07:00 White Blood Count 12.5 x10^3/uL (4.0-11.0) Red Blood Count 4.03 x10^6/uL (4.30-5.70) Hemoglobin 11.7 g/dL (13.0-17.5) Hematocrit 34.9 % (39.0-53.0) Mean Corpuscular Volume 87 fL (79-100) Mean Corpuscular Hemoglobin 29 pg (25-35) Mean Corpuscular Hemoglobin Concent 34 g/dL (31-37) Red Cell Distribution Width 16.3 % (11.5-14.5) Platelet Count 144 x10^3/uL (140-400) Neutrophils (%) (Auto) 75 % (31-73) Lymphocytes (%) (Auto) 15 % (24-48) Monocytes (%) (Auto) 8 % (0-9) Eosinophils (%) (Auto) 2 % (0-3) Basophils (%) (Auto) 1 % (0-3) Neutrophils # (Auto) 9.4 x10^3/uL (1.8-7.7) Lymphocytes # (Auto) 1.8 x10^3/uL (1.0-4.8) Monocytes # (Auto) 0.9 x10^3/uL (0.0-1.1) Eosinophils # (Auto) 0.2 x10^3/uL (0.0-0.7) Basophils # (Auto) 0.1 x10^3/uL (0.0-0.2) Sodium Level 140 mmol/L (136-145) Potassium Level 3.2 mmol/L (3.5-5.1) Chloride Level 105 mmol/L (98-107) Carbon Dioxide Level 28 mmol/L (21-32) Anion Gap 7 (6-14) Blood Urea Nitrogen 33 mg/dL (8-26) Creatinine 1.7 mg/dL (0.7-1.3) Estimated GFR (Cockcroft-Gault) 39.6 Glucose Level 99 mg/dL (70-99) Calcium Level 7.8 mg/dL (8.5-10.1) Phosphorus Level 1.8 mg/dL (2.6-4.7) Magnesium Level 2.1 mg/dL (1.8-2.4) Total Bilirubin 3.5 mg/dL (0.2-1.0) Direct Bilirubin 2.0 mg/dL (0.0-0.2) Aspartate Amino Transf (AST/SGOT) 1323 U/L (15-37) Alanine Aminotransferase (ALT/SGPT) 1265 U/L (16-63) Alkaline Phosphatase 263 U/L (46-116) Total Protein 5.4 g/dL (6.4-8.2) Albumin 2.6 g/dL (3.4-5.0) Assessment and Plan Assessmemt and Plan Problems Medical Problems: (1) Atrial fibrillation with rapid ventricular response Status: Acute (2) Elevated troponin Status: Acute Comment Review of Relevant I have reviewed the following items ben (where applicable) has been applied. Medications: Current Medications Medications (Trade) Dose Ordered Sig/Marcio Route PRN Reason Start Time Stop Time Status Last Admin Dose Admin Potassium Chloride (Klor-Con) 60 meq 1X ONCE PO 08/12/20 15:00 08/12/20 15:01 DC 08/12/20 14:44 Potassium Bicarbonate (Potassium Effervescent Tablet) 40 meq 1X ONCE PO 08/13/20 08:30 08/13/20 08:31 DC 08/13/20 08:36 Justifications for Admission Other Justification Afib RVR IVET WINN MD Aug 13, 2020 11:47
--- NOTE | 2020-08-13 12:43 | PDOC ---
PROGRESS NOTES Date of Service DATE: 08/13/20 TIME: 12:39 Subjective Subjective SEEN IN FOLLOW UP OF ARF AND CARDIOMYOPATHY Objective Objective Vital Signs Date Time Temp Pulse Resp B/P (MAP) Pulse Ox O2 Delivery O2 Flow Rate FiO2 08/13/20 11:00 97.7 107 22 131/66 (87) 96 Nasal Cannula 3.0 97.7 Intake and Output 08/13/20 07:00 Intake Total 940 ml Output Total 2500 ml Balance -1560 ml Intake Oral 940 ml Output Urine Total 2500 ml Physical Exam Abdomen: Normal bowel sounds, Soft, No tenderness, No hepatosplenomegaly, No masses Heart: Regular rate, Normal S1, Normal S2, No murmurs, Gallops Extremities: No clubbing, No cyanosis, No edema, Normal pulses, No tenderness/swelling General: Alert Lungs: Clear to auscultation, Normal air movement Diagnosis RENAL FAILURE: Acute, Other (CARDIO-RENAL SYNDROME AND ? CKD) Assessment Assessment Problems Medical Problems: (1) Atrial fibrillation with rapid ventricular response Status: Acute (2) Elevated troponin Status: Acute Plan Plan of Care CONT FLUID BALANCE PER CARDIOPULMONARY DEMANDS. RENAL FUNCTION IS IMPROVING. CONT TO TREND LAB Comment Review of Relevant I have reviewed the following items ben (where applicable) has been applied. Labs Laboratory Tests Test 08/11/20 21:15 08/12/20 07:20 08/13/20 07:00 Urine Collection Type U cath Urine Color Hina Urine Clarity Clear Urine pH 5.5 (<5.0-8.0) Urine Specific Concan 1.015 (1.000-1.030) Urine Protein 100 mg/dL (NEG-TRACE) Urine Glucose (UA) Negative mg/dL (NEG) Urine Ketones (Stick) Trace mg/dL (NEG) Urine Blood Moderate (NEG) Urine Nitrite Negative (NEG) Urine Bilirubin Small (NEG) Urine Urobilinogen Dipstick 2.0 mg/dL (0.2 mg/dL) Urine Leukocyte Esterase Negative (NEG) Urine RBC Occ /HPF (0-2) Urine WBC 0 /HPF (0-4) Urine Renal Epithelial Cells Few /LPF Urine Bacteria 0 /HPF (0-FEW) Urine Hyaline Casts Moderate /HPF Urine Mucus Mod /LPF Sodium Level 137 mmol/L (136-145) 140 mmol/L (136-145) Potassium Level 3.0 mmol/L (3.5-5.1) 3.2 mmol/L (3.5-5.1) Chloride Level 101 mmol/L (98-107) 105 mmol/L (98-107) Carbon Dioxide Level 25 mmol/L (21-32) 28 mmol/L (21-32) Anion Gap 11 (6-14) 7 (6-14) Blood Urea Nitrogen 49 mg/dL (8-26) 33 mg/dL (8-26) Creatinine 2.3 mg/dL (0.7-1.3) 1.7 mg/dL (0.7-1.3) Estimated GFR (Cockcroft-Gault) 27.9 39.6 BUN/Creatinine Ratio 21 (6-20) Glucose Level 101 mg/dL (70-99) 99 mg/dL (70-99) Calcium Level 8.0 mg/dL (8.5-10.1) 7.8 mg/dL (8.5-10.1) Total Bilirubin 4.2 mg/dL (0.2-1.0) 3.5 mg/dL (0.2-1.0) Aspartate Amino Transf (AST/SGOT) 3575 U/L (15-37) 1323 U/L (15-37) Alanine Aminotransferase (ALT/SGPT) 1988 U/L (16-63) 1265 U/L (16-63) Alkaline Phosphatase 267 U/L (46-116) 263 U/L (46-116) Total Protein 5.5 g/dL (6.4-8.2) 5.4 g/dL (6.4-8.2) Albumin 2.8 g/dL (3.4-5.0) 2.6 g/dL (3.4-5.0) Albumin/Globulin Ratio 1.0 (1.0-1.7) White Blood Count 12.5 x10^3/uL (4.0-11.0) Red Blood Count 4.03 x10^6/uL (4.30-5.70) Hemoglobin 11.7 g/dL (13.0-17.5) Hematocrit 34.9 % (39.0-53.0) Mean Corpuscular Volume 87 fL (79-100) Mean Corpuscular Hemoglobin 29 pg (25-35) Mean Corpuscular Hemoglobin Concent 34 g/dL (31-37) Red Cell Distribution Width 16.3 % (11.5-14.5) Platelet Count 144 x10^3/uL (140-400) Neutrophils (%) (Auto) 75 % (31-73) Lymphocytes (%) (Auto) 15 % (24-48) Monocytes (%) (Auto) 8 % (0-9) Eosinophils (%) (Auto) 2 % (0-3) Basophils (%) (Auto) 1 % (0-3) Neutrophils # (Auto) 9.4 x10^3/uL (1.8-7.7) Lymphocytes # (Auto) 1.8 x10^3/uL (1.0-4.8) Monocytes # (Auto) 0.9 x10^3/uL (0.0-1.1) Eosinophils # (Auto) 0.2 x10^3/uL (0.0-0.7) Basophils # (Auto) 0.1 x10^3/uL (0.0-0.2) Phosphorus Level 1.8 mg/dL (2.6-4.7) Magnesium Level 2.1 mg/dL (1.8-2.4) Direct Bilirubin 2.0 mg/dL (0.0-0.2) Laboratory Tests Test 08/13/20 07:00 White Blood Count 12.5 x10^3/uL (4.0-11.0) Red Blood Count 4.03 x10^6/uL (4.30-5.70) Hemoglobin 11.7 g/dL (13.0-17.5) Hematocrit 34.9 % (39.0-53.0) Mean Corpuscular Volume 87 fL (79-100) Mean Corpuscular Hemoglobin 29 pg (25-35) Mean Corpuscular Hemoglobin Concent 34 g/dL (31-37) Red Cell Distribution Width 16.3 % (11.5-14.5) Platelet Count 144 x10^3/uL (140-400) Neutrophils (%) (Auto) 75 % (31-73) Lymphocytes (%) (Auto) 15 % (24-48) Monocytes (%) (Auto) 8 % (0-9) Eosinophils (%) (Auto) 2 % (0-3) Basophils (%) (Auto) 1 % (0-3) Neutrophils # (Auto) 9.4 x10^3/uL (1.8-7.7) Lymphocytes # (Auto) 1.8 x10^3/uL (1.0-4.8) Monocytes # (Auto) 0.9 x10^3/uL (0.0-1.1) Eosinophils # (Auto) 0.2 x10^3/uL (0.0-0.7) Basophils # (Auto) 0.1 x10^3/uL (0.0-0.2) Sodium Level 140 mmol/L (136-145) Potassium Level 3.2 mmol/L (3.5-5.1) Chloride Level 105 mmol/L (98-107) Carbon Dioxide Level 28 mmol/L (21-32) Anion Gap 7 (6-14) Blood Urea Nitrogen 33 mg/dL (8-26) Creatinine 1.7 mg/dL (0.7-1.3) Estimated GFR (Cockcroft-Gault) 39.6 Glucose Level 99 mg/dL (70-99) Calcium Level 7.8 mg/dL (8.5-10.1) Phosphorus Level 1.8 mg/dL (2.6-4.7) Magnesium Level 2.1 mg/dL (1.8-2.4) Total Bilirubin 3.5 mg/dL (0.2-1.0) Direct Bilirubin 2.0 mg/dL (0.0-0.2) Aspartate Amino Transf (AST/SGOT) 1323 U/L (15-37) Alanine Aminotransferase (ALT/SGPT) 1265 U/L (16-63) Alkaline Phosphatase 263 U/L (46-116) Total Protein 5.4 g/dL (6.4-8.2) Albumin 2.6 g/dL (3.4-5.0) Medications Current Medications Diltiazem HCl (Cardizem Iv Push) 20 mg 1X ONCE IVP Last administered on 08/09/20at 20:26; Start 08/09/20 at 20:00; Stop 08/09/20 at 20:03; Status DC Sodium Chloride 500 ml @ 500 mls/hr 1X ONCE IV Last administered on 08/09/20at 20:19; Start 08/09/20 at 20:00; Stop 08/09/20 at 20:59; Status DC Diltiazem HCl 125 mg/Sodium Chloride 125 ml @ 5 mls/hr CONT PRN IV SEE I/O RECORD Last administered on 08/09/20at 21:06; Start 08/09/20 at 21:00; Stop 08/11/20 at 12:04; Status DC Potassium Chloride (Klor-Con) 40 meq 1X ONCE PO ; Start 08/09/20 at 21:30; Stop 08/09/20 at 21:31; Status DC Potassium Chloride/Water 100 ml @ 50 mls/hr 1X ONCE IV ; Start 08/09/20 at 21:30; Stop 08/09/20 at 23:29; Status UNV Potassium Chloride/Water 100 ml @ 100 mls/hr Q1H IV Last administered on 08/10/20at 00:43; Start 08/09/20 at 22:00; Stop 08/09/20 at 23:59; Status DC Ondansetron HCl (Zofran) 4 mg PRN Q8HRS PRN IV NAUSEA/VOMITING 1ST CHOICE; Start 08/09/20 at 22:15; Stop 08/10/20 at 22:14; Status Cancel Acetaminophen (Tylenol) 650 mg PRN Q4HRS PRN PO FEVER > 100.3'F; Start 08/09/20 at 22:15; Stop 08/10/20 at 22:14; Status DC Sennosides (Senna) 17.2 mg PRN BID PRN PO CONSTIPATION; Start 08/10/20 at 08:45 Docusate Sodium (Colace) 100 mg PRN DAILY PRN PO HARD STOOLS; Start 08/10/20 at 08:45 Ondansetron HCl (Zofran) 4 mg PRN Q6HRS PRN IVP NAUSEA/VOMITING; Start 08/10/20 at 08:45 Dextrose (Dextrose 50%-Water Syringe) 12.5 gm PRN Q15MIN PRN IV SEE COMMENTS; Start 08/10/20 at 08:45 Acetaminophen (Tylenol) 650 mg PRN Q4HRS PRN PO TEMP OVER 100.4F OR MILD PAIN; Start 08/10/20 at 08:45 Morphine Sulfate (Morphine Sulfate) 2 mg PRN Q2HR PRN IV SEVERE PAIN 7-10; Start 08/10/20 at 04:00; Stop 08/11/20 at 03:59; Status DC Apixaban (Eliquis) 5 mg BID PO Last administered on 08/11/20at 08:29; Start 08/10/20 at 09:00; Stop 08/11/20 at 12:04; Status DC Ascorbic Acid (Vitamin C) 500 mg DAILY PO Last administered on 08/13/20at 08:37; Start 08/10/20 at 09:00 Aspirin (Ecotrin) 81 mg DAILYWBKFT PO Last administered on 08/13/20at 08:36; Start 08/10/20 at 09:00 Digoxin (Lanoxin) 125 mcg DAILY PO Last administered on 08/11/20at 08:30; Start 08/10/20 at 09:00; Stop 08/11/20 at 12:04; Status DC Metoprolol Tartrate (Lopressor) 50 mg BID PO Last administered on 08/10/20at 21:19; Start 08/10/20 at 09:00; Stop 08/10/20 at 22:00; Status DC Pantoprazole Sodium (Protonix) 40 mg DAILYAC PO Last administered on 08/13/20at 08:36; Start 08/10/20 at 11:30 Polyethylene Glycol (miraLAX PACKET) 17 gm PRN DAILY PRN PO constipation; Start 08/10/20 at 08:45 Potassium Chloride/Water 100 ml @ 100 mls/hr Q1H IV ; Start 08/10/20 at 09:45; Stop 08/10/20 at 13:44; Status UNV Info (Non-Icu Electrolyte Protocol) 1 ea CONT PRN PRN MC SEE COMMENTS; Start 08/10/20 at 10:00 Potassium Chloride/Water 100 ml @ 100 mls/hr Q1HR IV Last administered on 08/10/20at 15:24; Start 08/10/20 at 11:00; Stop 08/10/20 at 14:59; Status DC Atorvastatin Calcium (Lipitor) 40 mg QHS PO Last administered on 08/10/20at 21:19; Start 08/10/20 at 21:00; Stop 08/11/20 at 15:55; Status DC Furosemide (Lasix) 40 mg 1X ONCE IVP Last administered on 08/10/20at 12:39; Start 08/10/20 at 12:15; Stop 08/10/20 at 12:16; Status DC Spironolactone (Aldactone) 25 mg DAILY PO Last administered on 08/11/20at 08:30; Start 08/11/20 at 09:00; Stop 08/11/20 at 12:04; Status DC Potassium Bicarbonate (Potassium Effervescent Tablet) 40 meq 1X ONCE PO Last administered on 08/10/20at 12:39; Start 08/10/20 at 12:30; Stop 08/10/20 at 12:31; Status DC Methimazole (Tapazole) 10 mg DAILY PO Last administered on 08/11/20at 08:29; Start 08/10/20 at 14:30; Stop 08/11/20 at 16:49; Status DC Metoprolol Succinate (Toprol Xl) 100 mg DAILY PO ; Start 08/11/20 at 09:00; Stop 08/11/20 at 12:13; Status DC Info (Anti-Coagulation Monitoring By Pharmacy) 1 each PRN DAILY PRN MC SEE COMMENTS Last administered on 08/11/20at 12:51; Start 08/10/20 at 17:15; Stop 08/11/20 at 12:52; Status DC Perflutren Protein Type A Microsphe (Optison) 0.66 mg 1X ONCE IV Last administered on 08/11/20at 08:57; Start 08/11/20 at 08:30; Stop 08/11/20 at 08:31; Status DC Perflutren Protein Type A Microsphe (Optison) 0.66 mg 1X ONCE IV ; Start 08/11/20 at 09:00; Stop 08/11/20 at 09:01; Status UNV Sodium Chloride 1,000 ml @ 75 mls/hr 1X ONCE IV Last administered on 08/11/20at 12:15; Start 08/11/20 at 12:15; Stop 08/12/20 at 01:34; Status DC Milrinone Lactate/ Dextrose 100 ml @ 2.925 mls/ hr CONT PRN IV SEE I/O RECORD Last administered on 08/12/20at 14:22; Start 08/11/20 at 12:15 Metoprolol Succinate (Toprol Xl) 50 mg DAILY PO Last administered on 08/13/20at 08:36; Start 08/11/20 at 13:00 Potassium Bicarbonate (Potassium Effervescent Tablet) 40 meq Q4H PO ; Start 08/12/20 at 15:00; Stop 08/12/20 at 14:29; Status DC Potassium Chloride (Klor-Con) 60 meq 1X ONCE PO Last administered on 08/12/20at 14:44; Start 08/12/20 at 15:00; Stop 08/12/20 at 15:01; Status DC Potassium Bicarbonate (Potassium Effervescent Tablet) 40 meq 1X ONCE PO Last administered on 08/13/20at 08:36; Start 08/13/20 at 08:30; Stop 08/13/20 at 08:31; Status DC Active Scripts Active Polyethylene Glycol 3350 17 Gm Powd.pack 17 Gm PO PRN DAILY PRN 28 Days Bisacodyl 5 Mg Tablet. 5 Mg PO PRN DAILY PRN 14 Days Acetaminophen 500 Mg Tablet 500 Mg PO PRN Q6HRS PRN 30 Days Aspirin Ec (Aspirin) 81 Mg Tablet. 81 Mg PO DAILYWBKFT 30 Days Digoxin 125 Mcg Tablet 125 Mcg PO DAILY 30 Days Eliquis (Apixaban) 5 Mg Tablet 5 Mg PO BID 30 Days Duoneb 0.5-3(2.5) Mg/3 Ml (Albuterol/Ipratropium) 3 Ml Ampul.neb 3 Ml NEB RTQID 30 Days Vitamin C (Ascorbic Acid) 500 Mg Tablet 500 Mg PO DAILY 30 Days Thera-M Tablet (Multivits,Ca,Minerals/Iron/Fa) 1 Each Tablet 1 Tab PO DAILY 30 Days Pantoprazole Sodium (Pantoprazole Sodium) 40 Mg Tablet. 40 Mg PO DAILYAC 30 Days Klor-Con M20 (Potassium Chloride) 20 Meq Tab.er.prt 20 Meq PO DAILYWBKFT 30 Days Percocet 5-325 Mg Tablet (Oxycodone/Acetaminophen) 1 Each Tablet 1 Tab PO PRN Q6HRS PRN 6 Days Reported Spironolactone 25 Mg Tablet 1 Tab PO DAILY Furosemide 20 Mg Tablet 1 Tab PO DAILY Symbicort 80-4.5 Mcg Inhaler (Budesonide/Formoterol Fumarate) 10.2 Gm Hfa.aer.ad 2 Puff IH BID Metoprolol Tartrate 50 Mg Tablet 1 Tab PO BID Vitals/I & O Vital Sign - Last 24 Hours 08/12/20 08/12/20 08/12/20 08/12/20 15:00 19:15 20:15 23:37 Temp 97.9 98.3 98.0 97.9 98.3 98.0 Pulse 109 95 87 Resp 20 B/P (MAP) 99/52 (68) 118/61 (80) 111/54 (73) Pulse Ox 94 100 94 O2 Delivery Nasal Cannula Nasal Cannula Nasal Cannula Nasal Cannula O2 Flow Rate 3.0 3.0 2.0 3.0 08/13/20 08/13/20 08/13/20 08/13/20 03:40 07:00 08:00 08:36 Temp 98.1 97.6 98.1 97.6 Pulse 111 86 86 Resp 20 B/P (MAP) 111/47 (68) 102/48 (66) 102/48 Pulse Ox 92 92 O2 Delivery Nasal Cannula Nasal Cannula Nasal Cannula O2 Flow Rate 3.0 3.0 3.0 08/13/20 11:00 Temp 97.7 97.7 Pulse 107 Resp 22 B/P (MAP) 131/66 (87) Pulse Ox 96 O2 Delivery Nasal Cannula O2 Flow Rate 3.0 l Intake and Output 08/12/20 08/12/20 08/13/20 15:00 23:00 07:00 Intake Total 220 ml 300 ml 420 ml Output Total 1300 ml 1200 ml Balance 220 ml -1000 ml -780 ml Justifications for Admission Other Justification Afib RVR BUBBA ELY MD Aug 13, 2020 12:43
--- NOTE | 2020-08-13 13:40 | PDOC ---
CARDIOLOGY PROGRESS NOTE SUBJECTIVE: Patient has persistent dyspnea. No significant changes otherwise OBJECTIVE: Vital Signs/I&O: Vital Signs Date Time Temp Pulse Resp B/P (MAP) Pulse Ox O2 Delivery O2 Flow Rate FiO2 08/13/20 11:00 97.7 107 22 131/66 (87) 96 Nasal Cannula 3.0 97.7 I & O 08/12/20 08/12/20 08/13/20 15:00 23:00 07:00 Intake Total 220 ml 300 ml 420 ml Output Total 1300 ml 1200 ml Balance 220 ml -1000 ml -780 ml Objective: No significant lower extremity edema Irregular heart tones Tachypneic CURRENT MEDICATIONS: Current Medications Medications (Trade) Dose Ordered Sig/Marcio Route PRN Reason Start Time Stop Time Status Last Admin Dose Admin Potassium Chloride (Klor-Con) 60 meq 1X ONCE PO 08/12/20 15:00 08/12/20 15:01 DC 08/12/20 14:44 Potassium Bicarbonate (Potassium Effervescent Tablet) 40 meq 1X ONCE PO 08/13/20 08:30 08/13/20 08:31 DC 08/13/20 08:36 DIAGNOSTIC TESTING: Labs reviewed, decreasing LFTs Labs: Laboratory Tests 08/13/20 07:00 Laboratory Tests Test 08/13/20 07:00 White Blood Count 12.5 x10^3/uL (4.0-11.0) H Red Blood Count 4.03 x10^6/uL (4.30-5.70) L Hemoglobin 11.7 g/dL (13.0-17.5) L Hematocrit 34.9 % (39.0-53.0) L Mean Corpuscular Volume 87 fL (79-100) Mean Corpuscular Hemoglobin 29 pg (25-35) Mean Corpuscular Hemoglobin Concent 34 g/dL (31-37) Red Cell Distribution Width 16.3 % (11.5-14.5) H Platelet Count 144 x10^3/uL (140-400) Neutrophils (%) (Auto) 75 % (31-73) H Lymphocytes (%) (Auto) 15 % (24-48) L Monocytes (%) (Auto) 8 % (0-9) Eosinophils (%) (Auto) 2 % (0-3) Basophils (%) (Auto) 1 % (0-3) Neutrophils # (Auto) 9.4 x10^3/uL (1.8-7.7) H Lymphocytes # (Auto) 1.8 x10^3/uL (1.0-4.8) Monocytes # (Auto) 0.9 x10^3/uL (0.0-1.1) Eosinophils # (Auto) 0.2 x10^3/uL (0.0-0.7) Basophils # (Auto) 0.1 x10^3/uL (0.0-0.2) Sodium Level 140 mmol/L (136-145) Potassium Level 3.2 mmol/L (3.5-5.1) L Chloride Level 105 mmol/L (98-107) Carbon Dioxide Level 28 mmol/L (21-32) Anion Gap 7 (6-14) Blood Urea Nitrogen 33 mg/dL (8-26) H Creatinine 1.7 mg/dL (0.7-1.3) H Estimated GFR (Cockcroft-Gault) 39.6 Glucose Level 99 mg/dL (70-99) Calcium Level 7.8 mg/dL (8.5-10.1) L Phosphorus Level 1.8 mg/dL (2.6-4.7) L Total Bilirubin 3.5 mg/dL (0.2-1.0) H Direct Bilirubin 2.0 mg/dL (0.0-0.2) H Aspartate Amino Transf (AST/SGOT) 1323 U/L (15-37) H Alkaline Phosphatase 263 U/L (46-116) H Total Protein 5.4 g/dL (6.4-8.2) L Albumin 2.6 g/dL (3.4-5.0) L ASSESSMENT: 1. Acute on chronic systolic and diastolic heart failure Chronic atrial fibrillation Cardiac shock with shock liver and renal failure PLAN: 1. Plan for a right heart catheterization tomorrow to evaluate the etiology of his volume status and recent multiorgan failure. Depending on renal function could consider cardiac catheterization at the same time. Supportive care for now. Justicifation of Admission Dx: Justifications for Admission: Justification of Admission Dx: Yes GRACY BRADSHAW MD Aug 13, 2020 13:40
--- NOTE | 2020-08-13 15:00 | NUR ---
Patient transferred to room 206. Report given to BONG He.
[2020-08-14] VITALS (13 sets, daily range): BP systolic 100–153; BP diastolic 59–77
[2020-08-14] MEDS: MILRINONE 20MG/100ML PREMIX 100 ML IV PRN (02:55)
[2020-08-14] MEDS: PANTOPRAZOLE 40 MG TABLET.DR. PO SCH (07:30)
[2020-08-14 07:31] LABS: ALBUMIN 2.7 g/dL (3.4-5.0); ALBUMIN/GLOBULIN RATIO 0.8 (1.0-1.7); CREATININE 1.4 mg/dL (0.7-1.3); GFR 49.5; POTASSIUM 3.7 mmol/L (3.5-5.1); TOTAL BILIRUBIN 3.2 mg/dL (0.2-1.0)
--- NOTE | 2020-08-14 07:42 | PDOC ---
[facility] PROGRESS NOTE Date of Service DOS: DATE: 08/14/20 TIME: 07:41 Chief Complaint Chief Complaint A/P: Acute hypoxic respiratory distress due to acute on chronic systolic CHF, LVEF of 30 to 35% Paroxysmal AFIB with RVR Troponin elevation - type II NSTEMI likely due to demand ischemia Cardiomyopathy; LVEF 30-35%. 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 Strict I's and O's Electrolyte replacement IV as needed Continue cvc bed Eliquis for DVT prophylaxis Protonix GI prophylaxis Cardiac diet Full code Discussed with RN and SW Disposition inpatient management as above Surrogate decision maker is the stop digoxin and aldactone for now. Restart toprol but will decrease dosing. Stop cardizem. History of Present Illness History of Present Illness Mr Kruger is a 75 yo M with history of HTN, AF on eliquis, COPD, who p/w SOA over 3-4 days prior to hospitalization. Had a brief transient episode of CP yesterday which resolved within minutes. No current CP. Reports baseline chronic cough as well. Ran out of lasix about a week ago. No fever, chills, abd pain, N/V/D. No aggravating or alleviating factors. 08/12: No acute events overnight. Milrinone drip was started yesterday. Pending nephrology evaluation for elevated creatinine and decreased creatinine clearance. Patient's chart, labs, images were reviewed and discussed with RN 08/13: No acute events tonight. Patient is -1.5 L output. No complaints voiced at this time. Patient's chart, labs, images were reviewed and discussed with RN. Downtrending liver enzymes and creatinine. Afebrile. CR down to 1.4. No chest pain. A little short of breath. To cardiac cath today. Vitals/I&O Vitals/I&O: Vital Signs Date Time Temp Pulse Resp B/P (MAP) Pulse Ox O2 Delivery O2 Flow Rate FiO2 08/14/20 03:44 98.1 124 126/69 (88) 98 Nasal Cannula 3.0 98.1 08/13/20 23:20 22 I & O 08/13/20 08/13/20 08/14/20 15:00 23:00 07:00 Intake Total 900 ml 60 ml 120 ml Output Total 1000 ml 250 ml Balance -100 ml -190 ml 120 ml Physical Exam Physical Exam: Physcial Exam: GEN: No apparent distress. Alert and oriented, mildly confused HEENT: Normal cephalic, atraumatic, external auditory canals are patent EYES: Extraocular muscles are intact, pupil are equally round and reactive to light and accommodation MUSCULOSKELETAL: Well developed , well nourished, good range of motion ENDOCRINE: No thyromegaly was palpated LYMPHATICS: No cervical chain or axillary nodes were noted HEMATOPOIETIC: No bruising NECK: Supple, no JVD, no thyromegaly was noted LUNGS: Clear to auscultation in all lung lorenzo without rhonchi or wheezing HEART: RRR, S!, S2 present. Peripheral pulses intact, no obvious murmurs noted ABDOMEN: Soft, nontender. Positive bowel sounds, no organomegaly, normal bowel sounds EXTREMITIES: Without clubbing, cyanosis, or edema. Pedal pulses intact. Negative Homans sign NEUROLOGIC: Normal speech and tone. A&O x 3, moves all extremities, no obvious focal deficits PSYCHIATRIC: Normal affect, normal mood. Stable SKIN: No ulcerations or rashes, good skin turgor, no jaundice VASCULAR: Good capillary refill, neurovascular bundle appears to be intact General: Alert Heart: Regular rate, Normal S1, Normal S2, No murmurs, Gallops Lungs: Clear Abdomen: Normal bowel sounds, Soft, No tenderness, No hepatosplenomegaly, No masses Extremities: No clubbing, No cyanosis, No edema, Normal pulses, No tenderness/swelling Skin: No rashes Labs Labs: Laboratory Tests Test 08/14/20 06:59 Sodium Level 142 mmol/L (136-145) Potassium Level 3.7 mmol/L (3.5-5.1) Chloride Level 107 mmol/L (98-107) Carbon Dioxide Level 28 mmol/L (21-32) Anion Gap 7 (6-14) Blood Urea Nitrogen 21 mg/dL (8-26) Creatinine 1.4 mg/dL (0.7-1.3) Estimated GFR (Cockcroft-Gault) 49.5 BUN/Creatinine Ratio 15 (6-20) Glucose Level 110 mg/dL (70-99) Calcium Level 8.0 mg/dL (8.5-10.1) Total Bilirubin 3.2 mg/dL (0.2-1.0) Aspartate Amino Transf (AST/SGOT) 594 U/L (15-37) Alanine Aminotransferase (ALT/SGPT) 878 U/L (16-63) Alkaline Phosphatase 268 U/L (46-116) Total Protein 6.0 g/dL (6.4-8.2) Albumin 2.7 g/dL (3.4-5.0) Albumin/Globulin Ratio 0.8 (1.0-1.7) Assessment and Plan Assessmemt and Plan Problems Medical Problems: (1) Atrial fibrillation with rapid ventricular response Status: Acute (2) Elevated troponin Status: Acute Comment Review of Relevant I have reviewed the following items ben (where applicable) has been applied. Medications: Current Medications Medications (Trade) Dose Ordered Sig/Marcio Route PRN Reason Start Time Stop Time Status Last Admin Dose Admin Potassium Bicarbonate (Potassium Effervescent Tablet) 40 meq 1X ONCE PO 08/13/20 08:30 08/13/20 08:31 DC 08/13/20 08:36 Justifications for Admission Other Justification Afib RVR SHANI HALE MD Aug 14, 2020 07:42
[2020-08-14] MEDS: ASPIRIN ENTERIC COATED 81 MG TABLET.DR. PO SCH (08:25)
[2020-08-14] MEDS: METOPROLOL SUCC 24HR ER 100 MG TAB.ER.24H. PO SCH (08:26)
[2020-08-14] MEDS: ASCORBIC ACID 500 MG TABLET PO SCH (09:00)
[2020-08-14] MEDS ORDERED: DIGOXIN IV 500 MCG/2 ML AMPUL. IV ONE (09:00)
[2020-08-14] MEDS ORDERED: LIDOCAINE 1% Multi-Dose 20 ML VIAL. ONE (09:29)
[2020-08-14] MEDS ORDERED: IODIXANOL 320 MG/ML 100 ML VIAL. ONE (09:30)
[2020-08-14] MEDS ORDERED: fentaNYL PF VIAL 100 MCG/2 ML VIAL ONE (10:21)
[2020-08-14] MEDS ORDERED: VERAPAMIL 5 MG/2 ML VIAL. ONE (10:22)
[2020-08-14] MEDS ORDERED: HEPARIN for IV BOLUS 10,000 UNIT/10 ML VIAL. ONE (10:22)
[2020-08-14] MEDS ORDERED: MIDAZOLAM HCL/PF 2 MG/2 ML VIAL. ONE (10:22)
[2020-08-14] MEDS ORDERED: NITROGLYCERIN 200 MCG/2 ML SYRINGE FOR CATH/VASC LAB. ONE (10:22)
[2020-08-14] MEDS ORDERED: HEPARIN for IV BOLUS 10,000 UNIT/10 ML VIAL. IART ONE (11:00)
[2020-08-14] MEDS ORDERED: LIDOCAINE 1% Multi-Dose 20 ML VIAL. INJ ONE (11:00)
[2020-08-14] MEDS ORDERED: NITROGLYCERIN 200 MCG/2 ML SYRINGE FOR CATH/VASC LAB. IART ONE (11:00)
[2020-08-14] MEDS ORDERED: fentaNYL PF VIAL 100 MCG/2 ML VIAL IV ONE (11:00)
[2020-08-14] MEDS ORDERED: VERAPAMIL 5 MG/2 ML VIAL. IART ONE (11:00)
[2020-08-14] MEDS ORDERED: MIDAZOLAM HCL/PF 2 MG/2 ML VIAL. IV ONE (11:00)
[2020-08-14] MEDS ORDERED: IODIXANOL 320 MG/ML 100 ML VIAL. IV ONE (11:15)
--- NOTE | 2020-08-14 13:38 | PDOC ---
Renal-Progress Notes Subjective Notes Notes NO NEW COMPLAINTS History of Present Illness Hx of present illness STABLE Vitals Vitals Vital Signs Date Time Temp Pulse Resp B/P (MAP) Pulse Ox O2 Delivery O2 Flow Rate FiO2 08/14/20 11:16 74 18 97 Nasal Cannula 3.0 08/14/20 08:27 107/48 08/14/20 07:00 98.7 98.7 Weight Weight [ ] I.O. Intake and Output Intake and Output 08/14/20 07:00 Intake Total 1180 ml Output Total 2025 ml Balance -845 ml Intake Oral 1180 ml Output Urine Total 2025 ml Labs Labs Laboratory Tests Test 08/14/20 06:59 Sodium Level 142 mmol/L (136-145) Potassium Level 3.7 mmol/L (3.5-5.1) Chloride Level 107 mmol/L (98-107) Carbon Dioxide Level 28 mmol/L (21-32) Anion Gap 7 (6-14) Blood Urea Nitrogen 21 mg/dL (8-26) Creatinine 1.4 mg/dL (0.7-1.3) Estimated GFR (Cockcroft-Gault) 49.5 BUN/Creatinine Ratio 15 (6-20) Glucose Level 110 mg/dL (70-99) Calcium Level 8.0 mg/dL (8.5-10.1) Total Bilirubin 3.2 mg/dL (0.2-1.0) Aspartate Amino Transf (AST/SGOT) 594 U/L (15-37) Alanine Aminotransferase (ALT/SGPT) 878 U/L (16-63) Alkaline Phosphatase 268 U/L (46-116) Total Protein 6.0 g/dL (6.4-8.2) Albumin 2.7 g/dL (3.4-5.0) Albumin/Globulin Ratio 0.8 (1.0-1.7) Review of Systems Constitutional: yes: weakness, alert Ears/Nose/Throat: Yes: no symptom reported Eyes: Yes: no symptom reported Pulmonary: Yes dyspnea Cardiovascular: Yes no symptom reported Gastrointestional: Yes: no symptom reported Genitourinary: Yes: no symptom reported Musculoskeletal: Yes: no symptom reported Skin: Yes no symptom reported Psychiatric/Neurological: Yes: no symptom reported Physical Exam General Appearance: no apparent distress Skin: warm Respiratory: decreased breath sounds Heart: S1S2 Abdomen: soft, bowel sounds present Neurology: alert, oriented Assessment Assessment IMP JOE-RESOLVING WITH CR DWON TO 1.4 HYPOKAELMIA-RESOLVED CM WITH EF OF 30-35% CHRONIC AND ACUTE S CHF P AFIB WITH RVR HEPATIC CONGESTION NON COMPLIANCE PLAN INOTROPES LASIX NEEDS CONTINUED NEG FLUID BALANCE CORRECT K NEEDED CHECK MAG STEVE GONSALVES MD Aug 14, 2020 13:38
--- NOTE | 2020-08-14 14:22 | CARD ---
MR#: [id number] Date of Study: 08/14/2020 Ordering Physician: GRACY OLMOS, Referring Physician: GRACY OLMOS, Tech: Erinn Larson APPROVED REPORT Technologist: Erinn Larson Nurse: Dorothy Coughlin R.N. Procedure(s) performed: fl time: 2.7 min dose: 26 gycm2 contrast: 18 ml moderate sedation: 43 mins LHC, RHC, Coronary angiography HISTORY The patient is a 75 year-old male with a history of : coronary artery disease, tobacco history() , hy pertension, dyslipidemia. INDICATION The indication(s) include : dyspnea, valvular heart disease. CSHA Clinical Frailty Scale CS Clinical Frailty Scale: Severely Frail Heart Failure Heart Failure: Yes If Yes, Newly Diagnosed: No If Yes, HF Type: Diastolic Systolic If Yes, NYHA Class: Class III PROCEDURE NARRATIVE Clinical information: 75-year-old male who presented to the hospital in the setting of dyspnea with known cardiomyopathy an d an elevated troponin. Due to persistent dyspnea and renal failure and dyspnea resistant to diureti cs a plan was made to evaluate his filling pressures and rule out any occult coronary disease after n ormalization of his creatinine. Procedure details: Under 1% lidocaine local anesthesia a 5 Congolese sheath was placed in the right internal jugular vein a nd a 6 Congolese sheath was placed in the right radial artery. Diagnostic angiography was performed wit h a 6 Congolese TIG catheter and a 5 Congolese PA catheter. Pressures and saturations were obtained. At c ase completion the right radial sheath was removed and hemostasis was achieved with a [place] radial b and and the right IJ sheath was removed and hemostasis achieved with manual compression. Findings: RA: 12 mmHg RV 38/19/10 PA 36/20/25 Wedge 15 mmHg LVEDP 10 mmHg No gradient on LV to aortic pullback. Isael cardiac output 5.7 L/min off of any inotropic support Cardiac index 2.7 L/min. Coronary angiography: Left main is a large-caliber vessel without any significant obstructive disease LAD is a moderate caliber calcified vessel with mild diffuse disease of up to 30% Left circumflex is a moderate to large caliber dominant vessel with a patent proximal stent RCA is a small caliber nondominant vessel without any significant disease Conclusion 1. Normal left-sided filling pressures 2. Mild pulmonary hypertension 3. Cor pulmonale 4. Mild to moderate nonobstructive coronary disease with a patent left circumflex stent Recommendations 1. Aggressive medical therapy. No further diuresis necessary. Signed by : Gracy Olmos, Electronically Approved : 08/14/2020 14:22:19
--- NOTE | 2020-08-14 19:30 | NUR ---
Assessment completed vss poc explained pt denied pain at time of assessment. Tr band in place all air is out will continue to monitor pt. call light in reach bed alarm is set.
[2020-08-15 03:00] VITALS: BP 142/84
[2020-08-15] MEDS: PANTOPRAZOLE 40 MG TABLET.DR. PO SCH (06:22)
--- NOTE | 2020-08-15 07:15 | PDOC ---
[facility] PROGRESS NOTE Date of Service DOS: DATE: 08/15/20 TIME: 07:15 Chief Complaint Chief Complaint A/P: Acute hypoxic respiratory distress due to acute on chronic systolic CHF, LVEF of 30 to 35% Paroxysmal AFIB with RVR Troponin elevation - type II NSTEMI likely due to demand ischemia Cardiomyopathy; LVEF 30-35%. 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 Strict I's and O's Electrolyte replacement IV as needed Continue cvc bed Eliquis for DVT prophylaxis Protonix GI prophylaxis Cardiac diet Full code Discussed with RN and SW Disposition inpatient management as above Surrogate decision maker is the stop digoxin and aldactone for now. Restart toprol but will decrease dosing. Stop cardizem. History of Present Illness History of Present Illness Mr Kruger is a 75 yo M PMHx HTN, AF on eliquis, COPD, who p/w SOA over 3-4 days prior to hospitalization. Had a brief transient episode of CP yesterday which resolved within minutes. No current CP. Reports baseline chronic cough as well. Ran out of lasix about a week ago. No fever, chills, abd pain, N/V/D. No aggravating or alleviating factors. Consults: Nephrology, Cardiology 08/12: No acute events overnight. Milrinone drip was started yesterday. Pending nephrology evaluation for elevated creatinine and decreased creatinine clearance. Patient's chart, labs, images were reviewed and discussed with RN 08/13: No acute events tonight. Patient is -1.5 L output. No complaints voiced at this time. Patient's chart, labs, images were reviewed and discussed with RN. Downtrending liver enzymes and creatinine. 08/14: Afebrile. Cr down to 1.4. No chest pain. A little short of breath. To cardiac cath with RA: 12 mmHg, RV 38/19/10, PA 36/20/25, Wedge 15 mmHg, LVEDP 10 mmHg, No gradient on LV to aortic pullback. Coronary angiography: Left main is a large-caliber vessel without any significant obstructive disease, LAD is a moderate caliber calcified vessel with mild diffuse disease of up to 30%, Left circumflex is a moderate to large caliber dominant vessel with a patent proximal stent, and RCA is a small caliber nondominant vessel without any significant disease Afebrile. No O2 needs on 6 minute walk. Cr. 1. Feeling less short of breath. He notes he goes to [facility], sees a Dr. James. Wishes for home health on discharge. Right and left heart cath overall findings: 1. Normal left-sided filling pressures 2. Mild pulmonary hypertension 3. Cor pulmonale 4. Mild to moderate nonobstructive coronary disease with a patent left circumflex stent Vitals/I&O Vitals/I&O: Vital Signs Date Time Temp Pulse Resp B/P (MAP) Pulse Ox O2 Delivery O2 Flow Rate FiO2 08/15/20 03:00 98.7 105 18 142/84 (103) 97 Room Air 98.7 08/14/20 22:33 3.0 I & O 08/14/20 08/14/20 08/15/20 15:00 23:00 07:00 Intake Total 0 ml 628 ml 580 ml Output Total 800 ml 250 ml Balance 0 ml -172 ml 330 ml Physical Exam Physical Exam: Physcial Exam: GEN: No apparent distress. Alert and oriented, mildly confused HEENT: Normal cephalic, atraumatic, external auditory canals are patent EYES: Extraocular muscles are intact, pupil are equally round and reactive to light and accommodation MUSCULOSKELETAL: Well developed , well nourished, good range of motion ENDOCRINE: No thyromegaly was palpated LYMPHATICS: No cervical chain or axillary nodes were noted HEMATOPOIETIC: No bruising NECK: Supple, no JVD, no thyromegaly was noted LUNGS: Clear to auscultation in all lung lorenzo without rhonchi or wheezing HEART: RRR, S!, S2 present. Peripheral pulses intact, no obvious murmurs noted ABDOMEN: Soft, nontender. Positive bowel sounds, no organomegaly, normal bowel sounds EXTREMITIES: Without clubbing, cyanosis, or edema. Pedal pulses intact. Negative Homans sign NEUROLOGIC: Normal speech and tone. A&O x 3, moves all extremities, no obvious focal deficits PSYCHIATRIC: Normal affect, normal mood. Stable SKIN: No ulcerations or rashes, good skin turgor, no jaundice VASCULAR: Good capillary refill, neurovascular bundle appears to be intact General: Alert Heart: Regular rate, Normal S1, Normal S2, No murmurs, Gallops Lungs: Clear Abdomen: Normal bowel sounds, Soft, No tenderness, No hepatosplenomegaly, No masses Extremities: No clubbing, No cyanosis, No edema, Normal pulses, No tenderness/swelling Skin: No rashes Assessment and Plan Assessmemt and Plan Problems Medical Problems: (1) Atrial fibrillation with rapid ventricular response Status: Acute (2) Elevated troponin Status: Acute Comment Review of Relevant I have reviewed the following items ben (where applicable) has been applied. Medications: Current Medications Medications (Trade) Dose Ordered Sig/Marcio Route PRN Reason Start Time Stop Time Status Last Admin Dose Admin Digoxin (Lanoxin) 250 mcg 1X ONCE IV 08/14/20 09:00 08/14/20 09:01 DC 08/14/20 08:27 Nitroglycerin (Nitroglycerin) 200 mcg 1X ONCE IART 08/14/20 11:00 08/14/20 11:05 DC 08/14/20 11:00 Verapamil HCl (Verapamil) 2.5 mg 1X ONCE IART 08/14/20 11:00 08/14/20 11:05 DC 08/14/20 11:00 Heparin Sodium (Porcine) (Heparin Sodium) 2,500 unit 1X ONCE IART 08/14/20 11:00 08/14/20 11:05 DC 08/14/20 11:00 Heparin Sodium/ Sodium Chloride (HEPARIN for ARTERIAL LINE FLUSH) 1,000 unit 1X ONCE IART 08/14/20 11:00 08/14/20 11:06 DC 08/14/20 11:00 Midazolam HCl (Versed) 0.5 mg 1X ONCE IV 08/14/20 11:00 08/14/20 11:06 DC 08/14/20 10:33 Fentanyl Citrate (Fentanyl 2ml Vial) 25 mcg 1X ONCE IV 08/14/20 11:00 08/14/20 11:10 DC 08/14/20 10:33 Lidocaine HCl (Lidocaine 1% 20ml Vial) 20 ml 1X ONCE INJ 08/14/20 11:00 08/14/20 11:06 DC 08/14/20 11:00 Iodixanol (Visipaque 320) 18 ml 1X ONCE IV 08/14/20 11:15 08/14/20 11:16 DC 08/14/20 11:08 Justifications for Admission Other Justification Afib RVR SHANI HALE MD Aug 15, 2020 07:15
[2020-08-15 07:26] VITALS: BP 150/80
[2020-08-15] MEDS: ASPIRIN ENTERIC COATED 81 MG TABLET.DR. PO SCH (08:41)
[2020-08-15] MEDS: ASCORBIC ACID 500 MG TABLET PO SCH (08:41)
[2020-08-15] MEDS: METOPROLOL SUCC 24HR ER 100 MG TAB.ER.24H. PO SCH (08:44)
[2020-08-15] MEDS ORDERED: FUROSEMIDE 40 MG TABLET. PO SCH (09:00)
[2020-08-15 09:08] LABS: BASO # 0.1 x10^3/uL (0.0-0.2); BASO % 1 % (0-3); EOS # 0.2 x10^3/uL (0.0-0.7); EOS % 2 % (0-3); HEMATOCRIT 39.5 % (39.0-53.0); HEMOGLOBIN 12.8 g/dL (13.0-17.5); LYMPH # 2.2 x10^3/uL (1.0-4.8); LYMPH % 20 % (24-48); MEAN CORPUSCULAR HEMOGLOBIN 29 pg (25-35); MEAN CORPUSCULAR HGB CONC 33 g/dL (31-37); MEAN CORPUSCULAR VOLUME 88 fL (79-100); MONO # 1.1 x10^3/uL (0.0-1.1); MONO % 10 % (0-9); NEUT # 7.4 x10^3/uL (1.8-7.7); NEUT % 67 % (31-73); PLATELET COUNT 142 x10^3/uL (140-400); RED BLOOD COUNT 4.48 x10^6/uL (4.30-5.70); RED CELL DISTRIBUTION WIDTH 16.5 % (11.5-14.5); WHITE BLOOD COUNT 11.1 x10^3/uL (4.0-11.0)
[2020-08-15 09:24] LABS: ALBUMIN 2.8 g/dL (3.4-5.0); ALBUMIN/GLOBULIN RATIO 0.8 (1.0-1.7); CALCIUM 8.1 mg/dL (8.5-10.1); CREATININE 1.1 mg/dL (0.7-1.3); GFR 65.4; POTASSIUM 3.7 mmol/L (3.5-5.1); TOTAL BILIRUBIN 3.1 mg/dL (0.2-1.0); TOTAL PROTEIN 6.3 g/dL (6.4-8.2)
[2020-08-15 09:32] LABS: PROTHROMBIN TIME PATIENT 17.2 SEC (11.7-14.0)
[2020-08-15 09:48] LABS: PHOSPHORUS 2.3 mg/dL (2.6-4.7)
[2020-08-15 10:39] VITALS: BP 150/79
[2020-08-15] MEDS ORDERED: LOSARTAN POTASSIUM 25 MG TABLET. PO SCH (11:00)
[2020-08-15] MEDS ORDERED: LISINOPRIL 5 MG TABLET. PO SCH (12:00)
--- NOTE | 2020-08-15 12:09 | PDOC3 ---
Discharge Summary Visit Information Date of Admission: Aug 09, 2020 Date of Discharge: Aug 15, 2020 Admitting Diagnosis: Afib with RVR Final Diagnosis Problems Medical Problems: (1) Atrial fibrillation with rapid ventricular response Status: Acute (2) Elevated troponin Status: Acute Brief Hospital Course Allergies Allergies Coded Allergies Type Severity Reaction Last Updated Verified No Known Drug Allergies 05/11/20 No Vital Signs Vital Signs Date Time Temp Pulse Resp B/P (MAP) Pulse Ox O2 Delivery O2 Flow Rate FiO2 08/15/20 10:39 98.0 117 22 150/79 (102) 95 Nasal Cannula 2.0 98.0 Lab Results Laboratory Tests Test 08/14/20 06:59 08/15/20 06:05 08/15/20 09:00 Sodium Level 142 mmol/L (136-145) 142 mmol/L (136-145) Potassium Level 3.7 mmol/L (3.5-5.1) 3.7 mmol/L (3.5-5.1) Chloride Level 107 mmol/L (98-107) 104 mmol/L (98-107) Carbon Dioxide Level 28 mmol/L (21-32) 27 mmol/L (21-32) Anion Gap 7 (6-14) 11 (6-14) Blood Urea Nitrogen 21 mg/dL (8-26) 18 mg/dL (8-26) Creatinine 1.4 mg/dL (0.7-1.3) 1.1 mg/dL (0.7-1.3) Estimated GFR (Cockcroft-Gault) 49.5 65.4 BUN/Creatinine Ratio 15 (6-20) 16 (6-20) Glucose Level 110 mg/dL (70-99) 83 mg/dL (70-99) Calcium Level 8.0 mg/dL (8.5-10.1) 8.1 mg/dL (8.5-10.1) Total Bilirubin 3.2 mg/dL (0.2-1.0) 3.1 mg/dL (0.2-1.0) Aspartate Amino Transf (AST/SGOT) 594 U/L (15-37) 281 U/L (15-37) Alanine Aminotransferase (ALT/SGPT) 878 U/L (16-63) 668 U/L (16-63) Alkaline Phosphatase 268 U/L (46-116) 274 U/L (46-116) Total Protein 6.0 g/dL (6.4-8.2) 6.3 g/dL (6.4-8.2) Albumin 2.7 g/dL (3.4-5.0) 2.8 g/dL (3.4-5.0) Albumin/Globulin Ratio 0.8 (1.0-1.7) 0.8 (1.0-1.7) White Blood Count 11.1 x10^3/uL (4.0-11.0) Red Blood Count 4.48 x10^6/uL (4.30-5.70) Hemoglobin 12.8 g/dL (13.0-17.5) Hematocrit 39.5 % (39.0-53.0) Mean Corpuscular Volume 88 fL (79-100) Mean Corpuscular Hemoglobin 29 pg (25-35) Mean Corpuscular Hemoglobin Concent 33 g/dL (31-37) Red Cell Distribution Width 16.5 % (11.5-14.5) Platelet Count 142 x10^3/uL (140-400) Neutrophils (%) (Auto) 67 % (31-73) Lymphocytes (%) (Auto) 20 % (24-48) Monocytes (%) (Auto) 10 % (0-9) Eosinophils (%) (Auto) 2 % (0-3) Basophils (%) (Auto) 1 % (0-3) Neutrophils # (Auto) 7.4 x10^3/uL (1.8-7.7) Lymphocytes # (Auto) 2.2 x10^3/uL (1.0-4.8) Monocytes # (Auto) 1.1 x10^3/uL (0.0-1.1) Eosinophils # (Auto) 0.2 x10^3/uL (0.0-0.7) Basophils # (Auto) 0.1 x10^3/uL (0.0-0.2) Phosphorus Level 2.3 mg/dL (2.6-4.7) Magnesium Level 2.0 mg/dL (1.8-2.4) Prothrombin Time 17.2 SEC (11.7-14.0) Prothromb Time International Ratio 1.4 (0.8-1.1) Laboratory Tests Test 08/15/20 06:05 08/15/20 09:00 White Blood Count 11.1 x10^3/uL (4.0-11.0) Red Blood Count 4.48 x10^6/uL (4.30-5.70) Hemoglobin 12.8 g/dL (13.0-17.5) Hematocrit 39.5 % (39.0-53.0) Mean Corpuscular Volume 88 fL (79-100) Mean Corpuscular Hemoglobin 29 pg (25-35) Mean Corpuscular Hemoglobin Concent 33 g/dL (31-37) Red Cell Distribution Width 16.5 % (11.5-14.5) Platelet Count 142 x10^3/uL (140-400) Neutrophils (%) (Auto) 67 % (31-73) Lymphocytes (%) (Auto) 20 % (24-48) Monocytes (%) (Auto) 10 % (0-9) Eosinophils (%) (Auto) 2 % (0-3) Basophils (%) (Auto) 1 % (0-3) Neutrophils # (Auto) 7.4 x10^3/uL (1.8-7.7) Lymphocytes # (Auto) 2.2 x10^3/uL (1.0-4.8) Monocytes # (Auto) 1.1 x10^3/uL (0.0-1.1) Eosinophils # (Auto) 0.2 x10^3/uL (0.0-0.7) Basophils # (Auto) 0.1 x10^3/uL (0.0-0.2) Sodium Level 142 mmol/L (136-145) Potassium Level 3.7 mmol/L (3.5-5.1) Chloride Level 104 mmol/L (98-107) Carbon Dioxide Level 27 mmol/L (21-32) Anion Gap 11 (6-14) Blood Urea Nitrogen 18 mg/dL (8-26) Creatinine 1.1 mg/dL (0.7-1.3) Estimated GFR (Cockcroft-Gault) 65.4 BUN/Creatinine Ratio 16 (6-20) Glucose Level 83 mg/dL (70-99) Calcium Level 8.1 mg/dL (8.5-10.1) Phosphorus Level 2.3 mg/dL (2.6-4.7) Magnesium Level 2.0 mg/dL (1.8-2.4) Total Bilirubin 3.1 mg/dL (0.2-1.0) Aspartate Amino Transf (AST/SGOT) 281 U/L (15-37) Alanine Aminotransferase (ALT/SGPT) 668 U/L (16-63) Alkaline Phosphatase 274 U/L (46-116) Total Protein 6.3 g/dL (6.4-8.2) Albumin 2.8 g/dL (3.4-5.0) Albumin/Globulin Ratio 0.8 (1.0-1.7) Prothrombin Time 17.2 SEC (11.7-14.0) Prothromb Time International Ratio 1.4 (0.8-1.1) Brief Hospital Course Mr Kruger is a 75 yo M PMHx HTN, AF on eliquis, COPD, who p/w SOA over 3-4 days prior to hospitalization. Had a brief transient episode of CP which resolved within minutes. No current CP. Reports baseline chronic cough as well. Ran out of lasix about a week prior to admit. No fever, chills, abd pain, N/V/D. No aggravating or alleviating factors. He was noted with a TSH of 1.010 and free T4 1.47 and was in atrial flutter 2:1 with rapid ventricular response initially requiring diltiazem bolus and infusion and digoxin.. Consults: Nephrology, Cardiology 08/12: No acute events overnight. Milrinone drip was started yesterday. Pending nephrology evaluation for elevated creatinine and decreased creatinine clearance. Patient's chart, labs, images were reviewed and discussed with RN 08/13: No acute events tonight. Patient is -1.5 L output. No complaints voiced at this time. Patient's chart, labs, images were reviewed and discussed with RN. Downtrending liver enzymes and creatinine. 08/14: Afebrile. Cr down to 1.4. No chest pain. A little short of breath. To cardiac cath with RA: 12 mmHg, RV 38/19/10, PA 36/20/25, Wedge 15 mmHg, LVEDP 10 mmHg, No gradient on LV to aortic pullback. Coronary angiography: Left main is a large-caliber vessel without any significant obstructive disease, LAD is a moderate caliber calcified vessel with mild diffuse disease of up to 30%, Left circumflex is a moderate to large caliber dominant vessel with a patent proximal stent, and RCA is a small caliber nondominant vessel without any significant disease Afebrile. No O2 needs on 6 minute walk. Cr. 1. Feeling less short of breath. He notes he goes to [facility], sees a Dr. James. Wishes for home health on discharge. Notes he has had hyperthyroidism for "years". Does not wish for endocrinology referral or to continue methimazole. He has follow-up with [facility] and will follow up with cardiology outpatient. Started on low-dose lisinopril.his creatinine is improved. Problem list: Acute hypoxic respiratory distress due to acute on chronic systolic CHF, LVEF of 30 to 35% Paroxysmal AFIB with RVR Troponin elevation - type II NSTEMI likely due to demand ischemia Cardiomyopathy; LVEF 30-35%. CAD; recent cath with 2-vessel disease PAD JOE due to vasomotor nephropathy - cardiorenal syndrome Transaminitis due to CHF exacerbation leading to shock liver as well as hyperthyroidism was started on methimazole he does not want further dosing for this. Hypokalemia Hyperthyroidism plan Strict I's and O's Electrolyte replacement IV as needed Continue cvc bed Eliquis for DVT prophylaxis Protonix GI prophylaxis Cardiac diet Full code Heart cath: 1. Normal left-sided filling pressures 2. Mild pulmonary hypertension 3. Cor pulmonale 4. Mild to moderate nonobstructive coronary disease with a patent left circumflex stent Surrogate decision maker is the Stop digoxin and aldactone for now. Restart toprol but will decrease dosing. Stop cardizem. Greater than 30 minutes spent on d/c home with home health. Discharge Information Condition at Discharge: Improved Follow Up: Weeks (1) Disposition/Orders: D/C to Home w/ HH Scheduled Apixaban (Eliquis) 5 Mg Tablet, 5 MG PO BID for Atrial fibrillation for 30 Days, #60 Ref 3 Prescribed by: SHANI HALE MD on 08/15/20 1215 Ascorbic Acid (Vitamin C) 500 Mg Tablet, 500 MG PO DAILY for supplement for 30 Days, #30 Prescribed by: LAUREL GLASS MD on 04/06/19 1627 Last Action: Continued on 08/10/20 0843 by IVET WINN MD Aspirin (Aspirin Ec) 81 Mg Tablet.dr, 81 MG PO DAILYWBKFT for heart health for 30 Days, #30 Prescribed by: LAUREL GLASS MD on 08/31/19 1052 Last Action: Continued on 08/10/20842 by IVET WINN MD Budesonide/Formoterol Fumarate (Symbicort 80-4.5 Mcg Inhaler) 10.2 Gm Hfa.aer.ad, 2 PUFF IH BID for COPD, #10.2 Ref 5 (Reported) Entered as Reported by: CHAPIS ROY RN on 03/13/19 1635 Ipratropium/Albuterol Sulfate (Duoneb 0.5-3(2.5) Mg/3 Ml) 3 Ml Ampul.neb, 3 ML NEB RTQID for copd for 30 Days, #120 Prescribed by: LAUREL GLASS MD on 08/31/19 1052 Last Action: HELD on 08/10/20842 by IVET WINN MD Lisinopril (Lisinopril) 5 Mg Tablet, 5 MG PO DAILY for CHF for 30 Days, #30 Ref 2 Prescribed by: SHANI HALE MD on 08/15/20 1215 Metoprolol Succinate (Metoprolol Succinate ( Xl )) 100 Mg Tab.er.24h, 50 MG PO DAILY for CHF/AFIB for 90 Days, #45 Ref 3 Prescribed by: SHANI HALE MD on 08/15/20 1215 Multivits,Ca,Minerals/Iron/Fa (Thera-M Tablet) 1 Each Tablet, 1 TAB PO DAILY for supplement for 30 Days, #30 Prescribed by: LAUREL GLASS MD on 04/06/19 1627 Pantoprazole Sodium (Pantoprazole Sodium ) 40 Mg Tablet.dr, 40 MG PO DAILYAC for gi supplement for 30 Days, #30 Prescribed by: SHANI HALE MD on 08/15/20 1215 Potassium Chloride (Klor-Con M20) 20 Meq Tab.er.prt, 20 MEQ PO DAILYWBKFT for Hypokalemia for 30 Days, #30 Prescribed by: SHANI HALE MD on 03/16/19 1301 Scheduled PRN Acetaminophen (Acetaminophen) 500 Mg Tablet, 500 MG PO PRN Q6HRS PRN for MILD PAIN / TEMP for 30 Days, #60 Prescribed by: LAUREL GLASS MD on 08/31/19 1052 Bisacodyl (Bisacodyl) 5 Mg Tablet.dr, 5 MG PO PRN DAILY PRN for CONSTIPATION for 14 Days, #30 Prescribed by: LAUREL GLASS MD on 08/31/19 1052 Furosemide (Furosemide) 20 Mg Tablet, 1 TAB PO PRN DAILY PRN for Swelling/weight gain for 30 Days, #30 Ref 1 For weight gain > 1 Kg. Dry weight 75.8 KG Prescribed by: SHANI HALE MD on 08/15/20 1217 Oxycodone/Apap 5-325 (Percocet 5-325 Mg Tablet ) 1 Each Tablet, 1 TAB PO PRN Q6HRS PRN for PAIN for 6 Days, #15 Ref 0 Prescribed by: SHANI HALE MD on 03/16/19 1301 Polyethylene Glycol 3350 (Polyethylene Glycol 3350) 17 Gm Powd.pack, 17 GM PO PRN DAILY PRN for constipation for 28 Days, #30 Prescribed by: LAUREL GLASS MD on 08/31/19 1052 Last Action: Continued on 08/10/20 0843 by IVET WINN MD Discontinued Medications Digoxin (Digoxin) 125 Mcg Tablet, 125 MCG PO DAILY for heart for 30 Days, #30 Prescribed by: LAUREL GLASS MD on 08/31/19 1052 Last Action: Continued on 08/10/20 0843 by IVET WINN MD Metoprolol Tartrate (Metoprolol Tartrate) 50 Mg Tablet, 1 TAB PO BID for hypertension, #60 Ref 5 (Reported) Entered as Reported by: ELIZA CHENG on 03/12/19 0335 Last Action: Continued on 08/10/20 0843 by IVET WINN MD Spironolactone (Spironolactone) 25 Mg Tablet, 1 TAB PO DAILY for , #90 Ref 1 (Reported) Entered as Reported by: DARVIN WOLF RN on 08/10/201204 Last Action: New Order on 08/10/201204 by DARVIN WOLF RN Justicifation of Admission Dx: Justifications for Admission: Justification of Admission Dx: Yes SHANI HALE MD Aug 15, 2020:08
[2020-08-15] MEDS ORDERED: APIX5TAB PO (12:15)
[2020-08-15] MEDS ORDERED: PANT40TA77 PO (12:15)
[2020-08-15] MEDS ORDERED: METO-247 PO (12:15)
[2020-08-15] MEDS ORDERED: LISI-338 PO (12:15)
[2020-08-15] MEDS ORDERED: FURO20TA3 PO (12:17)
--- NOTE | 2020-08-15 12:21 | SNU/HH DC ---
DISCHARGE WITH HOME HEALTH DISCHARGE INFORMATION: Discharge Date: Aug 15, 2020 Final Diagnosis: Problems Medical Problems: (1) Atrial fibrillation with rapid ventricular response Status: Acute (2) Elevated troponin Status: Acute Condition on Discharge: Stable CODE STATUS: Code Status: Full HOME HEALTH: Face to Face: I certify this patient is under my care and that I, or a nurse practitioner or physician's water quality assistant working with me, had a face to face encounter that meets the physician face to face encounter requirements with this patient on 08/15/2020. Medical Complications: CHF RN For Eval/Treatment: Yes Physical Therapy For: Evalulation/Treatment Occupational Therapy For: Evaluation/Treatment Home Health Aide For: Self-care Pt Meets Homebound Status: Extreme weakness w/ amb., Limited distance walking POST DISCHARGE ORDERS: Activity Instructions for Disc: Resume previous activity, Activity as tolerated Weight Bearing Status after Di: Full weight bearing, As tolerated Bathing Instructions: Shower-keep dressing dry DIET AFTER DISCHARGE: Cardiac Wound/Incision Care: Change dressing, Reinforce dressing PRN CHECKS AFTER DISCHARGE: Checks after discharge: Check blood press - daily, Weigh Yourself Daily (Dry weight 75.8kg) FOLLOW-UP: PCP to follow Home Health: Dr. James - [facility] [place] Follow up with: Dr. Asim Olmos - 30 days TREATMENT/EQUIPMENT ORDERS: Adaptive Equipment Issued: None CERTIFICATION STATEMENT: Certification Statement: Certification Statement: Based on the above finding, I certify that this patient is confined to the home and needs intermittent senior care care, physical therapy and/or speech therapy, or continues to need occupational therapy.~ This patient is under my care, and I have initiated the establishment of the plan of care.~ This patient will be followed by myself or a community physician who will periodically review the plan of care. Home Meds Active Scripts Furosemide (FUROSEMIDE) 20 Mg Tablet, 1 TAB PO PRN DAILY PRN for Swelling/weight gain for 30 Days, #30 TAB 1 Refill For weight gain > 1 Kg. Dry weight 75.8 KG Prov:SHANI HALE MD 08/15/20 Lisinopril (LISINOPRIL) 5 Mg Tablet, 5 MG PO DAILY for CHF for 30 Days, #30 TAB 2 Refills Prov:SHANI HALE MD 08/15/20 Metoprolol Succinate (METOPROLOL SUCCINATE ( XL )) 100 Mg Tab.er.24h, 50 MG PO DAILY for CHF/AFIB for 90 Days, #45 TAB.SR 3 Refills Prov:SHANI HALE MD 08/15/20 Apixaban (ELIQUIS) 5 Mg Tablet, 5 MG PO BID for Atrial fibrillation for 30 Days, #60 TAB 3 Refills Prov:SHANI HALE MD 08/15/20 Pantoprazole Sodium (PANTOPRAZOLE SODIUM ) 40 Mg Tablet., 40 MG PO DAILYAC for gi supplement for 30 Days, #30 TAB.SR Prov:SHANI HALE MD 08/15/20 Polyethylene Glycol 3350 (POLYETHYLENE GLYCOL 3350) 17 Gm Powd.pack, 17 GM PO PRN DAILY PRN for constipation for 28 Days, #30 PKT Prov:LAUREL GLASS MD 08/31/19 Bisacodyl (BISACODYL) 5 Mg Tablet., 5 MG PO PRN DAILY PRN for CONSTIPATION for 14 Days, #30 TAB.SR Prov:LAUREL GLASS MD 08/31/19 Acetaminophen (ACETAMINOPHEN) 500 Mg Tablet, 500 MG PO PRN Q6HRS PRN for MILD PAIN / TEMP for 30 Days, #60 TAB Prov:LAUREL GLASS MD 08/31/19 Aspirin (ASPIRIN EC) 81 Mg Tablet., 81 MG PO DAILYWBKFT for heart health for 30 Days, #30 TAB.SR Prov:LAUREL GLASS MD 08/31/19 Ipratropium/Albuterol Sulfate (DUONEB 0.5-3(2.5) MG/3 ML) 3 Ml Ampul.neb, 3 ML NEB RTQID for copd for 30 Days, #120 EACH Prov:LAUREL GLASS MD 08/31/19 Ascorbic Acid (VITAMIN C) 500 Mg Tablet, 500 MG PO DAILY for supplement for 30 Days, #30 TAB Prov:LAUREL GLASS MD 04/06/19 Multivits,Ca,Minerals/Iron/Fa (THERA-M TABLET) 1 Each Tablet, 1 TAB PO DAILY for supplement for 30 Days, #30 TAB Prov:LAUREL GLASS MD 04/06/19 Potassium Chloride (KLOR-CON M20) 20 Meq Tab.er.prt, 20 MEQ PO DAILYWBKFT for Hypokalemia for 30 Days, #30 TAB.SR Prov:SHANI HALE MD 03/16/19 Oxycodone/Apap 5-325 (PERCOCET 5-325 MG TABLET ) 1 Each Tablet, 1 TAB PO PRN Q6HRS PRN for PAIN for 6 Days, #15 TAB 0 Refills Prov:SHANI HALE MD 03/16/19 Reported Medications Budesonide/Formoterol Fumarate (SYMBICORT 80-4.5 MCG INHALER) 10.2 Gm Hfa.aer.ad, 2 PUFF IH BID for COPD, #10.2 GM 5 Refills 03/13/19 Discontinued Reported Medications Spironolactone (SPIRONOLACTONE) 25 Mg Tablet, 1 TAB PO DAILY for , #90 TAB 1 Refill 08/10/20 Metoprolol Tartrate (METOPROLOL TARTRATE) 50 Mg Tablet, 1 TAB PO BID for hypertension, #60 TAB 5 Refills 03/12/19 Discontinued Scripts Digoxin (DIGOXIN) 125 Mcg Tablet, 125 MCG PO DAILY for heart for 30 Days, #30 TAB Prov:LAUREL GLASS MD 08/31/19 SHANI HALE MD Aug 15, 2020 12:21
--- NOTE | 2020-08-15 12:42 | PDOC ---
Renal-Progress Notes Subjective Notes Notes NO NEW COMPLAINTS History of Present Illness Hx of present illness STABLE Vitals Vitals Vital Signs Date Time Temp Pulse Resp B/P (MAP) Pulse Ox O2 Delivery O2 Flow Rate FiO2 08/15/20 12:01 115 08/15/20 10:39 98.0 22 150/79 (102) 95 Nasal Cannula 2.0 98.0 Weight Weight [ ] I.O. Intake and Output Intake and Output 08/15/20 07:00 Intake Total 1208 ml Output Total 1050 ml Balance 158 ml Intake Oral 1208 ml Output Urine Total 1050 ml # Voids 2 Labs Labs Laboratory Tests Test 08/15/20 06:05 08/15/20 09:00 White Blood Count 11.1 x10^3/uL (4.0-11.0) Red Blood Count 4.48 x10^6/uL (4.30-5.70) Hemoglobin 12.8 g/dL (13.0-17.5) Hematocrit 39.5 % (39.0-53.0) Mean Corpuscular Volume 88 fL (79-100) Mean Corpuscular Hemoglobin 29 pg (25-35) Mean Corpuscular Hemoglobin Concent 33 g/dL (31-37) Red Cell Distribution Width 16.5 % (11.5-14.5) Platelet Count 142 x10^3/uL (140-400) Neutrophils (%) (Auto) 67 % (31-73) Lymphocytes (%) (Auto) 20 % (24-48) Monocytes (%) (Auto) 10 % (0-9) Eosinophils (%) (Auto) 2 % (0-3) Basophils (%) (Auto) 1 % (0-3) Neutrophils # (Auto) 7.4 x10^3/uL (1.8-7.7) Lymphocytes # (Auto) 2.2 x10^3/uL (1.0-4.8) Monocytes # (Auto) 1.1 x10^3/uL (0.0-1.1) Eosinophils # (Auto) 0.2 x10^3/uL (0.0-0.7) Basophils # (Auto) 0.1 x10^3/uL (0.0-0.2) Sodium Level 142 mmol/L (136-145) Potassium Level 3.7 mmol/L (3.5-5.1) Chloride Level 104 mmol/L (98-107) Carbon Dioxide Level 27 mmol/L (21-32) Anion Gap 11 (6-14) Blood Urea Nitrogen 18 mg/dL (8-26) Creatinine 1.1 mg/dL (0.7-1.3) Estimated GFR (Cockcroft-Gault) 65.4 BUN/Creatinine Ratio 16 (6-20) Glucose Level 83 mg/dL (70-99) Calcium Level 8.1 mg/dL (8.5-10.1) Phosphorus Level 2.3 mg/dL (2.6-4.7) Magnesium Level 2.0 mg/dL (1.8-2.4) Total Bilirubin 3.1 mg/dL (0.2-1.0) Aspartate Amino Transf (AST/SGOT) 281 U/L (15-37) Alanine Aminotransferase (ALT/SGPT) 668 U/L (16-63) Alkaline Phosphatase 274 U/L (46-116) Total Protein 6.3 g/dL (6.4-8.2) Albumin 2.8 g/dL (3.4-5.0) Albumin/Globulin Ratio 0.8 (1.0-1.7) Prothrombin Time 17.2 SEC (11.7-14.0) Prothromb Time International Ratio 1.4 (0.8-1.1) Review of Systems Constitutional: yes: weakness, alert Ears/Nose/Throat: Yes: no symptom reported Eyes: Yes: no symptom reported Pulmonary: Yes dyspnea Cardiovascular: Yes no symptom reported Gastrointestional: Yes: no symptom reported Genitourinary: Yes: no symptom reported Musculoskeletal: Yes: no symptom reported Skin: Yes no symptom reported Psychiatric/Neurological: Yes: no symptom reported Physical Exam General Appearance: no apparent distress Skin: warm Respiratory: decreased breath sounds Heart: S1S2 Abdomen: soft, bowel sounds present Neurology: alert, oriented Assessment Assessment IMP JOE-RESOLVED HYPOKAELMIA-RESOLVED LOW PO4 CM WITH EF OF 30-35% CHRONIC AND ACUTE S CHF P AFIB WITH RVR HEPATIC CONGESTION-IMPROVING LFT'S NON COMPLIANCE PLAN INOTROPES LASIX NEEDS CONTINUED NEG FLUID BALANCE CORRECT K NEEDED REPLACE STEVE HAMILTON MD Aug 15, 2020 12:42
[2020-08-15] MEDS ORDERED: POTASSIUM PHOS,M-BASIC-D-BASIC 10 MMOL in IV NORMAL SALINE 100ML 100 ML IV SCH (13:00)
--- NOTE | 2020-08-15 13:28 | PDOC ---
EARLINE MADISON [employer] 08/15/20 1328: CARDIO Progress Notes Date and Time Date of Service 08/15/2020 Time of Evaluation 1050 Subjective Subjective: No Chest Pain, No shortness of breath, No Palpitations Vitals Vitals Vital Signs Date Time Temp Pulse Resp B/P (MAP) Pulse Ox O2 Delivery O2 Flow Rate FiO2 08/15/20 12:01 115 08/15/20 10:39 98.0 22 150/79 (102) 95 Nasal Cannula 2.0 98.0 Weight Weight [ ] Input and Output Intake and Output Intake and Output 08/15/20 07:00 Intake Total 1208 ml Output Total 1050 ml Balance 158 ml Intake Oral 1208 ml Output Urine Total 1050 ml # Voids 2 Laboratory Labs Laboratory Tests Test 08/15/20 06:05 08/15/20 09:00 White Blood Count 11.1 x10^3/uL (4.0-11.0) Red Blood Count 4.48 x10^6/uL (4.30-5.70) Hemoglobin 12.8 g/dL (13.0-17.5) Hematocrit 39.5 % (39.0-53.0) Mean Corpuscular Volume 88 fL (79-100) Mean Corpuscular Hemoglobin 29 pg (25-35) Mean Corpuscular Hemoglobin Concent 33 g/dL (31-37) Red Cell Distribution Width 16.5 % (11.5-14.5) Platelet Count 142 x10^3/uL (140-400) Neutrophils (%) (Auto) 67 % (31-73) Lymphocytes (%) (Auto) 20 % (24-48) Monocytes (%) (Auto) 10 % (0-9) Eosinophils (%) (Auto) 2 % (0-3) Basophils (%) (Auto) 1 % (0-3) Neutrophils # (Auto) 7.4 x10^3/uL (1.8-7.7) Lymphocytes # (Auto) 2.2 x10^3/uL (1.0-4.8) Monocytes # (Auto) 1.1 x10^3/uL (0.0-1.1) Eosinophils # (Auto) 0.2 x10^3/uL (0.0-0.7) Basophils # (Auto) 0.1 x10^3/uL (0.0-0.2) Sodium Level 142 mmol/L (136-145) Potassium Level 3.7 mmol/L (3.5-5.1) Chloride Level 104 mmol/L (98-107) Carbon Dioxide Level 27 mmol/L (21-32) Anion Gap 11 (6-14) Blood Urea Nitrogen 18 mg/dL (8-26) Creatinine 1.1 mg/dL (0.7-1.3) Estimated GFR (Cockcroft-Gault) 65.4 BUN/Creatinine Ratio 16 (6-20) Glucose Level 83 mg/dL (70-99) Calcium Level 8.1 mg/dL (8.5-10.1) Phosphorus Level 2.3 mg/dL (2.6-4.7) Magnesium Level 2.0 mg/dL (1.8-2.4) Total Bilirubin 3.1 mg/dL (0.2-1.0) Aspartate Amino Transf (AST/SGOT) 281 U/L (15-37) Alanine Aminotransferase (ALT/SGPT) 668 U/L (16-63) Alkaline Phosphatase 274 U/L (46-116) Total Protein 6.3 g/dL (6.4-8.2) Albumin 2.8 g/dL (3.4-5.0) Albumin/Globulin Ratio 0.8 (1.0-1.7) Prothrombin Time 17.2 SEC (11.7-14.0) Prothromb Time International Ratio 1.4 (0.8-1.1) Review of Systems Constitutional: yes: weakness, alert Ears/Nose/Throat: Yes: no symptom reported Eyes: Yes: no symptom reported Pulmonary: Yes dyspnea Cardiovascular: Yes no symptom reported Gastrointestional: Yes: no symptom reported Genitourinary: Yes: no symptom reported Musculoskeletal: Yes: no symptom reported Skin: Yes no symptom reported Psychiatric/Neurological: Yes: no symptom reported Physical Exam HEENT: Neck Supple W Full Motion Chest: Symmetric LUNGS: Other (diminished) Heart: irregularly irregular (atrial flutter rate controlled) Extremities: No Calf Tenderness, Other (trace LE edema. warm to touch) Neurology: alert, oriented, follow commands Assessment Assessment 1. Acute respiratory failure secondary to a/c CHF Covid neg 2. Acute on chronic systolic CHF; ran out of lasix at home. appears euvolemic. Normal left-sided filling pressures per RHC 3. PAFIB/flutter with RVR; Rate better controlled 4. Mild troponin elevation; peak 0.067, demand mediated 5. Cardiomyopathy; LVEF 30% 6. CAD; POD#1 LHC revealed no intervenable lesions. LCx stent is patent 7. PAD; s/p recent CRYOLITE RECOVERY OPERATOR of the LSFA. Has WIRE COINER of the right SFA. No critical limb ischemia. Has failed outpatient clinic follow up 8. Severe JOE from 1.5 to 3.1 possibly from cardiorenal syndrome. Cr now back to baseline. 9. Hypokalemia; replaced 10. Severe Transaminitis possibly from congestive hepatopathy but could not rule out adverse effect from tapazole including nephritis. hepatic steatosis per sono 11. Hyperthyroidism: TSH and T4 are not on goal . was on methimazole 12. Poor treatment compliance 13. Mild Coagulopathy: INR at 1.4 Recommendations 1. May resume digoxin for rate control and resume aldactone/ACEi when clear with nephrology. Continue toprol. PO lasix. 2. Will defer to PCP in regards to hyperthyroidism coverage. 3. Continue ASA. eliquis is on hold due to unclear etiology for severe transaminitis with last dose on 08/11. Hold statin for now with elevated LFTs. Recommend CMP next week. 4. Outpatient f/u of PAD with consideration of CRYOLITE RECOVERY OPERATOR of the right SFA WIRE COINER. Discussed importance of compliance and followup. 6. Follow up in Sep 08 at 1115 AM. Recommend home health therapy as pt refuses to go to SNU 6. Discuss compliance. Will Consider outpt AICD pending treatment compliance. . Justicifation of Admission Dx: Justifications for Admission: Justification of Admission Dx: Yes GRACY BRADSHAW MD 08/15/20 2030: CARDIO Progress Notes Plan Plan Patient seen and examined. Agree with above nurse practitioner note. He is doing well and appears to be euvolemic. Case discussed with primary hospitalist. EARLINE MADISON APRN Aug 15, 2020 13:28 GRACY BRADSHAW MD Aug 15, 2020 20:30
--- NOTE | 2020-08-15 14:56 | NUR ---
discharge: Teaching verbal and written. Reviewed medication, follow-up, cardiac cath post-op, Atrial fibrillation, cardiac diet, ect. Patient verbalized understanding. All belongings with patient. [facility] set up, RN in room prior to discharge. Patient assisted off of unit via wheelchair accompanied by THEO
== END 2020-08-15 15:08 | disposition home health service (06) | DRG 280 ==
LOC: ER 19:42 → 2 SOUTH 21:50 → 2 NORTH 08-13 16:00
PROVIDERS: ADMIT Family Medicine; ATTEND Family Medicine
PROC: 4A023N8 Measurement of Cardiac Sampling and Pressure, Bilateral, Percutaneous Approach (ICD-10-PCS; principal; 2020-08-14)
PROC: B2111ZZ Fluoroscopy of Multiple Coronary Arteries using Low Osmolar Contrast (ICD-10-PCS; 2020-08-14)
DX: I13.0 Hypertensive heart and chronic kidney disease with heart failure and stage 1 through stage 4 chronic kidney disease, or unspecified chronic kidney disease (principal); I21.A1 Myocardial infarction type 2; I50.43 Acute on chronic combined systolic (congestive) and diastolic (congestive) heart failure; J96.01 Acute respiratory failure with hypoxia; N17.0 Acute kidney failure with tubular necrosis; K72.00 Acute and subacute hepatic failure without coma; R57.8 Other shock; I48.92 Unspecified atrial flutter; D68.9 Coagulation defect, unspecified; R18.8 Other ascites; I42.0 Dilated cardiomyopathy; E78.00 Pure hypercholesterolemia, unspecified; I48.0 Paroxysmal atrial fibrillation; F17.210 Nicotine dependence, cigarettes, uncomplicated; E87.6 Hypokalemia; E78.5 Hyperlipidemia, unspecified; K76.0 Fatty (change of) liver, not elsewhere classified; K76.1 Chronic passive congestion of liver; N18.30 Chronic kidney disease, stage 3 unspecified; F41.9 Anxiety disorder, unspecified; K44.9 Diaphragmatic hernia without obstruction or gangrene; L30.8 Other specified dermatitis; M19.90 Unspecified osteoarthritis, unspecified site; E05.90 Thyrotoxicosis, unspecified without thyrotoxic crisis or storm; I73.9 Peripheral vascular disease, unspecified; I25.10 Atherosclerotic heart disease of native coronary artery without angina pectoris; F43.10 Post-traumatic stress disorder, unspecified; I27.20 Pulmonary hypertension, unspecified; I27.81 Cor pulmonale (chronic); J44.9 Chronic obstructive pulmonary disease, unspecified; R05 Cough; Z20.828 Contact with and (suspected) exposure to other viral communicable diseases; Z90.49 Acquired absence of other specified parts of digestive tract; Z91.19 Patient's noncompliance with other medical treatment and regimen; Z82.49 Family history of ischemic heart disease and other diseases of the circulatory system; Z95.5 Presence of coronary angioplasty implant and graft
CPT/HCPCS: 36415; 71045; 74022; 76705; 76770; 76937; 80048; 80053; 80061; 80076; 80162; 81001; 83735; 83880; 84100; 84132; 84439; 84443; 84484; 85007; 85025; 85610; 93005; 93306; 93460; 99152; 99153; C1769; C1773; C1892; J1160; J1644; J1940; J2250; J2260; J3010; J3480; J3490; J7030; J7040; Q9956; Q9967; U0003; G0378

== ENCOUNTER 2020-08-28 12:57 | Inpatient (IN) | payer MEDICARE ==
[~2020-08-28] VITALS: Ht 172.7 cm; Wt 70.1 kg
[~2020-08-28 12:57] MED LIST changes: +FURO20TA3 PO; +LISI-517 PO; +METO-247 PO; -MULT1TAB90 PO; +MULT1TAB92 PO; -POLY17PO28 PO; +POLY17PO52 PO; +SPIR25TA5 PO
[2020-08-28 13:45] LABS: BASO % 2 % (0-3); EOS % 2 % (0-3); HEMATOCRIT 37.8 % (39.0-53.0); HEMOGLOBIN 12.5 g/dL (13.0-17.5); LYMPH % 23 % (24-48); MEAN CORPUSCULAR HEMOGLOBIN 29 pg (25-35); MEAN CORPUSCULAR HGB CONC 33 g/dL (31-37); MEAN CORPUSCULAR VOLUME 89 fL (79-100); MONO # 0.9 x10^3/uL (0.0-1.1); MONO % 11 % (0-9); NEUT # 5.4 x10^3/uL (1.8-7.7); NEUT % 62 % (31-73); PLATELET COUNT 122 x10^3/uL (140-400); RED BLOOD COUNT 4.27 x10^6/uL (4.30-5.70); WHITE BLOOD COUNT 8.7 x10^3/uL (4.0-11.0)
[2020-08-28] MEDS ORDERED: DIGOXIN IV 500 MCG/2 ML AMPUL. IV ONE (13:45)
[2020-08-28 13:46] LABS: BASO # 0.2 x10^3/uL (0.0-0.2); EOS # 0.2 x10^3/uL (0.0-0.7)
--- NOTE | 2020-08-28 13:55 | RAD ---
EXAM: Chest, single view. HISTORY: Shortness of air. COMPARISON: 08/12/2020 FINDINGS: A frontal view of the chest is obtained. There is stable diffuse interstitial infiltrate wi th small pleural effusions. There is a stable cardiac silhouette. There is no pneumothorax. IMPRESSION: Diffuse interstitial infiltrate and small pleural effusions. Electronically signed by: Gretchen Smith MD (08/28/2020 1:53 PM) [id number]
[2020-08-28 14:41] LABS: CALCIUM 8.4 mg/dL (8.5-10.1); CREATININE 1.3 mg/dL (0.7-1.3); POTASSIUM 3.5 mmol/L (3.5-5.1)
[2020-08-28 14:47] LABS: ALBUMIN 2.7 g/dL (3.4-5.0); ALBUMIN/GLOBULIN RATIO 0.7 (1.0-1.7); TOTAL BILIRUBIN 1.5 mg/dL (0.2-1.0); TOTAL PROTEIN 6.6 g/dL (6.4-8.2)
[2020-08-28] MEDS ORDERED: IV NORMAL SALINE 500ML BAG 500 ML IV ONE (15:45)
--- NOTE | 2020-08-28 15:58 | PHYS DOC ---
Past Medical History Past Medical History: Asthma, CAD, CHF, COPD, High Cholesterol, Hypertension Additional Past Medical Histor: PTSD Past Surgical History: Other Additional Past Surgical Histo: colon surgery x 3 weeks ago, cardiac stent Smoking Status: Current Every Day Smoker Additional Information: 0.5/PPD Alcohol Use: None Drug Use: None General Adult EDM: Chief Complaint: SHORTNESS OF BREATH HPI: HPI: Patient is a 75 year old male who was brought here by EMS due to trouble breathing for the last 4 days. Patient has a history of COPD, CHF, atrial fibrillation. Patient was admitted here on August 09 for atrial fibrillation and CHF. Patient had echocardiogram done and it showed EF of 30%.. Patient had cardiac catheterization done on August 15, 2020 and there was no intervention done. Patient had not taken any of his medications since he was discharged from the hospital because he could not get them. Patient was tested negative for COVID-19 infection while he was in the hospital. Patient said he had not been eating or drinking much Review of Systems: Review of Systems: Constitutional: Denies fever or chills. [] Eyes: Denies change in visual acuity. [] HENT: Denies nasal congestion or sore throat. [] Respiratory: Positive for cough or shortness of breath. [] Cardiovascular: Denies chest pain , positive for edema. [] GI: Denies abdominal pain, nausea, vomiting, bloody stools or diarrhea. [] : Denies dysuria. [] Musculoskeletal: Denies back pain or joint pain. [] Integument: Denies rash. [] Neurologic: Denies headache, focal weakness or sensory changes. [] Endocrine: Denies polyuria or polydipsia. [] Lymphatic: Denies swollen glands. [] Psychiatric: Denies depression or anxiety. [] Heart Score: Risk Factors: Risk Factors: DM, Current or recent (<one month) smoker, HTN, HLP, family history of CAD, obesity. Risk Scores: Score 0 - 3: 2.5% MACE over next 6 weeks - Discharge Home Score 4 - 6: 20.3% MACE over next 6 weeks - Admit for Clinical Observation Score 7 - 10: 72.7% MACE over next 6 weeks - Early Invasive Strategies Current Medications: Current Medications Medications (Trade) Dose Ordered Sig/Marcio Start Time Stop Time Status Last Admin Dose Admin Digoxin (Lanoxin) 500 mcg 1X ONCE 08/28/20 13:45 08/28/20 13:46 DC 08/28/20 13:45 500 MCG Diltiazem HCl (Cardizem Iv Push) 20 mg 1X ONCE 08/28/20 13:45 08/28/20 13:46 DC 08/28/20 14:18 20 MG Diltiazem HCl 125 mg/Sodium Chloride 125 ml @ 5 mls/hr 1X ONCE 08/28/20 15:45 08/29/20 16:44 Sodium Chloride 500 ml @ 500 mls/hr 1X ONCE 08/28/20 15:45 08/28/20 16:44 08/28/20 15:48 500 MLS/HR Allergies: Allergies: Allergies Coded Allergies Type Severity Reaction Last Updated Verified No Known Drug Allergies 05/11/20 No Physical Exam: PE: Constitutional: Well developed, well nourished, no acute distress, non-toxic appearance. [] HENT: Normocephalic, atraumatic, bilateral external ears normal, oropharynx moist, no oral exudates, nose normal. [] Eyes: PERRLA, EOMI, conjunctiva normal, no discharge. [] Neck: Normal range of motion, no tenderness, supple, no stridor. [] Cardiovascular: tachycardia, no murmur , pedal edema. Lungs & Thorax: Decrease air movement in all lung lorenzo. Abdomen: Bowel sounds normal, soft, no tenderness, no masses, no pulsatile masses. [] Skin: Warm, dry, no erythema, no rash. [] Back: No tenderness, no CVA tenderness. [] Extremities: No tenderness, no cyanosis, no clubbing, ROM intact, 2 plus edema. [] Neurologic: Alert and oriented X 3, normal motor function, normal sensory function, no focal deficits noted. [] Psychologic: Affect normal, judgement normal, mood normal. [] Current Patient Data: Labs: Laboratory Tests Test 08/28/20 13:30 08/28/20 14:22 White Blood Count 8.7 x10^3/uL (4.0-11.0) Red Blood Count 4.27 x10^6/uL (4.30-5.70) L Hemoglobin 12.5 g/dL (13.0-17.5) L Hematocrit 37.8 % (39.0-53.0) L Mean Corpuscular Volume 89 fL (79-100) Mean Corpuscular Hemoglobin 29 pg (25-35) Mean Corpuscular Hemoglobin Concent 33 g/dL (31-37) Red Cell Distribution Width 19.0 % (11.5-14.5) H Platelet Count 122 x10^3/uL (140-400) L Neutrophils (%) (Auto) 62 % (31-73) Lymphocytes (%) (Auto) 23 % (24-48) L Monocytes (%) (Auto) 11 % (0-9) H Eosinophils (%) (Auto) 2 % (0-3) Basophils (%) (Auto) 2 % (0-3) Neutrophils # (Auto) 5.4 x10^3/uL (1.8-7.7) Lymphocytes # (Auto) 2.0 x10^3/uL (1.0-4.8) Monocytes # (Auto) 0.9 x10^3/uL (0.0-1.1) Eosinophils # (Auto) 0.2 x10^3/uL (0.0-0.7) Basophils # (Auto) 0.2 x10^3/uL (0.0-0.2) Sodium Level 140 mmol/L (136-145) Potassium Level 3.5 mmol/L (3.5-5.1) Chloride Level 105 mmol/L (98-107) Carbon Dioxide Level 26 mmol/L (21-32) Anion Gap 9 (6-14) Blood Urea Nitrogen 12 mg/dL (8-26) Creatinine 1.3 mg/dL (0.7-1.3) Estimated GFR (Cockcroft-Gault) 54.0 BUN/Creatinine Ratio 9 (6-20) Glucose Level 105 mg/dL (70-99) H Calcium Level 8.4 mg/dL (8.5-10.1) L Magnesium Level 2.0 mg/dL (1.8-2.4) Total Bilirubin 1.5 mg/dL (0.2-1.0) H Aspartate Amino Transferase (AST) 20 U/L (15-37) Alanine Aminotransferase (ALT) 42 U/L (16-63) Alkaline Phosphatase 197 U/L (46-116) H Troponin I Quantitative 0.116 ng/mL (0.000-0.055) RI-Art-J-Type Natriuretic Peptide 57842 pg/mL (0-124) H Total Protein 6.6 g/dL (6.4-8.2) Albumin 2.7 g/dL (3.4-5.0) L Albumin/Globulin Ratio 0.7 (1.0-1.7) L Laboratory Tests 08/28/20 13:30 Laboratory Tests 08/28/20 14:22 Vital Signs: Vital Signs Date Time Temp Pulse Resp B/P (MAP) Pulse Ox O2 Delivery O2 Flow Rate FiO2 08/28/20 14:18 146 103/76 08/28/20 13:00 98.3 28 100 Room Air 98.3 EKG: EKG: EKG was done at 1320, heart rate 146 beats per minute atrial flutter Radiology/Procedures: Radiology/Procedures: [][facility] [address] [place] [address] IMAGING REPORT Signed PATIENT: PRESTON HAMILTON ACCOUNT: [id number] : 1945 LOCATION: ER AGE: 75 SEX: M EXAM STATUS: REG ER ORD. PHYSICIAN: KATIE MENDOZA DO REASON: soa PROCEDURE: CHEST AP ONLY EXAM: Chest, single view. HISTORY: Shortness of air. COMPARISON: 08/12/2020 FINDINGS: A frontal view of the chest is obtained. There is stable diffuse interstitial infiltrate with small pleural effusions. There is a stable cardiac silhouette. There is no pneumothorax. IMPRESSION: Diffuse interstitial infiltrate and small pleural effusions. Electronically signed by: Gretchen Bonilla MD (08/28/2020 1:53 PM) [id number] DICTATED and SIGNED BY: GRETCHEN BONILLA MD DATE: 08/28/20 [id number] 0 Course & Med Decision Making: Course & Med Decision Making Pertinent Labs and Imaging studies reviewed. (See chart for details) Patient was given 20 mg of Cardizem IV bolus and 500 fox per digoxin IV. After 1 hour he was still in atrial flutter and tachycardic. Patient was given 5 mg of Lopressor IV and his heart rate slowed down to 69 beats per minutes. Cardizem drip was not started. REPEAT EKG SHOWN HEART RATE OF 70 BPM, ATRIAL FLUTTER. Patient is a 75-year-old male who presented to ER due to trouble breathing, he was found to be in atrial flutter with RVR, patient did not respond to Cardizem or digoxin. He was responsive to IV Lopressor. His BNP is elevated. Patient recent echo show EF of 30%, patient be admitted to hospital for CHF exacerbation, COPD and atrial flutter. Dragon Disclaimer: Dragon Disclaimer: This electronic medical record was generated, in whole or in part, using a voice recognition dictation system. Departure Departure Impression: Primary Impression: CHF (congestive heart failure) Additional Impressions: COPD (chronic obstructive pulmonary disease) Atrial flutter Person under investigation for COVID-19 Disposition: 09 ADMITTED INPT THIS HOSP Admitting Physician: YUNIOR (DR. BURGOS) Condition: STABLE Referrals: UNKNOWN PCP NAME (PCP) KATIE MENDOZA DO Aug 28, 2020 15:58
[2020-08-28] MEDS ORDERED: METOPROLOL IV PUSH 5 MG/5 ML VIAL. IVP ONE ×2 (16:00→19:15)
[2020-08-28] MEDS ORDERED: ZOLPIDEM 5 MG TABLET. PO PRN (16:30)
[2020-08-28] MEDS ORDERED: MORPHINE SULFATE 2 MG/ML VIAL. IV PRN (16:30)
[2020-08-28] MEDS ORDERED: MAG HYDROX/ALUMINUM HYD/SIMETH 30 ML ORAL.SUSP PO PRN (16:30)
[2020-08-28] MEDS ORDERED: ONDANSETRON PF 4 MG/2 ML VIAL. IVP PRN (16:30)
[2020-08-28] MEDS ORDERED: ACETAMINOPHEN 325 MG TABLET. PO PRN (16:30)
[2020-08-28] MEDS ORDERED: BISACODYL 10 MG SUPP.RECT. PR PRN (16:30)
[2020-08-28] MEDS ORDERED: CALCIUM CARBONATE 500 MG TAB.CHEW PO PRN (16:30)
[2020-08-28] MEDS ORDERED: MAGNESIUM HYDROXIDE 2,400 MG/30 ML ORAL.SUSP. PO PRN (16:30)
[2020-08-28] MEDS ORDERED: POLYETHYLENE GLYCOL 3350 17 GM PACKET. PO PRN (16:45)
[2020-08-28] MEDS ORDERED: BISACODYL 5 MG TABLET.DR. PO PRN (16:45)
[2020-08-28] MEDS ORDERED: FUROSEMIDE 20 MG TABLET PO PRN (16:45)
--- NOTE | 2020-08-28 17:11 | PDOC1 ---
History and Physical Date of Admission Date of Admission DATE: 08/28/20 TIME: 16:54 Identification/Chief Complaint Chief Complaint Shortness of breath Source Source: Chart review, Patient History of Present Illness History of Present Illness Patient 76-year-old male past medical history Maryana wong, who presents to the ED with complaints of shortness of breath for the past 3 days. He was recently admitted on 08/10/2024 ARodney wong with RVR and CHF exacerbations. Echocardiogram obtained at that time showed EF of 30%. Patient was taken to [facility] which showed nonobstructive coronary artery disease with patent left circumflex stent. Since that discharge he has not taken his medications because he states he was not able to get them. Patient was at home alone and gets around with the aid of electric wheelchair. States from his previous admission he was set up with home health, but they did not come to his home to assist him in obtaining his home medications. In the ER he received Cardizem bolus and digoxin without much improvement in his heart rate. Will admit patient for further medical management with cardiology consult. Past Medical History Cardiovascular: CAD, HTN, Hyperlipidemia Pulmonary: COPD CENTRAL NERVOUS SYSTEM: Other GI: Other Heme/Onc: No pertinent hx Hepatobiliary: No pertinent hx Psych: Anxiety, Other Rheumatologic: No pertinent hx Infectious disease: No pertinent hx, Other Renal/: No pertinent hx Endocrine: No pertinent hx Past Surgical History Past Surgical History: Appendectomy, Tonsillectomy, Other Family History Family History: Heart Disease Social History Smoke: <1 pack per day ALCOHOL: none Drugs: None Current Problem List Problem List Problems Medical Problems: (1) Atrial flutter Status: Acute (2) CHF (congestive heart failure) Status: Acute (3) COPD (chronic obstructive pulmonary disease) Status: Acute Current Medications Current Medications Current Medications Diltiazem HCl (Cardizem Iv Push) 20 mg 1X ONCE IVP Last administered on 08/28/20at 14:18; Start 08/28/20 at 13:45; Stop 08/28/20 at 13:46; Status DC Digoxin (Lanoxin) 500 mcg 1X ONCE IV Last administered on 08/28/20at 13:45; Start 08/28/20 at 13:45; Stop 08/28/20 at 13:46; Status DC Sodium Chloride 500 ml @ 500 mls/hr 1X ONCE IV Last administered on 08/28/20at 15:48; Start 08/28/20 at 15:45; Stop 08/28/20 at 16:09; Status DC Diltiazem HCl 125 mg/Sodium Chloride 125 ml @ 5 mls/hr 1X ONCE IV ; Start 08/28/20 at 15:45; Stop 08/28/20 at 16:00; Status DC Metoprolol Tartrate (Lopressor Vial) 5 mg 1X ONCE IVP Last administered on 08/28/20at 16:22; Start 08/28/20 at 16:00; Stop 08/28/20 at 16:02; Status DC Ondansetron HCl (Zofran) 4 mg PRN Q6HRS PRN IVP NAUSEA/VOMITING; Start 08/28/20 at 16:30 Al Hydroxide/Mg Hydroxide (Mylanta Plus Xs) 30 ml PRN Q3HRS PRN PO HEARTBURN / GAS; Start 08/28/20 at 16:30 Calcium Carbonate/ Glycine (Tums) 500 mg PRN Q3HRS PRN PO UPSET STOMACH; Start 08/28/20 at 16:30 Zolpidem Tartrate (Ambien) 5 mg PRN QHS PRN PO INSOMNIA, MAY REPEAT IN 1HR; Start 08/28/20 at 16:30 Morphine Sulfate (Morphine Sulfate) 2 mg PRN Q1HR PRN IV PAIN-SEE COMMENTS; Start 08/28/20 at 16:30 Acetaminophen (Tylenol) 650 mg PRN Q6HRS PRN PO Headaches, Temp > 101.5F; Start 08/28/20 at 16:30 Magnesium Hydroxide (Milk Of Magnesia) 2,400 mg PRN Q12HR PRN PO CONSTIPATION; Start 08/28/20 at 16:30 Bisacodyl (Dulcolax Supp) 10 mg PRN DAILY PRN TN CONSTIPATION; Start 08/28/20 at 16:30 Apixaban (Eliquis) 5 mg BID PO ; Start 08/28/20 at 21:00 Aspirin (Ecotrin) 81 mg DAILYWBKFT PO ; Start 08/29/20 at 08:00 Bisacodyl (Dulcolax Tab) 5 mg PRN DAILY PRN PO CONSTIPATION; Start 08/28/20 at 16:45 Furosemide (Lasix) 20 mg PRN DAILY PRN PO Swelling/weight gain; Start 08/28/20 at 16:45 Albuterol/ Ipratropium (Duoneb) 3 ml RTQID NEB ; Start 08/28/20 at 17:00 Lisinopril (Prinivil) 5 mg DAILY PO ; Start 08/29/20 at 09:00 Metoprolol Succinate (Toprol Xl) 50 mg DAILY PO ; Start 08/29/20 at 09:00 Oxycodone/ Acetaminophen (Percocet 5/325) 1 tab PRN Q6HRS PRN PO MODERATE TO SEVERE PAIN; Start 08/28/20 at 16:45 Polyethylene Glycol (miraLAX PACKET) 17 gm PRN DAILY PRN PO constipation; Start 08/28/20 at 16:45; Status UNV Potassium Chloride (Klor-Con) 20 meq DAILYWBKFT PO ; Start 08/29/20 at 08:00; Status UNV Active Scripts Active Furosemide 20 Mg Tablet 1 Tab PO PRN DAILY PRN 30 Days For weight gain > 1 Kg. Dry weight 75.8 KG Lisinopril 5 Mg Tablet 5 Mg PO DAILY 30 Days Metoprolol Succinate ( Xl ) (Metoprolol Succinate) 100 Mg Tab.er.24h 50 Mg PO DAILY 90 Days Eliquis (Apixaban) 5 Mg Tablet 5 Mg PO BID 30 Days Pantoprazole Sodium (Pantoprazole Sodium) 40 Mg Tablet.dr 40 Mg PO DAILYAC 30 Days Polyethylene Glycol 3350 17 Gm Powd.pack 17 Gm PO PRN DAILY PRN 28 Days Bisacodyl 5 Mg Tablet. 5 Mg PO PRN DAILY PRN 14 Days Acetaminophen 500 Mg Tablet 500 Mg PO PRN Q6HRS PRN 30 Days Aspirin Ec (Aspirin) 81 Mg Tablet.dr 81 Mg PO DAILYWBKFT 30 Days Duoneb 0.5-3(2.5) Mg/3 Ml (Albuterol/Ipratropium) 3 Ml Ampul.neb 3 Ml NEB RTQID 30 Days Vitamin C (Ascorbic Acid) 500 Mg Tablet 500 Mg PO DAILY 30 Days Thera-M Tablet (Multivits,Ca,Minerals/Iron/Fa) 1 Each Tablet 1 Tab PO DAILY 30 Days Klor-Con M20 (Potassium Chloride) 20 Meq Tab.er.prt 20 Meq PO DAILYWBKFT 30 Days Percocet 5-325 Mg Tablet (Oxycodone/Acetaminophen) 1 Each Tablet 1 Tab PO PRN Q6HRS PRN 6 Days Reported Symbicort 80-4.5 Mcg Inhaler (Budesonide/Formoterol Fumarate) 10.2 Gm Hfa.aer.ad 2 Puff IH BID Allergies Allergies: Coded Allergies: No Known Drug Allergies (Unverified , 05/11/20) ROS Review of System GENERAL: No history of weight change, weakness or fevers. SKIN: No bruising, hair changes or rashes. EYES: No blurred, double or loss of vision. NOSE AND THROAT: No history of nosebleeds, hoarseness or sore throat. HEART: Denies chest pain, denies palpitations. LUNGS: Shortness of breath. Denies cough, hemoptysis, wheezing. GASTROINTESTINAL: Denies nausea, vomiting, abdominal pain. GENITOURINARY: Denies dysuria, frequency, urgency, hematuria. NEUROLOGIC: Denies history of numbness, tingling, tremor or weakness. PSYCHIATRIC: Denies anxiety, denies depression. ENDOCRINE: No history of heat or cold intolerance, polyuria or polydipsia. EXTREMITIES: Denies muscle weakness, joint pain, pain on walking or stiffness. Physical Exam Physical Exam General: Alert, Oriented X3, Cooperative, No acute distress HEENT: PERRLA, EOMI, no palpable thyroid mass Lungs: Bibasilar crackles, Normal air movement Heart: Tachycardic, irregularly irregular rhythm Cardiovascular: S1, S2 Abdomen: Normal bowel sounds, Soft, No tenderness Extremities: 2+ bilateral lower extremity edema, chronic trophic changes to lower extremities. No clubbing, No cyanosis Skin: No rashes, No significant lesion Neuro: Normal speech, Normal tone, Sensation intact Psych/Mental Status: Mental status NL, Mood NL Vitals Vitals Vital Signs Date Time Temp Pulse Resp B/P (MAP) Pulse Ox O2 Delivery O2 Flow Rate FiO2 08/28/20 16:22 142 119/79 08/28/20 13:00 98.3 28 100 Room Air 98.3 Labs Labs Laboratory Tests Test 08/28/20 13:30 08/28/20 14:22 White Blood Count 8.7 x10^3/uL (4.0-11.0) Red Blood Count 4.27 x10^6/uL (4.30-5.70) Hemoglobin 12.5 g/dL (13.0-17.5) Hematocrit 37.8 % (39.0-53.0) Mean Corpuscular Volume 89 fL (79-100) Mean Corpuscular Hemoglobin 29 pg (25-35) Mean Corpuscular Hemoglobin Concent 33 g/dL (31-37) Red Cell Distribution Width 19.0 % (11.5-14.5) Platelet Count 122 x10^3/uL (140-400) Neutrophils (%) (Auto) 62 % (31-73) Lymphocytes (%) (Auto) 23 % (24-48) Monocytes (%) (Auto) 11 % (0-9) Eosinophils (%) (Auto) 2 % (0-3) Basophils (%) (Auto) 2 % (0-3) Neutrophils # (Auto) 5.4 x10^3/uL (1.8-7.7) Lymphocytes # (Auto) 2.0 x10^3/uL (1.0-4.8) Monocytes # (Auto) 0.9 x10^3/uL (0.0-1.1) Eosinophils # (Auto) 0.2 x10^3/uL (0.0-0.7) Basophils # (Auto) 0.2 x10^3/uL (0.0-0.2) Sodium Level 140 mmol/L (136-145) Potassium Level 3.5 mmol/L (3.5-5.1) Chloride Level 105 mmol/L (98-107) Carbon Dioxide Level 26 mmol/L (21-32) Anion Gap 9 (6-14) Blood Urea Nitrogen 12 mg/dL (8-26) Creatinine 1.3 mg/dL (0.7-1.3) Estimated GFR (Cockcroft-Gault) 54.0 BUN/Creatinine Ratio 9 (6-20) Glucose Level 105 mg/dL (70-99) Calcium Level 8.4 mg/dL (8.5-10.1) Magnesium Level 2.0 mg/dL (1.8-2.4) Total Bilirubin 1.5 mg/dL (0.2-1.0) Aspartate Amino Transf (AST/SGOT) 20 U/L (15-37) Alanine Aminotransferase (ALT/SGPT) 42 U/L (16-63) Alkaline Phosphatase 197 U/L (46-116) Troponin I Quantitative 0.116 ng/mL (0.000-0.055) ZK-Alw-N-Type Natriuretic Peptide 42033 pg/mL (0-124) Total Protein 6.6 g/dL (6.4-8.2) Albumin 2.7 g/dL (3.4-5.0) Albumin/Globulin Ratio 0.7 (1.0-1.7) Laboratory Tests Test 08/28/20 13:30 08/28/20 14:22 White Blood Count 8.7 x10^3/uL (4.0-11.0) Red Blood Count 4.27 x10^6/uL (4.30-5.70) Hemoglobin 12.5 g/dL (13.0-17.5) Hematocrit 37.8 % (39.0-53.0) Mean Corpuscular Volume 89 fL (79-100) Mean Corpuscular Hemoglobin 29 pg (25-35) Mean Corpuscular Hemoglobin Concent 33 g/dL (31-37) Red Cell Distribution Width 19.0 % (11.5-14.5) Platelet Count 122 x10^3/uL (140-400) Neutrophils (%) (Auto) 62 % (31-73) Lymphocytes (%) (Auto) 23 % (24-48) Monocytes (%) (Auto) 11 % (0-9) Eosinophils (%) (Auto) 2 % (0-3) Basophils (%) (Auto) 2 % (0-3) Neutrophils # (Auto) 5.4 x10^3/uL (1.8-7.7) Lymphocytes # (Auto) 2.0 x10^3/uL (1.0-4.8) Monocytes # (Auto) 0.9 x10^3/uL (0.0-1.1) Eosinophils # (Auto) 0.2 x10^3/uL (0.0-0.7) Basophils # (Auto) 0.2 x10^3/uL (0.0-0.2) Sodium Level 140 mmol/L (136-145) Potassium Level 3.5 mmol/L (3.5-5.1) Chloride Level 105 mmol/L (98-107) Carbon Dioxide Level 26 mmol/L (21-32) Anion Gap 9 (6-14) Blood Urea Nitrogen 12 mg/dL (8-26) Creatinine 1.3 mg/dL (0.7-1.3) Estimated GFR (Cockcroft-Gault) 54.0 BUN/Creatinine Ratio 9 (6-20) Glucose Level 105 mg/dL (70-99) Calcium Level 8.4 mg/dL (8.5-10.1) Magnesium Level 2.0 mg/dL (1.8-2.4) Total Bilirubin 1.5 mg/dL (0.2-1.0) Aspartate Amino Transf (AST/SGOT) 20 U/L (15-37) Alanine Aminotransferase (ALT/SGPT) 42 U/L (16-63) Alkaline Phosphatase 197 U/L (46-116) Troponin I Quantitative 0.116 ng/mL (0.000-0.055) GL-Jhy-O-Type Natriuretic Peptide 34096 pg/mL (0-124) Total Protein 6.6 g/dL (6.4-8.2) Albumin 2.7 g/dL (3.4-5.0) Albumin/Globulin Ratio 0.7 (1.0-1.7) Images Images EXAM: Chest, single view. HISTORY: Shortness of air. COMPARISON: 08/12/2020 FINDINGS: A frontal view of the chest is obtained. There is stable diffuse int erstitial infiltrate with small pleural effusions. There is a stable cardiac silhouette. There is no pneumothorax. IMPRESSION: Diffuse interstitial infiltrate and small pleural effusions. VTE Prophylaxis Ordered VTE Prophylaxis Devices: No VTE Pharmacological Prophylaxi: Yes Assessment/Plan Assessment/Plan A. fib with RVR Acute systolic CHF Elevated troponins Elevated BNP Severe malnutrition PUI Plan: Will admit patient with cardiology consult. Still in A. fib with RVR; continue diltiazem infusion and follow cardiology recommendations O2 and Lasix as needed TSH (08/10/2020) 0.010; he will need to follow-up with endocrinology as outpatient. Will obtain free T3, free T4, and thyroid receptor antibodies COVID-19 pending FEN - Cardiac diet PPX - Eliquis FULL CODE Dispo - inpatient for above Justifications for Admission Other Justification Afib RVR JOSE A BURGOS MD Aug 28, 2020 17:11
[2020-08-28 17:49] LABS: FREE T4 1.83 ng/dL (0.76-1.46)
[2020-08-28] MEDS ORDERED: NICOTINE 14MG PATCH. TD PRN (18:15)
[2020-08-28] MEDS ORDERED: NICOTINE 21MG PATCH. TD PRN (18:30)
[2020-08-28] MEDS ORDERED: METOPROLOL TART IMMED RELEASE 50 MG TABLET. PO ONE (19:15)
[2020-08-28] MEDS ORDERED: AMIODARONE 300 MG in IV DEXTROSE 5% 100ML 100 ML IV ONE (19:30)
[2020-08-28] MEDS ORDERED: AMIODARONE 450 MG in IV DEXTROSE 5% 250 ML IV ONE (20:30)
[2020-08-28] MEDS: APIXABAN 5 MG TABLET. PO SCH (20:33)
[2020-08-28] MEDS: oxyCODONE/APAP 5/325 1 TAB TABLET PO PRN (20:39)
[2020-08-28 21:00] VITALS: BP 83/68
[2020-08-28 22:00] VITALS: BP 100/65
[2020-08-28 23:00] VITALS: BP 109/65
[2020-08-28 23:05] VITALS: BP 109/65
[2020-08-29] VITALS (13 sets, daily range): BP systolic 82–115; BP diastolic 55–81
--- NOTE | 2020-08-29 02:19 | NUR ---
Patient arrived to unit accompanied be ED RN at approx 1950. Patient states that he was short of breath and so he had EMS bring him here. he was only wearing a robe at the time of admission and had a cellphone, cellphone customer assistance representative, and wallet. Patient states that he has not been taking his medications because he cannot drive and doesn't have mail order pharmacy set up at this time, Patient also states "You guys have a pharmacy here", explained to patient that he needs to speak with SW to help him figure out his medications- told him that we could have SW come speak with him to get mail in pharmacy possibly set up. Pt agrees to speak with SW- SW consulted. Patient also states that he has HH set up to come see him after last admission but no one ever showed up. Patient has some bruising on the left upper arm and states that is from "getting on and off the toilet, it is too low". Patient has wounds on legs and states "don't get them people to come see me because i wont pay them"-referring to wound care nurses. Patient currently smokes half a pack of cigarettes per day. Orientated patient to unit, call light in reach. will continue to monitor.
[2020-08-29] MEDS ORDERED: FUROSEMIDE 40 MG/4 ML VIAL. IVP ONE (03:30)
--- NOTE | 2020-08-29 04:32 | NUR ---
notified Dr. Hanna of D-Dimer 2.25 and low BP-unable to give lasix at this time, will continue to monitor and give lasix when BP is higher.
[2020-08-29] MEDS ORDERED: AMIODARONE 450 MG in IV DEXTROSE 5% 250 ML IV ONE (06:00)
[2020-08-29] MEDS: IPRATRPIUM/ALBUTEROL 0.5/2.5MG 3 ML NEBU. NEB SCH ×4 (06:34→18:45)
[2020-08-29] MEDS: POTASSIUM CHLORIDE 20 MEQ TABLET.ER. PO SCH ×2 (08:00→08:43)
[2020-08-29] MEDS: ANTI-COAG MONITOR BY PHARMACY. MC PRN (08:16)
[2020-08-29] MEDS: ASPIRIN ENTERIC COATED 81 MG TABLET.DR. PO SCH (08:41)
[2020-08-29] MEDS: APIXABAN 5 MG TABLET. PO SCH (08:42)
[2020-08-29] MEDS: LISINOPRIL 5 MG TABLET. PO SCH ×2 (08:42→09:00)
[2020-08-29] MEDS: METOPROLOL SUCC 24HR ER 100 MG TAB.ER.24H. PO SCH (08:43)
--- NOTE | 2020-08-29 10:21 | PDOC2 ---
EARLINE MADISON AUXILIARY PLANT OPERATOR 08/29/20 1021: CARDIAC CONSULT DATE OF CONSULT Date of Consult DATE: 08/29/20 TIME: 10:11 REASON FOR CONSULT Reason for Consult: AFIB, CHF REFERRING PHYSICIAN Referring Physician: Parth SOURCE Source: Chart review, Patient HISTORY OF PRESENT ILLNESS HISTORY OF PRESENT ILLNESS This is a 75 yo male admitted for complains of shortness of breath. Reports that he went home after being discharge and did not fill his prescriptions. He was discharge on 08/15. He was encouraged to go to SNU but refused. Presently he has venti mask on and SOA is better. Denies any chest pain or palpitations. His HR is in the 110-120s on AFIB. PAST MEDICAL HISTORY Past Medical History Cardiovascular: CAD, HTN, Hyperlipidemia, AFIB, PAD, CHF, cardiomyopathy, cor pulmonale Pulmonary: COPD CENTRAL NERVOUS SYSTEM: Other (No pertinent history) GI: Other (small hiatal hernia) Heme/Onc: No pertinent hx Hepatobiliary: No pertinent hx Psych: Anxiety, Other (PTSD) Musculoskeletal: Osteoarthritis Rheumatologic: No pertinent hx Infectious disease: No pertinent hx, Other (C-diff) ENT: No pertinent hx Renal/: No pertinent hx Endocrine: No pertinent hx Dermatology: Other (venous dermatitis) PAST SURGICAL HISTORY Past Surgical History Appendectomy, Tonsillectomy, Other (PCI/stent), [facility] FAMILY HISTORY Family History: Heart Disease SOCIAL HISTORY Smoke: <1 pack per day ALCOHOL: none Drugs: None Lives: Alone CURRENT MEDICATIONS CURRENT MEDICATIONS Current Medications Medications (Trade) Dose Ordered Sig/Marcio Route PRN Reason Start Time Stop Time Status Last Admin Dose Admin Diltiazem HCl (Cardizem Iv Push) 20 mg 1X ONCE IVP 08/28/20 13:45 08/28/20 13:46 DC 08/28/20 14:18 Digoxin (Lanoxin) 500 mcg 1X ONCE IV 08/28/20 13:45 08/28/20 13:46 DC 08/28/20 13:45 Sodium Chloride 500 ml @ 500 mls/hr 1X ONCE IV 08/28/20 15:45 08/28/20 16:09 DC 08/28/20 15:48 Metoprolol Tartrate (Lopressor Vial) 5 mg 1X ONCE IVP 08/28/20 16:00 08/28/20 16:02 DC 08/28/20 16:22 Ondansetron HCl (Zofran) 4 mg PRN Q6HRS PRN IVP NAUSEA/VOMITING 08/28/20 16:30 08/29/20 01:04 Morphine Sulfate (Morphine Sulfate) 2 mg PRN Q1HR PRN IV PAIN-SEE COMMENTS 08/28/20 16:30 08/28/20 21:46 Apixaban (Eliquis) 5 mg BID PO 08/28/20 21:00 08/29/20 08:42 Aspirin (Ecotrin) 81 mg DAILYWBKFT PO 08/29/20 08:00 08/29/20 08:41 Metoprolol Succinate (Toprol Xl) 50 mg DAILY PO 08/29/20 09:00 08/29/20 08:43 Oxycodone/ Acetaminophen (Percocet 5/325) 1 tab PRN Q6HRS PRN PO MODERATE TO SEVERE PAIN 08/28/20 16:45 08/28/20 20:39 Nicotine (Nicoderm Cq 21mg) 1 patch PRN DAILY PRN TD SMOKING CESSATION 08/28/20 18:30 08/29/20 00:18 Metoprolol Tartrate (Lopressor Vial) 5 mg 1X ONCE IVP 08/28/20 19:15 08/28/20 19:16 DC 08/28/20 19:29 Metoprolol Tartrate (Lopressor) 50 mg 1X ONCE PO 08/28/20 19:15 08/28/20 19:16 DC 08/28/20 20:38 Amiodarone HCl 300 mg/Dextrose 106 ml @ 618 mls/hr 1X ONCE IV 08/28/20 19:30 08/28/20 19:40 DC 08/28/20 20:40 Amiodarone HCl 450 mg/Dextrose 259 ml @ 0 mls/hr 1X ONCE IV 08/28/20 20:30 08/28/20 20:31 DC 08/28/20 20:40 Lorazepam (Ativan) 1 mg PRN Q6HRS PRN PO ANXIETY / AGITATION 08/28/20 22:15 08/29/20 01:41 Furosemide (Lasix) 40 mg 1X ONCE IVP 08/29/20 03:30 08/29/20 03:31 DC 08/29/20 05:58 Amiodarone HCl 450 mg/Dextrose 259 ml @ 16.7 mls/hr 1X ONCE IV 08/29/20 06:00 08/29/20 21:30 08/29/20 05:46 Info (Anti-Coagulation Monitoring By Pharmacy) 1 each PRN DAILY PRN MC SEE COMMENTS 08/29/20 08:15 08/29/20 08:16 ALLERGIES ALLERGIES: Coded Allergies: No Known Drug Allergies (Unverified , 05/11/20) ROS Review of System 14 point ROS evaluated with pertinent positives noted per HPI PHYSICAL EXAM General: Alert, Oriented X3, Cooperative, mild distress HEENT: Atraumatic, Mucous membr. moist/pink Lungs: Other (diminished basilar crackles) Heart: Other (AFIB) Abdomen: Soft, No tenderness Extremities: No cyanosis, Other (1+ bilateral LE pitting edema) Skin: No significant lesion Neuro: Normal speech, Sensation intact Psych/Mental Status: Mental status NL, Other (flat affect) MUSCULOSKELETAL: Osteoarthritic changes both hands VITALS/I&O VITALS/I&O: Vital Signs Date Time Temp Pulse Resp B/P (MAP) Pulse Ox O2 Delivery O2 Flow Rate FiO2 08/29/20 08:43 120 08/29/20 07:19 105/73 (84) 08/29/20 07:00 97.6 32 95 Venturi Mask 5.0 97.6 I & O 08/28/20 08/28/20 08/29/20 15:00 23:00 07:00 Intake Total 100 ml 365 ml Output Total 150 ml Balance 100 ml 215 ml LABS Lab: Laboratory Tests Test 08/28/20 13:30 08/28/20 14:22 08/29/20 03:20 White Blood Count 8.7 x10^3/uL (4.0-11.0) Red Blood Count 4.27 x10^6/uL (4.30-5.70) L Hemoglobin 12.5 g/dL (13.0-17.5) L Hematocrit 37.8 % (39.0-53.0) L Mean Corpuscular Volume 89 fL (79-100) Mean Corpuscular Hemoglobin 29 pg (25-35) Mean Corpuscular Hemoglobin Concent 33 g/dL (31-37) Red Cell Distribution Width 19.0 % (11.5-14.5) H Platelet Count 122 x10^3/uL (140-400) L Neutrophils (%) (Auto) 62 % (31-73) Lymphocytes (%) (Auto) 23 % (24-48) L Monocytes (%) (Auto) 11 % (0-9) H Eosinophils (%) (Auto) 2 % (0-3) Basophils (%) (Auto) 2 % (0-3) Neutrophils # (Auto) 5.4 x10^3/uL (1.8-7.7) Lymphocytes # (Auto) 2.0 x10^3/uL (1.0-4.8) Monocytes # (Auto) 0.9 x10^3/uL (0.0-1.1) Eosinophils # (Auto) 0.2 x10^3/uL (0.0-0.7) Basophils # (Auto) 0.2 x10^3/uL (0.0-0.2) Sodium Level 140 mmol/L (136-145) Potassium Level 3.5 mmol/L (3.5-5.1) Chloride Level 105 mmol/L (98-107) Carbon Dioxide Level 26 mmol/L (21-32) Anion Gap 9 (6-14) Blood Urea Nitrogen 12 mg/dL (8-26) Creatinine 1.3 mg/dL (0.7-1.3) Estimated GFR (Cockcroft-Gault) 54.0 BUN/Creatinine Ratio 9 (6-20) Glucose Level 105 mg/dL (70-99) H Calcium Level 8.4 mg/dL (8.5-10.1) L Magnesium Level 2.0 mg/dL (1.8-2.4) Total Bilirubin 1.5 mg/dL (0.2-1.0) H Aspartate Amino Transferase (AST) 20 U/L (15-37) Alanine Aminotransferase (ALT) 42 U/L (16-63) Alkaline Phosphatase 197 U/L (46-116) H Troponin I Quantitative 0.116 ng/mL (0.000-0.055) RJ-Rpt-V-Type Natriuretic Peptide 72177 pg/mL (0-124) H Total Protein 6.6 g/dL (6.4-8.2) Albumin 2.7 g/dL (3.4-5.0) L Albumin/Globulin Ratio 0.7 (1.0-1.7) L Free Thyroxine 1.83 ng/dL (0.76-1.46) H Free Triiodothyronine (T3) pg/mL 2.56 pg/mL (2.18-3.98) D-Dimer (Susan) 2.25 ug/mlFEU (0.00-0.50) H Laboratory Tests 08/28/20 13:30 Laboratory Tests 08/28/20 14:22 ASSESSMENT/PLAN ASSESSMENT/PLAN 1. Acute respiratory failure secondary to a/c CHF: mainly due to noncompliance 2. Acute on chronic systolic CHF 3. PAFIB/flutter with RVR; rate in the 110s 4. Mild troponin elevation; peak 0.1, demand mediated 5. Cardiomyopathy; LVEF 30% 6. CAD; Recent LHC revealed no intervenable lesions. LCx stent is patent 7. PAD; s/p recent MOTORSPORTS TECHNICIAN of the LSFA. Has FACILITY EXAMINER of the right SFA. No critical limb ischemia. Has failed outpatient clinic follow up 8. JOE with hyperkalemia 9. Poor treatment compliance: did not want to go to SNU on last admission and failed to fill his Rx 10. Prior severe Transaminitis and severe JOE possibly from prior tapazole w hich has been discontinued 11. Hyperthyroidism: TSH and T4 are not on goal . was on methimazole hs not seen endrocrine specialist 12. Coagulopathy Recommendations 1. Hold aldactone/ACEi. Continue BB for rate control. Repeat K later this PM. Lasix therapy. Digoxin PRN DC amiodarone drip 2. Will defer to PCP in regards to hyperthyroidism coverage. 3. Continue ASA. Eliquis for stroke prevention and may hold as INR is at 1.9 and will recheck tomorrow. 4. Outpatient f/u of PAD with consideration of MOTORSPORTS TECHNICIAN of the right SFA FACILITY EXAMINER. Discussed importance of compliance and follow up. 5. He has a follow up in Sep 08 at 1115 AM 6. Again discussed compliance. Will Consider outpt AICD pending treatment compliance. . GRACY BRADSHAW MD 08/30/20 1326: CARDIAC CONSULT ASSESSMENT/PLAN ASSESSMENT/PLAN Late entry for 08/29/2019 Pt. seen and examined. Agree with above CORK TIPPER note. Poor assisted prognosis, he probably needs placement. Supportive care. Thanks EARLINE MADISON AUXILIARY PLANT OPERATOR Aug 29, 2020 10:21 GRACY BRADSHAW MD Aug 30, 2020 13:26
[2020-08-29 11:27] LABS: CALCIUM 8.4 mg/dL (8.5-10.1); CREATININE 2.1 mg/dL (0.7-1.3)
[2020-08-29 11:33] LABS: ALBUMIN 2.7 g/dL (3.4-5.0); ALBUMIN/GLOBULIN RATIO 0.7 (1.0-1.7); PROTHROMBIN TIME PATIENT 21.4 SEC (11.7-14.0); TOTAL BILIRUBIN 3.3 mg/dL (0.2-1.0); TOTAL PROTEIN 6.8 g/dL (6.4-8.2)
[2020-08-29 11:45] LABS: POTASSIUM 5.5 mmol/L (3.5-5.1)
--- NOTE | 2020-08-29 11:49 | EKG ---
[facility] [address] [place] [address] Test Date: 2020-08-28 Test Time: 13:20:48 Pat Name: PRESTON HAMILTON Department: Room: 252 1 Gender: M Undergraduate Advisor: : [id number] Requested By: KATIE MENDOZA Order Number: [id number] Reading MD: Iván Bustillos Measurements Intervals [place] Rate: 146 P: NE: QRS: 75 QRSD: 94 T: 59 QT: 322 QTc: 503 Interpretive Statements ATRIAL FLUTTER WITH 2:[address] & T ABNORMALITY, CONSIDER INFERIOR ISCHEMIA OR LEFT VENTRICULAR STRAIN ABNORMAL ECG Electronically Signed On 08-29-2020 13:36:16 MARKETING TECHNOLOGIST by Iván Bustillos
--- NOTE | 2020-08-29 12:57 | EKG ---
[facility] [address] [place] [address] Test Date: 2020-08-28 Test Time: 16:44:23 Pat Name: PRESTON HAMILTON Department: Room: 252 Gender: M Caustics Loader: : 1945 Requested By: KATIE MENDOZA Order Number: [id number] Reading MD: Iván Bustillos Measurements Intervals [place] Rate: 70 P: 90 MA: 200 QRS: 73 QRSD: 96 T: 112 QT: 460 QTc: 500 Interpretive Statements ATRIAL FLUTTER NON SPECIFIC ST/T CHANGES PROLONGED QT Electronically Signed On 08-29-2020 13:38:08 PATIENT CARE PROVIDER by Iván Bustillos
--- NOTE | 2020-08-29 14:40 | NUR ---
SS following for discharge planning. SS reviewed pt chart and discussed with pt RN. Pt is from home and is currently on venturi mask at five liters. Pt on IV Lasix. COVID19 test pending. Per RN, non-compliant with medications at home. SS will continue to follow for discharge planning.
--- NOTE | 2020-08-29 15:43 | PDOC ---
[facility] PROGRESS NOTE Date of Service DOS: DATE: 08/29/20 TIME: 15:41 Chief Complaint Chief Complaint Assessment/Plan A. fib with RVR Acute systolic CHF Elevated troponins Elevated BNP Severe malnutrition PUI Plan: Will admit patient with cardiology consult. Still in A. fib with RVR; continue diltiazem infusion and follow cardiology recommendations O2 and Lasix as needed TSH (08/10/2020) 0.010; he will need to follow-up with endocrinology as outpatient. Will obtain free T3, free T4, and thyroid receptor antibodies COVID-19 pending FEN - Cardiac diet PPX - Eliquis FULL CODE Dispo - inpatient for above History of Present Illness History of Present Illness Patient 76-year-old male past medical history A. fib, who presents to the ED with complaints of shortness of breath for the past 3 days. He was recently admitted on 08/10/2024 A. fib with RVR and CHF exacerbations. Echocardiogram obtained at that time showed EF of 30%. Patient was taken to [facility] which showed nonobstructive coronary artery disease with patent left circumflex stent. Since that discharge he has not taken his medications because he states he was not able to get them. Patient was at home alone and gets around with the aid of electric wheelchair. States from his previous admission he was set up with home health, but they did not come to his home to assist him in obtaining his home medications. In the ER he received Cardizem bolus and digoxin without much improvement in his heart rate. Will admit patient for further medical management with cardiology consult. 08/29: Patient seen and evaluated. He is off amiodarone drip, currently in rate controlled A. fib. Continue monitor patient on POV controlled medications. He denies any chest pain or shortness of breath currently. Will follow cardiology recommendations. Discussed with RN. Vitals/I&O Vitals/I&O: Vital Signs Date Time Temp Pulse Resp B/P (MAP) Pulse Ox O2 Delivery O2 Flow Rate FiO2 08/29/20 15:21 96.3 120 28 109/77 (88) 100 Venturi Mask 6.0 96.3 I & O 08/28/20 08/28/20 08/29/20 15:00 23:00 07:00 Intake Total 100 ml 365 ml Output Total 150 ml Balance 100 ml 215 ml Physical Exam General: Alert Heart: Other (Irregularly irregular) Lungs: Clear Abdomen: Soft Extremities: No clubbing, No cyanosis Skin: No rashes, No breakdown Labs Labs: Laboratory Tests Test 08/29/20 03:20 08/29/20 10:51 D-Dimer (Susan) 2.25 ug/mlFEU (0.00-0.50) Prothrombin Time 21.4 SEC (11.7-14.0) Prothromb Time International Ratio 1.9 (0.8-1.1) Sodium Level 133 mmol/L (136-145) Potassium Level 5.5 mmol/L (3.5-5.1) Chloride Level 96 mmol/L (98-107) Carbon Dioxide Level 15 mmol/L (21-32) Anion Gap 22 (6-14) Blood Urea Nitrogen 19 mg/dL (8-26) Creatinine 2.1 mg/dL (0.7-1.3) Estimated GFR (Cockcroft-Gault) 31.0 BUN/Creatinine Ratio 9 (6-20) Glucose Level 246 mg/dL (70-99) Calcium Level 8.4 mg/dL (8.5-10.1) Magnesium Level 2.2 mg/dL (1.8-2.4) Total Bilirubin 3.3 mg/dL (0.2-1.0) Aspartate Amino Transf (AST/SGOT) 45 U/L (15-37) Alanine Aminotransferase (ALT/SGPT) 42 U/L (16-63) Alkaline Phosphatase 206 U/L (46-116) Total Protein 6.8 g/dL (6.4-8.2) Albumin 2.7 g/dL (3.4-5.0) Albumin/Globulin Ratio 0.7 (1.0-1.7) Assessment and Plan Assessmemt and Plan Problems Medical Problems: (1) Atrial flutter Status: Acute (2) CHF (congestive heart failure) Status: Acute (3) COPD (chronic obstructive pulmonary disease) Status: Acute Comment Review of Relevant I have reviewed the following items ben (where applicable) has been applied. Medications: Current Medications Medications (Trade) Dose Ordered Sig/Marcio Route PRN Reason Start Time Stop Time Status Last Admin Dose Admin Sodium Chloride 500 ml @ 500 mls/hr 1X ONCE IV 08/28/20 15:45 08/28/20 16:09 DC 08/28/20 15:48 Metoprolol Tartrate (Lopressor Vial) 5 mg 1X ONCE IVP 08/28/20 16:00 08/28/20 16:02 DC 08/28/20 16:22 Ondansetron HCl (Zofran) 4 mg PRN Q6HRS PRN IVP NAUSEA/VOMITING 08/28/20 16:30 08/29/20 01:04 Morphine Sulfate (Morphine Sulfate) 2 mg PRN Q1HR PRN IV PAIN-SEE COMMENTS 08/28/20 16:30 08/28/20 21:46 Apixaban (Eliquis) 5 mg BID PO 08/28/20 21:00 08/29/20 08:42 Aspirin (Ecotrin) 81 mg DAILYWBKFT PO 08/29/20 08:00 08/29/20 08:41 Metoprolol Succinate (Toprol Xl) 50 mg DAILY PO 08/29/20 09:00 08/29/20 08:43 Oxycodone/ Acetaminophen (Percocet 5/325) 1 tab PRN Q6HRS PRN PO MODERATE TO SEVERE PAIN 08/28/20 16:45 08/28/20 20:39 Nicotine (Nicoderm Cq 21mg) 1 patch PRN DAILY PRN TD SMOKING CESSATION 08/28/20 18:30 08/29/20 00:18 Metoprolol Tartrate (Lopressor Vial) 5 mg 1X ONCE IVP 08/28/20 19:15 08/28/20 19:16 DC 08/28/20 19:29 Metoprolol Tartrate (Lopressor) 50 mg 1X ONCE PO 08/28/20 19:15 08/28/20 19:16 DC 08/28/20 20:38 Amiodarone HCl 300 mg/Dextrose 106 ml @ 618 mls/hr 1X ONCE IV 08/28/20 19:30 08/28/20 19:40 DC 08/28/20 20:40 Amiodarone HCl 450 mg/Dextrose 259 ml @ 0 mls/hr 1X ONCE IV 08/28/20 20:30 08/28/20 20:31 DC 08/28/20 20:40 Lorazepam (Ativan) 1 mg PRN Q6HRS PRN PO ANXIETY / AGITATION 08/28/20 22:15 08/29/20 01:41 Furosemide (Lasix) 40 mg 1X ONCE IVP 08/29/20 03:30 08/29/20 03:31 DC 08/29/20 05:58 Amiodarone HCl 450 mg/Dextrose 259 ml @ 16.7 mls/hr 1X ONCE IV 08/29/20 06:00 08/29/20 10:45 DC 08/29/20 05:46 Info (Anti-Coagulation Monitoring By Pharmacy) 1 each PRN DAILY PRN MC SEE COMMENTS 08/29/20 08:15 08/29/20 08:16 Justifications for Admission Other Justification Afib RVR JOSE A BURGOS MD Aug 29, 2020 15:43
--- NOTE | 2020-08-29 15:50 | NUR ---
Wound Care Pt seen for wound care consult re: bilateral lower leg and knee wounds. Bilateral knees are scabbed over at this time, and BLE have patches of scaling skin but no open areas appreciated. Legs were lotioned and left SHANNEN. Pt would benefit from Ammonium lactate lotion to help with scaly patches, if PCP agrees. No other wounds noted on full skin inspection.
[2020-08-29] MEDS: FUROSEMIDE 40 MG/4 ML VIAL. IVP SCH (17:16)
--- NOTE | 2020-08-29 18:10 | NUR ---
Breathing treatments held pending PUI status.
[2020-08-29] MEDS: oxyCODONE/APAP 5/325 1 TAB TABLET PO PRN (19:49)
[2020-08-30 03:10] VITALS: BP 101/53
[2020-08-30 07:00] VITALS: BP 94/62
[2020-08-30] MEDS: IPRATRPIUM/ALBUTEROL 0.5/2.5MG 3 ML NEBU. NEB SCH ×4 (07:42→19:27)
[2020-08-30] MEDS ORDERED: DIGOXIN IV 500 MCG/2 ML AMPUL. IV ONE (08:00)
[2020-08-30] MEDS: POTASSIUM CHLORIDE 20 MEQ TABLET.ER. PO SCH (08:00)
[2020-08-30] MEDS: FUROSEMIDE 40 MG/4 ML VIAL. IVP SCH (08:35)
[2020-08-30] MEDS: ASPIRIN ENTERIC COATED 81 MG TABLET.DR. PO SCH (08:38)
[2020-08-30] MEDS: METOPROLOL SUCC 24HR ER 100 MG TAB.ER.24H. PO SCH (08:39)
[2020-08-30] MEDS: oxyCODONE/APAP 5/325 1 TAB TABLET PO PRN (08:39)
[2020-08-30 08:46] LABS: PROTHROMBIN TIME PATIENT 26.6 SEC (11.7-14.0)
[2020-08-30 09:03] LABS: CALCIUM 7.7 mg/dL (8.5-10.1); CREATININE 1.4 mg/dL (0.7-1.3); GFR 49.5; MAGNESIUM 1.9 mg/dL (1.8-2.4); POTASSIUM 4.1 mmol/L (3.5-5.1)
--- NOTE | 2020-08-30 10:31 | PDOC ---
[facility] PROGRESS NOTE Date of Service DOS: DATE: 08/30/20 TIME: 10:07 Chief Complaint Chief Complaint Assessment/Plan A. fib with RVR Acute systolic CHF Elevated troponins Elevated BNP Severe malnutrition PUI Plan: Will admit patient with cardiology consult. Still in A. fib with RVR; continue diltiazem infusion and follow cardiology recommendations O2 and Lasix as needed TSH (08/10/2020) 0.010; he will need to follow-up with endocrinology as outpatient. Will obtain free T3, free T4, and thyroid receptor antibodies COVID-19 pending FEN - Cardiac diet PPX - Eliquis FULL CODE Dispo - inpatient for above History of Present Illness History of Present Illness Patient 76-year-old male past medical history A. fib, who presents to the ED with complaints of shortness of breath for the past 3 days. He was recently admitted on 08/10/2024 A. fib with RVR and CHF exacerbations. Echocardiogram obtained at that time showed EF of 30%. Patient was taken to [facility] which showed nonobstructive coronary artery disease with patent left circumflex stent. Since that discharge he has not taken his medications because he states he was not able to get them. Patient was at home alone and gets around with the aid of electric wheelchair. States from his previous admission he was set up with home health, but they did not come to his home to assist him in obtaining his home medications. In the ER he received Cardizem bolus and digoxin without much improvement in his heart rate. Will admit patient for further medical management with cardiology consult. 08/29: Patient seen and evaluated. He is off amiodarone drip, currently in rate controlled A. fib. Continue monitor patient on POV controlled medications. He denies any chest pain or shortness of breath currently. Will follow cardiology recommendations. Discussed with RN. 08/30: Patient seen and evaluated. TSI <0.10, low suspicion for Graves disease, no palpable thyroid nodule. Will obtain thyroid ultrasound to evaluate. Possible subacute thyroiditis. He is agreeable to acute rehab, and will try to work with PT today. After further discussion patient with like to be DNR. Discussed with RN. Vitals/I&O Vitals/I&O: Vital Signs Date Time Temp Pulse Resp B/P (MAP) Pulse Ox O2 Delivery O2 Flow Rate FiO2 08/30/20 08:40 131 94/62 1/6/21 07:42 96 Nasal Cannula 2.0 08/30/20 07:00 97.6 18 97.6 I & O 08/29/20 08/29/20 08/30/20 14:55 22:55 06:55 Intake Total 120 ml 120 ml 480 ml Output Total 200 ml 2000 ml Balance 120 ml -80 ml -1520 ml Physical Exam General: Alert, Oriented X3, Cooperative, mild distress Heart: Other (AFIB) Lungs: Clear Abdomen: Soft, No tenderness Extremities: No cyanosis, Other (1+ bilateral LE pitting edema) Skin: No significant lesion Labs Labs: Laboratory Tests Test 08/29/20 10:51 08/29/20 18:10 08/30/20 07:11 Prothrombin Time 21.4 SEC (11.7-14.0) 26.6 SEC (11.7-14.0) Prothromb Time International Ratio 1.9 (0.8-1.1) 2.5 (0.8-1.1) Sodium Level 133 mmol/L (136-145) 140 mmol/L (136-145) Potassium Level 5.5 mmol/L (3.5-5.1) 5.0 mmol/L (3.5-5.1) 4.1 mmol/L (3.5-5.1) Chloride Level 96 mmol/L (98-107) 104 mmol/L (98-107) Carbon Dioxide Level 15 mmol/L (21-32) 28 mmol/L (21-32) Anion Gap 22 (6-14) 8 (6-14) Blood Urea Nitrogen 19 mg/dL (8-26) 27 mg/dL (8-26) Creatinine 2.1 mg/dL (0.7-1.3) 1.4 mg/dL (0.7-1.3) Estimated GFR (Cockcroft-Gault) 31.0 49.5 BUN/Creatinine Ratio 9 (6-20) Glucose Level 246 mg/dL (70-99) 96 mg/dL (70-99) Calcium Level 8.4 mg/dL (8.5-10.1) 7.7 mg/dL (8.5-10.1) Magnesium Level 2.2 mg/dL (1.8-2.4) 1.9 mg/dL (1.8-2.4) Total Bilirubin 3.3 mg/dL (0.2-1.0) Aspartate Amino Transf (AST/SGOT) 45 U/L (15-37) Alanine Aminotransferase (ALT/SGPT) 42 U/L (16-63) Alkaline Phosphatase 206 U/L (46-116) Total Protein 6.8 g/dL (6.4-8.2) Albumin 2.7 g/dL (3.4-5.0) Albumin/Globulin Ratio 0.7 (1.0-1.7) Assessment and Plan Assessmemt and Plan Problems Medical Problems: (1) Atrial flutter Status: Acute (2) CHF (congestive heart failure) Status: Acute (3) COPD (chronic obstructive pulmonary disease) Status: Acute Comment Review of Relevant I have reviewed the following items ben (where applicable) has been applied. Medications: Current Medications Medications (Trade) Dose Ordered Sig/Marcio Route PRN Reason Start Time Stop Time Status Last Admin Dose Admin Furosemide (Lasix) 40 mg DAILY IVP 08/29/20 11:00 08/30/20 08:35 Digoxin (Lanoxin) 250 mcg 1X ONCE IV 08/30/20 08:00 08/30/20 08:01 DC 08/30/20 08:40 Justifications for Admission Other Justification Afib RVR JOSE A BURGOS MD Aug 30, 2020 10:31
[2020-08-30 11:00] VITALS: BP 114/57
--- NOTE | 2020-08-30 11:29 | PDOC ---
EARLINE MADISON STRIKER OFF 08/30/20 1129: CARDIO Progress Notes Date and Time Date of Service 08/30/2020 Time of Evaluation 1110 Subjective Subjective: No Chest Pain, No shortness of breath, No Palpitations Vitals Vitals Vital Signs Date Time Temp Pulse Resp B/P (MAP) Pulse Ox O2 Delivery O2 Flow Rate FiO2 08/30/20 11:04 89 Room Air 08/30/20 08:40 131 94/62 08/30/20 08:00 2.0 08/30/20 07:00 97.6 18 97.6 Weight Weight [ ] Input and Output Intake and Output Intake and Output 08/30/20 07:00 Intake Total 720 ml Output Total 2200 ml Balance -1480 ml Intake Oral 720 ml Output Urine Total 2200 ml Laboratory Labs Laboratory Tests Test 08/29/20 18:10 08/30/20 07:11 Potassium Level 5.0 mmol/L (3.5-5.1) 4.1 mmol/L (3.5-5.1) Prothrombin Time 26.6 SEC (11.7-14.0) Prothromb Time International Ratio 2.5 (0.8-1.1) Sodium Level 140 mmol/L (136-145) Chloride Level 104 mmol/L (98-107) Carbon Dioxide Level 28 mmol/L (21-32) Anion Gap 8 (6-14) Blood Urea Nitrogen 27 mg/dL (8-26) Creatinine 1.4 mg/dL (0.7-1.3) Estimated GFR (Cockcroft-Gault) 49.5 Glucose Level 96 mg/dL (70-99) Calcium Level 7.7 mg/dL (8.5-10.1) Magnesium Level 1.9 mg/dL (1.8-2.4) Physical Exam HEENT: Neck Supple W Full Motion Chest: Symmetric LUNGS: Other (diminished bases) Heart: RRR (SR) Abdomen: Soft N/T Extremities: No Calf Tenderness, Other (1+ bilateral LE pitting edema) Neurology: alert, oriented, follow commands Assessment Assessment 1. Acute respiratory failure secondary to a/c CHF: mainly due to noncompliance 2. Acute on chronic systolic CHF: better compensated 3. PAFIB/flutter with RVR; rate better with digoxin 4. Mild troponin elevation; peak 0.1, demand mediated 5. Cardiomyopathy; LVEF 30% 6. CAD; Recent LHC revealed no intervenable lesions. LCx stent is patent 7. PAD; s/p recent FIELD CROP HARVEST CONTRACTOR of the LSFA. Has ALUMINUM SHEET CUTTER of the right SFA. No critical limb ischemia. Has failed outpatient clinic follow up 8. JOE with hyperkalemia: improved 9. Poor treatment compliance: did not want to go to SNU on last admission and failed to fill his Rx 10. Prior severe Transaminitis and severe JOE possibly from prior tapazole which has been discontinued 11. Hyperthyroidism: TSH and T4 are not on goal . was on methimazole hs not seen endrocrine specialist 12. Coagulopathy: INR 2.5 13. NSVT Recommendations 1. Continue BB for rate control add daily low dose digoxin. Lasix therapy. Replace Mg 2. Will defer to PCP in regards to hyperthyroidism coverage. 3. Continue ASA. May hold eliquis as INR remains elevated 4. Outpatient f/u of PAD with consideration of FIELD CROP HARVEST CONTRACTOR of the right SFA ALUMINUM SHEET CUTTER. Discussed importance of compliance and follow up. 5. Recommend rehab/SNU and pt has agreed to this. 6. Again discussed compliance. Will Consider outpt AICD pending treatment compliance. . Justicifation of Admission Dx: Justifications for Admission: Justification of Admission Dx: Yes GRACY BRADSHAW MD 08/31/20 1114: CARDIO Progress Notes Plan Plan Late entry for 08/30/2020 patient seen and examined. Agree with above nurse practitioner note. Could consider cardioversion if he remains tachycardic. Supportive care for now and patient has agreed to go to rehabilitation. EARLINE MADISON APRN Aug 30, 2020 11:29 GRACY BRADSHAW MD Aug 31, 2020 11:14
[2020-08-30] MEDS ORDERED: MAGNESIUM SULFATE 2GM 50 ML IV ONE (12:30)
--- NOTE | 2020-08-30 13:17 | RAD ---
EXAM: Thyroid sonogram. HISTORY: Hyperthyroidism. TECHNIQUE: Sonographic imaging of the thyroid was performed. COMPARISON: None. FINDINGS: The right thyroid lobe measures 4.9 x 1.8 x 2.4 cm. Left thyroid lobe measures 4.3 x 2.1 x 2.0 cm. The thyroid isthmus measures 4.8 mm. No solid or cystic thyroid lesion is seen. There is norm al parenchymal blood flow. IMPRESSION: Unremarkable thyroid sonogram. Electronically signed by: Gretchen Smith MD (08/30/2020 1:14 PM) [id number]
[2020-08-30 14:59] VITALS: BP 110/56
--- NOTE | 2020-08-30 15:35 | NUR ---
SS following up with discharge planning. SS reviewed pt chart and discussed with pt RN. Pt is currently on room air. COVID19 negative. Physician met with pt and pt agreeable to work with PT/OT. PT/OT ordered. SS met with pt and discussed discharge planning and [facility]. Pt agreeable to referrals to [facility] units with no preference of company. SS currently awaiting PT/OT evaluations. SS will continue to follow for discharge planning.
[2020-08-30 19:44] VITALS: BP 103/52
[2020-08-30] MEDS: METOPROLOL IV PUSH 5 MG/5 ML VIAL. IVP PRN (20:08)
[2020-08-30 22:45] VITALS: BP 101/59
[2020-08-31 02:16] VITALS: BP 119/66
[2020-08-31 07:00] VITALS: BP 124/63
[2020-08-31] MEDS: ASPIRIN ENTERIC COATED 81 MG TABLET.DR. PO SCH (08:29)
[2020-08-31] MEDS: POTASSIUM CHLORIDE 20 MEQ TABLET.ER. PO SCH (08:29)
[2020-08-31] MEDS: METOPROLOL SUCC 24HR ER 100 MG TAB.ER.24H. PO SCH (08:30)
[2020-08-31] MEDS: oxyCODONE/APAP 5/325 1 TAB TABLET PO PRN (08:33)
[2020-08-31] MEDS ORDERED: FUROSEMIDE 40 MG/4 ML VIAL. IVP SCH (09:00)
[2020-08-31] MEDS ORDERED: FUROSEMIDE 40 MG TABLET. PO SCH (09:00)
[2020-08-31] MEDS: IPRATRPIUM/ALBUTEROL 0.5/2.5MG 3 ML NEBU. NEB SCH ×4 (09:53→19:43)
--- NOTE | 2020-08-31 10:29 | PDOC ---
[facility] PROGRESS NOTE Date of Service DOS: DATE: 08/31/20 TIME: 10:16 Chief Complaint Chief Complaint Assessment/Plan A. fib with RVR Acute systolic CHF Elevated troponins Elevated BNP Severe malnutrition PUI Plan: Will admit patient with cardiology consult. Still in A. fib with RVR; continue diltiazem infusion and follow cardiology recommendations O2 and Lasix as needed TSH (08/10/2020) 0.010; he will need to follow-up with endocrinology as outpatient. Will obtain free T3, free T4, and thyroid receptor antibodies COVID-19 pending FEN - Cardiac diet PPX - Eliquis FULL CODE Dispo - inpatient for above History of Present Illness History of Present Illness Patient 76-year-old male past medical history A. fib, who presents to the ED with complaints of shortness of breath for the past 3 days. He was recently admitted on 08/10/2024 A. fib with RVR and CHF exacerbations. Echocardiogram obtained at that time showed EF of 30%. Patient was taken to [facility] which showed nonobstructive coronary artery disease with patent left circumflex stent. Since that discharge he has not taken his medications because he states he was not able to get them. Patient was at home alone and gets around with the aid of electric wheelchair. States from his previous admission he was set up with home health, but they did not come to his home to assist him in obtaining his home medications. In the ER he received Cardizem bolus and digoxin without much improvement in his heart rate. Will admit patient for further medical management with cardiology consult. 08/29: Patient seen and evaluated. He is off amiodarone drip, currently in rate controlled A. fib. Continue monitor patient on POV controlled medications. He denies any chest pain or shortness of breath currently. Will follow cardiology recommendations. Discussed with RN. 08/30: Patient seen and evaluated. TSI <0.10, low suspicion for Graves disease, no palpable thyroid nodule. Will obtain thyroid ultrasound to evaluate. Possible subacute thyroiditis. He is agreeable to acute rehab, and will try to work with PT today. After further discussion patient with like to be DNR. Discussed with RN. 08/31: Patient seen and evaluated. Denies chest pain or burning sensation or shortness of breath. Unremarkable thyroid sonogram yesterday, TSI negative. Low suspicion for Graves' or toxic adenoma. Thyroid uptake scan will help in work- up. Suspect thyroiditis or medication (amiodarone) induced. Patient concerned that he would not be accepted to acute rehab because he is a sexual offender. He is willing to go to rehab, so I recommended to patient that he continue to work with physical therapy so referral can be placed. Creatinine improving discussed with RN. Vitals/I&O Vitals/I&O: Vital Signs Date Time Temp Pulse Resp B/P (MAP) Pulse Ox O2 Delivery O2 Flow Rate FiO2 08/31/20 09:53 Room Air 08/31/20 08:30 140 08/31/20 07:00 97.7 18 124/63 (83) 92 2.0 97.7 I & O 08/30/20 08/30/20 08/31/20 15:00 23:00 07:00 Intake Total 550 ml 510 ml 340 ml Output Total 2000 ml 850 ml Balance 550 ml -1490 ml -510 ml Physical Exam General: Alert, Oriented X3, Cooperative, No acute distress Heart: Other (AFIB) Lungs: Clear Abdomen: Soft, No tenderness Extremities: No cyanosis, Other (1+ bilateral LE pitting edema) Skin: No significant lesion Assessment and Plan Assessmemt and Plan Problems Medical Problems: (1) Atrial flutter Status: Acute (2) CHF (congestive heart failure) Status: Acute (3) COPD (chronic obstructive pulmonary disease) Status: Acute Comment Review of Relevant I have reviewed the following items ben (where applicable) has been applied. Medications: Current Medications Medications (Trade) Dose Ordered Sig/Marcio Route PRN Reason Start Time Stop Time Status Last Admin Dose Admin Magnesium Sulfate 50 ml @ 25 mls/hr 1X ONCE IV 08/30/20 12:30 08/30/20 14:29 DC 08/30/20 12:42 Furosemide (Lasix) 40 mg DAILY IVP 08/31/20 09:00 08/31/20 08:30 Justifications for Admission Other Justification Afib RVR JOSE A BURGOS MD Aug 31, 2020 10:29
[2020-08-31 11:00] VITALS: BP 113/56
[2020-08-31] MEDS ORDERED: 0.9 % SODIUM CHLORIDE 10 ML DISP.SYRIN. IV PRN (12:00)
[2020-08-31] MEDS: DIGOXIN 125 MCG TABLET. PO SCH (12:29)
[2020-08-31 12:30] LABS: BASO # 0.1 x10^3/uL (0.0-0.2); BASO % 1 % (0-3); EOS # 0.4 x10^3/uL (0.0-0.7); EOS % 5 % (0-3); HEMATOCRIT 36.4 % (39.0-53.0); HEMOGLOBIN 11.8 g/dL (13.0-17.5); LYMPH # 1.1 x10^3/uL (1.0-4.8); LYMPH % 13 % (24-48); MEAN CORPUSCULAR HEMOGLOBIN 29 pg (25-35); MEAN CORPUSCULAR HGB CONC 32 g/dL (31-37); MEAN CORPUSCULAR VOLUME 88 fL (79-100); MONO # 0.7 x10^3/uL (0.0-1.1); MONO % 8 % (0-9); NEUT # 5.7 x10^3/uL (1.8-7.7); NEUT % 72 % (31-73); PLATELET COUNT 209 x10^3/uL (140-400); RED BLOOD COUNT 4.15 x10^6/uL (4.30-5.70); RED CELL DISTRIBUTION WIDTH 19.6 % (11.5-14.5); WHITE BLOOD COUNT 7.9 x10^3/uL (4.0-11.0)
[2020-08-31 12:44] LABS: CALCIUM 7.9 mg/dL (8.5-10.1); CREATININE 1.3 mg/dL (0.7-1.3); POTASSIUM 3.6 mmol/L (3.5-5.1)
[2020-08-31] MEDS: ANTI-COAG MONITOR BY PHARMACY. MC PRN ×2 (12:52→13:40)
--- NOTE | 2020-08-31 14:42 | PDOC ---
EARLINE MADISON [employer]OSP[employer] ASSEMBLER 08/31/20 1442: CARDIO Progress Notes Date and Time Date of Service 08/31/2020 Time of Evaluation 1050 Subjective Subjective: No Chest Pain, No shortness of breath, No Palpitations Vitals Vitals Vital Signs Date Time Temp Pulse Resp B/P (MAP) Pulse Ox O2 Delivery O2 Flow Rate FiO2 08/31/20 12:29 142 08/31/20 11:00 98.6 16 113/56 (75) 91 Room Air 98.6 08/31/20 08:00 2.0 Weight Weight [ ] Input and Output Intake and Output Intake and Output 08/31/20 07:00 Intake Total 1400 ml Output Total 2850 ml Balance -1450 ml Intake Oral 1400 ml Output Urine Total 2850 ml Laboratory Labs Laboratory Tests Test 08/31/20 12:15 White Blood Count 7.9 x10^3/uL (4.0-11.0) Red Blood Count 4.15 x10^6/uL (4.30-5.70) Hemoglobin 11.8 g/dL (13.0-17.5) Hematocrit 36.4 % (39.0-53.0) Mean Corpuscular Volume 88 fL (79-100) Mean Corpuscular Hemoglobin 29 pg (25-35) Mean Corpuscular Hemoglobin Concent 32 g/dL (31-37) Red Cell Distribution Width 19.6 % (11.5-14.5) Platelet Count 209 x10^3/uL (140-400) Neutrophils (%) (Auto) 72 % (31-73) Lymphocytes (%) (Auto) 13 % (24-48) Monocytes (%) (Auto) 8 % (0-9) Eosinophils (%) (Auto) 5 % (0-3) Basophils (%) (Auto) 1 % (0-3) Neutrophils # (Auto) 5.7 x10^3/uL (1.8-7.7) Lymphocytes # (Auto) 1.1 x10^3/uL (1.0-4.8) Monocytes # (Auto) 0.7 x10^3/uL (0.0-1.1) Eosinophils # (Auto) 0.4 x10^3/uL (0.0-0.7) Basophils # (Auto) 0.1 x10^3/uL (0.0-0.2) Sodium Level 140 mmol/L (136-145) Potassium Level 3.6 mmol/L (3.5-5.1) Chloride Level 103 mmol/L (98-107) Carbon Dioxide Level 32 mmol/L (21-32) Anion Gap 5 (6-14) Blood Urea Nitrogen 19 mg/dL (8-26) Creatinine 1.3 mg/dL (0.7-1.3) Estimated GFR (Cockcroft-Gault) 54.0 Glucose Level 122 mg/dL (70-99) Calcium Level 7.9 mg/dL (8.5-10.1) Physical Exam HEENT: Neck Supple W Full Motion Chest: Symmetric LUNGS: Other (diminished bases) Heart: RRR (SR) Abdomen: Soft N/T Extremities: No Calf Tenderness, Other (trace LE edema) Neurology: alert, oriented, follow commands Assessment Assessment 1. Acute respiratory failure secondary to a/c CHF: mainly due to noncompliance. much better 2. Acute on chronic systolic CHF: compensated 3. PAFIB/flutter with RVR; rate better with digoxin 4. Mild troponin elevation; peak 0.1, demand mediated 5. Cardiomyopathy; LVEF 30% 6. CAD; Recent LHC revealed no intervenable lesions. LCx stent is patent 7. PAD; s/p recent PIPE FINISHING SUPERVISOR of the LSFA. Has [employer] INSTRUCTOR of the right SFA. No critical limb ischemia. Has failed outpatient clinic follow up 8. JOE with hyperkalemia: much improved 9. Poor treatment compliance: did not want to go to SNU on last admission and failed to fill his Rx 10. Prior severe Transaminitis and severe JOE possibly from prior tapazole which has been discontinued 11. Hyperthyroidism: US unremarkable. possibly amio induced vs recent viral thyroiditis 12. Coagulopathy: INR 2.5 13. NSVT Recommendations 1. Continue BB for rate control add daily low dose digoxin. Plan for AFUA/CVN tomorrow. Discussed with pt. risks and benefits and agreeable to proceed 2. Will defer to PCP in regards to hyperthyroidism coverage. 3. Continue ASA. May hold eliquis as INR remains elevated. Recheck INR today 4. Outpatient f/u of PAD with consideration of PIPE FINISHING SUPERVISOR of the right SFA [employer]SMANSHIP INSTRUCTOR. Discussed importance of compliance and follow up. 5. Recommend rehab/SNU and pt has agreed to this. 6. Again discussed compliance. Will Consider outpt AICD pending treatment compliance. . 7. Continue lasix therapy change to PO. Justicifation of Admission Dx: Justifications for Admission: Justification of Admission Dx: Yes GRACY BRADSHAW MD 09/01/20 0654: CARDIO Progress Notes Plan Plan Late entry for 08/31/20 Pt. seen and examined. Agree with above inventory control assistant note. Needs cvn. discussed r/b/a and he wishes to proceed. [facility] [employer] Aug 31, 2020 14:42 GRACY BRADSHAW MD Sep 01, 2020 06:54
--- NOTE | 2020-08-31 14:44 | NUR ---
SS following up with discharge planning. SS reviewed pt chart and discussed with pt RN. Pt is currently on room air. COVID19 negative. Pt declined PT yesterday but participated today. PT/OT recommended senior care unit. Pt agreeable to senior care unit with no preference of company. SS phoned and faxed referral to [facility], ; fax [phone]. Pt having cardioversion tomorrow. SS will continue to follow for discharge planning.
[2020-08-31 15:00] VITALS: BP 106/64
[2020-08-31 15:02] LABS: PROTHROMBIN TIME PATIENT 17.4 SEC (11.7-14.0)
[2020-08-31 19:59] VITALS: BP 114/66
--- NOTE | 2020-08-31 20:58 | CONS ---
DATE OF CONSULTATION: 08/31/2020 ATTENDING PHYSICIAN: Dr. Hanna. REASON FOR CONSULTATION: The patient was seen at the request of Dr. Hanna for rehab evaluation. HISTORY OF PRESENT ILLNESS: This is a 75-year-old male. He was admitted on 08/28/2020 with shortness of breath in a patient with known chronic atrial fibrillation. He had shortness of breath for about 3 days prior to hospitalization. He was recently admitted on 08/10/2020 for atrial fibrillation with RVR and CHF exacerbation. Echocardiogram at that time revealed ejection fraction of 30%. The patient had nonobstructive coronary artery disease and patent left circumflex stent. The patient apparently could not take his medication as he could not afford them. He was home alone, gets around using an electric wheelchair. The patient apparently did not have any home health followup. PAST MEDICAL HISTORY: The patient also with known hypertension, hyperlipidemia, chronic obstructive pulmonary disease, anxiety, degenerative joint disease, status post appendectomy and tonsillectomy. FAMILY HISTORY: Heart disease. SOCIAL HISTORY: He smokes less than 1 pack of cigarettes per day. ALLERGIES: He is not known allergic to any medications. He does not have any stairs to manage at home. The patient admits his brother comes and helps him. Basically, he is by himself. He was told that he needs left total hip surgery secondary to osteoarthritis, but nobody wants to do it. The patient admits some lower back pain and stiffness of his knees and shoulders. PHYSICAL EXAMINATION: The patient on physical examination today revealed an elderly male. He is alert, oriented to time, place, person and circumstance and using oxygen by nasal mask. He moves all 4 extremities voluntarily. He had crepitus on range of motion of his both shoulders with significant weakness of rotator cuff muscles, especially on the left side. He had flexion contractures of both knees and left hip. He had no active or passive range of motion at left hip joint. The patient had limitation of right hip joint, rotational movements. Deep tendon reflexes are absent at both knees and ankles and he had equal perception of touch and pinprick sensation bilaterally. I have not tested his transfer or ambulation skills at this time. He had skin abrasion over both knees dorsal aspect. ASSESSMENT: Elderly male with painful degenerative joint disease of left hip with flexion contracture of left hip and both knees and degenerative joint disease of both knees and right hip and both shoulders with bilateral rotator cuff lesions, clinical evidence of peripheral neuropathy, chronic obstructive pulmonary disease, still smokes, coronary artery disease, atrial fibrillation with poor cardiac ejection fraction, history of congestive heart failure, hypertension and hyperlipidemia. RECOMMENDATIONS: I am not sure if anybody is going to operate on his left hip at present time with his flexion contracture of his knees and bilateral rotator cuff lesions. Recommendations to try diclofenac cream to his knees and hips and shoulders. Home with home health followup when medically stable. Dr. Hanna appreciate asking me to participate in the care of this interesting patient. I will be glad to follow him with you as needed for his rehabilitation. WOO DELUNA MD DR: GERA/cornell JOB#: [id number] / [id number] CONRAD
[2020-08-31] MEDS ORDERED: APIXABAN 5 MG TABLET. PO SCH (21:00)
[2020-08-31] MEDS: APIXABAN 5 MG TABLET. PO SCH (21:21)
[2020-08-31 22:12] VITALS: BP 112/62
[2020-09-01] VITALS (8 sets, daily range): BP systolic 111–138; BP diastolic 62–96
--- NOTE | 2020-09-01 01:45 | NUR ---
Patient's heart rate in the 140's. Paged Dr. Olmos's service. Call returned from Dr. Munoz, order to given PRN Metoprolol as per prior PRN order.
[2020-09-01] MEDS: METOPROLOL IV PUSH 5 MG/5 ML VIAL. IVP PRN (01:49)
[2020-09-01] MEDS ORDERED: IV RINGERS,LACTATED 1000ML 1,000 ML IV SCH (07:00)
[2020-09-01] MEDS ORDERED: HYDROmorphone 2 MG/ML VIAL IV PRN (07:00)
[2020-09-01] MEDS ORDERED: PROCHLORPERAZINE 10 MG/2 ML VIAL. IV PRN (07:00)
[2020-09-01] MEDS ORDERED: fentaNYL PF VIAL 100 MCG/2 ML VIAL IV PRN ×2 (07:00)
[2020-09-01] MEDS ORDERED: MORPHINE SULFATE 2 MG/ML VIAL. IV PRN (07:00)
[2020-09-01] MEDS ORDERED: ONDANSETRON PF 4 MG/2 ML VIAL. IV PRN (07:00)
[2020-09-01] MEDS: IPRATRPIUM/ALBUTEROL 0.5/2.5MG 3 ML NEBU. NEB SCH ×4 (07:42→20:00)
[2020-09-01 08:01] LABS: BASO # 0.2 x10^3/uL (0.0-0.2); BASO % 2 % (0-3); EOS # 0.4 x10^3/uL (0.0-0.7); EOS % 5 % (0-3); HEMATOCRIT 38.5 % (39.0-53.0); HEMOGLOBIN 12.6 g/dL (13.0-17.5); LYMPH # 1.6 x10^3/uL (1.0-4.8); LYMPH % 20 % (24-48); MEAN CORPUSCULAR HEMOGLOBIN 29 pg (25-35); MEAN CORPUSCULAR HGB CONC 33 g/dL (31-37); MEAN CORPUSCULAR VOLUME 88 fL (79-100); MONO # 0.9 x10^3/uL (0.0-1.1); MONO % 11 % (0-9); NEUT # 5.1 x10^3/uL (1.8-7.7); NEUT % 62 % (31-73); PLATELET COUNT 207 x10^3/uL (140-400); RED BLOOD COUNT 4.37 x10^6/uL (4.30-5.70); RED CELL DISTRIBUTION WIDTH 20.3 % (11.5-14.5); WHITE BLOOD COUNT 8.2 x10^3/uL (4.0-11.0)
[2020-09-01 08:14] LABS: CALCIUM 8.3 mg/dL (8.5-10.1); CREATININE 1.1 mg/dL (0.7-1.3); GFR 65.4; POTASSIUM 4.6 mmol/L (3.5-5.1)
[2020-09-01] MEDS ORDERED: BENZOCAINE ONE 20% MUCOSAL SPRAY. (08:58)
[2020-09-01] MEDS ORDERED: LIDOCAINE 2% VISCOUS 15 ML SOLUTION. ONE (08:58)
[2020-09-01] MEDS ORDERED: LIDOCAINE 2% TOPICAL JELLY 30GM TUBE. TP ONE ×2 (08:58→09:15)
[2020-09-01] MEDS ORDERED: LIDOCAINE 2% VISCOUS 15 ML SOLUTION. SWSW ONE (09:15)
[2020-09-01] MEDS ORDERED: BENZOCAINE ONE 20% MUCOSAL SPRAY. MM (09:15)
--- NOTE | 2020-09-01 10:14 | PDOC ---
[facility] [facility] PROGRESS NOTE Date of Service DOS: DATE: 09/01/20 TIME: 10:11 Chief Complaint Chief Complaint Assessment/Plan A. fib with RVR Acute systolic CHF Elevated troponins Elevated BNP Severe malnutrition PUI Plan: Will admit patient with cardiology consult. Still in A. fib with RVR; continue diltiazem infusion and follow cardiology recommendations O2 and Lasix as needed TSH (08/10/2020) 0.010; he will need to follow-up with endocrinology as outpatient. Will obtain free T3, free T4, and thyroid receptor antibodies COVID-19 pending FEN - Cardiac diet PPX - Eliquis FULL CODE Dispo - inpatient for above History of Present Illness History of Present Illness Patient 76-year-old male past medical history A. fib, who presents to the ED with complaints of shortness of breath for the past 3 days. He was recently admitted on 08/10/2024 A. fib with RVR and CHF exacerbations. Echocardiogram obtained at that time showed EF of 30%. Patient was taken to [facility] which showed nonobstructive coronary artery disease with patent left circumflex stent. Since that discharge he has not taken his medications because he states he was not able to get them. Patient was at home alone and gets around with the aid of electric wheelchair. States from his previous admission he was set up with home health, but they did not come to his home to assist him in obtaining his home medications. In the ER he received Cardizem bolus and digoxin without much improvement in his heart rate. Will admit patient for further medical management with cardiology consult. 08/29: Patient seen and evaluated. He is off amiodarone drip, currently in rate controlled A. fib. Continue monitor patient on POV controlled medications. He denies any chest pain or shortness of breath currently. Will follow cardiology recommendations. Discussed with RN. 08/30: Patient seen and evaluated. TSI <0.10, low suspicion for Graves disease, no palpable thyroid nodule. Will obtain thyroid ultrasound to evaluate. Possible subacute thyroiditis. He is agreeable to acute rehab, and will try to work with PT today. After further discussion patient with like to be DNR. Discussed with RN. 08/31: Patient seen and evaluated. Denies chest pain or burning sensation or shortness of breath. Unremarkable thyroid sonogram yesterday, TSI negative. Low suspicion for Graves' or toxic adenoma. Thyroid uptake scan will help in work- up. Suspect thyroiditis or medication (amiodarone) induced. Patient concerned that he would not be accepted to acute rehab because he is a sexual offender. He is willing to go to rehab, so I recommended to patient that he continue to work with physical therapy so referral can be placed. Creatinine improving discussed with RN. 09/01: Patient seen and evaluated. Afebrile today, breathing on 2 L nasal cannula. S/p cardioversion this morning. He is participating with physical therapy who is recommending skilled. Patient reports some significant pain in his hips due to severe degenerative joint disease. Discussed with Dr. Morocho, physical therapy is causing patient some degree of pain due to his bad joint disease. I feel patient would benefit more from home with home health than acute rehab. He denies any chest pain or nausea. Discussed with RN and social sciences instructor. Vitals/I&O Vitals/I&O: Vital Signs Date Time Temp Pulse Resp B/P (MAP) Pulse Ox O2 Delivery O2 Flow Rate FiO2 09/01/20 08:00 Venturi Mask 6.0 09/01/20 07:43 98 09/01/20 07:00 99.0 86 18 130/67 (88) 99.0 I & O 08/31/20 08/31/20 09/01/20 15:00 23:00 07:00 Intake Total 180 ml 300 ml 0 ml Output Total 1000 ml 1350 ml Balance -820 ml 300 ml -1350 ml Physical Exam General: Alert, Oriented X3, Cooperative, No acute distress Heart: Other (AFIB) Lungs: Clear Abdomen: Soft, No tenderness Extremities: No cyanosis, Other (1+ bilateral LE pitting edema) Skin: No significant lesion Labs Labs: Laboratory Tests Test 08/31/20 12:15 09/01/20 07:22 White Blood Count 7.9 x10^3/uL (4.0-11.0) 8.2 x10^3/uL (4.0-11.0) Red Blood Count 4.15 x10^6/uL (4.30-5.70) 4.37 x10^6/uL (4.30-5.70) Hemoglobin 11.8 g/dL (13.0-17.5) 12.6 g/dL (13.0-17.5) Hematocrit 36.4 % (39.0-53.0) 38.5 % (39.0-53.0) Mean Corpuscular Volume 88 fL (79-100) 88 fL (79-100) Mean Corpuscular Hemoglobin 29 pg (25-35) 29 pg (25-35) Mean Corpuscular Hemoglobin Concent 32 g/dL (31-37) 33 g/dL (31-37) Red Cell Distribution Width 19.6 % (11.5-14.5) 20.3 % (11.5-14.5) Platelet Count 209 x10^3/uL (140-400) 207 x10^3/uL (140-400) Neutrophils (%) (Auto) 72 % (31-73) 62 % (31-73) Lymphocytes (%) (Auto) 13 % (24-48) 20 % (24-48) Monocytes (%) (Auto) 8 % (0-9) 11 % (0-9) Eosinophils (%) (Auto) 5 % (0-3) 5 % (0-3) Basophils (%) (Auto) 1 % (0-3) 2 % (0-3) Neutrophils # (Auto) 5.7 x10^3/uL (1.8-7.7) 5.1 x10^3/uL (1.8-7.7) Lymphocytes # (Auto) 1.1 x10^3/uL (1.0-4.8) 1.6 x10^3/uL (1.0-4.8) Monocytes # (Auto) 0.7 x10^3/uL (0.0-1.1) 0.9 x10^3/uL (0.0-1.1) Eosinophils # (Auto) 0.4 x10^3/uL (0.0-0.7) 0.4 x10^3/uL (0.0-0.7) Basophils # (Auto) 0.1 x10^3/uL (0.0-0.2) 0.2 x10^3/uL (0.0-0.2) Prothrombin Time 17.4 SEC (11.7-14.0) Prothromb Time International Ratio 1.5 (0.8-1.1) Sodium Level 140 mmol/L (136-145) 141 mmol/L (136-145) Potassium Level 3.6 mmol/L (3.5-5.1) 4.6 mmol/L (3.5-5.1) Chloride Level 103 mmol/L (98-107) 104 mmol/L (98-107) Carbon Dioxide Level 32 mmol/L (21-32) 32 mmol/L (21-32) Anion Gap 5 (6-14) 5 (6-14) Blood Urea Nitrogen 19 mg/dL (8-26) 16 mg/dL (8-26) Creatinine 1.3 mg/dL (0.7-1.3) 1.1 mg/dL (0.7-1.3) Estimated GFR (Cockcroft-Gault) 54.0 65.4 Glucose Level 122 mg/dL (70-99) 99 mg/dL (70-99) Calcium Level 7.9 mg/dL (8.5-10.1) 8.3 mg/dL (8.5-10.1) Assessment and Plan Assessmemt and Plan Problems Medical Problems: (1) Atrial flutter Status: Acute (2) CHF (congestive heart failure) Status: Acute (3) COPD (chronic obstructive pulmonary disease) Status: Acute Comment Review of Relevant I have reviewed the following items ben (where applicable) has been applied. Medications: Current Medications Medications (Trade) Dose Ordered Sig/Marcio Route PRN Reason Start Time Stop Time Status Last Admin Dose Admin Digoxin (Lanoxin) 125 mcg DAILY PO 08/31/20 12:30 08/31/20 12:29 Apixaban (Eliquis) 5 mg BID PO 08/31/20 21:00 08/31/20 21:21 Justifications for Admission Other Justification Afib RVR JOSE A BURGOS MD Sep 01, 2020 10:14
[2020-09-01] MEDS ORDERED: PROPOFOL 10 MG/ML (20ML) VIAL. IV ONE (10:30)
[2020-09-01] MEDS ORDERED: LIDOCAINE 2% PF 5 ML VIAL. ONE (10:30)
[2020-09-01] MEDS ORDERED: AMIODARONE 150 MG in IV DEXTROSE 5% 100ML 100 ML IV ONE (11:00)
[2020-09-01 11:12] LABS: ANISOCYTOSIS MOD; PLT ESTIMATE ADEQUATE (ADEQUATE)
--- NOTE | 2020-09-01 11:19 | EKG ---
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
[2020-09-01] MEDS ORDERED: fentaNYL PF VIAL 100 MCG/2 ML VIAL ONE (11:33)
[2020-09-01] MEDS: FUROSEMIDE 40 MG TABLET. PO SCH (12:15)
[2020-09-01] MEDS: POTASSIUM CHLORIDE 20 MEQ TABLET.ER. PO SCH (12:16)
[2020-09-01] MEDS: ASPIRIN ENTERIC COATED 81 MG TABLET.DR. PO SCH (12:16)
[2020-09-01] MEDS: METOPROLOL SUCC 24HR ER 100 MG TAB.ER.24H. PO SCH (12:16)
[2020-09-01] MEDS: APIXABAN 5 MG TABLET. PO SCH ×2 (12:16→20:52)
[2020-09-01] MEDS: DIGOXIN 125 MCG TABLET. PO SCH (12:16)
--- NOTE | 2020-09-01 13:56 | NUR ---
SS following up with discharge planning. SS reviewed pt chart and discussed with pt RN. Pt is currently requiring oxygen at two liters nasal canula. COVID19 negative. Pt had Cardioversion today. Pt accepted at [facility], ; fax [phone]. Per Dr. Morocho, pt could go home with home healthcare at discharge. SS met with pt and discussed discharge planning. Pt reported that he wants to go home with home healthcare and oxygen. Referral was phoned and faxed to [facility], ; fax [phone]. Pt accepted on services with [facility]. Pt's RN notified. Pt has no home oxygen. SS will continue to follow for discharge planning.
[2020-09-02 03:33] VITALS: BP 137/76
[2020-09-02 05:28] LABS: CALCIUM 8.3 mg/dL (8.5-10.1); CREATININE 1.2 mg/dL (0.7-1.3); GFR 59.2; POTASSIUM 3.6 mmol/L (3.5-5.1)
[2020-09-02 05:30] LABS: BASO # 0.1 x10^3/uL (0.0-0.2); BASO % 1 % (0-3); EOS # 0.4 x10^3/uL (0.0-0.7); EOS % 5 % (0-3); HEMATOCRIT 35.6 % (39.0-53.0); HEMOGLOBIN 11.8 g/dL (13.0-17.5); LYMPH % 23 % (24-48); MEAN CORPUSCULAR HEMOGLOBIN 29 pg (25-35); MEAN CORPUSCULAR HGB CONC 33 g/dL (31-37); MEAN CORPUSCULAR VOLUME 87 fL (79-100); MONO # 0.9 x10^3/uL (0.0-1.1); MONO % 11 % (0-9); NEUT # 5.2 x10^3/uL (1.8-7.7); NEUT % 61 % (31-73); PLATELET COUNT 195 x10^3/uL (140-400); RED BLOOD COUNT 4.07 x10^6/uL (4.30-5.70); RED CELL DISTRIBUTION WIDTH 20.1 % (11.5-14.5); WHITE BLOOD COUNT 8.6 x10^3/uL (4.0-11.0)
[2020-09-02 07:23] VITALS: BP 127/72
[2020-09-02] MEDS: IPRATRPIUM/ALBUTEROL 0.5/2.5MG 3 ML NEBU. NEB SCH ×4 (07:26→18:41)
[2020-09-02] MEDS: ASPIRIN ENTERIC COATED 81 MG TABLET.DR. PO SCH (08:36)
[2020-09-02] MEDS: METOPROLOL SUCC 24HR ER 100 MG TAB.ER.24H. PO SCH (08:36)
[2020-09-02] MEDS: POTASSIUM CHLORIDE 20 MEQ TABLET.ER. PO SCH (08:36)
[2020-09-02] MEDS: DIGOXIN 125 MCG TABLET. PO SCH (08:38)
[2020-09-02] MEDS: APIXABAN 5 MG TABLET. PO SCH ×2 (08:38→20:51)
[2020-09-02] MEDS: FUROSEMIDE 40 MG TABLET. PO SCH (08:38)
--- NOTE | 2020-09-02 10:22 | PDOC ---
PROGRESS NOTES Date of Service DATE: 09/02/20 TIME: 10:22 Subjective Subjective He admits continued left hip pain. 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 I am no sure he is a good candidate for left RIA at this time. Assessment Assessment Problems Medical Problems: (1) Atrial flutter Status: Acute (2) CHF (congestive heart failure) Status: Acute (3) COPD (chronic obstructive pulmonary disease) Status: Acute Plan Plan of Care To ask to see him for consideration of left RIA. Comment Review of Relevant I have reviewed the following items ben (where applicable) has been applied. Labs Laboratory Tests Test 08/31/20 12:15 09/01/20 07:22 09/02/20 05:00 White Blood Count 7.9 x10^3/uL (4.0-11.0) 8.2 x10^3/uL (4.0-11.0) 8.6 x10^3/uL (4.0-11.0) Red Blood Count 4.15 x10^6/uL (4.30-5.70) 4.37 x10^6/uL (4.30-5.70) 4.07 x10^6/uL (4.30-5.70) Hemoglobin 11.8 g/dL (13.0-17.5) 12.6 g/dL (13.0-17.5) 11.8 g/dL (13.0-17.5) Hematocrit 36.4 % (39.0-53.0) 38.5 % (39.0-53.0) 35.6 % (39.0-53.0) Mean Corpuscular Volume 88 fL (79-100) 88 fL (79-100) 87 fL (79-100) Mean Corpuscular Hemoglobin 29 pg (25-35) 29 pg (25-35) 29 pg (25-35) Mean Corpuscular Hemoglobin Concent 32 g/dL (31-37) 33 g/dL (31-37) 33 g/dL (31-37) Red Cell Distribution Width 19.6 % (11.5-14.5) 20.3 % (11.5-14.5) 20.1 % (11.5-14.5) Platelet Count 209 x10^3/uL (140-400) 207 x10^3/uL (140-400) 195 x10^3/uL (140-400) Neutrophils (%) (Auto) 72 % (31-73) 62 % (31-73) 61 % (31-73) Lymphocytes (%) (Auto) 13 % (24-48) 20 % (24-48) 23 % (24-48) Monocytes (%) (Auto) 8 % (0-9) 11 % (0-9) 11 % (0-9) Eosinophils (%) (Auto) 5 % (0-3) 5 % (0-3) 5 % (0-3) Basophils (%) (Auto) 1 % (0-3) 2 % (0-3) 1 % (0-3) Neutrophils # (Auto) 5.7 x10^3/uL (1.8-7.7) 5.1 x10^3/uL (1.8-7.7) 5.2 x10^3/uL (1.8-7.7) Lymphocytes # (Auto) 1.1 x10^3/uL (1.0-4.8) 1.6 x10^3/uL (1.0-4.8) 2.0 x10^3/uL (1.0-4.8) Monocytes # (Auto) 0.7 x10^3/uL (0.0-1.1) 0.9 x10^3/uL (0.0-1.1) 0.9 x10^3/uL (0.0-1.1) Eosinophils # (Auto) 0.4 x10^3/uL (0.0-0.7) 0.4 x10^3/uL (0.0-0.7) 0.4 x10^3/uL (0.0-0.7) Basophils # (Auto) 0.1 x10^3/uL (0.0-0.2) 0.2 x10^3/uL (0.0-0.2) 0.1 x10^3/uL (0.0-0.2) Prothrombin Time 17.4 SEC (11.7-14.0) Prothromb Time International Ratio 1.5 (0.8-1.1) Sodium Level 140 mmol/L (136-145) 141 mmol/L (136-145) 139 mmol/L (136-145) Potassium Level 3.6 mmol/L (3.5-5.1) 4.6 mmol/L (3.5-5.1) 3.6 mmol/L (3.5-5.1) Chloride Level 103 mmol/L (98-107) 104 mmol/L (98-107) 103 mmol/L (98-107) Carbon Dioxide Level 32 mmol/L (21-32) 32 mmol/L (21-32) 32 mmol/L (21-32) Anion Gap 5 (6-14) 5 (6-14) 4 (6-14) Blood Urea Nitrogen 19 mg/dL (8-26) 16 mg/dL (8-26) 14 mg/dL (8-26) Creatinine 1.3 mg/dL (0.7-1.3) 1.1 mg/dL (0.7-1.3) 1.2 mg/dL (0.7-1.3) Estimated GFR (Cockcroft-Gault) 54.0 65.4 59.2 Glucose Level 122 mg/dL (70-99) 99 mg/dL (70-99) 101 mg/dL (70-99) Calcium Level 7.9 mg/dL (8.5-10.1) 8.3 mg/dL (8.5-10.1) 8.3 mg/dL (8.5-10.1) Platelet Estimate Adequate (ADEQUATE) Large Platelets Few Anisocytosis Mod Laboratory Tests Test 09/02/20 05:00 White Blood Count 8.6 x10^3/uL (4.0-11.0) Red Blood Count 4.07 x10^6/uL (4.30-5.70) Hemoglobin 11.8 g/dL (13.0-17.5) Hematocrit 35.6 % (39.0-53.0) Mean Corpuscular Volume 87 fL (79-100) Mean Corpuscular Hemoglobin 29 pg (25-35) Mean Corpuscular Hemoglobin Concent 33 g/dL (31-37) Red Cell Distribution Width 20.1 % (11.5-14.5) Platelet Count 195 x10^3/uL (140-400) Neutrophils (%) (Auto) 61 % (31-73) Lymphocytes (%) (Auto) 23 % (24-48) Monocytes (%) (Auto) 11 % (0-9) Eosinophils (%) (Auto) 5 % (0-3) Basophils (%) (Auto) 1 % (0-3) Neutrophils # (Auto) 5.2 x10^3/uL (1.8-7.7) Lymphocytes # (Auto) 2.0 x10^3/uL (1.0-4.8) Monocytes # (Auto) 0.9 x10^3/uL (0.0-1.1) Eosinophils # (Auto) 0.4 x10^3/uL (0.0-0.7) Basophils # (Auto) 0.1 x10^3/uL (0.0-0.2) Sodium Level 139 mmol/L (136-145) Potassium Level 3.6 mmol/L (3.5-5.1) Chloride Level 103 mmol/L (98-107) Carbon Dioxide Level 32 mmol/L (21-32) Anion Gap 4 (6-14) Blood Urea Nitrogen 14 mg/dL (8-26) Creatinine 1.2 mg/dL (0.7-1.3) Estimated GFR (Cockcroft-Gault) 59.2 Glucose Level 101 mg/dL (70-99) Calcium Level 8.3 mg/dL (8.5-10.1) Medications Current Medications Diltiazem HCl (Cardizem Iv Push) 20 mg 1X ONCE IVP Last administered on at 14:18; Start 08/28/20 at 13:45; Stop 08/28/20 at 13:46; Status DC Digoxin (Lanoxin) 500 mcg 1X ONCE IV Last administered on 08/28/20at 13:45; Start 08/28/20 at 13:45; Stop 08/28/20 at 13:46; Status DC Sodium Chloride 500 ml @ 500 mls/hr 1X ONCE IV Last administered on 08/28/20at 15:48; Start 08/28/20 at 15:45; Stop 08/28/20 at 16:09; Status DC Diltiazem HCl 125 mg/Sodium Chloride 125 ml @ 5 mls/hr 1X ONCE IV ; Start 08/28/20 at 15:45; Stop 08/28/20 at 16:00; Status DC Metoprolol Tartrate (Lopressor Vial) 5 mg 1X ONCE IVP Last administered on 08/28/20at 16:22; Start 08/28/20 at 16:00; Stop 08/28/20 at 16:02; Status DC Ondansetron HCl (Zofran) 4 mg PRN Q6HRS PRN IVP NAUSEA/VOMITING Last administered on 08/29/20at 01:04; Start 08/28/20 at 16:30 Al Hydroxide/Mg Hydroxide (Mylanta Plus Xs) 30 ml PRN Q3HRS PRN PO HEARTBURN / GAS; Start 08/28/20 at 16:30 Calcium Carbonate/ Glycine (Tums) 500 mg PRN Q3HRS PRN PO UPSET STOMACH; Start 08/28/20 at 16:30 Zolpidem Tartrate (Ambien) 5 mg PRN QHS PRN PO INSOMNIA, MAY REPEAT IN 1HR; Start 08/28/20 at 16:30 Morphine Sulfate (Morphine Sulfate) 2 mg PRN Q1HR PRN IV PAIN-SEE COMMENTS Last administered on 08/28/20at 21:46; Start 08/28/20 at 16:30 Acetaminophen (Tylenol) 650 mg PRN Q6HRS PRN PO Headaches, Temp > 101.5F; Start 08/28/20 at 16:30 Magnesium Hydroxide (Milk Of Magnesia) 2,400 mg PRN Q12HR PRN PO CONSTIPATION 3RD CHOICE; Start 08/28/20 at 16:30 Bisacodyl (Dulcolax Supp) 10 mg PRN DAILY PRN UT CONSTIPATION; Start 08/28/20 at 16:30 Apixaban (Eliquis) 5 mg BID PO Last administered on 08/29/20at 08:42; Start 08/28/20 at 21:00; Stop 08/29/20 at 17:31; Status DC Aspirin (Ecotrin) 81 mg DAILYWBKFT PO Last administered on 09/02/20at 08:36; Start 08/29/20 at 08:00 Bisacodyl (Dulcolax Tab) 5 mg PRN DAILY PRN PO CONSTIPATION 2ND CHOICE; Start 08/28/20 at 16:45 Furosemide (Lasix) 20 mg PRN DAILY PRN PO Swelling/weight gain; Start 08/28/20 at 16:45 Albuterol/ Ipratropium (Duoneb) 3 ml RTQID NEB Last administered on 08/31/20at 09:53; Start 08/28/20 at 17:00 Lisinopril (Prinivil) 5 mg DAILY PO ; Start 08/29/20 at 09:00; Stop 08/29/20 at 17:35; Status DC Metoprolol Succinate (Toprol Xl) 50 mg DAILY PO Last administered on 09/02/20at 08:36; Start 08/29/20 at 09:00 Oxycodone/ Acetaminophen (Percocet 5/325) 1 tab PRN Q6HRS PRN PO MODERATE TO SEVERE PAIN Last administered on 08/31/20at 08:33; Start 08/28/20 at 16:45 Polyethylene Glycol (miraLAX PACKET) 17 gm PRN DAILY PRN PO constipation; Start 08/28/20 at 16:45 Potassium Chloride (Klor-Con) 20 meq DAILYWBKFT PO Last administered on 09/02/20at 08:36; Start 08/29/20 at 08:00 Nicotine (Nicoderm Cq 14mg) 1 patch PRN DAILY PRN TD SMOKING CESSATION; Start 08/28/20 at 18:15; Stop 08/28/20 at 18:20; Status DC Nicotine (Nicoderm Cq 21mg) 1 patch PRN DAILY PRN TD SMOKING CESSATION Last administered on 08/29/20at 00:18; Start 08/28/20 at 18:30 Metoprolol Tartrate (Lopressor Vial) 5 mg 1X ONCE IVP Last administered on 08/28/20at 19:29; Start 08/28/20 at 19:15; Stop 08/28/20 at 19:16; Status DC Metoprolol Tartrate (Lopressor) 50 mg 1X ONCE PO Last administered on 08/28/20at 20:38; Start 08/28/20 at 19:15; Stop 08/28/20 at 19:16; Status DC Amiodarone HCl 300 mg/Dextrose 106 ml @ 618 mls/hr 1X ONCE IV Last administered on 08/28/20at 20:40; Start 08/28/20 at 19:30; Stop 08/28/20 at 19:40; Status DC Amiodarone HCl 450 mg/Dextrose 259 ml @ 0 mls/hr 1X ONCE IV Last administered on 08/28/20at 20:40; Start 08/28/20 at 20:30; Stop 08/28/20 at 20:31; Status DC Lorazepam (Ativan) 1 mg PRN Q6HRS PRN PO ANXIETY / AGITATION Last administered on 08/29/20at 01:41; Start 08/28/20 at 22:15 Furosemide (Lasix) 40 mg 1X ONCE IVP Last administered on 08/29/20at 05:58; Start 08/29/20 at 03:30; Stop 08/29/20 at 03:31; Status DC Amiodarone HCl 450 mg/Dextrose 259 ml @ 16.7 mls/hr 1X ONCE IV Last administered on 08/29/20at 05:46; Start 08/29/20 at 06:00; Stop 08/29/20 at 10:45; Status DC Info (Anti-Coagulation Monitoring By Pharmacy) 1 each PRN DAILY PRN MC SEE COMMENTS Last administered on 08/31/20at 13:40; Start 08/29/20 at 08:15 Furosemide (Lasix) 40 mg DAILY IVP Last administered on 08/30/20at 08:35; Start 08/29/20 at 11:00; Stop 08/30/20 at 13:38; Status DC Digoxin (Lanoxin) 250 mcg 1X ONCE IV Last administered on 08/30/20at 08:40; St art 08/30/20 at 08:00; Stop 08/30/20 at 08:01; Status DC Metoprolol Tartrate (Lopressor Vial) 5 mg PRN Q6HRS PRN IVP TACHYCARDIA Last administered on 09/01/20at 01:49; Start 08/30/20 at 08:00 Magnesium Sulfate 50 ml @ 25 mls/hr 1X ONCE IV Last administered on 08/30/20at 12:42; Start 08/30/20 at 12:30; Stop 08/30/20 at 14:29; Status DC Furosemide (Lasix) 40 mg DAILY PO ; Start 08/31/20 at 09:00; Stop 08/30/20 at 14:10; Status DC Furosemide (Lasix) 40 mg DAILY IVP Last administered on 08/31/20at 08:30; Start 08/31/20 at 09:00; Stop 08/31/20 at 14:38; Status DC Digoxin (Lanoxin) 125 mcg DAILY PO Last administered on 09/02/20at 08:38; Start 08/31/20 at 12:30 Sodium Chloride (Normal Saline Flush) 10 ml QSHIFT PRN IV AFTER MEDS AND BLOOD DRAWS; Start 08/31/20 at 12:00 Apixaban (Eliquis) 5 mg BID PO Last administered on 09/02/20at 08:38; Start 08/31/20 at 21:00 Furosemide (Lasix) 40 mg DAILY PO Last administered on 09/02/20at 08:38; Start 09/01/20 at 09:00 Ondansetron HCl (Zofran) 4 mg PRN Q6HRS PRN IV NAUSEA/VOMITING; Start 09/01/20 at 07:00; Stop 09/02/20 at 06:59; Status DC Fentanyl Citrate (Fentanyl 2ml Vial) 25 mcg PRN Q5MIN PRN IV MILD PAIN 1-3 Last administered on 09/01/20at 11:34; Start 09/01/20 at 07:00; Stop 09/02/20 at 06:59; Status DC Fentanyl Citrate (Fentanyl 2ml Vial) 50 mcg PRN Q5MIN PRN IV MODERATE TO SEVERE PAIN; Start 09/01/20 at 07:00; Stop 09/02/20 at 06:59; Status DC Morphine Sulfate (Morphine Sulfate) 1 mg PRN Q10MIN PRN IV SEVERE PAIN 7-10; Start 09/01/20 at 07:00; Stop 09/02/20 at 06:59; Status DC Ringer's Solution 1,000 ml @ 30 mls/hr Q24H IV Last administered on 09/01/20at 10:36; Start 09/01/20 at 07:00; Stop 09/01/20 at 18:59; Status DC Hydromorphone HCl (Dilaudid) 0.5 mg PRN Q10MIN PRN IV SEV PAIN, Second choice; Start 09/01/20 at 07:00; Stop 09/02/20 at 06:59; Status DC Prochlorperazine Edisylate (Compazine) 5 mg PACU PRN PRN IV NAUSEA, MRX1; Start 09/01/20 at 07:00; Stop 09/02/20 at 06:59; Status DC Apixaban (Eliquis) 5 mg BID PO ; Start 08/31/20 at 21:00; Status UNV Lidocaine HCl (Viscous Lidocaine) 15 ml STK-MED ONCE .ROUTE ; Start 09/01/20 at 08:58; Stop 09/01/20 at 08:58; Status DC Lidocaine HCl (Xylocaine 2% Topical 30gm Tube) 30 nino STK-MED ONCE TP ; Start 09/01/20 at 08:58; Stop 09/01/20 at 08:59; Status DC Benzocaine (Hurricaine One) 1 spray STK-MED ONCE .ROUTE ; Start 09/01/20 at 08:58; Stop 09/01/20 at 08:59; Status DC Lidocaine HCl (Xylocaine 2% Topical 30gm Tube) 1 nino 1X ONCE TP Last administered on 09/01/20at 10:32; Start 09/01/20 at 09:15; Stop 09/01/20 at 09:17; Status DC Lidocaine HCl (Viscous Lidocaine) 15 ml 1X ONCE SWSW Last administered on 09/01/20at 10:32; Start 09/01/20 at 09:15; Stop 09/01/20 at 09:17; Status DC Benzocaine (Hurricaine One) 2 spray 1X ONCE MM Last administered on 09/01/20at 10:31; Start 09/01/20 at 09:15; Stop 09/01/20 at 09:17; Status DC Propofol (Diprivan) 200 mg STK-MED ONCE IV ; Start 09/01/20 at 10:30; Stop 09/01/20 at 10:30; Status DC Lidocaine HCl (Lidocaine Pf 2% Vial) 5 ml STK-MED ONCE .ROUTE ; Start 09/01/20 at 10:30; Stop 09/01/20 at 10:30; Status DC Amiodarone HCl 150 mg/Dextrose 103 ml @ 618 mls/hr 1X ONCE IV Last administered on 09/01/20at 11:01; Start 09/01/20 at 11:00; Stop 09/01/20 at 11:09; Status DC Fentanyl Citrate (Fentanyl 2ml Vial) 100 mcg STK-MED ONCE .ROUTE ; Start 09/01/20 at 11:33; Stop 09/01/20 at 11:34; Status DC Active Scripts Active Furosemide 20 Mg Tablet 1 Tab PO PRN DAILY PRN 30 Days For weight gain > 1 Kg. Dry weight 75.8 KG Lisinopril 5 Mg Tablet 5 Mg PO DAILY 30 Days Metoprolol Succinate ( Xl ) (Metoprolol Succinate) 100 Mg Tab.er.24h 50 Mg PO DAILY 90 Days Eliquis (Apixaban) 5 Mg Tablet 5 Mg PO BID 30 Days Pantoprazole Sodium (Pantoprazole Sodium) 40 Mg Tablet.dr 40 Mg PO DAILYAC 30 Days Polyethylene Glycol 3350 17 Gm Powd.pack 17 Gm PO PRN DAILY PRN 28 Days Bisacodyl 5 Mg Tablet. 5 Mg PO PRN DAILY PRN 14 Days Acetaminophen 500 Mg Tablet 500 Mg PO PRN Q6HRS PRN 30 Days Aspirin Ec (Aspirin) 81 Mg Tablet. 81 Mg PO DAILYWBKFT 30 Days Duoneb 0.5-3(2.5) Mg/3 Ml (Albuterol/Ipratropium) 3 Ml Ampul.neb 3 Ml NEB RTQID 30 Days Vitamin C (Ascorbic Acid) 500 Mg Tablet 500 Mg PO DAILY 30 Days Thera-M Tablet (Multivits,Ca,Minerals/Iron/Fa) 1 Each Tablet 1 Tab PO DAILY 30 Days Klor-Con M20 (Potassium Chloride) 20 Meq Tab.er.prt 20 Meq PO DAILYWBKFT 30 Days Percocet 5-325 Mg Tablet (Oxycodone/Acetaminophen) 1 Each Tablet 1 Tab PO PRN Q6HRS PRN 6 Days Reported Symbicort 80-4.5 Mcg Inhaler (Budesonide/Formoterol Fumarate) 10.2 Gm Hfa.aer.ad 2 Puff IH BID Vitals/I & O Vital Sign - Last 24 Hours 09/01/20 09/01/20 09/01/20 09/01/20 10:45 10:45 11:00 11:01 Temp 99.5 99.5 Pulse 88 84 83 Resp 22 24 B/P (MAP) 111/61 113/66 111/61 Pulse Ox 99 99 O2 Delivery Simple Mask Mask Simple Mask O2 Flow Rate 15 15 15 09/01/20 09/01/20 09/01/20 09/01/20 11:15 11:30 11:34 11:45 Temp 99.5 99.5 Pulse 84 84 84 Resp 24 20 20 20 B/P (MAP) 109/70 124/67 121/78 Pulse Ox 92 95 92 O2 Delivery Simple Mask Nasal Cannula Nasal Cannula Nasal Cannula O2 Flow Rate 15 2 2.0 2 09/01/20 09/01/20 09/01/20 09/01/20 12:00 12:00 12:15 12:16 Pulse 84 84 84 B/P (MAP) 135/74 (94) 113/67 (82) 121/78 Pulse Ox 98 O2 Delivery Nasal Cannula Room Air O2 Flow Rate 2 4.0 09/01/20 09/01/20 09/01/20 09/01/20 12:16 12:30 15:00 19:10 Temp 98.8 99.2 98.8 99.2 Pulse 84 90 87 92 Resp 18 22 B/P (MAP) 121/78 116/70 (85) 126/77 (93) 116/64 (81) Pulse Ox 97 98 99 O2 Delivery Nasal Cannula Nasal Cannula Nasal Cannula O2 Flow Rate 2.0 3.5 09/01/20 09/01/20 09/02/20 09/02/20 19:16 23:22 03:33 07:23 Temp 99.2 98.8 98.9 99.2 98.8 98.9 Pulse 88 92 90 Resp 24 22 20 B/P (MAP) 111/62 (78) 137/76 (96) 127/72 (90) Pulse Ox 99 98 96 O2 Delivery Nasal Cannula Nasal Cannula Nasal Cannula Nasal Cannula O2 Flow Rate 2.0 3.5 3.5 3.5 09/02/20 09/02/20 09/02/20 09/02/20 07:25 07:35 08:36 08:38 Pulse 90 90 B/P (MAP) 127/72 127/72 Pulse Ox 94 O2 Delivery Nasal Cannula Nasal Cannula O2 Flow Rate 3.0 3.0 Intake and Output 09/01/20 09/01/20 09/02/20 14:55 22:55 06:55 Intake Total 420 ml 418 ml 520 ml Output Total 250 ml 1300 ml 700 ml Balance 170 ml -882 ml -180 ml Justifications for Admission Other Justification Afib RVR Nutrition Consultation Dietary Evaluation: Recommendations by RD: Dietary education by RD, Increase Calorie Intake, Protein supplementation Comments: Continue w/cardiac diet as ordered, honor food preferences, provide snacks as requested REC Magic cup (orange) w/lunch and dinner REC Vit C, MVI - wound healing Expected Outcomes/Goals: PO intake to meet >75% est needs Malnutrition Findings: Body Fat Depletion (Non Severe: Mild Depletion Weight Status: Appropriate WOO DELUNA MD Sep 02, 2020 10:22
[2020-09-02 10:57] VITALS: BP 131/77
--- NOTE | 2020-09-02 11:39 | PDOC ---
[facility] PROGRESS NOTE Date of Service DOS: DATE: 09/02/20 TIME: 11:37 Chief Complaint Chief Complaint Assessment/Plan A. fib with RVR Acute systolic CHF Elevated troponins Elevated BNP Severe malnutrition PUI Plan: Will admit patient with cardiology consult. Still in A. fib with RVR; continue diltiazem infusion and follow cardiology recommendations O2 and Lasix as needed TSH (08/10/2020) 0.010; he will need to follow-up with endocrinology as outpatient. Will obtain free T3, free T4, and thyroid receptor antibodies COVID-19 pending FEN - Cardiac diet PPX - Eliquis FULL CODE Dispo - inpatient for above History of Present Illness History of Present Illness Patient 76-year-old male past medical history A. fib, who presents to the ED with complaints of shortness of breath for the past 3 days. He was recently admitted on 08/10/2024 A. fib with RVR and CHF exacerbations. Echocardiogram obtained at that time showed EF of 30%. Patient was taken to [facility] which showed nonobstructive coronary artery disease with patent left circumflex stent. Since that discharge he has not taken his medications because he states he was not able to get them. Patient was at home alone and gets around with the aid of electric wheelchair. States from his previous admission he was set up with home health, but they did not come to his home to assist him in obtaining his home medications. In the ER he received Cardizem bolus and digoxin without much improvement in his heart rate. Will admit patient for further medical management with cardiology consult. 08/29: Patient seen and evaluated. He is off amiodarone drip, currently in rate controlled A. fib. Continue monitor patient on POV controlled medications. He denies any chest pain or shortness of breath currently. Will follow cardiology recommendations. Discussed with RN. 08/30: Patient seen and evaluated. TSI <0.10, low suspicion for Graves disease, no palpable thyroid nodule. Will obtain thyroid ultrasound to evaluate. Possible subacute thyroiditis. He is agreeable to acute rehab, and will try to work with PT today. After further discussion patient with like to be DNR. Discussed with RN. 08/31: Patient seen and evaluated. Denies chest pain or burning sensation or shortness of breath. Unremarkable thyroid sonogram yesterday, TSI negative. Low suspicion for Graves' or toxic adenoma. Thyroid uptake scan will help in work- up. Suspect thyroiditis or medication (amiodarone) induced. Patient concerned that he would not be accepted to acute rehab because he is a sexual offender. He is willing to go to rehab, so I recommended to patient that he continue to work with physical therapy so referral can be placed. Creatinine improving discussed with RN. 09/01: Patient seen and evaluated. Afebrile today, breathing on 2 L nasal cannula. S/p cardioversion this morning. He is participating with physical therapy who is recommending skilled. Patient reports some significant pain in h is hips due to severe degenerative joint disease. Discussed with Dr. Morocho, physical therapy is causing patient some degree of pain due to his bad joint disease. I feel patient would benefit more from home with home health than acute rehab. He denies any chest pain or nausea. Discussed with RN and delinquency prevention social worker. 09/02: S/P cardioversion yesterday. Patient was assisted to SNU, but he would prefer to go home with home health as he would not be able to participate with acute rehab at SNU. Still complains of hip pain. Consultation has been placed to orthopedic surgery for aseptic necrosis. Vitals/I&O Vitals/I&O: Vital Signs Date Time Temp Pulse Resp B/P (MAP) Pulse Ox O2 Delivery O2 Flow Rate FiO2 09/02/20 11:17 99 Venturi Mask 6.0 09/02/20 10:57 98.4 89 24 131/77 (95) 98.4 I & O 09/01/20 09/01/20 09/02/20 15:00 23:00 07:00 Intake Total 420 ml 418 ml 520 ml Output Total 250 ml 1300 ml 700 ml Balance 170 ml -882 ml -180 ml Physical Exam General: Alert, Oriented X3, Cooperative, No acute distress Heart: Other (AFIB) Lungs: Clear Abdomen: Soft, No tenderness Extremities: No cyanosis, Other (1+ bilateral LE pitting edema) Skin: No significant lesion Labs Labs: Laboratory Tests Test 09/02/20 05:00 White Blood Count 8.6 x10^3/uL (4.0-11.0) Red Blood Count 4.07 x10^6/uL (4.30-5.70) Hemoglobin 11.8 g/dL (13.0-17.5) Hematocrit 35.6 % (39.0-53.0) Mean Corpuscular Volume 87 fL (79-100) Mean Corpuscular Hemoglobin 29 pg (25-35) Mean Corpuscular Hemoglobin Concent 33 g/dL (31-37) Red Cell Distribution Width 20.1 % (11.5-14.5) Platelet Count 195 x10^3/uL (140-400) Neutrophils (%) (Auto) 61 % (31-73) Lymphocytes (%) (Auto) 23 % (24-48) Monocytes (%) (Auto) 11 % (0-9) Eosinophils (%) (Auto) 5 % (0-3) Basophils (%) (Auto) 1 % (0-3) Neutrophils # (Auto) 5.2 x10^3/uL (1.8-7.7) Lymphocytes # (Auto) 2.0 x10^3/uL (1.0-4.8) Monocytes # (Auto) 0.9 x10^3/uL (0.0-1.1) Eosinophils # (Auto) 0.4 x10^3/uL (0.0-0.7) Basophils # (Auto) 0.1 x10^3/uL (0.0-0.2) Sodium Level 139 mmol/L (136-145) Potassium Level 3.6 mmol/L (3.5-5.1) Chloride Level 103 mmol/L (98-107) Carbon Dioxide Level 32 mmol/L (21-32) Anion Gap 4 (6-14) Blood Urea Nitrogen 14 mg/dL (8-26) Creatinine 1.2 mg/dL (0.7-1.3) Estimated GFR (Cockcroft-Gault) 59.2 Glucose Level 101 mg/dL (70-99) Calcium Level 8.3 mg/dL (8.5-10.1) Assessment and Plan Assessmemt and Plan Problems Medical Problems: (1) Atrial flutter Status: Acute (2) CHF (congestive heart failure) Status: Acute (3) COPD (chronic obstructive pulmonary disease) Status: Acute Comment Review of Relevant I have reviewed the following items ben (where applicable) has been applied. Justifications for Admission Other Justification Afib RVR JOSE A BURGOS MD Sep 02, 2020 11:39
[2020-09-02 14:59] VITALS: BP 108/63
--- NOTE | 2020-09-02 15:13 | PDOC ---
CARDIOLOGY PROGRESS NOTE SUBJECTIVE: No new events. OBJECTIVE: Vital Signs/I&O: Vital Signs Date Time Temp Pulse Resp B/P (MAP) Pulse Ox O2 Delivery O2 Flow Rate FiO2 09/02/20 14:59 98.6 85 22 108/63 (78) 100 Nasal Cannula 5.0 98.6 I & O 09/01/20 09/01/20 09/02/20 15:00 23:00 07:00 Intake Total 420 ml 418 ml 520 ml Output Total 250 ml 1300 ml 700 ml Balance 170 ml -882 ml -180 ml Objective: Regular rhythm Severe PAD with diminished pulses CURRENT MEDICATIONS: Reviewed DIAGNOSTIC TESTING: Labs: Laboratory Tests 09/02/20 05:00 Laboratory Tests Test 09/02/20 05:00 White Blood Count 8.6 x10^3/uL (4.0-11.0) Red Blood Count 4.07 x10^6/uL (4.30-5.70) L Hemoglobin 11.8 g/dL (13.0-17.5) L Hematocrit 35.6 % (39.0-53.0) L Mean Corpuscular Volume 87 fL (79-100) Mean Corpuscular Hemoglobin 29 pg (25-35) Mean Corpuscular Hemoglobin Concent 33 g/dL (31-37) Red Cell Distribution Width 20.1 % (11.5-14.5) H Platelet Count 195 x10^3/uL (140-400) Neutrophils (%) (Auto) 61 % (31-73) Lymphocytes (%) (Auto) 23 % (24-48) L Monocytes (%) (Auto) 11 % (0-9) H Eosinophils (%) (Auto) 5 % (0-3) H Basophils (%) (Auto) 1 % (0-3) Neutrophils # (Auto) 5.2 x10^3/uL (1.8-7.7) Lymphocytes # (Auto) 2.0 x10^3/uL (1.0-4.8) Monocytes # (Auto) 0.9 x10^3/uL (0.0-1.1) Eosinophils # (Auto) 0.4 x10^3/uL (0.0-0.7) Basophils # (Auto) 0.1 x10^3/uL (0.0-0.2) Sodium Level 139 mmol/L (136-145) Potassium Level 3.6 mmol/L (3.5-5.1) # Chloride Level 103 mmol/L (98-107) Carbon Dioxide Level 32 mmol/L (21-32) Anion Gap 4 (6-14) L Blood Urea Nitrogen 14 mg/dL (8-26) Creatinine 1.2 mg/dL (0.7-1.3) Estimated GFR (Cockcroft-Gault) 59.2 Glucose Level 101 mg/dL (70-99) H Calcium Level 8.3 mg/dL (8.5-10.1) L ASSESSMENT: 1. Severe mixed non-ischemic CMP 2. Afib with RVR s/p CVN, currently in SR on eliquis 3. HTN 4. COPD on O2. 5. Acute on chronic diastolic and systolic HF, moderate MR. PLAN: 1. Continue asa, eliquis, toprol XL, lasix and start lisinopril. 2. Plan for placement. Maintaining SR. 3. He is negative 5L over last 2.5 days. COntinue daily lasix. THanks. Justicifation of Admission Dx: Justifications for Admission: Justification of Admission Dx: Yes GRACY BRADSHAW MD Sep 02, 2020 15:13
[2020-09-02 19:15] VITALS: BP 105/59
[2020-09-02 23:17] VITALS: BP 119/67
[2020-09-03 03:30] VITALS: BP 133/76
[2020-09-03] MEDS: IPRATRPIUM/ALBUTEROL 0.5/2.5MG 3 ML NEBU. NEB SCH ×4 (06:57→20:00)
[2020-09-03 07:00] VITALS: BP 121/70
[2020-09-03] MEDS: POTASSIUM CHLORIDE 20 MEQ TABLET.ER. PO SCH (08:19)
[2020-09-03] MEDS: APIXABAN 5 MG TABLET. PO SCH ×2 (08:21→21:24)
[2020-09-03] MEDS: FUROSEMIDE 40 MG TABLET. PO SCH (08:21)
[2020-09-03] MEDS: ASPIRIN ENTERIC COATED 81 MG TABLET.DR. PO SCH (08:21)
[2020-09-03] MEDS: DIGOXIN 125 MCG TABLET. PO SCH (08:21)
[2020-09-03] MEDS: LISINOPRIL 5 MG TABLET. PO SCH (08:21)
[2020-09-03] MEDS: METOPROLOL SUCC 24HR ER 100 MG TAB.ER.24H. PO SCH (08:21)
[2020-09-03] MEDS: oxyCODONE/APAP 5/325 1 TAB TABLET PO PRN (08:27)
[2020-09-03 08:28] LABS: BASO # 0.2 x10^3/uL (0.0-0.2); BASO % 2 % (0-3); EOS # 0.5 x10^3/uL (0.0-0.7); EOS % 5 % (0-3); HEMATOCRIT 36.8 % (39.0-53.0); HEMOGLOBIN 12.2 g/dL (13.0-17.5); LYMPH # 1.7 x10^3/uL (1.0-4.8); LYMPH % 19 % (24-48); MEAN CORPUSCULAR HEMOGLOBIN 29 pg (25-35); MEAN CORPUSCULAR HGB CONC 33 g/dL (31-37); MEAN CORPUSCULAR VOLUME 88 fL (79-100); MONO # 1.1 x10^3/uL (0.0-1.1); MONO % 12 % (0-9); NEUT # 5.5 x10^3/uL (1.8-7.7); NEUT % 62 % (31-73); PLATELET COUNT 178 x10^3/uL (140-400); RED CELL DISTRIBUTION WIDTH 20.2 % (11.5-14.5); WHITE BLOOD COUNT 8.9 x10^3/uL (4.0-11.0)
[2020-09-03 08:47] LABS: CALCIUM 7.8 mg/dL (8.5-10.1); CREATININE 1.1 mg/dL (0.7-1.3); GFR 65.4; POTASSIUM 3.6 mmol/L (3.5-5.1)
[2020-09-03 10:53] VITALS: BP 96/55
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
--- NOTE | 2020-09-03 14:34 | PDOC2 ---
CONSULT Date of Consult Date of Consult DATE: 09/03/20 TIME: 14:33 Reason for Consult Reason for Consult: Left hip arthropathy Referring Physician Referring Physician: Bailee Identification/Chief Complaint Chief Complaint left hip pain, shortness of breath Source Source: Chart review, Patient History of Present Illness Reason for Visit: Patient is a 75 year old male who was admitted through the emergency room after having been brought to the ER by EMS due to trouble breathing for the last 4 days. Patient has a history of COPD, CHF, atrial fibrillation. Patient was admitted here on August 09 for atrial fibrillation and CHF. Patient had echocardiogram done and it showed EF of 30%.. Patient had cardiac catheterization done on August 15, 2020 and there was no intervention done. Patient had not taken any of his medications since he was discharged from the hospital because he could not get them. Patient was tested negative for COVID- 19 infection while he was in the hospital. Patient said he had not been eating or drinking much. He was seen by Dr. Torre last year and despite severe hip arthropathy was felt not a good surgical candidate for hip replacement due to his multiple comorbidities. Past Medical History Cardiovascular: CAD, HTN, Hyperlipidemia Pulmonary: COPD CENTRAL NERVOUS SYSTEM: Other GI: Other Heme/Onc: No pertinent hx Hepatobiliary: No pertinent hx Psych: Anxiety, Other Rheumatologic: No pertinent hx Infectious disease: No pertinent hx, Other Renal/: No pertinent hx Endocrine: No pertinent hx Past Surgical History Past Surgical History: Appendectomy, Tonsillectomy, Other Family History Family History: Heart Disease Social History <1 pack per day ALCOHOL: none Drugs: None Lives: Alone Current Problem List Problem List Problems Medical Problems: (1) Atrial flutter Status: Acute (2) CHF (congestive heart failure) Status: Acute (3) COPD (chronic obstructive pulmonary disease) Status: Acute Current Medications Current Medications Current Medications Diltiazem HCl (Cardizem Iv Push) 20 mg 1X ONCE IVP Last administered on 08/28at 14:18; Start 08/28/20 at 13:45; Stop 08/28/20 at 13:46; Status DC Digoxin (Lanoxin) 500 mcg 1X ONCE IV Last administered on 08/28/20at 13:45; Start 08/28/20 at 13:45; Stop 08/28/20 at 13:46; Status DC Sodium Chloride 500 ml @ 500 mls/hr 1X ONCE IV Last administered on 08/28/20at 15:48; Start 08/28/20 at 15:45; Stop 08/28/20 at 16:09; Status DC Diltiazem HCl 125 mg/Sodium Chloride 125 ml @ 5 mls/hr 1X ONCE IV ; Start 08/28/20 at 15:45; Stop 08/28/20 at 16:00; Status DC Metoprolol Tartrate (Lopressor Vial) 5 mg 1X ONCE IVP Last administered on 08/28/20at 16:22; Start 08/28/20 at 16:00; Stop 08/28/20 at 16:02; Status DC Ondansetron HCl (Zofran) 4 mg PRN Q6HRS PRN IVP NAUSEA/VOMITING Last administered on 08/29/20at 01:04; Start 08/28/20 at 16:30 Al Hydroxide/Mg Hydroxide (Mylanta Plus Xs) 30 ml PRN Q3HRS PRN PO HEARTBURN / GAS; Start 08/28/20 at 16:30 Calcium Carbonate/ Glycine (Tums) 500 mg PRN Q3HRS PRN PO UPSET STOMACH; Start 08/28/20 at 16:30 Zolpidem Tartrate (Ambien) 5 mg PRN QHS PRN PO INSOMNIA, MAY REPEAT IN 1HR; Start 08/28/20 at 16:30 Morphine Sulfate (Morphine Sulfate) 2 mg PRN Q1HR PRN IV PAIN-SEE COMMENTS Last administered on 08/28/20at 21:46; Start 08/28/20 at 16:30 Acetaminophen (Tylenol) 650 mg PRN Q6HRS PRN PO Headaches, Temp > 101.5F; Start 08/28/20 at 16:30 Magnesium Hydroxide (Milk Of Magnesia) 2,400 mg PRN Q12HR PRN PO CONSTIPATION 3RD CHOICE; Start 08/28/20 at 16:30 Bisacodyl (Dulcolax Supp) 10 mg PRN DAILY PRN [place] CONSTIPATION; Start 08/28/20 at 16:30 Apixaban (Eliquis) 5 mg BID PO Last administered on 08/29/20at 08:42; Start 08/28/20 at 21:00; Stop 08/29/20 at 17:31; Status DC Aspirin (Ecotrin) 81 mg DAILYWBKFT PO Last administered on 09/03/20at 08:21; Start 08/29/20 at 08:00 Bisacodyl (Dulcolax Tab) 5 mg PRN DAILY PRN PO CONSTIPATION 2ND CHOICE; Start 08/28/20 at 16:45 Furosemide (Lasix) 20 mg PRN DAILY PRN PO Swelling/weight gain; Start 08/28/20 at 16:45 Albuterol/ Ipratropium (Duoneb) 3 ml RTQID NEB Last administered on 08/31/20at 09:53; Start 08/28/20 at 17:00 Lisinopril (Prinivil) 5 mg DAILY PO ; Start 08/29/20 at 09:00; Stop 08/29/20 at 17:35; Status DC Metoprolol Succinate (Toprol Xl) 50 mg DAILY PO Last administered on 09/03/20at 08:21; Start 08/29/20 at 09:00 Oxycodone/ Acetaminophen (Percocet 5/325) 1 tab PRN Q6HRS PRN PO MODERATE TO SEVERE PAIN Last administered on 09/03/20at 08:27; Start 08/28/20 at 16:45 Polyethylene Glycol (miraLAX PACKET) 17 gm PRN DAILY PRN PO constipation; Start 08/28/20 at 16:45 Potassium Chloride (Klor-Con) 20 meq DAILYWBKFT PO Last administered on 09/03/20at 08:19; Start 08/29/20 at 08:00 Nicotine (Nicoderm Cq 14mg) 1 patch PRN DAILY PRN TD SMOKING CESSATION; Start 08/28/20 at 18:15; Stop 08/28/20 at 18:20; Status DC Nicotine (Nicoderm Cq 21mg) 1 patch PRN DAILY PRN TD SMOKING CESSATION Last administered on 08/29/20at 00:18; Start 08/28/20 at 18:30 Metoprolol Tartrate (Lopressor Vial) 5 mg 1X ONCE IVP Last administered on 08/28/20at 19:29; Start 08/28/20 at 19:15; Stop 08/28/20 at 19:16; Status DC Metoprolol Tartrate (Lopressor) 50 mg 1X ONCE PO Last administered on 08/28/20at 20:38; Start 08/28/20 at 19:15; Stop 08/28/20 at 19:16; Status DC Amiodarone HCl 300 mg/Dextrose 106 ml @ 618 mls/hr 1X ONCE IV Last administered on 08/28/20at 20:40; Start 08/28/20 at 19:30; Stop 08/28/20 at 19:40; Status DC Amiodarone HCl 450 mg/Dextrose 259 ml @ 0 mls/hr 1X ONCE IV Last administered on 08/28/20at 20:40; Start 08/28/20 at 20:30; Stop 08/28/20 at 20:31; Status DC Lorazepam (Ativan) 1 mg PRN Q6HRS PRN PO ANXIETY / AGITATION Last administered on 08/29/20at 01:41; Start 08/28/20 at 22:15 Furosemide (Lasix) 40 mg 1X ONCE IVP Last administered on 08/29/20at 05:58; Start 08/29/20 at 03:30; Stop 08/29/20 at 03:31; Status DC Amiodarone HCl 450 mg/Dextrose 259 ml @ 16.7 mls/hr 1X ONCE IV Last administered on 08/29/20at 05:46; Start 08/29/20 at 06:00; Stop 08/29/20 at 10:45; Status DC Info (Anti-Coagulation Monitoring By Pharmacy) 1 each PRN DAILY PRN MC SEE COMMENTS Last administered on 08/31/20at 13:40; Start 08/29/20 at 08:15 Furosemide (Lasix) 40 mg DAILY IVP Last administered on 08/30/20at 08:35; Start 08/29/20 at 11:00; Stop 08/30/20 at 13:38; Status DC Digoxin (Lanoxin) 250 mcg 1X ONCE IV Last administered on 08/30/20at 08:40; Start 08/30/20 at 08:00; Stop 08/30/20 at 08:01; Status DC Metoprolol Tartrate (Lopressor Vial) 5 mg PRN Q6HRS PRN IVP TACHYCARDIA Last administered on 09/01/20at 01:49; Start 08/30/20 at 08:00 Magnesium Sulfate 50 ml @ 25 mls/hr 1X ONCE IV Last administered on 08/30/20at 12:42; Start 08/30/20 at 12:30; Stop 08/30/20 at 14:29; Status DC Furosemide (Lasix) 40 mg DAILY PO ; Start 08/31/20 at 09:00; Stop 08/30/20 at 14:10; Status DC Furosemide (Lasix) 40 mg DAILY IVP Last administered on 08/31/20at 08:30; Start 08/31/20 at 09:00; Stop 08/31/20 at 14:38; Status DC Digoxin (Lanoxin) 125 mcg DAILY PO Last administered on 09/03/20at 08:21; Start 08/31/20 at 12:30 Sodium Chloride (Normal Saline Flush) 10 ml QSHIFT PRN IV AFTER MEDS AND BLOOD DRAWS; Start 08/31/20 at 12:00 Apixaban (Eliquis) 5 mg BID PO Last administered on 09/03/20at 08:21; Start 08/31/20 at 21:00 Furosemide (Lasix) 40 mg DAILY PO Last administered on 09/03/20at 08:21; Start 09/01/20 at 09:00 Ondansetron HCl (Zofran) 4 mg PRN Q6HRS PRN IV NAUSEA/VOMITING; Start 09/01/20 at 07:00; Stop 09/02/20 at 06:59; Status DC Fentanyl Citrate (Fentanyl 2ml Vial) 25 mcg PRN Q5MIN PRN IV MILD PAIN 1-3 Last administered on 09/01/20at 11:34; Start 09/01/20 at 07:00; Stop 09/02/20 at 06:59; Status DC Fentanyl Citrate (Fentanyl 2ml Vial) 50 mcg PRN Q5MIN PRN IV MODERATE TO SEVERE PAIN; Start 09/01/20 at 07:00; Stop 09/02/20 at 06:59; Status DC Morphine Sulfate (Morphine Sulfate) 1 mg PRN Q10MIN PRN IV SEVERE PAIN 7-10; Start 09/01/20 at 07:00; Stop 09/02/20 at 06:59; Status DC Ringer's Solution 1,000 ml @ 30 mls/hr Q24H IV Last administered on 09/01/20at 10:36; Start 09/01/20 at 07:00; Stop 09/01/20 at 18:59; Status DC Hydromorphone HCl (Dilaudid) 0.5 mg PRN Q10MIN PRN IV SEV PAIN, Second choice; Start 09/01/20 at 07:00; Stop 09/02/20 at 06:59; Status DC Prochlorperazine Edisylate (Compazine) 5 mg PACU PRN PRN IV NAUSEA, MRX1; Start 09/01/20 at 07:00; Stop 09/02/20 at 06:59; Status DC Apixaban (Eliquis) 5 mg BID PO ; Start 08/31/20 at 21:00; Status UNV Lidocaine HCl (Viscous Lidocaine) 15 ml STK-MED ONCE .ROUTE ; Start 09/01/20 at 08:58; Stop 09/01/20 at 08:58; Status DC Lidocaine HCl (Xylocaine 2% Topical 30gm Tube) 30 nino STK-MED ONCE TP ; Start 09/01/20 at 08:58; Stop 09/01/20 at 08:59; Status DC Benzocaine (Hurricaine One) 1 spray STK-MED ONCE .ROUTE ; Start 09/01/20 at 08:58; Stop 09/01/20 at 08:59; Status DC Lidocaine HCl (Xylocaine 2% Topical 30gm Tube) 1 nino 1X ONCE TP Last administered on 09/01/20at 10:32; Start 09/01/20 at 09:15; Stop 09/01/20 at 09:17; Status DC Lidocaine HCl (Viscous Lidocaine) 15 ml 1X ONCE SWSW Last administered on 09/01/20at 10:32; Start 09/01/20 at 09:15; Stop 09/01/20 at 09:17; Status DC Benzocaine (Hurricaine One) 2 spray 1X ONCE MM Last administered on 09/01/20at 10:31; Start 09/01/20 at 09:15; Stop 09/01/20 at 09:17; Status DC Propofol (Diprivan) 200 mg STK-MED ONCE IV ; Start 09/01/20 at 10:30; Stop 09/01/20 at 10:30; Status DC Lidocaine HCl (Lidocaine Pf 2% Vial) 5 ml STK-MED ONCE .ROUTE ; Start 09/01/20 at 10:30; Stop 09/01/20 at 10:30; Status DC Amiodarone HCl 150 mg/Dextrose 103 ml @ 618 mls/hr 1X ONCE IV Last administered on 09/01/20at 11:01; Start 09/01/20 at 11:00; Stop 09/01/20 at 11:09; Status DC Fentanyl Citrate (Fentanyl 2ml Vial) 100 mcg STK-MED ONCE .ROUTE ; Start 09/01/20 at 11:33; Stop 09/01/20 at 11:34; Status DC Lisinopril (Prinivil) 5 mg DAILY PO Last administered on 09/03/20at 08:21; Start 09/03/20 at 09:00 Active Scripts Active Furosemide 20 Mg Tablet 1 Tab PO PRN DAILY PRN 30 Days For weight gain > 1 Kg. Dry weight 75.8 KG Lisinopril 5 Mg Tablet 5 Mg PO DAILY 30 Days Metoprolol Succinate ( Xl ) (Metoprolol Succinate) 100 Mg Tab.er.24h 50 Mg PO DAILY 90 Days Eliquis (Apixaban) 5 Mg Tablet 5 Mg PO BID 30 Days Pantoprazole Sodium (Pantoprazole Sodium) 40 Mg Tablet. 40 Mg PO DAILYAC 30 Days Polyethylene Glycol 3350 17 Gm Powd.pack 17 Gm PO PRN DAILY PRN 28 Days Bisacodyl 5 Mg Tablet. 5 Mg PO PRN DAILY PRN 14 Days Acetaminophen 500 Mg Tablet 500 Mg PO PRN Q6HRS PRN 30 Days Aspirin Ec (Aspirin) 81 Mg Tablet. 81 Mg PO DAILYWBKFT 30 Days Duoneb 0.5-3(2.5) Mg/3 Ml (Albuterol/Ipratropium) 3 Ml Ampul.neb 3 Ml NEB RTQID 30 Days Vitamin C (Ascorbic Acid) 500 Mg Tablet 500 Mg PO DAILY 30 Days Thera-M Tablet (Multivits,Ca,Minerals/Iron/Fa) 1 Each Tablet 1 Tab PO DAILY 30 Days Klor-Con M20 (Potassium Chloride) 20 Meq Tab.er.prt 20 Meq PO DAILYWBKFT 30 Days Percocet 5-325 Mg Tablet (Oxycodone/Acetaminophen) 1 Each Tablet 1 Tab PO PRN Q6HRS PRN 6 Days Reported Symbicort 80-4.5 Mcg Inhaler (Budesonide/Formoterol Fumarate) 10.2 Gm Hfa.aer.ad 2 Puff IH BID Allergies Allergies: Coded Allergies: No Known Drug Allergies (Unverified , 09/01/20) ROS Review of System Constitutional: Denies fever or chills. Eyes: Denies change in visual acuity. HENT: Denies nasal congestion or sore throat. Respiratory: Positive for cough or shortness of breath. Cardiovascular: Denies chest pain , positive for edema. GI: Denies abdominal pain, nausea, vomiting, bloody stools or diarrhea. : Denies dysuria. Musculoskeletal: lleft hip and knee pain. Integument: Denies rash. Neurologic: Denies headache, focal weakness or sensory changes. Endocrine: Denies polyuria or polydipsia. Lymphatic: Denies swollen glands. Psychiatric: Denies depression or anxiety. Physical Exam General: Alert, Cooperative HEENT: PERRLA Heart: Regular rate Abdomen: Soft Extremities: Other (Decreased range of motion of the left hip and the knee. Pain with range of motion of the hip and knee. Light touch sensation intact. Capillary refill slightly delayed. ) Neuro: Normal speech, Sensation intact Psych/Mental Status: Mental status NL, Mood NL Vitals VITALS Vital Signs Date Time Temp Pulse Resp B/P (MAP) Pulse Ox O2 Delivery O2 Flow Rate FiO2 09/03/20 10:53 98.9 81 20 96/55 (69) 95 Nasal Cannula 5.0 98.9 Labs Labs Laboratory Tests Test 09/02/20 05:00 09/03/20 07:58 White Blood Count 8.6 x10^3/uL (4.0-11.0) 8.9 x10^3/uL (4.0-11.0) Red Blood Count 4.07 x10^6/uL (4.30-5.70) 4.20 x10^6/uL (4.30-5.70) Hemoglobin 11.8 g/dL (13.0-17.5) 12.2 g/dL (13.0-17.5) Hematocrit 35.6 % (39.0-53.0) 36.8 % (39.0-53.0) Mean Corpuscular Volume 87 fL (79-100) 88 fL (79-100) Mean Corpuscular Hemoglobin 29 pg (25-35) 29 pg (25-35) Mean Corpuscular Hemoglobin Concent 33 g/dL (31-37) 33 g/dL (31-37) Red Cell Distribution Width 20.1 % (11.5-14.5) 20.2 % (11.5-14.5) Platelet Count 195 x10^3/uL (140-400) 178 x10^3/uL (140-400) Neutrophils (%) (Auto) 61 % (31-73) 62 % (31-73) Lymphocytes (%) (Auto) 23 % (24-48) 19 % (24-48) Monocytes (%) (Auto) 11 % (0-9) 12 % (0-9) Eosinophils (%) (Auto) 5 % (0-3) 5 % (0-3) Basophils (%) (Auto) 1 % (0-3) 2 % (0-3) Neutrophils # (Auto) 5.2 x10^3/uL (1.8-7.7) 5.5 x10^3/uL (1.8-7.7) Lymphocytes # (Auto) 2.0 x10^3/uL (1.0-4.8) 1.7 x10^3/uL (1.0-4.8) Monocytes # (Auto) 0.9 x10^3/uL (0.0-1.1) 1.1 x10^3/uL (0.0-1.1) Eosinophils # (Auto) 0.4 x10^3/uL (0.0-0.7) 0.5 x10^3/uL (0.0-0.7) Basophils # (Auto) 0.1 x10^3/uL (0.0-0.2) 0.2 x10^3/uL (0.0-0.2) Sodium Level 139 mmol/L (136-145) 138 mmol/L (136-145) Potassium Level 3.6 mmol/L (3.5-5.1) 3.6 mmol/L (3.5-5.1) Chloride Level 103 mmol/L (98-107) 102 mmol/L (98-107) Carbon Dioxide Level 32 mmol/L (21-32) 31 mmol/L (21-32) Anion Gap 4 (6-14) 5 (6-14) Blood Urea Nitrogen 14 mg/dL (8-26) 12 mg/dL (8-26) Creatinine 1.2 mg/dL (0.7-1.3) 1.1 mg/dL (0.7-1.3) Estimated GFR (Cockcroft-Gault) 59.2 65.4 Glucose Level 101 mg/dL (70-99) 97 mg/dL (70-99) Calcium Level 8.3 mg/dL (8.5-10.1) 7.8 mg/dL (8.5-10.1) Laboratory Tests Test 09/03/20 07:58 White Blood Count 8.9 x10^3/uL (4.0-11.0) Red Blood Count 4.20 x10^6/uL (4.30-5.70) Hemoglobin 12.2 g/dL (13.0-17.5) Hematocrit 36.8 % (39.0-53.0) Mean Corpuscular Volume 88 fL (79-100) Mean Corpuscular Hemoglobin 29 pg (25-35) Mean Corpuscular Hemoglobin Concent 33 g/dL (31-37) Red Cell Distribution Width 20.2 % (11.5-14.5) Platelet Count 178 x10^3/uL (140-400) Neutrophils (%) (Auto) 62 % (31-73) Lymphocytes (%) (Auto) 19 % (24-48) Monocytes (%) (Auto) 12 % (0-9) Eosinophils (%) (Auto) 5 % (0-3) Basophils (%) (Auto) 2 % (0-3) Neutrophils # (Auto) 5.5 x10^3/uL (1.8-7.7) Lymphocytes # (Auto) 1.7 x10^3/uL (1.0-4.8) Monocytes # (Auto) 1.1 x10^3/uL (0.0-1.1) Eosinophils # (Auto) 0.5 x10^3/uL (0.0-0.7) Basophils # (Auto) 0.2 x10^3/uL (0.0-0.2) Sodium Level 138 mmol/L (136-145) Potassium Level 3.6 mmol/L (3.5-5.1) Chloride Level 102 mmol/L (98-107) Carbon Dioxide Level 31 mmol/L (21-32) Anion Gap 5 (6-14) Blood Urea Nitrogen 12 mg/dL (8-26) Creatinine 1.1 mg/dL (0.7-1.3) Estimated GFR (Cockcroft-Gault) 65.4 Glucose Level 97 mg/dL (70-99) Calcium Level 7.8 mg/dL (8.5-10.1) Images Images Report reviewed and images independently reviewed of the left hip from February 2020. He has left hip arthropathy. [facility] [address] [place] [address] IMAGING REPORT Signed PATIENT: PRESTON HAMILTON ACCOUNT: [id number] : 1945 LOCATION: [facility] AGE: 74 SEX: M EXAM STATUS: REG CLI ORD. PHYSICIAN: ARONLD TORRE II, MD REASON: left hip pain. no known injury PROCEDURE: HIP LEFT 1 VIEW WITH PELVIS HIP LEFT 1 VIEW WITH PELVIS Clinical Indication: Reason: left hip pain. no known injury Comparison: None. Findings: Standing AP view. There is severe arthropathy of the left hip. There is deformity and flattening of the left femoral head. There is severe joint space narrowing. Lucency of the acetabulum may be subchondral cystic change. There are marginal osteophytes. There is mild arthropathy of the right hip. No acute fracture or dislocation is seen. Visualized pelvic bones appear intact. Arterial calcifications are seen. IMPRESSION: There is severe arthropathy of the left hip. Electronically signed by: Brennon Hernandez MD (03/03/2020 3:40 PM) [id number] DICTATED and SIGNED BY: BRENNON HERNANDEZ MD DATE: 03/03/20 1540 Assessment/Plan Assessment/Plan Left hip arthropathy. Multiple comorbidities. Acute CHF exacerbation would preclude elective hip replacement surgery. I would not recommend surgical treatment for hip arthritis at this time. Consider office follow-up when his overall health has improved. ARTHUR MINA MD Sep 03, 2020 14:34
[2020-09-03 15:00] VITALS: BP 95/85
[2020-09-03 19:20] VITALS: BP 123/70
[2020-09-03 23:15] VITALS: BP 109/55
[2020-09-04] MEDS: oxyCODONE/APAP 5/325 1 TAB TABLET PO PRN ×2 (00:58→09:45)
[2020-09-04 02:00] VITALS: BP 112/60
[2020-09-04 07:00] VITALS: BP 127/63
[2020-09-04 07:17] LABS: CALCIUM 8.1 mg/dL (8.5-10.1); CREATININE 1.1 mg/dL (0.7-1.3); GFR 65.4; POTASSIUM 3.4 mmol/L (3.5-5.1)
[2020-09-04] MEDS: IPRATRPIUM/ALBUTEROL 0.5/2.5MG 3 ML NEBU. NEB SCH ×3 (07:23→15:16)
[2020-09-04 07:29] LABS: BASO # 0.2 x10^3/uL (0.0-0.2); BASO % 2 % (0-3); EOS # 0.7 x10^3/uL (0.0-0.7); EOS % 8 % (0-3); HEMATOCRIT 37.5 % (39.0-53.0); HEMOGLOBIN 12.4 g/dL (13.0-17.5); LYMPH # 1.7 x10^3/uL (1.0-4.8); LYMPH % 19 % (24-48); MEAN CORPUSCULAR HEMOGLOBIN 29 pg (25-35); MEAN CORPUSCULAR HGB CONC 33 g/dL (31-37); MEAN CORPUSCULAR VOLUME 87 fL (79-100); MONO # 0.9 x10^3/uL (0.0-1.1); MONO % 11 % (0-9); NEUT # 5.4 x10^3/uL (1.8-7.7); NEUT % 60 % (31-73); PLATELET COUNT 185 x10^3/uL (140-400); RED CELL DISTRIBUTION WIDTH 19.2 % (11.5-14.5); WHITE BLOOD COUNT 8.9 x10^3/uL (4.0-11.0)
--- NOTE | 2020-09-04 08:52 | PDOC ---
PROGRESS NOTES Date of Service DATE: 09/04/20 TIME: 08:48 Subjective Subjective No new complaints. Objective Objective Vital Signs Date Time Temp Pulse Resp B/P (MAP) Pulse Ox O2 Delivery O2 Flow Rate FiO2 09/04/20 07:37 Nasal Cannula 3.0 09/04/20 02:00 98.3 76 18 112/60 (77) 98 98.3 Intake and Output 09/04/20 07:00 Intake Total 1120 ml Output Total 3125 ml Balance -2005 ml Intake Oral 1120 ml Output Urine Total 3125 ml Physical Exam Physical Exam He is supine in bed with left hip in flexion and he admits continued pain with any movement. Orthopedics felt he had too many medical problems and not a candidate for left hip surgery at this time. Assessment Assessment Problems Medical Problems: (1) Atrial flutter Status: Acute (2) CHF (congestive heart failure) Status: Acute (3) COPD (chronic obstructive pulmonary disease) Status: Acute Plan Plan of Senior Living when medically stable with home health follow up and follow up. Comment Review of Relevant I have reviewed the following items ben (where applicable) has been applied. Labs Laboratory Tests Test 09/03/20 07:58 09/04/20 06:20 White Blood Count 8.9 x10^3/uL (4.0-11.0) 8.9 x10^3/uL (4.0-11.0) Red Blood Count 4.20 x10^6/uL (4.30-5.70) 4.30 x10^6/uL (4.30-5.70) Hemoglobin 12.2 g/dL (13.0-17.5) 12.4 g/dL (13.0-17.5) Hematocrit 36.8 % (39.0-53.0) 37.5 % (39.0-53.0) Mean Corpuscular Volume 88 fL (79-100) 87 fL (79-100) Mean Corpuscular Hemoglobin 29 pg (25-35) 29 pg (25-35) Mean Corpuscular Hemoglobin Concent 33 g/dL (31-37) 33 g/dL (31-37) Red Cell Distribution Width 20.2 % (11.5-14.5) 19.2 % (11.5-14.5) Platelet Count 178 x10^3/uL (140-400) 185 x10^3/uL (140-400) Neutrophils (%) (Auto) 62 % (31-73) 60 % (31-73) Lymphocytes (%) (Auto) 19 % (24-48) 19 % (24-48) Monocytes (%) (Auto) 12 % (0-9) 11 % (0-9) Eosinophils (%) (Auto) 5 % (0-3) 8 % (0-3) Basophils (%) (Auto) 2 % (0-3) 2 % (0-3) Neutrophils # (Auto) 5.5 x10^3/uL (1.8-7.7) 5.4 x10^3/uL (1.8-7.7) Lymphocytes # (Auto) 1.7 x10^3/uL (1.0-4.8) 1.7 x10^3/uL (1.0-4.8) Monocytes # (Auto) 1.1 x10^3/uL (0.0-1.1) 0.9 x10^3/uL (0.0-1.1) Eosinophils # (Auto) 0.5 x10^3/uL (0.0-0.7) 0.7 x10^3/uL (0.0-0.7) Basophils # (Auto) 0.2 x10^3/uL (0.0-0.2) 0.2 x10^3/uL (0.0-0.2) Sodium Level 138 mmol/L (136-145) 141 mmol/L (136-145) Potassium Level 3.6 mmol/L (3.5-5.1) 3.4 mmol/L (3.5-5.1) Chloride Level 102 mmol/L (98-107) 104 mmol/L (98-107) Carbon Dioxide Level 31 mmol/L (21-32) 34 mmol/L (21-32) Anion Gap 5 (6-14) 3 (6-14) Blood Urea Nitrogen 12 mg/dL (8-26) 11 mg/dL (8-26) Creatinine 1.1 mg/dL (0.7-1.3) 1.1 mg/dL (0.7-1.3) Estimated GFR (Cockcroft-Gault) 65.4 65.4 Glucose Level 97 mg/dL (70-99) 93 mg/dL (70-99) Calcium Level 7.8 mg/dL (8.5-10.1) 8.1 mg/dL (8.5-10.1) Laboratory Tests Test 09/04/20 06:20 White Blood Count 8.9 x10^3/uL (4.0-11.0) Red Blood Count 4.30 x10^6/uL (4.30-5.70) Hemoglobin 12.4 g/dL (13.0-17.5) Hematocrit 37.5 % (39.0-53.0) Mean Corpuscular Volume 87 fL (79-100) Mean Corpuscular Hemoglobin 29 pg (25-35) Mean Corpuscular Hemoglobin Concent 33 g/dL (31-37) Red Cell Distribution Width 19.2 % (11.5-14.5) Platelet Count 185 x10^3/uL (140-400) Neutrophils (%) (Auto) 60 % (31-73) Lymphocytes (%) (Auto) 19 % (24-48) Monocytes (%) (Auto) 11 % (0-9) Eosinophils (%) (Auto) 8 % (0-3) Basophils (%) (Auto) 2 % (0-3) Neutrophils # (Auto) 5.4 x10^3/uL (1.8-7.7) Lymphocytes # (Auto) 1.7 x10^3/uL (1.0-4.8) Monocytes # (Auto) 0.9 x10^3/uL (0.0-1.1) Eosinophils # (Auto) 0.7 x10^3/uL (0.0-0.7) Basophils # (Auto) 0.2 x10^3/uL (0.0-0.2) Sodium Level 141 mmol/L (136-145) Potassium Level 3.4 mmol/L (3.5-5.1) Chloride Level 104 mmol/L (98-107) Carbon Dioxide Level 34 mmol/L (21-32) Anion Gap 3 (6-14) Blood Urea Nitrogen 11 mg/dL (8-26) Creatinine 1.1 mg/dL (0.7-1.3) Estimated GFR (Cockcroft-Gault) 65.4 Glucose Level 93 mg/dL (70-99) Calcium Level 8.1 mg/dL (8.5-10.1) Medications Current Medications Diltiazem HCl (Cardizem Iv Push) 20 mg 1X ONCE IVP Last administered on 08/28/20at 14:18; Start 08/28/20 at 13:45; Stop 08/28/20 at 13:46; Status DC Digoxin (Lanoxin) 500 mcg 1X ONCE IV Last administered on 08/28/20at 13:45; Start 08/28/20 at 13:45; Stop 08/28/20 at 13:46; Status DC Sodium Chloride 500 ml @ 500 mls/hr 1X ONCE IV Last administered on 08/28/20at 15:48; Start 08/28/20 at 15:45; Stop 08/28/20 at 16:09; Status DC Diltiazem HCl 125 mg/Sodium Chloride 125 ml @ 5 mls/hr 1X ONCE IV ; Start 08/28/20 at 15:45; Stop 08/28/20 at 16:00; Status DC Metoprolol Tartrate (Lopressor Vial) 5 mg 1X ONCE IVP Last administered on 08/28/20at 16:22; Start 08/28/20 at 16:00; Stop 08/28/20 at 16:02; Status DC Ondansetron HCl (Zofran) 4 mg PRN Q6HRS PRN IVP NAUSEA/VOMITING Last administer ed on 08/29/20at 01:04; Start 08/28/20 at 16:30 Al Hydroxide/Mg Hydroxide (Mylanta Plus Xs) 30 ml PRN Q3HRS PRN PO HEARTBURN / GAS; Start 08/28/20 at 16:30 Calcium Carbonate/ Glycine (Tums) 500 mg PRN Q3HRS PRN PO UPSET STOMACH; Start 08/28/20 at 16:30 Zolpidem Tartrate (Ambien) 5 mg PRN QHS PRN PO INSOMNIA, MAY REPEAT IN 1HR; Start 08/28/20 at 16:30 Morphine Sulfate (Morphine Sulfate) 2 mg PRN Q1HR PRN IV PAIN-SEE COMMENTS Last administered on 08/28/20at 21:46; Start 08/28/20 at 16:30 Acetaminophen (Tylenol) 650 mg PRN Q6HRS PRN PO Headaches, Temp > 101.5F Last administered on 09/03/20at 21:26; Start 08/28/20 at 16:30 Magnesium Hydroxide (Milk Of Magnesia) 2,400 mg PRN Q12HR PRN PO CONSTIPATION 3RD CHOICE; Start 08/28/20 at 16:30 Bisacodyl (Dulcolax Supp) 10 mg PRN DAILY PRN CA CONSTIPATION; Start 08/28/20 at 16:30 Apixaban (Eliquis) 5 mg BID PO Last administered on 08/29/20at 08:42; Start 08/28/20 at 21:00; Stop 08/29/20 at 17:31; Status DC Aspirin (Ecotrin) 81 mg DAILYWBKFT PO Last administered on 09/03/20at 08:21; Start 08/29/20 at 08:00 Bisacodyl (Dulcolax Tab) 5 mg PRN DAILY PRN PO CONSTIPATION 2ND CHOICE; Start 08/28/20 at 16:45 Furosemide (Lasix) 20 mg PRN DAILY PRN PO Swelling/weight gain; Start 08/28/20 at 16:45 Albuterol/ Ipratropium (Duoneb) 3 ml RTQID NEB Last administered on 08/31/20at 09:53; Start 08/28/20 at 17:00 Lisinopril (Prinivil) 5 mg DAILY PO ; Start 08/29/20 at 09:00; Stop 08/29/20 at 17:35; Status DC Metoprolol Succinate (Toprol Xl) 50 mg DAILY PO Last administered on 09/03/20at 08:21; Start 08/29/20 at 09:00 Oxycodone/ Acetaminophen (Percocet 5/325) 1 tab PRN Q6HRS PRN PO MODERATE TO SEVERE PAIN Last administered on 09/04/20at 00:58; Start 08/28/20 at 16:45 Polyethylene Glycol (miraLAX PACKET) 17 gm PRN DAILY PRN PO constipation; Start 08/28/20 at 16:45 Potassium Chloride (Klor-Con) 20 meq DAILYWBKFT PO Last administered on 09/03/20at 08:19; Start 08/29/20 at 08:00 Nicotine (Nicoderm Cq 14mg) 1 patch PRN DAILY PRN TD SMOKING CESSATION; Start 08/28/20 at 18:15; Stop 08/28/20 at 18:20; Status DC Nicotine (Nicoderm Cq 21mg) 1 patch PRN DAILY PRN TD SMOKING CESSATION Last administered on 08/29/20at 00:18; Start 08/28/20 at 18:30 Metoprolol Tartrate (Lopressor Vial) 5 mg 1X ONCE IVP Last administered on 08/28/20at 19:29; Start 08/28/20 at 19:15; Stop 08/28/20 at 19:16; Status DC Metoprolol Tartrate (Lopressor) 50 mg 1X ONCE PO Last administered on 08/28/20at 20:38; Start 08/28/20 at 19:15; Stop 08/28/20 at 19:16; Status DC Amiodarone HCl 300 mg/Dextrose 106 ml @ 618 mls/hr 1X ONCE IV Last administered on 08/28/20at 20:40; Start 08/28/20 at 19:30; Stop 08/28/20 at 19:40; Status DC Amiodarone HCl 450 mg/Dextrose 259 ml @ 0 mls/hr 1X ONCE IV Last administered on 08/28/20at 20:40; Start 08/28/20 at 20:30; Stop 08/28/20 at 20:31; Status DC Lorazepam (Ativan) 1 mg PRN Q6HRS PRN PO ANXIETY / AGITATION Last administered on 08/29/20at 01:41; Start 08/28/20 at 22:15 Furosemide (Lasix) 40 mg 1X ONCE IVP Last administered on 08/29/20at 05:58; Start 08/29/20 at 03:30; Stop 08/29/20 at 03:31; Status DC Amiodarone HCl 450 mg/Dextrose 259 ml @ 16.7 mls/hr 1X ONCE IV Last administered on 08/29/20at 05:46; Start 08/29/20 at 06:00; Stop 08/29/20 at 10:45; Status DC Info (Anti-Coagulation Monitoring By Pharmacy) 1 each PRN DAILY PRN MC SEE COMMENTS Last administered on 08/31/20at 13:40; Start 08/29/20 at 08:15 Furosemide (Lasix) 40 mg DAILY IVP Last administered on 08/30/20at 08:35; Start 08/29/20 at 11:00; Stop 08/30/20 at 13:38; Status DC Digoxin (Lanoxin) 250 mcg 1X ONCE IV Last administered on 08/30/20at 08:40; Start 08/30/20 at 08:00; Stop 08/30/20 at 08:01; Status DC Metoprolol Tartrate (Lopressor Vial) 5 mg PRN Q6HRS PRN IVP TACHYCARDIA Last administered on 09/01/20at 01:49; Start 08/30/20 at 08:00 Magnesium Sulfate 50 ml @ 25 mls/hr 1X ONCE IV Last administered on 08/30/20at 12:42; Start 08/30/20 at 12:30; Stop 08/30/20 at 14:29; Status DC Furosemide (Lasix) 40 mg DAILY PO ; Start 08/31/20 at 09:00; Stop 08/30/20 at 14 :10; Status DC Furosemide (Lasix) 40 mg DAILY IVP Last administered on 08/31/20at 08:30; Start 08/31/20 at 09:00; Stop 08/31/20 at 14:38; Status DC Digoxin (Lanoxin) 125 mcg DAILY PO Last administered on 09/03/20at 08:21; Start 08/31/20 at 12:30 Sodium Chloride (Normal Saline Flush) 10 ml QSHIFT PRN IV AFTER MEDS AND BLOOD DRAWS; Start 08/31/20 at 12:00 Apixaban (Eliquis) 5 mg BID PO Last administered on 09/03/20at 21:24; Start 08/31/20 at 21:00 Furosemide (Lasix) 40 mg DAILY PO Last administered on 09/03/20at 08:21; Start 09/01/20 at 09:00 Ondansetron HCl (Zofran) 4 mg PRN Q6HRS PRN IV NAUSEA/VOMITING; Start 09/01/20 at 07:00; Stop 09/02/20 at 06:59; Status DC Fentanyl Citrate (Fentanyl 2ml Vial) 25 mcg PRN Q5MIN PRN IV MILD PAIN 1-3 Last administered on 09/01/20at 11:34; Start 09/01/20 at 07:00; Stop 09/02/20 at 06:59; Status DC Fentanyl Citrate (Fentanyl 2ml Vial) 50 mcg PRN Q5MIN PRN IV MODERATE TO SEVERE PAIN; Start 09/01/20 at 07:00; Stop 09/02/20 at 06:59; Status DC Morphine Sulfate (Morphine Sulfate) 1 mg PRN Q10MIN PRN IV SEVERE PAIN 7-10; Start 09/01/20 at 07:00; Stop 09/02/20 at 06:59; Status DC Ringer's Solution 1,000 ml @ 30 mls/hr Q24H IV Last administered on 09/01/20at 10:36; Start 09/01/20 at 07:00; Stop 09/01/20 at 18:59; Status DC Hydromorphone HCl (Dilaudid) 0.5 mg PRN Q10MIN PRN IV SEV PAIN, Second choice; Start 09/01/20 at 07:00; Stop 09/02/20 at 06:59; Status DC Prochlorperazine Edisylate (Compazine) 5 mg PACU PRN PRN IV NAUSEA, MRX1; Start 09/01/20 at 07:00; Stop 09/02/20 at 06:59; Status DC Apixaban (Eliquis) 5 mg BID PO ; Start 08/31/20 at 21:00; Status UNV Lidocaine HCl (Viscous Lidocaine) 15 ml STK-MED ONCE .ROUTE ; Start 09/01/20 at 08:58; Stop 09/01/20 at 08:58; Status DC Lidocaine HCl (Xylocaine 2% Topical 30gm Tube) 30 nino STK-MED ONCE TP ; Start 09/01/20 at 08:58; Stop 09/01/20 at 08:59; Status DC Benzocaine (Hurricaine One) 1 spray STK-MED ONCE .ROUTE ; Start 09/01/20 at 08:58; Stop 09/01/20 at 08:59; Status DC Lidocaine HCl (Xylocaine 2% Topical 30gm Tube) 1 nino 1X ONCE TP Last administe red on 09/01/20at 10:32; Start 09/01/20 at 09:15; Stop 09/01/20 at 09:17; Status DC Lidocaine HCl (Viscous Lidocaine) 15 ml 1X ONCE SWSW Last administered on 09/01/20at 10:32; Start 09/01/20 at 09:15; Stop 09/01/20 at 09:17; Status DC Benzocaine (Hurricaine One) 2 spray 1X ONCE MM Last administered on 09/01/20at 10:31; Start 09/01/20 at 09:15; Stop 09/01/20 at 09:17; Status DC Propofol (Diprivan) 200 mg STK-MED ONCE IV ; Start 09/01/20 at 10:30; Stop 09/01/20 at 10:30; Status DC Lidocaine HCl (Lidocaine Pf 2% Vial) 5 ml STK-MED ONCE .ROUTE ; Start 09/01/20 at 10:30; Stop 09/01/20 at 10:30; Status DC Amiodarone HCl 150 mg/Dextrose 103 ml @ 618 mls/hr 1X ONCE IV Last administered on 09/01/20at 11:01; Start 09/01/20 at 11:00; Stop 09/01/20 at 11:09; Status DC Fentanyl Citrate (Fentanyl 2ml Vial) 100 mcg STK-MED ONCE .ROUTE ; Start 09/01/20 at 11:33; Stop 09/01/20 at 11:34; Status DC Lisinopril (Prinivil) 5 mg DAILY PO Last administered on 09/03/20at 08:21; Start 09/03/20 at 09:00 Active Scripts Active Furosemide 20 Mg Tablet 1 Tab PO PRN DAILY PRN 30 Days For weight gain > 1 Kg. Dry weight 75.8 KG Lisinopril 5 Mg Tablet 5 Mg PO DAILY 30 Days Metoprolol Succinate ( Xl ) (Metoprolol Succinate) 100 Mg Tab.er.24h 50 Mg PO DAILY 90 Days Eliquis (Apixaban) 5 Mg Tablet 5 Mg PO BID 30 Days Pantoprazole Sodium (Pantoprazole Sodium) 40 Mg Tablet.dr 40 Mg PO DAILYAC 30 Days Polyethylene Glycol 3350 17 Gm Powd.pack 17 Gm PO PRN DAILY PRN 28 Days Bisacodyl 5 Mg Tablet. 5 Mg PO PRN DAILY PRN 14 Days Acetaminophen 500 Mg Tablet 500 Mg PO PRN Q6HRS PRN 30 Days Aspirin Ec (Aspirin) 81 Mg Tablet. 81 Mg PO DAILYWBKFT 30 Days Duoneb 0.5-3(2.5) Mg/3 Ml (Albuterol/Ipratropium) 3 Ml Ampul.neb 3 Ml NEB RTQID 30 Days Vitamin C (Ascorbic Acid) 500 Mg Tablet 500 Mg PO DAILY 30 Days Thera-M Tablet (Multivits,Ca,Minerals/Iron/Fa) 1 Each Tablet 1 Tab PO DAILY 30 Days Klor-Con M20 (Potassium Chloride) 20 Meq Tab.er.prt 20 Meq PO DAILYWBKFT 30 Days Percocet 5-325 Mg Tablet (Oxycodone/Acetaminophen) 1 Each Tablet 1 Tab PO PRN Q6HRS PRN 6 Days Reported Symbicort 80-4.5 Mcg Inhaler (Budesonide/Formoterol Fumarate) 10.2 Gm Hfa.aer.ad 2 Puff IH BID Vitals/I & O Vital Sign - Last 24 Hours 09/03/20 09/03/20 09/03/20 09/03/20 09:30 10:53 15:00 15:00 Temp 98.9 99.0 98.9 99.0 Pulse 81 85 Resp 20 20 20 B/P (MAP) 96/55 (69) 95/85 (88) Pulse Ox 96 95 94 96 O2 Delivery Nasal Cannula Nasal Cannula Venturi Mask Nasal Cannula O2 Flow Rate 5.0 5.0 6.0 5.0 09/03/20 09/03/20 09/03/20 09/04/20 19:20 20:00 23:15 00:58 Temp 100.6 99.0 100.6 99.0 Pulse 87 79 Resp 22 22 20 B/P (MAP) 123/70 (87) 109/55 (73) Pulse Ox 96 95 95 O2 Delivery Nasal Cannula Nasal Cannula Nasal Cannula Nasal Cannula O2 Flow Rate 4.0 3.0 5.0 5.0 09/04/20 09/04/20 02:00 07:37 Temp 98.3 98.3 Pulse 76 Resp 18 B/P (MAP) 112/60 (77) Pulse Ox 98 O2 Delivery Nasal Cannula Nasal Cannula O2 Flow Rate 5.0 3.0 Intake and Output 09/03/20 09/03/20 09/04/20 15:00 23:00 07:00 Intake Total 560 ml 0 ml 560 ml Output Total 1250 ml 1400 ml 475 ml Balance -690 ml -1400 ml 85 ml Justifications for Admission Other Justification Afib RVR Nutrition Consultation Dietary Evaluation: Recommendations by RD: Dietary education by RD, Increase Calorie Intake, Protein supplementation Comments: Continue w/cardiac diet as ordered, honor food preferences, provide snacks as requested REC Magic cup (orange) w/lunch and dinner REC Vit C, MVI - wound healing Expected Outcomes/Goals: PO intake to meet >75% est needs Malnutrition Findings: Body Fat Depletion (Non Severe: Mild Depletion Weight Status: Appropriate WOO DELUNA MD Sep 04, 2020 08:52
[2020-09-04] MEDS: APIXABAN 5 MG TABLET. PO SCH (09:44)
[2020-09-04] MEDS: DIGOXIN 125 MCG TABLET. PO SCH (09:44)
[2020-09-04] MEDS: ASPIRIN ENTERIC COATED 81 MG TABLET.DR. PO SCH (09:44)
[2020-09-04] MEDS: POTASSIUM CHLORIDE 20 MEQ TABLET.ER. PO SCH (09:44)
[2020-09-04] MEDS: METOPROLOL SUCC 24HR ER 100 MG TAB.ER.24H. PO SCH (09:45)
[2020-09-04] MEDS: LISINOPRIL 5 MG TABLET. PO SCH (09:45)
[2020-09-04] MEDS ORDERED: POTASSIUM CHLORIDE 20 MEQ TABLET.ER. PO ONE (10:45)
[2020-09-04 11:00] VITALS: BP 137/68
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
[2020-09-04] MEDS: FUROSEMIDE 40 MG TABLET. PO SCH (11:38)
[2020-09-04] MEDS ORDERED: DIGO125T3 PO (12:17)
[2020-09-04] MEDS ORDERED: FURO-68 PO (12:18)
--- NOTE | 2020-09-04 12:22 | PDOC ---
RAMIRO LAGUERRE PACKAGING MACHINE OPERATOR 09/04/20 1222: CARDIO Progress Notes Date and Time Date of Service 09/04/20 Time of Evaluation 1200 Subjective Subjective: No Chest Pain, No shortness of breath, No Palpitations Vitals Vitals Vital Signs Date Time Temp Pulse Resp B/P (MAP) Pulse Ox O2 Delivery O2 Flow Rate FiO2 09/04/20 11:00 98.0 80 16 137/68 (91) 96 Nasal Cannula 5.0 98.0 Weight Weight [ ] Input and Output Intake and Output Intake and Output 09/04/20 07:00 Intake Total 1120 ml Output Total 3125 ml Balance -2005 ml Intake Oral 1120 ml Output Urine Total 3125 ml Laboratory Labs Laboratory Tests Test 09/04/20 06:20 White Blood Count 8.9 x10^3/uL (4.0-11.0) Red Blood Count 4.30 x10^6/uL (4.30-5.70) Hemoglobin 12.4 g/dL (13.0-17.5) Hematocrit 37.5 % (39.0-53.0) Mean Corpuscular Volume 87 fL (79-100) Mean Corpuscular Hemoglobin 29 pg (25-35) Mean Corpuscular Hemoglobin Concent 33 g/dL (31-37) Red Cell Distribution Width 19.2 % (11.5-14.5) Platelet Count 185 x10^3/uL (140-400) Neutrophils (%) (Auto) 60 % (31-73) Lymphocytes (%) (Auto) 19 % (24-48) Monocytes (%) (Auto) 11 % (0-9) Eosinophils (%) (Auto) 8 % (0-3) Basophils (%) (Auto) 2 % (0-3) Neutrophils # (Auto) 5.4 x10^3/uL (1.8-7.7) Lymphocytes # (Auto) 1.7 x10^3/uL (1.0-4.8) Monocytes # (Auto) 0.9 x10^3/uL (0.0-1.1) Eosinophils # (Auto) 0.7 x10^3/uL (0.0-0.7) Basophils # (Auto) 0.2 x10^3/uL (0.0-0.2) Sodium Level 141 mmol/L (136-145) Potassium Level 3.4 mmol/L (3.5-5.1) Chloride Level 104 mmol/L (98-107) Carbon Dioxide Level 34 mmol/L (21-32) Anion Gap 3 (6-14) Blood Urea Nitrogen 11 mg/dL (8-26) Creatinine 1.1 mg/dL (0.7-1.3) Estimated GFR (Cockcroft-Gault) 65.4 Glucose Level 93 mg/dL (70-99) Calcium Level 8.1 mg/dL (8.5-10.1) Physical Exam HEENT: Neck Supple W Full Motion Chest: Symmetric LUNGS: Other (diminished bases) Heart: RRR (SR) Abdomen: Soft N/T Extremities: No Edema, No Calf Tenderness Neurology: alert, oriented, follow commands Assessment Assessment 1. Acute respiratory failure secondary to a/c CHF, COPD. On home O2 2. Acute on chronic diastolic/systolic CHF: better compensated 3. PAFIB/flutter with RVR; s/p CV. Brief burst of PAFIB this am on tele, otherwise maintaining SR 4. Mild troponin elevation; peak 0.1, demand mediated 5. Severe mixed ischemic, non-ischemic cardiomyopathy; LVEF 30% 6. Hypertension; controlled 6. CAD; Recent LHC revealed no intervenable lesions. LCx stent is patent 7. PAD; s/p recent SEISMOGRAPH SHOOTER of the LSFA. Has TRUCK MECHANIC of the right SFA. No critical limb ischemia. Has failed outpatient clinic follow up 8. JOE with hyperkalemia: resolved 9. Poor treatment compliance; plans for home with 11. Hyperthyroidism: US unremarkable. possibly amio induced vs recent viral thyroiditis Recommendations HF optimization with Lasix, Toprol, lisinopril Metoprolol, Digoxin for rate control Eliquis for stroke prophylaxis Outpatient f/u of PAD with consideration of SEISMOGRAPH SHOOTER of the right SFA TRUCK MECHANIC. Discussed importance of compliance and follow up. Reinforced importance of treatment compliance and followup. Consider outpt AICD pending treatment compliance. Follow up in our office with Dr. Amarilis Freyfation of Admission Dx: Justifications for Admission: Justification of Admission Dx: Yes GRACY BRADSHAW MD 09/04/20 4011: CARDIO Progress Notes Plan Plan Pt. seen and examined. Agree with above MECHANICAL ENGINEERING ADVISOR note. Supportive care. He is at high risk of bouncing back due to poor social support, he has adamantly refused placement. RAMIRO LAGUERRE APRN Sep 04, 2020 12:22 GRACY BRADSHAW MD Sep 04, 2020 23:03
--- NOTE | 2020-09-04 13:29 | NUR ---
SS following up with discharge planning. SS reviewed pt chart and discussed with pt RN. Pt is currently requiring oxygen. COVID19 negative. Discharge orders received for home healthcare. Discharge orders and clinical sent to [facility], ; fax [phone]. Pt accepted on services. Six minute walk ordered. Pt has no home oxygen. SS will continue to follow for discharge planning.
[2020-09-04 15:00] VITALS: BP 117/63
[2020-09-04] MEDS: ANTI-COAG MONITOR BY PHARMACY. MC PRN (15:37)
--- NOTE | 2020-09-04 16:43 | NUR ---
SS following up with discharge planning. Script for oxygen received. SS phoned and faxed script and clinical for oxygen to [facility]. SS confirmed receipt of clinical. Oxygen tank provided to pt for home. Pt's RN also reported that pt does not have part D insurance and is in need of Eliquis. [facility], but [facility] get [facility] until after his appointment. Pt reported that he has already used a 30 day free trial card. Resources provided for [facility]. SS contacted [employer], , and they are faxing application over for Eliquis assistance. Pt and physician will need to complete application and return. SS will continue to follow for discharge planning.
--- NOTE | 2020-09-04 19:00 | NUR ---
Discharge Note: ANTONIA HAMILTON [place] Discharge instructions and discharge home medications reviewed and a copy given. All questions have been answered and understanding verbalized. Patient stated prior to discharge that he did not have any medications at home. Patient's brother called and brought patient's Eliquis to hospital to confirm prescription is filled. Patient educated on oxygen use and new digoxin prescription. Patient's brother at bedside during discharge education. Patient's multiple lesions and scabs on legs weeping during transfer to wheelchair. Refused wound to be dressed before discharging home. Discontinued lines and drains: Peripheral IV intact. Patient discharged to Home w/services with Family Member via Wheelchair
--- NOTE | 2020-09-05 10:16 | CARD ---
MR#: [id number] Date of Study: 09/01/2020 Ordering Physician: GRACY OLMOS, Referring Physician: GRACY OLMOS, Tech: Francine Weber APPROVED REPORT EXAM: Transesophageal echocardiogram with color flow Doppler and Synchronized Cardioversion. INDICATION COPD Atrial Fibrillation Congestive Heart Failure Tricuspid Valve TR P. [id number] TR Peak [id number] Reason For Test : Rule out Intracardiac Thrombus. PROCEDURE After obtaining informed consent, patient underwent transesophageal echo in the PACU. Type of Sedation : General Anesthesia Sedation was administered by Lele Henry. Sedation was achieved with Propofol 60 intravenously. Transesophageal probe was inserted and advanced into esophagus by Rolando Olmos MD. The AFUA was performed without complications. Synchronized Cardioversion acheived with 200 Joules after 1 attempt(s). Rhythm following Synchronized Cardioversion: Normal Sinus Rhythm with PAC's Throughout the procedure, the blood pressure, pulse oximetry, cardiac rhythm, and rate were monitored . The patient tolerated the procedure without adverse effects. Recovery from general anesthesia was une ventful and vital signs were stable. LEFT VENTRICLE The left ventricle is normal size. There is normal left ventricular wall thickness. The systolic func tion is severely impaired. The Ejection Fraction is 25-30%. There is global hypokinesis of the left v entricle. Tissue Doppler imaging reveals severe left ventricular diastolic dysfunction. No left ventr icle thrombus noted on this study. There is no ventricular septal defect visualized. There is no left ventricular aneurysm. There is no mass noted in the left ventricle. RIGHT VENTRICLE The right ventricle is normal size. There is normal right ventricular wall thickness. The right ventr icular systolic function is normal. ATRIA The left atrium size is normal. The right atrium is moderately dilated. The interatrial septum is int act with no evidence for an atrial septal defect or patent foramen ovale as noted on 2-D or Doppler i maging. There is no thrombus noted in the left atrial appendage. AORTIC VALVE The aortic valve is normal in structure and function. Doppler and Color Flow revealed no significant aortic regurgitation. There is no significant aortic valvular stenosis. MITRAL VALVE The posterior leaflet is restricted and has decreased mobility with suboptimal leaflet coaptation. Th ere is no evidence of mitral valve prolapse. There is no mitral valve stenosis. Doppler and Color-raquel w revealed moderate to severe mitral regurgitation. Likely due to restricted posterior leaflet and mo re central jet due to coaptation issues. TRICUSPID VALVE The tricuspid valve is normal in structure and function. Doppler and Color Flow revealed mild to mode rate tricuspid regurgitation with an estimated PAP of 36 mmHg. There is no tricuspid valve stenosis. PULMONIC VALVE The pulmonary valve is normal in structure and function. Doppler and Color Flow revealed no pulmonic valvular regurgitation. There is no pulmonic valvular stenosis. GREAT VESSELS The aortic root is normal in size. The ascending aorta is normal in size. The pulmonary artery is nor mal. The IVC is normal in size and collapses >50% with inspiration. Critical Notification Critical Value: No <Conclusion> The systolic function is severely impaired. The Ejection Fraction is 25-30%. There is global hypokinesis of the left ventricle. Doppler and Color-flow revealed moderate to severe mitral regurgitation. Likely due to restricted pos terior leaflet and more central jet due to coaptation issues. Doppler and Color Flow revealed mild to moderate tricuspid regurgitation with an estimated PAP of 36 mmHg. Successful CVN to SR. Signed by : Gracy Olmos, Electronically Approved : 09/01/2020 18:00:52
--- NOTE | 2020-09-06 12:18 | DS ---
DATE OF DISCHARGE: 09/04/2020 ADMISSION DIAGNOSES: Acute on chronic systolic congestive heart failure, chronic obstructive pulmonary disease, atrial fibrillation, elevated troponins, malnutrition, possible COVID-19. DISCHARGE DIAGNOSES: Resolving heart failure, atrial fibrillation, chronic obstructive pulmonary disease. CONSULTS: Dr. Santos, Dr. Morocho and Dr. Bustillos. PROCEDURES: None. HOSPITAL COURSE: The patient is a pleasant middle-aged male, who presented with heart failure. He also had AFib. We were concerned he could have COVID-19. He was admitted. We diuresed him. We did cardiac monitoring, checked him for COVID-19, which was negative. Got good rate control with negative chronotropic agents. We did consult Orthopedics because of some hip pain, but he is not a surgical candidate. Basically over the past week or so, he has improved. He returned to his baseline. We plan to discharge to home. DISPOSITION: Home. ACTIVITY: As tolerated. DIET: Low sodium. MEDICATIONS: Please see the MRAD. TOTAL TIME: 32 minutes. CLYDE BOND DO DR: MAT/[place]ell JOB#: [id number] / [id number]
== END 2020-09-04 19:15 | disposition home health service (06) | DRG 291 ==
LOC: ER 12:57 → ED HOLD 16:22 → 2 SOUTH 19:05 → 2 NORTH 09-04 01:00
PROVIDERS: ADMIT Family Medicine; ATTEND Family Medicine
PROC: B24BZZ4 Ultrasonography of Heart with Aorta, Transesophageal (ICD-10-PCS; principal; 2020-09-01 10:30)
PROC: 5A2204Z Restoration of Cardiac Rhythm, Single (ICD-10-PCS; 2020-09-01 10:30)
DX: I11.0 Hypertensive heart disease with heart failure (principal); E43 Unspecified severe protein-calorie malnutrition; J96.00 Acute respiratory failure, unspecified whether with hypoxia or hypercapnia; D68.9 Coagulation defect, unspecified; I47.2 Ventricular tachycardia; I48.20 Chronic atrial fibrillation, unspecified; I48.92 Unspecified atrial flutter; N17.9 Acute kidney failure, unspecified; I50.43 Acute on chronic combined systolic (congestive) and diastolic (congestive) heart failure; I42.8 Other cardiomyopathies; E78.00 Pure hypercholesterolemia, unspecified; E78.5 Hyperlipidemia, unspecified; E87.5 Hyperkalemia; F17.210 Nicotine dependence, cigarettes, uncomplicated; F43.10 Post-traumatic stress disorder, unspecified; G62.9 Polyneuropathy, unspecified; I25.10 Atherosclerotic heart disease of native coronary artery without angina pectoris; I27.81 Cor pulmonale (chronic); I48.0 Paroxysmal atrial fibrillation; J44.9 Chronic obstructive pulmonary disease, unspecified; M16.12 Unilateral primary osteoarthritis, left hip; M17.0 Bilateral primary osteoarthritis of knee; Z20.822 Contact with and (suspected) exposure to COVID-19; Z66 Do not resuscitate; Z90.49 Acquired absence of other specified parts of digestive tract; Z91.19 Patient's noncompliance with other medical treatment and regimen; Z95.5 Presence of coronary angioplasty implant and graft; Z96.649 Presence of unspecified artificial hip joint; Z99.81 Dependence on supplemental oxygen; F41.9 Anxiety disorder, unspecified; K44.9 Diaphragmatic hernia without obstruction or gangrene; L30.9 Dermatitis, unspecified; R74.01 Elevation of levels of liver transaminase levels
CPT/HCPCS: 36415; 71045; 76536; 80048; 80053; 83735; 83880; 84132; 84439; 84445; 84481; 84484; 85025; 85379; 85610; 92960; 93005; 93312; 93320; 93325; 94640; 94760; 96374; 96375; 99285; 99406; J0282; J1160; J1940; J2270; J2405; J2704; J3010; J3475; J3490; J7040; J7060; J7120; U0003; 92610-GN; 97110-GP; 97535-GO; G0378